=== PATIENT | female | born 1955 | race Caucasian/White ===

== ENCOUNTER → 2023-02-23 11:43 | Outpatient (CLI) | payer MEDICARE, SELFPAY ==
--- NOTE | ~2023-02-23 | XR_ITS ---
AP and lateral views of the bilateral hips Clinical history: Pain Findings: No acute fracture or dislocation is seen. There is severe left hip joint osteoarthritis, kaiden int space narrowing and prominent osteophyte formation. There is reactive sclerotic change. There is minimal degenerative change of the right hip joint.. Soft tissues are unremarkable. Impression: Severe left hip joint osteoarthritis. Minimal right hip joint osteoarthritis. Reviewed, dictated and finalized at location . Impression: Severe left hip joint osteoarthritis. Minimal right hip joint osteoarthritis.
== END ==
PROVIDERS: PCP Internal Medicine; Visit Provider Internal Medicine
DX: M16.0 Bilateral primary osteoarthritis of hip (principal)
CPT/HCPCS: 73521

== ENCOUNTER 2023-03-25 10:05 | Outpatient (CLI) | payer MEDICARE, SELFPAY ==
--- NOTE | 2023-03-25 10:35 | ECG_ITS ---
Measurements Intervals [place] Rate: 61 P: 2 [place]: 212 QRS: 7 QRSD: 74 T: 16 QT: 367 QTc: 371 Interpretive Statements SINUS RHYTHM WITH FIRST DEGREE AV BLOCK WITH OCCASIONAL VENTRICULAR PREMATURE COMPLEXES LOW QRS VOLTAGE IN PRECORDIAL LEADS [QRS DEFLECTION < 1.0 mV IN CHEST LEADS] ABNORMAL ECG NO PREVIOUS ECG AVAILABLE FOR COMPARISON Electronically Signed On 03-25-2023 15:40:38 CDT by Gagan Marquez M.D.
[2023-03-25 10:42] LABS: Hematocrit 42.5 % (37.0-47.0); Hemoglobin 14.4 g/dL (12.0-15.0)
[2023-03-25 10:54] LABS: Urine Cotinine NEGATIVE
[2023-03-25 12:25] LABS: Albumin Level 4.7 g/dL (3.5-5.1); Estimated Glomerular Filt Rate > 60
== END 2023-03-25 10:06 | disposition home or self-care (01) ==
PROVIDERS: PCP Internal Medicine; Visit Provider Orthopaedic Surgery
DX: Z01.810 Encounter for preprocedural cardiovascular examination (principal); Z01.812 Encounter for preprocedural laboratory examination; M16.12 Unilateral primary osteoarthritis, left hip; M54.16 Radiculopathy, lumbar region; E78.5 Hyperlipidemia, unspecified; I10 Essential (primary) hypertension; I44.0 Atrioventricular block, first degree
CPT/HCPCS: 80307; 82040; 82565; 85014; 85018; 93005

== ENCOUNTER 2023-05-27 11:34 | Outpatient (CLI) | payer MEDICARE, SELFPAY ==
[2023-05-27 13:09] LABS: Basophils Percent Auto 0.8 % (0.2-1.2); Eosinophils Absolute Auto 0.1 K/mm3 (0-0.3); Eosinophils Percent Auto 1.6 % (0-4.4); Hematocrit 43.2 % (37.0-47.0); Hemoglobin 14.4 g/dL (12.0-15.0); Immature Granulocyte Absolute 0.01 K/mm3 (0.00-0.031); Immature Granulocyte Percent A 0.2 % (0-0.5); Lymphocytes Absolute Auto 2.39 K/mm3 (0.9-3.2); Lymphocytes Percent Auto 47.4 % (18.3-44.2); Mean Corpuscular HGB Conc 33.3 g/dl (32-36); Mean Corpuscular Hemoglobin 34.4 pg (26-34); Mean Corpuscular Volume 103.3 fl (80-100); Mean Platelet Volume 9.9 fl (7.4-10.4); Monocytes Absolute Auto 0.5 K/mm3 (0.1-0.6); Monocytes Percent Auto 10.5 % (2.6-8.5); Neutrophils Percent Auto 39.5 % (45.5-73.1); Platelet Count Result 199 k/mm3 (150-375); Red Blood Count 4.18 M/mm3 (4.2-5.4); Red Cell Distribution Width 13.2 % (11.5-14.5)
[2023-05-27 13:19] LABS: Urine Cotinine NEGATIVE
[2023-05-27 13:21] LABS: Albumin Level 4.7 g/dL (3.5-5.1); Estimated Glomerular Filt Rate > 60; Glucose 92 mg/dL (65-110)
[2023-05-27 13:23] LABS: Hemoglobin A1C 5.6 % (<5.7)
== END 2023-05-27 11:35 | disposition home or self-care (01) ==
LOC: ANHSURGERY 11:36
PROVIDERS: PCP Internal Medicine; Visit Provider Orthopaedic Surgery
DX: Z01.818 Encounter for other preprocedural examination (principal); M16.12 Unilateral primary osteoarthritis, left hip
CPT/HCPCS: 80307; 82040; 82565; 82947; 83036; 85025; 87081

== ENCOUNTER 2023-06-23 00:07 | Day surgery (SDC) | payer MEDICARE, SELFPAY ==
[2023-05-27 11:45] VITALS: BMI 33.8
--- NOTE | 2023-05-27 12:20 | PC.NURSE ---
Report to the Outpatient Waiting Room, entrance under the green pavilion located off [facility], at time __0630 on date _06/23/23 . Planned Procedure Time: __30 . Time changes happen often and if your time is changed the preop area will call you the afternoon before. - You and your visitor will be asked to self-screen and do not enter if you have any COVID symptoms. - A mask is optional within the hospital at this time. Patients may have clear liquids (water, carbonated beverages, clear teas, apple juice) until 3 hours prior to surgery( 5:30 AM ) with a maximum of 20 ounces. - No food from midnight until time of surgery Take the following medications with a SIP of water the morning of surgery: GABAPENTIN .MORPHINE IF NEEDED FOR PAIN, TRAMADOL DO NOT STOP ANY OF YOUR OTHER PRESCRIPTION MEDICATIONS PRIOR TO SURGERY ?EXCEPT THE FOLLOWING Medications to discontinue per physician ____MAY CONTINUE CELECOXIB PER DR JACOB Please no make-up, nail [place] islander, hairspray, perfume, deodorant, or body powder the day of surgery. No jewelry (including any body piercings) or valuables the day of surgery, leave them at home. Please take a shower or bath the night before, or the morning of, surgery with an antibacterial soap. Wear comfortable, loose fitting clothing. Children are encouraged to wear pajamas. - Jewelry must be removed prior to entering the operating room. Rings and piercings that are not removed may be cut off. - The hospital will not accept responsibility for valuables. - Please leave all valuables, including medications, at home the day of surgery. If you are going home after surgery, a licensed rolloff driver must drive you home. - NO public transportation without another adult if you receive anesthesia. - We recommend that an adult stay with you for 24 hours following discharge. - We also recommend that you do not drive, make important decision, drink alcoholic beverages, or take any drugs that were not prescribed by your health care provider for at least 24 hours after your discharge time. Follow any additional instructions given to you from your surgeon. If you or anyone in your household have experienced Covid symptoms in the past week, please notify your surgeon or the nurse liaison at the phone number below for possible testing. VERBAL AND WRITTEN instructions given to __PATIENT AND SPOUSE MARCHARLENE and asked if any additional questions and then verbalized understanding. Patient advised to call surgeon office or pre surgery nurse liaison [phone] if any additional questions.
[2023-05-27 12:46] VITALS: BP 135/83; PULSE 80; RESP 18; TEMP 36.7; O2SAT 97
[2023-06-23] VITALS (16 sets, daily range): BP systolic 114–153; BP diastolic 63–88; PULSE 64–104; RESP 12–20; TEMP 35.7–37; O2SAT 92–100
--- NOTE | ~2023-06-23 | XR_ITS ---
XR hip LT min 2V DATE: 06/23/2023 11:01 INDICATION: Left total hip replacement, postoperative examination TECHNIQUE: Postoperative AP and crosstable lateral views COMPARISON: 02/23/2023 bilateral hips FINDINGS: There is surgical resection of left femoral head neck and placement of left total hip prost hesis. No fracture or dislocation is evident. There is expected subcutaneous emphysema shortly postop eratively. IMPRESSION: Status post left total hip arthroplasty Reviewed, dictated and finalized at location L. DETAILER
[2023-06-23] MEDS: ACETAMINOPHEN 500 MG TABLET 1000 MG PO (06:46)
[2023-06-23] MEDS: LACTATED RINGERS 1,000 ML 30 ML IV CONT ×3 (06:50→11:48)
--- NOTE | 2023-06-23 07:21 | WPDANESEPPF ---
Anes - Initial Pre Proc Eval Procedure: Operation Date: 06/23/23 08:30 Proposed Procedures p Left Total Hip Arthroplasty - Raul Young MD Date/Time: 06/23/23 07:21 Surgeon: Raul Young MD Pre Op Diagnosis: primary OA left hip Patient Data Age: 67 Gender: F Height: 1.61 m Weight: 86.5 kg Last Vital Signs Temp 37.0 C 06/23/23 06:18 Pulse 72 06/23/23 06:18 Resp 20 06/23/23 06:18 BP 153/82 H 06/23/23 06:18 Pulse Ox 99 06/23/23 06:18 O2 Del Method Room Air 06/23/23 06:18 Allergies Allergy/AdvReac Type Severity Reaction Status Date / Time codeine Allergy Severe hypotension Verified 06/23/23 06:22 /nausea hydrocodone Allergy Mild LOW BLOOD Verified 05/27/23 11:47 PRESSURE zinc Allergy Mild Rash Verified 05/27/23 11:47 amitriptyline Allergy Unknown mouth sores Verified 06/23/23 06:22 fluorescein Allergy Unknown unknown Verified 05/27/23 11:47 medroxyprogesterone Allergy Unknown Nausea Verified 06/23/23 06:22 Penicillins Allergy Unknown Nausea/mouth Verified 06/23/23 06:22 sores rosuvastatin Allergy Unknown Nausea Verified 05/27/23 11:47 Sulfa (Sulfonamide Allergy Unknown Hives Verified 05/27/23 11:47 Antibiotics) keftabs Allergy Intermediate Swelling Uncoded 05/27/23 11:47 FLU/PNEUMONIA VACINE Allergy Mild unknown Uncoded 06/23/23 06:22 TRICYCLICANTIDE Allergy Mild RASH Uncoded 05/27/23 11:47 paper tape Allergy Unknown blisters Uncoded 06/23/23 06:22 Home Medications Medication Instructions Recorded Confirmed Type celecoxib 200 mg capsule 200 mg PO BID 04/09/20 06/23/23 History gabapentin 600 mg tablet 600 mg PO TID 04/09/20 06/23/23 History metoprolol succinate 25 mg 50 mg PO HS 04/09/20 06/23/23 History tablet,extended release 24 hr omeprazole 40 mg capsule,delayed 40 mg PO DAILY 04/09/20 06/23/23 History release tramadol 50 mg tablet 50 mg PO TID PRN Pain 04/09/20 06/23/23 History acetaminophen 500 mg tablet 500 mg PO Q6H PRN Pain 05/27/23 06/23/23 History (Tylenol Extra Strength) azathioprine 50 mg tablet 50 mg PO DAILY 05/27/23 06/23/23 History carbidopa 25 mg-levodopa 100 mg 1 tablet PO HS LEG SPASMS 05/27/23 06/23/23 History tablet fluticasone propionate 50 1 spray intranasal DAILY 05/27/23 06/23/23 History mcg/actuation nasal spray,suspension (Flonase Allergy Relief) golimumab 50 mg/0.5 mL 50 mg subcut .Bi Monthly 05/27/23 06/23/23 History subcutaneous pen injector (Simponi) morphine 30 mg capsule,extended 15 mg PO DAILY PRN Pain 05/27/23 06/23/23 History release 24 hr multiphase ondansetron HCl 4 mg tablet 4 mg PO Q8H PRN NASEA 05/27/23 06/23/23 History prednisone 5 mg tablet 5 mg PO DIRECTED SWELLING 05/27/23 06/23/23 History Patient hx anesthesia problems: post op nausea/vomiting Family hx anesthesia problems: post op nausea/vomiting Results Review: All pre-operative results and documents have been reviewed as part of the pre-operative evaluation. FORMERLY [facility], [facility]–1983 Past Medical History Medical History Fibromyalgia Fibrositis GERD (gastroesophageal reflux disease) Hyperlipidemia Hypertension Insomnia Osteoporosis Reflex sympathetic dystrophy of left lower extremity Rheumatoid arthritis Social History Social History Smoking status: Never smoker Tobacco type: cigarettes Smoking end date: 07/23/69 Additional smoking assessment comments: DENIES ANY FORM OF TOBACCO USE Alcohol intake: former Substance use: never Lack of Transportation: No Lack of Food: Never True Current Housing: I Have Housing Concerned About Future Housing: No Difficulty Paying Gas/Electric Bills: No Difficulty Paying for Meds: No Currently Unemployed: No Education: High School Diploma/GED Difficulty w/ Childcare or Family Care: No Living arrangements: with family Spiritual care concerns: No
--- NOTE | 2023-06-23 07:23 | WPDHPUPDATE1 ---
History and Physical Update Update Date/Time: 06/23/23 07:23 History and Physical has been reviewed, including an updated exam of the patient. There are NO changes in the patient's condition. Risks, benefits, and alternatives have been discussed and questions answered. Patient agrees to proceed with procedure.
[2023-06-23] MEDS: SCOPOLAMINE 1 MG PATCH 1 PATCH TRANSDERM (07:39)
[2023-06-23] MEDS: TRANEXAMIC ACID 1,000MG/ISO100 1,000 MG/100 ML BAG 200 MG IVPB (08:15)
[2023-06-23] MEDS: ceFAZolin 2 GM/D5W 50 ML 2 GM/50 ML BAG IVPB (08:33)
--- NOTE | 2023-06-23 11:13 | W.PM.PROC2 ---
Procedure Note - Detailed Date of Procedure 06/23/23 Pre-op Diagnosis primary OA left hip Post-op Diagnosis Same Procedure Performed Left Total Hip Arthroplasty Surgeon Raul Young MD Anesthesia General Description of Procedure The patient was given preoperative antibiotics. A general anesthetic was administered. The patient was carefully placed in the lateral decubitus position on the PEG board. The shoulders and hips were carefully positioned for component and leg length positioning reference. The hip was prepped and draped in the usual sterile fashion. A longitudinal incision was created over the posterior aspect of the greater trochanter. Careful dissection was brought down through the deep fascia with electrocautery. A minimally invasive optimized posterior approach to the hip was performed. The short external rotators and capsule were taken down in an L-shaped capsulotomy. The tissue was tagged for later repair using number 2 high strength suture. The femoral neck was measured and taken in situ. The femoral head was removed. The acetabulum was carefully exposed. The inferior capsule was released. The labrum was resected. The acetabulum was sequentially reamed to the intended cup size. The cup was impacted into position with excellent press-fit. Typical anatomic landmarks, including the bony contact points as well as the inferior transverse acetabular ligament were used to confirm cup positioning with preoperative templating. Attention was turned to the femur, which was carefully exposed. The hip was reamed and then broached sequentially. Excellent press-fit was obtained with the broach. The hip was trialed. Measurements were utilized, including the lesser trochanter as well as the center of the femoral head and the tip of the trochanter, and excellent assessment of the offset and leg lengths were confirmed. The real component was impacted into position. Trialing confirmed appropriate leg length and offset with soft tissue balancing as well apparent feel of the leg, both at the knee and the heel. Soft tissues were assessed using the the iliotibial band. Reduction of the posterior capsule and external rotators were also used as a secondary assessment. The hip was copiously irrigated with pulsatile lavage antibiotic solution periodically throughout the procedure. The real components were then assembled and reduced. The hip was stable throughout typical maneuvers, including extension, external rotation to 70 degrees, the position of sleep as well as flexion to 90 degrees with internal rotation past 45 degrees. The shake test confirmed stability without impingement. Osteophytes were removed as necessary. The short external rotators and capsule were repaired back to the posterior trochanter through drill holes. The deep fascia was repaired with running number 2 Quill suture, followed by 0 Stratafix suture and 2-0 Stratafix suture in the dermis. Steri-Strips were placed on the skin, followed by a sterile silver occlusive dressing. There were no complications. Meticulous hemostasis was maintained with the AquaMantys device. The patient was brought to the recovery room in stable condition. There were no complications. Implants The Accolade II hip stem, 127 degree size 5 , was utilized with excellent press-fit. The 52 mm Trident II acetabular component was impacted with excellent press-fit stability. The +2.5, 36 mm Biolox ceramic femoral head was utilized. 10 degree elevated liner. Estimated Blood Loss 200 Drains No Packing No Pathology None sent Complications No immediate complications Condition Stable Disposition PACU [facility] Billing Surgery - Charge Forward: Surgery Billing
[2023-06-23] MEDS: fentaNYL CITRATE INJ (*CRX) 100 MCG/2 ML VIAL 25 MCG IV PUSH ×8 (11:15→11:57)
[2023-06-23 12:27] LABS: Hematocrit 37.5 % (37.0-47.0); Hemoglobin 12.4 g/dL (12.0-15.0)
--- NOTE | 2023-06-23 12:33 | ADMGEN ---
This patient, Lexi Mcneil, was admitted to 3 [facility] Surg Room 323-01. Patient/family oriented to hospital policies and general routines including ID bracelet, bed and alarms, visiting hours, pain management, procedures, bathroom and other care routines, personal items, smoking policy, room service/diet, and visiting hours. Information on how to activate the Rapid Response Team has been discussed. Patient/Family are encouraged to report perceived risks to care and to ask questions if they do not understand what they are told or what they should do.
[2023-06-23] MEDS: oxyCODONE HCL (*CRX) 5 MG TAB IR 10 MG (13:57)
[2023-06-23] MEDS: VANCOMYCIN 1,000 MG/NS 250 ML 1,000 MG/250 ML BAG 250 MG IVPB (18:04)
[2023-06-23] MEDS: CELECOXIB 200 MG CAPSULE PO (18:05)
[2023-06-23] MEDS: SENNA/DOCUSATE SODIUM TABLET 2 TAB PO (18:05)
[2023-06-23] MEDS: ASPIRIN 81 MG ENTERIC TABLET PO (18:05)
[2023-06-23] MEDS: oxyCODONE HCL (*CRX) 5 MG TAB IR PO (18:15)
--- NOTE | 2023-06-23 18:55 | PC.NURSE ---
This pt ok'ed by Hannah to take her home morphine medication. Pt did not bring medication with except for loose pills (not in pharmaceutical bottle). Pt stated she would just take some of her own medication. Informed pt she was not to take her own medications, that we would give those. Asked to take her home medications home with him as we would provide all of her meds. Pt and agreeable. Pharmacy requested clarification. Will treat with PRNs available at this time and seek clarification with Hannah 06/24/23 AM
[2023-06-23] MEDS: PANTOPRAZOLE 40 MG TABLET PO (21:02)
[2023-06-23] MEDS: CARBIDOPA/LEVODOPA 25/100 MG TABLET 1 TABLET PO (21:02)
[2023-06-23] MEDS: GABAPENTIN 300 MG CAPSULE 1200 MG PO (21:02)
[2023-06-23] MEDS: METOPROLOL SUCCINATE EXT REL 50 MG TABCR PO (21:02)
[2023-06-23] MEDS: oxyCODONE HCL (*CRX) 5 MG TAB IR 10 MG PO (22:25)
[2023-06-24 00:35] VITALS: BP 110/65; PULSE 88; RESP 16; TEMP 36.2; O2SAT 94
[2023-06-24] MEDS: VANCOMYCIN 1,000 MG/NS 250 ML 1,000 MG/250 ML BAG 250 MG IVPB (04:51)
[2023-06-24] MEDS: oxyCODONE HCL (*CRX) 5 MG TAB IR 10 MG PO ×2 (04:51→10:13)
[2023-06-24 05:10] VITALS: BP 116/71; PULSE 90; RESP 18; TEMP 36.1; O2SAT 98
[2023-06-24 06:50] LABS: Basophils Percent Auto 0.2 % (0.2-1.2); Hematocrit 37.4 % (37.0-47.0); Hemoglobin 11.3 g/dL (12.0-15.0); Immature Granulocyte Absolute 0.05 K/mm3 (0.00-0.031); Immature Granulocyte Percent A 0.4 % (0-0.5); Lymphocytes Absolute Auto 1.87 K/mm3 (0.9-3.2); Lymphocytes Percent Auto 15.4 % (18.3-44.2); Mean Corpuscular HGB Conc 30.2 g/dl (32-36); Mean Corpuscular Hemoglobin 34.2 pg (26-34); Mean Corpuscular Volume 113.3 fl (80-100); Mean Platelet Volume 10.4 fl (7.4-10.4); Monocytes Absolute Auto 1.1 K/mm3 (0.1-0.6); Neutrophils Absolute Auto 9.1 K/mm3 (1.3-6.7); Platelet Count Result 122 k/mm3 (150-375); Red Cell Distribution Width 13.1 % (11.5-14.5); White Blood Count 12.1 K/mm3 (4.5-10.0)
[2023-06-24 09:04] LABS: Platelet Estimate Decreased (Adequate)
[2023-06-24 09:05] LABS: Schistocytes None Seen (NORMAL)
[2023-06-24 09:19] LABS: Anion Gap 10 mmol/L (8-16); Blood Urea Nitrogen 20 mg/dL (7-17); Calcium 8.9 mg/dL (8.4-10.2); Carbon Dioxide 22 mmol/L (22-30); Chloride 105 mmol/L (98-107); Estimated CRCL calculation 72 ml/min; Estimated Glomerular Filt Rate > 60; Glucose 101 mg/dL (65-110); Potassium 4.3 mmol/L (3.4-5.0); Sodium 137 mmol/L (137-145)
[2023-06-24 09:51] VITALS: BP 126/55; PULSE 96; RESP 18; TEMP 36.1; O2SAT 98
[2023-06-24] MEDS: CELECOXIB 200 MG CAPSULE PO (10:11)
[2023-06-24] MEDS: PANTOPRAZOLE 40 MG TABLET PO (10:11)
[2023-06-24] MEDS: GABAPENTIN 300 MG CAPSULE 600 MG PO (10:11)
[2023-06-24] MEDS: azaTHIOprine 50 MG TABLET PO (10:12)
[2023-06-24] MEDS: ASPIRIN 81 MG ENTERIC TABLET PO (10:12)
[2023-06-24] MEDS: ACETAMINOPHEN 325 MG TABLET 650 MG PO (10:18)
--- NOTE | 2023-06-24 10:18 | WPDANESPN ---
Anes - Prog Note Post-Op Date/Time: 06/24/23 10:18 Cardiovascular status: normal Respiratory status: normal Airway patency: baseline Mental status: baseline Post-Op hydration status: normal Vital Signs: Last Vital Signs Temp 36.1 C L 06/24/23 05:10 Pulse 90 06/24/23 05:10 Resp 18 06/24/23 05:10 BP 116/71 06/24/23 05:10 Pulse Ox 98 06/24/23 05:10 O2 Del Method Room Air 06/23/23 22:03 O2 Flow Rate 3 06/23/23 12:30 Pain Score (VAS): 2 I/O: Intake & Output 06/23/23 06/24/23 06/24/23 23:59 07:59 15:59 Intake Total 490 1070 Balance 490 1070 Laboratory Tests 06/24/23 06:14 06/24/23 06:14 06/23/23 06/24/23 12:24 06:14 WBC 12.1 H RBC 3.30 L Hgb 12.4 11.3 L Hct 37.5 37.4 MCV 113.3 H MCH 34.2 H MCHC 30.2 L RDW 13.1 Plt Count 122 L MPV 10.4 Immature Gran % (Auto) 0.4 Neut % (Auto) 75.0 H Lymph % (Auto) 15.4 L [place] % (Auto) 9.0 H Eos % (Auto) 0.0 Baso % (Auto) 0.2 Lymph # (Auto) 1.87 [place] # (Auto) 1.1 H Eos # (Auto) 0.0 Baso # (Auto) 0.0 Abs Immat Gran (auto) 0.05 H Absolute Neuts (auto) 9.1 H Absolute Nucleated RBC 0.0 Nucleated RBC % 0.0 Platelet Estimate Decreased Schistocytes None seen Sodium 137 Potassium 4.3 Chloride 105 Carbon Dioxide 22 Anion Gap 10 BUN 20 H Creatinine 0.70 Estim Creat Clear Calc 72 Estimated GFR > 60 Glucose 101 Calcium 8.9 Post-procedural complaints: none Patient Feedback: Patient satisfied with anesthetic care.
== END 2023-06-24 14:05 | disposition home or self-care (01) ==
LOC: ANHSURGERY 07:33 → ANH3MEDSUR 12:09
PROVIDERS: PCP Internal Medicine; Visit Provider Orthopaedic Surgery
PROC: (CPT 27130; principal; 2023-06-23 08:30)
DX: M16.12 Unilateral primary osteoarthritis, left hip (principal); G90.522 Complex regional pain syndrome I of left lower limb; I10 Essential (primary) hypertension; E78.5 Hyperlipidemia, unspecified; K21.9 Gastro-esophageal reflux disease without esophagitis; M79.7 Fibromyalgia; M06.9 Rheumatoid arthritis, unspecified; M81.0 Age-related osteoporosis without current pathological fracture; Z87.891 Personal history of nicotine dependence; E66.9 Obesity, unspecified; Z68.34 Body mass index [BMI] 34.0-34.9, adult; Z79.620 Long term (current) use of immunosuppressive biologic
CPT/HCPCS: 27130; 36415; 73502; 80048; 85014; 85018; 85025; 86850; 86900; 86901; 97110; 97116; 97161; 97165; 97530; 97535; A9270; C1776; J0171; J0330; J0690; J1100; J1170; J1596; J1885; J2250; J2405; J2704; J2795; J3010; J3370; J7120

== ENCOUNTER 2023-10-05 13:13 | Outpatient (CLI) | payer MEDICARE, SELFPAY ==
--- NOTE | ~2023-10-05 | MR_ITS ---
EXAMINATION: MR lumbar spine wo con DATE: 10/05/2023 14:15 INDICATION: Radiculopathy, lumbar region. TECHNIQUE: Magnetic resonance imaging (MRI) of the lumbar spine was performed without intravenous con trast. Sequences included sagittal T2-weighted FSE, sagittal T2-weighted FS FSE, sagittal T1-weighted FSE, and axial T2-weighted FSE. COMPARISON: None FINDINGS: There is 20 degrees levoscoliosis of thoracolumbar spine. There is 3 mm retrolisthesis of L 2 on L3 and L3 on L4 and 3 mm anterolisthesis of L4 on L5. There is mildly decreased disc height at T 11-T12 and T12-L1, severely decreased disc height from L1-L2 through L3-L4, mildly decreased disc hei ght at L4-L5, and severely decreased disc height at L5-S1. The distal spinal cord signal intensity is normal. The conus medullaris is at T12-L1. The following disc levels are specifically discussed: L1-L2: The disc is bulging and has an annular fissure. There is severe bilateral facet joint osteoart hritis. There is moderate right and mild left neural foraminal stenosis. There is mild central canal stenosis. L2-L3: The disc is bulging. There is severe bilateral facet joint osteoarthritis. There is moderate b ilateral neural foraminal stenosis. There is mild central canal stenosis. L3-L4: The disc is bulging. There is severe bilateral facet joint osteoarthritis. There is mild right and moderate left neural foraminal stenosis. There is mild central canal stenosis. There is severe s tenosis of left lateral recess. L4-L5: The disc is bulging and has an annular fissure. There is severe bilateral facet joint osteoart hritis. There is mild bilateral neural foraminal stenosis. There is severe central canal stenosis. L5-S1: The disc is bulging and has an annular fissure. There is severe bilateral facet joint osteoart hritis. There is moderate bilateral neural foraminal stenosis. There is moderate central canal stenos is. IMPRESSION: 1. Severe lumbar spondylosis. 2. Thoracolumbar levoscoliosis. Reviewed, dictated and finalized at location E.
== END 2023-10-05 13:14 | disposition home or self-care (01) ==
LOC: ANHIMG 13:14
PROVIDERS: PCP Internal Medicine; Visit Provider Physician Assistant Surgical
DX: M43.06 Spondylolysis, lumbar region (principal); M41.85 Other forms of scoliosis, thoracolumbar region
CPT/HCPCS: 72148

== ENCOUNTER 2024-04-04 08:55 | Outpatient (CLI) | payer MEDICARE, SELFPAY ==
--- NOTE | ~2024-04-04 | XR_ITS ---
XR knee LT min 4V 04/04/2024 09:27 Indication: Left knee pain Procedure: 4 views left knee Comparison: 12/23/2021 Findings: There is a age-indeterminate lateral tibial plateau fracture, new since prior study. There is advanced osteoarthritis of the left knee. Small joint effusion. Impression: 1: Age-indeterminate lateral tibial plateau fracture, comminuted since 12/23/2021. 2: Severe tricompartment osteoarthritis. Reviewed, dictated and finalized at location B. Impression: 1: Age-indeterminate lateral tibial plateau fracture, comminuted since 2. 2: Severe tricompartment osteoarthritis.
--- NOTE | ~2024-04-04 | XR_ITS ---
XR hip LT 2V w AP pelvis Ordering provider: Raul Young MD History: . Z96.642 - Presence of left artificial hip joint . Comparison: October 19, 2023 FINDINGS: BONES: No acute fracture or dislocation. HIP JOINT SPACES: Left hip arthroplasty. Mild to moderate osteoarthritic changes of the right hip. SACROILIAC JOINT SPACES/LUMBAR SPINE: The sacroiliac joint spaces are normal. Mild degenerative tellez es of the visualized lower lumbar spine. PUBIC SYMPHYSIS: Normal. SOFT TISSUES: Soft tissue ossification or calcification lateral to the left hip. IMPRESSION: No acute osseous abnormality pelvis. Left hip arthroplasty unchanged Reviewed, dictated and finalized at location A.
== END 2024-04-04 08:56 | disposition home or self-care (01) ==
PROVIDERS: PCP Internal Medicine; Visit Provider Orthopaedic Surgery
DX: M25.562 Pain in left knee (principal); Z96.642 Presence of left artificial hip joint
CPT/HCPCS: 73502; 73564

== ENCOUNTER 2024-04-12 09:08 | Outpatient (CLI) | payer MEDICARE, SELFPAY ==
--- NOTE | ~2024-04-12 | CT_ITS ---
EXAMINATION: CT LE LT wo con DATE: 04/12/2024 09:42 INDICATION: Urinary primary osteoarthritis of left knee. TECHNIQUE: Computed tomography (CT) of the left lower limb was performed without intravenous contrast . Automated exposure control and iterative reconstruction technique were employed. The dose-length pr oduct was 1605.63 mGy-cm. COMPARISON: Left knee radiographs 04/04/2024, 12/23/2021 FINDINGS: There is a total left hip arthroplasty in near-anatomic alignment. No fracture. No peripros thetic lucency to suggest loosening or infection. There is a fracture deformity involving the medial and lateral tibial condyles with 11 mm depression of articular surface of lateral tibial condyle. The re is severe osteoarthritis of medial compartment and moderate osteoarthritis of lateral and patellof emoral compartments. There are loose bodies in the knee joint. There is a small knee joint effusion. IMPRESSION: 1. Fracture deformities of medial and lateral tibial condyles, likely subacute or chronic. 2. Severe left knee osteoarthritis. 3. Small left knee joint effusion with loose bodies. 4. Total left hip arthroplasty in near-anatomic alignment. Reviewed, dictated and finalized at location B.
== END 2024-04-12 09:09 | disposition home or self-care (01) ==
PROVIDERS: PCP Internal Medicine; Visit Provider Orthopaedic Surgery
DX: M17.12 Unilateral primary osteoarthritis, left knee (principal); M25.462 Effusion, left knee; M23.42 Loose body in knee, left knee; Z96.642 Presence of left artificial hip joint
CPT/HCPCS: 73700

== ENCOUNTER 2024-06-10 07:48 | Outpatient (CLI) | payer MEDICARE, SELFPAY ==
[2024-06-10 09:18] LABS: Urine Cotinine NEGATIVE
[2024-06-10 11:26] LABS: MRSA (PCR) NOT DETECTED (NOT DETECTE)
--- OUTSIDE RECORDS SUMMARY | 2024-06-17 14:43 | XMS_ITS | Encounter Summary ---
Author Organization [facility] Address [address] [place], [place] [address] [address] Care Team Providers Care Skein Mercerizing Machine Operator Name Role Phone Tim Altman MD Primary Care Provider [phone] Vani Waldrop MD Unavailable [phone] Casper Smith MD Unavailable Unavailable Reason for Visit * Reason Comments Rheumatoid Arthritis Fibromyalgia Encounter Details Date Type Department Care Team (Late st Contact Info) Description 10/19/2014 9:15 AM CDT Office Visit [facility] - Rheumatology [address] [place] [address] [phone] Casper Smith MD Rheumatoid arthritis(714.0) (HCC) (Primary Dx); Carpal tunnel syndrome, left; DJD (degenerative joint disease) of knee; Fibromyalgia; Insomnia; High risk medications (not anticoagulants) long-term use Social History Tobacco Use Types Packs/Day Years Used Date Smoking Tobacco: Never Smokeless Tobacco: Never Alcohol Use Standard Drinks/Week Comments No 0 (1 standard drink = 0.6 oz pur e alcohol) Sex and Gender Information Value Date Recorded Sex Assigned at Not on file Gender Identity Not on file Sexual Orientation Not on file documented as of this encounter Last Filed Vital Signs Vital Sign Reading Time Taken Comments Blood Pressure 122/76 10/19/2014 9:34 AM CDT Pulse 76 10/19/2014 9:34 AM CDT Temperature - - Respiratory Rate - - Oxygen Saturation - - Inhaled Oxygen Concentration - - Weight 100.5 kg (221 lb 9.6 oz) 10/19/2014 9:34 AM CDT Height 162.6 cm (5' 4 ) 10/19/2014 9:34 AM CDT Body Mass Index 38.04 10/19/2014 9:34 AM CDT documented in this encounter Progress Notes * Yeny Oro MA - 10/20/2014 9:55 AM CDTQuick Note: Labs are OK No change in plan needed Call us or send a Om[employer] Message with any problems * Yeny Oro MA - 10/19/2014 1:02 PM CDT Hum[facility] to [facility] * Casper Smith MD - 10/19/2014 9:58 AM CDT Subjective: Lexi Mcneil is a 59 y.o. female referred By Tim Altman for evaluation and treatment of chronic pain Who was seen today for Chief Complaint Patient presents with ??? Rheumatoid Arthritis ??? Fibromyalgia She still has some poorly controlled tenosynovitis in the wrists with nocturnal CTS symptoms on theleft. She had similar problems on the right and a difficult time with CTS surgery She will get a cock up wrist splint and report her response to this conservative approach. She also struggles with toe pain and it seems her RA is still active at times despite Humira and MTX. CBC CMP CRP today Health Assessment Questionnaire MHAQ: 3.3 Pain: 5.5 Global: 5.5 Rapid 3: 14.3 GI: 1.5 Fatigue: 2.5 Patient Active Problem List Diagnosis Date Noted ??? Rheumatoid arthritis 08/09/2013 Daily morning stiffness, polyarticular arthritis, inflammatory fluid from recent knee aspiration, history of elevation of CRP, so far seronegative and CCP negative, Originally had features of polymyalgia rheumatica had a good a temporary response to Remicade and methotrexate as attempts to wean prednisone were unsuccessful 08/09/2013 R3=20.7 on MTX and off Remicade Right knee >>Left knee flare Type 2 mildly inflammatory fluid given History of good but temporary response to steroid injection in past. 03/22/2014 Still very symptomatic despite MTX and Azathioprine with prednisone 5 mg daily Will evaluate for home injected Biologic agent soon TNF for now ??? Restless legs syndrome (RLS) 05/15/2011 05/15/2011 will start Simenet ??? DJD (degenerative joint disease) of knee 10/18/2010 occasional flare ??? Insomnia 10/18/2010 ??? Fibromyalgia 10/17/2010 10/17/2010 chart abstraction Outpatient Prescriptions Prior to Visit Medication Sig Dispense Refill ??? methotrexate 2.5 MG tablet TAKE 8 TABS BY MOUTH EVERY 7 DAYS 32 Tab 5 ??? adalimumab (HUMIRA) 40 MG/0.8ML injection Inject 40 mg subcutaneously every 14 days. Pen only ??? traMADol (ULTRAM) 50 MG tablet TAKE TWO TABLETS BY MOUTH THREE TIMES DAILY WITH TYLENOL 180 Tab5 ??? gabapentin (NEURONTIN) 600 MG tablet TAKE ONE TABLET BY MOUTH IN THE MORNING AND TWO IN THE EVENING 90 Tab 9 ??? carbidopa-levodopa CR (SINEMET CR) 50-200 MG tablet TAKE ONE TABLET BY MOUTH TWICE A DAY 60 Tab6 ??? predniSONE (DELTASONE) 20 MG tablet 40mg daily x 2 days, 30mg x 3 days, 20mg x 3 days, 10mg x 3days and then stop 20 Tab 0 ??? folic acid (FOLVITE) 1 MG tablet TAKE 2 TABLETS BY MOUTH ONCE A DAY 60 Tab 11 ??? sertraline (ZOLOFT) 100 MG tablet TAKE ONE TABLET BY MOUTH DAILY 30 Tab 11 ??? meloxicam (MOBIC) 7.5 MG tablet Take 1-2 Tabs by mouth once daily. for 7 days to treat flare ups of pain and inflammation Repeat as needed or call Dr Smith if not better 30 Tab 6 ??? acetaminophen (TYLENOL) 500 MG tablet Take 2 Tabs by mouth 3 times daily. Maximum allowable Acetaminophen amount = 4 Grams (4000 mg) / 24 hours. ??? ALPRAZolam (XANAX) 0.5 MG tablet Take 0.5 mg by mouth 2 times daily. ??? metoprolol tartrate IR (LOPRESSOR) 25 MG tablet Take 25 mg by mouth 2 times daily. ??? omeprazole (PRILOSEC) 40 MG capsule Take 40 mg by mouth 2 times daily. ??? Cyanocobalamin (B-12) 1000 MCG TBCR Take by mouth daily. ??? Calcium Carbonate-Vit D-Min (CALCIUM 1200 PO) Take by mouth daily. ??? ondansetron, disintegrating, (ZOFRAN ODT) 4 MG tablet Take 4 mg by mouth every 6 hours as needed. Allow tablet to dissolve on the tongue ??? azaTHIOprine (IMURAN) 50 MG tablet Take 2 Tabs by mouth once daily. 60 Tab 6 No facility-administered medications prior to visit. Past Medical History Diagnosis Date ??? PMR (polymyalgia rheumatica) ??? Fibromyalgia ??? RSD (reflex sympathetic dystrophy) Past Surgical History Procedure Laterality Date ??? Pr temporal artery ligatn or bx ??? Ankle fracture repair w levy, distal tibia History Social History ??? Marital Status: Spouse Name: Carlitos Number of Children: 2 ??? Years of Education: N/A Occupational History ??? Disability Ankle fracture Social History Main Topics ??? Smoking status: Never Smoker ??? Smokeless tobacco: Never Used ??? Alcohol Use: No ??? Drug Use: No Comment: no IVDA ??? Sexual Activity: Partners: Male Other Topics Concern ??? Not on file Social History Narrative Family History Problem Relation Age of Onset ??? Osteoarthritis Mother ??? Hypertension Mother ??? Coronary Artery Disease Mother Allergies as of 10/19/2014 - reviewed 03/22/2014 Allergen Reaction Noted ??? Amitriptyline 10/17/2010 ??? Codeine 10/18/2010 ??? Crestor [rosuvastatin] 10/17/2010 ??? Sulfa drugs 10/17/2010 ??? Vicodin [hydrocodone-acetaminophen] 10/17/2010 ??? Pcn [penicillins] Rash 10/17/2010 ??? Fluorescein Swelling 12/24/2010 ??? Other 10/18/2010 ??? Provera [medroxyprogesterone acetate] 10/17/2010 ??? Vytorin 10/17/2010 ??? Zinc 10/18/2010 (Note to reader: This HPI form is designed for simple input of positive results. If during the course of the interview and exam a positive finding is noted the associated text will be highlighted to indicate the presence of the abnormal finding. If there is no highlighting of the involved field it is intended to indicate that the finding is not present.) Review of Systems: (negative responses are normal text, positives are highlighted) GENERAL: fever, chills, sweats, weight loss, weight gain, EYES: Vision loss, glaucoma, cataract, Uveitis, dry eyes, nighttime diplopia EARS: wax, hearing loss, ear cartilage pain NOSE: runny nose, bleeding, sinus drainage, MOUTH: Decay, Tooth loss, thrush, dry mouth, ulcers, angular cheilosis. GI: nausea, vomiting, abdominal pain, constipation, GERD HEART: chest pain, palpitations, orthopnea, syncope, effusion, LUNGS: shortness of breath, cough, pleurisy, wheezing, TATIANA, CPAP, : nocturia, dysuria, frequency, urgency, kidney stones. SKIN: rash, itching, dry skin, acne, MS: muscle weakness , muscle tenderness , joint pain , cramps , NEURO: Headaches , seizures , dizziness , confusion , numbness , tingling, tremor, HEME: bruising bleeding, swollen glands EXTREMITIES: cyanosis, clubbing, edema, DVT , Circulatory problems , Raynaud, finger ulcers, ENDOCRINE: Amenorrhea, cold intol, elevated BS, Fatigue, PSYCH: depression, anxiety, spousal abuse, child abuse, addiction, suicide, insomnia, daytime sleepiness, Objective: BP 122/76 Pulse 76 Wt 100.517 kg (221 lb 9.6 oz) BMI 38.02 kg/m2 FiO2: Body mass index is 38.02 kg/(m^2). (negative exam findings are in normal text, positive findings are highlighted below) SJ=2 TJ=5 Nodules=0 GEN: anxious , confused , thin , obese, Cushingoid, ASSISTIVE DEVICE: bedside commode, cane, crutches, prosthesis, splint/brace, walker and wheelchair HEENT: [place] PASS , cerumen , anisocoria, retinal, hemorrhage, thrush, dry mouth, bad teeth, Limited oral aperture, apthous ulcers, salivary gland enlargement right facial tenderness and tinnels NECK: bruits, adenopathy, thyroid, reduced ROM, radicular pain radiation, LUNGS- diffuse crackles, rhonchi , wheezes , dullness in base , kyphosis, rib tenderness , HEART- irregular Murmur , S3 , S4 , abn PMI , ABDOMEN- tender , mass , hepatomegaly , splenomegaly , adenopathy , hernia , CIRCULATION: no swelling, intact pulses, venous stasis, homans , cords , ulcer, capillary refill delayed , cool fingers, Raynaud???s, SKIN- malar rash, rosacea, hair loss, jaundice, abn mole, discoid, scars, folliculitis, tight Digital skin, diffuse sclerodermatous change on trunk, NEURO: Confused, weak, tremulous Stocking distribution poor light touch/vib/, JOINTS: HANDS: Joints: tender swollen MCP PIP, Tender right distal course of the flexor carpi radialis tendon or the 1st compartment of the wrist see notes from ultrasound exam [place] Jina nodes, abn 1st CMC,Flexor tend, Finger Deformity: [place] neck/ [place]re/ [place] finger, Ulnar deviation, Dupuytren's, Nail abnormality: onycholysis, ingrown nail, Felon, Clubbing, Carpal / Ulnar tunnel: Tinnels / simin's, no Thenar atrophy, no Ulnar atrophy, LEft Elbow tender over left lateral epicondyle NECK: reduced neck ROM with pain, spurling positive, occipital pain numbness tinels, SHOULDER: Joint: swelling pain warmth, AC e/t, passive ROM limited, impingement sign THORACIC: kyphosis, scoliosis, spinous process tenderness, LUMBAR: Reduced ROM, Tender paraspinous muscles , SLR positive below knee Elliot's index HIPS: tender trochanter normal ROM, normal femoral pulsation, reduced ROM KNEES: Right warm, tender, left TKA, valgus, Varus, unstable, flexion <90, Ext limit to 5 FEET/ANKLE: Pes planus, medial ankle swelling/tenderness, onycholysis, Tinea Pedis, plantar fascia,post tibial tendonitis, MTP tend/deformity, Hammer toes, Hallux valgus, TRIGGER POINTS: Low Cervical Region, Second Rib, Occiput, Trapezius Muscle, Supraspinatus Muscle, Lateral Epicondyle, Gluteal, Greater Trochanter and Knee Diagnosis: Encounter Diagnoses Name Primary? Rheumatoid arthritis Yes ??? Carpal tunnel syndrome, left ??? DJD (degenerative joint disease) of knee ??? Fibromyalgia ??? Insomnia ??? High risk medications (not anticoagulants) long-term use Immunization History Administered Date(s) Administered ??? Hyaluronan/Deriv Euflexxa 11/30/2013, 12/07/2013, 12/14/2013 ??? Methylprednisolone 20mg 02/08/2014, 06/22/2014 ??? Methylprednisolone 40mg 01/23/2011 ??? Methylprednlsolone 80mg 12/09/2011, 11/15/2012, 02/28/2013, 07/04/2013, 08/09/2013, 12/07/2013,12/14/2013 ??? PPD 02/28/2013 ??? Synvisc Inj 12/02/2011, 12/02/2011, 12/09/2011, 12/09/2011, 12/16/2011, 12/16/2011 Plan: Orders Placed This Encounter ??? CBC W AUTO DIFFERENTIAL ??? COMPREHENSIVE METABOLIC PANEL ??? C-REACTIVE PROTEIN Plan Zoloft 50-100 mg daily Gabapentin 600-1200 mg nightly Tylenol 1 gm tid Tramadol 100 mg tid Humira every two weeks Methotrexate 20 mg weekly with Folic acid 1 mg daily Sinemet CR 50/250 bid Meloxicam 15 mg loading dose then 7.5 mg daily for 7 days for flares CBC CMP CRP today F/U: Return in about 6 months (around 04/21/2015). documented in this encounter Miscellaneous Notes * Addendum Note - Yeny Oro MA - 10/19/2014 10:34 AM CDTAddended by: YENY ORO on: 10/19/2014 10:34 AM Modules accepted: Orders documented in this encounter Plan of Treatment Not on file documented as of this encounter Procedures Procedure Name Priority Date/Time Associated Diagnosis Comments C-REACTIVE PROTEIN Routine 10/19/2014 10 :39 AM CDT Rheumatoid arthritis(714.0) (HCC) CBC W AUTO DIFFERENTIAL Routine 10/19/2014 10:39 AM CDT High risk medications (not anticoagulants) long-term use COMPREHENSIVE METABOLIC PANEL Routine 10/19/2014 10:39 AM CDT High risk medications (not anticoagulants) long-term use documented in this encounter Results * C-REACTIVE PROTEIN (10/19/2014 10:39 AM CDT) C-Reactive Protein 0.7 0.0 - 4.9 mg/L [facility] ACCOUNT BILL Blood specimen (specimen) BLOOD SPECIMEN / Unknown 10/19/2014 10:39 AM CDT 10/19/2014 12:45 PM CDT Narrative Resulting Agency Comment [facility] [address] ??[facility] [id number] Casper Smith MD LAB - CHEMISTRY CHELI SAAB [facility] ACCOUNT BILL * (ABNORMAL) COMPREHENSIVE METABOLIC PANEL (10/19/2014 10:39 AM CDT) Glucose 92 65 - 99 mg/dL [facility] ACCOUNT BILL BUN 14 8 - 27 mg/dL [facility] ACCOUNT BILL Creatinine 0.85 0.57 - 1.00 mg/dL [facility] ACCOUNT BILL eGFR by MDRD 75 >59 mL/min/1.7 3 [facility] ACCOUNT BILL eGFR by MDRD 86 >59 mL/min/1.7 3 [facility] ACCOUNT BILL BUN/Creatinine Ratio 16 11 - 26 [facility] ACCOUNT BILL Sodium 140 134 - 144 mmol/L [facility] ACCOUNT BILL Potassium 4.5 3.5 - 5.2 mmol/L [facility] ACCOUNT BILL Chloride 98 97 - 108 mmol/L [facility] ACCOUNT BILL CO2 24 18 - 29 mmol/L [facility] ACCOUNT BILL Calcium 10.2 8.7 - 10.3 mg/dL [facility] ACCOUNT BILL Protein Total 7.2 6.0 - 8.5 g/dL [facility] ACCOUNT BILL Albumin 4.6 3.6 - 4.8 g/dL [facility] ACCOUNT BILL Globulin Total 2.6 1.5 - 4.5 g/dL [facility] ACCOUNT BILL Albumin/Globulin Ratio 1.8 1.1 - 2.5 [facility] ACCOUNT BILL Bilirubin Total 0.4 0.0 - 1.2 mg/dL [facility] ACCOUNT BILL Alkaline Phosphatase 75 39 - 117 IU/L [facility] ACCOUNT BILL AST 59(H) 0 - 40 IU/L [facility] ACCOUNT BILL ALT 24 0 - 32 IU/L [facility] ACCOUNT BILL Blood specimen (specimen) BLOOD SPECIMEN / Unknown 10/19/2014 10:39 AM CDT 10/19/2014 12:45 PM CDT Narrative Resulting Agency Comment [facility] [address] ??[facility]ly [facility] [id number] Casper Smith MD LAB - CHEMISTRY CHELI SAAB [facility] ACCOUNT BILL * (ABNORMAL) CBC W AUTO DIFFERENTIAL (10/19/2014 10:39 AM CDT) WBC 4.8 3.4 - 10.8 x10E3/uL [facility] ACCOUNT BILL RBC 4.19 3.77 - 5.28 x10E6/uL [facility] ACCOUNT BILL Hemoglobin 13.6 11.1 - 15.9 g/dL [facility] ACCOUNT BILL Hematocrit 41.6 34.0 - 46.6 % [facility] ACCOUNT BILL MCV 99(H) 79 - 97 fL [facility] ACCOUNT BILL MCH 32.5 26.6 - 33.0 pg [facility] ACCOUNT BILL MCHC 32.7 31.5 - 35.7 g/dL [facility] ACCOUNT BILL RDW 15.2 12.3 - 15.4 % [facility] ACCOUNT BILL Platelet Count 201 150 - 379 x10E3/uL [facility] ACCOUNT BILL Granulocytes % 35 % [facility] ACCOUNT BILL Lymphocytes % 48 % [facility] ACCOUNT BILL Monocytes % 14 % [facility] ACCOUNT BILL Eosinophils % 2 % [facility] ACCOUNT BILL Basophils % 1 % [facility] ACCOUNT BILL Immature Cells NOT NEEDED [facility] ACCOUNT BILL Comment:Ancillary determined the test is not needed Granulocytes Absolute 1.7 1.4 - 7.0 x10E3/uL [facility] ACCOUNT BILL Lymphocytes Absolute 2.3 0.7 - 3.1 x10E3/uL [facility] ACCOUNT BILL Monocytes Absolute 0.7 0.1 - 0.9 x10E3/uL [facility] ACCOUNT BILL Eosinophils Absolute 0.1 0.0 - 0.4 x10E3/uL [facility] ACCOUNT BILL Basophils Absolute 0.0 0.0 - 0.2 x10E3/uL [facility] ACCOUNT BILL Immature Granulocytes 0 % [facility] ACCOUNT BILL Immature Granulocytes Absolute 0.0 0.0 - 0.1 x10E3/uL [facility] ACCOUNT BILL nRBC NOT NEEDED [facility] ACCOUNT BILL Comment:Ancillary determined the test is not needed Comment Hematology NOT NEEDED [facility] ACCOUNT BILL Comment:Ancillary determined the test is not needed Blood specimen (specimen) BLOOD SPECIMEN / Unknown 10/19/2014 10:39 AM CDT 10/19/2014 12:45 PM CDT Narrative Resulting Agency Comment [facility] [place] [address] [facility] ??[facility] [id number] Casper Smith MD LAB - HEMATOLOGY ORD ERABLES [facility] ACCOUNT BILL documented in this encounter Visit Diagnoses Diagnosis Rheumatoid arthritis(714.0) (HCC)- Primary Rheumatoid arthritis Carpal tunnel syndrome, left Carpal tunnel syndrome DJD (degenerative joint disease) of knee Osteoarthrosis, unspecified whether generalized or localized, lower leg Fibromyalgia Mylagia and myositis, unspecified Insomnia Insomnia, unspecified High risk medications (not anticoagulants) long-term use Encounter for long-term (current) use of other medications documented in this encounter Care Teams Skein Mercerizing Machine Operator Relationship Specialty Start Date End Date Tim Altman MD PCP - General 10/18/10 [place] [id number] [place] [phone] Orthopedic Surgery 05/02/11 [place] [address] [place] [address] Rheumatology 08/20/11 documented as of this encounter
--- OUTSIDE RECORDS SUMMARY | 2024-06-17 14:43 | XMS_ITS | Encounter Summary ---
Author Organization [facility] Address [address] [place] [address] [place] [address] Care Team Providers Care Machine Lead Burner Name Role Phone Tim Altman MD Primary Care Provider [phone] Vani Waldrop MD Unavailable [phone] Casper Smith MD Unavailable Unavailable Reason for Visit * Reason Comments Refill Request Encounter Details Date Type Department Care Team (Late st Contact Info) Description 12/20/2014 Refill [facility] - Rheumatology [address] [place] [id number] Casper Smith MD Refill Request Social History Tobacco Use Types Packs/Day Years Used Date Smoking Tobacco: Never Smokeless Tobacco: Never Alcohol Use Standard Drinks/Week Comments No 0 (1 standard drink = 0.6 oz pur e alcohol) Sex and Gender Information Value Date Recorded Sex Assigned at Not on file Gender Identity Not on file Sexual Orientation Not on file documented as of this encounter Plan of Treatment Not on file documented as of this encounter Visit Diagnoses Not on filedocumented in this encounter Care Teams Machine Lead Burner Relationship Specialty Start Date End Date Tim Altman MD PCP - General 10/18/10 [place] [id number] [place] [phone] Orthopedic Surgery 05/02/11 [place] [id number] [place] [address] Rheumatology 08/20/11 documented as of this encounter
--- OUTSIDE RECORDS SUMMARY | 2024-06-17 14:43 | XMS_ITS | Encounter Summary ---
Author Organization [facility] Address [address] [place] [address] [place] [address] Care Team Providers Care Supplier Development Manager Name Role Phone Tim Altman MD Primary Care Provider [phone] Vani Waldrop MD Unavailable [phone] Casper Smith MD Unavailable Unavailable Reason for Visit * Reason Comments Refill Request Encounter Details Date Type Department Care Team (Late st Contact Info) Description 02/26/2014 Refill [facility] - Rheumatology [address] [place] [id number] Casper Smith MD Refill Request Social History [...] on filedocumented in this encounter Care Teams Supplier Development Manager Relationship Specialty Start Date End Date Tim Altman MD PCP - General 10/18/10 [place] [address] [place] [phone] Orthopedic Surgery 05/02/11 [place] [address] [place] [address] Rheumatology 08/20/11 documented as of this encounter
--- OUTSIDE RECORDS SUMMARY | 2024-06-17 14:43 | XMS_ITS | Encounter Summary ---
Author Organization [facility] Address [address] [place] [address] [place] [address] Care Team Providers Care Bar Waiter/Waitress Name Role Phone Tim Altman MD Primary Care Provider [phone] Vani Waldrop MD Unavailable [phone] Casper Smith MD Unavailable Unavailable Reason for Visit * Reason Onset Date Comments Follow-up 04/06/2014 Encounter Details Date Type Department Care Team (Late st Contact Info) Description 04/06/2014 Telephone [facility] - Family Medicine [address] [place] [address] [phone] Casper Smith MD Follow-up Social History Tobacco Use Types Packs/Day Years Used Date Smoking Tobacco: Never Smokeless Tobacco: Never Alcohol Use Standard Drinks/Week Comments No 0 (1 standard drink = 0.6 oz pur e alcohol) Sex and Gender Information Value Date Recorded Sex Assigned at Not on file Gender Identity Not on file Sexual Orientation Not on file documented as of this encounter Miscellaneous Notes * Telephone Encounter - Hannah Edmondson - 04/06/2014 4:00 PM CDT Informed pt of ph # * Telephone Encounter - Yeny Oro MA - 04/06/2014 3:37 PM CDT * Telephone Encounter - Hannah Edmondson - 04/06/2014 2:11 PM CDT Pt is calling back for the ph# to [facility] , she said the ph cut off and she did not get it documented in this encounter Plan of Treatment Not on file documented as of this encounter Visit Diagnoses Not on filedocumented in this encounter Care Teams Bar Waiter/Waitress Relationship Specialty Start Date End Date Tim Altman MD PCP - General 10/18/10 [place] [id number] [place] [phone] Orthopedic Surgery 05/02/11 [place] [address] [place] [phone] Rheumatology 08/20/11 documented as of this encounter
--- OUTSIDE RECORDS SUMMARY | 2024-06-17 14:43 | XMS_ITS | Referral Summary ---
Author Organization [facility] Address [facility] [place] [place] [address] Care Team Providers Care Head Of Partner Development Name Role Phone Tim Altman MD Primary Care Provider Vani Waldrop MD Unavailable [phone] Casper Smith MD Unavailable Unavailable Source Comments [facility],non-owned Affiliates and Associated Physician Practices is amultiple site organization consisting of ambulatory clinics and hospital sitesin [place], [place], [place] and [place]. This disclosure is being madepursuant to the Care Everywhere program and may not contain all information available regarding this patient. Last updated 18.[facility] Allergies Active Allergy Reactions Criticality Noted Date Comments Amitriptyline 10/17/2010 Codeine 10/18/2010 Rosuvastatin 10/17/2010 Fluorescein Swelling 12/24/2010 Other 10/18/2010 Paper tape keftabs Penicillins Rash Low 10/17/2010 Medroxyprogesterone Acetate 10/18/19 11 Sulfa Drugs 10/17/2010 Hydrocodone-Acetaminophen 10/17/2010 Vytorin 10/17/2010 Zinc 10/18/2010 Medications * Be aware that medications may not be up to date on this document. Alwaysverify current medications with the patient. Medication Sig Dispensed Refills Start Date End Date Status ALPRAZolam (XANAX) 0.5 MG tablet Take 0.5 mg by mouth 2 times daily. Active metoprolol tartrate IR (LOPRESSOR) 25 MG tablet Take 25 mg by mouth 2 times daily. Active omeprazole (PRILOSEC) 40 MG capsule Take 40 mg by mouth 2 times daily. Active Cyanocobalamin (B-12) 1000 MCG TBCR Take by mouth daily. Active Calcium Carbonate-Vit D-Min (CALCIUM 1200 PO) Take by mouth daily. Active acetaminophen (TYLENOL) 500 MG tabletIndications:Fi bromyalgia Take 2 Tabs by mouth 3 times daily. Maximum allowable Acetaminophen amount = 4 Grams (4000 mg) / 24 hours. 11/15/2012 Active azaTHIOprine (IMURAN) 50 MG tabletIndications:Rh eumatoid arthritis(714.0) ([facility]) Take 2 Tabs by mouth once daily. 60 Tab 6 07/28/2013 Active meloxicam (MOBIC) 7.5 MG tabletIndications:DJ D (degenerative joint disease) of knee Take 1-2 Tabs by mouth once daily. for 7 days to treat flare ups of pain and inflammation Repeat as needed or call Dr Smith if not better 30 Tab 6 11/02/2013 Active predniSONE (DELTASONE) 20 MG tabletIndications:Rh eumatoid arthritis(714.0) ([facility]) 40mg daily x 2 days, 30mg x 3 days, 20mg x 3 days, 10mg x 3 days and then stop 20 Tab 0 02/08/2014 Active adalimumab (HUMIRA) 40 MG/0.8ML injection Inject 40 mg subcutaneously every 14 days. Pen only Active adalimumab (HUMIRA PEN) 40 MG/0.8ML injection Inject 0.8 mL subcutaneously every 14 days. 2 Pen 11 10/19/2014 Active carbidopa-levodopa CR (SINEMET CR) 50-200 MG tablet TAKE ONE TABLET BY MOUTH TWICE A DAY 60 Tab 5 11/20/2014 Active traMADol (ULTRAM) 50 MG tablet TAKE TWO TABLETS BY MOUTH THREE TIMES DAILY WITH TYLENOL 180 Tab 4 12/14/2014 Active sertraline (ZOLOFT) 100 MG tablet TAKE ONE TABLET BY MOUTH DAILY 30 Tab 10 12/20/2014 Active folic acid (FOLVITE) 1 MG tablet TAKE 2 TABLETS BY MOUTH ONCE A DAY 60 Tab 10 12/20/2014 Active methotrexate 2.5 MG tabletIndications:Rh eumatoid arthritis(714.0) ([facility]),Fibromyalgia,P rimary osteoarthritis of both knees,Insomnia,High risk medications (not anticoagulants) long-term use TAKE 8 TABS BY MOUTH EVERY 7 DAYS 40 Tab 4 02/15/2015 Active gabapentin (NEURONTIN) 600 MG tabletIndications:Rh eumatoid arthritis(714.0) ([facility]),Fibromyalgia,P rimary osteoarthritis of both knees,Insomnia,High risk medications (not anticoagulants) long-term use TAKE ONE TABLET BY MOUTH IN THE MORNING AND TWO IN THE EVENING 90 Tab 9 02/15/2015 Active Active Problems Problem Noted Date Diagnosed Date Rheumatoid arthritis 08/09/2013 Overview (04/22/2015): Daily morning stiffness, polyarticular arthritis, inflammatory fluid [...] injected Biologic agent soon TNF for now Restless legs syndrome (RLS) 05/15/2011 Overview (05/15/2011): 05/15/2011 will start Simenet DJD (degenerative joint disease) of knee 011 Overview (10/18/2010): occasional flare Insomnia 10/18/2010 Fibromyalgia 10/17/2010 Overview (10/17/2010): 10/17/2010 chart abstraction Resolved Problems Problem Noted Date Diagnosed Date Resolved Date PMR (polymyalgia rheumatica) 10/17/2010 09/05/2013 Overview (03/11/2013): Hx of TA biopsy showing mild inflammation on chronic steroids 05/15/2011 flared today incease prednisone Diagnostic ultrasound for causes of bilateral hand pain 03/11/2013 Negative CCP and no erosions on recent US of hands Social History Tobacco Use Types Packs/Day Years Used Date Smoking Tobacco: Never Smokeless Tobacco: Never Alcohol Use Standard Drinks/Week Comments No 0 (1 standard drink = 0.6 oz pur e alcohol) Sex and Gender Information Value Date Recorded Sex Assigned at Not on file Gender Identity Not on file Sexual Orientation Not on file Last Filed Vital Signs Vital Sign Reading Time Taken Comments Blood Pressure 124/80 02/15/2015 10:37 AM CDT Pulse 74 02/15/2015 10:37 AM CDT Temperature 36.6 ??C (97.8 ??F) 11/02/2013 10:13 AM C DT Respiratory Rate 16 11/02/2013 10:13 AM CDT Oxygen Saturation - - Inhaled Oxygen Concentration - - Weight 98.9 kg (218 lb) 02/15/2015 10:37 AM CDT Height 162.6 cm (5' 4 ) 10/19/2014 9:34 AM CDT Body Mass Index 37.42 10/19/2014 9:34 AM CDT Plan of Treatment Not on file Procedures Procedure Name Priority Date/Time Associated Diagnosis Comments DEXA BONE DENSITY 2 SITES Routine 11/23/2014 LIPID PROFILE W TCHOL/HDL Routine 09/30/2013 8:00 PM CDT Lipid screening HEPATITIS C ANTIBODY Routine 05/15/2011 3:16 PM PROTOTYPE MACHINE OPERATOR High risk medications (not anticoagulants) long-term use from Last 3 Months or Most Recently Relevant to Health Maintenance Results * DEXA BONE DENSITY 2 SITES (11/23/2014) Anatomical Region Laterality Modality Other Casper Smith MD DEXA ORDERABLES * (ABNORMAL) LIPID PROFILE W TCHOL/HDL (PO REF LAB) (09/30/2013 8:00 PM CDT) Cholesterol 230(H) 125 - 200 mg/dL [facility] Comment: [facility] Performed at: [facility] [address] [place], [place] ??[id number] MUKUND GILES DO,MPH HDL Cholesterol 84 > OR = 46 mg/dL [facility] Triglycerides 171(H) <150 mg/dL [facility] LDL Calculated 112 <130 mg/dL (calc) [facility] Comment: Desirable range <100 mg/dL for patients with CHD or diabetes and <70 mg/dL for diabetic patients with known heart disease. CHOL/HDLC RATIO 2.7 < OR = 5.0 (calc) [facility] Non HDL Cholesterol 146 mg/dL (calc) [facility] Comment: Target for non-HDL cholesterol is 30 mg/dL higher than LDL cholesterol target. BLOOD SPECIMEN / Unknown 09/30/2013 4:24 AM CDT Casper Smith MD LAB - CHEMISTRY CHELI SAAB [facility] [address] [place] [address] * HEPATITIS C ANTIBODY (05/15/2011 3:16 PM PROTOTYPE MACHINE OPERATOR) Hepatitis C Virus Antibody <0.1 0.0 - 0.9 s/co ratio [facility] INSURANCE BILL Comment: ? Negative: ? < 0.8 ? Indeterminate 0.8 - 0.9 ? Positive: ? > 0.9 ? . ? In order to reduce the incidence of a false positive ? result, the CDC recommends that all s/co ratios ? between 1.0 and 10.9 be confirmed with additional ? RIBA or PCR testing. Blood specimen (specimen) BLOOD SPECIMEN / Unknown 05/15/2011 3:16 PM PROTOTYPE MACHINE OPERATOR 05/15/2011 8:51 PM PROTOTYPE MACHINE OPERATOR Narrative [facility] INSURANCE BILL - 05/16/2011 7:24 AM PROTOTYPE MACHINE OPERATOR A courtesy copy of this report has been sent to [phone]. Resulting Agency Comment [facility] [address] ??[facility] [phone] Casper Smith MD LAB - CHEMISTRY CHELI SAAB [facility] INSURANCE BILL from Last 3 Months or Most Recently Relevant to Health Maintenance Administered Medications Care Teams Head Of Partner Development Relationship Specialty Start Date End Date Tim Altman MD PCP - General 10/18/10 [place] [address] [place] [id number] Orthopedic Surgery 05/02/11 [place] [address] [place] [phone] Rheumatology 08/20/11
--- OUTSIDE RECORDS SUMMARY | 2024-06-17 14:43 | XMS_ITS | Encounter Summary ---
Author Organization [facility] Address [address] [place] [address] [place] [address] Care Team Providers Care Waistband Setter Name Role Phone Tim Altman MD Primary Care Provider [phone] Vani Waldrop MD Unavailable [phone] Casper Smith MD Unavailable Unavailable Encounter Details Date Type Department Care Team (Latest Contact Info) Description 08/23/2020 11:37 AM FAVOR MAKER - 08/23/2020 11:59 PM [facility] Hospital Encounter [facility] Imaging Services - Radiology [address] [place] [id number] Casper Smith MD Discharge Disposition: Home or Self Care Social History Tobacco Use Types Packs/Day Years Used Date Smoking Tobacco: Never Smokeless Tobacco: Never Alcohol Use Standard Drinks/Week Comments No 0 (1 standard drink = 0.6 oz pur e alcohol) Sex and Gender Information Value Date Recorded Sex Assigned at Not on file Gender Identity Not on file Sexual Orientation Not on file documented as of this encounter Medications at Time of Discharge Medication Sig Dispensed Refills Start Date End Date acetaminophen (TYLENOL) 500 MG tabletIndications:Fibrom yalgia Take 2 Tabs by mouth 3 times daily. Maximum allowable Acetaminophen amount = 4 Grams (4000 mg) / 24 hours. 11/15/2012 adalimumab (HUMIRA PEN) 40 MG/0.8ML injection Inject 0.8 mL subcutaneously every 14 days. 2 Pen 11 10/19/2014 adalimumab (HUMIRA) 40 MG/0.8ML injection Inject 40 mg subcutaneously every 14 days. Pen only ALPRAZolam (XANAX) 0.5 MG tablet Take 0.5 mg by mouth 2 times daily. azaTHIOprine (IMURAN) 50 MG tabletIndications: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) ([facility]) Take 2 Tabs by mouth once daily. 60 Tab 6 07/28/2013 Calcium Carbonate-Vit D-Min (CALCIUM 1200 PO) Take by mouth daily. carbidopa-levodopa CR (SINEMET CR) 50-200 MG tablet TAKE ONE TABLET BY MOUTH TWICE A DAY 60 Tab 5 11/20/2014 Cyanocobalamin (B-12) 1000 MCG TBCR Take by mouth daily. folic acid (FOLVITE) 1 MG tablet TAKE 2 TABLETS BY MOUTH ONCE A DAY 60 Tab 10 12/20/2014 gabapentin (NEURONTIN) 600 MG tabletIndications: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) ([facility]),Fibromyalgia,Prima ry osteoarthritis of both knees,Insomnia,High risk medications (not anticoagulants) long-term use TAKE ONE TABLET BY MOUTH IN THE MORNING AND TWO IN THE EVENING 90 Tab 9 02/15/2015 meloxicam (MOBIC) 7.5 MG tabletIndications:DJD (degenerative joint disease) of knee Take 1-2 Tabs by mouth once daily. for 7 days to treat flare ups of pain and inflammation Repeat as needed or call Dr Smith if not better 30 Tab 6 11/02/2013 methotrexate 2.5 MG tabletIndications: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) ([facility]),Fibromyalgia,Prima ry osteoarthritis of both knees,Insomnia,High risk medications (not anticoagulants) long-term use TAKE 8 TABS BY MOUTH EVERY 7 DAYS 40 Tab 4 02/15/2015 metoprolol tartrate IR (LOPRESSOR) 25 MG tablet Take 25 mg by mouth 2 times daily. omeprazole (PRILOSEC) 40 MG capsule Take 40 mg by mouth 2 times daily. 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) ([facility]) 40mg daily x 2 days, 30mg x 3 days, 20mg x 3 days, 10mg x 3 days and then stop 20 Tab 0 02/08/2014 sertraline (ZOLOFT) 100 MG tablet TAKE ONE TABLET BY MOUTH DAILY 30 Tab 10 12/20/2014 traMADol (ULTRAM) 50 MG tablet TAKE TWO TABLETS BY MOUTH THREE TIMES DAILY WITH TYLENOL 180 Tab 4 12/14/2014 documented as of this encounter Plan of Treatment Not on file documented as of this encounter Procedures Procedure Name Priority Date/Time Associated Diagnosis Comments XR KNEE RIGHT 4VW OR MORE Routine 08/23/2020 11:57 AM FAVOR MAKER 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 *Reading Radiologist: Jonathon Abbott on 08/23/2020 at 2:29 PM Narrative 08/23/2020 2:29 PM FAVOR MAKER Right Knee 4 Views INDICATION: Rheumatoid arthritis, arthritis FINDINGS: ??February 06, 2020 comparison Slhi-qm-aovi configuration of the medial femoral tibial compartment with varus deformity of the knee. The medial femoral condyle is subluxed centrally relative to the tibial plateau. Joint fluid volume is minimal. Loose bodies in the popliteal recess. Advanced patellofemoral arthrosis. Procedure Note Jonathon Abbott MD - 08/23/2020 Right Knee 4 Views INDICATION: Rheumatoid arthritis, arthritis FINDINGS: February 06, 2020 comparison [id number] configuration of the medial femoral tibial compartment with varus deformity of the knee. The medial femoral condyle is subluxed centrally relative to the tibial plateau. Joint fluid volume is minimal. Loose bodies in the popliteal recess. Advanced patellofemoral arthrosis. IMPRESSION Grade 4 osteoarthrosis with popliteal recess loose bodies. 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
--- OUTSIDE RECORDS SUMMARY | 2024-06-17 14:43 | XMS_ITS | Clinical Summary ---
Author Organization [facility] Address [facility] [place] [address] Care Team Providers Care Lobby Porter Name Role Phone Tim Altman MD Primary Care Provider [phone] Vani Waldrop MD Unavailable [phone] Casper Smith MD Unavailable Unavailable Source Comments [facility],non-owned Affiliates and Associated Physician Practices is amultiple site organization consisting of ambulatory clinics and hospital sitesin [place], [place], [place] and [place]. This disclosure is being madepursuant to the Care Everywhere program and may not contain all information available regarding this patient. Last updated 18.[facility] Allergies Active Allergy Reactions Criticality Noted [...] azaTHIOprine (IMURAN) 50 MG tabletIndications:Rh eumatoid arthritis(714.0) ([facility]) Take 2 Tabs by mouth once daily. 60 Tab 6 07/28/2013 Active meloxicam (MOBIC) 7.5 MG tabletIndications:DJ D (degenerative joint disease) of knee Take 1-2 Tabs by mouth once daily. for 7 days to treat flare ups of pain and inflammation Repeat as needed or call Dr Smith if not better 30 Tab 6 11/02/2013 Active predniSONE (DELTASONE) 20 MG tabletIndications:Rh eumatoid arthritis(714.0) ([facility]) 40mg daily x 2 days, 30mg x [...] Active methotrexate 2.5 MG tabletIndications:Rh eumatoid arthritis(714.0) ([facility]),Fibromyalgia,P rimary osteoarthritis of both knees,Insomnia,High risk medications (not anticoagulants) long-term use TAKE 8 TABS BY MOUTH EVERY 7 DAYS 40 Tab 4 02/15/2015 Active gabapentin (NEURONTIN) 600 MG tabletIndications:Rh eumatoid arthritis(714.0) ([facility]),Fibromyalgia,P rimary osteoarthritis of both knees,Insomnia,High risk medications [...] no erosions on recent US of hands Family History Medical History Relation Name Comments Arthritis - Osteo Mother CAD (Coronary Artery Disease) Mother Hypertension Mother Relation Name Status Comments Mother Social History Tobacco Use Types Packs/Day Years [...] 10/19/2014 9:34 AM CDT Plan of Treatment Health Maintenance Due Date Last Done Comments COLOGUARD (AGES 45-75) - COLON CA SCREENING 1954 COLON MONITORING 1954 COLONOSCOPY - COLON CA SCREENING 1954 CT COLONOGRAPHY - COLON CA SCREENING 1954 Colorectal Cancer Screening 1954 FIT - COLON CA SCREENING 1954 FLEX SIG - COLON CA SCREENING 1954 MEDICARE AWV ? 12 MONTHS 1954 COVID-19 VACCINE (#1) 08/15/1959 PNEUMOCOCCAL VACCINE 65+ (1 of 2 - PCV) 1960 DTAP/TDAP/TD VACCINES (1 - Tdap) 1973 ZOSTER VACCINE (1 of 2) 1973 Respiratory Syncytial Virus (RSV) Vaccine Pt: or over 60 yrs (1 - Risk 60-74 years 1-dose series) 2014 LIPID TESTING 09/30/2018 09/30/2013 DEPRESSION SCREENING 06/15/2023 INFLUENZA VACCINE (#1) 2024 MAMMOGRAM 08/28/2024 08/28/2022, 12/13, 01/06/2018, Additional history exists HEPATITIS C SCREENING Completed 05/15/2011 BONE DENSITY TESTING Completed 12/18/2020, 01/06/2018, 01/06/2018, Additional history exists HEPATITIS B VACCINE Aged Out No longe r eligible based on patient's age to complete this topic HIB VACCINE Aged Out No longer eligi ble based on patient's age to complete this topic HPV VACCINE Aged Out No longer eligi ble based on patient's age to complete this topic MENINGOCOCCAL VACCINE Aged Out No dulce maria jaquelin eligible based on patient's age to complete this topic Procedures Procedure Name Priority Date/Time Associated Diagnosis Comments DEXA BONE DENSITY 2 SITES Routine 11/23/2014 LIPID PROFILE W TCHOL/HDL Routine 09/30/2013 8:00 PM CDT Lipid screening HEPATITIS C ANTIBODY Routine 05/15/2011 3:16 PM COAL OR ORE CONTROLLER High risk medications (not anticoagulants) long-term use from Last 3 Months or Most Recently Relevant to Health Maintenance Results * DEXA BONE DENSITY 2 SITES (11/23/2014) Anatomical Region Laterality Modality Other Casper Smith MD DEXA ORDERABLES * (ABNORMAL) LIPID PROFILE W TCHOL/HDL (PO REF LAB) (09/30/2013 8:00 PM CDT) Cholesterol 230(H) 125 - 200 mg/dL [facility] Comment: Test Performed at: [facility] [address] ??[phone] MUKUND GILES DO,MPH HDL Cholesterol 84 > [...] Smith MD LAB - CHEMISTRY CHELI [facility] Organization Address City/State/ZIP Co de Phone Number [facility] [address] [place] [address] * HEPATITIS C ANTIBODY (05/15/2011 3:16 PM COAL OR ORE CONTROLLER) Hepatitis C Virus Antibody <0.1 0.0 - [...] BLOOD SPECIMEN / Unknown 05/15/2011 3:16 PM COAL OR ORE CONTROLLER 05/15/2011 8:51 PM COAL OR ORE CONTROLLER Narrative [facility] INSURANCE BILL - 05/16/2011 7:24 AM COAL OR ORE CONTROLLER A courtesy copy of this report has been sent to [phone]. Resulting Agency Comment [facility] [place] [address] [facility] ??[place] [phone] Casper Smith MD LAB - CHEMISTRY ORDE RABLES [facility] INSURANCE BILL from Last 3 Months or Most Recently Relevant to Health Maintenance Care Teams Lobby Porter Relationship Specialty Start Date End Date Tim Altman MD PCP - General 10/18/10 [place] [address] [place] [address] Orthopedic Surgery 05/02/11 [place] [address] [place] [address] Rheumatology 08/20/11
--- OUTSIDE RECORDS SUMMARY | 2024-06-17 14:43 | XMS_ITS | Encounter Summary ---
Author Organization [facility] Address [address] [place] [address] [place] [address] Care Team Providers Care International Marketing Executive Name Role Phone Tim Altman MD Primary Care Provider [phone] Vani Waldrop MD Unavailable [phone] Casper Smith MD Unavailable Unavailable Reason for Visit * Reason Onset Date Comments Question 03/28/2014 Encounter Details Date Type Department Care Team (Late st Contact Info) Description 03/28/2014 Telephone [facility] - Family Medicine [address] [place] [phone] Casper Smith MD Question Social History Tobacco Use Types Packs/Day Years [...] * Telephone Encounter - Hannah Edmondson - 03/28/2014 3:37 PM CDT Informed pt of message * Telephone Encounter - Yeny Oro MA - 03/28/2014 3:25 PM CDT PA for New medication was just started on 03/22/14. These PAs can take several weeks to get approved. * Telephone Encounter - Natalio Roper - 03/28/2014 3:13 PM CDT Pt called back again to follow up on message as she hasn't heard anything. She needs to know beforemedication runs out. * Telephone Encounter - Hannah Edmondson - 03/28/2014 9:18 AM CDT Pt has a question about the new medication she is suppose to be starting and she is due to get her other meds filled and does not want to if she is starting on a new med documented in this encounter Plan of Treatment Not on file documented as of this encounter Visit Diagnoses Not on filedocumented in this encounter Care Teams International Marketing Executive Relationship Specialty Start Date End Date Tim Altman MD PCP - General 10/18/10 [place] [address] [place] [phone] Orthopedic Surgery 05/02/11 [place] [address] [place] [phone] Rheumatology 08/20/11 documented as of this encounter
--- OUTSIDE RECORDS SUMMARY | 2024-06-17 14:43 | XMS_ITS | Encounter Summary ---
Author Organization [facility] Address [facility] [address] Care Team Providers Care Cuff Folder Name Role Phone Tim Altman MD Primary Care Provider [phone] Vani Waldrop MD Unavailable [phone] Casper Smith MD Unavailable Unavailable Reason for Visit * Reason Comments Rheumatoid Arthritis Pain Knee Encounter Details Date Type Department Care Team (Late st Contact Info) Description 03/22/2014 12:30 PM CDT Office Visit [facility] - Rheumatology [address] [place] [address] [phone] Casper Smith MD Rheumatoid arthritis (HCC) (Primary Dx); DJD (degenerative joint disease) of knee; Restless legs syndrome (RLS); Insomnia; High risk medications (not anticoagulants) long-term [...] Sign Reading Time Taken Comments Blood Pressure 126/70 03/22/2014 12:45 PM CDT Pulse 72 03/22/2014 12:45 PM CDT Temperature - - Respiratory Rate - - Oxygen Saturation - - Inhaled Oxygen Concentration - - Weight 103 kg (227 lb) 03/22/2014 12:45 PM CDT Height 165.1 cm (5' 5 ) 03/22/2014 12:45 PM CDT Body Mass Index 37.77 03/22/2014 12:45 PM CDT documented in this encounter Progress Notes * Yeny Oro MA - 03/28/2014 12:58 PM CDTQuick Note: Labs ok no change in treatment plan required Remind patient to please alert me to any problems Inflammation appears to be well controlled * Casper Smith MD - 03/22/2014 1:14 PM CDT Subjective: Lexi Mcneil is a 58 y.o. female referred By Tim Altman for evaluation and treatment of chronic pain Who was seen today for Chief Complaint Patient presents with ??? Rheumatoid Arthritis ??? Pain Knee She was unable to stay on Remicade due to cost and tried Actemra and had a reaction. She will stay on MTX and Azathioprine. CBC CMP CRP Will start a TNF home injection soon. She will keep me updatedwith home she feels. She is having myoclonic jerking at HS and will try a higher dose of gabapentinat HS. So far she has not had a significant anemia. Health Assessment Questionnaire MHAQ: 4.7 Pain: 9.5 Global: 8.5 Rapid 3: 22.7 GI: 5.5 Fatigue: 9 Patient Active Problem List Diagnosis Date Noted [...] to Visit Medication Sig Dispense Refill ??? carbidopa-levodopa CR (SINEMET CR) 50-200 MG tablet TAKE ONE TABLET BY MOUTH TWICE A DAY 60 Tab 6 ??? predniSONE (DELTASONE) 20 MG tablet 40mg daily x 2 days, 30mg x 3 days, 20mg x 3 days, 10mg x 3days and then stop 20 Tab 0 ??? methotrexate 2.5 MG tablet TAKE 8 TABS BY MOUTH EVERY 7 DAYS. 32 Tab 6 ??? folic acid (FOLVITE) 1 MG tablet TAKE 2 TABLETS BY MOUTH ONCE A DAY 60 Tab 11 ??? sertraline (ZOLOFT) 100 MG tablet TAKE ONE TABLET BY MOUTH DAILY 30 Tab 11 ??? traMADol (ULTRAM) 50 MG tablet TAKE TWO TABLETS BY MOUTH THREE TIMES DAILY WITH TYLENOL 180 Tab5 ??? ondansetron, disintegrating, (ZOFRAN ODT) 4 MG tablet Take 4 mg by mouth every 6 hours as needed. Allow tablet to dissolve on the tongue ??? meloxicam (MOBIC) 7.5 MG tablet Take 1-2 Tabs by mouth once daily. for 7 days to treat flare ups of pain and inflammation Repeat as needed or call Dr Smith if not better 30 Tab 6 ??? azaTHIOprine (IMURAN) 50 MG tablet Take 2 Tabs by mouth once daily. 60 Tab 6 ??? gabapentin (NEURONTIN) 600 MG tablet TAKE ONE TABLET BY MOUTH IN THE MORNING TWO IN THE [id number] Tab 10 ??? acetaminophen (TYLENOL) 500 MG tablet Take [...] (CALCIUM 1200 PO) Take by mouth daily. No facility-administered medications prior to visit. Past [...] Coronary Artery Disease Mother Allergies as of 03/22/2014 - reviewed 03/22/2014 Allergen Reaction Noted ??? [...] abuse, addiction, suicide, insomnia, daytime sleepiness, Objective: BP: 126/70 Pulse: 72 Wt: 102.967 kg (227 lb) BMI: 37.77 kg/m2 FiO2: Body mass index is 37.77 kg/(m^2). (negative exam findings are in normal text, positive findings are highlighted below) SJ=2 TJ=5 Nodules=0 GEN: anxious , confused , thin , obese, Cushingoid, ASSISTIVE DEVICE: bedside commode, cane, crutches, prosthesis, splint/brace, walker and wheelchair HEENT: [place] , cerumen , anisocoria, retinal, hemorrhage, thrush, [...] nodes, abn 1st CMC,Flexor tend, Finger Deformity: [place] neck/ Boutonniere/ Mallet finger, Ulnar deviation, Dupuytren's, [...] Epicondyle, Gluteal, Greater Trochanter and Knee Diagnosis: No diagnosis found. Immunization History Administered Date(s) Administered ??? Hyaluronan/Deriv Euflexxa 11/30/2013, 12/07/2013, 12/14/2013 ??? Methylprednisolone 20mg 02/08/2014 ??? Methylprednisolone 40mg 01/23/2011 ??? Methylprednlsolone 80mg 12/09/2011, 11/15/2012, 02/28/2013, 07/04/2013, 08/09/2013, 12/07/2013,12/14/2013 ??? PPD 02/28/2013 ??? Synvisc Inj 12/02/2011, 12/02/2011, 12/09/2011, 12/09/2011, 12/16/2011, 12/16/2011 Plan: No orders of the defined types were placed in this encounter. Plan Zoloft 50-100 mg daily Gabapentin 600-1200 mg nightly Tylenol 1 gm tid Tramadol 100 mg tid Methotrexate 20 mg weekly Azathioprine 100 mg daily Folic acid 1 mg daily Sinemet CR 50/250 bid Meloxicam 15 mg loading dose then 7.5 mg daily for 7 days for flares CBC CMP CRP today Start anti TNF sq agent soon. F/U: Return in about 3 months (around 06/22/2014). Copy Dr Cathie Wilkerson NeuroOpth, Dr Reaves Neurology documented in this encounter Miscellaneous Notes * Addendum Note - Yeny Oro MA - 03/22/2014 1:28 PM CDTAddended by: YENY ORO on: 03/22/2014 01:28 PM Modules accepted: Orders documented in this encounter Plan of Treatment Not on file documented as of this encounter Procedures Procedure Name Priority Date/Time Associated Diagnosis Comments C-REACTIVE PROTEIN Routine 03/22/2014 Rheumatoid Arthritis (Hcc) CBC W AUTO DIFFERENTIAL Routine 03/22/2014 High risk medications (not anticoagulants) long-term use COMPREHENSIVE METABOLIC PANEL Routine 03/22/2014 High risk medications (not anticoagulants) long-term use documented in this encounter Results * C-REACTIVE PROTEIN (03/22/2014) C-Reactive Protein 0.24 <0.80 mg/dL [facility] Comment: Please be advised that patients taking Carboxypenicillins may exhibit falsely decreased C-Reactive Protein levels due to an analytical interference in this assay. Test Performed at: [facility] [id number] [place] [address] ??[phone] MUKUND GILES DO,MPH Blood specimen (specimen) BLOOD SPECIMEN / Unknown 03/22/2014 03/23/2014 6:13 AM CDT Casper Smith MD LAB - CHEMISTRY [facility] Organization Address City/State/ZIP Co de Phone Number [facility] [address] [place] [address] * (ABNORMAL) CBC W AUTO DIFFERENTIAL (03/22/2014) White Blood Cell Count 4.2 3.8 - 10.8 Thousand/u L [facility] RBC 4.07 3.80 - 5.10 Million/uL [facility] Hemoglobin 13.7 11.7 - 15.5 g/dL [facility] Hematocrit 40.4 35.0 - 45.0 % [facility] MCV 99.3 80.0 - 100.0 fL [facility] MCH 33.7(H) 27.0 - 33.0 pg [facility] MCHC 34.0 32.0 - 36.0 g/dL [facility] RDW 14.4 11.0 - 15.0 % [facility] Platelet Count 215 140 - 400 Thousand/u L [facility] Neutrophil Absolute 1550 1500 - 7800 cells/uL [facility] Lymphocytes Absolute 2033 850 - 3900 cells/uL [facility] Absolute Monocytes 538 200 - 950 cells/uL [facility] Eosinophils Absolute 63 15 - 500 cells/uL [facility] Basophils Absolute 17 0 - 200 cells/uL [facility] Granulocytes % 36.9 % [facility] Lymphocytes % 48.4 % [facility] Monocytes % 12.8 % [facility] Eosinophils % 1.5 % [facility] Basophils % 0.4 % [facility] Comment: Test Performed at: [facility] [address] [place] [address] ??[phone] MUKUND GILES DO,MPH Blood specimen (specimen) BLOOD SPECIMEN / Unknown 03/22/2014 03/23/2014 6:13 AM CDT Casper Smith MD LAB - HEMATOLOGY ORD ERABLES [facility] [address] [place] [address] * (ABNORMAL) COMPREHENSIVE METABOLIC PANEL (03/22/2014) Pathologist [facility] Glucose 94 65 - 99 mg/dL [facility] Comment: ? Fasting reference interval BUN 14 7 - 25 mg/dL [facility] Creatinine 0.81 0.50 - 1.05 mg/dL [facility] Comment: For patients >49 years of age, the reference limit for Creatinine is approximately 13% higher for people identified as -[place]. eGFR by MDRD 79 > OR = 60 mL/min/1 .73m2 [facility] eGFR by MDRD 92 > OR = 60 mL/min/1 .73m2 [facility] BUN/Creatinine Ratio NOT APPLICABLE 6 - 22 (calc) [facility] Sodium 139 135 - 146 mmol/L [facility] Potassium 4.4 3.5 - 5.3 mmol/L [facility] Chloride 102 98 - 110 mmol/L [facility] CO2 27 19 - 30 mmol/L [facility] Calcium 10.2 8.6 - 10.4 mg/dL [facility] Protein Total 7.4 6.1 - 8.1 g/dL [facility] Albumin 4.5 3.6 - 5.1 g/dL [facility] Globulin Total 2.9 1.9 - 3.7 g/dL (calc) [facility] Albumin/Globulin Ratio 1.6 1.0 - 2.5 (calc) [facility] Bilirubin Total 0.6 0.2 - 1.2 mg/dL [facility] Alkaline Phosphatase 61 33 - 130 U/L [facility] AST 57(H) 10 - 35 U/L [facility] ALT 21 6 - 29 U/L [facility] Comment: Test Performed at: [facility] [id number] [place] [address] ??[phone] MUKUND GILES DO,MPH Blood specimen (specimen) BLOOD SPECIMEN / Unknown 03/22/2014 03/23/2014 6:13 AM CDT Casper Smith MD LAB - CHEMISTRY CHELI [facility] Organization Address City/State/ZIP Co de Phone Number [facility] [address] [place] [address] documented in this encounter Visit Diagnoses Diagnosis Rheumatoid arthritis(714.0) (HCC)- Primary Rheumatoid arthritis DJD (degenerative joint disease) of knee Osteoarthrosis, unspecified whether generalized or localized, lower leg Restless legs syndrome (RLS) Insomnia Insomnia, unspecified High risk medications (not anticoagulants) long-term use Encounter for long-term (current) use of other medications documented in this encounter Care Teams Cuff Folder Relationship Specialty Start Date End Date Tim Altman MD PCP - General 10/18/10 [place] [address] [address] Orthopedic Surgery 05/02/11 [place] [address] [address] Rheumatology 08/20/11 documented as of this encounter
--- OUTSIDE RECORDS SUMMARY | 2024-06-17 14:43 | XMS_ITS | Encounter Summary ---
Author Organization [facility] Address [address] [place] [address] [place] [address] Care Team Providers Care Stiff Leg Derrick Operator Name Role Phone Tim Altman MD Primary Care Provider [phone] Vani Waldrop MD Unavailable [phone] Casper Smith MD Unavailable Unavailable Reason for Visit * Reason Onset Date Comments MEDICATION REFILL 05/31/2014 Encounter Details Date Type Department Care Team (Late st Contact Info) Description 05/31/2014 Refill [facility] - Rheumatology [address] [place] [id number] Casper Smith MD MEDICATION REFILL Social History Tobacco Use Types Packs/Day Years [...] on filedocumented in this encounter Care Teams Stiff Leg Derrick Operator Relationship Specialty Start Date End Date Tim Altman MD PCP - General 10/18/10 [place] [address] [place] [id number] Orthopedic Surgery 05/02/11 [place] [address] [address] Rheumatology 08/20/11 documented as of this encounter
--- OUTSIDE RECORDS SUMMARY | 2024-06-17 14:43 | XMS_ITS | Encounter Summary ---
Author Organization [facility] Address [address] [place] [address] [place] [address] Care Team Providers Care County Assessor Name Role Phone Tim Altman MD Primary Care Provider [phone] Vani Waldrop MD Unavailable [phone] Casper Smith MD Unavailable Unavailable Reason for Visit * Reason Comments Refill Request Encounter Details Date Type Department Care Team (Late st Contact Info) Description 10/22/2014 Refill [facility] - Rheumatology [address] [place] [phone] Casper Smith MD Refill Request Social History [...] on filedocumented in this encounter Care Teams County Assessor Relationship Specialty Start Date End Date Tim Altman MD PCP - General 10/18/10 [place] [address] [place] [id number] Orthopedic Surgery 05/02/11 [place] [address] [place] [address] Rheumatology 08/20/11 documented as of this encounter
--- OUTSIDE RECORDS SUMMARY | 2024-06-17 14:43 | XMS_ITS | Encounter Summary ---
Author Organization [facility] Address [address] [place] [address] [place] [address] Care Team Providers Care Registrar Assistant Name Role Phone Tim Altman MD Primary Care Provider [phone] Vani Waldrop MD Unavailable [phone] Casper Smith MD Unavailable Unavailable Reason for Visit * Reason Comments Refill Request Encounter Details Date Type Department Care Team (Late st Contact Info) Description 12/14/2014 Refill [facility] - Rheumatology [address] [place] [id number] Casper Smith MD Refill Request Social History [...] on filedocumented in this encounter Care Teams Registrar Assistant Relationship Specialty Start Date End Date Tim Altman MD PCP - General 10/18/10 [place] [address] [place] [phone] Orthopedic Surgery 05/02/11 [place] [address] [place] [address] Rheumatology 08/20/11 documented as of this encounter
--- OUTSIDE RECORDS SUMMARY | 2024-06-17 14:43 | XMS_ITS | Encounter Summary ---
Author Organization [facility] Address [address] [place] [address] [place] [address] Care Team Providers Care Photoengraving Etcher Name Role Phone Tim Altman MD Primary Care Provider Vani Waldrop MD Unavailable [phone] Casper Smith MD Unavailable Unavailable Encounter Details Date Type Department Care Team (Latest Contact Info) Description 12/31/2023 10:49 AM CDT - 12/31/2023 11:59 PM T Hospital Encounter [facility] Services - Radiology [address] [place], [place] [id number] Discharge Disposition: Home or Self Care Social [...] azaTHIOprine (IMURAN) 50 MG tabletIndications: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) ([facility]) Take 2 Tabs by mouth once daily. [...] gabapentin (NEURONTIN) 600 MG tabletIndications: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) ([facility]),Fibromyalgia,Prima ry osteoarthritis of both knees,Insomnia,High risk medications [...] 11/02/2013 methotrexate 2.5 MG tabletIndications: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) ([facility]),Fibromyalgia,Prima ry osteoarthritis of both knees,Insomnia,High risk medications (not anticoagulants) long-term use TAKE 8 TABS BY MOUTH EVERY 7 DAYS 40 Tab 4 02/15/2015 metoprolol tartrate IR (LOPRESSOR) 25 MG tablet Take 25 mg by mouth 2 times daily. omeprazole (PRILOSEC) 40 MG capsule Take 40 mg by mouth 2 times daily. 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) ([facility]) 40mg daily x 2 days, 30mg x [...] Priority Date/Time Associated Diagnosis Comments XR KNEE LEFT 2VW OR LESS STAT 12/31/2023 11:08 AM CDT Rheumatoid arthritis of multiple sites without organ or system involvement with positive rheumatoid factor (HCC) High risk medications (not anticoagulants) long-term use Sleep disorder due to a general medical condition, insomnia type documented in this encounter Results * XR KNEE 1 OR 2 VW LEFT (12/31/2023 11:08 AM CDT) Anatomical Region Laterality Modality Lower Extremity Radiographic Irma ging 12/31/2023 11:1 7 AM CDT Narrative 12/31/2023 11:19 AM CDT PROCEDURE(s): XR KNEE LEFT 2VW OR LESS DATE AND TIME OF EXAM(s): 12/31/2023 11:08 AM INDICATION(s): M05.79: Rheumatoid arthritis with rheumatoid factor of multiple sites without organ or systems involvement (HCC) Z79.899: Other longterm (current) drug therapy G47.01: Insomnia due to medical condition COMPARISON(s): Bilateral knee radiographs dated 02/06/2020. FINDINGS/IMPRESSION: There is an appearance of the lateral tibial plateau which is concerning for chronic fracture deformity, but the possibility of acute fracture deformity cannot be entirely excluded. Severe multi compartmental osteoarthritic degenerative changes of the left knee are seen. There is deformity of the left proximal fibula consistent with chronic fracture deformity. There is a small suprapatellar knee joint effusion. The soft tissues are grossly unremarkable. > Interpreting Provider: Jeromy Garay MD on 12/31/2023 11:19 AM Procedure Note Jeromy Garay MD - 12/31/2023 PROCEDURE(s): XR KNEE LEFT 2VW OR LESS DATE AND TIME OF EXAM(s): 12/31/2023 11:08 AM INDICATION(s): M05.79: Rheumatoid arthritis with rheumatoid factor of multiple sites without organ or systems involvement (HCC) Z79.899: Other termite exterminator (current) drug therapy G47.01: Insomnia due to medical condition COMPARISON(s): Bilateral knee radiographs dated 02/06/2020. FINDINGS/IMPRESSION: There is an appearance of the lateral tibial plateau which is concerning for chronic fracture deformity, but the possibility of acute fracture deformity cannot be entirely excluded. Severe multi compartmental osteoarthritic degenerative changes of the left knee are seen. There is deformity of the left proximal fibula consistent with chronic fracture deformity. There is a small suprapatellar knee joint effusion. The soft tissues are grossly unremarkable. > Interpreting Provider: Jeromy Garay MD on 12/31/2023 11:19 AM Casper Smith MD DIAGNOSTIC IMAGING O RDERABLES documented in this encounter Visit Diagnoses Diagnosis Rheumatoid arthritis of multiple sites without organ or system involvement with positive rheumatoid factor (HCC) High risk medications (not anticoagulants) long-term use Encounter for long-term (current) use of other medications Sleep disorder due to a general medical condition, insomnia type Insomnia due to medical condition classified elsewhere documented in this encounter Care Teams Photoengraving Etcher Relationship Specialty Start Date End Date Tim Altman MD PCP - General 10/18/10 [place] [address] [place] [phone] Orthopedic Surgery 05/02/11 [place] [address] [place] [phone] Rheumatology 08/20/11 documented as of this encounter
--- OUTSIDE RECORDS SUMMARY | 2024-06-17 14:43 | XMS_ITS | Encounter Summary ---
Author Organization [facility] Address [address] [place], [place] [address] [address] Care Team Providers Care Warp Dresser Name Role Phone Tim Altman MD Primary Care Provider [phone] Vani Waldrop MD Unavailable [phone] Casper Smith MD Unavailable Unavailable Reason for Visit * Reason Comments Fibromyalgia Encounter Details Date Type Department Care Team (Latest Contact Info) Description 02/15/2015 10:15 AM CDT Office Visit [facility] - Rheumatology [address] [place] [address] Casper Smith MD Rheumatoid arthritis (Primary Dx); Fibromyalgia; Primary osteoarthritis of both knees; Insomnia; High risk medications (not anticoagulants) long-term [...] Pulse 74 02/15/2015 10:37 AM CDT Temperature - - Respiratory Rate - - Oxygen Saturation - - Inhaled Oxygen Concentration - - Weight 98.9 kg (218 lb) 02/15/2015 10:37 AM CDT Height - - Body Mass Index 37.42 10/19/2014 9:34 AM CDT documented in this encounter Progress Notes * Sita Jj - 02/16/2015 8:35 AM CDTQuick Note: Informed Via [employer] * Casper Smith MD - 02/15/2015 10:56 AM CDT Subjective: Lexi Mcneil is a 59 y.o. female referred By Tim Altman (General) for evaluation and treatment of chronic pain Who was seen today for Chief Complaint Patient presents with ??? Fibromyalgia She has multifactorial pain related to RA and DJD knees She is on MTX azathioprine and Humira with good tolerance. She remains very debilitated and has persistent issues with knee and back pain that remain chronic She had a fal and fractured her elbow preventing a facial injury. CBC CMP CRP today Gabapentin at for sleep. Persistent left elbow pain after fall. Health Assessment Questionnaire MHAQ: 3.3 Pain: 7.5 Global: 7.5 Rapid 3: 18.3 GI: 3 Fatigue: 3.5 Tender Joints: 5 Patient Active Problem List Diagnosis Date Noted [...] to Visit Medication Sig Dispense Refill ??? sertraline (ZOLOFT) 100 MG tablet TAKE ONE TABLET BY MOUTH DAILY 30 Tab 10 ??? folic acid (FOLVITE) 1 MG tablet TAKE 2 TABLETS BY MOUTH ONCE A DAY 60 Tab 10 ??? traMADol (ULTRAM) 50 MG tablet TAKE TWO TABLETS BY MOUTH THREE TIMES DAILY WITH TYLENOL 180 Tab4 ??? carbidopa-levodopa CR (SINEMET CR) 50-200 MG tablet TAKE ONE TABLET BY MOUTH TWICE A DAY 60 Tab5 ??? adalimumab (HUMIRA PEN) 40 MG/0.8ML injection Inject 0.8 mL subcutaneously every 14 days. 2 Pen11 ??? adalimumab (HUMIRA) 40 MG/0.8ML injection Inject 40 mg subcutaneously every 14 days. Pen only ??? predniSONE (DELTASONE) 20 MG tablet 40mg daily x 2 days, 30mg x 3 days, 20mg x 3 days, 10mg x 3days and then stop 20 Tab 0 ??? meloxicam (MOBIC) 7.5 MG tablet Take 1-2 Tabs by mouth once daily. for 7 days to treat flare ups of pain and inflammation Repeat as needed or call Dr Smith if not better 30 Tab 6 ??? azaTHIOprine (IMURAN) 50 MG tablet Take 2 Tabs by mouth once daily. 60 Tab 6 ??? acetaminophen (TYLENOL) 500 MG [...] 1200 PO) Take by mouth daily. ??? methotrexate 2.5 MG tablet TAKE 8 TABS BY MOUTH EVERY 7 DAYS 32 Tab 4 ??? gabapentin (NEURONTIN) 600 MG tablet TAKE ONE TABLET BY MOUTH IN THE MORNING AND TWO IN THE EVENING 90 Tab 9 No facility-administered medications prior to visit. Past [...] Coronary Artery Disease Mother Allergies as of 02/15/2015 - reviewed 02/15/2015 Allergen Reaction Noted ??? Amitriptyline 10/17/2010 ??? [...] addiction, suicide, insomnia, daytime sleepiness, Objective: BP 124/80 mmHg Pulse 74 Wt 98.884 kg (218 lb) FiO2: Body mass index is 37.4 kg/(m^2). (negative exam findings are in normal text, positive findings are highlighted below) SJ=2 TJ=5 Nodules=0 GEN: anxious , confused , thin , obese, Cushingoid, ASSISTIVE DEVICE: bedside commode, cane, crutches, prosthesis, splint/brace, walker and wheelchair HEENT: [place] , cerumen , anisocoria, retinal, hemorrhage, thrush, [...] nodes, abn 1st CMC,Flexor tend, Finger Deformity: [place] neck/ Boutonniere/ Mallet finger, Ulnar deviation, Dupuytren's, Nail abnormality: onycholysis, ingrown nail, Felon, Clubbing, Carpal / Ulnar tunnel: Tinnels / simin's, no Thenar atrophy, no Ulnar atrophy, LEft Elbow tender over left lateral epicondyle NECK: reduced neck ROM with pain, spurling positive, occipital pain numbness tinels, SHOULDER: Joint: Left swelling pain warmth, AC e/t, passive ROM [...] Diagnoses Name Primary? Rheumatoid arthritis Yes ??? Fibromyalgia ??? Primary osteoarthritis of both knees ??? Insomnia ??? High risk medications (not [...] ??? COMPREHENSIVE METABOLIC PANEL ??? C-REACTIVE PROTEIN ??? methotrexate 2.5 MG tablet Sig: TAKE 8 TABS BY MOUTH EVERY 7 DAYS Dispense: 40 Tab Refill: 4 ??? gabapentin (NEURONTIN) 600 MG tablet Sig: TAKE ONE TABLET BY MOUTH IN THE MORNING AND TWO IN THE EVENING Dispense: 90 Tab Refill: 9 Plan Zoloft 50-100 mg daily Gabapentin 600-1200 mg nightly Tylenol 1 gm tid Tramadol 100 mg tid Humira every two weeks Methotrexate 20 mg weekly with Folic acid 1 mg daily Sinemet CR 50/250 bid Meloxicam 15 mg loading dose then 7.5 mg daily for 7 days for flares CBC CMP CRP today F/U: Return in about 3 months (around 05/17/2015). documented in this encounter Miscellaneous Notes * Addendum Note - Samantha Acevedo - 02/15/2015 11:43 AM CDTAddended by: SAMANTHA ACEVEDO on: 02/15/2015 11:43 AM Modules accepted: Orders documented in this encounter Plan of Treatment Not on file documented as of this encounter Procedures Procedure Name Priority Date/Time Associated Diagnosis Comments C-REACTIVE PROTEIN Routine 02/15/2015 11 :49 AM CDT Rheumatoid arthritis Fibromyalgia Primary osteoarthritis of both knees Insomnia High risk medications (not anticoagulants) long-term use CBC W AUTO DIFFERENTIAL Routine 02/15/2015 11:49 AM CDT Rheumatoid arthritis Fibromyalgia Primary osteoarthritis of both knees Insomnia High risk medications (not anticoagulants) long-term use COMPREHENSIVE METABOLIC PANEL Routine 02/15/2015 11:49 AM CDT Rheumatoid arthritis Fibromyalgia Primary osteoarthritis of both knees Insomnia High risk medications (not anticoagulants) long-term use documented in this encounter Results * C-REACTIVE PROTEIN (02/15/2015 11:49 AM CDT) C-Reactive Protein <0.29 <0.30 mg/dL [facility] INSURANCE BILL Blood specimen (specimen) BLOOD SPECIMEN / Unknown 02/15/2015 11:49 AM CDT 02/15/2015 1:42 PM CDT Narrative Resulting Agency Comment [facility] [address] ??[place] [phone] Casper Smith MD LAB - CHEMISTRY CHELI SAAB [facility] INSURANCE BILL * (ABNORMAL) COMPREHENSIVE METABOLIC PANEL (02/15/2015 11:49 AM CDT) Glucose 77 74 - 106 mg/dL [facility] INSURANCE BILL BUN 14 7 - 21 mg/dL [facility] INSURANCE BILL Creatinine 0.70 0.50 - 1.30 mg/dL [facility] INSURANCE BILL eGFR by MDRD >60 >60 mL/min/1.7 3m2 [facility] INSURANCE BILL eGFR by MDRD >60 >60 mL/min/1.7 3m2 [facility] INSURANCE BILL Sodium 140 136 - 145 mmol/L [facility] INSURANCE BILL Potassium 4.3 3.5 - 5.1 mmol/L [facility] INSURANCE BILL Chloride 103 98 - 107 mmol/L [facility] INSURANCE BILL CO2 30 22 - 31 mmol/L [facility] INSURANCE BILL Calcium 9.6 8.5 - 10.1 mg/dL [facility] INSURANCE BILL Protein Total 7.2 6.4 - 8.2 gm/dL [facility] INSURANCE BILL Albumin 4.0 3.4 - 5.0 gm/dL [facility] INSURANCE BILL Bilirubin Total 0.7 0.2 - 1.0 mg/dL [facility] INSURANCE BILL Alkaline Phosphatase 83 38 - 126 U/L [facility] INSURANCE BILL AST 65(H) 5 - 40 U/L [facility] INSURANCE BILL ALT 21 12 - 78 U/L [facility] INSURANCE BILL Blood specimen (specimen) BLOOD SPECIMEN / Unknown 02/15/2015 11:49 AM CDT 02/15/2015 1:42 PM CDT Narrative Resulting Agency Comment [facility] [address] ??[place] [phone] Casper Smith MD LAB - CHEMISTRY CHELI SAAB [facility] INSURANCE BILL * (ABNORMAL) CBC W AUTO DIFFERENTIAL (02/15/2015 11:49 AM CDT) WBC 5.4 4.4 - 10.7 x10E9/L [facility] INSURANCE BILL RBC 3.85 3.80 - 5.20 x10E12/L [facility] INSURANCE BILL Hemoglobin 12.9 12.0 - 15.6 gm/dL [facility] INSURANCE BILL Hematocrit 38.3 35.9 - 45.5 % [facility] INSURANCE BILL MCV 99.5(H) 80.7 - 98.3 fL [facility] INSURANCE BILL MCH 33.5 26.7 - 34.0 pg [facility] INSURANCE BILL MCHC 33.7 30.8 - 35.9 gm/dL [facility] INSURANCE BILL RDW 13.5 12.1 - 14.9 % [facility] INSURANCE BILL Platelet Count 195 153 - 416 x10E9/L [facility] INSURANCE BILL Comment:MPV FL BLOOD (SSM) 1 0.1 fl 9.4-12.9 Granulocytes % 30.6(L) 44.0 - 73.0 % [facility] INSURANCE BILL Lymphocytes % 58.6(H) 20.0 - 43.0 % [facility] INSURANCE BILL Monocytes % 9.5 5.0 - 13.0 % [facility] INSURANCE BILL Eosinophils % 0.9 0.0 - 6.0 % [facility] INSURANCE BILL Basophils % 0.2 0.0 - 2.0 % [facility] INSURANCE BILL Granulocytes Absolute 1.65(L) 2.01 - 7.14 x10E9/L [facility] INSURANCE BILL Lymphocytes Absolute 3.15 1.07 - 3.94 x10E9/L [facility] INSURANCE BILL Monocytes Absolute 0.51 0.26 - 1.07 x10E9/L [facility] INSURANCE BILL Eosinophils Absolute 0.05 0 - 0.47 x10E9/L [facility] INSURANCE BILL Basophils Absolute 0.01 0 - 0.08 x10E9/L [facility] INSURANCE BILL Immature Granulocytes 0.2 0 - 1 % [facility] INSURANCE BILL Immature Granulocytes Absolute 0.01 0.00 - 0.06 x10E9/L [facility] INSURANCE BILL nRBC 0 /100 WBC [facility] INSURANCE BILL Blood specimen (specimen) BLOOD SPECIMEN / Unknown 02/15/2015 11:49 AM CDT 02/15/2015 1:42 PM CDT Narrative Resulting Agency Comment [facility] [address] ??[place] [phone] Casper Smith MD LAB - HEMATOLOGY ORD ERABLES [facility] Organization Address City/State/ZIP Co de Phone Number [facility] INSURANCE BILL documented in this encounter Visit Diagnoses Diagnosis Rheumatoid arthritis- Primary Fibromyalgia Mylagia and myositis, unspecified Primary osteoarthritis of both knees Primary localized osteoarthrosis, lower leg Insomnia Insomnia, unspecified High risk medications (not anticoagulants) long-term use Encounter for long-term (current) use of other medications documented in this encounter Care Teams Warp Dresser Relationship Specialty Start Date End Date Tim Altman MD PCP - General 10/18/10 [place] [address] [place] [address] Orthopedic Surgery 05/02/11 [place] [address] [place] [address] Rheumatology 08/20/11 documented as of this encounter
--- OUTSIDE RECORDS SUMMARY | 2024-06-17 14:43 | XMS_ITS | Encounter Summary ---
Author Organization [facility] Address [address] [place] [address] [place] [address] Care Team Providers Care Deposit Clerk Name Role Phone Tim Altman MD Primary Care Provider Vani Waldrop MD Unavailable [phone] Casper Smith MD Unavailable Unavailable Encounter Details Date Type Department Care Team (Latest Contact Info) Description 03/01/2020 11:32 AM CDT - 03/01/2020 11:59 PM T Hospital Encounter [facility] Imaging Services - Radiology [address] [place] [address] Casper Smith MD Discharge Disposition: Home or [...] azaTHIOprine (IMURAN) 50 MG tabletIndications: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) ([facility]) Take 2 Tabs by mouth once daily. [...] gabapentin (NEURONTIN) 600 MG tabletIndications: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) ([facility]),Fibromyalgia,Prima ry osteoarthritis of both knees,Insomnia,High risk medications [...] 11/02/2013 methotrexate 2.5 MG tabletIndications: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) ([facility]),Fibromyalgia,Prima ry osteoarthritis of both knees,Insomnia,High risk medications (not anticoagulants) long-term use TAKE 8 TABS BY MOUTH EVERY 7 DAYS 40 Tab 4 02/15/2015 metoprolol tartrate IR (LOPRESSOR) 25 MG tablet Take 25 mg by mouth 2 times daily. omeprazole (PRILOSEC) 40 MG capsule Take 40 mg by mouth 2 times daily. 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 *Reading Radiologist: Vandana Lundy on 03/01/2020 at 2:11 PM Narrative 03/01/2020 2:11 PM CDT AP pelvis bilateral hips 2 views each INDICATION: Rheumatoid arthritis, hip pain AP view of the pelvis, 2 views each of the hips are provided. There is moderate bilateral degenerative change of the hip joints with joint space narrowing. No fracture nor destructive lesion nor focal erosion is noted. Procedure Note Vandana Lundy MD - 03/01/2020 AP pelvis bilateral hips 2 views each INDICATION: Rheumatoid arthritis, hip pain AP view of the pelvis, 2 views each of the hips are provided. There is moderate bilateral degenerative change of the hip joints with joint space narrowing. No fracture nor destructive lesion nor focal erosion is noted. IMPRESSION Degenerative change of the hips. 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
--- OUTSIDE RECORDS SUMMARY | 2024-06-17 14:43 | XMS_ITS | Encounter Summary ---
Author Organization [facility] Address [address] [place] [address] [place] [address] Care Team Providers Care Senior Java Architect Name Role Phone Tim Altman MD Primary Care Provider [phone] Vani Waldrop MD Unavailable [phone] Casper Smith MD Unavailable Unavailable Reason for Visit * Reason Comments Rheumatoid Arthritis follow up Upper Extremity Problem left finger pain Encounter Details Date Type Department Care Team (Latest Contact Info) Description 06/22/2014 10:15 AM NURSE LDR Office Visit [facility] - Rheumatology [address] [place], [place] [id number] Casper Smith MD Fibromyalgia (Primary Dx); Rheumatoid arthritis (HCC); DJD (degenerative joint disease) of knee; Trigger finger (acquired); High risk medications (not anticoagulants) long-term use [...] Sign Reading Time Taken Comments Blood Pressure 122/68 06/22/2014 10:47 AM NURSE LDR Pulse 80 06/22/2014 10:47 AM NURSE LDR Temperature - - Respiratory Rate - - Oxygen Saturation - - Inhaled Oxygen Concentration - - Weight 100.4 kg (221 lb 6.4 oz) 015 10:47 AM NURSE LDR Height 162.6 cm (5' 4 ) 06/22/2014 10:4 7 AM NURSE LDR Body Mass Index 38 06/22/2014 10:47 AM NURSE LDR documented in this encounter Progress Notes * Yeny Oro MA - 06/26/2014 4:27 PM CSTQuick Note: Labs are OK No change in plan needed Call us or send a [employer] Message with any problems E LDR * Casper Smith MD - 06/22/2014 11:00 AM CST Subjective: Lexi Mcneil is a 58 y.o. female referred By Tim Altman for evaluation and treatment of chronic pain Who was seen today for Chief Complaint Patient presents with ??? Rheumatoid Arthritis follow up ??? Upper Extremity Problem left finger pain Humira Azathioprine and MTX Non- opiate analgesics for daily pain, gabapentin for sleep and meloxicam for flare ups. DJD knee cortisone PRN I injected the left third flexor tendon Cbc cmp crp Referral to [place] for left arm nodule. She has been on Humira for 3 months and we will stick with it fornow but might consider a change in therapy to improve arthritis control. Daughter flexor tendon stretches and gave her cortisone injection left third flexor tendon sheath Health Assessment Questionnaire MHAQ: 5.3 Pain: 7.5 Global: 8 Rapid 3: 20.8 GI: 1 Fatigue: 9 Patient Active Problem List Diagnosis [...] to Visit Medication Sig Dispense Refill ??? traMADol (ULTRAM) 50 MG tablet TAKE [...] BY MOUTH DAILY 30 Tab 11 ??? ondansetron, disintegrating, (ZOFRAN ODT) 4 MG [...] Coronary Artery Disease Mother Allergies as of 06/22/2014 - reviewed 03/22/2014 Allergen Reaction Noted ??? [...] addiction, suicide, insomnia, daytime sleepiness, Objective: BP: 122/68 Pulse: 80 Wt: 100.426 kg (221 lb 6.4 oz) BMI: 37.98 kg/m2 FiO2: Body mass index is 37.98 kg/(m^2). (negative exam findings are in normal text, positive findings are highlighted below) SJ=2 TJ=5 Nodules=0 GEN: anxious , confused , thin , obese, Cushingoid, ASSISTIVE DEVICE: bedside commode, cane, crutches, prosthesis, splint/brace, walker and wheelchair HEENT: [place] , cerumen , anisocoria, retinal, hemorrhage, thrush, dry mouth, bad teeth, Limited oralaperture, apthous ulcers, salivary gland enlargement right facial [...] nodes, abn 1st CMC,Flexor tend, Finger Deformity: [place] neck/ Boutonniere/ Mallet finger, Ulnar deviation, Dupuytren's, [...] and Knee Diagnosis: Encounter Diagnoses Name Primary? Fibromyalgia Yes ??? Rheumatoid arthritis ??? DJD (degenerative joint disease) of knee ??? Trigger finger (acquired) Comment: left third flexor tendon ??? High risk medications (not anticoagulants) long-term use Immunization History Administered Date(s) Administered ??? Hyaluronan/Deriv Euflexxa 11/30/2013, 12/07/2013, 12/14/2013 ??? Methylprednisolone 20mg 02/08/2014 ??? Methylprednisolone 40mg 01/23/2011 ??? Methylprednlsolone 80mg 12/09/2011, 11/15/2012, 02/28/2013, 07/04/2013, 08/09/2013, 12/07/2013,12/14/2013 ??? PPD 02/28/2013 ??? Synvisc Inj 12/02/2011, 12/02/2011, 12/09/2011, 12/09/2011, 12/16/2011, 12/16/2011 Plan: Orders Placed This Encounter ??? METHYLPREDNISOLONE ACETATE 20 MG INJ ??? CBC W AUTO DIFFERENTIAL ??? COMPREHENSIVE METABOLIC PANEL ??? C-REACTIVE PROTEIN ??? MT INJECT TENDON SHEATH/LIGAMENT ??? methylPREDNISolone Acetate (DEPO-MEDROL) 20 MG/ML injection Si mL by Intra-articular route once for 1 dose. Dispense: 1 mL Refill: 0 Plan Zoloft 50-100 mg daily Gabapentin 600-1200 mg nightly Tylenol 1 gm tid Tramadol 100 mg tid Methotrexate 20 mg weekly Azathioprine 100 mg daily Folic acid 1 mg daily Sinemet CR 50/250 bid Meloxicam 15 mg loading dose then 7.5 mg daily for 7 days for flares CBC CMP CRP today Humira every two weeks Depo 20 left third flexor tendon F/U: Return in about 4 months (around 10/20/2014). Copy Dr Cathie Wilkerson NeuroOpth, Dr Reaves Neurology E LDR documented in this encounter Plan of Treatment Not on file documented as of this encounter Procedures Procedure Name Priority Date/Time Associated Diagnosis Comments C-REACTIVE PROTEIN Routine 06/22/2014 Rheumatoid Arthritis (Hcc) CBC W AUTO DIFFERENTIAL Routine 06/22/2014 High risk medications (not anticoagulants) long-term use COMPREHENSIVE METABOLIC PANEL Routine 06/22/2014 High risk medications (not anticoagulants) long-term use documented in this encounter Results * C-REACTIVE PROTEIN (06/22/2014) Pathologist [facility] C-Reactive Protein <0.10 <0.80 mg/dL [facility] Comment: Please be advised that patients taking Carboxypenicillins may exhibit falsely decreased C-Reactive Protein levels due to an analytical interference in this assay. Test Performed at: [facility] [address] [place], [place] ??[phone] MUKUND GILES DO,MPH Blood specimen (specimen) BLOOD SPECIMEN / Unknown 06/22/2014 06/23/2014 5:05 AM NURSE LDR Casper Smith MD LAB - CHEMISTRY CHELI SAAB Performing Organization Address City/State/ZIP Co in Phone Number [facility] [address] [place] [address] * (ABNORMAL) COMPREHENSIVE METABOLIC PANEL (06/22/2014) Glucose 64(L) 65 - 99 mg/dL [facility] Comment: ? Fasting reference interval BUN 14 7 - 25 mg/dL [facility] Creatinine 0.76 0.50 - 1.05 mg/dL [facility] Comment: For patients >49 years of age, the reference limit for Creatinine is approximately 13% higher for people identified as -[place]. eGFR by MDRD 86 > OR = 60 mL/min/1 .73m2 [facility] eGFR by MDRD 100 > OR = 60 mL/min/1 .73m2 [facility] BUN/Creatinine Ratio NOT APPLICABLE 6 - 22 (calc) [facility] Sodium 140 135 - 146 mmol/L [facility] Potassium 4.3 3.5 - 5.3 mmol/L [facility] Chloride 101 98 - 110 mmol/L [facility] CO2 31(H) 19 - 30 mmol/L [facility] Calcium 10.0 8.6 - 10.4 mg/dL [facility] Protein Total 7.2 6.1 - 8.1 g/dL [facility] Albumin 4.4 3.6 - 5.1 g/dL [facility] Globulin Total 2.8 1.9 - 3.7 g/dL (calc) [facility] Albumin/Globulin Ratio 1.6 1.0 - 2.5 (calc) [facility] Bilirubin Total 0.6 0.2 - 1.2 mg/dL [facility] Alkaline Phosphatase 70 33 - 130 U/L [facility] AST 49(H) 10 - 35 U/L [facility] ALT 15 6 - 29 U/L [facility] Comment: Test Performed at: [facility] [address] [place] [address] ??[phone] MUKUND GILES DO,MPH Blood specimen (specimen) BLOOD SPECIMEN / Unknown 06/22/2014 06/23/2014 5:05 AM NURSE LDR Casper Smith MD LAB - CHEMISTRY ORDE RABLES [facility] [address] [place] [address] * (ABNORMAL) CBC W AUTO DIFFERENTIAL (06/22/2014) White Blood Cell Count 7.0 3.8 - 10.8 Thousand/u L [facility] RBC 4.13 3.80 - 5.10 Million/uL [facility] Hemoglobin 13.6 11.7 - 15.5 g/dL [facility] Hematocrit 41.1 35.0 - 45.0 % [facility] MCV 99.5 80.0 - 100.0 fL [facility] MCH 33.0 27.0 - 33.0 pg [facility] MCHC 33.1 32.0 - 36.0 g/dL [facility] RDW 14.5 11.0 - 15.0 % [facility] Platelet Count 232 140 - 400 Thousand/u L [facility] Neutrophil Absolute 1785 1500 - 7800 cells/uL [facility] Lymphocytes Absolute 4319(H) 850 - 3900 cells/uL [facility] Absolute Monocytes 784 200 - 950 cells/uL [facility] Eosinophils Absolute 77 15 - 500 cells/uL [facility] Basophils Absolute 35 0 - 200 cells/uL [facility] Granulocytes % 25.5 % [facility] Lymphocytes % 61.7 % [facility] Monocytes % 11.2 % [facility] Eosinophils % 1.1 % [facility] Basophils % 0.5 % [facility] Comment: Test Performed at: [facility] ??[phone] MUKUND GILES DO,MPH Blood specimen (specimen) BLOOD SPECIMEN / Unknown 06/22/2014 06/23/2014 5:05 AM NURSE LDR Casper Smith MD LAB - HEMATOLOGY ORD ERABLES Performing Organization Address [facility] [place] Co de Phone Number [facility] [address] [place] [address] documented in this encounter Visit Diagnoses Diagnosis Fibromyalgia- Primary Mylagia and myositis, unspecified Rheumatoid arthritis(714.0) (HCC) Rheumatoid arthritis DJD (degenerative joint disease) of knee Osteoarthrosis, unspecified whether generalized or localized, lower leg Trigger finger (acquired) High risk medications (not anticoagulants) long-term use Encounter for long-term (current) use of other medications documented in this encounter Administered Medications Administered Medications Medication Order MAR Action Action Date Dose Rate Site Methylprednisolone 20mg Intraarticular Given 06/22/2014 20 mg See comments documented in this encounter Care Teams Senior Java Architect Relationship Specialty Start Date End Date Tim Altman MD PCP - General 10/18/10 [place] [address] [place] [address] Orthopedic Surgery 05/02/11 [place] [address] [place] [address] Rheumatology 08/20/11 documented as of this encounter
--- OUTSIDE RECORDS SUMMARY | 2024-06-17 14:43 | XMS_ITS | Encounter Summary ---
Author Organization [facility] Address [address] [place] [address] [place] [address] Care Team Providers Care Chemical Instrumentation Officer Name Role Phone Tim Altman MD Primary Care Provider Vani Waldrop MD Unavailable [phone] Casper Smith MD Unavailable Unavailable Encounter Details Date Type Department Care Team (Latest Contact Info) Description 02/06/2020 11:02 AM CDT - 02/06/2020 11:59 PM T Hospital Encounter [facility] Imaging Services - Radiology [address] [place] [phone] Casper Smith MD Discharge Disposition: Home or [...] azaTHIOprine (IMURAN) 50 MG tabletIndications: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 omeprazole (PRILOSEC) 40 MG capsule Take 40 mg by mouth 2 times daily. 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) ([facility]) 40mg daily x 2 days, 30mg x [...] Name Priority Date/Time Associated Diagnosis Comments XR LUMBAR SPINE 2 OR 3VW Routine 02/06/2020 11:51 AM CDT Low back pain, unspecified back pain laterality, unspecified chronicity, unspecified whether sciatica present documented in this encounter Results * XR LUMBAR SPINE 2 OR 3 VW (02/06/2020 11:51 AM CDT) Anatomical Region Laterality Modality Spine Radiographic Irma ging 02/06/2020 11:5 7 AM CDT Narrative 02/06/2020 11:59 AM CDT 3 VIEWS LUMBAR SPINE Indication: Back pain Findings: There is no acute compression fracture or subluxation. There is no osseous destruction. There is S-shaped thoracolumbar scoliosis with leftward convexity at the thoracolumbar junction and mild rightward convexity in the lower lumbar region. There is diffuse osseous demineralization present throughout the visualized thoracolumbar spine. There is degenerative endplate change, hypertrophic spurring and facet arthropathy throughout the lumbar spine. There is subtle grade 1 anterolisthesis of L4 regards to L5. *Reading Radiologist: Pj Sanchez on 02/06/2020 at 11:59 AM Procedure Note Pj Sanchez MD - 02/06/2020 3 VIEWS LUMBAR SPINE Indication: Back pain Findings: There is no acute compression fracture or subluxation. There is no osseous destruction. There is S-shaped thoracolumbar scoliosis with leftward convexity at the thoracolumbar junction and mild rightward convexity in the lower lumbar region. There is diffuse osseous demineralization present throughout the visualized thoracolumbar spine. There is degenerative endplate change, hypertrophic spurring and facet arthropathy throughout the lumbar spine. There is subtle grade 1 anterolisthesis of L4 regards to L5. *Reading Radiologist: Pj Sanchez on 02/06/2020 at 11:59 AM Casper Smith MD DIAGNOSTIC IMAGING O RDERABLES documented in this encounter Visit Diagnoses Diagnosis Low back pain, unspecified back pain laterality, unspecified chronicity, unspecified whether sciatica present documented in this encounter Care Teams Chemical Instrumentation Officer Relationship Specialty Start Date End Date Tim Altman MD PCP - General 10/18/10 [place] [address] [place] [address] Orthopedic Surgery 05/02/11 [place] [address] [place] [address] Rheumatology 08/20/11 documented as of this encounter
--- OUTSIDE RECORDS SUMMARY | 2024-06-17 14:43 | XMS_ITS | Encounter Summary ---
Author Organization [facility] Address [address] [place] [address] [place] [address] Care Team Providers Care Keycase Assembler Name Role Phone Tim Altman MD Primary Care Provider [phone] Vani Waldrop MD Unavailable [phone] Casper Smith MD Unavailable Unavailable Reason for Visit * Reason Onset Date Comments Medication Issue 04/05/2014 Encounter Details Date Type Department Care Team (Late st Contact Info) Description 04/05/2014 Telephone [facility] - Rheumatology [address] [place] [address] Casper Smith MD Medication Issue Social History Tobacco Use Types Packs/Day Years [...] encounter Miscellaneous Notes * Telephone Encounter - Yeny Oro MA - 04/06/2014 1:13 PM CDT LM for patient regarding approval of Humira & gave her the # to [facility] so shecan set up her home delivery * Telephone Encounter - Natalio Roper - 04/05/2014 1:10 PM CDT Pt notes she received a letter from her insurance co telling her that her Humira was approved for 03/30/14 - 03/30/15. She wants to know what to do next? Please call. documented in this encounter Plan of Treatment Not on file documented as of this encounter Visit Diagnoses Not on filedocumented in this encounter Care Teams Keycase Assembler Relationship Specialty Start Date End Date Tim Altman MD PCP - General 10/18/10 [place] [address] [place] [phone] Orthopedic Surgery 05/02/11 [place] [address] [place] [address] Rheumatology 08/20/11 documented as of this encounter
--- OUTSIDE RECORDS SUMMARY | 2024-06-17 14:43 | XMS_ITS | Encounter Summary ---
Author Organization [facility] Address [address] [place] [address] [place] [address] Care Team Providers Care Virginia Line Attendant Name Role Phone Tim Altman MD Primary Care Provider [phone] Vani Waldrop MD Unavailable [phone] Casper Smith MD Unavailable Unavailable Reason for Visit * Reason Onset Date Comments Medication Request 09/04/2014 Encounter Details Date Type Department Care Team (Late st Contact Info) Description 09/04/2014 Telephone [facility] - Rheumatology [address] [place] [address] Casper Smith MD Medication Request Social History Tobacco Use Types Packs/Day [...] Telephone Encounter - Yeny Oro MA - 09/04/2014 3:01 PM CDT Will be looking for fax * Telephone Encounter - Natalio Roper - 09/04/2014 2:25 PM CDT Tomasa with [facility] is calling to get a script for 1 Humira pen that they will be sendingto pt at no cost for a malfunction error. They will be faxing the request as well. documented in this encounter Plan of Treatment Not on file documented as of this encounter Visit Diagnoses Not on filedocumented in this encounter Care Teams Virginia Line Attendant Relationship Specialty Start Date End Date Tim Altman MD PCP - General 10/18/10 [place] [address] [facility] [address] [place] [address] Orthopedic Surgery 05/02/11 [place] [address] [facility] [address] [place] [address] Rheumatology 08/20/11 documented as of this encounter
--- OUTSIDE RECORDS SUMMARY | 2024-06-17 14:43 | XMS_ITS | Encounter Summary ---
Author Organization [facility] Address [address] [place] [address] [place] [address] Care Team Providers Care Punch Press Operator Name Role Phone Tim Altman MD Primary Care Provider [phone] Vani Waldrop MD Unavailable [phone] Casper Smith MD Unavailable Unavailable Reason for Visit * Reason Comments Refill Request Encounter Details Date Type Department Care Team (Late st Contact Info) Description 01/19/2015 Refill [facility] - Rheumatology [address] [place] [address] Casper Smith MD Refill Request Social History [...] on filedocumented in this encounter Care Teams Punch Press Operator Relationship Specialty Start Date End Date Tim Altman MD PCP - General 10/18/10 [place] [address] [place] [address] Orthopedic Surgery 05/02/11 [place] [address] [place] [address] Rheumatology 08/20/11 documented as of this encounter
--- OUTSIDE RECORDS SUMMARY | 2024-06-17 14:43 | XMS_ITS | Encounter Summary ---
Author Organization [facility] Address [address] [place] [address] [place] [address] Care Team Providers Care Drywall Finisher Foreman Name Role Phone Tim Altman MD Primary Care Provider [phone] Vani Waldrop MD Unavailable [phone] Casper Smith MD Unavailable Unavailable Reason for Visit * Reason Onset Date Comments MEDICATION REFILL 01/19/2015 Encounter Details Date Type Department Care Team (Late st Contact Info) Description 01/19/2015 Refill [facility] - Rheumatology [address] [place] [address] Casper Smith MD MEDICATION REFILL Social History [...] on filedocumented in this encounter Care Teams Drywall Finisher Foreman Relationship Specialty Start Date End Date Tim Altman MD PCP - General 10/18/10 [place] [address] [place] [phone] Orthopedic Surgery 05/02/11 [place] [address] [address] Rheumatology 08/20/11 documented as of this encounter
--- OUTSIDE RECORDS SUMMARY | 2024-06-17 14:43 | XMS_ITS | Encounter Summary ---
Author Organization [facility] Address [address] [place] [address] [place] [address] Care Team Providers Care Sustain Engineer Name Role Phone Tim Altman MD Primary Care Provider [phone] Vani Waldrop MD Unavailable [phone] Casper Smith MD Unavailable Unavailable Encounter Details Date Type Department Care Team (Late st Contact Info) Description 03/22/2014 [facility] Casper Smith MD Social History Tobacco Use Types Packs/Day Years [...] on filedocumented in this encounter Care Teams Sustain Engineer Relationship Specialty Start Date End Date Tim Altman MD PCP - General 10/18/10 [place] [address] [place] [address] Orthopedic Surgery 05/02/11 [place] [address] [place] [address] Rheumatology 08/20/11 documented as of this encounter
--- OUTSIDE RECORDS SUMMARY | 2024-06-17 14:43 | XMS_ITS | Encounter Summary ---
Author Organization [facility] Address [address] [place] [address] [place] [address] Care Team Providers Care Rigging Man Name Role Phone Tim Altman MD Primary Care Provider [phone] Vani Waldrop MD Unavailable [phone] Casper Smith MD Unavailable Unavailable Reason for Visit * Reason Onset Date Comments MEDICATION REFILL 04/26/2014 Encounter Details Date Type Department Care Team (Late st Contact Info) Description 04/26/2014 Telephone [facility] - Family Medicine [address] [place] [phone] Casper Smith MD MEDICATION REFILL Social History [...] encounter Miscellaneous Notes * Telephone Encounter - Virginia Geller - 04/26/2014 2:44 PM CST Informed pt to get medicine from spec pharmacy [facility] * Telephone Encounter - Hannah Edmondson - 04/26/2014 12:55 PM CST lmor to call [facility] * Telephone Encounter - Yeny Oro MA - 04/26/2014 12:32 PM CST Not authorized to get from local pharmacy. Pts Specialty pharmacy is [facility]. That's where her co-pay assistance card is set up. She needs to call them at to set up home delivery. [facility] * Telephone Encounter - Hannah Edmondson - 04/26/2014 9:45 AM CST Pt needs rx for humira 40 mg q 2 wks sent to [facility] , not on med sheet [facility] documented in this encounter Plan of Treatment Not on file documented as of this encounter Visit Diagnoses Not on filedocumented in this encounter Care Teams Rigging Man Relationship Specialty Start Date End Date Tim Altman MD PCP - General 10/18/10 [place] [address] [place] [address] Orthopedic Surgery 05/02/11 [place] [address] [address] [place] [address] Rheumatology 08/20/11 documented as of this encounter
--- OUTSIDE RECORDS SUMMARY | 2024-06-17 14:43 | XMS_ITS | Encounter Summary ---
Author Organization [facility] Address [address] [place] [address] [place] [address] Care Team Providers Care Transplant Rn Name Role Phone Tim Altman MD Primary Care Provider [phone] Vani Waldrop MD Unavailable [phone] Casper Smith MD Unavailable Unavailable Reason for Visit * Reason Comments Refill Request Encounter Details Date Type Department Care Team (Late st Contact Info) Description 08/01/2014 Refill [facility] - Rheumatology [address] [place] [phone] aCsper Smith MD Refill Request Social History Tobacco [...] on filedocumented in this encounter Care Teams Transplant Rn Relationship Specialty Start Date End Date Tim Altman MD PCP - General 10/18/10 [place] [address] [place] [phone] Orthopedic Surgery 05/02/11 [place] [address] [place] [address] Rheumatology 08/20/11 documented as of this encounter
--- OUTSIDE RECORDS SUMMARY | 2024-06-17 14:43 | XMS_ITS | Encounter Summary ---
Author Organization [facility] Address [address] [place] [address] [place] [address] Care Team Providers Care Housekeeping Cleaner Name Role Phone Tim Altman MD Primary Care Provider [phone] Vani Waldrop MD Unavailable [phone] Casper Smith MD Unavailable Unavailable Encounter Details Date Type Department Care Team (Latest Contact Info) Description 02/06/2020 11:00 AM CDT Hospital Encounter [facility] Imaging Services - Radiology [address] [place] [address] Casper Smith MD Discharge Disposition: Home or [...] azaTHIOprine (IMURAN) 50 MG tabletIndications: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) ([facility]) Take 2 Tabs by mouth once [...] gabapentin (NEURONTIN) 600 MG tabletIndications: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 omeprazole (PRILOSEC) 40 MG capsule Take 40 mg by mouth 2 times daily. 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) ([facility]) 40mg daily x 2 days, 30mg [...] Priority Date/Time Associated Diagnosis Comments XR KNEE BILAT 2VW OR LESS Routine 02/06/2020 11:51 AM CDT Left knee pain, unspecified chronicity documented in this encounter Results * XR KNEE BILAT ONE OR TWO VIEWS (02/06/2020 11:51 AM CDT) Anatomical Region Laterality Modality Lower Extremity Radiographic Irma ging 02/06/2020 1:54 PM CDT Narrative 02/06/2020 1:56 PM CDT EXAM: XR KNEE BILAT 2VW OR LESS*[id number] INDICATION: Pain in left knee, pain in right knee COMPARISON: none available FINDINGS: There is relatively severe tricompartmental degenerative change in bilateral knees with joint space narrowing, subchondral sclerosis and hypertrophic spurring. There is no fracture or dislocation. There is no osseous destruction. *Reading Radiologist: Pj Sanchez on 02/06/2020 at 1:56 PM Procedure Note Pj Sanchez MD - 02/06/2020 EXAM: XR KNEE BILAT 2VW OR LESS*[id number] INDICATION: Pain in left knee, pain in right knee COMPARISON: none available FINDINGS: There is relatively severe tricompartmental degenerative change in bilateral knees with joint space narrowing, subchondral sclerosis and hypertrophic spurring. There is no fracture or dislocation. There is no osseous destruction. *Reading Radiologist: Pj Sanchez on 02/06/2020 at 1:56 PM Casper Smith MD DIAGNOSTIC IMAGING O RDERABLES documented in this encounter Visit Diagnoses Diagnosis Left knee pain, unspecified chronicity documented in this encounter Care Teams Housekeeping Cleaner Relationship Specialty Start Date End Date Tim Altman MD PCP - General 10/18/10 [place] [address] [address] Orthopedic Surgery 05/02/11 [place] [address] [place] [address] Rheumatology 08/20/11 documented as of this encounter
--- OUTSIDE RECORDS SUMMARY | 2024-06-17 14:43 | XMS_ITS | Encounter Summary ---
Author Organization [facility] Address [facility] [place] [place] [address] Care Team Providers Care Animal Groomer Name Role Phone Tim Altman MD Primary Care Provider [phone] Vani Waldrop MD Unavailable [phone] Casper Smith MD Unavailable Unavailable Reason for Visit * Reason Comments Refill Request Encounter Details Date Type Department Care Team (Late st Contact Info) Description 04/26/2014 Refill [facility] Medical [facility] - Family Medicine [address] [place] [address] Casper Smith MD Refill Request Social History [...] on filedocumented in this encounter Care Teams Animal Groomer Relationship Specialty Start Date End Date Tim Altman MD PCP - General 10/18/10 [place] [address] [place] [address] Orthopedic Surgery 05/02/11 [place] [address] [place] [address] Rheumatology 08/20/11 documented as of this encounter
--- OUTSIDE RECORDS SUMMARY | 2024-06-17 14:43 | XMS_ITS | Encounter Summary ---
Author Organization [facility] Address [address] [place] [address] [place] [address] Care Team Providers Care Lottery Clerk Name Role Phone Tim Altman MD Primary Care Provider [phone] Vani Waldrop MD Unavailable [phone] Casper Smith MD Unavailable Unavailable Reason for Visit * Reason Onset Date Comments MEDICATION REFILL 10/19/2014 Encounter Details Date Type Department Care Team (Late st Contact Info) Description 10/19/2014 Refill [facility] - Rheumatology [address] [place] [phone] Casper Smith MD MEDICATION REFILL Social History [...] on filedocumented in this encounter Care Teams Lottery Clerk Relationship Specialty Start Date End Date Tim Altman MD PCP - General 10/18/10 [place] [address] [place] [address] Orthopedic Surgery 05/02/11 [place] [address] [address] Rheumatology 08/20/11 documented as of this encounter
--- OUTSIDE RECORDS SUMMARY | 2024-06-17 14:43 | XMS_ITS | Encounter Summary ---
Author Organization [facility] Address [address] [place] [address] [place] [address] Care Team Providers Care Material Man Name Role Phone Tim Altman MD Primary Care Provider Vani Waldrop MD Unavailable [phone] Casper Smith MD Unavailable Unavailable Encounter Details Date Type Department Care Team (Latest Contact Info) Description 02/06/2020 11:01 AM CDT Hospital Encounter [facility] Imaging Services - Radiology [address] [place] [address] Casper Smith MD Discharge Disposition: Home or [...] azaTHIOprine (IMURAN) 50 MG tabletIndications: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),Fibromyalgia,Prima ry osteoarthritis of both knees,Insomnia,High risk medications (not anticoagulants) long-term use TAKE 8 TABS BY MOUTH EVERY 7 DAYS 40 Tab 4 02/15/2015 metoprolol tartrate IR (LOPRESSOR) 25 MG tablet Take 25 mg by mouth 2 times daily. omeprazole (PRILOSEC) 40 MG capsule Take 40 mg by mouth 2 times daily. 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) 40mg daily x 2 days, [...] Name Priority Date/Time Associated Diagnosis Comments XR RIBS LEFT 2VW Routine 02/06/2020 11:5 2 AM CDT Rib pain on left side documented in this encounter Results * XR RIBS UNILATERAL 2 VW LEFT (02/06/2020 11:52 AM CDT) Anatomical Region Laterality Modality Chest Radiographic Irma ging 02/06/2020 12:5 3 PM CDT Impressions 02/06/2020 12:59 PM CDT No fracture. *Reading Radiologist: Vandana Lundy on 02/06/2020 at 12:59 PM Narrative 02/06/2020 12:59 PM CDT Left RIBS 2 views unilateral INDICATION: Chest pain rib pain 2 views of the left ribs are provided. There is no fracture. There is no destructive lesion. No pneumothorax or hemothorax is noted. Procedure Note Vandana Lundy MD - 02/06/2020 Left RIBS 2 views unilateral INDICATION: Chest pain rib pain 2 views of the left ribs are provided. There is no fracture. There is no destructive lesion. No pneumothorax or hemothorax is noted. IMPRESSION No fracture. *Reading Radiologist: Vandana Lundy on 02/06/2020 at 12:59 PM Casper Smith MD DIAGNOSTIC IMAGING O RDERABLES documented in this encounter Visit Diagnoses Diagnosis Rib pain on left side Chest pain, unspecified documented in this encounter Care Teams Material Man Relationship Specialty Start Date End Date Tim Altman MD PCP - General 10/18/10 [place] [address] [place] [address] Orthopedic Surgery 05/02/11 [place] [address] [place] [address] Rheumatology 08/20/11 documented as of this encounter
--- OUTSIDE RECORDS SUMMARY | 2024-06-17 14:43 | XMS_ITS | Encounter Summary ---
Author Organization [facility] Address [address] [place] [address] [place] [address] Care Team Providers Care First Front Ventilator Name Role Phone Tim Altman MD Primary Care Provider [phone] Vani Waldrop MD Unavailable [phone] Casper Smith MD Unavailable Unavailable Reason for Visit * Reason Comments Refill Request Encounter Details Date Type Department Care Team (Late st Contact Info) Description 11/19/2014 Refill [facility] - Rheumatology [address] [place] [address] Casper Smith MD Refill Request Social History [...] on filedocumented in this encounter Care Teams First Front Ventilator Relationship Specialty Start Date End Date Tim Altman MD PCP - General 10/18/10 [place] [address] [place] [phone] Orthopedic Surgery 05/02/11 [place] [address] [place] [address] Rheumatology 08/20/11 documented as of this encounter
--- OUTSIDE RECORDS SUMMARY | 2024-06-17 14:43 | XMS_ITS | Encounter Summary ---
Author Organization [facility] Address [address] [place], [place] [address] [address] Care Team Providers Care Trimming Cutter Name Role Phone Tim Altman MD Primary Care Provider Vani Waldrop MD Unavailable [phone] Casper Smith MD Unavailable Unavailable Encounter Details Date Type Department Care Team (Latest Contact Info) Description 02/25/2018 12:40 PM CDT - 02/25/2018 11:59 PM CDT Hospital Encounter [facility] Imaging Services - Radiology [address] [place] [id number] Giovani Garg MD [address] [place] [address] Discharge Disposition: Home or Self Care Social [...] azaTHIOprine (IMURAN) 50 MG tabletIndications: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) ([facility]) Take 2 Tabs by mouth once daily. [...] gabapentin (NEURONTIN) 600 MG tabletIndications: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) ([facility]),Fibromyalgia,Prima ry osteoarthritis of both knees,Insomnia,High risk medications [...] 11/02/2013 methotrexate 2.5 MG tabletIndications: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) ([facility]),Fibromyalgia,Prima ry osteoarthritis of both knees,Insomnia,High risk medications (not anticoagulants) long-term use TAKE 8 TABS BY MOUTH EVERY 7 DAYS 40 Tab 4 02/15/2015 metoprolol tartrate IR (LOPRESSOR) 25 MG tablet Take 25 mg by mouth 2 times daily. omeprazole (PRILOSEC) 40 MG capsule Take 40 mg by mouth 2 times daily. 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) ([facility]) 40mg daily x 2 days, 30mg x [...] XR PELVIS W BILAT HIP 2VW Routine 02/25/2018 12:52 PM CDT Rheumatoid arthritis with rheumatoid factor of multiple sites without organ or systems involvement (HCC) Sacroiliac inflammation (HCC) documented in this encounter Results * XR HIPS BILATERAL 2 VW W AP PELVIS (02/25/2018 12:52 PM CDT) Anatomical Region Laterality Modality Pelvis, Lower Extremity Radiogra phic Imaging 02/25/2018 2:34 PM CDT Narrative 02/25/2018 2:36 PM CDT EXAM: XR PELVIS W BILAT HIP 2VW*[id number] INDICATION: Rheumatoid arthritis with rheumatoid factor of multiple sites without organ or systems involvement, pelvic pain, bilateral hip pain COMPARISON: none available FINDINGS: AP pelvis shows no fracture, dislocation or osseous destruction. Sacroiliac joints are intact. 2 views right hip shows joint space narrowing and acetabular subchondral sclerosis with hypertrophic spurring. There is no fracture, dislocation or osseous destruction. 2 views left hip shows joint space narrowing and acetabular subchondral sclerosis with hypertrophic spurring. There is no fracture, dislocation or osseous destruction. Reading Radiologist: Pj Sanchez MD on 02/25/2018 at 2:36 PM Procedure Note Pj Sanchez MD - 02/25/2018 EXAM: XR PELVIS W BILAT HIP 2VW*[id number] INDICATION: Rheumatoid arthritis with rheumatoid factor of multiple sites without organ or systems involvement, pelvic pain, bilateral hip pain COMPARISON: none available FINDINGS: AP pelvis shows no fracture, dislocation or osseous destruction. Sacroiliac joints are intact. 2 views right hip shows joint space narrowing and acetabular subchondral sclerosis with hypertrophic spurring. There is no fracture, dislocation or osseous destruction. 2 views left hip shows joint space narrowing and acetabular subchondral sclerosis with hypertrophic spurring. There is no fracture, dislocation or osseous destruction. Reading Radiologist: Pj Sanchez MD on 02/25/2018 at 2:36 PM Casper Smith MD DIAGNOSTIC IMAGING O RDERABLES documented in this encounter Visit Diagnoses Diagnosis Rheumatoid arthritis with rheumatoid factor of multiple sites without organ or systems involvement (HCC) Sacroiliac inflammation (HCC) Sacroiliitis, not elsewhere classified documented in this encounter Care Teams Trimming Cutter Relationship Specialty Start Date End Date Tim Altman MD PCP - General 10/18/10 [place] [id number] [place] [id number] Orthopedic Surgery 05/02/11 [place] [id number] [place] [phone] Rheumatology 08/20/11 documented as of this encounter
--- OUTSIDE RECORDS SUMMARY | 2024-06-17 14:43 | XMS_ITS | Patient Health Summary ---
Author Organization [facility] Address [address] [place] [address] Care Team Providers Care It Software Engineer Name Role Phone Tim Altman MD Primary Care Provider Vani Waldrop MD Unavailable [phone] Casper Smith MD Unavailable Unavailable Note from [facility],non-owned Affiliates and Associated Physician Practices is amultiple site organization consisting of ambulatory clinics and hospital sitesin [place], [place], [place] and [place]. This disclosure is being madepursuant to the Care Everywhere program and may not contain all information available regarding this patient. Last updated 18.[facility] Allergies * Amitriptyline * Codeine * Rosuvastatin * Fluorescein(Swelling) * Other(Paper tape, keftabs) * Penicillins(Rash) -Low Criticality * Medroxyprogesterone Acetate * Sulfa Drugs * Hydrocodone-Acetaminophen * Vytorin * Zinc Medications * Be aware that medications may not be up to date on this document. Alwaysverify current medications with the patient. * ALPRAZolam (XANAX) 0.5 MG tablet Take 0.5 mg by mouth 2 times daily. * metoprolol tartrate IR (LOPRESSOR) 25 MG tablet Take 25 mg by mouth 2 times daily. * omeprazole (PRILOSEC) 40 MG capsule Take 40 mg by mouth 2 times daily. * Cyanocobalamin (B-12) 1000 MCG TBCR Take by mouth daily. * Calcium Carbonate-Vit D-Min (CALCIUM 1200 PO) Take by mouth daily. * acetaminophen (TYLENOL) 500 MG tablet(Started 11/15/2012) Take 2 Tabs by mouth 3 times daily. Maximum allowable Acetaminophen amount = 4 Grams (4000 mg) / 24hours. * azaTHIOprine (IMURAN) 50 MG tablet(Started 07/28/2013) Take 2 Tabs by mouth once daily. 6 refills left * meloxicam (MOBIC) 7.5 MG tablet(Started 11/02/2013) Take 1-2 Tabs by mouth once daily. for 7 days to treat flare ups of pain and inflammation Repeat asneeded or call Dr Smith if not better 6 refills left * predniSONE (DELTASONE) 20 MG tablet(Started 02/08/2014) 40mg daily x 2 days, 30mg x 3 days, 20mg x 3 days, 10mg x 3 days and then stop * adalimumab (HUMIRA) 40 MG/0.8ML injection Inject 40 mg subcutaneously every 14 days. Pen only * adalimumab (HUMIRA PEN) 40 MG/0.8ML injection(Started 10/19/2014) Inject 0.8 mL subcutaneously every 14 days. 11 refills left * carbidopa-levodopa CR (SINEMET CR) 50-200 MG tablet(Started 11/20/2014) TAKE ONE TABLET BY MOUTH TWICE A DAY 5 refills left * traMADol (ULTRAM) 50 MG tablet(Started 12/14/2014) TAKE TWO TABLETS BY MOUTH THREE TIMES DAILY WITH TYLENOL 4 refills left * sertraline (ZOLOFT) 100 MG tablet(Started 12/20/2014) TAKE ONE TABLET BY MOUTH DAILY 10 refills left * folic acid (FOLVITE) 1 MG tablet(Started 12/20/2014) TAKE 2 TABLETS BY MOUTH ONCE A DAY 10 refills left * methotrexate 2.5 MG tablet(Started 02/15/2015) TAKE 8 TABS BY MOUTH EVERY 7 DAYS 4 refills left * gabapentin (NEURONTIN) 600 MG tablet(Started 02/15/2015) TAKE ONE TABLET BY MOUTH IN THE MORNING AND TWO IN THE EVENING 9 refills left Active Problems Problem Noted Date Diagnosed Date Rheumatoid arthritis 08/09/2013 Restless legs syndrome (RLS) 05/15/2011 DJD (degenerative joint disease) of knee 011 Insomnia 10/18/2010 Fibromyalgia 10/17/2010 Resolved Problems Problem Noted Date Diagnosed Date Resolved Date PMR (polymyalgia rheumatica) 10/17/2010 09/05/2013 Social History Tobacco Use Types Packs/Day Years [...] Mass Index 37.42 10/19/2014 9:34 AM CDT Procedures * XR KNEE LEFT 2VW OR LESS(Performed 12/31/2023) Performed for Rheumatoid arthritis of multiple sites without organ or system involvement with positive rheumatoid factor (HCC), High risk medications (not anticoagulants) long-term use, Sleep disorder due to a general medical condition, insomnia type * XR KNEE RIGHT 4VW OR MORE(Performed 08/23/2020) Performed for Rheu arthritis w rheu factor mult site w/o org/sys involv (HCC), Arthritis of both knees, Insomnia due to medical condition, Acute back pain with sciatica, left * XR PELVIS W BILAT HIP 2VW(Performed 03/01/2020) Performed for Rheu arthritis w rheu factor mult site w/o org/sys involv (HCC) * XR RIBS LEFT 2VW(Performed 02/06/2020) Performed for Rib pain on left side * XR LUMBAR SPINE 2 OR 3VW(Performed 02/06/2020) Performed for Low back pain, unspecified back pain laterality, unspecified chronicity, unspecified whether sciatica present * XR KNEE BILAT 2VW OR LESS(Performed 02/06/2020) Performed for Left knee pain, unspecified chronicity * XR PELVIS W BILAT HIP 2VW(Performed 02/25/2018) Performed for Rheumatoid arthritis with rheumatoid factor of multiple sites without organ or systems involvement (HCC), Sacroiliac inflammation (HCC) * C-REACTIVE PROTEIN(Performed 02/15/2015) Performed for Rheumatoid arthritis, Fibromyalgia, Primary osteoarthritis of both knees, Insomnia, High risk medications (not anticoagulants) long-term use * COMPREHENSIVE METABOLIC PANEL(Performed 02/15/2015) Performed for Rheumatoid arthritis, Fibromyalgia, Primary osteoarthritis of both knees, Insomnia, High risk medications (not anticoagulants) long-term use * CBC W AUTO DIFFERENTIAL(Performed 02/15/2015) Performed for Rheumatoid arthritis, Fibromyalgia, Primary osteoarthritis of both knees, Insomnia, High risk medications (not anticoagulants) long-term use * DEXA BONE DENSITY 2 SITES(Performed 11/23/2014) * C-REACTIVE PROTEIN(Performed 10/19/2014) Performed for Rheumatoid arthritis(714.0) ([facility]) * COMPREHENSIVE METABOLIC PANEL(Performed 10/19/2014) Performed for High risk medications (not anticoagulants) long-term use * CBC W AUTO DIFFERENTIAL(Performed 10/19/2014) Performed for High risk medications (not anticoagulants) long-term use * C-REACTIVE PROTEIN(Performed 06/22/2014) Performed for Rheumatoid Arthritis (Hcc) * COMPREHENSIVE METABOLIC PANEL(Performed 06/22/2014) Performed for High risk medications (not anticoagulants) long-term use * CBC W AUTO DIFFERENTIAL(Performed 06/22/2014) Performed for High risk medications (not anticoagulants) long-term use * C-REACTIVE PROTEIN(Performed 03/22/2014) Performed for Rheumatoid Arthritis (Hcc) * CBC W AUTO DIFFERENTIAL(Performed 03/22/2014) Performed for High risk medications (not anticoagulants) long-term use * COMPREHENSIVE METABOLIC PANEL(Performed 03/22/2014) Performed for High risk medications (not anticoagulants) long-term use * US EXTREMITY NON VASCULAR RIGHT(Performed 02/09/2014) Performed for Hand pain, right * REF LAB-REFLEX TEST IN [facility](Performed 09/30/2013) * LIPID PROFILE W TCHOL/HDL(Performed 09/30/2013) Performed for Lipid screening * COMPREHENSIVE METABOLIC PANEL(Performed 09/30/2013) Performed for Encounter for long-term (current) use of other medications * CBC W AUTO DIFFERENTIAL(Performed 09/30/2013) Performed for Encounter for long-term (current) use of other medications * CYCLIC CITRULLINATED PEPTIDE(CCP) AB IGG(Performed 07/05/2013) * C-REACTIVE PROTEIN(Performed 07/05/2013) Performed for PMR (polymyalgia rheumatica) ([facility]) * RHEUMATOID FACTOR BLOOD QUANTITATIVE(Performed 07/05/2013) Performed for Hand pain * COMPREHENSIVE METABOLIC PANEL(Performed 07/05/2013) Performed for High risk medications (not anticoagulants) long-term use * CBC W AUTO DIFFERENTIAL(Performed 07/05/2013) Performed for High risk medications (not anticoagulants) long-term use * XR KNEE RIGHT 2VW OR LESS(Performed 07/04/2013) Performed for DJD (degenerative joint disease) of knee * COMPREHENSIVE METABOLIC PANEL(Performed 03/28/2013) Performed for Fibromyalgia, PMR (polymyalgia rheumatica) ([facility]) * CBC W AUTO DIFFERENTIAL(Performed 03/28/2013) Performed for Fibromyalgia, PMR (polymyalgia rheumatica) ([facility]) * LAB RESULTS ORDER(Performed 03/02/2013) * COMPREHENSIVE METABOLIC PANEL(Performed 02/28/2013) Performed for High risk medications (not anticoagulants) long-term use * CBC W AUTO DIFFERENTIAL(Performed 02/28/2013) Performed for High risk medications (not anticoagulants) long-term use * C-REACTIVE PROTEIN(Performed 02/28/2013) Performed for PMR (polymyalgia rheumatica) ([facility]) * US EXTREMITY NON VASCULAR RIGHT(Performed 11/16/2012) Performed for Polyarthritis * US EXTREMITY LEFT COMP JOINT(Performed 11/16/2012) Performed for Polyarthritis * ACETYLCHOLINE RECEPTOR ANTIBODY PANEL(Performed 11/15/2012) Performed for Diplopia * CYCLIC CITRUL PEPTIDE ANTIBODY IGG/IGA (CCP)(Performed 11/15/2012) Performed for Polyarthritis * C-REACTIVE PROTEIN(Performed 11/15/2012) Performed for Polyarthritis * COMPREHENSIVE METABOLIC PANEL(Performed 11/15/2012) Performed for Polyarthritis * CBC W AUTO DIFFERENTIAL(Performed 11/15/2012) Performed for Polyarthritis * CBC W AUTO DIFFERENTIAL(Performed 06/16/2012) Performed for High risk medications (not anticoagulants) long-term use * COMPREHENSIVE METABOLIC PANEL(Performed 06/16/2012) Performed for High risk medications (not anticoagulants) long-term use * C-REACTIVE PROTEIN(Performed 06/16/2012) Performed for PMR (polymyalgia rheumatica) ([facility]) * C-REACTIVE PROTEIN(Performed 12/16/2011) Performed for PMR (polymyalgia rheumatica) ([facility]) * HEPATIC FUNCTION PANEL(Performed 12/16/2011) Performed for PMR (polymyalgia rheumatica) (HCC) * CBC W AUTO DIFFERENTIAL(Performed 12/16/2011) Performed for PMR (polymyalgia rheumatica) (HCC) * C-REACTIVE PROTEIN(Performed 08/21/2011) Performed for PMR (polymyalgia rheumatica) (HCC) * COMPREHENSIVE METABOLIC PANEL(Performed 08/21/2011) Performed for High risk medications (not anticoagulants) long-term use * CBC W AUTO DIFFERENTIAL(Performed 08/21/2011) Performed for High risk medications (not anticoagulants) long-term use * US EXTREMITY LEFT COMP JOINT(Performed 05/19/2011) Performed for Hand pain * US EXTREMITY NON VASCULAR RIGHT(Performed 05/19/2011) Performed for Hand pain * HEPATITIS C ANTIBODY(Performed 05/15/2011) Performed for High risk medications (not anticoagulants) long-term use * HEPATITIS B SURFACE ANTIGEN W RFLX CONFIRMATION(Performed 05/15/2011) Performed for High risk medications (not anticoagulants) long-term use * C-REACTIVE PROTEIN(Performed 05/15/2011) Performed for PMR (polymyalgia rheumatica) (HCC) * COMPREHENSIVE METABOLIC PANEL(Performed 05/15/2011) Performed for High risk medications (not anticoagulants) long-term use * CBC W AUTO DIFFERENTIAL(Performed 05/15/2011) Performed for High risk medications (not anticoagulants) long-term use * ERYTHROCYTE SEDIMENTATION RATE(Performed 05/15/2011) Performed for PMR (polymyalgia rheumatica) (HCC) * XR CERVICAL SPINE 2 OR 3VW(Performed 01/23/2011) Performed for Numbness and tingling * XR KNEE LEFT 2VW OR LESS(Performed 01/23/2011) Performed for Knee pain * C-REACTIVE PROTEIN(Performed 01/23/2011) Performed for Numbness and tingling, Knee pain, Toe pain, DJD (degenerative joint disease) of knee,Fibromyalgia * ERYTHROCYTE SEDIMENTATION RATE(Performed 01/23/2011) Performed for Numbness and tingling, Knee pain, Toe pain, DJD (degenerative joint disease) of knee,Fibromyalgia * CANDIDA STAINING PATTERNS REFLEXED(Performed 10/18/2010) Performed for PMR (polymyalgia rheumatica) (HCC) * ESTHELA BLOOD SCREEN W/REFLEX TITER(Performed 10/18/2010) Performed for PMR (polymyalgia rheumatica) (HCC) * TSH(Performed 10/18/2010) Performed for PMR (polymyalgia rheumatica) ([facility]) * RHEUMATOID FACTOR BLOOD QUANTITATIVE(Performed 10/18/2010) Performed for PMR (polymyalgia rheumatica) (HCC) * C-REACTIVE PROTEIN(Performed 10/18/2010) Performed for PMR (polymyalgia rheumatica) (HCC) * COMPREHENSIVE METABOLIC PANEL(Performed 10/18/2010) Performed for PMR (polymyalgia rheumatica) (HCC) * CBC W AUTO DIFFERENTIAL(Performed 10/18/2010) Performed for PMR (polymyalgia rheumatica) ([facility]) Results * XR KNEE 1 OR 2 VW LEFT (12/31/2023 11:08 AM CDT) Only the most recent of2 resultswithin the time period is included. Anatomical Region Laterality Modality Lower Extremity Radiographic Irma ging 12/31/2023 11:1 7 AM CDT Narrative 12/31/2023 11:19 AM CDT PROCEDURE(s): XR KNEE LEFT 2VW OR LESS DATE AND TIME OF EXAM(s): 12/31/2023 11:08 AM INDICATION(s): M05.79: Rheumatoid arthritis with rheumatoid factor of multiple sites without organ or systems involvement ([facility]) Z79.899: Other longterm (current) drug therapy G47.01: [...] multiple sites without organ or systems involvement ([facility]) Z79.899: Other longterm (current) drug therapy G47.01: [...] Casper Smith MD DIAGNOSTIC IMAGING O RDERABLES * XR KNEE RIGHT 4VW OR MORE (08/23/2020 11:57 AM ATHLETIC DIRECTOR) Anatomical Region Laterality Modality Lower Extremity Radiographic Irma ging 08/23/2020 2:28 PM ATHLETIC DIRECTOR Impressions 08/23/2020 2:29 PM ATHLETIC DIRECTOR Grade 4 osteoarthrosis with popliteal recess loose bodies. *Reading Radiologist: Jonathon Abbott on 08/23/2020 at 2:29 PM Narrative 08/23/2020 2:29 PM ATHLETIC DIRECTOR Right Knee 4 Views INDICATION: Rheumatoid arthritis, arthritis FINDINGS: ??February 06, 2020 comparison [id number]-[id number] configuration of the medial femoral tibial compartment with varus deformity of the knee. The medial femoral condyle is subluxed centrally relative to the tibial plateau. Joint fluid volume is minimal. Loose bodies in the popliteal recess. Advanced patellofemoral arthrosis. Procedure Note Jonathon Abbott MD - 08/23/2020 Right Knee 4 Views INDICATION: Rheumatoid arthritis, arthritis FINDINGS: February 06, 2020 comparison Uyev-wb-[id number] configuration of the medial femoral tibial compartment [...] Casper Smith MD DIAGNOSTIC IMAGING O RDERABLES * XR HIPS BILATERAL 2 VW W AP PELVIS (03/01/2020 12:00 PM CDT) Only the most recent of2 resultswithin the time period is included. Anatomical Region Laterality Modality Pelvis, Lower Extremity Radiogra phic Imaging 03/01/2020 2:10 PM CDT Impressions 03/01/2020 [...] Casper Smith MD DIAGNOSTIC IMAGING O RDERABLES * XR RIBS UNILATERAL 2 VW LEFT [...] Casper Smith MD DIAGNOSTIC IMAGING O RDERABLES * XR LUMBAR SPINE 2 OR 3 [...] 02/06/2020 at 11:59 AM Procedure Note Pj Sancehz MD - 02/06/2020 3 VIEWS LUMBAR SPINE [...] Casper Smith MD DIAGNOSTIC IMAGING O RDERABLES * XR KNEE BILAT ONE OR TWO VIEWS (02/06/2020 11:51 AM CDT) Anatomical Region Laterality Modality Lower Extremity Radiographic Irma ging 02/06/2020 1:54 PM CDT Narrative 02/06/2020 1:56 PM CDT EXAM: XR KNEE BILAT 2VW OR LESS*[id number] INDICATION: Pain in left knee, pain in [...] 02/06/2020 EXAM: XR KNEE BILAT 2VW OR LESS*[id number] INDICATION: Pain in left knee, pain in right knee COMPARISON: none available FINDINGS: There is relatively severe tricompartmental degenerative change in bilateral knees with joint space narrowing, subchondral sclerosis and hypertrophic spurring. There is no fracture or dislocation. There is no osseous destruction. *Reading Radiologist: Pj Sanchez on 02/06/2020 at 1:56 PM Casper Smith MD DIAGNOSTIC IMAGING O RDERABLES * C-REACTIVE PROTEIN (02/15/2015 11:49 AM CDT) Only the most recent of13 resultswithin the time period is included. C-Reactive Protein <0.29 <0.30 mg/dL [facility] INSURANCE BILL Blood specimen (specimen) BLOOD SPECIMEN / Unknown 02/15/2015 11:49 AM CDT 02/15/2015 1:42 PM CDT Narrative Resulting Agency Comment [facility] [address] [facility] ??[facility] [phone] Casper Smith [facility] Organization Address City/State/ZIP Co de Phone Number [facility] INSURANCE BILL * (ABNORMAL) CBC W AUTO DIFFERENTIAL (02/15/2015 11:49 AM CDT) Only the most recent of14 resultswithin the time period is included. WBC 5.4 4.4 - 10.7 x10E9/L [facility] [...] 1:42 PM CDT Narrative Resulting Agency Comment [facility] [address] ??Jeaneth HOLMAN [phone] Casper Smith MD LAB - HEMATOLOGY ORD SARITHA [facility] INSURANCE BILL * (ABNORMAL) COMPREHENSIVE METABOLIC PANEL (02/15/2015 11:49 AM CDT) Only the most recent of13 resultswithin the time period is included. Glucose 77 74 - 106 mg/dL [facility] [...] 1:42 PM CDT Narrative Resulting Agency Comment [facility] [address] ??Jeaneth HOLMAN [phone] Casper Smith MD LAB - CHEMISTRY CHELI SAAB [facility] INSURANCE BILL * DEXA BONE DENSITY 2 SITES (11/23/2014) Anatomical Region Laterality Modality Other Casper Smith MD DEXA ORDERABLES * US EXTREMITY NON VASCULAR RIGHT (02/09/2014 2:24 PM CDT) Only the most recent of3 resultswithin the time period is included. Anatomical Region Laterality Modality Lower Extremity, Upper Extremity Other Narrative 02/09/2014 2:24 PM CDT Casper Smith MD ? 02/09/2014 ??2:24 PM Bilateral Hand Ultrasound Protocol: Complete Bilateral Hand Study for RA Activity and Median nerve dimensions using MyLab5 with a 438 probe at 18mHz or KuponGidray M7 with a L14-6s probe at 14 mHz . ??This standardized study consists of dorsal and volar views of the MCP (2,3,5) and PIP (2,3) joints, with medial and lateral views as clinically indicated to show erosive change. ??The wrists are evaluated with medial dorsal views (combined as PW ) and a transverse volar view (AW). ??The median nerve is identified using a sweep technique starting in the mid forearm and measured at the proximal margin of the Quadratus and at the entrance to the carpal tunnel wrist crease immediately proximal to the carpal tunnel. ??An increase in median nerve cross section area of over 4 mm2 immediately proximal the flexor retinaculum or an overall median nerve cross section >10 mm2 suggests significant Median nerve compression. ??Synovitis, erosions and power doppler signal are recorded as 0-3. ?? Tenosynovitis is noted when present. ??Incidental findings of tophi, crystal deposition, that might effect the diagnostic impression are recorded by the commercial artist under the direction of the attending physician and interpreted by Dr Smith. she continues to exhibit features degenerative arthritis the CMC joint and mild synovitis inflammation of the wrists and MCP joints with early ??erosive change the 1st compartment of the wrist showed mild irregularity of the paired ??Adductor pollicis longus and extensor pollicis brevis tendons without tendon sheath effusion or tenderness over the area the flexor carpi prior radialis tendon sheath was distended and tender with PDUS compatible with acute inflammation Findings : Joint damage is ?? Mild erosions. ??Synovitis is compatible with ??Active inflammatory tendinitis of the flexor carpi radialis. ??Median nerve changes are ??normal. ?? IMP: flexor carpi radialis tendinitis with acute inflammation ??See injection note diffuse changes of inflammatory arthritis with erosions moderate degenerative arthritis of PIP and CMC joints Contact Casper Smith MD directly to discuss this case at [phone] or via [employer] at: [employer]. Casper Smith MD US ORDERABLES * PO REF LAB-REFLEX TEST IN [facility] (09/30/2013 8:00 PM CDT) Reflex [facility] Comment: OUR RECORDS INDICATE THAT YOU HAVE ORDERED LIPID PANEL (REFL) ORDER CODE 86517. ??THIS IS A REFLEX-SPECIFIC ORDER CODE. HOWEVER, ONLY THE INITIAL TEST WAS PERFORMED, BECAUSE WE DO NOT HAVE A REFLEX TESTING AUTHORIZATION FORM ON FILE FOR YOU. ??TO PERFORM A REFLEX TEST WE NEED YOU TO SIGN AN AUTHORIZATION FORM SPECIFYING (A) THE REFLEXIVE TEST AND (B) THE RESULTS THAT WILL TRIGGER THE PERFORMANCE OF THE REFLEX TEST. ??PLEASE CONTACT THE PROJ ENGINEER AT [facility] IF YOU WOULD LIKE ADDITIONAL TESTING DONE OR CONTACT YOUR MANAGER CHEMICAL TO OBTAIN A COPY OF THE REFLEXIVE TESTING AUTHORIZATION FORM. ? IF YOU WOULD PREFER A NON-REFLEXIVE VERSION OF LIPID PANEL (REFL), PLEASE ORDER THE NON REFLEX LIPID PANEL, ORDER CODE 7600. NO COLLECTION DATE RECEIVED. WE HAVE USED THE DATE THE SPECIMEN WAS RECEIVED BY THIS LABORATORY THE COLLECTION DATE. IF THIS IS INCORRECT, PLEASE CONTACT CLIENT SERVICES. PHONE NUMBER: [phone] Test Performed at: [facility] [address] ??[id number] MUKUND GILES DO,MPH 09/30/2013 4:2 4 AM CDT Casper Smith MD LAB - CHEMISTRY CHELI SAAB [place] Organization Address City/State/ZIP Co de Phone Number [facility] [address] [place] [address] * (ABNORMAL) LIPID PROFILE W TCHOL/HDL (PO REF LAB) (09/30/2013 8:00 PM CDT) Cholesterol 230(H) 125 - 200 mg/dL [facility] Comment: Test Performed at: [facility] [address] ??[phone] MUKUND GILES DO,MPH HDL Cholesterol 84 > [...] - CHEMISTRY CHELI SAAB Performing Organization Address [facility] de Phone Number [facility] [phone] [place] [address] * RHEUMATOID FACTOR BLOOD QUANTITATIVE (07/05/2013 3:00 PM ATHLETIC DIRECTOR) Only the most recent of2 resultswithin the time period is included. [facility] Rheumatoid Factor 12 <14 IU/mL [facility] Comment: Test Performed at: [facility] [address] ??[phone] MUKUND GILES DO,MPH Blood specimen (specimen) BLOOD SPECIMEN / Unknown 07/05/2013 4:29 AM ATHLETIC DIRECTOR Casper Smith MD LAB - CHEMISTRY CHELI SAAB Performing Organization Address [facility] Co de Phone Number [facility] [phone] [place] [address] * CYCLIC CITRUL PEPTIDE AB IGG (CCP) (07/05/2013 3:00 PM ATHLETIC DIRECTOR) [facility] Cyclic Citrullinated Peptide Antibody IgG <16 UNITS [facility] Comment: Reference Range Negative: ?<20 Weak Positive: ? 20-39 Moderate Positive: ?? 40-59 Strong Positive: ? >59 Test Performed at: [facility] [place] [address] [place], [place] ??[phone] MUKUND GILES DO,MPH 07/05/2013 4:2 9 AM ATHLETIC DIRECTOR Casper Smith MD LAB - CHEMISTRY CHELI SAAB [place] Organization Address City/State/ZIP Co de Phone Number [facility] [phone] [place] [address] * XR KNEE 1 OR 2 VW RIGHT (07/04/2013 4:02 PM ATHLETIC DIRECTOR) Anatomical Region Laterality Modality Lower Extremity Other Narrative 07/04/2013 4:02 PM ATHLETIC DIRECTOR Casper Smith MD ? 07/04/2013 ??4:02 PM Mild medial joint space narrowing Procedure Note Casper Smith MD - 07/04/2013 4:02 PM CST Mild medial joint space narrowing Casper Smith MD DIAGNOSTIC IMAGING O RDERABLES * LAB RESULTS ORDER (03/02/2013) Casper Smith MD LAB - THERAPEUTIC DR MANUEL MONITORING ORDERABLES * US EXTREMITY LEFT COMPLT NONVASC (11/16/2012 4:34 PM CDT) Only the most recent of2 resultswithin the time period is included. Anatomical Region Laterality Modality Lower Extremity, Upper Extremity Other Narrative 11/16/2012 4:34 PM CDT Casper Smith MD ? 11/16/2012 ??4:34 PM Bilateral Hand Ultrasound Protocol: Complete Bilateral Hand Study for RA Activity and Median nerve dimensions using MyLab5 with a 438 probe at 18mHz or Mindray M7 with a L14-6s probe at 14 mHz . ??This standardized study consists of dorsal and volar views of the MCP (2,3,5) and PIP (2,3) joints, with medial and lateral views as clinically indicated to show erosive change. ??The wrists are evaluated with medial dorsal views (combined as PW ) and a transverse volar view (AW). ??The median nerve is identified using a sweep technique starting in the mid forearm and measured at the proximal margin of the Quadratus and at the entrance to the carpal tunnel wrist crease immediately proximal to the carpal tunnel. ??An increase in median nerve cross section area of over 4 mm2 immediately proximal the flexor retinaculum or an overall median nerve cross section >10 mm2 suggests significant Median nerve compression. ??Synovitis, erosions and power doppler signal are recorded as 0-3. ?? Tenosynovitis is noted when present. ??Incidental findings of tophi, crystal deposition, that might effect the diagnostic impression are recorded by the commercial artist under the direction of the attending physician and interpreted by Dr Smith. Right ??Synovitis Erosion Doppler Left Synovitis Erosion Doppler C1 0 0 0 C1 2 0 0 2M 2 0 0 2M 0 0 0 2P 1 0 0 2P 2 1 0 3M 2 0 0 3M 0 0 0 3P 0 0 0 3P 0 0 0 5M 2 0 0 5M 2 1 0 PW 2 0 1 PW 2 0 0 RMN 4-11 mm2 ?? LMN 7-15mm2 ?? Findings : Joint damage is none. ??Synovitis is compatible with mild without PDUS. ??Median nerve changes are enlarged bilaterally. ?? IMP: Mild synovitis of inflammatory arthritis without activity Bilateral carpal tunnel syndrome by ultrasound criteria consider further testing Contact Casper Smith MD directly to discuss this case at [phone] or via [employer] messaging at: [employer]. Procedure Note Casper Smith MD - 11/16/2012 4:32 PM CDT Bilateral Hand Ultrasound Protocol: Complete Bilateral Hand Study for RA Activity and Median nerve dimensionsusing MyLab5 with a 438 probe at 18mHz or [facility] M7 with a L14-6s probeat 14 mHz . This standardized study consists of dorsal and volar views ofthe MCP (2,3,5) and PIP (2,3) joints, with medial and lateral views asclinically indicated to show erosive change. The wrists are evaluatedwith medial dorsal views (combined as PW ) and a transverse volar view(AW). The median nerve is identified using a sweep technique starting inthe mid forearm and measured at the proximal margin of the Quadratus andat the entrance to the carpal tunnel wrist crease immediately proximal tothe carpal tunnel. An increase in median nerve cross section area of over4 mm2 immediately proximal the flexor retinaculum or an overall mediannerve cross section >10 mm2 suggests significant Median nerve compression.Synovitis, erosions and power doppler signal are recorded as 0-3.Tenosynovitis is noted when present. Incidental findings of tophi,crystal deposition, that might effect the diagnostic impression arerecorded by the commercial artist under the direction of the attendingphysician and interpreted by Dr Smith. Right Synovitis Erosion Doppler Left Synovitis Erosion Doppler C1 0 0 0 C1 2 0 0 2M 2 0 0 2M 0 0 0 2P 1 0 0 2P 2 1 0 3M 2 0 0 3M 0 0 0 3P 0 0 0 3P 0 0 0 5M 2 0 0 5M 2 1 0 PW 2 0 1 PW 2 0 0 RMN 4-11 mm2 LMN 7-15mm2 Findings : Joint damage is none. Synovitis is compatible with mildwithout PDUS. Median nerve changes are enlarged bilaterally. 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 Casper Smith MD ORDERABLES * ACETYLCHOLINE RECEPTOR ANTIBODY PANEL (11/15/2012 1:02 PM CDT) Acetylcholine Binding Antibody 0.06 0.00 - 0.24 nmol/L [facility] INSURANCE BILL Comment: ?Negative: ?? 0.00 - 0.24 ?Borderline: 0.25 - 0.40 ?Positive: ?> 0.40 Acetylcholine Blocking Antibody 18 0 - 25 % [facility] INSURANCE BILL Comment: ?Negative: ?0 - 25 ?Borderline: ?? 26 - 30 ?Positive: ? >30 ? . ? Results for this test are for research purposes ? only by the assay's save all operator. ??The performance ? characteristics of this product have not been ? established. ??Results should not be used as a ? diagnostic procedure without confirmation of the ? diagnosis by another medically established ? diagnostic product or procedure. Acetylcholine Modulating Antibody <12 0 - 20 % [facility] INSURANCE BILL Comment: ? Negative: ?<21 ? Equivocal: ? 21 - 25 ? Positive: ?>25 ?The assay is linear between values of 12 and 64. ?Those <12 and >64 are reported as such. ??No single ?value for ACR-modulating antibody should be used as ?a sole basis for diagnosis or response to therapy. Blood specimen (specimen) BLOOD SPECIMEN / Unknown 11/15/2012 1:02 PM CDT 11/15/2012 7:37 PM CDT Narrative Resulting Agency Comment [facility] [address] ??[facility] [phone] Casper Smith MD LAB - SEROLOGY ORDER KAMILA [facility] INSURANCE BILL * CYCLIC CITRUL PEPTIDE ANTIBODY IGG/IGA (CCP) (11/15/2012 12:59 PM CDT) CCP Antibodies IgG/IgA 7 0 - 19 units [facility] ACCOUNT BILL Comment: ? Negative ? <20 ? Weak positive ?20 - 39 ? Moderate positive ??40 - 59 ? Strong positive ?>59 BLOOD SPECIMEN / Unknown 11/15/2012 12:59 PM CDT 11/15/2012 7:37 PM CDT Narrative Resulting Agency Comment [facility] [address] ??[facility] [phone] Casper Smith MD LAB - SEROLOGY ORDER KAMILA [facility] ACCOUNT BILL * (ABNORMAL) HEPATIC FUNCTION PANEL (12/16/2011) Protein Total 7.1 6.2 - 8.3 g/dL [facility] Albumin 4.5 3.6 - 5.1 g/dL [facility] Globulin Total 2.6 2.2 - 3.9 g/dL (calc) [facility] Albumin/Globulin Ratio 1.7 1.0 - 2.1 (calc) [facility] Bilirubin Total 0.5 0.2 - 1.2 mg/dL [facility] Bilirubin Direct 0.1 < OR = 0.2 mg/dL [facility] Bilirubin Indirect 0.4 0.2 - 1.2 mg/dL (calc) [facility] Alkaline Phosphatase 56 33 - 130 U/L [facility] AST 50(H) 10 - 35 U/L [facility] ALT 23 6 - 40 U/L [facility] Comment: Test Performed at: [facility] [address] ??[id number] MUKUND GILES DO,MPH Blood specimen (specimen) BLOOD SPECIMEN / Unknown 12/16/2011 12/17/2011 4:19 AM CDT Casper Smith MD LAB - CHEMISTRY ORDE [facility] Performing Organization Address City/[facility]/ZIP Co de Phone Number [facility] [address] [place] [address] * SED RATE WESTERGREN AUTO (05/15/2011 3:16 PM ATHLETIC DIRECTOR) Only the most recent of2 resultswithin the time period is included. Erythrocyte Sedimentation Rate Westergren 4 0 - 56 mm/hr [facility] INSURANCE BILL Blood specimen (specimen) BLOOD SPECIMEN / Unknown 05/15/2011 3:16 PM ATHLETIC DIRECTOR 05/15/2011 8:51 PM ATHLETIC DIRECTOR Narrative [facility] INSURANCE BILL - 05/16/2011 7:24 AM ATHLETIC DIRECTOR A courtesy copy of this report has been sent to [phone]. Resulting Agency Comment [facility] [address] ??[facility] [phone] Casper Smith MD LAB - HEMATOLOGY INDIGO MELARA Performing Organization Address [facility] de Phone Number [facility] INSURANCE BILL * HEPATITIS B SURFACE ANTIGEN (05/15/2011 3:16 PM ATHLETIC DIRECTOR) Hepatitis B Virus Surface Antigen Negative Negative [facility] INSURANCE BILL Blood specimen (specimen) BLOOD SPECIMEN / Unknown 05/15/2011 3:16 PM ATHLETIC DIRECTOR 05/15/2011 8:51 PM ATHLETIC DIRECTOR Narrative [facility] INSURANCE BILL - 05/16/2011 7:24 AM ATHLETIC DIRECTOR A courtesy copy of this report has been sent to [phone]. Resulting Agency Comment [facility] [address] ??[facility] [phone] Casper Smith MD LAB - CHEMISTRY CHELI SAAB Performing Organization Address [facility] de Phone Number [facility] INSURANCE BILL * HEPATITIS C ANTIBODY (05/15/2011 3:16 PM ATHLETIC DIRECTOR) Hepatitis C Virus Antibody <0.1 0.0 - [...] BLOOD SPECIMEN / Unknown 05/15/2011 3:16 PM ATHLETIC DIRECTOR 05/15/2011 8:51 PM ATHLETIC DIRECTOR Narrative [facility] INSURANCE BILL - 05/16/2011 7:24 AM ATHLETIC DIRECTOR A courtesy copy of this report has been sent to [phone]. Resulting Agency Comment [facility] [address] ??[facility] [phone] Casper Smith MD LAB - CHEMISTRY CHELI SAAB [facility] INSURANCE BILL * XR CERVICAL SPINE 2 OR 3 VW (01/23/2011 12:31 PM CDT) Anatomical Region Laterality Modality Spine Other Narrative 01/23/2011 12:31 PM CDT JOSÉ LUIS Foy ? 01/23/2011 12:31 PM Mild DJD in C3-C4 and C4-C5 Procedure Note Karly Snyder ANP - 01/23/2011 12:30 PM CDT Mild DJD in C3-C4 and C4-C5 Karly Snyder VISUAL DESIGNER-MANAGER PERFORMANCE IMPROVEMENT DIAGNOSTIC IMAGIN G ORDERABLES * (ABNORMAL) CANDIDA STAINING PATTERNS (PO REF LAB) (10/18/2010 1:56 PM CDT) Homogeneous Pattern NOT NEEDED [facility] ACCOUNT [facility] Comment:Ancillary determined the test is not needed Nucleolar Pattern NOT NEEDED [facility] ACCOUNT [facility] Comment:Ancillary determined the test is not needed Speckled Pattern 1:160(H) LAB [facility] ACCOUNT BILL Centromere Pattern NOT NEEDED [facility] ACCOUNT [facility] Comment:Ancillary determined the test is not needed Note [facility] ACC[facility] Comment: A positive ESTHELA result may occur in healthy individuals or be associated with a variety of diseases. ??See interpre- tation below: ? . Pattern ?Antigen Detected ??Suggested Disease Association ? Homogeneous ??DNA(ds,ss,), ?High titers - SLE (Smooth) ? Histone ? Speckled ? Sm, FISH HATCHERY SUPERINTENDENT, SCL-70, ??SLE,MCTD,Scleroderma,Sjogrens ? SS-A/SS-B ? Nucleolar ?SCL-70, PM-1/SCL ??High titers Scleroderma Poly- ? myositis/Scleroderma Overlap ? Centromere ?? Centromere ?PSS w/Crest syndrome variable ?? 10/18/2010 1:56 PM CDT 10/18/2010 9:12 PM CDT Narrative Resulting Agency Comment [facility] [address] [facility] ??[facility] [phone] Casper Smith MD LAB - PATHOLOGY/CYTO LOGY ORDERABLES Performing Organization Address City/State/[facility] Co de Phone Number [facility] ACCOUNT BILL * ESTHELA BLOOD SCREEN W/REFLEX TITER (10/18/2010 1:56 PM CDT) ESTHELA See patterns [facility] ACCOUNT BILL Comment: ?Negative ?? <1:80 ?Borderline ??1:80 ?Positive ?? >1:80 BLOOD SPECIMEN / Unknown 10/18/2010 1:56 PM CDT 10/18/2010 9:12 PM CDT Narrative Resulting Agency Comment [facility] [address] ??[facility] [phone] Casper Smith MD LAB - CHEMISTRY CHELI SAAB [facility] ACCOUNT BILL * TSH (10/18/2010 1:56 PM CDT) TSH 1.160 0.450 - 4.500 uIU/mL [facility] ACCOUNT BILL BLOOD SPECIMEN / Unknown 10/18/2010 1:56 PM CDT 10/18/2010 9:12 PM CDT Narrative Resulting Agency Comment [facility] [place] [address] ??[facility] [phone] Casper Smith MD LAB - CHEMISTRY CHELI SAAB [facility] ACCOUNT BILL Care Teams It Software Engineer Relationship Specialty Start Date End Date Tim Altman MD PCP - General 10/18/10 [place] [address] [place] [address] Orthopedic Surgery 05/02/11 [place] [address] [place] [address] Rheumatology 08/20/11
--- OUTSIDE RECORDS SUMMARY | 2024-06-17 14:44 | XMS_ITS | Encounter Summary ---
Author Organization [facility] Address [facility] [facility] [place] [address] Care Team Providers Care Public Works Inspector Name Role Phone Tim Altman MD Primary Care Provider [phone] Vani Waldrop MD Unavailable [phone] Casper Smith MD Unavailable Unavailable Reason for Visit * Reason Comments Pain Knee Encounter Details Date Type Department Care Team (Latest Contact Info) Description 07/04/2013 9:00 AM FIRST ASSISTANT MANAGER Procedure visit [facility] - Family Medicine [address] [place] [id number] DJD (degenerative joint disease) of knee Social History Tobacco Use Types Packs/Day Years Used Date Smoking Tobacco: Never Smokeless Tobacco: Never Alcohol Use Standard Drinks/Week Comments No 0 (1 standard drink = 0.6 oz pur e alcohol) Sex and Gender Information Value Date Recorded Sex Assigned at Not on file Gender Identity Not on file Sexual Orientation Not on file documented as of this encounter Procedure Notes * Casper Smith MD - 07/04/2013 4:02 PM CSTAssociated Order(s): XR KNEE 1 OR 2 VW RIGHT Mild medial joint space narrowing T ASSISTANT MANAGER documented in this encounter Plan of Treatment Not on file documented as of this encounter Procedures Procedure Name Priority Date/Time Associated Diagnosis Comments XR KNEE RIGHT 2VW OR LESS Routine 07/04/2013 4:02 PM FIRST ASSISTANT MANAGER DJD (degenerative joint disease) of knee documented in this encounter Results * XR KNEE 1 OR 2 VW RIGHT (07/04/2013 4:02 PM FIRST ASSISTANT MANAGER) Anatomical Region Laterality Modality Lower Extremity Other Narrative 07/04/2013 4:02 PM FIRST ASSISTANT MANAGER Casper Smith MD ? 07/04/2013 ??4:02 PM Mild medial joint space narrowing Procedure Note Casper Smith MD - 07/04/2013 4:02 PM CST Mild medial joint space narrowing Casper Smith MD DIAGNOSTIC IMAGING O RDERABLES documented in this encounter Visit Diagnoses Diagnosis DJD (degenerative joint disease) of knee Osteoarthrosis, unspecified whether generalized or localized, lower leg documented in this encounter Care Teams Public Works Inspector Relationship Specialty Start Date End Date Tim Altman MD PCP - General 10/18/10 [place] [address] [place] [address] Orthopedic Surgery 05/02/11 [place] [address] [place] [address] Rheumatology 08/20/11 documented as of this encounter
--- OUTSIDE RECORDS SUMMARY | 2024-06-17 14:44 | XMS_ITS | Encounter Summary ---
Author Organization [facility] Address [facility] [place] [address] Care Team Providers Care Program Coordinator Name Role Phone Tim Altman MD Primary Care Provider [phone] Vani Waldrop MD Unavailable [phone] Casper Smith MD Unavailable Unavailable Reason for Visit * Reason Comments Upper Extremity Problem Encounter Details Date Type Department Care Team (Late st Contact Info) Description 02/09/2014 Procedure visit [facility] - Rheumatology [address] [place] [address] Casper Smith MD Hand pain, right Social History Tobacco Use Types Packs/Day Years [...] Procedure Notes * Casper Smith MD - 02/09/2014 2:20 PM CDTAssociated Order(s): US EXTREMITY NON VASCULAR RIGHT Bilateral Hand Ultrasound Protocol: Complete Bilateral Hand Study for RA Activity and Median nerve dimensions using MyLab5 with a 438 probe at 18mHz or [employer] M7 with a L14-6s probe at 14 mHz . This standardized study consists of dorsal and volar views of the MCP (2,3,5) and PIP (2,3) joints, with medial and lateral views as clinically indicated to show erosive change. The wrists are evaluated with medial dorsal views (combined as PW ) and a transverse volar view (AW). The median nerve is identified using a sweep technique starting in the mid forearm and measured at the proximal margin of the Quadratus and at the entrance to the carpal tunnel wrist crease immediately proximal to the carpal tunnel. An increase in median nerve cross section area of over 4 mm2 immediately proximal the flexor retinaculum or an overall median nerve cross section >10 mm2 suggests significant Median nerve compression. Synovitis, erosions and power doppler signal are recorded as 0-3. Tenosynovitis is noted when present. Incidental findingsof tophi, crystal deposition, that might effect the diagnostic impression are recorded by the shoe shanker under the direction of the attending physician and interpreted by Dr Smith. she continues to exhibit features degenerative arthritis the CMC joint and mild synovitis inflammation of the wrists and MCP joints with early erosive change the 1st compartment of the wrist showed mild irregularity of the paired Adductor pollicis longus and extensor pollicis brevis tendons without tendon sheath effusion or tenderness over the area the flexor carpi prior radialis tendon sheath was distended and tender with PDUS compatible with acute inflammation Findings : Joint damage is Mild erosions. Synovitis is compatible with Active inflammatory tendinitis of the flexor carpi radialis. Median nerve changes are normal. IMP: flexor carpi radialis tendinitis with acute inflammation See injection note diffuse changes of inflammatory arthritis with erosions moderate degenerative arthritis of PIP and CMC joints Contact Casper Smith MD directly to discuss this case at [phone] or via [employer] messaging at: [employer]. documented in this encounter Plan of Treatment Not on file documented as of this encounter Procedures Procedure Name Priority Date/Time Associated Diagnosis Comments US EXTREMITY NON VASCULAR RIGHT Routine 02/09/2014 2:24 PM CDT Hand pain, right documented in this encounter Results * US EXTREMITY NON VASCULAR RIGHT (02/09/2014 2:24 PM CDT) Anatomical Region Laterality Modality Lower Extremity, Upper Extremity Other Narrative 02/09/2014 2:24 PM CDT Casper Smith MD ? 02/09/2014 ??2:24 PM Bilateral Hand Ultrasound Protocol: Complete Bilateral Hand Study for RA Activity and Median nerve dimensions using MyLab5 with a 438 probe at 18mHz or [employer] M7 with a L14-6s probe at 14 [...] the diagnostic impression are recorded by the shoe shanker under the direction of the attending physician [...] MD directly to discuss this case at [phone] or via [employer] messaging at: [employer] Casper Smith MD US ORDERABLES documented in this encounter Visit Diagnoses Diagnosis Hand pain, right- Primary Pain in limb documented in this encounter Care Teams Program Coordinator Relationship Specialty Start Date End Date Tim Altman MD PCP - General 10/18/10 [place] [address] [place] [address] Orthopedic Surgery 05/02/11 [place] [address] [place] [address] Rheumatology 08/20/11 documented as of this encounter
--- OUTSIDE RECORDS SUMMARY | 2024-06-17 14:44 | XMS_ITS | Encounter Summary ---
Author Organization [facility] Address [address] [place] [address] [place] [address] Care Team Providers Care Injection Machine Operator Name Role Phone Tim Altman MD Primary Care Provider [phone] Vani Waldrop MD Unavailable [phone] Casper Smith MD Unavailable Unavailable Reason for Visit * Reason Comments Refill Request Encounter Details Date Type Department Care Team (Late st Contact Info) Description 11/24/[address] [facility] - Rheumatology [address] [place] [address] Casper Smith MD Refill Request Social History [...] on filedocumented in this encounter Care Teams Injection Machine Operator Relationship Specialty Start Date End Date Tim Altman MD PCP - General 10/18/10 [place] [address] [place] [address] Orthopedic Surgery 05/02/11 [place] [address] [place] [address] Rheumatology 08/20/11 documented as of this encounter
--- OUTSIDE RECORDS SUMMARY | 2024-06-17 14:44 | XMS_ITS | Encounter Summary ---
Author Organization [facility] Address [address] [place] [address] [place] [address] Care Team Providers Care Lamination Operator Name Role Phone Tim Altman MD Primary Care Provider [phone] Vani Wladrop MD Unavailable [phone] Casper Smith MD Unavailable Unavailable Reason for Visit * Reason Comments Refill Request Encounter Details Date Type Department Care Team (Late st Contact Info) Description 12/19/2013 Refill [facility] - Rheumatology [address] [place] [address] Casper Smith MD Refill Request Social History [...] on filedocumented in this encounter Care Teams Lamination Operator Relationship Specialty Start Date End Date Tim Altman MD PCP - General 10/18/10 [place] [address] [place] [address] Orthopedic Surgery 05/02/11 [place] [address] [place] [address] Rheumatology 08/20/11 documented as of this encounter
--- OUTSIDE RECORDS SUMMARY | 2024-06-17 14:44 | XMS_ITS | Encounter Summary ---
Author Organization [facility] Address [address] [place] [address] [place] [address] Care Team Providers Care Network Contractor Name Role Phone Tim Altman MD Primary Care Provider [phone] Vani Waldrop MD Unavailable [phone] Casper Smith MD Unavailable Unavailable Reason for Visit * Treatment (Routine) - Closed Specialty Diagnoses / Procedures Referred By Dariela nettles Referred To Contact Infusion Therapy Nurse Diagnoses Rheumatoid arthritis(714.0) ([facility]) Procedures [facility] INJECTION TOCILIZUMAB 1 MG Casper Smith MD Referral ID Status Reason Start Date Expiration Date Visits Re quested Visits Authorized [id number] Closed 09/07/2013 03/06/2014 1 6 Encounter Details Date Type Department Care Team (Latest Contact Info) Description 11/02/2013 9:51 AM CDT - 11/02/2013 11:59 PM CDT Hospital Encounter [facility] - Rheumatology [address] [place] [id number] Casper Smith MD Discharge Disposition: Home or [...] Sign Reading Time Taken Comments Blood Pressure 143/81 11/02/2013 10:13 AM CDT Pulse 80 11/02/2013 10:13 AM CDT Temperature 36.6 ??C (97.8 ??F) 11/02/2013 10:13 AM C DT Respiratory Rate 16 11/02/2013 10:13 AM CDT Oxygen Saturation - - Inhaled Oxygen Concentration - - Weight 106.6 kg (235 lb) 11/02/2013 10:13 AM CDT Height 162.6 cm (5' 4 ) 11/02/2013 10:13 AM CDT Body Mass Index 40.34 11/02/2013 10:13 AM CDT documented in this encounter Discharge Instructions * Discharge Instructions* Claudia Cox RN - 11/02/2013 10:17 AM CDT [place] [facility] Post Infusion instructions You have received your infusion treatment today. You can remove your bandage when you get home. If you get a rash from your bandage, tell the infusion nurse at your next visit so they will use a different type of dressing in the future. Our infusion staff is very experienced and can be a good resource for questions. If you have any problems such as fever, rash or breathing problems please call your [facility] Rheumatology physician for further instructions. While most problems that occur around the time of an infusion are very mild and not dangerous, they should not be ignored. Thursday through Thursday 9-5 call the office at [phone] After hours or on the weekend call the exchange at [phone] If you have had lab work done today the staff will contact you via mail or by telephone with the results. Remember to bring a copy of your labs to your visits with your primary care doctor; it may save you an unnecessary blood draw. For the patients that have internet access, we now have ???My Chart?? available for your use. ???My Chart?? gives you private access to your medical chart including test and lab results. You may also contact your physician via email through ???My Chart?? . The physician will reply to your questions at their soonest opportunity. Be sure to use the telephone to communicate any emergencies to ensure a quick response. If you are interested in starting your free ???My Chart?? account please contact our staff for instructions at your next visit. We appreciate the opportunity to serve you and are glad you have chosen [facility] as your provider. Claudia Cox RN * Discharge Instructions* Document, Scanned - 11/09/2013 11:31 PM CDT documented in this encounter Medications at Time of Discharge Medication Sig Dispensed Refills Start Date End Date acetaminophen (TYLENOL) 500 MG tabletIndications:Fib romyalgia Take 2 Tabs by mouth 3 times daily. Maximum allowable Acetaminophen amount = 4 Grams (4000 mg) / 24 hours. 11/15/2012 ALPRAZolam (XANAX) 0.5 MG tablet Take 0.5 mg by mouth 2 times daily. azaTHIOprine (IMURAN) 50 MG tabletIndications:Rhe umatoid arthritis(714.0) ([facility]) Take 2 Tabs by mouth once daily. 60 Tab 6 07/28/2013 Calcium Carbonate-Vit D-Min (CALCIUM 1200 PO) Take by mouth daily. Cyanocobalamin (B-12) 1000 MCG TBCR Take by mouth daily. meloxicam (MOBIC) 7.5 MG tabletIndications:DJD (degenerative joint disease) of knee Take 1-2 Tabs by mouth once daily. for 7 days to treat flare ups of pain and inflammation Repeat as needed or call Dr Smith if not better 30 Tab 6 11/02/2013 metoprolol tartrate IR (LOPRESSOR) 25 MG tablet Take 25 mg by mouth 2 times daily. omeprazole (PRILOSEC) 40 MG capsule Take 40 mg by mouth 2 times daily. carbidopa-levodopa CR (SINEMET CR) 50-200 MG tablet TAKE ONE TABLET BY MOUTH TWICE A DAY 60 Tab 2 09/03/2013 12/12/2013 folic acid (FOLVITE) 1 MG tabletIndications:PMR (polymyalgia rheumatica) ([facility]) Take 2 Tabs by mouth once daily. 60 Tab 12 11/15/2012 12/19/2013 gabapentin (NEURONTIN) 600 MG tablet TAKE ONE TABLET BY MOUTH IN THE MORNING TWO IN THE EVENING 90 Tab 10 05/30/2013 04/26/2014 gabapentin (NEURONTIN) 600 MG tabletIndications:Fib romyalgia Take 1-2 Tabs by mouth 3 times daily. 90 Tab 11 11/15/2012 11/21/2013 meloxicam (MOBIC) 7.5 MG tabletIndications:DJD (degenerative joint disease) of knee Take 1-2 Tabs by mouth once daily. for 7 days to treat flare ups of pain and inflammation Repeat as needed or call Dr Smith if not better 30 Tab 6 11/02/2013 11/21/2013 methotrexate 2.5 MG tablet TAKE 8 TABS BY MOUTH EVERY 7 DAYS. 32 Tab 3 09/22/2013 01/16/2014 ondansetron, disintegrating, (ZOFRAN ODT) 4 MG tablet Take 4 mg by mouth every 6 hours as needed. Allow tablet to dissolve on the tongue 10/19/2014 sertraline (ZOLOFT) 100 MG tabletIndications:Fib romyalgia Take 1 Tab by mouth once daily. 30 Tab 12 11/15/2012 12/12/2013 tocilizumab 20 MG/ML in NaCl 0.9 % 100 mL Pt to receive IV infusion 440 mg Actemra/250cc 0.9%normal saline per Actemra practice. Patient will revieve IV every 4 weeks for 12 months unless further orders received from Dr. Smith. Order will in 1 year. 09/28/2013 4 traMADol (ULTRAM) 50 MG tablet TAKE TWO TABLETS BY MOUTH THREE TIMES DAILY WITH TYLENOL 180 Tab 4 10/24/2013 11/24/2013 documented as of this encounter Progress Notes * Claudia Cox RN - 11/02/2013 10:58 AM CDT AMOS Lexi Ewa [id number] 11/02/2013 Diagnosis: Rheumatoid arthritis [714.0]. Patient questionnaire results Health Assessment Questionnaire MHAQ: Pain: Global: Rapid 3: Sleep: GI: Fatigue: BP 143/81 Pulse 80 Temp 97.8 ??F Resp 16 Wt 106.595 kg (235 lb) BMI 40.32 kg/m2 @ MEDICATIONS FOR CURRENT ENCOUNTER: ?? SCHEDULED MEDICATIONS: ?? Tocilizumab 440 mg in 0.9% NaCl 0.9 % IVPB, Intravenous, Once ?? CONTINUOUS MEDICATIONS: PRN MEDICATIONS: ?? Number of 24 gauge 3/4 inch placed in Right hand ?? 1 attempt(s). ?? Pt returned to infusion room with a mild rash and complaints of itching. Dr Smith saw pt at chairside. Pt was given 10 mg Lortadine and 1000 mg tylenol. Pt states rash and itching is improving Patient monitored throughout procedure. Tolerated well? Yes Next treatment? 4 weeks Claudia Cox, RN documented in this encounter Miscellaneous Notes * Miscellaneous Scans - Document, Scanned - 11/09/2013 11:31 PM CDT documented in this encounter Plan of Treatment Not on file documented as of this encounter Visit Diagnoses Diagnosis Rheumatoid arthritis(714.0) ([facility])- Primary Rheumatoid arthritis documented in this encounter Administered Medications Inactive Administered Medications - up to 3 most recent administrations Medication Order MAR Action Action Date Dose Rate Site Tocilizumab 440 mg in 0.9% NaCl 0.9 % IVPB 440 mg, at 100 mL/hr, Intravenous, ONCE, 1 dose, On Thu11/02/13 at 1015 $ Given 11/02/2013 10:19 AM CDT 440 mg 100 mL/ hr documented in this encounter Care Teams Network Contractor Relationship Specialty Start Date End Date Tim Altman MD PCP - General 10/18/10 [place] [address] [place] [address] Orthopedic Surgery 05/02/11 [place] [address] [place] [address] Rheumatology 08/20/11 documented as of this encounter
--- OUTSIDE RECORDS SUMMARY | 2024-06-17 14:44 | XMS_ITS | Encounter Summary ---
Author Organization [facility] Address [address] [place], [place] [address] [address] Care Team Providers Care Stencil Cutter Name Role Phone Tim Altman MD Primary Care Provider [phone] Vani Waldrop MD Unavailable [phone] Casper Smith MD Unavailable Unavailable Encounter Details Date Type Department Care Team (Late st Contact Info) Description 07/05/2013 Orders Only [facility] Medical [facility] - Rheumatology [address] [place] [id number] Casper Smith MD Social History Tobacco Use [...] Procedure Name Priority Date/Time Associated Diagnosis Comments CYCLIC CITRULLINATED PEPTIDE(CCP) AB IGG 07/05/2013 3:00 PM POURED WALL FOREMAN documented in this encounter Results * CYCLIC CITRUL PEPTIDE AB IGG (CCP) (07/05/2013 3:00 PM POURED WALL FOREMAN) Pathologist [facility] Cyclic Citrullinated Peptide Antibody IgG <16 [facility] Comment: Reference Range Negative: ?<20 Weak Positive: ? 20-39 Moderate Positive: ?? 40-59 Strong Positive: ? >59 Test Performed at: [facility] [address] [place], [place] ??[address] MUKUND GILES DO,MPH 07/05/2013 4:2 9 AM POURED WALL FOREMAN Casper Smith MD LAB - CHEMISTRY [facility] [address] [place] [address] documented in this encounter Visit Diagnoses Not on filedocumented in this encounter Care Teams Stencil Cutter Relationship Specialty Start Date End Date Tim Altman MD PCP - General 10/18/10 [place] [address] [place] [phone] Orthopedic Surgery 05/02/11 [place] [address] [place] [address] Rheumatology 08/20/11 documented as of this encounter
--- OUTSIDE RECORDS SUMMARY | 2024-06-17 14:44 | XMS_ITS | Encounter Summary ---
Author Organization [facility] Address [address] [place] [address] [place] [address] Care Team Providers Care Chief Jailer Name Role Phone Tim Altman MD Primary Care Provider [phone] Vani Walrdop MD Unavailable [phone] Casper Smith MD Unavailable Unavailable Reason for Visit * Reason Comments Refill Request Encounter Details Date Type Department Care Team (Late st Contact Info) Description 10/24/2013 Refill [facility] - Rheumatology [address] [place] [address] Casper Smith MD Refill Request Social History [...] on filedocumented in this encounter Care Teams Chief Jailer Relationship Specialty Start Date End Date Tim Altman MD PCP - General 10/18/10 [place] [address] [place] [phone] Orthopedic Surgery 05/02/11 [place] [address] [place] [address] Rheumatology 08/20/11 documented as of this encounter
--- OUTSIDE RECORDS SUMMARY | 2024-06-17 14:44 | XMS_ITS | Encounter Summary ---
Author Organization [facility] Address [address] [place] [address] [place] [address] Care Team Providers Care Foundry Superintendant Name Role Phone Tim Altman MD Primary Care Provider [phone] Vani Waldrop MD Unavailable [phone] Casper Smith MD Unavailable Unavailable Reason for Visit * Reason Onset Date Comments Erroneous encounter-disregard 09/02/2013 Encounter Details Date Type Department Care Team (Late st Contact Info) Description 09/02/2013 Telephone [facility] - Rheumatology [address] [place] [address] Casper Smith MD Erroneous encounter-disregard Social History Tobacco Use Types Packs/Day Years [...] on filedocumented in this encounter Care Teams Foundry Superintendant Relationship Specialty Start Date End Date Tim Altman MD PCP - General 10/18/10 [place] [address] [place] [phone] Orthopedic Surgery 05/02/11 [place] [address] [place] [phone] Rheumatology 08/20/11 documented as of this encounter
--- OUTSIDE RECORDS SUMMARY | 2024-06-17 14:44 | XMS_ITS | Encounter Summary ---
Author Organization [facility] Address [facility] [place] [address] Care Team Providers Care Cosmetic Counselor Name Role Phone Tim Altman MD Primary Care Provider [phone] Vani Waldrop MD Unavailable [phone] Casper Smith MD Unavailable Unavailable Reason for Visit * Reason Comments Pain Knee right knee pain & sw elling. Burning in back of knee Encounter Details Date Type Department Care Team (Late st Contact Info) Description 08/09/2013 11:45 AM FORMING MACHINE ADJUSTER Office Visit [facility] - Rheumatology [address] [place], [place] [id number] Casper Smith MD Rheumatoid arthritis (HCC) (Primary Dx); Right knee pain Social History Tobacco Use Types Packs/Day Years [...] Sign Reading Time Taken Comments Blood Pressure 128/78 08/09/2013 11:59 AM FORMING MACHINE ADJUSTER Pulse 108 08/09/2013 11:59 AM FORMING MACHINE ADJUSTER Temperature - - Respiratory Rate - - Oxygen Saturation - - Inhaled Oxygen Concentration - - Weight 107 kg (236 lb) 08/09/2013 11:59 AM FORMING MACHINE ADJUSTER Height 163.8 cm (5' 4.5 ) 08/09/2013 11:59 AM CS T Body Mass Index 39.88 08/09/2013 11:59 AM FORMING MACHINE ADJUSTER documented in this encounter Progress Notes * Casper Smith MD - 08/09/2013 2:03 PM CST Subjective: Lexi Mcneil is a 57 y.o. female referred By Tim Altman for evaluation and treatment of chronic pain Who was seen today for Chief Complaint Patient presents with ??? Pain Knee right knee pain & swelling. Burning in back of knee Daily morning stiffness, polyarticular arthritis, inflammatory fluid [...] mildly inflammatory fluid given History of good bu temporary response to steroid injection in past. she will continue low-dose prednisone and methotrexate she is due to start Actemra soon. Her right knee is swollen today the fluid his minimally inflammatory worse on the right than the left. Thus weonly drained her right knee. I gave her meloxicam for flare-ups of arthritis like this. I hope thatshcuong will do better with Actemra. We continue to monitor for methotrexate toxicity Health Assessment Questionnaire MHAQ: 3.7 Pain: 8.5 Global: 8.5 Rapid 3: 20.7 GI: 5.5 Fatigue: 8 Patient Active Problem List Diagnosis Date Noted ??? Restless legs syndrome (RLS) 05/15/2011 05/15/2011 will start Simenet ??? DJD (degenerative joint disease) of knee 10/18/2010 occasional flare ??? Insomnia 10/18/2010 ??? Fibromyalgia 10/17/2010 10/17/2010 chart abstraction ??? PMR (polymyalgia rheumatica) 10/17/2010 Hx of TA biopsy showing mild inflammation on chronic steroids 05/15/2011 flared today incease prednisone Diagnostic ultrasound for causes of bilateral hand pain 03/11/2013 Negative CCP and no erosions on recent US of hands Outpatient Prescriptions Prior to Visit Medication Status Sig Dispense Refill ??? azaTHIOprine (IMURAN) 50 MG tablet Active Take 2 Tabs by mouth once daily. 60 Tab 6 ??? predniSONE (DELTASONE) 5 MG tablet Active Take 1-2 Tabs by mouth once daily. Pt takes 1/2 tab once daily 60 Tab 6 ??? gabapentin (NEURONTIN) 600 MG tablet Active TAKE ONE TABLET BY MOUTH IN THE MORNING TWO IN THE EVENING 90 Tab 10 ??? carbidopa-levodopa CR (SINEMET CR) 50-200 MG tablet Active TAKE ONE TABLET BY MOUTH TWICE A DAY60 Tab 3 ??? traMADol (ULTRAM) 50 MG tablet Active TAKE TWO TABLETS BY MOUTH THREE TIMES DAILY WITH TYLENOL 180 Tab 3 ??? methotrexate 2.5 MG tablet Active TAKE 8 TABS BY MOUTH EVERY 7 DAYS. 32 Tab 4 ??? gabapentin (NEURONTIN) 600 MG tablet Active Take 1-2 Tabs by mouth 3 times daily. 90 Tab 11 ??? folic acid (FOLVITE) 1 MG tablet Active Take 2 Tabs by mouth once daily. 60 Tab 12 ??? sertraline (ZOLOFT) 100 MG tablet Active Take 1 Tab by mouth once daily. 30 Tab 12 ??? acetaminophen (TYLENOL) 500 MG tablet Active Take 2 Tabs by mouth 3 times daily. Maximum allowable Acetaminophen amount = 4 Grams (4000 mg) / 24 hours. ??? ALPRAZolam (XANAX) 0.5 MG tablet Active Take 0.5 mg by mouth 2 times daily. ??? metoprolol tartrate IR (LOPRESSOR) 25 MG tablet Active Take 25 mg by mouth 2 times daily. ??? omeprazole (PRILOSEC) 40 MG capsule Active Take 40 mg by mouth 2 times daily. ??? Cyanocobalamin (B-12) 1000 MCG TBCR Active Take by mouth daily. ??? Calcium Carbonate-Vit D-Min (CALCIUM 1200 PO) Active Take by mouth daily. ??? methylPREDNISolone (MEDROL DOSEPAK) 4 MG tablet Discontinued 1 Packet 0 Past Medical History Diagnosis Date ??? PMR (polymyalgia rheumatica) ??? Fibromyalgia ??? RSD (reflex sympathetic dystrophy) Past Surgical History Procedure Date ??? Pr temporal artery ligatn or bx ??? Ankle fracture repair w levy, distal tibia History Social History ??? Marital Status: Spouse Name: Carlitos Number of Children: 2 ??? Years of Education: N/A Occupational History ??? Disability Ankle fracture Social History Main Topics ??? Smoking status: Never Smoker ??? Smokeless tobacco: Never Used ??? Alcohol Use: No ??? Drug Use: No no IVDA ??? Sexually Active: Not Currently -- Male partner(s) Other Topics Concern ??? Not on file Social History Narrative ??? No narrative on file Family History Problem Relation Age of Onset ??? Osteoarthritis Mother ??? Hypertension Mother ??? Coronary Artery Disease Mother Allergies as of 08/09/2013 - reviewed 08/09/2013 Allergen Reaction Noted ??? Amitriptyline 10/17/2010 ??? Codeine 10/18/2010 ??? Crestor (rosuvastatin) 10/17/2010 ??? Sulfa drugs 10/17/2010 ??? Vicodin (hydrocodone-acetaminophen) 10/17/2010 ??? Pcn (penicillins) Rash 10/17/2010 ??? Fluorescein Swelling 12/24/2010 ??? Other 10/18/2010 ??? Provera (medroxyprogesterone acetate) 10/17/2010 ??? Vytorin 10/17/2010 ??? Zinc 10/18/2010 [...] addiction, suicide, insomnia, daytime sleepiness, Objective: BP: 128/78 Pulse: 108 Wt: 107.049 kg (236 lb) BMI: 39.88 kg/m2 FiO2: Body mass index is 39.88 kg/(m^2). (negative exam findings are in normal text, positive findings are highlighted below) SJ=8 TJ=5 Nodules=0 GEN: anxious , confused , thin , obese, Cushingoid, ASSISTIVE DEVICE: bedside commode, cane, crutches, prosthesis, splint/brace, walker and wheelchair HEENT: [place] , cerumen , anisocoria, retinal, hemorrhage, thrush, [...] JOINTS: HANDS: Joints: tender swollen MCP PIP, [place] Jina nodes, abn 1st CMC, Flexor tend, Finger Deformity: [place] neck/ [place]niere/ [place] finger, Ulnar deviation, Dupuytren's, [...] and Knee Diagnosis: Encounter Diagnoses Name Primary? DJD (degenerative joint disease) of knee Yes ??? Right knee pain Immunization History Administered Date(s) Administered ??? Methylprednisolone 40mg 01/23/2011 ??? Methylprednlsolone 80mg 12/09/2011, 11/15/2012, 02/28/2013, 07/04/2013 ??? PPD 02/28/2013 ??? Synvisc Inj 12/02/2011, 12/02/2011, 12/09/2011, 12/09/2011, 12/16/2011, 12/16/2011 Plan: Orders Placed This Encounter ??? METHYLPREDNISOLONE ACETATE 80 MG INJ ??? LA DRAIN/INJECT LARGE JOINT/BURSA ??? meloxicam (MOBIC) 7.5 MG tablet Sig: Take 1 Tab by mouth once daily. for 7 days to treat flare ups of pain and inflammation Repeat as needed or call Dr Smith if not better Dispense: 30 Tab Refill: 6 ??? methylPREDNISolone acetate (DEPO-MEDROL) 80 MG/ML injection Si mL by Intra-articular route once for 1 dose. Dispense: 1 mL Refill: 0 Plan Depo 80 right knee Zoloft 50-100 mg daily Gabapentin 600-1200 mg nightly Tylenol 1 gm tid Tramadol 100 mg tid Prednisone to 5-10 mg daily avoid as able Methotrexate 20 mg weekly Folic acid 1 mg daily Sinemet CR 50/250 bid F/U: Return in about 8 weeks (around 10/03/2013). Copy Dr Cathie Wilkerson NeuroOpth, Dr Reaves Neurology [facility] Rheumatology Ultrasound Clinic [facility] [address] [place] [address] Ultrasound apparatus: MeterHero MyLab5 with a LA435 or LA523 probe set at 10-18 mHz as clinically indicated based on site for visualization of the needle and patient anatomy Procedure: right knee injection mild effusion Mod DJD change PF noted Depo 80 mg given right knee Findings: After ultrasound evaluation of the patient anatomy a 21 gauge needle was introduced through a sterile field using no touch technique under direct ultrasound visualization to the site appropriate for injection and or aspiration as indicated in the notes and on saved Ultrasound images. The procedure was tolerated well without any significant complications. Images from the procedure are stored on site and available for reproduction. Call us directly with any questions Casper Smith MD Office [phone] Back line [phone] ING MACHINE ADJUSTER documented in this encounter Plan of Treatment Not on file documented as of this encounter Visit Diagnoses Diagnosis Rheumatoid arthritis(714.0) ([facility])- Primary Rheumatoid arthritis Right knee pain Pain in joint, lower leg documented in this encounter Care Teams Cosmetic Counselor Relationship Specialty Start Date End Date Tim Altman MD PCP - General 10/18/10 [place] [address] [place] [phone] Orthopedic Surgery 05/02/11 [place] [address] [place] [address] Rheumatology 08/20/11 documented as of this encounter
--- OUTSIDE RECORDS SUMMARY | 2024-06-17 14:44 | XMS_ITS | Encounter Summary ---
Author Organization [facility] Address [address] [place], [place] [address] [address] Care Team Providers Care Firmware Software Verification Engineer Name Role Phone Tim Altman MD Primary Care Provider [phone] Vani Waldrop MD Unavailable [phone] Casper Smith MD Unavailable Unavailable Encounter Details Date Type Department Care Team (Late st Contact Info) Description 09/28/2013 Orders Only [facility] - Rheumatology [address] [place] [address] [phone] Claudia Cox, LAWYER PROBATE-DIRECTOR OF GRADUATE MEDICAL EDUCATION [address] [id number] Rheumatoid arthritis (HCC) Social History Tobacco Use Types Packs/Day Years [...] Diagnosis Rheumatoid arthritis(714.0) (HCC)- Primary Rheumatoid arthritis documented in this encounter Care Teams Firmware Software Verification Engineer Relationship Specialty Start Date End Date Tim Altman MD PCP - General 10/18/10 [place] [address] [phone] Orthopedic Surgery 05/02/11 [place] [address] [place] [address] [facility] 08/20/11 documented as of this encounter
--- OUTSIDE RECORDS SUMMARY | 2024-06-17 14:44 | XMS_ITS | Encounter Summary ---
Author Organization [facility] Address [address] [place] [address] [place] [address] Care Team Providers Care Sales And Marketing Executive Name Role Phone Tim Altman MD Primary Care Provider [phone] Vani Waldrop MD Unavailable [phone] Casper Smith MD Unavailable Unavailable Reason for Visit * Reason Onset Date Comments Billing Question 10/17/2013 Encounter Details Date Type Department Care Team (Late st Contact Info) Description 10/17/2013 Telephone [facility] - Family Medicine [address] [place] [phone] Casper Smith MD Billing Question Social History Tobacco Use Types Packs/Day [...] * Telephone Encounter - Virginia Geller - 10/25/2013 4:28 PM CDT Tried to call patient no answer * Telephone Encounter - Hannah Edmondson - 10/17/2013 9:27 AM CDT Pt received a bill for 2,ooo for her infusion , wants to talk to virginia documented in this encounter Plan of Treatment Not on file documented as of this encounter Visit Diagnoses Not on filedocumented in this encounter Care Teams Sales And Marketing Executive Relationship Specialty Start Date End Date Tim Altman MD PCP - General 10/18/10 [place] [address] [place] [address] Orthopedic Surgery 05/02/11 [place] [address] [place] [phone] Rheumatology 08/20/11 documented as of this encounter
--- OUTSIDE RECORDS SUMMARY | 2024-06-17 14:44 | XMS_ITS | Encounter Summary ---
Author Organization [facility] Address [address] [place], [place] [address] [address] Care Team Providers Care Door Furring Installer Name Role Phone Tim Altman MD Primary Care Provider [phone]- [phone] Vani Waldrop MD Unavailable [phone] Casper Smith MD Unavailable Unavailable Encounter Details Date Type Department Care Team (Late st Contact Info) Description 09/29/2013 Orders Only [facility] - Rheumatology [address] [place] [address] Casper Smith MD Encounter for long-term (current) use of other medications ; Lipid screening Social History Tobacco Use Types Packs/Day Years [...] Procedure Name Priority Date/Time Associated Diagnosis Comments LIPID PROFILE W TCHOL/HDL Routine 09/30/2013 8:00 PM CDT Lipid screening CBC W AUTO DIFFERENTIAL Routine 09/30/2013 8:00 PM CDT Encounter for long-term (current) use of other medications COMPREHENSIVE METABOLIC PANEL Routine 09/30/2013 8:00 PM CDT Encounter for long-term (current) use of other medications documented in this encounter Results * (ABNORMAL) LIPID PROFILE W TCHOL/HDL (PO REF LAB) (09/30/2013 8:00 PM CDT) Cholesterol 230(H) 125 - 200 mg/dL [facility] Comment: Test Performed at: [facility] [address] [place], [place] ??[phone] MUKUND GILES DO,MPH HDL Cholesterol 84 > [...] Casper Smith MD [facility] Organization Address City/State/ZIP Co de Phone Number [facility] [address] [place] [address] * (ABNORMAL) COMPREHENSIVE METABOLIC PANEL (09/30/2013 8:00 PM CDT) Glucose 103(H) 65 - 99 mg/dL [facility] Comment: ? Fasting reference interval BUN 18 7 - 25 mg/dL [facility] Creatinine 0.92 0.50 - 1.05 mg/dL [facility] Comment: For patients >49 years of age, the reference limit for Creatinine is approximately 13% higher for people identified as -Barb[place]. eGFR by MDRD 68 > OR = 60 mL/min/1 .73m2 [facility] eGFR by MDRD 79 > OR = 60 mL/min/1 .73m2 [facility] BUN/Creatinine Ratio NOT APPLICABLE 6 - 22 (calc) [facility] Sodium 141 135 - 146 mmol/L [facility] Potassium 4.1 3.5 - 5.3 mmol/L [facility] Chloride 103 98 - 110 mmol/L [facility] CO2 27 19 - 30 mmol/L [facility] Calcium 9.6 8.6 - 10.4 mg/dL [facility] Protein Total 6.7 6.1 - 8.1 g/dL [facility] Albumin 4.1 3.6 - 5.1 g/dL [facility] Globulin Total 2.6 1.9 - 3.7 g/dL (calc) [facility] Albumin/Globulin Ratio 1.6 1.0 - 2.5 (calc) [facility] Bilirubin Total 0.6 0.2 - 1.2 mg/dL [facility] Alkaline Phosphatase 61 33 - 130 U/L [facility] AST 50(H) 10 - 35 U/L [facility] ALT 11 6 - 29 U/L [facility] Comment: Test Performed at: [facility] [place], [place] ??[phone] MUKUND GILES DO,MPH Blood specimen (specimen) BLOOD SPECIMEN / Unknown 09/30/2013 4:24 AM CDT Casper Smith MD LAB - CHEMISTRY [facility] Performing Organization Address City/State/[facility] Co de Phone Number [facility] [address] [place] [address] * (ABNORMAL) CBC W AUTO DIFFERENTIAL (09/30/2013 8:00 PM CDT) White Blood Cell Count 6.4 3.8 - 10.8 Thousand/u L [facility] RBC 3.90 3.80 - 5.10 Million/uL [facility] Hemoglobin 13.0 11.7 - 15.5 g/dL [facility] Hematocrit 39.0 35.0 - 45.0 % [facility] MCV 100.0 80.0 - 100.0 fL [facility] MCH 33.4(H) 27.0 - 33.0 pg [facility] MCHC 33.4 32.0 - 36.0 g/dL [facility] RDW 15.0 11.0 - 15.0 % [facility] Platelet Count 213 140 - 400 Thousand/u L [facility] Neutrophil Absolute 3034 1500 - 7800 cells/uL [facility] Lymphocytes Absolute 2701 850 - 3900 cells/uL [facility] Absolute Monocytes 582 200 - 950 cells/uL [facility] Eosinophils Absolute 70 15 - 500 cells/uL [facility] Basophils Absolute 13 0 - 200 cells/uL [facility] Granulocytes % 47.4 % [facility] Lymphocytes % 42.2 % [facility] Monocytes % 9.1 % [facility] Eosinophils % 1.1 % [facility] Basophils % 0.2 % [facility] Comment: Test Performed at: [facility] [place], [place] ??[phone] MUKUND GILES DO,MPH Blood specimen (specimen) BLOOD SPECIMEN / Unknown 09/30/2013 4:24 AM CDT Casper Smith MD LAB - HEMATOLOGY ORD ERABLES [facility] [address] [place] [address] documented in this encounter Visit Diagnoses Diagnosis Encounter for long-term (current) use of other medications- Primary Lipid screening Screening for lipoid disorders documented in this encounter Care Teams Door Furring Installer Relationship Specialty Start Date End Date Tim Altman MD PCP - General 10/18/10 [place] [address] [place] [address] Orthopedic Surgery 05/02/11 [place] [address] [place] [address] Rheumatology 08/20/11 documented as of this encounter
--- OUTSIDE RECORDS SUMMARY | 2024-06-17 14:44 | XMS_ITS | Encounter Summary ---
Author Organization [facility] Address [address] [place], [place] [address] [address] Care Team Providers Care Clean Up Helper Banquet Name Role Phone Tim Altman MD Primary Care Provider [phone] Vani Waldrop MD Unavailable [phone] Casper Smith MD Unavailable Unavailable Encounter Details Date Type Department Care Team (Late st Contact Info) Description 09/30/2013 Orders Only [facility] - Rheumatology [address] [place] [id number] Casper Smith MD Social History Tobacco Use [...] Procedure Name Priority Date/Time Associated Diagnosis Comments REF LAB-REFLEX TEST IN [facility] 09/30/2013 8:00 PM CDT documented in this encounter Results * PO REF LAB-REFLEX TEST IN [facility] (09/30/2013 8:00 PM CDT) Reflex [facility]Q [facility] Comment: OUR RECORDS INDICATE THAT YOU HAVE ORDERED LIPID PANEL (REFL) ORDER CODE 54918. ??THIS IS A REFLEX-SPECIFIC ORDER CODE. HOWEVER, ONLY THE INITIAL TEST WAS PERFORMED, BECAUSE WE DO NOT HAVE A REFLEX TESTING AUTHORIZATION FORM ON FILE FOR YOU. ??TO PERFORM A REFLEX TEST WE NEED YOU TO SIGN AN AUTHORIZATION FORM SPECIFYING (A) THE REFLEXIVE TEST AND (B) THE RESULTS THAT WILL TRIGGER THE PERFORMANCE OF THE REFLEX TEST. ??PLEASE CONTACT THE TESTING DIRECTOR AT [facility] IF YOU WOULD LIKE ADDITIONAL TESTING DONE OR CONTACT YOUR MASSAGE COORDINATOR TO OBTAIN A COPY OF THE REFLEXIVE TESTING AUTHORIZATION FORM. ? IF YOU WOULD PREFER A NON-REFLEXIVE VERSION OF LIPID PANEL (REFL), PLEASE ORDER THE NON REFLEX LIPID PANEL, ORDER CODE 7600. NO COLLECTION DATE RECEIVED. WE HAVE USED THE DATE THE SPECIMEN WAS RECEIVED BY THIS LABORATORY THE COLLECTION DATE. IF THIS IS INCORRECT, PLEASE CONTACT CLIENT SERVICES. PHONE NUMBER: [phone] Test Performed at: [facility] [address] ??[phone] MUKUND GILES DO,MPH 09/30/2013 4:2 4 AM CDT Casper Smith MD LAB - CHEMISTRY CHELI [facility] Organization Address City/State/ZIP Co de Phone Number [facility] [phone] [place] [address] documented in this encounter Visit Diagnoses Not on filedocumented in this encounter Care Teams Clean Up Helper Banquet Relationship Specialty Start Date End Date Tim Altman MD PCP - General 10/18/10 [place] [address] [place] [address] Orthopedic Surgery 05/02/11 [place] [address] [place] [address] Rheumatology 08/20/11 documented as of this encounter
--- OUTSIDE RECORDS SUMMARY | 2024-06-17 14:44 | XMS_ITS | Encounter Summary ---
Author Organization [facility] Address [facility] [place] [address] Care Team Providers Care Hand Laminator Name Role Phone Tim Altman MD Primary Care Provider [phone] Vani Waldrop MD Unavailable [phone] Casper Smith MD Unavailable Unavailable Reason for Visit * Reason Comments Imm Inj bilateral euflexxa Encounter Details Date Type Department Care Team (Late st Contact Info) Description 11/30/2013 12:15 PM CDT Office Visit [facility] - Rheumatology [address] [place] [address] Casper Smith MD DJD (degenerative joint disease) of knee (Primary Dx) Social History Tobacco Use Types Packs/Day Years Used Date Smoking Tobacco: Never Smokeless Tobacco: Never Alcohol Use Standard Drinks/Week Comments No 0 (1 standard drink = 0.6 oz pur e alcohol) Sex and Gender Information Value Date Recorded Sex Assigned at Not on file Gender Identity Not on file Sexual Orientation Not on file documented as of this encounter Progress Notes * Casper Smith MD - 11/30/2013 4:16 PM CDT [address] [address] Ultrasound guided viscosupplement injection in knee(s) to minimize pain and to optimize treatment effect by ensuring intraarticular injection and minimizing trauma to adjacent structures. Chief Complaint Patient presents with ??? Imm Inj bilateral euflexxa IMP: DJD knees with persistent pain despite medical therapy as outlined in previous notes Estimated Body mass index is 40.47 kg/(m^2) as calculated from the following: Height as of 11/21/13: 5' 4.5 (1.638 m). Weight as of 11/21/13: 239 lb 6.4 oz(108.591 kg). Ultrasound apparatus//Settings: US probe set at 7.5-18 mg Hz as clinically indicated for optimal needle visualization and patient anatomy Computational Scientist views of the knee were reviewed prior to injection to plan the injection site and route. Findings: Moderate effusion and DJD of the patellofemoral joint Procedure: Bilateral knee injection with Euflexxa. Local anesthesia of the skin and or subcutaneoustissues was administered under US visualization then the needle was introduced through anesthetizedand sterilized skin into the knee using no touch technique with direct in line ultrasound visualization. Injection and or aspiration was performed as indicated in the notes and on saved Ultrasound images. Archived images of the needle in situ are saved and are available on request. The procedure was well tolerated without problems. Patient instructed to rest knee today and return to normal activities tomorrow. Further weekly injections are planned as clinically indicated. Repeat cycles of treatment every six months are anticipated if the response to this therapy is good. Casper Smith MD \ documented in this encounter Plan of Treatment Not on file documented as of this encounter Visit Diagnoses Diagnosis DJD (degenerative joint disease) of knee- Primary Osteoarthrosis, unspecified whether generalized or localized, lower leg documented in this encounter Care Teams Hand Laminator Relationship Specialty Start Date End Date Tim Altman MD PCP - General 10/18/10 [place] [address] [place] [address] Orthopedic Surgery 05/02/11 [place] [address] [place] [address] Rheumatology 08/20/11 documented as of this encounter
--- OUTSIDE RECORDS SUMMARY | 2024-06-17 14:44 | XMS_ITS | Encounter Summary ---
Author Organization [facility] Address [address] [place], [place] [address] [address] Care Team Providers Care Manager Commodities Name Role Phone Tim Altman MD Primary Care Provider [phone] Vani Waldrop MD Unavailable [phone] Casper Smith MD Unavailable Unavailable Reason for Visit * Reason Onset Date Comments Question 06/21/2013 General Encounter Details Date Type Department Care Team (Late st Contact Info) Description 06/21/2013 Telephone [facility] - Rheumatology [address] [place] [address] [id number] Casper Smith MD Question; Social History Tobacco Use Types Packs/Day Years [...] encounter Miscellaneous Notes * Telephone Encounter - Daiana Nation MA - 06/21/2013 9:57 AM CST Please call patient to let her know what you have found out about her ins co and when she can get in to have infusion done. NEYMAN LEVEL ACOUSTIC ANALYST documented in this encounter Plan of Treatment Not on file documented as of this encounter Visit Diagnoses Not on filedocumented in this encounter Care Teams Manager Commodities Relationship Specialty Start Date End Date Tim Altman MD PCP - General 10/18/10 [place] [address] [place] [address] Orthopedic Surgery 05/02/11 [place] [address] [place] [address] [facility] 08/20/11 documented as of this encounter
--- OUTSIDE RECORDS SUMMARY | 2024-06-17 14:44 | XMS_ITS | Encounter Summary ---
Author Organization [facility] Address [address] [place] [address] [place] [address] Care Team Providers Care Braided Band Assembler Name Role Phone Tim Altman MD Primary Care Provider [phone] Vani Waldrop MD Unavailable [phone] Casper Smith MD Unavailable Unavailable Reason for Visit * Treatment (Routine) - Closed Specialty Diagnoses / Procedures Referred By Dariela nettles Referred To Contact Infusion Therapy Nurse Diagnoses Rheumatoid arthritis(714.0) ([facility]) Procedures NC INJECTION TOCILIZUMAB 1 MG Casper Smith MD Referral ID Status Reason Start Date Expiration Date Visits Re quested Visits Authorized [id number] Closed 09/07/2013 03/06/2014 1 6 Encounter Details Date Type Department Care Team (Latest Contact Info) Description 09/29/2013 1:14 PM CDT - 09/29/2013 11:59 PM CDT Hospital Encounter [facility] - Rheumatology [address] [place] [address] Casper Smith MD Discharge Disposition: Home or [...] Sign Reading Time Taken Comments Blood Pressure 134/75 09/29/2013 1:55 PM CDT Pulse 84 09/29/2013 1:55 PM CDT Temperature 36.8 ??C (98.2 ??F) 09/29/2013 1:55 PM CD T Respiratory Rate 16 09/29/2013 1:55 PM CDT Oxygen Saturation - - Inhaled Oxygen Concentration - - Weight 106.6 kg (235 lb) 09/29/2013 1:55 PM CDT Height 162.6 cm (5' 4 ) 09/29/2013 1:55 PM CDT Body Mass Index 40.34 09/29/2013 1:55 PM CDT documented in this encounter Discharge Instructions * Discharge Instructions* Antoine Mae RN - 09/29/2013 1:50 PM CDT [facility] Post Infusion instructions You have received [...] rash or breathing problems please call your [facility] Rheumatology physician for further instructions. While most problems that occur around the time of an infusion are very mild and not dangerous, they should not be ignored. Thursday through Thursday 9-5 call the office at [phone] After hours or on the weekend call the exchange at [phone] If you have had lab work done [...] chosen [facility] as your provider. Antoine Mae RN * Discharge Instructions* Document, Scanned - 10/11/2013 9:35 PM CDT documented in this encounter Medications [...] azaTHIOprine (IMURAN) 50 MG tabletIndications:Rhe umatoid arthritis(714.0) (HCC) Take 2 Tabs by mouth once daily. 60 Tab 6 07/28/2013 Calcium Carbonate-Vit D-Min (CALCIUM 1200 PO) Take by mouth daily. Cyanocobalamin (B-12) 1000 MCG TBCR Take by mouth daily. metoprolol tartrate IR (LOPRESSOR) 25 MG tablet Take 25 mg by mouth 2 times daily. omeprazole (PRILOSEC) 40 MG capsule Take 40 mg by mouth 2 times daily. carbidopa-levodopa CR (SINEMET CR) 50-200 MG tablet TAKE ONE TABLET BY MOUTH TWICE A DAY 60 Tab 2 09/03/2013 12/12/2013 folic acid (FOLVITE) 1 MG tabletIndications:PMR (polymyalgia rheumatica) (HCC) Take 2 Tabs by mouth once daily. 60 Tab 12 11/15/2012 12/19/2013 gabapentin (NEURONTIN) 600 MG tablet TAKE ONE TABLET BY MOUTH IN THE MORNING TWO IN THE EVENING 90 Tab 10 05/30/2013 04/26/2014 gabapentin (NEURONTIN) 600 MG tabletIndications:Fib romyalgia Take 1-2 Tabs by mouth 3 times daily. 90 Tab 11 11/15/2012 11/21/2013 methotrexate 2.5 MG tablet TAKE 8 TABS BY MOUTH EVERY 7 DAYS. 32 Tab 3 09/22/2013 01/16/2014 predniSONE (DELTASONE) 5 MG tabletIndications:PMR (polymyalgia rheumatica) (HCC) Take 1-2 Tabs by mouth once daily. Pt takes 1/2 tab once daily 60 Tab 6 07/04/2013 11/02/2013 sertraline (ZOLOFT) 100 MG tabletIndications:Fib romyalgia Take [...] TIMES DAILY WITH TYLENOL 180 Tab 3 04/29/2013 10/24/2013 documented as of this encounter Progress Notes * Antoine Mae RN - 09/29/2013 2:21 PM CDT AM[facility] Mcneil [id number] 09/29/2013 Diagnosis: Rheumatoid arthritis [714.0]. Patient questionnaire results Health Assessment Questionnaire MHAQ: 3.7 Pain: 9 Global: 8.3 Rapid 3: 21 Sleep: GI: 3 Fatigue:9.5 BP 134/75 Pulse 84 Temp 98.2 ??F Resp 16 Wt 106.595 kg (235 lb) BMI 40.32 kg/m2 @ MEDICATIONS FOR CURRENT ENCOUNTER: 1x 200mg ?? SCHEDULED MEDICATIONS: ?? Tocilizumab 440 mg in 0.9% NaCl 0.9 % IVPB, Intravenous, Once ?? CONTINUOUS MEDICATIONS: PRN MEDICATIONS: ?? Number of 24 gauge .75 inch placed in Right hand ?? 1 attempt(s). Patient monitored throughout procedure. Tolerated well? Yes Next treatment? 4wk Antoine Mae RN documented in this encounter Miscellaneous Notes * Miscellaneous Scans - Document, Scanned - 10/05/2013 11:03 PM CDT documented in this encounter Plan of Treatment Not on file documented as of this encounter Visit Diagnoses Diagnosis Rheumatoid arthritis(714.0) ([facility])- Primary Rheumatoid arthritis documented in this encounter Administered Medications Inactive Administered Medications - up to 3 most recent administrations Medication Order MAR Action Action Date Dose Rate Site Tocilizumab 440 mg in 0.9% NaCl 0.9 % IVPB 440 mg, at 100 mL/hr, Intravenous, ONCE, 1 dose, On Tram 09/29/13 at 1345 $ Given 09/29/2013 1:50 PM CDT 440 mg 100 mL/hr documented in this encounter Care Teams Braided Band Assembler Relationship Specialty Start Date End Date Tim Altman MD PCP - General 10/18/10 [place] [address] [place] [address] Orthopedic Surgery 05/02/11 [place] [address] [place] [address] Rheumatology 08/20/11 documented as of this encounter
--- OUTSIDE RECORDS SUMMARY | 2024-06-17 14:44 | XMS_ITS | Encounter Summary ---
Author Organization [facility] Address [facility] [place] [address] Care Team Providers Care Analytical Data Scientist Name Role Phone Tim Altman MD Primary Care Provider Vani Waldorp MD Unavailable [phone] Casper Smith MD Unavailable Unavailable Reason for Visit * Reason Comments Edema both legs swollen, p ainful & red following infusion & worsening, x 3 weeks Swelling Hand both hands also swol sai Encounter Details Date Type Department Care Team (Late st Contact Info) Description 11/21/2013 9:20 AM CDT Office Visit [facility] - Family Medicine [address] [place] [address] Karly Snyder, ENGLISH TUTOR-HEADER MACHINE OPERATOR [address] [address] Rheumatoid arthritis (HCC) (Primary Dx) Social History Tobacco Use Types [...] Sign Reading Time Taken Comments Blood Pressure 118/76 11/21/2013 9:33 AM CDT Pulse 86 11/21/2013 9:33 AM CDT Temperature - - Respiratory Rate - - Oxygen Saturation - - Inhaled Oxygen Concentration - - Weight 108.6 kg (239 lb 6.4 oz) 11/21/2013 9:33 AM CDT Height 163.8 cm (5' 4.5 ) 11/21/2013 9:33 AM CDT Body Mass Index 40.46 11/21/2013 9:33 AM CDT documented in this encounter Patient Instructions * Patient Instructions* Karly Snyder APRN-CNP - 11/21/2013 10:10 AM CDT -Continue Prednisone 40mg daily x 2 days, 30mg x 3 days, 20mg x 3 days, 10mg x 3 days and then stop documented in this encounter Progress Notes * Karly Snyder APRN-CNP - 11/21/2013 9:49 AM CDT SUBJECTIVE: Lexi Mcneil is a 58 y.o. female with Chief Complaint Patient presents with ??? Edema both legs swollen, painful & red following infusion & worsening, x 3 weeks ??? Swelling Hand both hands also swollen HPI: pt presents today with bilateral leg and knee edema. Pt spoke with Dr Smith last night and she was prescribed prednisone 40 mg po. Pt reports it has been present since her infusion of Actemra. Ptalso reports when checking out after her infusion she broke out in hives and felt hot. Pt said she was given an antihistamine before leaving. Pt reports she has not felt well since the infusion. Pt said she was in the grocery store yesterday and felt hot, dizzy, and nauseous. Pt reports she has some tingling to left arm and went to chiropractor on Thursday and reports that it helped. Pt rates herpain in her knees a 9.5/10, described as constant ache, pt reports when her pain is severe it givesher a headache. Pt denies CP, SOB, dizziness, n/v/d at this time. Patient Active Problem List Diagnosis Date Noted [...] temporary response to steroid injection in past. ??? Restless legs syndrome (RLS) 05/15/2011 05/15/2011 will start Simenet ??? DJD (degenerative joint disease) of knee 10/18/2010 occasional flare ??? Insomnia 10/18/2010 ??? 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 Marital Status: Spouse [...] Hypertension Mother ??? Coronary Artery Disease Mother Health Maintenance Topic Date Due ??? Td/ Tdap Vaccine/ Adult 1973 ??? Pap Smear Q3 Yr 08/15/1975 ??? Mammogram Q2 Yr 1994 ??? Colon Cancer Screening Q10 Yr 2004 ??? Dyslipidemia Screening Q5 Yr 09/30/2018 ??? Hepatitis C Screening Once Completed Immunization History Administered Date(s) Administered ??? Methylprednisolone 40mg 01/23/2011 ??? Methylprednlsolone 80mg 12/09/2011, 11/15/2012, 02/28/2013, 07/04/2013, 08/09/2013 ??? PPD 02/28/2013 ??? Synvisc Inj 12/02/2011, 12/02/2011, 12/09/2011, 12/09/2011, 12/16/2011, 12/16/2011 Review of Systems: (negative responses are normal text, positives are highlighted) GENERAL: fever, chills, sweats, weight loss >10, weight gain >10, fatigue EENT Blurred vision, hearing changes, ringing, sinus drainage,congestion GI: nausea, vomiting, abdominal pain, constipation, GERD, rectal bleed, diarrhea HEART: chest pain, palpitations LUNGS: shortness of breath, cough, wheezing : nocturia, dysuria, frequency, urgency, hematuria SKIN: rash, itching, dry skin MS: muscle weakness, muscle tenderness, joint pain, edema 1+ to BLE NEURO: Headaches, dizziness, confusion, numbness, tingling PSYCH: Insomnia, anxiety, depression OBJECTIVE: BP 118/76 Pulse 86 Wt 108.591 kg (239 lb 6.4 oz) BMI 40.47 kg/m2 Wt Readings from Last 3 Encounters: 11/21/13 108.591 kg (239 lb 6.4 oz) 11/02/13 106.595 kg (235 lb) 09/29/13 106.595 kg (235 lb) General: alert, cooperative, no distress Head: NCAT w/o lesions or tenderness Eyes: Not examined Ears: bilateral TM's and external ear canals normal Heart: regular rate and rhythm, S1, S2 normal, no murmur, click, rub or gallop Lungs: clear to auscultation bilaterally Abdomen: soft without mass, non-tender, with normal bowel sounds Musculoskeletal 1+ pitting edema to bilateral lower legs, non pitting to bilateral knees Skin: Skin color, texture, turgor normal. Redness noted to right upper extremity and to chest. Component Name 09/30/131999 WBC 6.4 RBC 3.90 HGB 13.0 HCT 39.0 MCV 100.0 MCH 33.4* MCHC 33.4 RDW 15.0 Component Name 09/30/131999 SODIUM 141 POTASSIUM 4.1 CHLORIDE 103 CO2 27 BUN 18 CREATININE 0.92 GLUCOSE 103* CALCIUM 9.6 ALBUMIN 4.1 ALKPHOS 61 ALT 11 AST 50* TBIL 0.6 TPROT 6.7 EGFR 68 Component Name 09/30/131999 CHOL 230* TRIG 171* HDL 84 LDLCALC 112 Component Name 09/30/13199907/05/13 1500 03/28/13 1100 EGFR 68 77 79 No results found for this basename: HGBA1C:3 in the last 52316 hours No results found for this basename: MICROALBCREA:3 in the last 43930 hours ASSESSMENT/PLAN: 1. Rheumatoid arthritis predniSONE (DELTASONE) 20 MG tablet, discussed with Dr. Smith. To continue prednisone taper and will see Dr. Smith in one month. Hold Actemra. Orders Placed This Encounter ??? predniSONE (DELTASONE) 20 MG tablet Medications Discontinued During This Encounter Medication Reason ??? meloxicam (MOBIC) 7.5 MG tablet Discontinued previously ??? gabapentin (NEURONTIN) 600 MG tablet Discontinued previously Current Outpatient Prescriptions Medication Sig Dispense Refill ??? predniSONE (DELTASONE) 20 MG tablet 40mg daily x 2 days, 30mg x 3 days, 20mg x 3 days, 10mg x 3days and then stop 20 Tab 0 ??? ondansetron, disintegrating, (ZOFRAN ODT) 4 MG tablet Take 4 mg by mouth every 6 hours as needed. Allow tablet to dissolve on the tongue ??? meloxicam (MOBIC) 7.5 MG tablet Take 1-2 Tabs by mouth once daily. for 7 days to treat flare ups of pain and inflammation Repeat as needed or call Dr Smith if not better 30 Tab 6 ??? traMADol (ULTRAM) 50 MG tablet TAKE TWO TABLETS BY MOUTH THREE TIMES DAILY WITH TYLENOL 180 Tab4 ??? tocilizumab 20 MG/ML in NaCl 0.9 % 100 mL Pt to receive IV infusion 440 mg Actemra/250cc 0.9%normal saline per Actemra practice. Patient will revieve IV every 4 weeks for 12 months unless furtherorders received from Dr. Smith. Order will in 1 year. ??? methotrexate 2.5 MG tablet TAKE 8 TABS BY MOUTH EVERY 7 DAYS. 32 Tab 3 ??? carbidopa-levodopa CR (SINEMET CR) 50-200 MG tablet TAKE ONE TABLET BY MOUTH TWICE A DAY 60 Tab2 ??? azaTHIOprine (IMURAN) 50 MG tablet Take 2 Tabs by mouth once daily. 60 Tab 6 ??? gabapentin (NEURONTIN) 600 MG tablet TAKE ONE TABLET BY MOUTH IN THE MORNING TWO IN THE [id number] Tab 10 ??? folic acid (FOLVITE) 1 MG tablet Take 2 Tabs by mouth once daily. 60 Tab 12 ??? sertraline (ZOLOFT) 100 MG tablet Take 1 Tab by mouth once daily. 30 Tab 12 ??? acetaminophen (TYLENOL) 500 MG tablet Take [...] (CALCIUM 1200 PO) Take by mouth daily. PT INSTRUCTIONS: Patient Instructions -Continue Prednisone 40mg daily x 2 days, 30mg x 3 days, 20mg x 3 days, 10mg x 3 days and then stop documented in this encounter Plan of Treatment Not on file documented as of this encounter Visit Diagnoses Diagnosis Rheumatoid arthritis(714.0) ([facility])- Primary Rheumatoid arthritis documented in this encounter Care Teams Analytical Data Scientist Relationship Specialty Start Date End Date Tim Altman MD PCP - General 10/18/10 [place] [id number] [place] [phone] Orthopedic Surgery 05/02/11 [place] [id number] [place] [phone] Rheumatology 08/20/11 documented as of this encounter
--- OUTSIDE RECORDS SUMMARY | 2024-06-17 14:44 | XMS_ITS | Encounter Summary ---
Author Organization [facility] Address [facility]3 [facility] [place] [address] Care Team Providers Care Soubrette Name Role Phone Tim Altman MD Primary Care Provider [phone] Vani Waldrop MD Unavailable [phone] Casper Smith MD Unavailable Unavailable Reason for Referral * Radiology Services - Closed Specialty Diagnoses / Procedures Referred By Dariela nettles Referred To Contact Diagnoses Hand pain, right Procedures US EXTREMITY NON VASCULAR RIGHT Casper Smith MD Referral ID Status Reason Start Date Expiration Date Visits Re quested Visits Authorized [id number] Closed 02/08/2014 08/07/2014 1 1 Reason for Visit * Reason Comments Swelling Hand Pain Knee left knee/thigh Encounter Details Date Type Department Care Team (Late st Contact Info) Description 02/08/2014 2:30 PM CDT Office Visit [facility] - Rheumatology [address] [place] [id number] Casper Smith MD Rheumatoid arthritis (HCC) (Primary Dx); DJD (degenerative joint disease) of knee; Fibromyalgia; Insomnia; Restless legs syndrome (RLS); High risk medications (not anticoagulants) long-term use; Hand pain, right Social History Tobacco Use [...] Sign Reading Time Taken Comments Blood Pressure 124/70 02/08/2014 2:38 PM CDT Pulse 80 02/08/2014 2:38 PM CDT Temperature - - Respiratory Rate - - Oxygen Saturation - - Inhaled Oxygen Concentration - - Weight 105.1 kg (231 lb 12.8 oz) 02/08/2014 2:38 PM CDT Height 165.1 cm (5' 5 ) 02/08/2014 2:38 PM CDT Body Mass Index 38.57 02/08/2014 2:38 PM CDT documented in this encounter Progress Notes * Casper Smith MD - 02/09/2014 2:12 PM CDT Subjective: Lexi Mcneil is a 58 y.o. female referred By Tim Altman for evaluation and treatment of chronic pain Who was seen today for Chief Complaint Patient presents with ??? Swelling Hand ??? Pain Knee left knee/thigh she remains on methotrexate and Actemra she had a good response to a course of Euflexxa in both knees. Today she has tender swelling at the base of the right thumb is not over the 1st compartment clinically despite the common diagnosis of acquired veins with wrist pain at the site it appears to be in a typical case and diagnostic ultrasound was performed. The right wrist showed minimal changes ofthe 1st compartment without associated tenderness it was the flexor carpi radialis tendon that was sore with signs of tendon enlargement and hyporeflectivity as well as a tendon sheath effusion the cortisone shot was given and there was good immediate relief of pain despite considerable tenderness of the wrist after palpation of the FCR tendon during the diagnostic phase of the plan. She remains on DMARD therapy for RA and has persistent symptoms we may consider a different DMARD along with herActemra soon if she does not improve. CBC and CMP are routinely normal on this treatment Health Assessment Questionnaire MHAQ: 5 Pain: 8 Global: 8 Rapid 3: 21 GI: 4 Fatigue: 9 Patient Active Problem List Diagnosis [...] BY MOUTH DAILY 30 Tab 11 ??? carbidopa-levodopa CR (SINEMET CR) 50-200 MG tablet TAKE ONE TABLET BY MOUTH TWICE A DAY 60 Tab1 ??? traMADol (ULTRAM) 50 MG tablet TAKE TWO TABLETS BY MOUTH THREE TIMES DAILY WITH TYLENOL 180 Tab5 ??? predniSONE (DELTASONE) 20 MG tablet 40mg [...] MOUTH IN THE MORNING TWO IN THE [id number] Tab 10 ??? acetaminophen (TYLENOL) 500 MG [...] 1200 PO) Take by mouth daily. ??? tocilizumab 20 MG/ML in NaCl 0.9 % 100 mL Pt to receive IV infusion 440 mg Actemra/250cc 0.9%normal saline per Actemra practice. Patient will revieve IV every 4 weeks for 12 months unless furtherorders received from Dr. Smith. Order will in 1 year. No facility-administered medications prior to visit. Past [...] Coronary Artery Disease Mother Allergies as of 02/08/2014 - reviewed 11/21/2013 Allergen Reaction Noted ??? Amitriptyline 10/17/2010 ??? [...] addiction, suicide, insomnia, daytime sleepiness, Objective: BP: 124/70 Pulse: 80 Wt: 105.144 kg (231 lb 12.8 oz) BMI: 38.57 kg/m2 FiO2: Body mass index is 38.57 kg/(m^2). (negative exam findings are in normal text, positive findings are highlighted below) SJ=2 TJ=5 Nodules=0 GEN: anxious , confused , thin , obese, Cushingoid, ASSISTIVE DEVICE: bedside commode, cane, crutches, prosthesis, splint/brace, walker and wheelchair HEENT: [place] , cerumen , anisocoria, retinal, hemorrhage, thrush, [...] nodes, abn 1st CMC,Flexor tend, Finger Deformity: [place] neck/ Boutonniere/ Mallet finger, Ulnar deviation, Dupuytren's, [...] Diagnoses Name Primary? Rheumatoid arthritis Yes ??? DJD (degenerative joint disease) of knee ??? Fibromyalgia ??? Insomnia ??? Restless legs syndrome (RLS) ??? High risk medications (not anticoagulants) long-term use ??? Hand pain, right Immunization History Administered Date(s) Administered ??? Hyaluronan/Deriv Euflexxa 11/30/2013, 12/07/2013, 12/14/2013 ??? Methylprednisolone 20mg 02/08/2014 ??? Methylprednisolone 40mg 01/23/2011 ??? Methylprednlsolone 80mg 12/09/2011, 11/15/2012, 02/28/2013, 07/04/2013, 08/09/2013, 12/07/2013,12/14/2013 ??? PPD 02/28/2013 ??? Synvisc Inj 12/02/2011, 12/02/2011, 12/09/2011, 12/09/2011, 12/16/2011, 12/16/2011 Plan: Orders Placed This Encounter ??? US EXTREMITY NON VASCULAR RIGHT Standing Status: Future Number of Occurrences: 1 Standing Expiration Date: 02/08/2015 Order Specific Question: Exam to be performed? Answer: Per Radiologist protocol ??? METHYLPREDNISOLONE ACETATE 20 MG INJ ??? MD INJECT TENDON SHEATH/LIGAMENT ??? methylPREDNISolone Acetate (DEPO-MEDROL) 20 MG/ML injection Si mL by Intra-articular route once for 1 dose. Dispense: 1 mL Refill: 0 Plan Zoloft 50-100 mg daily Gabapentin 600-1200 mg nightly Tylenol 1 gm tid Tramadol 100 mg tid Methotrexate 20 mg weekly Actemra Folic acid 1 mg daily Sinemet CR 50/250 bid Meloxicam 15 mg loading dose then 7.5 mg daily for 7 days for flares Idalmis for any itching at infusion visits. diagnostic ultrasound right hand Depo-Medrol 20 mg right flexor carpi radialis tendon F/U: No Follow-up on file. Copy Dr Cathie Wilkerson NeuroOpth, Dr Reaves Neurology [facility] Rheumatology Ultrasound Clinic [facility] [address] Ultrasound apparatus: [employer] MyLab5 with a [id number] or [id number] probe set at 10-18 mHz as clinically indicated based on site for visualization of the needle and patient anatomy Procedure: Based on ultrasound examination and focal tenderness over the flexor carpi radialis tendon the distended tendon sheath was entered with a 27 gauge needle Depo-Medrol 20 mg was introduced along with 0.5 cc lidocaine see examination of hand and wrist Findings: After ultrasound evaluation of the patient [...] with any questions Casper Smith MD Office [phone] Back line [phone] documented in this encounter Miscellaneous Notes * Addendum Note - Casper Smith MD - 02/10/2014 4:26 PM CDTAddended by: CASPER SMITH on: 02/10/2014 04:26 PM Modules accepted: Orders documented in this encounter Plan of Treatment Not on file documented as of this encounter Results * US EXTREMITY NON [...] the diagnostic impression are recorded by the cuprous chloride helper under the direction of the attending physician [...] MD directly to discuss this case at [phone] or via [email or web address] at: [place]. Casper Smith MD ORDERABLES documented in this encounter Visit Diagnoses Diagnosis Rheumatoid arthritis(714.0) (HCC)- Primary Rheumatoid arthritis DJD (degenerative joint disease) of knee Osteoarthrosis, unspecified whether generalized or localized, lower leg Fibromyalgia Mylagia and myositis, unspecified Insomnia Insomnia, unspecified Restless legs syndrome (RLS) High risk medications (not anticoagulants) long-term use Encounter for long-term (current) use of other medications Hand pain, right Pain in limb Hand pain, right- Primary Pain in limb documented in this encounter Administered Medications Administered Medications Medication Order MAR Action Action Date Dose Rate Site Methylprednisolone 20mg Intraarticular Given 02/08/2014 20 mg Right Wrist documented in this encounter Care Teams Soubrette Relationship Specialty Start Date End Date Tim Altman MD PCP - General 10/18/10 [place] [id number] [place] [phone] Orthopedic Surgery 05/02/11 [place] [id number] [address] [place] [phone] Rheumatology 08/20/11 documented as of this encounter
--- OUTSIDE RECORDS SUMMARY | 2024-06-17 14:44 | XMS_ITS | Encounter Summary ---
Author Organization [facility] Address [facility] [place] [address] Care Team Providers Care Ground Defence Officer Name Role Phone Tim Altman MD Primary Care Provider [phone] Vani Waldrop MD Unavailable [phone] Casper Smith MD Unavailable Unavailable Reason for Visit * Reason Comments Rheumatoid Arthritis follow up. Had reac tion to Actemra today. Encounter Details Date Type Department Care Team (Late st Contact Info) Description 11/02/2013 12:30 PM CDT Office Visit [facility] - Rheumatology [address] [place] [id number] Casper Smith MD Rheumatoid arthritis (HCC) (Primary Dx); DJD (degenerative joint disease) of knee; Insomnia; High risk medications (not anticoagulants) long-term [...] Time Taken Comments Blood Pressure 143/81 11/02/2013 12:32 PM CDT Pulse 80 11/02/2013 12:32 PM CDT Temperature - - Respiratory Rate - - Oxygen Saturation - - Inhaled Oxygen Concentration - - Weight - - Height 163.8 cm (5' 4.5 ) 11/02/2013 12:32 PM CD T Body Mass Index - - documented in this encounter Progress Notes * Casper Smith MD - 11/02/2013 12:47 PM CDT Subjective: Lexi Mcneil is a 58 y.o. female referred By Tim Altman for evaluation and treatment of chronic pain Who was seen today for Chief Complaint Patient presents with ??? Rheumatoid Arthritis follow up. Had reaction to Actemra today. She seems to have improved with reduced small joint inflammation on MTX and Actemra She has persistent knee inflammation on right >left She had limited response to Synvisc in the past and will tryMeloxicam with a 15 mg loading dose then 7.5 daily She has had some issues with dizziness with NSAIds so we are hedging our bets with Viscosupplements HER knee xrays show mild DJD changes Her knees are consistently swollen and stiff so we are pushing all angles of treatment Health Assessment Questionnaire MHAQ: 4.3 Pain: 9.5 Global: 9.5 Rapid 3: 23.3 GI: 2.5 Fatigue: 9.5 Patient Active Problem List Diagnosis Date Noted [...] MOUTH IN THE MORNING TWO IN THE [id number] Tab 10 ??? gabapentin (NEURONTIN) 600 MG tablet Take 1-2 Tabs by mouth 3 times [...] 1200 PO) Take by mouth daily. ??? predniSONE (DELTASONE) 5 MG tablet Take 1-2 Tabs by mouth once daily. Pt takes 1/2 tab once daily 60 Tab 6 No facility-administered medications prior [...] Coronary Artery Disease Mother Allergies as of 11/02/2013 - reviewed 11/02/2013 Allergen Reaction Noted ??? Amitriptyline 10/17/2010 ??? [...] addiction, suicide, insomnia, daytime sleepiness, Objective: BP: 143/81 Pulse: 80 FiO2: There is no weight on file to calculate BMI. (negative exam findings are in normal text, positive findings are highlighted below) SJ=2 TJ=5 Nodules=0 GEN: anxious , confused , thin , obese, Cushingoid, ASSISTIVE DEVICE: bedside commode, cane, crutches, prosthesis, splint/brace, walker and wheelchair HEENT: [place] , cerumen , anisocoria, retinal, hemorrhage, thrush, [...] abn 1st CMC, Flexor tend, Finger Deformity: [place] neck/ Boutonniere/ Mallet finger, Ulnar deviation, Dupuytren's, [...] DJD (degenerative joint disease) of knee ??? Insomnia ??? High risk medications (not anticoagulants) long-term use Immunization History Administered Date(s) Administered ??? Methylprednisolone 40mg 01/23/2011 ??? Methylprednlsolone 80mg 12/09/2011, 11/15/2012, 02/28/2013, 07/04/2013, 08/09/2013 ??? PPD 02/28/2013 ??? Synvisc Inj 12/02/2011, 12/02/2011, 12/09/2011, 12/09/2011, 12/16/2011, 12/16/2011 Plan: Orders Placed This Encounter ??? meloxicam (MOBIC) 7.5 MG tablet Sig: Take 1-2 Tabs by mouth once daily. for 7 days to treat flare ups of pain and inflammation Repeat as needed or call Dr Smith if not better Dispense: 30 Tab Refill: 6 ??? meloxicam (MOBIC) 7.5 MG tablet Sig: Take 1-2 Tabs by mouth once daily. for 7 days to treat flare ups of pain and inflammation Repeat as needed or call Dr Smith if not better Dispense: 30 Tab Refill: 6 Plan Zoloft 50-100 mg daily Gabapentin 600-1200 mg nightly Tylenol 1 gm tid Tramadol 100 mg tid Methotrexate 20 mg weekly Actemra Folic acid 1 mg daily Sinemet CR 50/250 bid Meloxicam 15 mg loading dose then 7.5 mg daily for 7 days for flares Idalmis for any itching at infusion visits. Euflexxa sapna knees soon F/U: Return in about 4 months (around 03/05/2014). Copy Dr Cathie Wilkerson NeuroOpth, Dr Reaves Neurology documented in this encounter Plan of Treatment Not on file documented as of this encounter Visit Diagnoses Diagnosis Rheumatoid arthritis(714.0) (HCC)- Primary Rheumatoid arthritis DJD (degenerative joint disease) of knee Osteoarthrosis, unspecified whether generalized or localized, lower leg Insomnia Insomnia, unspecified High risk medications (not anticoagulants) long-term use Encounter for long-term (current) use of other medications documented in this encounter Care Teams Ground Defence Officer Relationship Specialty Start Date End Date Tim Altman MD PCP - General 10/18/10 [place] [id number] [place] [phone] Orthopedic Surgery 05/02/11 [place] [id number] [place] [phone] Rheumatology 08/20/11 documented as of this encounter
--- OUTSIDE RECORDS SUMMARY | 2024-06-17 14:44 | XMS_ITS | Encounter Summary ---
Author Organization [facility] Address [facility] [place] [address] Care Team Providers Care Box Lidder Name Role Phone Tim Altman MD Primary Care Provider [phone] Vani Waldrop MD Unavailable [phone] Casper Smith MD Unavailable Unavailable Reason for Visit * Reason Comments Pain Knee right is worse & swo llen. Pain goes down leg into foot Encounter Details Date Type Department Care Team (Late st Contact Info) Description 09/05/2013 11:00 AM CDT Office Visit [facility] - Rheumatology [address] [place] [address] [phone] Casper Smith MD Rheumatoid arthritis (HCC) (Primary [...] Sign Reading Time Taken Comments Blood Pressure 126/84 09/05/2013 11:19 AM CDT Pulse 80 09/05/2013 11:19 AM CDT Temperature - - Respiratory Rate - - Oxygen Saturation - - Inhaled Oxygen Concentration - - Weight 108.5 kg (239 lb 3.2 oz) 014 11:19 AM CDT Height 165.1 cm (5' 5 ) 09/05/2013 11:1 9 AM CDT Body Mass Index 39.8 09/05/2013 11:19 AM CDT documented in this encounter Progress Notes * Casper Smith MD - 09/05/2013 11:29 AM CDT Subjective: Lexi Mcneil is a 58 y.o. female referred By Tim Altman for evaluation and treatment of chronic pain Who was seen today for Chief Complaint Patient presents with ??? Pain Knee right is worse & swollen. Pain goes down leg into foot she is on methotrexate Azathioprine and is starting Actemra There was quite a To get consent for biologic therapy. For rheumatoid arthritis is quite active despite methotrexate and azathioprine so a trial of a biologic agwent now seems reasonable to the insurance company and to the patient CBC CMP routinely normal. Pain symptoms are terrible recently injected her right knee reviewed complicated pain medication regimen and she will try to get by with prednisone while we hope for Actemra response. Health Assessment Questionnaire MHAQ: 4 Pain: 9 Global: 9 Rapid 3: 22 GI: 2.5 Fatigue: 8.5 Patient Active Problem List Diagnosis Date Noted [...] 6 ??? predniSONE (DELTASONE) 5 MG tablet Take 1-2 Tabs by mouth once daily. Pt takes 1/2 tab once daily 60 Tab 6 ??? gabapentin (NEURONTIN) 600 MG tablet TAKE ONE TABLET BY MOUTH IN THE MORNING TWO IN THE HIGONLO05 Tab 10 ??? traMADol (ULTRAM) 50 MG tablet TAKE TWO TABLETS BY MOUTH THREE TIMES DAILY WITH TYLENOL 180 Tab3 ??? methotrexate 2.5 MG tablet TAKE 8 TABS BY MOUTH EVERY 7 DAYS. 32 Tab 4 ??? gabapentin (NEURONTIN) 600 MG tablet Take [...] 1200 PO) Take by mouth daily. ??? meloxicam (MOBIC) 7.5 MG tablet Take 1 Tab by mouth once daily. for 7 days to treat flare ups of pain and inflammation Repeat as needed or call Dr Smith if not better 30 Tab 6 Past Medical History Diagnosis Date ??? PMR [...] Coronary Artery Disease Mother Allergies as of 09/05/2013 - reviewed 09/05/2013 Allergen Reaction Noted ??? Amitriptyline 10/17/2010 ??? [...] addiction, suicide, insomnia, daytime sleepiness, Objective: BP: 126/84 Pulse: 80 Wt: 108.5 kg (239 lb 3.2 oz) BMI: 39.80 kg/m2 FiO2: Body mass index is 39.80 kg/(m^2). (negative exam findings are in normal text, positive findings are highlighted below) SJ=2 TJ=5 Nodules=0 GEN: anxious , confused , thin , obese, Cushingoid, ASSISTIVE DEVICE: bedside commode, cane, crutches, prosthesis, splint/brace, walker and wheelchair HEENT: CIRCLE , cerumen , anisocoria, retinal, hemorrhage, thrush, [...] abn 1st [facility], Flexor tend, Finger Deformity: [place] neck/ Boutonniere/ Mallet finger, Ulnar deviation, Dupuytren's, [...] DJD (degenerative joint disease) of knee ??? Restless legs syndrome (RLS) ??? Insomnia ??? High risk medications (not [...] avoid as able Methotrexate 20 mg weekly Actemra to start soon Prior authori=zation finally established after peer to peer Folic acid 1 mg daily Sinemet CR 50/250 bid F/U: Return in about 3 months (around 12/06/2013). Copy Dr Cathie Wilkerson NeuroOpth, Dr Reaves Neurology documented in this encounter Plan of Treatment Not on file documented as of this encounter Visit Diagnoses Diagnosis Rheumatoid arthritis(714.0) ([facility])- Primary Rheumatoid arthritis DJD (degenerative joint disease) of knee Osteoarthrosis, unspecified whether generalized or localized, lower leg Restless legs syndrome (RLS) Insomnia Insomnia, unspecified High risk medications (not anticoagulants) long-term use Encounter for long-term (current) use of other medications documented in this encounter Care Teams Box Lidder Relationship Specialty Start Date End Date Tim Altman MD PCP - General 10/18/10 [place] [address] [place] [phone] Orthopedic Surgery 05/02/11 [place] [address] [place] [phone] Rheumatology 08/20/11 documented as of this encounter
--- OUTSIDE RECORDS SUMMARY | 2024-06-17 14:44 | XMS_ITS | Encounter Summary ---
Author Organization [facility] Address [address] [place] [address] [place] [address] Care Team Providers Care Shredding Floor Equipment Operator Name Role Phone Tim Altman MD Primary Care Provider [phone] Vani Waldrop MD Unavailable [phone] Casepr Smith MD Unavailable Unavailable Reason for Visit * Reason Comments Refill Request Encounter Details Date Type Department Care Team (Late st Contact Info) Description 09/22/2013 Refill [facility] - Rheumatology [address] [place] [id number] Casper Smith MD Refill Request Social History [...] on filedocumented in this encounter Care Teams Shredding Floor Equipment Operator Relationship Specialty Start Date End Date Tim Altman MD PCP - General 10/18/10 [place] [address] [place] [phone] Orthopedic Surgery 05/02/11 [place] [address] [place] [address] Rheumatology 08/20/11 documented as of this encounter
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
--- OUTSIDE RECORDS SUMMARY | 2024-06-17 14:44 | XMS_ITS | Encounter Summary ---
Author Organization [facility] Address [address] [place] [address] [place] [address] Care Team Providers Care Senior Technical Manager Name Role Phone Tim Altman MD Primary Care Provider [phone] Vani Waldrop MD Unavailable [phone] Casper Smith MD Unavailable Unavailable Reason for Visit * Reason Onset Date Comments MEDICATION REFILL 02/08/2014 Encounter Details Date Type Department Care Team (Late st Contact Info) Description 02/08/2014 Refill [facility] - Rheumatology [address] [place] [address] [phone] Casper Smith MD MEDICATION REFILL Social History [...] * Telephone Encounter - Virginia Geller - 02/08/2014 4:09 PM CDT Patient caught me in the reyes and wants to know if you can send a refill for her prednisone to [place] [facility] [place] [facility] documented in this encounter Plan of Treatment Not on file documented as of this encounter Visit Diagnoses Diagnosis Rheumatoid arthritis(714.0) (HCC) Rheumatoid arthritis documented in this encounter Care Teams Senior Technical Manager Relationship Specialty Start Date End Date Tim Altman MD PCP - General 10/18/10 [place] [address] [place] [phone] Orthopedic Surgery 05/02/11 [place] [address] [place] [phone] Rheumatology 08/20/11 documented as of this encounter
--- OUTSIDE RECORDS SUMMARY | 2024-06-17 14:44 | XMS_ITS | Encounter Summary ---
Author Organization [facility] Address [address] [place] [address] [place] [address] Care Team Providers Care Obiee Lead Developer Name Role Phone Tim Altman MD Primary Care Provider [phone] Vani Waldrop MD Unavailable [phone] Casper Smith MD Unavailable Unavailable Reason for Visit * Reason Onset Date Comments Follow-up 07/28/2013 Encounter Details Date Type Department Care Team (Late st Contact Info) Description 07/28/2013 Telephone [facility] - Rheumatology [address] [place] [address] [phone] Casper Smith MD Follow-up Social History Tobacco [...] encounter Miscellaneous Notes * Telephone Encounter - Manasa Cabrera - 07/28/2013 11:39 AM CST Leave message for patient to call back CARE PHYSICAL THERAPIST * Telephone Encounter - Yeny Oro MA - 07/28/2013 11:17 AM CST Pt can start Azathioprine at pharmacy but needs an appt CARE PHYSICAL THERAPIST * Telephone Encounter - Yeny Oro MA - 07/28/2013 9:07 AM CST Patient called in. Both knees are still hurting. She was supposed to let doctor know. She is wanting to know what doctor would recommend to help. She cant get the remicade anymore since her insurancewont pay for it. She has tried heat and ice. It only works just for a little bit. She was over hereto seen doctor recently to have fluid taken off and cortisone shot. CARE PHYSICAL THERAPIST * Telephone Encounter - CabreraManasa - 07/28/2013 9:02 AM CST Patient called in. Both knees are still hurting. She was supposed to let doctor know. She is wanting to know what doctor would recommend to help. She cant get the remicade anymore since her insurancewont pay for it. She has tried heat and ice. It only works just for a little bit. She was over hereto seen doctor recently to have fluid taken off and cortisone shot. CARE PHYSICAL THERAPIST documented in this encounter Plan of Treatment Not on file documented as of this encounter Visit Diagnoses Diagnosis Rheumatoid arthritis(714.0) ([facility])- Primary Rheumatoid arthritis documented in this encounter Care Teams Obiee Lead Developer Relationship Specialty Start Date End Date Tim Altman MD PCP - General 10/18/10 [place] [address] [place] [address] Orthopedic Surgery 05/02/11 [place] [address] [place] [address] Rheumatology 08/20/11 documented as of this encounter
--- OUTSIDE RECORDS SUMMARY | 2024-06-17 14:44 | XMS_ITS | Encounter Summary ---
Author Organization [facility] Address [facility] [place] [address] Care Team Providers Care Computer Applications Developer Name Role Phone Tim Altman MD Primary Care Provider [phone] Vani Waldrop MD Unavailable [phone] Casper Smith MD Unavailable Unavailable Reason for Visit * Reason Comments Imm Inj bilateral euflexxa Pain Knee flared bilaterally w ith large swelling Encounter Details Date Type Department Care Team (Late st Contact Info) Description 12/14/2013 12:15 PM CDT Office Visit [facility] - Rheumatology [address] [place] [id number] Casper Smith MD DJD (degenerative joint [...] Progress Notes * Casper Smith MD - 12/14/2013 5:56 PM CDT [address] [address] Ultrasound guided viscosupplement injection in knee(s) to minimize pain and to optimize treatment effect by ensuring intraarticular injection and minimizing trauma to adjacent structures. Chief Complaint Patient presents with ??? Imm Inj bilateral euflexxa ??? Pain Knee flared bilaterally with large swelling IMP: DJD knees with persistent pain despite [...] for optimal needle visualization and patient anatomy Plodder Operator views of the knee were reviewed prior to injection to plan the injection site and route. Findings: Moderate joint effusions in both knees aspirated type 1-2 fluid from both sides Procedure: Bilateral knee injection with Euflexxa with Depo-Medrol 80 mg bilaterally after joint aspiration. Local anesthesia of the [...] localized, lower leg documented in this encounter Administered Medications Administered Medications Medication Order MAR Action Action Date Dose Rate Site Hyaluronan/Deriv Euflexxa Intraarticular Given 12/14/2013 2 mL See comments Methylprednlsolone 80mg Intraarticular Given 12/14/2013 80 mg See comments documented in this encounter Care Teams Computer Applications Developer Relationship Specialty Start Date End Date Tim Altman MD PCP - General 10/18/10 [place] [address] [place] [address] Orthopedic Surgery 05/02/11 [place] [address] [place] [phone] Rheumatology 08/20/11 documented as of this encounter
--- OUTSIDE RECORDS SUMMARY | 2024-06-17 14:44 | XMS_ITS | Encounter Summary ---
Author Organization [facility] Address [address] [place] [address] [place] [address] Care Team Providers Care Senior Industrial Engineer Name Role Phone Tim Altman MD Primary Care Provider [phone] Vani Waldrop MD Unavailable [phone] Casper Smith MD Unavailable Unavailable Reason for Visit * Reason Comments Refill Request Encounter Details Date Type Department Care Team (Late st Contact Info) Description 12/12/2013 Refill [facility] - Rheumatology [address] [place] [id number] Casper Smith MD Refill Request Social History [...] on filedocumented in this encounter Care Teams Senior Industrial Engineer Relationship Specialty Start Date End Date Tim Altman MD PCP - General 10/18/10 [place] [address] [place] [phone] Orthopedic Surgery 05/02/11 [place] [address] [place] [address] Rheumatology 08/20/11 documented as of this encounter
--- OUTSIDE RECORDS SUMMARY | 2024-06-17 14:44 | XMS_ITS | Encounter Summary ---
Author Organization [facility] Address [address] [place] [address] [place] [address] Care Team Providers Care Entry Level Name Role Phone Tim Altman MD Primary Care Provider [phone] Vani Waldrop MD Unavailable [phone] Casper Smith MD Unavailable Unavailable Reason for Visit * Reason Comments Refill Request Encounter Details Date Type Department Care Team (Late st Contact Info) Description 01/16/2014 Refill [facility] - Rheumatology [address] [place] [phone] Casper Smith MD Refill Request Social History [...] on filedocumented in this encounter Care Teams Entry Level Relationship Specialty Start Date End Date Tim Altman MD PCP - General 10/18/10 [place] [address] [place] [phone] Orthopedic Surgery 05/02/11 [place] [address] [place] [address] Rheumatology 08/20/11 documented as of this encounter
--- OUTSIDE RECORDS SUMMARY | 2024-06-17 14:44 | XMS_ITS | Encounter Summary ---
Author Organization [facility] Address [facility] [place] [address] Care Team Providers Care Director Of Event Marketing Name Role Phone Tim Altman MD Primary Care Provider [phone] Vani Waldrop MD Unavailable [phone] Casper Smith MD Unavailable Unavailable Reason for Visit * Reason Comments Refill Request Encounter Details Date Type Department Care Team (Late st Contact Info) Description 05/30/2013 Refill [facility] - Family Medicine [address] [place] [phone] Casper Smith MD Refill Request Social History [...] on filedocumented in this encounter Care Teams Director Of Event Marketing Relationship Specialty Start Date End Date Tim Altman MD PCP - General 10/18/10 [place] [address] [place] [phone] Orthopedic Surgery 05/02/11 [place] [address] [place] [address] Rheumatology 08/20/11 documented as of this encounter
--- OUTSIDE RECORDS SUMMARY | 2024-06-17 14:44 | XMS_ITS | Encounter Summary ---
Author Organization [facility] Address [address] [place] [address] [place] [address] Care Team Providers Care Heel Stainer Name Role Phone Tim Altman MD Primary Care Provider [phone] Vani Waldrop MD Unavailable [phone] Casper Smith MD Unavailable Unavailable Reason for Visit * Reason Onset Date Comments MEDICATION REFILL 11/30/2013 Encounter Details Date Type Department Care Team (Late st Contact Info) Description 11/30/2013 Refill [facility] - Rheumatology [address] [place] [phone] Casper Smith MD MEDICATION REFILL Social History [...] on filedocumented in this encounter Care Teams Heel Stainer Relationship Specialty Start Date End Date Tim Altman MD PCP - General 10/18/10 [place] [address] [place] [phone] Orthopedic Surgery 05/02/11 [place] [address] [address] Rheumatology 08/20/11 documented as of this encounter
--- OUTSIDE RECORDS SUMMARY | 2024-06-17 14:44 | XMS_ITS | Encounter Summary ---
Author Organization [facility] Address [facility] [place] [address] Care Team Providers Care Card Reader Name Role Phone Tim Altman MD Primary Care Provider [phone] Vani Waldrop MD Unavailable [phone] Casper Smith MD Unavailable Unavailable Reason for Visit * Reason Comments Polymyalgia Rheumatica Fibromyalgia Medication Issue New Insurance wont p ay for Remicade. Pt hasnt had infusion since April & is in pain. Encounter Details Date Type Department Care Team (Late st Contact Info) Description 07/04/2013 9:00 AM FOOD DEHYDRATOR OPERATOR Office Visit [facility] Medical [facility] - Rheumatology [address] [place] [id number] Casper Smith MD PMR (polymyalgia rheumatica) (HCC) (Primary Dx); Fibromyalgia; DJD (degenerative joint disease) of knee; Hand pain; High risk medications (not anticoagulants) long-term use; Right knee pain Social History Tobacco Use [...] Sign Reading Time Taken Comments Blood Pressure 116/78 07/04/2013 9:21 AM FOOD DEHYDRATOR OPERATOR Pulse 88 07/04/2013 9:21 AM FOOD DEHYDRATOR OPERATOR Temperature - - Respiratory Rate - - Oxygen Saturation - - Inhaled Oxygen Concentration - - Weight 107 kg (235 lb 12.8 oz) 07/04/2013 9:21 A M FOOD DEHYDRATOR OPERATOR Height 165.1 cm (5' 5 ) 07/04/2013 9:21 AM FOOD DEHYDRATOR OPERATOR Body Mass Index 39.24 07/04/2013 9:21 AM FOOD DEHYDRATOR OPERATOR documented in this encounter Progress Notes * Casper Smith MD - 07/04/2013 9:32 AM CST Subjective: Lexi Mcneil is a 57 y.o. female referred By Tim Altman for evaluation and treatment of chronic pain Who was seen today for Chief Complaint Patient presents with ??? Polymyalgia Rheumatica ??? Fibromyalgia ??? Medication Issue New Insurance wont pay for Remicade. Pt kalyan had infusion since April & is in pain. She is flaring off Remicade. She remains on low dose prednisone. Frustrated over the knee pain and recently her hands are stiff and sore in AMs HAd been very pleased with improvement in long standingsymptoms of polyarthritis with antiTNF therapy She may qualify with Rheumatoid arthritis but TA PMRhas not been designated as an indication for TNF thus it is not available to her despite clinical response in the past. Recent preliminary data supports use of Actemra in TA/PMR but FDA only indicates these for limited diagnostic categories. Her right knee was swollen and I gave her a cortisone injections today She will increase her dose of prednisone for flares of polyarthritis and continue to take MTX CBC CMP every three months so far ok.. Health Assessment Questionnaire MHAQ: 5 Pain: 9 Global: 8.5 Rapid 3: 22.5 GI: 4 Fatigue: 8.5 Patient Active Problem List Diagnosis [...] Visit Medication Status Sig Dispense Refill ??? gabapentin (NEURONTIN) 600 MG tablet Active [...] EVERY 7 DAYS. 32 Tab 4 ??? predniSONE (DELTASONE) 10 MG tablet Active Take 10 mg by mouth once daily. Pt takes 1/2 tab once daily ??? gabapentin (NEURONTIN) 600 MG tablet Active [...] Grams (4000 mg) / 24 hours. ??? methylPREDNISolone (MEDROL DOSEPAK) 4 MG tablet Active 1 Packet 0 ??? ALPRAZolam (XANAX) 0.5 MG tablet Active [...] PO) Active Take by mouth daily. ??? inFLIXimab (REMICADE) injection Active Pt to receive IV infusion Remicade 400mg/250cc 0.9%normal saline per Remicade protocol unless further orders received from Dr. Smith. Order will in 1 year. 03/14/2014 Past Medical History Diagnosis Date ??? PMR [...] Coronary Artery Disease Mother Allergies as of 07/04/2013 - reviewed 07/04/2013 Allergen Reaction Noted ??? Amitriptyline 10/17/2010 ??? [...] addiction, suicide, insomnia, daytime sleepiness, Objective: BP: 116/78 Pulse: 88 Wt: 106.958 kg (235 lb 12.8 oz) BMI: 39.24 kg/m2 FiO2: Body mass index is 39.24 kg/(m^2). (negative exam findings are in normal text, positive findings are highlighted below) SJ=8 TJ=5 Nodules=0 GEN: anxious , confused , thin , obese, Cushingoid, ASSISTIVE DEVICE: bedside commode, cane, crutches, prosthesis, splint/brace, walker and wheelchair HEENT: CANTWELL , cerumen , anisocoria, retinal, hemorrhage, thrush, [...] abn 1st [facility], Flexor tend, Finger Deformity: [place] neck/ Boutonniere/ Mallet finger, Ulnar deviation, Dupuytren's, [...] and Knee Diagnosis: Encounter Diagnoses Name Primary? PMR (polymyalgia rheumatica) Yes Comment: had a good result from TNF blocking drug now lost effect now developing small joint pain in hands will check CCP and RF Along with US hands may need Dx reval ??? Fibromyalgia ??? DJD (degenerative joint disease) of knee ??? Hand pain ??? High risk medications (not anticoagulants) long-term use Immunization History Administered Date(s) Administered ??? Methylprednisolone 40mg 01/23/2011 ??? Methylprednlsolone 80mg 12/09/2011, 11/15/2012, 02/28/2013 ??? PPD 02/28/2013 ??? Synvisc Inj 12/02/2011, 12/02/2011, 12/09/2011, 12/09/2011, 12/16/2011, 12/16/2011 Plan: Orders Placed This Encounter ??? US EXTREMITY LEFT COMPLT NONVASC Standing Status: Future Number of Occurrences: Standing Expiration Date: 07/04/2014 Order Specific Question: Exam to be performed? Answer: Per Radiologist protocol ??? US EXTREMITY NON VASCULAR RIGHT Standing Status: Future Number of Occurrences: Standing Expiration Date: 07/04/2014 Order Specific Question: Exam to be performed? Answer: Per Radiologist protocol ??? CBC W AUTO DIFFERENTIAL ??? COMPREHENSIVE METABOLIC PANEL ??? RHEUMATOID FACTOR BLOOD QUANTITATIVE ??? CYCLIC CITRUL PEPTIDE AB IGG (CCP) ??? C-REACTIVE PROTEIN Plan Depo 80 right knee Zoloft 50-100 mg daily Gabapentin 600-1200 mg nightly Tylenol 1 gm tid Tramadol 100 mg tid Prednisone to 5-10 mg daily avoid as able Methotrexate 20 mg weekly Folic acid 1 mg daily Sinemet CR 50/250 bid Discussion or Rheumatoid arthritis diagnosis today F/U: No Follow-up on file. Copy Dr Cathie Wilkerson NeuroOpth, Dr Reaves Neurology [facility] Rheumatology [place] [address] Ultrasound apparatus: [employer] MyLab5 with a [id number] or [id number] probe [...] with any questions Casper Smith MD Office [phone] Back line [phone] DEHYDRATOR OPERATOR documented in this encounter Plan of Treatment Not on file documented as of this encounter Procedures Procedure Name Priority Date/Time Associated Diagnosis Comments RHEUMATOID FACTOR BLOOD QUANTITATIVE Routine 07/05/2013 3:00 PM FOOD DEHYDRATOR OPERATOR Hand pain C-REACTIVE PROTEIN Routine 07/05/2013 3: 00 PM FOOD DEHYDRATOR OPERATOR PMR (polymyalgia rheumatica) (HCC) CBC W AUTO DIFFERENTIAL Routine 07/05/2013 3:00 PM FOOD DEHYDRATOR OPERATOR High risk medications (not anticoagulants) long-term use COMPREHENSIVE METABOLIC PANEL Routine 07/05/2013 3:00 PM FOOD DEHYDRATOR OPERATOR High risk medications (not anticoagulants) long-term use documented in this encounter Results * C-REACTIVE PROTEIN (07/05/2013 3:00 PM FOOD DEHYDRATOR OPERATOR) Pathologist [facility] C-Reactive Protein 0.18 <0.80 mg/dL [facility] Comment: Please be advised that patients taking Carboxypenicillins may exhibit falsely decreased C-Reactive Protein levels due to an analytical interference in this assay. Test Performed at: [employer] [place], [place] ??[address] MUKUND GILES DO,MPH Blood specimen (specimen) BLOOD SPECIMEN / Unknown 07/05/2013 4:29 AM FOOD DEHYDRATOR OPERATOR Casper Smith MD LAB - CHEMISTRY CHELI SAAB Performing Organization Address [facility] de Phone Number [facility] [id number] [place] [phone] * RHEUMATOID FACTOR BLOOD QUANTITATIVE (07/05/2013 3:00 PM FOOD DEHYDRATOR OPERATOR) [facility] Rheumatoid Factor 12 <14 IU/mL [facility] Comment: Test Performed at: [facility] [address] [place], [place] ??[address] MUKNUD GILES DO,MPH Blood specimen (specimen) BLOOD SPECIMEN / Unknown 07/05/2013 4:29 AM FOOD DEHYDRATOR OPERATOR Casper Smith MD LAB - CHEMISTRY CHELI SAAB Performing Organization Address [facility] Co de Phone Number [facility] [id number] [place] [phone] * (ABNORMAL) COMPREHENSIVE METABOLIC PANEL (07/05/2013 3:00 PM FOOD DEHYDRATOR OPERATOR) Pathologist [facility] Glucose 89 65 - 99 mg/dL [facility] Comment: ? Fasting reference interval BUN 19 7 - 25 mg/dL [facility] Creatinine 0.84 0.50 - 1.05 mg/dL [facility] Comment: For patients >49 years of age, the reference limit for Creatinine is approximately 13% higher for people identified as -South African. eGFR by MDRD 77 > OR = 60 mL/min/1 .73m2 [facility] eGFR by MDRD 89 > OR = 60 mL/min/1 .73m2 [facility] BUN/Creatinine Ratio NOT APPLICABLE 6 - 22 (calc) [facility] Sodium 140 135 - 146 mmol/L [facility] Potassium 4.4 3.5 - 5.3 mmol/L [facility] Chloride 102 98 - 110 mmol/L [facility] CO2 30 19 - 30 mmol/L [facility] Calcium 10.0 8.6 - 10.4 mg/dL [facility] Protein Total 7.2 6.1 - 8.1 g/dL [facility] Albumin 4.5 3.6 - 5.1 g/dL [facility] Globulin Total 2.7 1.9 - 3.7 g/dL (calc) [facility] Albumin/Globulin Ratio 1.7 1.0 - 2.5 (calc) [facility] Bilirubin Total 0.6 0.2 - 1.2 mg/dL [facility] Alkaline Phosphatase 58 33 - 130 U/L [facility] AST 53(H) 10 - 35 U/L [facility] ALT 13 6 - 29 U/L [facility] Comment: Test Performed at: [facility] ??[phone] MUKUND GILES DO,MPH Blood specimen (specimen) BLOOD SPECIMEN / Unknown 07/05/2013 4:29 AM FOOD DEHYDRATOR OPERATOR Casper Smith MD LAB - CHEMISTRY CHELI [facility] Organization Address City/State/ZIP Co de Phone Number [facility] [phone] [place] [address] * (ABNORMAL) CBC W AUTO DIFFERENTIAL (07/05/2013 3:00 PM FOOD DEHYDRATOR OPERATOR) White Blood Cell Count 5.1 3.8 - 10.8 Thousand/ uL [facility] RBC 4.10 3.80 - 5.10 Million/u L [facility] Hemoglobin 13.6 11.7 - 15.5 g/dL [facility] Hematocrit 41.1 35.0 - 45.0 % [facility] MCV 100.3(H) 80.0 - 100.0 fL [facility] MCH 33.1(H) 27.0 - 33.0 pg [facility] MCHC 33.0 32.0 - 36.0 g/dL [facility] RDW 14.8 11.0 - 15.0 % [facility] Platelet Count 214 140 - 400 Thousand/ uL [facility] Neutrophil Absolute 2280 1500 - 7800 cells/uL [facility] Lymphocytes Absolute 2091 850 - 3900 cells/uL [facility] Absolute Monocytes 648 200 - 950 cells/uL [facility] Eosinophils Absolute 56 15 - 500 cells/uL [facility] Basophils Absolute 26 0 - 200 cells/uL [facility] Granulocytes % 44.7 % [facility] Lymphocytes % 41.0 % [facility] Monocytes % 12.7 % [facility] Eosinophils % 1.1 % [facility] Basophils % 0.5 % [facility] Comment: Test Performed at: [facility] [address] [place], [place] ??[address] MUKUND GILES DO,MPH Blood specimen (specimen) BLOOD SPECIMEN / Unknown 07/05/2013 4:29 AM FOOD DEHYDRATOR OPERATOR Casper Smith MD LAB - HEMATOLOGY ORD ERABLES [employer] [address] [place] [address] * XR KNEE 1 OR 2 VW RIGHT (07/04/2013 4:02 PM FOOD DEHYDRATOR OPERATOR) Anatomical Region Laterality Modality Lower Extremity Other Narrative 07/04/2013 4:02 PM FOOD DEHYDRATOR OPERATOR Casper Smith MD ? 07/04/2013 ??4:02 PM Mild medial joint space narrowing Procedure Note Casper Smith MD - 07/04/2013 4:02 PM CST Mild medial joint space narrowing Casper Smith MD DIAGNOSTIC IMAGING O RDERABLES documented in this encounter Visit Diagnoses Diagnosis PMR (polymyalgia rheumatica) (HCC)- Primary Polymyalgia rheumatica Fibromyalgia Mylagia and myositis, unspecified DJD (degenerative joint disease) of knee Osteoarthrosis, unspecified whether generalized or localized, lower leg Hand pain Pain in limb High risk medications (not anticoagulants) long-term use Encounter for long-term (current) use of other medications Right knee pain Pain in joint, lower leg DJD (degenerative joint disease) of knee Osteoarthrosis, unspecified whether generalized or localized, lower leg documented in this encounter Care Teams Card Reader Relationship Specialty Start Date End Date Tim Altman MD PCP - General 10/18/10 [place] [address] [place] [id number] Orthopedic Surgery 05/02/11 [place] [address] [address] [place] [address] Rheumatology 08/20/11 documented as of this encounter
--- OUTSIDE RECORDS SUMMARY | 2024-06-17 14:44 | XMS_ITS | Encounter Summary ---
Author Organization [facility] Address [address] [place] [address] [place] [address] Care Team Providers Care Senior Statistical Programmer Name Role Phone Tim Altman MD Primary Care Provider [phone] Vani Waldrop MD Unavailable [phone] Casper Smith MD Unavailable Unavailable Reason for Visit * Reason Comments Refill Request Encounter Details Date Type Department Care Team (Late st Contact Info) Description 09/03/2013 Refill [facility] - Rheumatology [address] [place] [id number] Casper Smith MD Refill Request Social History [...] filedocumented in this encounter Care Teams Senior Statistical Programmer Relationship Specialty Start Date End Date Tim Altman MD PCP - General 10/18/10 [place] [address] [place] [phone] Orthopedic Surgery 05/02/11 [place] [address] [place] [address] Rheumatology 08/20/11 documented as of this encounter
--- OUTSIDE RECORDS SUMMARY | 2024-06-17 14:45 | XMS_ITS | Encounter Summary ---
Author Organization [facility] Address [address] [place] [address] [place] [address] Care Team Providers Care Rehabilitation Counsellor Name Role Phone Tim Altman MD Primary Care Provider [phone] Vani Waldrop MD Unavailable [phone] Casper Smith MD Unavailable Unavailable Reason for Visit * Treatment (Routine) - Closed Specialty Diagnoses / Procedures Referred By Dariela nettles Referred To Contact Infusion Therapy Nurse Diagnoses Polymyalgia rheumatica (HCC) Procedures LA INFLIXIMAB INJECTION Casper Smith MD Referral ID Status Reason Start Date Expiration Date Visits Re quested Visits Authorized [id number] Closed 03/10/2013 06/14/2013 1 4 Encounter Details Date Type Department Care Team (Latest Contact Info) Description 03/14/2013 12:56 PM CDT - 03/14/2013 11:59 PM CDT Hospital Encounter [facility] - Rheumatology [address] [place] [id number] Casper Smith MD Discharge Disposition: Home or [...] Sign Reading Time Taken Comments Blood Pressure 142/74 03/14/2013 1:26 PM CDT Pulse 84 03/14/2013 1:26 PM CDT Temperature 36.8 ??C (98.2 ??F) 03/14/2013 1:26 PM CD T Respiratory Rate 16 03/14/2013 1:26 PM CDT Oxygen Saturation - - Inhaled Oxygen Concentration - - Weight 106.6 kg (235 lb) 03/14/2013 1:26 PM CDT Height 162.6 cm (5' 4 ) 03/14/2013 1:26 PM CDT Body Mass Index 40.34 03/14/2013 1:26 PM CDT documented in this encounter Discharge Instructions * Discharge Instructions* Haylee Plummer RN - 03/14/2013 1:31 PM CDT [facility] Post Infusion instructions You have received [...] rash or breathing problems please call your [facility] Rheumatology physician for further instructions. While most problems that occur around the time of an infusion are very mild and not dangerous, they should not be ignored. Thursday through Thursday 9-5 call the office at [phone] After hours or on the weekend call the exchange at [phone] If you have had lab work done [...] you and are glad you have chosen [facility] as your provider. Haylee Plummer RN * Discharge Instructions* Document, Scanned - 03/31/2013 8:17 PM CDT documented in this encounter Medications at Time of Discharge Medication Sig Dispensed Refills Start Date End Date acetaminophen (TYLENOL) 500 MG tabletIndications:Fib romyalgia Take 2 Tabs by mouth 3 times daily. Maximum allowable Acetaminophen amount = 4 Grams (4000 mg) / 24 hours. 11/15/2012 ALPRAZolam (XANAX) 0.5 MG tablet Take 0.5 mg by mouth 2 times daily. Calcium Carbonate-Vit D-Min (CALCIUM 1200 PO) Take [...] BY MOUTH TWICE A DAY 60 Tab 4 12/15/2012 05/10/2013 folic acid (FOLVITE) 1 MG tabletIndications:PMR (polymyalgia rheumatica) (HCC) Take 2 Tabs by mouth once daily. 60 Tab 12 11/15/2012 12/19/2013 gabapentin (NEURONTIN) 600 MG tabletIndications:Fib romyalgia Take 1-2 Tabs by mouth 3 times daily. 90 Tab 11 11/15/2012 11/21/2013 inFLIXimab (REMICADE) injection Pt to receive IV infusion Remicade 400mg/250cc 0.9%normal saline per Remicade protocol unless further orders received from Dr. Smith. Order will in 1 year. 03/14/2014 03/14/2013 07/04/2013 methotrexate 2.5 MG tabletIndications:Bubba yarthritis Take 8 Tabs by mouth every 7 days. 32 Tab 5 11/15/2012 04/28/2013 methylPREDNISolone (MEDROL DOSEPAK) 4 MG tablet 1 Packet 0 05/25/2012 08/09/2013 nystatin (MYCOSTATIN) [id number] UNIT/ML suspensionIndications :Thrush Take 5 mL by mouth 4 times daily. For thrush 280 mL 6 11/15/2012 03/28/2013 predniSONE (DELTASONE) 10 MG tablet Take 10 mg by mouth once daily. Pt takes 1/2 tab once daily 07/04/2013 sertraline (ZOLOFT) 100 MG tabletIndications:Fib romyalgia Take 1 Tab by mouth once daily. 30 Tab 12 11/15/2012 12/12/2013 traMADol (ULTRAM) 50 MG tabletIndications:Fib romyalgia Take 2 Tabs by mouth 3 times daily. 180 Tab 6 11/15/2012 04/29/2013 vitamin D, cholecalciferol, 1000 UNIT tabletIndications:Bubba yarthritis Take 1 Tab by mouth once daily. 11/15/2012 04/25/2013 documented as of this encounter Progress Notes * Courtney Cho RN - 03/14/2013 1:51 PM CDT INFUSIONS Lexi Mcneil [id number] 03/14/2013 Patient questionnaire results Health Assessment Questionnaire MHAQ: 4.7 Pain: 9.5 Global: 7.5 Rapid 3: 21.7 Sleep: 0 GI: 3 Fatigue:8.5 BP 142/74 Pulse 84 Temp 98.2 ??F Resp 16 Wt 106.595 kg (235 lb) BMI 40.34 kg/m2 Patient received: ?? 400 mgIV of Remicade and 250 cc normal saline given over 120 minutes. ?? Number of 24 gauge 3/4 inch placed in Right hand ?? 2 attempt(s). Pt's first infusion today. Patient monitored throughout procedure. Tolerated well? Yes Next treatment? 2weeks Courtney Cho RN documented in this encounter Miscellaneous Notes * Miscellaneous Scans - Document, Scanned - 03/23/2013 11:46 PM CDT documented in this encounter Plan of Treatment Not on file documented as of this encounter Visit Diagnoses Not on filedocumented in this encounter Administered Medications Inactive Administered Medications - up to 3 most recent administrations Medication Order MAR Action Action Date Dose Rate Site inFLIXimab (REMICADE) 400 mg in NaCl 0.9 % infusion 400 mg, at 10-250 mL/hr, Intravenous, CONTINUOUS, Starting on Thu03/14/13 at 1345, Until Thu03/14/13 at 1514, Refrigerate. Infuse and titrate per protocol. Use with in-line filter. $ New Bag/Syringe 03/14/2013 1:42 PM CDT 400 mg 130 mL/hr documented in this encounter Care Teams Rehabilitation Counsellor Relationship Specialty Start Date End Date Tim Altman MD PCP - General 10/18/10 [place] [address] [place] [phone] Orthopedic Surgery 05/02/11 [place] [address] [place] [phone] Rheumatology 08/20/11 documented as of this encounter
--- OUTSIDE RECORDS SUMMARY | 2024-06-17 14:45 | XMS_ITS | Encounter Summary ---
Author Organization [facility] Address [address] [place] [address] [place] [address] Care Team Providers Care Certified Pediatric Nurse Practitioner Name Role Phone Tim Altman MD Primary Care Provider [phone] Vani Waldrop MD Unavailable [phone] Casper Smith MD Unavailable Unavailable Reason for Visit * Reason Onset Date Comments Medication Problem 01/16/2012 Encounter Details Date Type Department Care Team (Late st Contact Info) Description 01/16/2012 Telephone [facility] - Rheumatology [address] [place] [address] [id number] Casper Smith MD Medication Problem Social History Tobacco Use Types Packs/Day Years Used Date Smoking Tobacco: Never Alcohol Use Standard Drinks/Week Comments No 0 (1 standard drink = 0.6 oz pur e alcohol) Sex and Gender Information Value Date Recorded Sex Assigned at Not on file Gender Identity Not on file Sexual Orientation Not on file documented as of this encounter Miscellaneous Notes * Telephone Encounter - Hannah Edmondson - 01/19/2012 8:57 AM CDT Pt called back and will call the pharmacy and check on the rx mtx * Telephone Encounter - Hannah Edmondson - 01/16/2012 2:12 PM CDT lmor to call on Thursday after 8a * Telephone Encounter - Hannah Edmondson - 01/16/2012 11:02 AM CDT lmor to call * Telephone Encounter - Lisa Reece MA - 01/16/2012 10:07 AM CDT Patient should be getting 32 tabs which is 8 tabs every week for 4 weeks. She needs to talk with the pharmacy and see what they are giving her. * Telephone Encounter - Manasa Cabrera - 01/16/2012 10:03 AM CDT Patient called in. She is having trouble getting enough MTX to lasted her. She is not sure if the pharmacy did not give her enough. Or if it just the date that she is gettting them filled. documented in this encounter Plan of Treatment Not on file documented as of this encounter Visit Diagnoses Not on filedocumented in this encounter Care Teams Certified Pediatric Nurse Practitioner Relationship Specialty Start Date End Date Tim Altman MD PCP - General 10/18/10 [place] [address] [place] [phone] Orthopedic Surgery 05/02/11 [place] [address] [place] [phone] Rheumatology 08/20/11 documented as of this encounter
--- OUTSIDE RECORDS SUMMARY | 2024-06-17 14:45 | XMS_ITS | Encounter Summary ---
Author Organization [facility] Address [address] [place] [address] [place] [address] Care Team Providers Care Leather Tanner Name Role Phone Tim Altman MD Primary Care Provider [phone] Vani Waldrop MD Unavailable [phone] Casper Smith MD Unavailable Unavailable Reason for Visit * Reason Onset Date Comments Follow-up 11/20/2011 Encounter Details Date Type Department Care Team (Late st Contact Info) Description 11/20/2011 Telephone [facility] - Rheumatology [address] [place] [address] [phone] Casper Smith MD Follow-up Social History Tobacco [...] * Telephone Encounter - Hannah Edmondson - 11/20/2011 10:48 AM CDT Pt states she received a letter that her synvisc was approved documented in this encounter Plan of Treatment Not on file documented as of this encounter Visit Diagnoses Not on filedocumented in this encounter Care Teams Leather Tanner Relationship Specialty Start Date End Date Tim Altman MD PCP - General 10/18/10 [place] [address] [place] [address] Orthopedic Surgery 05/02/11 [place] [address] [address] [place] [address] Rheumatology 08/20/11 documented as of this encounter
--- OUTSIDE RECORDS SUMMARY | 2024-06-17 14:45 | XMS_ITS | Encounter Summary ---
Author Organization [facility] Address [facility]3 [facility] [place] [address] Care Team Providers Care Equipment Operator/Laborer/Supervisor Name Role Phone Tim Altman MD Primary Care Provider [phone] Vani Waldrop MD Unavailable [phone] Casper Smith MD Unavailable Unavailable Reason for Visit * Reason Comments Imm Inj synvisc sapna knee Encounter Details Date Type Department Care Team (Late st Contact Info) Description 12/02/2011 10:30 AM CDT Office Visit [facility] - Rheumatology [address] [place] [id number] Casper Smith MD DJD (degenerative joint [...] Progress Notes * Casper Smith MD - 12/02/2011 4:59 PM CDT [facility] Rheumatology Ultrasound Clinic [address] [address] Ultrasound guided viscosupplement injection in knees to minimize pain and to optimize treatment effect by ensuring intraarticular injection and minimizing trauma to adjacent structures. IMP: DJD knees poorly responsive to NSAID, cortisone injections, analgesics, PT and Bracing/assistive devices. Ultrasound apparatus//Settings: US probe set at 10-18 mg Hz as clinically indicated based on site for visualization of the needle and patient anatomy Findings: Small bilateral effusions Estimated Body mass index is 42.25 kg/(m^2) as calculated from the following: Height as of 08/21/11: 5' 4.5 (1.638 m). Weight as of 08/21/11: 250 lb(113.399 kg). Procedure: Bilateral knee injection with Synvisc. The procedure was well tolerated without problems. Patient instructed to rest knees today and return to normal activities tomorrow The patient was instructed to return weekly until three injections are completed. Repeat cycles of treatment are planned every six months as clinically indicated. After ultrasound evaluation of the superior patellar bursa and local anesthesia of the skin and deeper structures with 1-2 cc of 1% Lidocaine, the injection needle was introduced through a sterile field of anesthetized tissues using no touch technique under direct in line ultrasound visualization to the supra- patellar bursa for injection and or aspiration as indicated in the notes and on saved Ultrasound images. Archived images of the needle in situ are saved and are available on request. Casper Smith MD [phone] Office documented in this encounter Plan of Treatment Not on file documented as of this encounter Visit Diagnoses Diagnosis DJD (degenerative joint disease) of knee- Primary Osteoarthrosis, unspecified whether generalized or localized, lower leg documented in this encounter Care Teams Equipment Operator/Laborer/Supervisor Relationship Specialty Start Date End Date Tim Altman MD PCP - General 10/18/10 [place] [address] [place] [address] Orthopedic Surgery 05/02/11 [place] [address] [place] [address] Rheumatology 08/20/11 documented as of this encounter
--- OUTSIDE RECORDS SUMMARY | 2024-06-17 14:45 | XMS_ITS | Encounter Summary ---
Author Organization [facility] Address [address] [place] [address] [place] [address] Care Team Providers Care Dry Mop Maker Name Role Phone Tim Altman MD Primary Care Provider [phone] Vani Waldrop MD Unavailable [phone] Casper Smith MD Unavailable Unavailable Reason for Visit * Treatment (Routine) - Closed Specialty Diagnoses / Procedures Referred By Dariela nettles Referred To Contact Infusion Therapy Nurse Diagnoses Polymyalgia rheumatica (HCC) Procedures MD INFLIXIMAB INJECTION Casper Smith MD Referral ID Status Reason Start Date Expiration Date Visits Re quested Visits Authorized [id number] Closed 03/10/2013 06/14/2013 1 4 Encounter Details Date Type Department Care Team (Latest Contact Info) Description 03/28/2013 10:57 AM CDT - 03/28/2013 11:59 PM CDT Hospital Encounter [facility] - Rheumatology [address] [place] [id number] Casper Smith MD Discharge Disposition: Home or [...] Sign Reading Time Taken Comments Blood Pressure 150/73 03/28/2013 11:08 AM CDT Pulse 76 03/28/2013 11:08 AM CDT Temperature 36.7 ??C (98.1 ??F) 03/28/2013 11:08 AM C DT Respiratory Rate 16 03/28/2013 11:08 AM CDT Oxygen Saturation - - Inhaled Oxygen Concentration - - Weight 106.6 kg (235 lb) 03/28/2013 11:08 AM CDT Height 162.6 cm (5' 4 ) 03/28/2013 11:08 AM CDT Body Mass Index 40.34 03/28/2013 11:08 AM CDT documented in this encounter Discharge Instructions * Discharge Instructions* Antoine Mae RN - 03/28/2013 11:17 AM CDT [place] [facility] Post Infusion instructions You have received [...] rash or breathing problems please call your [facility] Rheumatology physician for further instructions. While most problems that occur around the time of an infusion are very mild and not dangerous, they should not be ignored. Thursday through Thursday 9-5 call the office at [phone] After hours or on the weekend call the exchange at [phone] If you have had lab work done [...] you and are glad you have chosen [facility] as your provider. Antoien Mae RN * Discharge Instructions* Document, Scanned - 04/05/2013 10:33 PM CDT documented in this encounter Medications [...] MG tablet 1 Packet 0 05/25/2012 08/09/2013 predniSONE (DELTASONE) 10 MG tablet Take 10 [...] Progress Notes * Antoine Mae RN - 03/28/2013 12:32 PM CDT [facility] Lexi Mcneil [id number] 03/28/2013 Diagnosis: Polymyalgia rheumatica [725] Myalgia and myositis, unspecified [729.1]. Patient questionnaire results Health Assessment Questionnaire MHAQ: Pain: Global: Rapid 3: Sleep: GI: Fatigue: BP 150/73 Pulse 76 Temp 98.1 ??F Resp 16 Wt 106.595 kg (235 lb) BMI 40.34 kg/m2 Patient received: ?? 400 mgIV of Remicade and 250 cc normal saline given over 120 minutes. ?? Number of 22 gauge 1 inch placed in Right hand ?? 1 attempt(s). Patient monitored throughout procedure. Tolerated well? Yes Next treatment? 4wk Antoine Mae RN documented in this encounter Miscellaneous Notes * Miscellaneous Scans - Document, Scanned - 04/01/2013 7:00 PM CDT documented in this encounter Plan [...] at 10-250 mL/hr, Intravenous, CONTINUOUS, Starting on Thu03/28/13 at 1115, Until Thu03/28/13 at 1314, Refrigerate. Infuse and titrate per protocol. Use with in-line filter. $ New Bag/Syringe 03/28/2013 11:15 AM CDT 400 mg 125 mL/hr documented in this encounter Care Teams Dry Mop Maker Relationship Specialty Start Date End Date Tim Altman MD PCP - General 10/18/10 [place] [address] [place] [address] Orthopedic Surgery 05/02/11 [place] [address] [place] [address] Rheumatology 08/20/11 documented as of this encounter
--- OUTSIDE RECORDS SUMMARY | 2024-06-17 14:45 | XMS_ITS | Encounter Summary ---
Author Organization [facility] Address [facility]3 [facility] [place] [address] Care Team Providers Care Fumigator And Sterilizer Name Role Phone Tim Altman MD Primary Care Provider [phone] Vani Waldrop MD Unavailable [phone] Casper Smith MD Unavailable Unavailable Reason for Visit * Reason Onset Date Comments Follow-up 03/02/2013 Encounter Details Date Type Department Care Team (Late st Contact Info) Description 03/02/2013 Telephone [facility] Medical [facility] - Rheumatology [address] [place] [address] [phone] Casper Smith MD Follow-up Social History Tobacco [...] Telephone Encounter - Yeny Oro MA - 03/07/2013 12:54 PM CDT Still waiting on PPD results * Telephone Encounter - Manasa Cabrera - 03/02/2013 10:47 AM CDT Patient called in. She is checking back to see if was found out anything on the new medicine doctorwants to try her on. I don't see anything noted and patient was not sure what it was. Also she had her TB test done today at PCP office and they will be sending it over to us. documented in this encounter Plan of Treatment Not on file documented as of this encounter Visit Diagnoses Not on filedocumented in this encounter Care Teams Fumigator And Sterilizer Relationship Specialty Start Date End Date Tim Altman MD PCP - General 10/18/10 [place] [address] [place] [address] Orthopedic Surgery 05/02/11 [place] [address] [place] [address] Rheumatology 08/20/11 documented as of this encounter
--- OUTSIDE RECORDS SUMMARY | 2024-06-17 14:45 | XMS_ITS | Encounter Summary ---
Author Organization [facility] Address [address] [place] [address] [place] [address] Care Team Providers Care Planer Stone Name Role Phone Tim Altman MD Primary Care Provider [phone] Vani Waldrop MD Unavailable [phone] Casper Smith MD Unavailable Unavailable Reason for Visit * Reason Comments Refill Request Encounter Details Date Type Department Care Team (Late st Contact Info) Description 05/10/2013 Refill [facility] - Rheumatology [address] [place] [phone] Casper Smith MD Refill Request Social History [...] on filedocumented in this encounter Care Teams Planer Stone Relationship Specialty Start Date End Date Tim Altman MD PCP - General 10/18/10 [place] [address] [place] [address] Orthopedic Surgery 05/02/11 [place] [address] [place] [address] Rheumatology 08/20/11 documented as of this encounter
--- OUTSIDE RECORDS SUMMARY | 2024-06-17 14:45 | XMS_ITS | Encounter Summary ---
Author Organization [facility] Address [address] [place] [address] [place] [address] Care Team Providers Care Business Resiliency Manager Name Role Phone Tim Altman MD Primary Care Provider [phone] Vani Waldrop MD Unavailable [phone] Casper Smith MD Unavailable Unavailable Reason for Visit * Reason Onset Date Comments MEDICATION REFILL 04/29/2013 Encounter Details Date Type Department Care Team (Late st Contact Info) Description 04/29/2013 Refill [facility] - Rheumatology [address] [place] [id number] Casper Smith MD MEDICATION REFILL Social History [...] as of this encounter Visit Diagnoses Diagnosis Fibromyalgia- Primary Mylagia and myositis, unspecified documented in this encounter Care Teams Business Resiliency Manager Relationship Specialty Start Date End Date Tim Altman MD PCP - General 10/18/10 [place] [address] [address] Orthopedic Surgery 05/02/11 [place] [address] [address] Rheumatology 08/20/11 documented as of this encounter
--- OUTSIDE RECORDS SUMMARY | 2024-06-17 14:45 | XMS_ITS | Encounter Summary ---
Author Organization [facility] Address [address] [place], [place] [address] [address] Care Team Providers Care Tunnel Elastic Operator Zigzag Name Role Phone Tim Altman MD Primary Care Provider [phone] Vani Waldrop MD Unavailable [phone] Casper Smith MD Unavailable Unavailable Encounter Details Date Type Department Care Team (Late st Contact Info) Description 03/14/2013 Orders Only [facility] Medical [facility] - Rheumatology [address] [place] [phone] Haylee Plummer RN Polymyalgia rheumatica (HCC) Social History Tobacco Use Types Packs/Day [...] as of this encounter Visit Diagnoses Diagnosis Polymyalgia rheumatica (HCC)- Primary Polymyalgia rheumatica documented in this encounter Care Teams Tunnel Elastic Operator Zigzag Relationship Specialty Start Date End Date Tim Altman MD PCP - General 10/18/10 [place] [address] [phone] Orthopedic Surgery 05/02/11 [place] [address] [place] [address] Rheumatology 08/20/11 documented as of this encounter
--- OUTSIDE RECORDS SUMMARY | 2024-06-17 14:45 | XMS_ITS | Encounter Summary ---
Author Organization [facility] Address [facility]3 [place] [address] Care Team Providers Care Featheredger And Reducer Machine Name Role Phone Tim Altman MD Primary Care Provider [phone] Vani Waldrop MD Unavailable [phone] Casper Smith MD Unavailable Unavailable Reason for Visit * Reason Comments Imm Inj Synvisc; bilateral k nees Encounter Details Date Type Department Care Team (Late st Contact Info) Description 12/09/2011 10:30 AM CDT Office Visit [facility] - Rheumatology [address] [place] [address] Casper Smith MD DJD (degenerative joint disease) of knee (Primary Dx); Fibromyalgia Social History Tobacco Use Types Packs/Day Years Used Date Smoking Tobacco: Never Alcohol Use Standard Drinks/Week Comments No 0 (1 standard drink = 0.6 oz pur e alcohol) Sex and Gender Information Value Date Recorded Sex Assigned at Not on file Gender Identity Not on file Sexual Orientation Not on file documented as of this encounter Progress Notes * Lisa Lynch MA - 12/10/2011 3:19 PM CDTAddended by: LISA LYNCH on: 12/10/2011 03:19 PM Modules accepted: Orders * Casper Smith MD - 12/10/2011 1:43 PM CDT [facility] Rheumatology Ultrasound Clinic [address] [place] [address] Ultrasound guided viscosupplement injection in knees to [...] kg). Procedure: Bilateral knee injection with Synvisc. 80 mg depo-medrol injected into left knee. The procedure was well tolerated without problems. [...] are available on request. Casper Smith MD [phone] Office documented in this encounter Plan of Treatment Not on file documented as of this encounter Visit Diagnoses Diagnosis DJD (degenerative joint disease) of knee- Primary Osteoarthrosis, unspecified whether generalized or localized, lower leg Fibromyalgia Mylagia and myositis, unspecified documented in this encounter Care Teams Featheredger And Reducer Machine Relationship Specialty Start Date End Date Tim Altman MD PCP - General 10/18/10 [place] [address] [place] [address] Orthopedic Surgery 05/02/11 [place] [address] [place] [phone] Rheumatology 08/20/11 documented as of this encounter
--- OUTSIDE RECORDS SUMMARY | 2024-06-17 14:45 | XMS_ITS | Encounter Summary ---
Author Organization [facility] Address [facility] [place] [address] Care Team Providers Care Area Development Manager Name Role Phone Tim Altman MD Primary Care Provider [phone] Vani Waldrop MD Unavailable [phone] Casper Smith MD Unavailable Unavailable Reason for Visit * Reason Comments Follow-up DJD knees. Pt says S yjocelinevisc wasnt helpful. Pain Elbow left Encounter Details Date Type Department Care Team (Late st Contact Info) Description 06/16/2012 11:45 AM BATHHOUSE KEEPER Office Visit [facility] - Rheumatology [address] [place] [id number] Casper Smith MD High risk medications (not anticoagulants) long-term use (Primary Dx); Fibromyalgia; PMR (polymyalgia rheumatica) (HCC); Elbow pain; RLS (restless legs syndrome) Social History Tobacco Use Types Packs/Day Years [...] Sign Reading Time Taken Comments Blood Pressure 128/72 06/16/2012 12:51 PM BATHHOUSE KEEPER Pulse 96 06/16/2012 12:51 PM BATHHOUSE KEEPER Temperature - - Respiratory Rate - - Oxygen Saturation - - Inhaled Oxygen Concentration - - Weight 105 kg (231 lb 6.4 oz) 06/16/2012 12:51 P M BATHHOUSE KEEPER Height 162.6 cm (5' 4 ) 06/16/2012 12:51 PM BATHHOUSE KEEPER Body Mass Index 39.72 06/16/2012 12:51 PM BATHHOUSE KEEPER documented in this encounter Progress Notes * Yeny Oro MA - 06/17/2012 3:23 PM CSTQuick Note: Results sent via [employer] HOUSE KEEPER * Casper Smith MD - 06/16/2012 1:02 PM CST Subjective: Lexi Mcneil is a 56 y.o. female referred By Tim Altman for evaluation and treatment of chronic pain Who was seen today for Chief Complaint Patient presents with ??? Follow-up DJD knees. Pt says Synvisc wasnt helpful. ??? Pain Elbow left She is having left elbow pain and recently still notes left knee medial tenderness She has done well with Sinemet at HS but needs to increase dose due to daytime leg symptoms She will increase prednisone dose and Sinemet and keep me updated with her response. She remains on MTX as a steroid sparingeffect CBC CMP checked look at medication tolerability Health Assessment Questionnaire MHAQ: 5.7 Pain: 8.5 Global: 8.5 Rapid 3: 22.7 GI: 7 Fatigue: 9 Patient Active Problem List Diagnoses Date Noted ??? Restless legs syndrome (RLS) 05/15/2011 05/15/2011 will start Simenet ??? DJD (degenerative joint disease) of knee 10/18/2010 occasional flare ??? Insomnia 10/18/2010 ??? Fibromyalgia 10/17/2010 10/17/2010 chart abstraction ??? PMR (polymyalgia rheumatica) 10/17/2010 Hx of TA biopsy showing mild inflammation on chronic steroids 05/15/2011 flared today incease prednisone Diagnostic ultrasound for causes of bilateral hand pain Outpatient Prescriptions Prior to Visit Medication Sig Dispense Refill ??? gabapentin (NEURONTIN) 600 MG tablet TAKE ONE TABLET BY MOUTH IN THE MORNING TWO IN THE [id number] Tab 11 ??? folic acid (FOLVITE) 1 MG tablet Take 2 Tabs by mouth once daily. 60 Tab 12 ??? traMADol (ULTRAM) 50 MG tablet Take 2 Tabs by mouth 3 times daily. 180 Tab 6 ??? predniSONE (DELTASONE) 10 MG tablet Take 1 Tab by mouth 2 times daily. BID for 5 days then return to once daily 30 Tab 4 ??? methotrexate 2.5 MG tablet Take 8 Tabs by mouth every 7 days before meal. 32 Tab 6 ??? sertraline (ZOLOFT) 100 MG tablet Take 1 Tab by mouth once daily. 30 Tab 12 ??? ALPRAZolam (XANAX) 0.5 MG tablet Take [...] 1200 PO) Take by mouth daily. ??? vitamin D, cholecalciferol, 1000 UNIT tablet Take by mouth daily. ??? acetaminophen (TYLENOL) 500 MG tablet Take 2 Tabs by mouth 3 times daily. Maximum allowable Acetaminophen amount = 4 Grams (4000 mg) / 24 hours. ??? methylPREDNISolone (MEDROL DOSEPAK) 4 MG tablet 1 Packet 0 ??? Hylan (SYNVISC) 8 MG/ML INJ 2 mL by Intra-articular route every 7 days. 5.88 mL ??? Hylan (SYNVISC) 8 MG/ML INJ 2 mL by Intra-articular route every 7 days. 5.88 mL ??? carbidopa-levodopa CR (SINEMET CR) 50-200 MG tablet Take 1 Tab by mouth at bedtime. 30 Tab 6 ??? predniSONE (DELTASONE) 1 MG tablet Take 1 Tab by mouth once daily. 30 Tab 6 ??? nystatin (MYCOSTATIN) 235872 UNIT/ML suspension Take 5 mL by mouth 4 times daily. For thrush 280 mL 6 Past Medical History Diagnosis Date ??? [...] Coronary Artery Disease Mother Allergies as of 06/16/2012 - reviewed 06/16/2012 Allergen Reaction Noted ??? Amitriptyline 10/17/2010 ??? Codeine 10/18/2010 ??? Crestor (rosuvastatin) 10/17/2010 ??? Fluorescein Swelling 12/24/2010 ??? Other 10/18/2010 ??? Provera (medroxyprogesterone acetate) 10/17/2010 ??? Sulfa drugs 10/17/2010 ??? Vicodin (hydrocodone-acetaminophen) 10/17/2010 ??? Vytorin 10/17/2010 ??? Zinc 10/18/2010 ??? Pcn (penicillins) Rash 10/17/2010 (Note to reader: This HPI form is [...] Vision loss, glaucoma, cataract, Uveitis, dry eyes, EARS: wax, hearing loss, ear cartilage pain [...] addiction, suicide, insomnia, daytime sleepiness, Objective: BP: 128/72 Pulse: 96 Wt: 104.962 kg (231 lb 6.4 oz) BMI: 39.72 kg/m2 FiO2: Body mass index is 39.72 kg/(m^2). (negative exam findings are in normal text, positive findings are highlighted below) SJ=0 TJ=0 Nodules=0 GEN: anxious , confused , thin , obese, Cushingoid, ASSISTIVE DEVICE: bedside commode, cane, crutches, prosthesis, splint/brace, walker and wheelchair HEENT: [place] , cerumen , anisocoria, retinal, hemorrhage, thrush, [...] abn 1st [facility], Flexor tend, Finger Deformity: [place] neck/ [place]/ [place] finger, Ulnar deviation, Dupuytren's, [...] paraspinous muscles , SLR positive below knee Ellito's index HIPS: tender trochanter normal ROM, normal femoral pulsation, reduced ROM KNEES: warm, tender, left swollen, crepitation, valgus, Varus, unstable, flexion <90, Ext limit to 5 FEET/ANKLE: Pes planus, medial ankle swelling/tenderness, onycholysis, Tinea Pedis, plantar fascia,post tibial tendonitis, MTP tend/deformity, Hammer toes, Hallux valgus, TRIGGER POINTS: Low Cervical Region, Second Rib, Occiput, Trapezius Muscle, Supraspinatus Muscle, Lateral Epicondyle, Gluteal, Greater Trochanter and Knee Diagnosis: Encounter Diagnoses Name Primary? Fibromyalgia Yes ??? PMR (polymyalgia rheumatica) ??? Elbow pain ??? RLS (restless legs syndrome) Immunization History Administered Date(s) Administered ??? Methylprednisolone 40mg 01/23/2011 ??? Methylprednlsolone 80mg 12/09/2011 ??? Synvisc Inj 12/02/2011, 12/02/2011, 12/09/2011, 12/09/2011, 12/16/2011, 12/16/2011 Plan: Orders Placed This Encounter ??? carbidopa-levodopa CR (SINEMET CR) 50-200 MG tablet Sig: Take 1 Tab by mouth 2 times daily. Dispense: 60 Tab Refill: 5 Plan Zoloft 50-100 mg daily Gabapentin 600-1200 mg nightly Tylenol 1 gm tid Tramadol 100 mg tid increase Prednisone 10-20 mg daily Methotrexate 20 mg weekly Folic acid 1 mg daily CBC CMP CRP Increase Sinemet CR 50/250 from qHS to bid F/U: Return in about 6 months (around 12/14/2012). Copy Dr Cathie Wilkerson NeuroOpth, Dr Reaves Neurology HOUSE KEEPER documented in this encounter Miscellaneous Notes * Addendum Note - Casper Smith MD - 06/16/2012 1:16 PM CSTAddended by: CASPER SMITH on: 06/16/2012 01:16 PM Modules accepted: Orders, Level of Service HOUSE KEEPER documented in this encounter Plan of Treatment Not on file documented as of this encounter Procedures Procedure Name Priority Date/Time Associated Diagnosis Comments CBC W AUTO DIFFERENTIAL Routine 06/16/2012 1:25 PM BATHHOUSE KEEPER High risk medications (not anticoagulants) long-term use C-REACTIVE PROTEIN Routine 06/16/2012 1: 22 PM BATHHOUSE KEEPER PMR (polymyalgia rheumatica) (HCC) COMPREHENSIVE METABOLIC PANEL Routine 06/16/2012 1:22 PM BATHHOUSE KEEPER High risk medications (not anticoagulants) long-term use documented in this encounter Results * (ABNORMAL) CBC W AUTO DIFFERENTIAL (06/16/2012 1:25 PM BATHHOUSE KEEPER) WBC 6.5 4.0 - 10.5 x10E3/uL [facility] ACCOUNT BILL RBC 4.05 3.77 - 5.28 x10E6/uL [facility] ACCOUNT BILL Hemoglobin 13.6 11.1 - 15.9 g/dL [facility] ACCOUNT BILL Hematocrit 40.1 34.0 - 46.6 % [facility] ACCOUNT BILL MCV 99(H) 79 - 97 fL [facility] ACCOUNT BILL MCH 33.6(H) 26.6 - 33.0 pg [facility] ACCOUNT BILL MCHC 33.9 31.5 - 35.7 g/dL [facility] ACCOUNT BILL RDW 15.3 12.3 - 15.4 % [facility] ACCOUNT BILL Platelet Count 221 140 - 415 x10E3/uL [facility] ACCOUNT BILL Granulocytes % 51 40 - 74 % [facility] ACCOUNT BILL Lymphocytes % 38 14 - 46 % [facility] ACCOUNT BILL Monocytes % 10 4 - 13 % [facility] ACCOUNT BILL Eosinophils % 1 0 - 7 % [facility] ACCOUNT BILL Basophils % 0 0 - 3 % [facility] ACCOUNT BILL Immature Cells NOT NEEDED [facility] ACCOUNT BILL Comment:Ancillary determined the test is not needed Granulocytes Absolute 3.3 1.8 - 7.8 x10E3/uL [facility] ACCOUNT BILL Lymphocytes Absolute 2.5 0.7 - 4.5 x10E3/uL [facility] ACCOUNT BILL Monocytes Absolute 0.6 0.1 - 1.0 x10E3/uL [facility] ACCOUNT BILL Eosinophils Absolute 0.1 0.0 - 0.4 x10E3/uL [facility] ACCOUNT BILL Basophils Absolute 0.0 0.0 - 0.2 x10E3/uL [facility] ACCOUNT BILL Immature Granulocytes 0 0 - 2 % [facility] ACCOUNT BILL Immature Granulocytes Absolute 0.0 0.0 - 0.1 x10E3/uL [facility] ACCOUNT BILL nRBC NOT NEEDED [facility] ACCOUNT BILL Comment:Ancillary determined the test is not needed Comment Hematology NOT NEEDED [facility] ACCOUNT BILL Comment:Ancillary determined the test is not needed Blood specimen (specimen) BLOOD SPECIMEN / Unknown 06/16/2012 1:25 PM BATHHOUSE KEEPER 06/16/2012 6:26 PM BATHHOUSE KEEPER Narrative Resulting Agency Comment [facility] [address] ??[facility] [id number] Casper Smith MD LAB - HEMATOLOGY ORD ERABLES [facility] ACCOUNT BILL * (ABNORMAL) COMPREHENSIVE METABOLIC PANEL (06/16/2012 1:22 PM BATHHOUSE KEEPER) Glucose 87 65 - 99 mg/dL [facility] ACCOUNT BILL BUN 12 6 - 24 mg/dL [facility] ACCOUNT BILL Creatinine 0.92 0.57 - 1.00 mg/dL [facility] ACCOUNT BILL eGFR by MDRD 69 >59 mL/min/1.7 3 [facility] ACCOUNT BILL eGFR by MDRD 80 >59 mL/min/1.7 3 [facility] ACCOUNT BILL BUN/Creatinine Ratio 13 9 - 23 [facility] ACCOUNT BILL Sodium 142 134 - 144 mmol/L [facility] ACCOUNT BILL Potassium 4.3 3.5 - 5.2 mmol/L [facility] ACCOUNT BILL Chloride 102 97 - 108 mmol/L [facility] ACCOUNT BILL CO2 27 20 - 32 mmol/L [facility] ACCOUNT BILL Calcium 9.7 8.7 - 10.2 mg/dL [facility] ACCOUNT BILL Protein Total 7.1 6.0 - 8.5 g/dL [facility] ACCOUNT BILL Albumin 4.7 3.5 - 5.5 g/dL [facility] ACCOUNT BILL Globulin Total 2.4 1.5 - 4.5 g/dL [facility] ACCOUNT BILL Albumin/Globulin Ratio 2.0 1.1 - 2.5 [facility] ACCOUNT BILL Bilirubin Total 0.5 0.0 - 1.2 mg/dL [facility] ACCOUNT BILL Alkaline Phosphatase 59 25 - 150 IU/L [facility] ACCOUNT BILL AST 57(H) 0 - 40 IU/L [facility] ACCOUNT BILL ALT 27 0 - 32 IU/L [facility] ACCOUNT BILL Blood specimen (specimen) BLOOD SPECIMEN / Unknown 06/16/2012 1:22 PM BATHHOUSE KEEPER 06/16/2012 6:26 PM BATHHOUSE KEEPER Narrative Resulting Agency Comment [facility] [address] ??[facility] [id number] Casper Smith MD LAB - CHEMISTRY CHELI SAAB Performing Organization Address [facility] de Phone Number [facility] ACCOUNT BILL * C-REACTIVE PROTEIN (06/16/2012 1:22 PM BATHHOUSE KEEPER) C-Reactive Protein 3.0 0.0 - 4.9 mg/L [facility] ACCOUNT BILL Blood specimen (specimen) BLOOD SPECIMEN / Unknown 06/16/2012 1:22 PM BATHHOUSE KEEPER 06/16/2012 6:26 PM BATHHOUSE KEEPER Narrative Resulting Agency Comment [facility] [place] [id number] [facility] ??[facility] [id number] Casper Smith MD LAB - CHEMISTRY CHELI SAAB Performing Organization Address City/[facility]/ZIP Co de Phone Number [facility] ACCOUNT BILL documented in this encounter Visit Diagnoses Diagnosis High risk medications (not anticoagulants) long-term use- Primary Encounter for long-term (current) use of other medications Fibromyalgia Mylagia and myositis, unspecified PMR (polymyalgia rheumatica) (HCC) Polymyalgia rheumatica Elbow pain Pain in joint, upper arm RLS (restless legs syndrome) Restless legs syndrome (RLS) documented in this encounter Care Teams Area Development Manager Relationship Specialty Start Date End Date Tim Altman MD PCP - General 10/18/10 [place] [id number] [address] [place] [phone] Orthopedic Surgery 05/02/11 [place] [id number] [place] [phone] Rheumatology 08/20/11 documented as of this encounter
--- OUTSIDE RECORDS SUMMARY | 2024-06-17 14:45 | XMS_ITS | Encounter Summary ---
Author Organization [facility] Address [address] [place] [address] [place] [address] Care Team Providers Care Funeral Home Director Name Role Phone Tim Altman MD Primary Care Provider [phone] Vani Waldrop MD Unavailable [phone] Casper Smith MD Unavailable Unavailable Reason for Visit * Reason Onset Date Comments MEDICATION REFILL 01/16/2012 Encounter Details Date Type Department Care Team (Late st Contact Info) Description 01/16/2012 Refill [facility] - Rheumatology [address] [place] [phone] Casper Smith MD MEDICATION REFILL Social History [...] as of this encounter Visit Diagnoses Diagnosis PMR (polymyalgia rheumatica) ([facility])- Primary Polymyalgia rheumatica documented in this encounter Care Teams Funeral Home Director Relationship Specialty Start Date End Date Tim Altman MD PCP - General 10/18/10 [place] [address] [address] Orthopedic Surgery 05/02/11 [place] [address] [address] Rheumatology 08/20/11 documented as of this encounter
--- OUTSIDE RECORDS SUMMARY | 2024-06-17 14:45 | XMS_ITS | Encounter Summary ---
Author Organization [facility] Address [facility] [place] [address] Care Team Providers Care Lace And Textiles Restorer Name Role Phone Tim Altman MD Primary Care Provider [phone] Vani Waldrop MD Unavailable [phone] Casper Smith MD Unavailable Unavailable Reason for Visit * Reason Comments Upper Extremity Problem Encounter Details Date Type Department Care Team (Latest Contact Info) Description 11/15/2012 11:00 AM CDT Procedure visit [facility] - Family Medicine [address] [place], [place] [id number] Polyarthritis ; Unspecified polyarthropathy or polyarthritis, site unspecified Social History Tobacco Use Types Packs/Day Years [...] Procedure Notes * Casper Smith MD - 11/16/2012 4:32 PM CDTAssociated Order(s): US EXTREMITY LEFT COMPLT NONVASC; US EXTREMITY NON VASCULAR RIGHT Bilateral Hand [...] the diagnostic impression are recorded by the viscose cellar worker under the direction of the attending physician and interpreted by Dr Smith. Right Synovitis [...] damage is none. Synovitis is compatible with mild without PDUS. Median nerve changes are enlarged bilaterally. 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 documented in this encounter Plan of Treatment Not on file documented as of this encounter Procedures Procedure Name Priority Date/Time Associated Diagnosis Comments US EXTREMITY NON VASCULAR RIGHT Routine 11/16/2012 4:34 PM CDT Polyarthritis US EXTREMITY LEFT COMP JOINT Routine 11/16/2012 4:34 PM CDT Polyarthritis documented in this encounter Results * US EXTREMITY NON VASCULAR RIGHT (11/16/2012 4:34 PM CDT) Anatomical Region Laterality Modality Lower Extremity, Upper Extremity Other Narrative 11/16/2012 4:34 PM CDT Casper Smith MD ? 11/16/2012 ??4:34 PM Bilateral Hand Ultrasound Protocol: Complete Bilateral Hand Study for RA Activity and Median nerve dimensions using MyLab5 with a 438 probe at 18mHz or RiboxxraImagiin. M7 with a L14-6s probe at 14 [...] the diagnostic impression are recorded by the viscose cellar worker under the direction of the attending physician [...] MD directly to discuss this case at [phone] or via [employer] messaging at: [employer]. Procedure Note Casper Smith MD - 11/16/2012 4:32 PM CDT Bilateral Hand Ultrasound Protocol: Complete Bilateral Hand Study for RA Activity and Median nerve dimensionsusing MyLab5 with a 438 probe at 18mHz or Mindray M7 with a L14-6s probeat 14 mHz [...] effect the diagnostic impression arerecorded by the viscose cellar worker under the direction of the attendingphysician and [...] MD directly to discuss this case at [phone] [employer] messaging at: [employer]. Casper Smith MD US ORDERABLES * US EXTREMITY LEFT COMPLT NONVASC (11/16/2012 4:34 PM CDT) Anatomical Region Laterality Modality Lower [...] the diagnostic impression are recorded by the viscose cellar worker under the direction of the attending physician [...] MD directly to discuss this case at [phone] or via [employer] messaging at: [employer]. Procedure Note Casper Smith MD - 11/16/2012 4:32 PM CDT Bilateral Hand Ultrasound Protocol: Complete Bilateral Hand Study for RA Activity and Median nerve dimensionsusing MyLab5 with a 438 probe at 18mHz or Mindray M7 with a L14-6s probeat 14 mHz [...] effect the diagnostic impression arerecorded by the viscose cellar worker under the direction of the attendingphysician and [...] MD directly to discuss this case at [phone] [employer] messaging at: [email or web address]. Casper Smith MD US ORDERABLES documented in this encounter Visit Diagnoses Diagnosis Polyarthritis- Primary Unspecified polyarthropathy or polyarthritis, site unspecified Unspecified polyarthropathy or polyarthritis, site unspecified documented in this encounter Care Teams Lace And Textiles Restorer Relationship Specialty Start Date End Date Tim Altman MD PCP - General 10/18/10 [place] [address] [address] [place] [phone] Orthopedic Surgery 05/02/11 [place] [address] [address] [place] [address] Rheumatology 08/20/11 documented as of this encounter
--- OUTSIDE RECORDS SUMMARY | 2024-06-17 14:45 | XMS_ITS | Encounter Summary ---
Author Organization [facility] Address [facility] [place] [address] Care Team Providers Care Sports Writer Name Role Phone Tim Altman MD Primary Care Provider [phone] Vani Waldrop MD Unavailable Casper Smith MD Unavailable Unavailable Reason for Visit * Reason Onset Date Comments Swelling Knee 12/18/2011 Encounter Details Date Type Department Care Team (Late st Contact Info) Description 12/18/2011 Telephone [facility] - Rheumatology [address] [place] [phone] Casper Smith MD Swelling Knee Social History Tobacco Use Types Packs/Day Years [...] * Telephone Encounter - Hannah Edmondson - 12/18/2011 2:21 PM CDT Informed pt of note * Telephone Encounter - Lisa Reece MA - 12/18/2011 12:37 PM CDT Please inform patient that says to continue icing it and try to keep it elevated the best she can. * Telephone Encounter - Hannah Edmondson - 12/18/2011 10:25 AM CDT Pt had synvisc inj and was told to call if her knees swelled and the lt knee is and a big knot where the needle went in , does dr want her to keep ice on it or what documented in this encounter Plan of Treatment Not on file documented as of this encounter Visit Diagnoses Not on filedocumented in this encounter Care Teams Sports Writer Relationship Specialty Start Date End Date Tim Altman MD PCP - General 10/18/10 [place] [address] [place] [address] Orthopedic Surgery 05/02/11 [place] [address] [place] [address] Rheumatology 08/20/11 documented as of this encounter
--- OUTSIDE RECORDS SUMMARY | 2024-06-17 14:45 | XMS_ITS | Encounter Summary ---
Author Organization [facility] Address [address] [place] [address] [place] [address] Care Team Providers Care Broadcaster Name Role Phone Tim Altman MD Primary Care Provider [phone] Vani Waldrop MD Unavailable [phone] Casper Smith MD Unavailable Unavailable Reason for Visit * Reason Comments Refill Request Encounter Details Date Type Department Care Team (Late st Contact Info) Description 04/28/2013 Refill [facility] - Rheumatology [address] [place] [id number] Casper Smith MD Refill Request Social History [...] on filedocumented in this encounter Care Teams Broadcaster Relationship Specialty Start Date End Date Tim Altman MD PCP - General 10/18/10 [place] [id number] [place] [phone] Orthopedic Surgery 05/02/11 [place] [address] [place] [address] Rheumatology 08/20/11 documented as of this encounter
--- OUTSIDE RECORDS SUMMARY | 2024-06-17 14:45 | XMS_ITS | Encounter Summary ---
Author Organization [facility] Address [address] [place] [address] [place] [address] Care Team Providers Care Consulting Sme Name Role Phone Tim Altman MD Primary Care Provider [phone] Vani Waldrop MD Unavailable [phone] Casper Smith MD Unavailable Unavailable Reason for Visit * Reason Onset Date Comments MEDICATION REFILL 11/24/2011 Encounter Details Date Type Department Care Team (Late st Contact Info) Description 11/24/2011 Refill [facility] - Rheumatology [address] [place] [id number] Casper Smith MD MEDICATION REFILL Social History [...] Diagnosis Fibromyalgia- Primary Mylagia and myositis, unspecified PMR (polymyalgia rheumatica) (HCC) Polymyalgia rheumatica documented in this encounter Care Teams Consulting Sme Relationship Specialty Start Date End Date Tim Altman MD PCP - General 10/18/10 [place] [address] [address] Orthopedic Surgery 05/02/11 [place] [address] [phone] Rheumatology 08/20/11 documented as of this encounter
--- OUTSIDE RECORDS SUMMARY | 2024-06-17 14:45 | XMS_ITS | Encounter Summary ---
Author Organization [facility] Address [address] [place], [place] [address] [address] Care Team Providers Care Business Management Intern Name Role Phone Tim Altman MD Primary Care Provider [phone] Vani Waldrop MD Unavailable [phone] Casper Smith MD Unavailable Unavailable Reason for Visit * Reason Comments Polymyalgia Rheumatica Pain Knee bilateral Encounter Details Date Type Department Care Team (Late st Contact Info) Description 02/28/2013 10:00 AM CDT Office Visit [facility] - Rheumatology [address] [place] [address] Casper Smith MD PMR (polymyalgia rheumatica) (HCC) (Primary Dx); Fibromyalgia; DJD (degenerative joint disease) of knee; Knee pain, left; High risk medications (not anticoagulants) long-term use; PPD negative Social History Tobacco Use Types Packs/Day Years [...] Sign Reading Time Taken Comments Blood Pressure 124/78 02/28/2013 10:07 AM CDT Pulse 64 02/28/2013 10:07 AM CDT Temperature - - Respiratory Rate - - Oxygen Saturation - - Inhaled Oxygen Concentration - - Weight 105.4 kg (232 lb 6.4 oz) 013 10:07 AM CDT Height 162.6 cm (5' 4 ) 02/28/2013 10:0 7 AM CDT Body Mass Index 39.89 02/28/2013 10:07 AM CDT documented in this encounter Progress Notes * Casper Smith MD - 02/28/2013 5:26 PM CDT Subjective: Lexi Mcneil is a 57 y.o. female referred By Tim Altman for evaluation and treatment of chronic pain Who was seen today for Chief Complaint Patient presents with ??? Polymyalgia Rheumatica ??? Pain Knee bilateral she had left knee pain and swelling today in there was a moderate diffusion and joint line tenderness on ultrasound examination I injected Depo-Medrol into the left knee and spoke with her about right knee injection for future date. She remains on methotrexate which she seems to tolerate it does not seem to have the ideal effect. She remains on 10 mg daily prednisone at this time. CBC CMP testingevery 2-6 months is normal so far Health Assessment Questionnaire MHAQ: 4.3 Pain: 9 Global: 8 Rapid 3: 21.3 GI: 4.5 Fatigue: 9 Patient Active Problem List Diagnosis [...] pain Outpatient Prescriptions Prior to Visit Medication Status Sig Dispense Refill ??? carbidopa-levodopa CR (SINEMET CR) 50-200 MG tablet Active TAKE ONE TABLET BY MOUTH TWICE A DAY60 Tab 4 ??? methotrexate 2.5 MG tablet Active Take 8 Tabs by mouth every 7 days. 32 Tab 5 ??? gabapentin (NEURONTIN) 600 MG tablet Active Take 1-2 Tabs by mouth 3 times daily. 90 Tab 11 ??? folic acid (FOLVITE) 1 MG tablet Active Take 2 Tabs by mouth once daily. 60 Tab 12 ??? traMADol (ULTRAM) 50 MG tablet Active Take 2 Tabs by mouth 3 times daily. 180 Tab 6 ??? sertraline (ZOLOFT) 100 MG tablet Active Take 1 Tab by mouth once daily. 30 Tab 12 ??? nystatin (MYCOSTATIN) 421621 UNIT/ML suspension Active Take 5 mL by mouth 4 times daily. For thrush 280 mL 6 ??? vitamin D, cholecalciferol, 1000 UNIT tablet Active Take 1 Tab by mouth once daily. ??? acetaminophen (TYLENOL) 500 MG tablet Active [...] PO) Active Take by mouth daily. ??? predniSONE (DELTASONE) 10 MG tablet Discontinued TAKE 1 TABLET BY MOUTH TWICE DAILY FOR 5 DAYS THEN RETURN TO ONCEDAILY THEREAFTER. 30 Tab 3 Past Medical History Diagnosis Date ??? PMR [...] Coronary Artery Disease Mother Allergies as of 02/28/2013 - reviewed 02/28/2013 Allergen Reaction Noted ??? Amitriptyline 10/17/2010 ??? [...] addiction, suicide, insomnia, daytime sleepiness, Objective: BP: 124/78 Pulse: 64 Wt: 105.416 kg (232 lb 6.4 oz) BMI: 39.89 kg/m2 FiO2: Body mass index is 39.89 kg/(m^2). (negative exam findings are in normal text, positive findings are highlighted below) SJ=0 TJ=0 Nodules=0 GEN: anxious , confused , thin , obese, Cushingoid, ASSISTIVE DEVICE: bedside commode, cane, crutches, prosthesis, splint/brace, walker and wheelchair HEENT: INAJA , cerumen , anisocoria, retinal, hemorrhage, thrush, [...] abn 1st [facility], Flexor tend, Finger Deformity: [place] neck/ [place]outonniere/ Mallet finger, Ulnar deviation, Dupuytren's, [...] Diagnoses Name Primary? PMR (polymyalgia rheumatica) Yes ??? Fibromyalgia ??? DJD (degenerative joint disease) of knee ??? Knee pain, left ??? High risk medications (not anticoagulants) long-term use ??? PPD negative Immunization History Administered Date(s) Administered ??? Methylprednisolone 40mg 01/23/2011 ??? Methylprednlsolone 80mg 12/09/2011, 11/15/2012 ??? PPD 02/28/2013 ??? Synvisc Inj 12/02/2011, 12/02/2011, 12/09/2011, 12/09/2011, 12/16/2011, 12/16/2011 Plan: Orders Placed This Encounter ??? METHYLPREDNISOLONE ACETATE 80 MG INJ ??? TUBERCULOSIS (PPD) INTRADERMAL Read PPD in 72-96 ??? C-REACTIVE PROTEIN ??? CBC W AUTO DIFFERENTIAL ??? COMPREHENSIVE METABOLIC PANEL ??? SKIN TEST PPD - POINT OF CARE ??? AK DRAIN/INJECT LARGE JOINT/BURSA ??? predniSONE (DELTASONE) 10 MG tablet Si Tab once for 1 dose. TAKE 1 TABLET BY MOUTH TWICE DAILY FOR 5 DAYS THEN RETURN TO ONCEDAILY THEREAFTER. Dispense: 30 Tab Refill: 3 ??? methylPREDNISolone acetate (DEPO-MEDROL) 80 MG/ML injection Si mL by Intra-articular route once for 1 dose. Dispense: 1 mL Refill: 0 Plan Depo 80 left knee Zoloft 50-100 mg daily Gabapentin 600-1200 mg nightly Tylenol 1 gm tid Tramadol 100 mg tid Prednisone to 5-10 mg daily avoid as able Methotrexate 20 mg weekly Folic acid 1 mg daily Increase Sinemet CR 50/250 from qHS to bid F/U: Return in about 3 months (around 05/30/2013). Copy Dr Cathie Wilkerson NeuroOpth, Dr Reaves Neurology [facility] Rheumatology Ultrasound [facility] [address] [place] [address] Ultrasound apparatus: ENT Surgical MyLab5 with a [id number] or [id number] probe set at 10-18 mHz as clinically indicated based on site for visualization of the needle and patient anatomy Procedure: left knee injection mild effusion Mod DJD change PF noted Depo 80 mg given left knee Findings: After ultrasound evaluation of the [...] with any questions Casper Smith MD Office [phone] Back line [phone] * Yeny Oro MA - 02/28/2013 11:53 AM CDT Pt received PPD 0.1 ML ID in left forearm documented in this encounter Plan of Treatment Scheduled Orders Name Type Priority Associated Diagnoses Orde r Schedule SKIN TEST PPD - POINT OF CARE Point of Care Testing Routine PPD negative Ordered: 02/28/2013 documented as of this encounter Procedures Procedure Name Priority Date/Time Associated Diagnosis Comments C-REACTIVE PROTEIN Routine 02/28/2013 10 :30 AM CDT PMR (polymyalgia rheumatica) (HCC) CBC W AUTO DIFFERENTIAL Routine 02/28/2013 10:30 AM CDT High risk medications (not anticoagulants) long-term use COMPREHENSIVE METABOLIC PANEL Routine 02/28/2013 10:30 AM CDT High risk medications (not anticoagulants) long-term use documented in this encounter Results * (ABNORMAL) COMPREHENSIVE METABOLIC PANEL (02/28/2013 10:30 AM CDT) [facility] Glucose 86 65 - 99 mg/dL [facility] ACCOUNT BILL BUN 15 6 - 24 mg/dL [facility] ACCOUNT BILL Creatinine 0.82 0.57 - 1.00 mg/dL [facility] ACCOUNT BILL eGFR by MDRD 79 >59 mL/min/1.7 3 [facility] ACCOUNT BILL eGFR by MDRD 91 >59 mL/min/1.7 3 [facility] ACCOUNT BILL BUN/Creatinine Ratio 18 9 - 23 [facility] ACCOUNT BILL Sodium 139 134 - 144 mmol/L [facility] ACCOUNT BILL Potassium 4.5 3.5 - 5.2 mmol/L [facility] ACCOUNT BILL Chloride 100 97 - 108 mmol/L [facility] ACCOUNT BILL CO2 25 19 - 28 mmol/L [facility] ACCOUNT BILL Calcium 10.3(H) 8.7 - 10.2 mg/dL [facility] ACCOUNT BILL Protein Total 7.4 6.0 - 8.5 g/dL [facility] ACCOUNT BILL Albumin 4.7 3.5 - 5.5 g/dL [facility] ACCOUNT BILL Globulin Total 2.7 1.5 - 4.5 g/dL [facility] ACCOUNT BILL Albumin/Globulin Ratio 1.7 1.1 - 2.5 [facility] ACCOUNT BILL Bilirubin Total 0.5 0.0 - 1.2 mg/dL [facility] ACCOUNT BILL Alkaline Phosphatase 59 42 - 107 IU/L [facility] ACCOUNT BILL AST 57(H) 0 - 40 IU/L [facility] ACCOUNT BILL ALT 20 0 - 32 IU/L [facility] ACCOUNT BILL Blood specimen (specimen) BLOOD SPECIMEN / Unknown 02/28/2013 10:30 AM CDT 02/28/2013 1:00 PM CDT Narrative Resulting Agency Comment [facility] [address] ??[facility]ly [facility] [phone] Casper Smith MD LAB - CHEMISTRY CHELI SAAB [facility] ACCOUNT BILL * (ABNORMAL) CBC W AUTO DIFFERENTIAL (02/28/2013 10:30 AM CDT) WBC 7.7 3.4 - 10.8 x10E3/uL [facility] ACCOUNT BILL RBC 4.15 3.77 - 5.28 x10E6/uL [facility] ACCOUNT BILL Hemoglobin 13.8 11.1 - 15.9 g/dL [facility] ACCOUNT BILL Hematocrit 41.5 34.0 - 46.6 % [facility] ACCOUNT BILL MCV 100(H) 79 - 97 fL [facility] ACCOUNT BILL MCH 33.3(H) 26.6 - 33.0 pg [facility] ACCOUNT BILL MCHC 33.3 31.5 - 35.7 g/dL [facility] ACCOUNT BILL RDW 14.8 12.3 - 15.4 % [facility] ACCOUNT BILL Platelet Count 257 155 - 379 x10E3/uL [facility] ACCOUNT BILL Granulocytes % 56 40 - 74 % [facility] ACCOUNT BILL Lymphocytes % 32 14 - 46 % [facility] ACCOUNT BILL Monocytes % 11 4 - 12 % [facility] ACCOUNT BILL Eosinophils % 1 0 - 5 % [facility] ACCOUNT BILL Basophils % 0 0 - 3 % [facility] ACCOUNT BILL Immature Cells NOT NEEDED [facility] ACCOUNT BILL Comment:Ancillary determined the test is not needed Granulocytes Absolute 4.3 1.4 - 7.0 x10E3/uL [facility] ACCOUNT BILL Lymphocytes Absolute 2.4 0.7 - 3.1 x10E3/uL [facility] ACCOUNT BILL Monocytes Absolute 0.9 0.1 - 0.9 x10E3/uL [facility] ACCOUNT BILL [...] Blood specimen (specimen) BLOOD SPECIMEN / Unknown 02/28/2013 10:30 AM CDT 02/28/2013 1:00 PM CDT Narrative Resulting Agency Comment [facility] [place] [id number] [facility] ??[facility]ly [facility] [phone] Casper Smith MD LAB - HEMATOLOGY ORD ERABLES [facility] ACCOUNT BILL * (ABNORMAL) C-REACTIVE PROTEIN (02/28/2013 10:30 AM CDT) C-Reactive Protein 5.1(H) 0.0 - 4.9 mg/L [facility] ACCOUNT BILL Blood specimen (specimen) BLOOD SPECIMEN / Unknown 02/28/2013 10:30 AM CDT 02/28/2013 1:00 PM CDT Narrative Resulting Agency Comment [facility] [place] [address] [facility] ??[facility]ly [facility] [phone] Casper Smith MD LAB - CHEMISTRY CHELI SAAB [facility] ACCOUNT BILL documented in this encounter Visit Diagnoses Diagnosis PMR (polymyalgia rheumatica) (HCC)- Primary Polymyalgia rheumatica Fibromyalgia Mylagia and myositis, unspecified DJD (degenerative joint disease) of knee Osteoarthrosis, unspecified whether generalized or localized, lower leg Knee pain, left Pain in joint, lower leg High risk medications (not anticoagulants) long-term use Encounter for long-term (current) use of other medications PPD negative Screening examination for pulmonary tuberculosis documented in this encounter Care Teams Business Management Intern Relationship Specialty Start Date End Date Tim Altman MD PCP - General 10/18/10 [place] [address] [place] [address] Orthopedic Surgery 05/02/11 [place] [address] [place] [address] Rheumatology 08/20/11 documented as of this encounter
--- OUTSIDE RECORDS SUMMARY | 2024-06-17 14:45 | XMS_ITS | Encounter Summary ---
Author Organization [facility] Address [address] [place], [place] [address] [address] Care Team Providers Care Modeling Analyst Name Role Phone Tim Altman MD Primary Care Provider [phone] Vani Waldrop MD Unavailable [phone] Casper Smith MD Unavailable Unavailable Encounter Details Date Type Department Care Team (Late st Contact Info) Description 03/14/2013 Orders Only [facility] Medical [facility] - Rheumatology [address] [place] [id number] Haylee Plummer RN Polymyalgia rheumatica (HCC) Social [...] rheumatica documented in this encounter Care Teams Modeling Analyst Relationship Specialty Start Date End Date Tim Altman MD PCP - General 10/18/10 [place] [address] [phone] Orthopedic Surgery 05/02/11 [place] [address] [place] [phone] Rheumatology 08/20/11 documented as of this encounter
--- OUTSIDE RECORDS SUMMARY | 2024-06-17 14:45 | XMS_ITS | Encounter Summary ---
Author Organization [facility] Address [facility] [facility] [place] [address] Care Team Providers Care Plastic Fabricator Name Role Phone Tim Altman MD Primary Care Provider [phone] Vani Waldrop MD Unavailable [phone] Casper Smith MD Unavailable Unavailable Reason for Visit * Reason Onset Date Comments Lower Extremity Problem 01/09/2012 above th e knee where injection given, has a severe burning sensation Encounter Details Date Type Department Care Team (Late st Contact Info) Description 01/09/2012 Telephone [facility] Medical [facility] - Family Medicine [address] [place] [address] Casper Smith MD Lower Extremity Problem (above the knee where injection given, has a severe burning sensation) Social History Tobacco Use Types Packs/Day Years Used Date Smoking Tobacco: Never Alcohol Use Standard Drinks/Week Comments No 0 (1 standard drink = 0.6 oz pur e alcohol) Sex and Gender Information Value Date Recorded Sex Assigned at Not on file Gender Identity Not on file Sexual Orientation Not on file documented as of this encounter Miscellaneous Notes * Telephone Encounter - Eneida Nixon MA - 01/09/2012 1:09 PM CDT Informed patient of the message below. * Telephone Encounter - Lisa Reece MA - 01/09/2012 1:01 PM CDT Please inform patient that yes this should fade over the next day Try using ice on the sore area if needed * Telephone Encounter - Eneida Nixon MA - 01/09/2012 11:45 AM CDT Patient is calling in and stating above the knees, where she received the injections is just a burning sensation. Asking if this is Normal. documented in this encounter Plan of Treatment Not on file documented as of this encounter Visit Diagnoses Not on filedocumented in this encounter Care Teams Plastic Fabricator Relationship Specialty Start Date End Date Tim Altman MD PCP - General 10/18/10 [place] [address] [place] [phone] Orthopedic Surgery 05/02/11 [place] [address] [place] [phone] Rheumatology 08/20/11 documented as of this encounter
--- OUTSIDE RECORDS SUMMARY | 2024-06-17 14:45 | XMS_ITS | Encounter Summary ---
Author Organization [facility] Address [address] [place] [address] [place] [address] Care Team Providers Care Online Services Manager Name Role Phone Tim Altman MD Primary Care Provider [phone] Vani Waldrop MD Unavailable [phone] Casper Smith MD Unavailable Unavailable Reason for Visit * Reason Onset Date Comments MEDICATION REFILL 05/25/2012 Encounter Details Date Type Department Care Team (Late st Contact Info) Description 05/25/2012 Refill [facility] - Rheumatology [address] [place] [address] Casper Smith MD MEDICATION REFILL Social History [...] on filedocumented in this encounter Care Teams Online Services Manager Relationship Specialty Start Date End Date Tim Altman MD PCP - General 10/18/10 [place] [address] [place] [phone] Orthopedic Surgery 05/02/11 [place] [address] [place] [address] Rheumatology 08/20/11 documented as of this encounter
--- OUTSIDE RECORDS SUMMARY | 2024-06-17 14:45 | XMS_ITS | Encounter Summary ---
Author Organization [facility] Address [address] [place] [address] [place] [address] Care Team Providers Care Fire Chief Name Role Phone Tim Altman MD Primary Care Provider [phone] Vani Waldrop MD Unavailable [phone] Casper Smith MD Unavailable Unavailable Reason for Visit * Reason Comments Refill Request Encounter Details Date Type Department Care Team (Late st Contact Info) Description 04/29/2013 Refill [facility] - Rheumatology [address] [place] [address] Casper Smith MD Refill Request Social History [...] on filedocumented in this encounter Care Teams Fire Chief Relationship Specialty Start Date End Date Tim Altman MD PCP - General 10/18/10 [place] [address] [place] [phone] Orthopedic Surgery 05/02/11 [place] [address] [place] [address] Rheumatology 08/20/11 documented as of this encounter
--- OUTSIDE RECORDS SUMMARY | 2024-06-17 14:45 | XMS_ITS | Encounter Summary ---
Author Organization [facility] Address [address] [place] [address] [place] [address] Care Team Providers Care Records Supervisor Name Role Phone Tim Altman MD Primary Care Provider [phone] Vani Waldrop MD Unavailable [phone] Casper Smith MD Unavailable Unavailable Reason for Visit * Reason Comments Refill Request Encounter Details Date Type Department Care Team (Late st Contact Info) Description 12/15/2012 Refill [facility] - Rheumatology [address] [place] [id number] Casper Smith MD Refill Request Social History [...] on filedocumented in this encounter Care Teams Records Supervisor Relationship Specialty Start Date End Date Tim Altman MD PCP - General 10/18/10 [place] [address] [place] [phone] Orthopedic Surgery 05/02/11 [place] [address] [place] [address] Rheumatology 08/20/11 documented as of this encounter
--- OUTSIDE RECORDS SUMMARY | 2024-06-17 14:45 | XMS_ITS | Encounter Summary ---
Author Organization [facility] Address [address] [place] [address] [place] [address] Care Team Providers Care Aeronautics Teacher Name Role Phone Tim Altman MD Primary Care Provider [phone] Vani Waldrop MD Unavailable [phone] Casper Smith MD Unavailable Unavailable Reason for Visit * Treatment (Routine) - Closed Specialty Diagnoses / Procedures Referred By Dariela nettles Referred To Contact Infusion Therapy Nurse Diagnoses Polymyalgia rheumatica (HCC) Procedures [place] INFLIXIMAB INJECTION Casper Smith MD Referral ID Status Reason Start Date Expiration Date Visits Re quested Visits Authorized [id number] Closed 03/10/2013 06/14/2013 1 4 Encounter Details Date Type Department Care Team (Latest Contact Info) Description 04/25/2013 10:00 AM JOINT CREASER - 04/25/2013 11:59 PM JOINT CREASER Hospital Encounter [facility] - Rheumatology [address] [place] [id number] Casper Smith MD Discharge Disposition: Home or [...] Sign Reading Time Taken Comments Blood Pressure 142/90 04/25/2013 10:23 AM JOINT CREASER Pulse 90 04/25/2013 10:23 AM JOINT CREASER Temperature 36.6 ??C (97.8 ??F) 04/25/2013 10:[address] Respiratory Rate 16 04/25/2013 10:23 AM JOINT CREASER Oxygen Saturation - - Inhaled Oxygen Concentration - - Weight 106.6 kg (235 lb) 04/25/2013 10:23 AM JOINT CREASER Height 162.6 cm (5' 4 ) 04/25/2013 10:23 AM JOINT CREASER Body Mass Index 40.34 04/25/2013 10:23 AM JOINT CREASER documented in this encounter Discharge Instructions * Discharge Instructions* Document, Scanned - 05/10/2013 9:42 PM JOINT CREASER T CREASER documented in this encounter Medications at Time [...] times daily. 180 Tab 6 11/15/2012 04/29/2013 documented as of this encounter Progress Notes * Haylee Plummer RN - 04/25/2013 11:15 AM CST INFUSIONS Lexi Mcneil [id number] 04/25/2013 Patient questionnaire results Health Assessment Questionnaire MHAQ: 5.0 Pain: 8.5 Global: 8.5 Rapid 21.0 Sleep: 0 GI: 5.5 Fatigue:8.5 BP 142/90 Pulse 90 Temp 97.8 ??F Resp 16 Wt 106.595 kg (235 lb) BMI 40.34 kg/m2 Patient received: ?? 400 mgIV of Remicade and 250 cc normal saline given over 120 minutes. ?? Number of 24 gauge 3/4 inch placed in Right hand ?? 3 attempt(s). Patient monitored throughout procedure. Tolerated well? Yes Next treatment? 8 weeks Haylee Plummer RN T CREASER documented in this encounter Miscellaneous Notes * Miscellaneous Scans - Document, Scanned - 04/27/2013 5:17 AM CST T CREASER documented in this encounter Plan of Treatment Not on file documented as of this encounter Visit Diagnoses Not on filedocumented in this encounter Administered Medications Inactive Administered Medications - up to 3 most recent administrations Medication Order MAR Action Action Date Dose Rate Site inFLIXimab (REMICADE) 400 mg in NaCl 0.9 % infusion 400 mg, at 10-250 mL/hr, Intravenous, CONTINUOUS, Starting on Thu04/25/13 at 1015, Until Thu04/25/13 at 1214, Refrigerate. Infuse and titrate per protocol. Use with in-line filter. $ New Bag/Syringe 04/25/2013 10:50 AM JOINT CREASER 400 mg 130 mL/hr documented in this encounter Care Teams Aeronautics Teacher Relationship Specialty Start Date End Date Tim Altman MD PCP - General 10/18/10 [place] [address] [place] [phone] Orthopedic Surgery 05/02/11 [place] [address] [place] [address] Rheumatology 08/20/11 documented as of this encounter
--- OUTSIDE RECORDS SUMMARY | 2024-06-17 14:45 | XMS_ITS | Encounter Summary ---
Author Organization [facility] Address [address] [place] [address] [place] [address] Care Team Providers Care Talent Coordinator Name Role Phone Tim Altman MD Primary Care Provider [phone] Vani Waldrop MD Unavailable [phone] Casper Smith MD Unavailable Unavailable Reason for Visit * Reason Onset Date Comments Medication Problem 03/11/2013 Encounter Details Date Type Department Care Team (Late st Contact Info) Description 03/11/2013 Telephone [facility] - Rheumatology [address] [place] [address] Casper Smith MD Medication Problem Social History [...] encounter Miscellaneous Notes * Telephone Encounter - Casper Smith MD - 03/13/2013 8:47 AM CDT Suggesting hold off on Remicade * Telephone Encounter - Casper Smith MD - 03/11/2013 3:06 PM CDT She remains on MTX and prednisone She is CCP negative and documented in this encounter Plan of Treatment Not on file documented as of this encounter Visit Diagnoses Not on filedocumented in this encounter Care Teams Talent Coordinator Relationship Specialty Start Date End Date Tim Altman MD PCP - General 10/18/10 [place] [address] [place] [phone] Orthopedic Surgery 05/02/11 [place] [address] [address] [place] [phone] Rheumatology 08/20/11 documented as of this encounter
--- OUTSIDE RECORDS SUMMARY | 2024-06-17 14:45 | XMS_ITS | Encounter Summary ---
Author Organization [facility] Address [address] [place], [place] [address] [address] Care Team Providers Care Fnps Name Role Phone Tim Altman MD Primary Care Provider [phone]- [phone] Vani Waldrop MD Unavailable [phone] Casper Smith MD Unavailable Unavailable Encounter Details Date Type Department Care Team (Late st Contact Info) Description 03/28/2013 Orders Only [facility] Medical [facility] - Rheumatology [address] [place] [phone] Casper Smith MD Fibromyalgia ; PMR (polymyalgia rheumatica) (HCC) Social History Tobacco Use Types Packs/Day [...] Diagnosis Comments CBC W AUTO DIFFERENTIAL Routine 03/28/2013 11:00 AM CDT Fibromyalgia PMR (polymyalgia rheumatica) (HCC) COMPREHENSIVE METABOLIC PANEL Routine 03/28/2013 11:00 AM CDT Fibromyalgia PMR (polymyalgia rheumatica) (HCC) documented in this encounter Results * (ABNORMAL) COMPREHENSIVE METABOLIC PANEL (03/28/2013 11:00 AM CDT) Glucose 68 65 - 99 mg/dL [facility] ACCOUNT BILL BUN 18 6 - 24 mg/dL [facility] ACCOUNT BILL Creatinine 0.82 0.57 - 1.00 mg/dL [facility] ACCOUNT BILL eGFR by MDRD 79 >59 mL/min/1.7 3 [facility] ACCOUNT BILL eGFR by MDRD 91 >59 mL/min/1.7 3 [facility] ACCOUNT BILL BUN/Creatinine Ratio 22 9 - 23 [facility] ACCOUNT BILL Sodium 140 134 - 144 mmol/L [facility] ACCOUNT BILL Potassium 4.4 3.5 - 5.2 mmol/L [facility] ACCOUNT BILL Chloride 104 97 - 108 mmol/L [facility] ACCOUNT BILL CO2 18(L) 19 - 28 mmol/L [facility] ACCOUNT BILL Calcium 9.9 8.7 - 10.2 mg/dL [facility] ACCOUNT BILL Protein Total 7.1 6.0 - 8.5 g/dL [facility] ACCOUNT BILL Albumin 4.5 3.5 - 5.5 g/dL [facility] ACCOUNT BILL Globulin Total 2.6 1.5 - 4.5 g/dL [facility] ACCOUNT BILL Albumin/Globulin Ratio 1.7 1.1 - 2.5 [facility] ACCOUNT BILL Bilirubin Total 0.4 0.0 - 1.2 mg/dL [facility] ACCOUNT BILL Alkaline Phosphatase 56 42 - 107 IU/L [facility] ACCOUNT BILL AST 54(H) 0 - 40 IU/L [facility] ACCOUNT BILL ALT 22 0 - 32 IU/L [facility] ACCOUNT BILL Blood specimen (specimen) BLOOD SPECIMEN / Unknown 03/28/2013 11:00 AM CDT 03/28/2013 1:16 PM CDT Narrative Resulting Agency Comment [facility] [address] ??[facility] [id number] Casper Smith MD LAB - CHEMISTRY CHELI SAAB [facility] ACCOUNT BILL * (ABNORMAL) CBC W AUTO DIFFERENTIAL (03/28/2013 11:00 AM CDT) WBC 7.1 3.4 - 10.8 x10E3/uL [facility] ACCOUNT BILL RBC 4.08 3.77 - 5.28 x10E6/uL [facility] ACCOUNT BILL Hemoglobin 13.4 11.1 - 15.9 g/dL [facility] ACCOUNT BILL Hematocrit 40.0 34.0 - 46.6 % [facility] ACCOUNT BILL MCV 98(H) 79 - 97 fL [facility] ACCOUNT BILL MCH 32.8 26.6 - 33.0 pg [facility] ACCOUNT BILL MCHC 33.5 31.5 - 35.7 g/dL [facility] ACCOUNT BILL RDW 14.6 12.3 - 15.4 % [facility] ACCOUNT BILL Platelet Count 231 155 - 379 x10E3/uL [facility] ACCOUNT BILL Granulocytes % 38(L) 40 - 74 % [facility] ACCOUNT BILL Lymphocytes % 50(H) 14 - 46 % [facility] Monocytes % 11 4 - 12 % [facility] ACCOUNT BILL Eosinophils % 1 0 - 5 % [facility] ACCOUNT BILL Basophils % 0 0 - 3 % [facility] ACCOUNT BILL Immature Cells NOT NEEDED [facility] ACCOUNT BILL Comment:Ancillary determined the test is not needed Granulocytes Absolute 2.7 1.4 - 7.0 x10E3/uL [facility] ACCOUNT BILL Lymphocytes Absolute 3.5(H) 0.7 - 3.1 x10E3/uL [facility] ACCOUNT BILL Monocytes Absolute 0.8 0.1 - 0.9 x10E3/uL [facility] ACCOUNT BILL [...] Blood specimen (specimen) BLOOD SPECIMEN / Unknown 03/28/2013 11:00 AM CDT 03/28/2013 1:16 PM CDT Narrative Resulting Agency Comment [facility] [place] [id number] [facility] ??[facility] [id number] Casper Smith MD LAB - HEMATOLOGY ORD ERABLES [facility] ACCOUNT BILL documented in this encounter Visit Diagnoses Diagnosis Fibromyalgia- Primary Mylagia and myositis, unspecified PMR (polymyalgia rheumatica) (HCC) Polymyalgia rheumatica documented in this encounter Care Teams Fnps Relationship Specialty Start Date End Date Tim Altman MD PCP - General 10/18/10 [place] [address] [place] [phone] Orthopedic Surgery 05/02/11 [place] [address] [place] [phone] Rheumatology 08/20/11 documented as of this encounter
--- OUTSIDE RECORDS SUMMARY | 2024-06-17 14:45 | XMS_ITS | Encounter Summary ---
Author Organization [facility] Address [address] [place] [address] [place] [address] Care Team Providers Care Dean For Student Affairs Name Role Phone Tim Altman MD Primary Care Provider [phone] Vani Waldrop MD Unavailable [phone] Casper Garrido MD Unavailable Unavailable Reason for Visit * Reason Onset Date Comments Medication Check 12/29/2011 Encounter Details Date Type Department Care Team (Late st Contact Info) Description 12/29/2011 Telephone [facility] Medical [facility] - Family Medicine [address] [place] [address] [phone] Casper Garrido MD Medication Check Social History Tobacco Use Types Packs/Day Years [...] * Telephone Encounter - Hannah Edmondson - 12/29/2011 4:59 PM CDT Informed pt of note and she will call before the rx runs out for another refill * Telephone Encounter - Karly Snyder ANP - 12/29/2011 4:19 PM CDT This is fine. * Telephone Encounter - Hannah Edmondson - 12/29/2011 2:37 PM CDT She went her pcp today and he suggested dr garrido increase the folic acid to 2 mg daily documented in this encounter Plan of Treatment Not on file documented as of this encounter Visit Diagnoses Not on filedocumented in this encounter Care Teams Dean For Student Affairs Relationship Specialty Start Date End Date Tim Altman MD PCP - General 10/18/10 [place] [address] [place] [phone] Orthopedic Surgery 05/02/11 [place] [address] [place] [phone] Rheumatology 08/20/11 documented as of this encounter
--- OUTSIDE RECORDS SUMMARY | 2024-06-17 14:45 | XMS_ITS | Encounter Summary ---
Author Organization [facility] Address [address] [place] [address] [place] [address] Care Team Providers Care Junior Electrical Engineer Name Role Phone Tim Altman MD Primary Care Provider [phone] Vani Waldrop MD Unavailable [phone] Casper Smith MD Unavailable Unavailable Reason for Visit * Reason Onset Date Comments MEDICATION REFILL 02/02/2012 Encounter Details Date Type Department Care Team (Late st Contact Info) Description 02/02/2012 Refill [facility] - Rheumatology [address] [place] [phone] Casper Smith MD MEDICATION REFILL Social History [...] encounter Visit Diagnoses Diagnosis PMR (polymyalgia rheumatica) ([facility])- Primary Polymyalgia rheumatica documented in this encounter Care Teams Junior Electrical Engineer Relationship Specialty Start Date End Date Tim Altman MD PCP - General 10/18/10 [place] [address] [address] Orthopedic Surgery 05/02/11 [place] [address] [address] Rheumatology 08/20/11 documented as of this encounter
--- OUTSIDE RECORDS SUMMARY | 2024-06-17 14:45 | XMS_ITS | Encounter Summary ---
Author Organization [facility] Address [address] [place] [address] [place] [address] Care Team Providers Care Supervisor Packing Name Role Phone Tim Altman MD Primary Care Provider [phone] Vani Waldrop MD Unavailable [phone] Casper Smith MD Unavailable Unavailable Reason for Visit * Reason Onset Date Comments MEDICATION REFILL 11/28/2011 Encounter Details Date Type Department Care Team (Late st Contact Info) Description 11/28/2011 Refill [facility] - Rheumatology [address] [place] [phone] Casper Smith MD MEDICATION REFILL Social History [...] as of this encounter Visit Diagnoses Diagnosis Restless legs syndrome (RLS)- Primary documented in this encounter Care Teams Supervisor Packing Relationship Specialty Start Date End Date Tim Altman MD PCP - General 10/18/10 [place] [address] [place] [phone] Orthopedic Surgery 05/02/11 [place] [address] [address] Rheumatology 08/20/11 documented as of this encounter
--- OUTSIDE RECORDS SUMMARY | 2024-06-17 14:45 | XMS_ITS | Encounter Summary ---
Author Organization [facility] Address [address] [place] [address] [place] [address] Care Team Providers Care Supervisor Vegetable Farming Name Role Phone Tim Altman MD Primary Care Provider [phone] Vani Waldrop MD Unavailable [phone] Casper Smith MD Unavailable Unavailable Reason for Visit * Reason Comments Refill Request Encounter Details Date Type Department Care Team (Late st Contact Info) Description 05/30/2012 Refill [facility] Medical [facility] - Family Medicine [address] [place] [phone] Casper Smith MD Refill Request Social History [...] on filedocumented in this encounter Care Teams Supervisor Vegetable Farming Relationship Specialty Start Date End Date Tim Altman MD PCP - General 10/18/10 [place] [address] [place] [phone] Orthopedic Surgery 05/02/11 [place] [address] [place] [address] Rheumatology 08/20/11 documented as of this encounter
--- OUTSIDE RECORDS SUMMARY | 2024-06-17 14:45 | XMS_ITS | Encounter Summary ---
Author Organization [facility] Address [facility] [place] [address] Care Team Providers Care Upper And Bottom Lacer Hand Name Role Phone Tim Altman MD Primary Care Provider [phone] Vani Waldrop MD Unavailable [phone] Casper Smith MD Unavailable Unavailable Reason for Visit * Reason Comments Imm Inj Synvisc; bilateral k nees Encounter Details Date Type Department Care Team (Late st Contact Info) Description 12/16/2011 10:45 AM CDT Office Visit [facility] - Rheumatology [address] [place] [address] Casper Smith MD DJD (degenerative joint disease) of knee (Primary Dx); PMR (polymyalgia rheumatica) (FORM[facility]LY [facility]) Social History Tobacco Use Types Packs/Day Years Used Date Smoking Tobacco: Never Alcohol Use Standard Drinks/Week Comments No 0 (1 standard drink = 0.6 oz pur e alcohol) Sex and Gender Information Value Date Recorded Sex Assigned at Not on file Gender Identity Not on file Sexual Orientation Not on file documented as of this encounter Progress Notes * Casper Smith MD - 12/16/2011 11:33 AM CDT [facility] Rhe[facility] [address] [address] Ultrasound guided viscosupplement injection in knees to minimize pain and to optimize treatment effect by ensuring intraarticular injection and minimizing trauma to adjacent structures. IMP: 1. DJD (degenerative joint disease) of knee LA SONO GUIDE NEEDLE BIOPSY, Hylan (SYNVISC) 8 MG/ML INJ, HYALURONAN DERIV SYNVISC 1 MG INJ, HYALURONAN DERIV SYNVISC 1 MG INJ, LA DRAIN/INJECT LARGE JOINT/BURSA, Hylan (SYNVISC) 8 MG/ML INJ sapna 2. PMR (polymyalgia rheumatica) CBC W AUTO DIFFERENTIAL, HEPATIC FUNCTION PANEL, C-REACTIVE PROTEIN Ultrasound apparatus//Settings: US probe set at 10-18 [...] are available on request. Casper Smith MD [phone] Office documented in this encounter Plan of Treatment Not on file documented as of this encounter Procedures Procedure Name Priority Date/Time Associated Diagnosis Comments C-REACTIVE PROTEIN Routine 12/16/2011 PMR (polymyalgia rheumatica) (HCC) CBC W AUTO DIFFERENTIAL Routine 12/16/2011 PMR (polymyalgia rheumatica) (HCC) HEPATIC FUNCTION PANEL Routine 12/16/2011 PMR (polymyalgia rheumatica) (HCC) documented in this encounter Results * C-REACTIVE PROTEIN (12/16/2011) C-Reactive Protein 0.22 <0.80 mg/dL [facility] Comment: Please be advised that patients taking Carboxypenicillins may exhibit falsely decreased C-Reactive Protein levels due to an analytical interference in this assay. Test Performed at: [email or web address] [address] [place], [place] ??[phone] MUKUND GILES DO,MPH Blood specimen (specimen) BLOOD SPECIMEN / Unknown 12/16/2011 12/17/2011 4:19 AM CDT Casper Smith MD LAB - CHEMISTRY CHELI SAAB Performing Organization Address [facility] Co de Phone Number [facility] [address] [place] [address] * (ABNORMAL) HEPATIC FUNCTION PANEL (12/16/2011) [facility] [place] [facility] Protein Total 7.1 6.2 - 8.3 g/dL [...] 40 U/L [facility] Comment: Test Performed at: [email or web address] [address] [place], [place] ??[phone] MUKUND GILES DO,MPH Blood specimen (specimen) BLOOD SPECIMEN / Unknown 12/16/2011 12/17/2011 4:19 AM CDT Casper Smith MD LAB - CHEMISTRY CHELI SAAB Performing Organization Address City/[facility]/ZIP Co de Phone Number [facility] [address] [place] [address] * (ABNORMAL) CBC W AUTO DIFFERENTIAL (12/16/2011) [facility] [place] [facility] White Blood Cell Count 7.5 3.8 - 10.8 Thousand/ uL [facility] RBC 3.95 3.80 - 5.10 Million/u L [facility] Hemoglobin 13.5 11.7 - 15.5 g/dL [facility] Hematocrit 41.5 35.0 - 45.0 % [facility] MCV 105.0(H) 80.0 - 100.0 fL [facility] MCH 34.1(H) 27.0 - 33.0 pg [facility] MCHC 32.5 32.0 - 36.0 g/dL [facility] RDW 16.2(H) 11.0 - 15.0 % [facility] Platelet Count 193 140 - 400 Thousand/ uL [facility] Neutrophil Absolute 4035 1500 - 7800 cells/uL [facility] Lymphocytes Absolute 2655 850 - 3900 cells/uL [facility] Absolute Monocytes 758 200 - 950 cells/uL [facility] Eosinophils Absolute 30 15 - 500 cells/uL [facility] Basophils Absolute 23 0 - 200 cells/uL [facility] Granulocytes % 53.8 % [facility] Lymphocytes % 35.4 % [facility] Monocytes % 10.1 % [facility] Eosinophils % 0.4 % [facility] Basophils % 0.3 % [facility] Comment: Test Performed at: [email or web address] [id number] [place] [address] ??[phone] MUKUND GILES DO,MPH Blood specimen (specimen) BLOOD SPECIMEN / Unknown 12/16/2011 12/17/2011 4:19 AM CDT Casper Smith MD LAB - HEMATOLOGY ORD ERABLES Performing Organization Address City/State/[facility] Co de Phone Number [facility] [address] [place] [address] documented in this encounter Visit Diagnoses Diagnosis DJD (degenerative joint disease) of knee- Primary Osteoarthrosis, unspecified whether generalized or localized, lower leg PMR (polymyalgia rheumatica) (HCC) Polymyalgia rheumatica documented in this encounter Care Teams Upper And Bottom Lacer Hand Relationship Specialty Start Date End Date Tim Altman MD PCP - General 10/18/10 [place] [address] [phone] Orthopedic Surgery 05/02/11 [place] [address] [address] Rheumatology 08/20/11 documented as of this encounter
--- OUTSIDE RECORDS SUMMARY | 2024-06-17 14:45 | XMS_ITS | Encounter Summary ---
Author Organization [facility] Address [address] [place] [address] [place] [address] Care Team Providers Care Smoke Chaser Name Role Phone Tim Altman MD Primary Care Provider [phone] Vani Waldrop MD Unavailable [phone] Casper Smith MD Unavailable Unavailable Reason for Visit * Reason Comments Refill Request Encounter Details Date Type Department Care Team (Late st Contact Info) Description 07/04/2012 Refill [facility] - Rheumatology [address] [place] [address] Casper Smith MD Refill Request Social History [...] on filedocumented in this encounter Care Teams Smoke Chaser Relationship Specialty Start Date End Date Tim Altman MD PCP - General 10/18/10 [place] [address] [place] [phone] Orthopedic Surgery 05/02/11 [place] [address] [place] [address] Rheumatology 08/20/11 documented as of this encounter
--- OUTSIDE RECORDS SUMMARY | 2024-06-17 14:45 | XMS_ITS | Encounter Summary ---
Author Organization [facility] Address [facility] [place] [address] Care Team Providers Care Gas Engineer Name Role Phone Tim Altman MD Primary Care Provider [phone] Vani Waldrop MD Unavailable [phone] Casper Garrido MD Unavailable Unavailable Reason for Visit * Reason Onset Date Comments Pain Knee 05/25/2012 Encounter Details Date Type Department Care Team (Late st Contact Info) Description 05/25/2012 Telephone [facility] Medical [facility] - Rheumatology [address] [place] [address] Casper Garrido MD Pain Knee Social History Tobacco Use Types Packs/Day [...] Telephone Encounter - Yeny Oro MA - 05/25/2012 2:04 PM CST Spoke with pt regarding RX at pharmacy. Pt will try Medrol dosepak & call to schedule an appt if no better. PUMPER * Telephone Encounter - Yeny Oro MA - 05/25/2012 8:56 AM CST Having knee pain in left knee and a knot on the left side , the chiropractor told her to call dr garrido , she wants to know if she can increase one of the pain pills before she comes in ,her cell ph [phone] PUMPER * Telephone Encounter - Hannah Edmondson - 05/25/2012 8:43 AM CST Having knee pain in left knee and a knot on the left side , the chiropractor told her to call dr garrido , she wants to know if she can increase one of the pain pills before she comes in ,her cell ph [phone] PUMPER documented in this encounter Plan of Treatment Not on file documented as of this encounter Visit Diagnoses Not on filedocumented in this encounter Care Teams Gas Engineer Relationship Specialty Start Date End Date Tim Altman MD PCP - General 10/18/10 [place] [address] [place] [phone] Orthopedic Surgery 05/02/11 [place] [address] [place] [phone] Rheumatology 08/20/11 documented as of this encounter
--- OUTSIDE RECORDS SUMMARY | 2024-06-17 14:45 | XMS_ITS | Encounter Summary ---
Author Organization [facility] Address [facility] [place] [address] Care Team Providers Care Map Editor Name Role Phone Tim Altman MD Primary Care Provider [phone] Vani Waldrop MD Unavailable [phone] Casper Smith MD Unavailable Unavailable Reason for Referral * - Closed Specialty Diagnoses / Procedures Referred By Dariela nettles Referred To Contact Diagnoses Polyarthritis Procedures US EXTREMITY LEFT COMPLT NONVASC Casper Smith MD Referral ID Status Reason Start Date Expiration Date Visits Re quested Visits Authorized [id number] Closed 11/15/2012 05/14/2013 1 1 * - Closed Specialty Diagnoses / Procedures Referred By Dariela nettles Referred To Contact Diagnoses Polyarthritis Procedures US EXTREMITY NON VASCULAR RIGHT Casper Smith MD Referral ID Status Reason Start Date Expiration Date Visits Re quested Visits Authorized [id number] Closed 11/15/2012 05/14/2013 1 1 Reason for Visit * Reason Comments Lower Extremity Problem nodules on knees , ankle, & foot & pain Upper Extremity Problem nodules on elbow s & pain Encounter Details Date Type Department Care Team (Latest Contact Info) Description 11/15/2012 11:30 AM CDT Office Visit [facility] - Rheumatology [address] [place] [id number] Casper Smith MD Polyarthritis (Primary Dx); Right knee pain; Diplopia; PMR (polymyalgia rheumatica) (HCC); Fibromyalgia; Thrush; Fibromyalgia Social History Tobacco Use Types Packs/Day [...] Sign Reading Time Taken Comments Blood Pressure 130/78 11/15/2012 11:39 AM CDT Pulse 80 11/15/2012 11:39 AM CDT Temperature - - Respiratory Rate - - Oxygen Saturation - - Inhaled Oxygen Concentration - - Weight 104.2 kg (229 lb 12.8 oz) 2012 11:39 AM CDT Height 163.8 cm (5' 4.5 ) 11/15/2012 11 :39 AM CDT Body Mass Index 38.84 11/15/2012 11:39 AM CDT documented in this encounter Progress Notes * Casper Smith MD - 11/16/2012 6:15 PM CDT Subjective: Lexi Mcneil is a 57 y.o. female referred By Tim Altman for evaluation and treatment of chronic pain Who was seen today for Chief Complaint Patient presents with ??? Lower Extremity Problem nodules on knees, ankle, & foot & pain ??? Upper Extremity Problem nodules on elbows & pain Still frustrated by poor symptom control and recent development of right eye diplopia that flares at the end of long days. . She remains on MTX as a steroid sparing effect CBC CMP checked look at medication tolerability and antiacetylcholine receptor antibodies were ordered HER diagnostic US does not suggest there is ongoing joint damage and only suggests carpal tunnel This is not consistent withher complaints so I will write off CTS as erroneous unless we are compelled to get further testing due to hand pain and nighttime numbness in the future. I injected her painful knee today Health Assessment Questionnaire MHAQ: 4 Pain: 8 Global: 8 Rapid 3: 20 GI: 1 Fatigue: 6 Patient Active Problem List Diagnosis Date Noted [...] to Visit Medication Sig Dispense Refill ??? predniSONE (DELTASONE) 10 MG tablet TAKE 1 TABLET BY MOUTH TWICE DAILY FOR 5 DAYS THEN RETURN TO ONCEDAILY THEREAFTER. 30 Tab 3 ??? carbidopa-levodopa CR (SINEMET CR) 50-200 MG tablet Take 1 Tab by mouth 2 times daily. 60 Tab 5 ??? ALPRAZolam (XANAX) 0.5 MG tablet Take [...] ??? methotrexate 2.5 MG tablet TAKE 8 TABLETS BY MOUTH EVERY 7 DAYS BEFORE A MEAL. 32 Tab 5 ??? gabapentin (NEURONTIN) 600 MG tablet TAKE ONE TABLET BY MOUTH IN THE MORNING TWO IN THE DJOUGJO81 Tab 11 ??? methylPREDNISolone (MEDROL DOSEPAK) 4 MG tablet 1 Packet 0 ??? folic acid (FOLVITE) 1 MG tablet Take 2 Tabs by mouth once daily. 60 Tab 12 ??? traMADol (ULTRAM) 50 MG tablet Take 2 Tabs by mouth 3 times daily. 180 Tab 6 ??? sertraline (ZOLOFT) 100 MG tablet Take 1 Tab by mouth once daily. 30 Tab 12 ??? nystatin (MYCOSTATIN) 934402 UNIT/ML suspension Take 5 mL by mouth 4 times daily. For thrush 280 mL 6 ??? vitamin D, cholecalciferol, 1000 UNIT tablet Take by mouth daily. ??? acetaminophen (TYLENOL) 500 MG tablet Take 2 Tabs by mouth 3 times daily. Maximum allowable Acetaminophen amount = 4 Grams (4000 mg) / 24 hours. Past Medical History Diagnosis Date ??? PMR [...] Coronary Artery Disease Mother Allergies as of 11/15/2012 - reviewed 11/15/2012 Allergen Reaction Noted ??? Amitriptyline 10/17/2010 ??? [...] addiction, suicide, insomnia, daytime sleepiness, Objective: BP: 130/78 Pulse: 80 Wt: 104.237 kg (229 lb 12.8 oz) BMI: 38.84 kg/m2 FiO2: Body mass index is 38.84 kg/(m^2). (negative exam findings are in normal text, positive findings are highlighted below) SJ=0 TJ=0 Nodules=0 GEN: anxious , confused , thin , obese, Cushingoid, ASSISTIVE DEVICE: bedside commode, cane, crutches, prosthesis, splint/brace, walker and wheelchair HEENT: TAKOTNA , cerumen , anisocoria, retinal, hemorrhage, thrush, [...] abn 1st [facility], Flexor tend, Finger Deformity: [place] neck/ Boutonniere/ Mallet finger, Ulnar deviation, Dupuytren's, [...] and Knee Diagnosis: Encounter Diagnoses Name Primary? Polyarthritis Yes ??? Right knee pain ??? Diplopia ??? PMR (polymyalgia rheumatica) ??? Fibromyalgia ??? Thrush ??? Fibromyalgia Comment: long history Immunization History Administered Date(s) Administered ??? Methylprednisolone 40mg 01/23/2011 ??? Methylprednlsolone 80mg 12/09/2011 ??? Synvisc Inj 12/02/2011, 12/02/2011, 12/09/2011, 12/09/2011, 12/16/2011, 12/16/2011 Plan: Orders Placed This Encounter ??? US EXTREMITY NON VASCULAR RIGHT Standing Status: Future Number of Occurrences: 1 Standing Expiration Date: 11/15/2013 Order Specific Question: Exam to be performed? Answer: Per Radiologist protocol ??? US EXTREMITY LEFT COMPLT NONVASC Standing Status: Future Number of Occurrences: 1 Standing Expiration Date: 11/15/2013 Order Specific Question: Exam to be performed? Answer: Per Radiologist protocol ??? METHYLPREDNISOLONE ACETATE 80 MG INJ ??? CBC W AUTO DIFFERENTIAL ??? COMPREHENSIVE METABOLIC PANEL ??? C-REACTIVE PROTEIN ??? CYCLIC CITRUL PEPTIDE ANTIBODY IGG/IGA (CCP) ??? ACETYLCHOLINE RECEPTOR ANTIBODY PANEL ??? AR DRAIN/INJECT LARGE JOINT/BURSA ??? methylPREDNISolone acetate (DEPO-MEDROL) 80 MG/ML injection Si mL by Intra-articular route once for 1 dose. Dispense: 1 mL Refill: 0 ??? methotrexate 2.5 MG tablet Sig: Take 8 Tabs by mouth every 7 days. Dispense: 32 Tab Refill: 5 ??? gabapentin (NEURONTIN) 600 MG tablet Sig: Take 1-2 Tabs by mouth 3 times daily. Dispense: 90 Tab Refill: 11 ??? folic acid (FOLVITE) 1 MG tablet Sig: Take 2 Tabs by mouth once daily. Dispense: 60 Tab Refill: 12 ??? traMADol (ULTRAM) 50 MG tablet Sig: Take 2 Tabs by mouth 3 times daily. Dispense: 180 Tab Refill: 6 ??? sertraline (ZOLOFT) 100 MG tablet Sig: Take 1 Tab by mouth once daily. Dispense: 30 Tab Refill: 12 ??? nystatin (MYCOSTATIN) 617474 UNIT/ML suspension Sig: Take 5 mL by mouth 4 times daily. For thrush Dispense: 280 mL Refill: 6 ??? vitamin D, cholecalciferol, 1000 UNIT tablet Sig: Take 1 Tab by mouth once daily. ??? acetaminophen (TYLENOL) 500 MG tablet Sig: Take 2 Tabs by mouth 3 times daily. Maximum allowable Acetaminophen amount = 4 Grams (4000 mg)/ 24 hours. Plan Zoloft 50-100 mg daily Gabapentin 600-1200 mg nightly Tylenol 1 gm tid Tramadol 100 mg tid Prednisone to 5-10 mg daily Methotrexate 20 mg weekly as steroid sparing drug for RA Folic acid 1 mg daily Increase Sinemet CR 50/250 from qHS to bid Diagnostic ultrasound for causes of bilateral hand pain RO RA F/U: Return in about 3 months (around 02/15/2013). Copy Dr Cathie Wilkerson NeuroOpt, Dr Reaves Neurology [facility] [address] [place] [address] Ultrasound apparatus: Biosound MyLab5 with a [id number] or [id number] probe set at 10-18 mHz as clinically indicated based on site for visualization of the needle and patient anatomy Procedure: depo 80 right knee after bun panner views confirmed presence of effusion and mild DJD PF Findings: After ultrasound evaluation of the patient [...] with any questions Casper Smith MD Office [phone] Back line [phone] documented in this encounter Plan of Treatment Not on file documented as of this encounter Procedures Procedure Name Priority Date/Time Associated Diagnosis Comments ACETYLCHOLINE RECEPTOR ANTIBODY PANEL Routine 11/15/2012 1:02 PM CDT Diplopia CYCLIC CITRUL PEPTIDE ANTIBODY IGG/IGA (CCP) Routine 11/15/2012 12:59 PM CDT Polyarthritis C-REACTIVE PROTEIN Routine 11/15/2012 12 :59 PM CDT Polyarthritis CBC W AUTO DIFFERENTIAL Routine 11/15/2012 12:59 PM CDT Polyarthritis COMPREHENSIVE METABOLIC PANEL Routine 11/15/2012 12:59 PM CDT Polyarthritis documented in this encounter [...] the diagnostic impression are recorded by the epitaxial reactor technician under the direction of the attending physician [...] MD directly to discuss this case at [phone] or via TiVo messaging at: [facility]. Procedure Note Casper Smith MD - 11/16/2012 [...] effect the diagnostic impression arerecorded by the epitaxial reactor technician under the direction of the attendingphysician and [...] MD directly to discuss this case at [phone] [employer] messaging at: [facility]. Casper Smith MD US ORDERABLES * US EXTREMITY LEFT COMPLT NONVASC (11/16/2012 4:34 PM CDT) Anatomical Region Laterality Modality Lower Extremity, Upper Extremity Other Narrative 11/16/2012 4:34 PM CDT Casper Smith MD ? 11/16/2012 ??4:34 PM Bilateral Hand Ultrasound Protocol: Complete Bilateral Hand Study for RA Activity and Median nerve dimensions using MyLab5 with a 438 probe at 18mHz or [employer] M7 with a [id number] probe at 14 [...] the diagnostic impression are recorded by the epitaxial reactor technician under the direction of the attending physician [...] MD directly to discuss this case at [phone] or via TiVo messaging at: [facility]. Procedure Note Casper Smith MD - 11/16/2012 4:32 PM CDT Bilateral Hand Ultrasound Protocol: Complete Bilateral Hand Study for RA Activity and Median nerve dimensionsusing MyLab5 with a 438 probe at 18mHz or [facility] M7 with a L14-6s probeat 14 [...] effect the diagnostic impression arerecorded by the epitaxial reactor technician under the direction of the attendingphysician and [...] MD directly to discuss this case at [phone] [employer] messaging at: [facility]. Casper Smith MD ORDERABLES * ACETYLCHOLINE RECEPTOR [...] research purposes ? only by the assay's vp of global marketing. ??The performance ? characteristics of this product [...] PM CDT Narrative Resulting Agency Comment [facility] [address] ??[facility] [id number] Casper Smith MD LAB - SEROLOGY ORDER [...] PM CDT Narrative Resulting Agency Comment [facility] [address] ??[facility] [id number] Casper Smith MD LAB - SEROLOGY ORDER KAMILA Performing Organization Address City/[facility] Co de Phone Number [facility] ACCOUNT BILL * C-REACTIVE PROTEIN (11/15/2012 12:59 PM CDT) C-Reactive Protein 2.6 0.0 - 4.9 mg/L [facility] ACCOUNT BILL Blood specimen (specimen) BLOOD SPECIMEN / Unknown 11/15/2012 12:59 PM CDT 11/15/2012 7:37 PM CDT Narrative Resulting Agency Comment [facility] [address] ??[facility] [id number] Casper Smith MD LAB - CHEMISTRY CHELI SAAB Performing Organization Address City/[facility]/ZIP Co de Phone Number [facility] ACCOUNT BILL * (ABNORMAL) COMPREHENSIVE METABOLIC PANEL (11/15/2012 12:59 PM CDT) Glucose 80 65 - 99 mg/dL [facility] ACCOUNT BILL BUN 17 6 - 24 mg/dL [facility] ACCOUNT BILL Creatinine 0.81 0.57 - 1.00 mg/dL [facility] ACCOUNT BILL eGFR by MDRD 80 >59 mL/min/1.7 3 [facility] ACCOUNT BILL eGFR by MDRD 93 >59 mL/min/1.7 3 [facility] ACCOUNT BILL BUN/Creatinine Ratio 21 9 - 23 [facility] ACCOUNT BILL Sodium 140 134 - 144 mmol/L [facility] ACCOUNT BILL Potassium 4.0 3.5 - 5.2 mmol/L [facility] ACCOUNT BILL Chloride 100 97 - 108 mmol/L [facility] ACCOUNT BILL CO2 25 20 - 32 mmol/L [facility] ACCOUNT BILL Comment: ? Effective November 29, 2012, the reference interval for ? Carbon Dioxide, Total will be changing to: ? 0 - ??7 days ?18 - 28 ? 8 - 30 days ?17 - 27 ?31 d - 5 months ? 15 - 26 ? 6 m - up to 1 year ?? 15 - 25 ? 1 - 12 years ? 17 - 26 ? > 12 years ? 19 - 28 Calcium 9.5 8.7 - 10.2 mg/dL [facility] ACCOUNT BILL Protein Total 7.1 6.0 - 8.5 g/dL [facility] ACCOUNT BILL Albumin 4.5 3.5 - 5.5 g/dL [facility] ACCOUNT BILL Globulin Total 2.6 1.5 - 4.5 g/dL [facility] ACCOUNT BILL Albumin/Globulin Ratio 1.7 1.1 - 2.5 [facility] ACCOUNT BILL Bilirubin Total 0.4 0.0 - 1.2 mg/dL [facility] ACCOUNT BILL Alkaline Phosphatase 61 25 - 150 IU/L [facility] ACCOUNT BILL AST 50(H) 0 - 40 IU/L [facility] ACCOUNT BILL ALT 17 0 - 32 IU/L [facility] ACCOUNT BILL Blood specimen (specimen) BLOOD SPECIMEN / Unknown 11/15/2012 12:59 PM CDT 11/15/2012 7:37 PM CDT Narrative Resulting Agency Comment [facility] [address] ??[facility] [id number] Casper Smith MD LAB - CHEMISTRY CHELI SAAB [facility] ACCOUNT BILL * (ABNORMAL) CBC W AUTO DIFFERENTIAL (11/15/2012 12:59 PM CDT) WBC 6.5 4.0 - 10.5 x10E3/uL [facility] ACCOUNT BILL RBC 4.15 3.77 - 5.28 x10E6/uL [facility] ACCOUNT BILL Hemoglobin 13.5 11.1 - 15.9 g/dL [facility] ACCOUNT BILL Hematocrit 40.7 34.0 - 46.6 % [facility] ACCOUNT BILL MCV 98(H) 79 - 97 fL [facility] ACCOUNT BILL MCH 32.5 26.6 - 33.0 pg [facility] ACCOUNT BILL MCHC 33.2 31.5 - 35.7 g/dL [facility] ACCOUNT BILL RDW 15.7(H) 12.3 - 15.4 % [facility] ACCOUNT BILL Platelet Count 225 140 - 415 x10E3/uL [facility] ACCOUNT BILL Granulocytes % 50 40 - 74 % [facility] ACCOUNT BILL Lymphocytes % 41 14 - 46 % [facility] Monocytes % 8 4 - 13 % [facility] ACCOUNT BILL Eosinophils % 1 0 - 7 % [facility] ACCOUNT BILL Basophils % 0 0 - 3 % [facility] ACCOUNT BILL Immature Cells NOT NEEDED [facility] ACCOUNT BILL Comment:Ancillary determined the test is not needed Granulocytes Absolute 3.3 1.8 - 7.8 x10E3/uL [facility] ACCOUNT BILL Lymphocytes Absolute 2.7 0.7 - 4.5 x10E3/uL [facility] ACCOUNT BILL Monocytes Absolute 0.5 0.1 - 1.0 x10E3/uL [facility] ACCOUNT BILL [...] specimen (specimen) BLOOD SPECIMEN / Unknown 11/15/2012 12:59 PM CDT 11/15/2012 7:37 PM CDT Narrative Resulting Agency Comment [facility] [address] ??[facility] [id number] Casper Smith MD LAB - HEMATOLOGY ORD ERABLES [facility] ACCOUNT BILL documented in this encounter Visit Diagnoses Diagnosis Polyarthritis- Primary Unspecified polyarthropathy or polyarthritis, site unspecified Right knee pain Pain in joint, lower leg Diplopia PMR (polymyalgia rheumatica) ([facility]) Polymyalgia rheumatica Fibromyalgia Mylagia and myositis, unspecified Thrush Candidiasis of mouth Polyarthritis- Primary Unspecified polyarthropathy or polyarthritis, site unspecified Unspecified polyarthropathy or polyarthritis, site unspecified documented in this encounter Care Teams Map Editor Relationship Specialty Start Date End Date Tim Altman MD PCP - General 10/18/10 [place] [id number] [place] [id number] Orthopedic Surgery 05/02/11 [place] [id number] [address] [place] [address] Rheumatology 08/20/11 documented as of this encounter
--- OUTSIDE RECORDS SUMMARY | 2024-06-17 14:45 | XMS_ITS | Encounter Summary ---
Author Organization [facility] Address [address] [place] [address] [place] [address] Care Team Providers Care Flue Tile Press Operator Name Role Phone Tim Altman MD Primary Care Provider [phone] Vani Waldrop MD Unavailable [phone] Casper Smith MD Unavailable Unavailable Reason for Visit * Reason Comments Refill Request Encounter Details Date Type Department Care Team (Late st Contact Info) Description 08/03/2012 Refill [facility] - Rheumatology [address] [place] [id number] Casper Smith MD Refill Request Social History [...] on filedocumented in this encounter Care Teams Flue Tile Press Operator Relationship Specialty Start Date End Date Tim Altman MD PCP - General 10/18/10 [place] [id number] [place] [phone] Orthopedic Surgery 05/02/11 [place] [address] [place] [address] Rheumatology 08/20/11 documented as of this encounter
--- OUTSIDE RECORDS SUMMARY | 2024-06-17 14:46 | XMS_ITS | Encounter Summary ---
Author Organization [facility] Address [address] [place], [place] [address] [address] Care Team Providers Care Trumpet Teacher Name Role Phone Tim Altman MD Primary Care Provider [phone] Reason for Visit * Reason Onset Date Comments Pain 01/29/2011 Encounter Details Date Type Department Care Team (Late st Contact Info) Description 01/29/[address] [facility] Medical [facility] - Family Medicine [address] [place] [address] Casper Smith MD Pain Social History Tobacco Use Types Packs/Day Years Used Date Smoking Tobacco: Never Alcohol Use Standard Drinks/Week Comments No 0 (1 standard drink = 0.6 oz pur e alcohol) Sex and Gender Information Value Date Recorded Sex Assigned at Not on file Gender Identity Not on file Sexual Orientation Not on file documented as of this encounter Miscellaneous Notes * Telephone Encounter - Dimas Lundberg - 01/29/2011 1:13 PM CDT You are very welcome! * Telephone Encounter - Dimas Lundberg - 01/29/2011 11:42 AM CDT Pt can not make it in today, but made and appt for tomorrow morning * Telephone Encounter - Lisa Reece MA - 01/29/2011 11:36 AM CDT Can you please schedule patient with Karly today per Karly. * Telephone Encounter - Karly Snyder ANP - 01/29/2011 11:36 AM CDT Yes, schedule her with me this afternoon. * Telephone Encounter - Dimas Lundberg - 01/29/2011 9:06 AM CDT Pt called in stating that she was last week and saw Karly for an coritsone inj in her left knee. She stated that her knee is still swollen and she is having pain up her leg. Please call pt documented in this encounter Plan of Treatment Not on file documented as of this encounter Visit Diagnoses Not on filedocumented in this encounter Care Teams Trumpet Teacher Relationship Specialty Start Date End Date Tim Altman MD PCP - General 10/18/10 documented as of this encounter
--- OUTSIDE RECORDS SUMMARY | 2024-06-17 14:46 | XMS_ITS | Encounter Summary ---
Author Organization [facility] Address [address] [place], [place] [address] [address] Care Team Providers Care Vehicle Detailer Name Role Phone Tim Altman MD Primary Care Provider [phone] Vani Waldrop MD Unavailable [phone] Reason for Visit * Reason Onset Date Comments Medication Issue 05/16/2011 Encounter Details Date Type Department Care Team (Late st Contact Info) Description 05/16/2011 Telephone [facility] Medical [facility] - Rheumatology [address] [place] [address] Casper Smith MD Medication Issue Social History [...] * Telephone Encounter - Hannah Edmondson - 05/16/2011 3:45 PM CST Informed pt of note R/RELAY TECHNICIAN documented in this encounter Plan of Treatment Not on file documented as of this encounter Visit Diagnoses Not on filedocumented in this encounter Care Teams Vehicle Detailer Relationship Specialty Start Date End Date Tim Altman MD PCP - General 10/18/10 [place] [address] [place] [phone] Orthopedic Surgery 05/02/11 documented as of this encounter
--- OUTSIDE RECORDS SUMMARY | 2024-06-17 14:46 | XMS_ITS | Encounter Summary ---
Author Organization [facility] Address [address] [place], [place] [address] [address] Care Team Providers Care Continuous Improvement Facilitator Name Role Phone Tim Altman MD Primary Care Provider [phone] Reason for Visit * Reason Onset Date Comments MEDICATION REFILL 03/17/2011 Encounter Details Date Type Department Care Team (Late st Contact Info) Description 03/17/2011 Refill [facility] Medical [facility] - Rheumatology [address] [place] [address] Casper Smith MD MEDICATION REFILL Social History [...] * Telephone Encounter - Virginia Geller - 03/17/2011 9:15 AM CDT Pt called would like a refill on her flexerall 5 Mg called into her pharmacy. Pharmacy [phone]. Would like more than 14. documented in this encounter Plan of Treatment Not on file documented as of this encounter Visit Diagnoses Not on filedocumented in this encounter Care Teams Continuous Improvement Facilitator Relationship Specialty Start Date End Date Tim Altman MD PCP - General 10/18/10 documented as of this encounter
--- OUTSIDE RECORDS SUMMARY | 2024-06-17 14:46 | XMS_ITS | Encounter Summary ---
Author Organization [facility] Address [address] [place] [address] [place] [address] Care Team Providers Care Facility Engineer Name Role Phone Tim Altman MD Primary Care Provider [phone] Vani Waldrop MD Unavailable [phone] Casper Garrido MD Unavailable Unavailable Reason for Visit * Reason Onset Date Comments MEDICATION REFILL 10/20/2011 Prednisone Encounter Details Date Type Department Care Team (Late st Contact Info) Description 10/20/2011 Refill [facility] - Rheumatology [address] [place] [phone] Casper Garrido MD MEDICATION REFILL (Prednisone) Social History Tobacco Use Types Packs/Day Years [...] * Telephone Encounter - Manasa Cabrera - 10/20/2011 10:55 AM CDT Informed patient of message. She said doctor told her he rather do them. So she would have less pain with them. Send form to patient to fill out and mail back. * Telephone Encounter - Lisa Reece MA - 10/20/2011 10:34 AM CDT Inform patient her prescription has been sent to the pharmacy. As for the injections, she can get them from either doctor, but it would probably be best from Dr Lewis if she is the one who did them last.She will need to sign a form for that. Her next appt with dr garrido is 12/23/11 at 9 30 am. * Telephone Encounter - Eneida Nixon MA - 10/20/2011 9:34 AM CDT Patient calling in: Needing a refill on her Prednisone. She takes 7.5 mg. And is almost out of her 1 mg of Prednisone. Has enough 10 mg, that she cuts in half. Asking who is to give her, her next Synvisc injection. or Dr Waldrop. When is she due to come in again. Please call patient. documented in this encounter Plan of Treatment Not on file documented as of this encounter Visit Diagnoses Not on filedocumented in this encounter Care Teams Facility Engineer Relationship Specialty Start Date End Date Tim Altman MD PCP - General 10/18/10 [place] [address] [place] [phone] Orthopedic Surgery 05/02/11 [place] [address] [address] [place] [address] Rheumatology 08/20/11 documented as of this encounter
--- OUTSIDE RECORDS SUMMARY | 2024-06-17 14:46 | XMS_ITS | Encounter Summary ---
Author Organization [facility] Address [facility] [facility] [place] [address] Care Team Providers Care Event Decorator Name Role Phone Tim Altman MD Primary Care Provider [phone] Vani Waldrop MD Unavailable [phone] Reason for Visit * Reason Comments Upper Extremity Problem Encounter Details Date Type Department Care Team (Late st Contact Info) Description 05/15/2011 11:45 AM DISTILLING DEPARTMENT SUPERVISOR Procedure visit [facility] - Family Medicine [address] [place], [place] [id number] Pain in limb Social History Tobacco Use Types Packs/Day Years Used Date Smoking Tobacco: Never Alcohol Use Standard Drinks/Week Comments No 0 (1 standard drink = 0.6 oz pur e alcohol) Sex and Gender Information Value Date Recorded Sex Assigned at Not on file Gender Identity Not on file Sexual Orientation Not on file documented as of this encounter Procedure Notes * Casper Smith MD - 05/19/2011 2:46 PM CSTAssociated Order(s): US EXTREMITY NON VASCULAR RIGHT; US EXTREMITY LEFT COMPLT NONVASC Bilateral Hand Ultrasound Protocol: Complete Bilateral Hand Study for RA Activity and Median nerve dimensions using [employer] Ultrasound Apparatus with a 438 probe at 18mHz. This standardized study consists of dorsal and [...] carpal tunnel. An increase in median nerve diameter of over 4 mm immediately proximal the flexor retinaculum suggests significant Median nerve compression. Synovitis, erosions and power doppler signal are recorded as 0-3. Tenosynovitis is noted when present. Incidental findings of tophi, crystal deposition, that might effect the diagnostic impression are recordedby the senior linux systems engineer under the direction of the attending physician and interpreted by Dr Smith. Right Synovitis Erosion Doppler Left Synovitis Erosion Doppler 2M 2 2 0 2M 0 0 0 2P 0 1 0 2P 0 0 0 3M 2 0 0 3M 2 2 0 3P 0 0 0 3P 0 0 0 5M 0 2 0 5M 2 1 0 PW 2 0 0 PW 2 0 0 RMN 17-32 mm2 Bifid LMN 11-16mm2 Findings : Joint damage is mild erosions. Synovitis is compatible with moderate inflammation without PDUS. Median nerve changes are bilateral enlargement markedly worse on the right. . IMP: Inflammatory erosive arthritis R>>L carpal tunnel syndrome by US criteria Contact Casper Smith MD directly to discuss this case at [phone]. ILLING DEPARTMENT SUPERVISOR documented in this encounter Plan of Treatment Not on file documented as of this encounter Procedures Procedure Name Priority Date/Time Associated Diagnosis Comments US EXTREMITY NON VASCULAR RIGHT Routine 05/19/2011 2:50 PM DISTILLING DEPARTMENT SUPERVISOR Hand pain documented in this encounter Visit Diagnoses Diagnosis Pain in limb documented in this encounter Care Teams Event Decorator Relationship Specialty Start Date End Date Tim Altman MD PCP - General 10/18/10 [place] [id number] [id number] Orthopedic Surgery 05/02/11 documented as of this encounter
--- OUTSIDE RECORDS SUMMARY | 2024-06-17 14:46 | XMS_ITS | Encounter Summary ---
Author Organization [facility] Address [facility] [place] [address] Care Team Providers Care Ground Support Equipment Mechanic Name Role Phone Tim Altman MD Primary Care Provider [phone] Reason for Visit * Reason Onset Date Comments Results 04/30/2011 Encounter Details Date Type Department Care Team (Late st Contact Info) Description 04/30/2011 Telephone [facility] Orthopedics [address] [place] [id number] Vani Waldrop MD [address] [place] [address] Results Social History Tobacco Use Types Packs/Day Years Used Date Smoking Tobacco: Never Alcohol Use Standard Drinks/Week Comments No 0 (1 standard drink = 0.6 oz pur e alcohol) Sex and Gender Information Value Date Recorded Sex Assigned at Not on file Gender Identity Not on file Sexual Orientation Not on file documented as of this encounter Miscellaneous Notes * Telephone Encounter - Marilin Schulte - 04/30/2011 4:32 PM CST No answer at home ed delgadillo left message that [employer] insurance verification had been done, andpatient can call to schedule appointment at any time. [employer] connection was unable to ck the amount of deductible that has been met, patient can call to ck that, if she desires. If you have trouble making appt, ck with ed. ING SUPERVISOR * Telephone Encounter - Thi Barron - 04/30/2011 12:46 PM CST PATIENT CALLED TODAY BECAUSE YOU WERE CHECKING WITH HER INSURANCE, [employer], TO SEE IF THEY WOULD COVER [employer] ONE INJECTION. PLEASE CALL AT [phone]. ING SUPERVISOR documented in this encounter Plan of Treatment Not on file documented as of this encounter Visit Diagnoses Not on filedocumented in this encounter Care Teams Ground Support Equipment Mechanic Relationship Specialty Start Date End Date Tim Altman MD PCP - General 10/18/10 documented as of this encounter
--- OUTSIDE RECORDS SUMMARY | 2024-06-17 14:46 | XMS_ITS | Encounter Summary ---
Author Organization [facility] Address [facility] [facility] [place] [address] Care Team Providers Care Dye Weigher Name Role Phone Tim Altman MD Primary Care Provider [phone] Vani Waldrop MD Unavailable [phone] Reason for Visit * Reason Comments Fibromyalgia follow up Pain Knee bilateral; left wors e Headache Pain Extremity bilateral legs burn and jump at night Encounter Details Date Type Department Care Team (Late st Contact Info) Description 05/15/2011 2:00 PM REED PRESS FEEDER Office Visit [facility] - Rheumatology [address] [place] [address] Casper Smith MD PMR (polymyalgia rheumatica) (HCC) (Primary Dx); Fibromyalgia; DJD (degenerative joint disease) of knee; Restless legs syndrome (RLS); Hand pain; High risk medications (not anticoagulants) long-term use [...] Sign Reading Time Taken Comments Blood Pressure 128/86 05/15/2011 3:11 PM REED PRESS FEEDER Pulse 76 05/15/2011 3:11 PM REED PRESS FEEDER Temperature - - Respiratory Rate - - Oxygen Saturation - - Inhaled Oxygen Concentration - - Weight 115.1 kg (253 lb 12.8 oz) 05/15/2011 3:11 PM REED PRESS FEEDER Height 165.1 cm (5' 5 ) 05/15/2011 3:11 PM REED PRESS FEEDER Body Mass Index 42.23 05/15/2011 3:11 PM REED PRESS FEEDER documented in this encounter Progress Notes * Lisa Reece MA - 06/06/2011 1:15 PM CSTQuick Note: Pt aware of results. PRESS FEEDER * Lisa Reece MA - 05/16/2011 10:04 AM CSTQuick Note: Letter mailed to patient regarding lab results. PRESS FEEDER * Lisa Reece MA - 05/16/2011 10:04 AM CSTQuick Note: Letter mailed to patient regarding lab results. PRESS FEEDER * Casper Smith MD - 05/15/2011 3:34 PM CST Subjective: Lexi Mcneil is a 55 y.o. female referred By Tim Altman for evaluation and treatment of chronic pain Who was seen today for Chief Complaint Patient presents with ??? Fibromyalgia follow up ??? Pain Knee bilateral; left worse ??? Headache ??? Pain Extremity bilateral legs burn and jump at night She is having jaw pain that is better with persistent use of prednisone and flares when the prednisone is weaned She has a bad left knee and recently has been having generalized pain compatible with inflammatory disease like PMR but compounded by insomnia and RLS. She will start MTX and increase prednisone today I pj labs for any indication that MTX will not be ok for her. She will try Sinemet for her RLS Patient Active Problem List Diagnoses Date Noted [...] Refill ??? gabapentin (NEURONTIN) 600 MG tablet Take 1-2 Tabs by mouth at bedtime. 60 Tab 12 ??? predniSONE (DELTASONE) 10 MG tablet Take 1 Tab by mouth 2 times daily. BID for 5 days then return to once daily 30 Tab 4 ??? traMADol (ULTRAM) 50 MG tablet Take 2 Tabs by mouth 3 times daily. 180 Tab 6 ??? nystatin (MYCOSTATIN) 296347 UNIT/ML suspension Take 5 mL by mouth 4 times daily. For thrush 280 mL 6 ??? cyclobenzaprine (FLEXERIL) 5 MG TABS tablet Take 1 Tab by mouth nightly as needed. 20 Tab 0 ??? sertraline (ZOLOFT) 100 MG tablet Take 1 Tab by mouth once daily. Start with 1/2 pill daily then take one pill daily for maintenance 30 Tab 12 ??? ALPRAZolam (XANAX) 0.5 [...] Smoking status: Never Smoker ??? Smokeless tobacco: Not on file ??? Alcohol Use: No ??? Drug Use: No no IVDA ??? Sexually Active: Not Currently -- Male partner(s) Other Topics Concern ??? Not on file Social History Narrative ??? No narrative on file Family History Problem Relation Age of Onset ??? Osteoarthritis Mother ??? Hypertension Mother ??? Coronary Artery Disease Mother Allergies as of 05/15/2011 - reviewed 05/15/2011 Allergen Reaction Noted ??? Amitriptyline 10/17/2010 ??? [...] addiction, suicide, insomnia, daytime sleepiness, Objective: BP: 128/86 Pulse: 76 Wt: 253 lb 12.8 oz (115.123 kg) BMI: 42.23 kg/m2 FiO2: Body mass index is 42.23 kg/(m^2). (negative exam findings are in normal text, positive findings are highlighted below) SJ=0 TJ=0 Nodules=0 GEN: anxious , confused , thin , obese, Cushingoid, ASSISTIVE DEVICE: bedside commode, cane, crutches, prosthesis, splint/brace, walker and wheelchair HEENT: SAUK-SUIATTLE , cerumen , anisocoria, retinal, hemorrhage, thrush, [...] abn 1st [facility], Flexor tend, Finger Deformity: Elbert neck/ Boutonniere/ Mallet finger, Ulnar deviation, Dupuytren's, Nail abnormality: onycholysis, ingrown nail, Felon, Clubbing, Carpal / Ulnar tunnel: Tinnels / simin's, no Thenar atrophy, no Ulnar atrophy, NECK: reduced neck ROM with pain, spurling positive, occipital pain numbness tinels, SHOULDER: Joint: swelling pain warmth, AC e/t, passive ROM limited, impingement sign THORACIC: kyphosis, scoliosis, spinous process tenderness, LUMBAR: Reduced ROM, Tender paraspinous muscles , SLR positive below knee Elliot's index HIPS: tender trochanter normal ROM, normal femoral pulsation, reduced ROM KNEES: warm, tender, swollen, crepitation, valgus, Varus, unstable, flexion <90, Ext limit to 5 FEET/ANKLE: Pes planus, medial ankle swelling/tenderness, onycholysis, Tinea Pedis, plantar fascia,post tibial tendonitis, MTP tend/deformity, Hammer toes, Hallux valgus, TRIGGER POINTS: Low Cervical Region, Second Rib, Occiput, Trapezius Muscle, Supraspinatus Muscle, Lateral Epicondyle, Gluteal, Greater Trochanter and Knee Diagnosis: Encounter Diagnoses Name Primary? Fibromyalgia ??? PMR (polymyalgia rheumatica) ??? DJD (degenerative joint disease) of knee ??? Restless legs syndrome (RLS) ??? Hand pain ??? High risk medications (not anticoagulants) long-term use Immunization History Administered Date(s) Administered ??? Methylprednisolone 40mg 01/23/2011 Plan: Orders Placed This Encounter ??? US EXTREMITY NON VASCULAR RIGHT Order Specific Question: Exam to be performed? Answer: Per Radiologist protocol ??? US EXTREMITY LEFT COMPLT NONVASC Order Specific Question: Exam to be performed? Answer: Per Radiologist protocol ??? SED RATE WESTERGREN AUTO ??? CBC W AUTO DIFFERENTIAL ??? COMPREHENSIVE METABOLIC PANEL ??? C-REACTIVE PROTEIN ??? HEPATITIS B SURFACE ANTIGEN ??? HEPATITIS C ANTIBODY ??? carbidopa-levodopa CR (SINEMET CR) 50-200 MG tablet Sig: Take 1 Tab by mouth at bedtime. Dispense: 30 Tab Refill: 6 ??? methotrexate (RHEUMATREX) 2.5 MG tablet Sig: Take 8 Tabs by mouth every 7 days before meal. Dispense: 32 Tab Refill: 6 ??? folic acid (FOLVITE) 1 MG tablet Sig: Take 1 Tab by mouth once daily. Dispense: 30 Tab Refill: 12 Plan Zoloft 50-100 mg daily Gabapentin 600-1200 mg nightly Tylenol 1 gm tid Tramadol 100 mg tid Prednisone 10-20 mg daily Methotrexate 20 mg weekly Folic acid 1 mg daily CBC CMP CRP Hep B and C Trial sinemet CR qHS F/U: Return in about 2 months (around 07/16/2011). Copy Dr Cathie Wilkerson NeuroOpth, Dr Reaves Neurology PRESS FEEDER documented in this encounter Plan of Treatment Not on file documented as of this encounter Procedures Procedure Name Priority Date/Time Associated Diagnosis Comments C-REACTIVE PROTEIN Routine 05/15/2011 3: 16 PM REED PRESS FEEDER PMR (polymyalgia rheumatica) (HCC) ERYTHROCYTE SEDIMENTATION RATE Routine 05/15/2011 3:16 PM REED PRESS FEEDER PMR (polymyalgia rheumatica) (HCC) CBC W AUTO DIFFERENTIAL Routine 05/15/2011 3:16 PM REED PRESS FEEDER High risk medications (not anticoagulants) long-term use COMPREHENSIVE METABOLIC PANEL Routine 05/15/2011 3:16 PM REED PRESS FEEDER High risk medications (not anticoagulants) long-term use HEPATITIS B SURFACE ANTIGEN W RFLX CONFIRMATION Routine 05/15/2011 3:16 PM REED PRESS FEEDER High risk medications (not anticoagulants) long-term use HEPATITIS C ANTIBODY Routine 05/15/2011 3:16 PM REED PRESS FEEDER High risk medications (not anticoagulants) long-term use documented in this encounter Results * US EXTREMITY LEFT COMPLT NONVASC (05/19/2011 2:50 PM REED PRESS FEEDER) Anatomical Region Laterality Modality Lower Extremity, Upper Extremity Other Narrative 05/19/2011 2:50 PM REED PRESS FEEDER Casper Smith MD ? 05/19/2011 ??2:50 PM Bilateral Hand Ultrasound Protocol: Complete Bilateral Hand Study for RA Activity and Median nerve dimensions using MyLab5 Ultrasound Apparatus with a 438 probe at 18mHz. ??This standardized study consists of dorsal and volar views of the MCP (2,3,5) and PIP (2,3) joints, with medial and lateral views as clinically indicated to show erosive change. ?? The wrists are evaluated with medial dorsal views (combined as PW ) and a transverse volar view (AW). ??The median nerve is identified using a sweep technique starting in the mid forearm and measured at the proximal margin of the Quadratus and at the entrance to the carpal tunnel wrist crease immediately proximal to the carpal tunnel. ??An increase in median nerve diameter of over 4 mm immediately proximal the flexor retinaculum suggests significant Median nerve compression. ??Synovitis, erosions and power doppler signal are recorded as 0-3. ?? Tenosynovitis is noted when present. ??Incidental findings of tophi, crystal deposition, that might effect the diagnostic impression are recorded by the honing machine try out setter under the direction of the attending physician and interpreted by Dr Smith. Right ??Synovitis Erosion Doppler Left Synovitis Erosion Doppler 2M 2 2 0 2M 0 0 0 2P 0 1 0 2P 0 0 0 3M 2 0 0 3M 2 2 0 3P 0 0 0 3P 0 0 0 5M 0 2 0 5M 2 1 0 PW 2 0 0 PW 2 0 0 RMN 17-32 mm2 Bifid ?? LMN 11-16mm2 ?? Findings : Joint damage is mild erosions. ??Synovitis is compatible with moderate inflammation without PDUS. ??Median nerve changes are bilateral enlargement markedly worse on the right. . ?? IMP: Inflammatory erosive arthritis R>>L carpal tunnel syndrome by US criteria Contact Casper Smith MD directly to discuss this case at [phone]. Procedure Note Casper Smith MD - 05/19/2011 2:46 PM CST Bilateral Hand Ultrasound Protocol: Complete Bilateral Hand Study for RA Activity and Median nerve dimensionsusing MyLab5 Ultrasound Apparatus with a 438 probe at 18mHz. Thisstandardized study consists of dorsal and volar views of the MCP (2,3,5)and PIP (2,3) joints, with medial and lateral views as clinicallyindicated to show erosive change. The wrists are evaluated with medialdorsal views (combined as PW ) and a transverse volar view (AW). Themedian nerve is identified using a sweep technique starting in the midforearm and measured at the proximal margin of the Quadratus and at theentrance to the carpal tunnel wrist crease immediately proximal to thecarpal tunnel. An increase in median nerve diameter of over 4 mmimmediately proximal the flexor retinaculum suggests significant Mediannerve compression. Synovitis, erosions and power doppler signal arerecorded as 0-3. Tenosynovitis is noted when present. Incidentalfindings of tophi, crystal deposition, that might effect the diagnosticimpression are recorded by the honing machine try out setter under the direction of theattending physician and interpreted by Dr Smith. Right [...] damage is mild erosions. Synovitis is compatible withmoderate inflammation without PDUS. Median nerve changes are bilateralenlargement markedly worse on the right. . IMP: Inflammatory erosive arthritis R>>L carpal tunnel syndrome by US criteria Contact Casper Smith MD directly to discuss this case at [phone]. Casper Smith MD US ORDERABLES * US EXTREMITY NON VASCULAR RIGHT (05/19/2011 2:50 PM REED PRESS FEEDER) Anatomical Region Laterality Modality Lower Extremity, Upper Extremity Other Narrative 05/19/2011 2:50 PM REED PRESS FEEDER Casper Smith MD ? 05/19/2011 ??2:50 PM Bilateral Hand Ultrasound Protocol: Complete Bilateral Hand Study for RA Activity and Median nerve dimensions using MyLab5 Ultrasound Apparatus with a 438 probe at 18mHz. ??This standardized study consists of dorsal and volar views of the MCP (2,3,5) and PIP (2,3) joints, with medial and lateral views as clinically indicated to show erosive change. ?? The wrists are evaluated with medial dorsal views (combined as PW ) and a transverse volar view (AW). ??The median nerve is identified using a sweep technique starting in the mid forearm and measured at the proximal margin of the Quadratus and at the entrance to the carpal tunnel wrist crease immediately proximal to the carpal tunnel. ??An increase in median nerve diameter of over 4 mm immediately proximal the flexor retinaculum suggests significant Median nerve compression. ??Synovitis, erosions and power doppler signal are recorded as 0-3. ?? Tenosynovitis is noted when present. ??Incidental findings of tophi, crystal deposition, that might effect the diagnostic impression are recorded by the honing machine try out setter under the direction of the attending physician and interpreted by Dr Smith. Right ??Synovitis Erosion Doppler Left Synovitis Erosion Doppler 2M 2 2 0 2M 0 0 0 2P 0 1 0 2P 0 0 0 3M 2 0 0 3M 2 2 0 3P 0 0 0 3P 0 0 0 5M 0 2 0 5M 2 1 0 PW 2 0 0 PW 2 0 0 RMN 17-32 mm2 Bifid ?? LMN 11-16mm2 ?? Findings : Joint damage is mild erosions. ??Synovitis is compatible with moderate inflammation without PDUS. ??Median nerve changes are bilateral enlargement markedly worse on the right. . ?? IMP: Inflammatory erosive arthritis R>>L carpal tunnel syndrome by US criteria Contact Casper Smith MD directly to discuss this case at [phone]. Procedure Note Casper Smith MD - 05/19/2011 2:46 PM CST Bilateral Hand Ultrasound Protocol: Complete Bilateral Hand Study for RA Activity and Median nerve dimensionsusing MyLab5 Ultrasound Apparatus with a 438 probe at 18mHz. Thisstandardized study consists of dorsal and volar views of the MCP (2,3,5)and PIP (2,3) joints, with medial and lateral views as clinicallyindicated to show erosive change. The wrists are evaluated with medialdorsal views (combined as PW ) and a transverse volar view (AW). Themedian nerve is identified using a sweep technique starting in the midforearm and measured at the proximal margin of the Quadratus and at theentrance to the carpal tunnel wrist crease immediately proximal to thecarpal tunnel. An increase in median nerve diameter of over 4 mmimmediately proximal the flexor retinaculum suggests significant Mediannerve compression. Synovitis, erosions and power doppler signal arerecorded as 0-3. Tenosynovitis is noted when present. Incidentalfindings of tophi, crystal deposition, that might effect the diagnosticimpression are recorded by the honing machine try out setter under the direction of theattending physician and interpreted by Dr Smith. Right [...] damage is mild erosions. Synovitis is compatible withmoderate inflammation without PDUS. Median nerve changes are bilateralenlargement markedly worse on the right. . IMP: Inflammatory erosive arthritis R>>L carpal tunnel syndrome by US criteria Contact Casper Smith MD directly to discuss this case at [phone]. Casper Smith MD US ORDERABLES * HEPATITIS C ANTIBODY (05/15/2011 3:16 PM REED PRESS FEEDER) Hepatitis C Virus Antibody <0.1 0.0 - [...] BLOOD SPECIMEN / Unknown 05/15/2011 3:16 PM REED PRESS FEEDER 05/15/2011 8:51 PM REED PRESS FEEDER Narrative [facility] INSURANCE BILL - 05/16/2011 7:24 AM REED PRESS FEEDER A courtesy copy of this report has been sent to [phone]. Resulting Agency Comment [facility] [address] ??[facility] [phone] Casper Smith MD LAB - CHEMISTRY CHELI SAAB Performing Organization Address City/[facility]/ZIP Co de Phone Number [facility] INSURANCE BILL * HEPATITIS B SURFACE ANTIGEN (05/15/2011 3:16 PM REED PRESS FEEDER) Hepatitis B Virus Surface Antigen Negative Negative [facility] INSURANCE BILL Blood specimen (specimen) BLOOD SPECIMEN / Unknown 05/15/2011 3:16 PM REED PRESS FEEDER 05/15/2011 8:51 PM REED PRESS FEEDER Narrative [facility] INSURANCE BILL - 05/16/2011 7:24 AM REED PRESS FEEDER A courtesy copy of this report has been sent to [phone]. Resulting Agency Comment [facility] [address] [facility] ??[facility] [phone] Casper Smith MD LAB - CHEMISTRY CHELI SAAB Performing Organization Address City/[facility] Co de Phone Number [facility] INSURANCE BILL * C-REACTIVE PROTEIN (05/15/2011 3:16 PM REED PRESS FEEDER) C-Reactive Protein 1.0 0.0 - 4.9 mg/L [facility] INSURANCE BILL Blood specimen (specimen) BLOOD SPECIMEN / Unknown 05/15/2011 3:16 PM REED PRESS FEEDER 05/15/2011 8:51 PM REED PRESS FEEDER Narrative [facility] INSURANCE BILL - 05/16/2011 7:24 AM REED PRESS FEEDER A courtesy copy of this report has been sent to [phone]. Resulting Agency Comment [facility] [address] [facility] ??[facility] [phone] Casper Smith MD LAB - CHEMISTRY CHELI SAAB [facility] Organization Address City/State/ZIP Co de Phone Number [facility] INSURANCE BILL * (ABNORMAL) COMPREHENSIVE METABOLIC PANEL (05/15/2011 3:16 PM REED PRESS FEEDER) Glucose 76 65 - 99 mg/dL [facility] INSURANCE BILL BUN 18 6 - 24 mg/dL [facility] INSURANCE BILL Creatinine 0.85 0.57 - 1.00 mg/dL [facility] INSURANCE BILL eGFR by MDRD 77 >59 mL/min/1.7 3 [facility] INSURANCE BILL eGFR by MDRD 89 >59 mL/min/1.7 3 [facility] INSURANCE BILL Comment: Note: A persistent eGFR <60 mL/min/1.73 m2 (3 months or more) may indicate chronic kidney disease. An eGFR >59 mL/min/1.73 m2 with an elevated urine protein also may indicate chronic kidney disease. Calculated using CKD-EPI formula. BUN/Creatinine Ratio 21 9 - 23 [facility] INSURANCE BILL Sodium 139 135 - 145 mmol/L [facility] INSURANCE BILL Potassium 4.3 3.5 - 5.2 mmol/L [facility] INSURANCE BILL Chloride 101 97 - 108 mmol/L [facility] INSURANCE BILL CO2 23 20 - 32 mmol/L [facility] INSURANCE BILL Calcium 9.9 8.7 - 10.2 mg/dL [facility] INSURANCE BILL Protein Total 7.1 6.0 - 8.5 g/dL [facility] INSURANCE BILL Albumin 4.5 3.5 - 5.5 g/dL [facility] INSURANCE BILL Globulin Total 2.6 1.5 - 4.5 g/dL [facility] INSURANCE BILL Albumin/Globulin Ratio 1.7 1.1 - 2.5 [facility] INSURANCE BILL Bilirubin Total 0.3 0.0 - 1.2 mg/dL [facility] INSURANCE BILL Alkaline Phosphatase 47 25 - 150 IU/L [facility] INSURANCE BILL AST 58(H) 0 - 40 IU/L [facility] INSURANCE BILL ALT 29 0 - 40 IU/L [facility] INSURANCE BILL Blood specimen (specimen) BLOOD SPECIMEN / Unknown 05/15/2011 3:16 PM REED PRESS FEEDER 05/15/2011 8:51 PM REED PRESS FEEDER Narrative [facility] INSURANCE BILL - 05/16/2011 7:24 AM REED PRESS FEEDER A courtesy copy of this report has been sent to [phone]. Resulting Agency Comment [facility] [address] ??[facility] [phone] Casper Smith MD LAB - CHEMISTRY CHELI SAAB [facility] INSURANCE BILL * CBC W AUTO DIFFERENTIAL (05/15/2011 3:16 PM REED PRESS FEEDER) WBC 8.3 4.0 - 10.5 x10E3/uL [facility] INSURANCE BILL RBC 4.33 3.80 - 5.10 x10E6/uL [facility] INSURANCE BILL Hemoglobin 13.7 11.5 - 15.0 g/dL [facility] INSURANCE BILL Hematocrit 41.8 34.0 - 44.0 % [facility] INSURANCE BILL MCV 97 80 - 98 fL [facility] INSURANCE BILL MCH 31.6 27.0 - 34.0 pg [facility] INSURANCE BILL MCHC 32.8 32.0 - 36.0 g/dL [facility] INSURANCE BILL RDW 14.2 11.7 - 15.0 % [facility] INSURANCE BILL Platelet Count 215 140 - 415 x10E3/uL [facility] INSURANCE BILL Granulocytes % 56 40 - 74 % [facility] INSURANCE BILL Lymphocytes % 34 14 - 46 % [facility] INSURANCE BILL Monocytes % 9 4 - 13 % [facility] INSURANCE BILL Eosinophils % 1 0 - 7 % [facility] INSURANCE BILL Basophils % 0 0 - 3 % [facility] INSURANCE BILL Immature Cells NOT NEEDED [facility] INSURANCE BILL Comment:Ancillary determined the test is not needed Granulocytes Absolute 4.6 1.8 - 7.8 x10E3/uL [facility] INSURANCE BILL Lymphocytes Absolute 2.8 0.7 - 4.5 x10E3/uL [facility] INSURANCE BILL Monocytes Absolute 0.8 0.1 - 1.0 x10E3/uL [facility] INSURANCE BILL Eosinophils Absolute 0.1 0.0 - 0.4 x10E3/uL [facility] INSURANCE BILL Basophils Absolute 0.0 0.0 - 0.2 x10E3/uL [facility] INSURANCE BILL Immature Granulocytes 0 0 - 2 % [facility] INSURANCE BILL Immature Granulocytes Absolute 0.0 0.0 - 0.1 x10E3/uL [facility] INSURANCE BILL nRBC NOT NEEDED [facility] INSURANCE BILL Comment:Ancillary determined the test is not needed Comment Hematology NOT NEEDED [facility] INSURANCE BILL Comment:Ancillary determined the test is not needed Blood specimen (specimen) BLOOD SPECIMEN / Unknown 05/15/2011 3:16 PM REED PRESS FEEDER 05/15/2011 8:51 PM REED PRESS FEEDER Narrative [facility] INSURANCE BILL - 05/16/2011 7:24 AM REED PRESS FEEDER A courtesy copy of this report has been sent to [phone]. Resulting Agency Comment [facility] [place] [id number] [facility] ??[facility] [phone] Casper Smith MD LAB - HEMATOLOGY ORD Pledge51BLES [facility] INSURANCE BILL * SED RATE WESTERGREN AUTO (05/15/2011 3:16 PM REED PRESS FEEDER) Erythrocyte Sedimentation Rate Westergren 4 0 - 56 mm/hr [facility] INSURANCE BILL Blood specimen (specimen) BLOOD SPECIMEN / Unknown 05/15/2011 3:16 PM REED PRESS FEEDER 05/15/2011 8:51 PM REED PRESS FEEDER Narrative [facility] INSURANCE BILL - 05/16/2011 7:24 AM REED PRESS FEEDER A courtesy copy of this report has been sent to [phone]. Resulting Agency Comment [facility] [place] [id number] [facility] ??[facility] [phone] Casper Smith MD LAB - HEMATOLOGY ORD ERABLES [facility] INSURANCE BILL documented in this encounter Visit Diagnoses Diagnosis PMR (polymyalgia rheumatica) (HCC)- Primary Polymyalgia rheumatica Fibromyalgia Mylagia and myositis, unspecified DJD (degenerative joint disease) of knee Osteoarthrosis, unspecified whether generalized or localized, lower leg Restless legs syndrome (RLS) Hand pain Pain in limb High risk medications (not anticoagulants) long-term use Encounter for long-term (current) use of other medications Pain in limb documented in this encounter Care Teams Dye Weigher Relationship Specialty Start Date End Date Tim Altman MD PCP - General 10/18/10 [place] [id number] [address] [address] Orthopedic Surgery 05/02/11 documented as of this encounter
--- OUTSIDE RECORDS SUMMARY | 2024-06-17 14:46 | XMS_ITS | Encounter Summary ---
Author Organization [facility] Address [address] [place] [address] [place] [address] Care Team Providers Care Conference Planning Manager Name Role Phone Tim Altman MD Primary Care Provider [phone] Vani Waldrop MD Unavailable [phone] Reason for Visit * Reason Onset Date Comments Medication Issue 05/16/2011 GABAPENTIN Encounter Details Date Type Department Care Team (Late st Contact Info) Description 05/16/2011 Telephone [facility] Medical [facility] - Family Medicine [address] [place] [address] Casper Smith MD Medication Issue (GABAPENTIN) Social History Tobacco Use Types Packs/Day Years Used Date Smoking Tobacco: Never Alcohol Use Standard Drinks/Week Comments No 0 (1 standard drink = 0.6 oz pur e alcohol) Sex and Gender Information Value Date Recorded Sex Assigned at Not on file Gender Identity Not on file Sexual Orientation Not on file documented as of this encounter Miscellaneous Notes * Telephone Encounter - Lisa Reece MA - 05/16/2011 3:38 PM PAST DUE ACCOUNTS CLERK Order for gabapentin sent to pharmacy. Ok to take 1 tab am and 2 tabs pm. DUE ACCOUNTS CLERK * Telephone Encounter - Eneida Nixon MA - 05/16/2011 1:35 PM CST Patient states: called in this morning. RE: Gabapentin. States: Needs to take 1 in the a.m. , and 2at HS. States can't function, if she doesn't take 1 in the morning. Call patient. DUE ACCOUNTS CLERK documented in this encounter Plan of Treatment Not on file documented as of this encounter Visit Diagnoses Diagnosis Insomnia- Primary Insomnia, unspecified documented in this encounter Care Teams Conference Planning Manager Relationship Specialty Start Date End Date Tim Altman MD PCP - General 10/18/10 [place] [id number] [place] [id number] Orthopedic Surgery 05/02/11 documented as of this encounter
--- OUTSIDE RECORDS SUMMARY | 2024-06-17 14:46 | XMS_ITS | Encounter Summary ---
Author Organization [facility] Address [address] [place], [place] [address] [address] Care Team Providers Care Redeye Gunner Name Role Phone Tim Altman MD Primary Care Provider [phone] Reason for Visit * Reason Onset Date Comments Follow-up 10/28/2010 Encounter Details Date Type Department Care Team (Late st Contact Info) Description 10/28/[address] [facility] - Rheumatology [address] [place] [id number] Casper Smith MD Follow-up Social History Tobacco [...] Telephone Encounter - Lisa Reece MA - 10/29/2010 11:20 AM CDT Informed patient her paperwork has been sent for scanning. Pt states it is okay she will call if she needs anything further. * Telephone Encounter - Daiana Nation MA - 10/28/2010 4:44 PM CDT Left message letting patient know I will have to check with doctor regarding the paperwork when he is back in the office tomorrow * Telephone Encounter - Manasa Cabrera - 10/28/2010 10:01 AM CDT Patient called in. She is needing a copy of the paperwork she brought into us from [facility]CP[facility]. documented in this encounter Plan of Treatment Not on file documented as of this encounter Visit Diagnoses Not on filedocumented in this encounter Care Teams Redeye Gunner Relationship Specialty Start Date End Date Tim Altman MD PCP - General 10/18/10 documented as of this encounter
--- OUTSIDE RECORDS SUMMARY | 2024-06-17 14:46 | XMS_ITS | Encounter Summary ---
Author Organization [facility] Address [address] [place] [address] [place] [address] Care Team Providers Care Manager Sports Name Role Phone Tim Altman MD Primary Care Provider [phone] Reason for Visit * Reason Onset Date Comments Erroneous encounter-disregard 02/12/2011 Encounter Details Date Type Department Care Team (Late st Contact Info) Description 02/12/2011 Refill [facility] Medical [facility] - Family Medicine [address] [place] [id number] Sebas Forrester MD [address] [place] [id number] Erroneous encounter-disregard Social History Tobacco Use Types [...] filedocumented in this encounter Care Teams Manager Sports Relationship Specialty Start Date End Date Tim Altman MD PCP - General 10/18/10 documented as of this encounter
--- OUTSIDE RECORDS SUMMARY | 2024-06-17 14:46 | XMS_ITS | Encounter Summary ---
Author Organization [facility] Address [address] [place] [address] [place] [address] Care Team Providers Care Waiter/Waitress Dining Car Name Role Phone Tim Altman MD Primary Care Provider [phone]- [phone] Reason for Visit * Reason Comments Pain Arm Pain Hand both SHAKING Rash arms and inside of m outh Swelling Facial right side Headache Encounter Details Date Type Department Care Team (Latest Contact Info) Description 12/24/2010 2:00 PM CDT Office Visit [facility] - Rheumatology [address] [place] [address] Casper Smith MD Fibromyalgia (Primary Dx); DJD (degenerative joint disease) of knee; Insomnia Social History Tobacco Use Types Packs/Day Years Used Date Smoking Tobacco: Never Alcohol Use Standard Drinks/Week Comments No 0 (1 standard drink = 0.6 oz pur e alcohol) Sex and Gender Information Value Date Recorded Sex Assigned at Not on file Gender Identity Not on file Sexual Orientation Not on file documented as of this encounter Progress Notes * Casper Smith MD - 12/24/2010 2:11 PM CDT Subjective: Lexi Mcneil is a 55 y.o. female referred By Tim Altman for evaluation and treatment of chronic pain Who was seen today for Chief Complaint Patient presents with ??? Pain Arm ??? Pain Hand both ??? SHAKING ??? Rash arms and inside of mouth ??? Swelling Facial right side ??? Headache She should remain on meds for Fibromyalgia and anxiety depression. I will switch her to Zoloft and continue tramadol and Tylenol for pain. She will use gabapentin at bed time to improve sleep She didnot benefit from steroids and had normal CRP I will have her wean off it Health Assessment Questionnaire MHAQ: 3.7 Pain: 8.5 Global: 8 Rapid 3: 20.2 GI: 8 Fatigue: 8 Patient Active Problem List Diagnoses Date Noted ??? DJD (degenerative joint disease) of knee 10/18/2010 occasional flare ??? Insomnia 10/18/2010 ??? Fibromyalgia 10/17/2010 10/17/2010 chart abstraction ??? PMR (polymyalgia rheumatica) 10/17/2010 Hx of TA biopsy showing mild inflammation on chronic steroids Outpatient Prescriptions Prior to Visit Medication Sig Dispense Refill ??? metoprolol tartrate IR (LOPRESSOR) 25 MG tablet Take 25 mg by mouth 2 times daily. ??? predniSONE (DELTASONE) 10 MG tablet Take by mouth 2 times daily. ??? omeprazole (PRILOSEC) 40 MG capsule Take 40 mg by mouth 2 times daily. ??? Cyanocobalamin (B-12) 1000 MCG TBCR Take by mouth daily. ??? Calcium Carbonate-Vit D-Min (CALCIUM 1200 PO) Take by mouth daily. ??? vitamin D, cholecalciferol, 1000 UNIT tablet Take by mouth daily. ??? traMADol (ULTRAM) 50 MG tablet Take 2 Tabs by mouth 3 times daily. 180 Tab 6 ??? acetaminophen (TYLENOL) 500 MG tablet Take 2 Tabs by mouth 3 times daily. Maximum allowable Acetaminophen amount = 4 Grams (4000 mg) / 24 hours. ??? gabapentin (NEURONTIN) 600 MG tablet Take 1 Tab by mouth 3 times daily. 90 Tab 12 ??? ALPRAZolam (XANAX) 0.5 MG tablet Take 0.5 mg by mouth 2 times daily. Past Medical History Diagnosis Date ??? PMR (polymyalgia rheumatica) ??? Fibromyalgia ??? RSD (reflex sympathetic dystrophy) Past Surgical History Procedure Date ??? Pchg temporal artery ligatn or bx ??? Ankle [...] Coronary Artery Disease Mother Allergies as of 12/24/2010 - reviewed 12/24/2010 Allergen Reaction Noted ??? Amitriptyline 10/17/2010 ??? [...] abuse, addiction, suicide, insomnia, daytime sleepiness, Objective: FiO2: There is no height or weight on file to calculate BMI. (negative exam findings are in normal text, positive findings are highlighted below) SJ=0 TJ=0 Nodules=0 GEN: anxious , confused , thin , obese, Cushingoid, ASSISTIVE DEVICE: bedside commode, cane, crutches, prosthesis, splint/brace, walker and wheelchair HEENT: QAGAN TAY[place]UNGIN , cerumen , anisocoria, retinal, hemorrhage, thrush, [...] abn 1st CMC, Flexor tend, Finger Deformity: [place] neck/ Boutonniere/ Mallet finger, Ulnar deviation, Dupuytren's, [...] Encounter Diagnoses Name Primary? Fibromyalgia Yes ??? DJD (degenerative joint disease) of knee ??? Insomnia There is no immunization history on file for this patient. Plan: Orders Placed This Encounter ??? gabapentin (NEURONTIN) 600 MG tablet Sig: Take 1-2 Tabs by mouth at bedtime. Dispense: 60 Tab Refill: 12 ??? sertraline (ZOLOFT) 100 MG tablet Sig: Take 1 Tab by mouth once daily. Start with 1/2 pill daily then take one pill daily for maintenance Dispense: 30 Tab Refill: 12 Plan Start zoloft 50-100 mg daily Try gabapentin 600-1200 mg nightly Tylenol 1 gm tid Tramadol 100 mg tid Wean prednisone 10-5 mg daily F/U: Return in about 2 months (around 02/24/2011). Copy Dr Cathie Wilkerson NeuroOpth, Dr Reaves Neurology documented in this encounter Plan of Treatment Not on file documented as of this encounter Visit Diagnoses Diagnosis Fibromyalgia- Primary Mylagia and myositis, unspecified DJD (degenerative joint disease) of knee Osteoarthrosis, unspecified whether generalized or localized, lower leg Insomnia Insomnia, unspecified documented in this encounter Care Teams Waiter/Waitress Dining Car Relationship Specialty Start Date End Date Tim Altman MD PCP - General 10/18/10 documented as of this encounter
--- OUTSIDE RECORDS SUMMARY | 2024-06-17 14:46 | XMS_ITS | Encounter Summary ---
Author Organization [facility] Address [facility] [place] [address] Care Team Providers Care Level Designer Name Role Phone Tim Altman MD Primary Care Provider [phone] Reason for Visit * Reason Onset Date Comments MEDICATION REFILL 03/03/2011 Encounter Details Date Type Department Care Team (Late st Contact Info) Description 03/03/2011 Refill [facility] - Family Medicine [address] [place] [id number] Casper Smith MD MEDICATION REFILL Social History [...] on filedocumented in this encounter Care Teams Level Designer Relationship Specialty Start Date End Date Tim Altman MD PCP - General 10/18/10 documented as of this encounter
--- OUTSIDE RECORDS SUMMARY | 2024-06-17 14:46 | XMS_ITS | Encounter Summary ---
Author Organization [facility] Address [address] [place], [place] [address] [address] Care Team Providers Care Household Appliance Mechanic Name Role Phone Tim Altman MD Primary Care Provider [phone] Reason for Visit * Reason Comments Fibromyalgia Polymyalgia Rheumatica Headache Nausea Pain Joint Pain Neck rt Numbness rt arm Pain Facial rt Encounter Details Date Type Department Care Team (Latest Contact Info) Description 10/18/2010 1:15 PM CDT Office Visit [facility] - Rheumatology [address] [place] [address] Casper Smith MD Fibromyalgia (Primary Dx); PMR (polymyalgia rheumatica) (HCC); DJD (degenerative joint disease) of knee; Insomnia [...] Sign Reading Time Taken Comments Blood Pressure 126/88 10/18/2010 1:23 PM CDT Pulse 76 10/18/2010 1:23 PM CDT Temperature - - Respiratory Rate - - Oxygen Saturation - - Inhaled Oxygen Concentration - - Weight 108 kg (238 lb) 10/18/2010 1:23 PM CDT Height 165.1 cm (5' 5 ) 10/18/2010 1:23 PM CDT Body Mass Index 39.61 10/18/2010 1:23 PM CDT documented in this encounter Progress Notes * Daiana Nation MA - 10/28/2010 11:04 AM CDTQuick Note: Letter mailed to patient regarding lab results. * Casper Smith MD - 10/22/2010 8:58 AM CDTQuick Note: Labs are mostly normal We will talk about the results after you see Dr Brand. * Casper Smith MD - 10/18/2010 2:08 PM CDT Subjective: Lexi Mcneil is a 55 y.o. female referred By Tim Altman for evaluation and treatment of chronic pain Who was seen today for Chief Complaint Patient presents with ??? Fibromyalgia ??? Polymyalgia Rheumatica ??? Headache ??? Nausea ??? Pain Joint ??? Pain Neck rt ??? Numbness rt arm ??? Pain Facial rt She was being treated for Fibromyalgia for several years and had issues related to failed surgery for a ankle trauma the occured on hte job several years ago and resulted in her being stuck in a prolonged disability argument with her prior employers. HEr disability claim remains unsettled today. She has recently developed severe pain in her right face that pulse and has resulted in multiple dental evaluations and a visit to [facility] who triggered a Rheum consult and temporal artery biopsy tow years ago. Since then she has stayed o a low dose of prednisone for PMR since a negative Temporal artery biopsy showed Minimal inflammation and high dose steroids were stopped. She gets good benefit from neurontin and higher dose of tramadol She claims stopping steroids causes increased pain symptoms.She Dr Jean Paul who increased prednisone and documented normal ESR and CRP. She feels better on the higher dose steroids yet complains of poorly controlled pain so it is not clear to me what good the steroids have done Health Assessment Questionnaire MHAQ: 3.3 Pain: 9 Global: 8 Rapid 3: 20.3 GI: 3 Fatigue: 4 Patient Active Problem List Diagnoses Date Noted ??? Fibromyalgia [729.1AV] 10/17/2010 10/17/2010 chart abstraction ??? PMR (polymyalgia rheumatica) [725Q] 10/17/2010 Hx of TA biopsy showing mild inflammation on chronic steroids No outpatient prescriptions prior to encounter Past Medical History Diagnosis Date ??? PMR [...] Coronary Artery Disease Mother Allergies as of 10/18/2010 - reviewed 10/18/2010 Allergen Reaction Noted ??? Vicodin (hydrocodone-acetaminophen) 10/17/2010 ??? Sulfa drugs 10/17/2010 ??? Amitriptyline 10/17/2010 ??? Provera (medroxyprogesterone acetate) 10/17/2010 ??? Crestor (rosuvastatin) 10/17/2010 ??? Vytorin 10/17/2010 ??? Codeine 10/18/2010 ??? Zinc 10/18/2010 ??? Other 10/18/2010 ??? Pcn (penicillins) Rash 10/17/2010 (Note [...] addiction, suicide, insomnia, daytime sleepiness, Objective: BP: 126/88 Pulse: 76 Wt: 238 lb (107.956 kg) BMI: 39.61 kg/m2 FiO2: Body mass index is 39.61 kg/(m^2). (negative exam findings are in normal text, positive findings are highlighted below) SJ=0 TJ=0 Nodules=0 GEN: anxious , confused , thin , obese, Cushingoid, ASSISTIVE DEVICE: bedside commode, cane, crutches, prosthesis, splint/brace, walker and wheelchair HEENT: ALGAACIQ , cerumen , anisocoria, retinal, hemorrhage, thrush, [...] abn 1st [facility]MC, Flexor tend, Finger Deformity: [place] neck/ Boutonniere/ Mallet finger, Ulnar deviation, Dupuytren's, [...] Greater Trochanter and Knee Diagnosis: Encounter Diagnoses Code Name Primary? 729.1AV Fibromyalgia Yes ??? 725Q PMR (polymyalgia rheumatica) ??? 715.96L DJD (degenerative joint disease) of knee ??? 780.52A Insomnia There is no immunization history on file for this patient. Plan: Orders Placed This Encounter ??? CBC W AUTO DIFFERENTIAL ??? COMPREHENSIVE METABOLIC PANEL ??? C-REACTIVE PROTEIN ??? RHEUMATOID FACTOR BLOOD QUANTITATIVE ??? TSH ??? ESTHELA BLOOD SCREEN W/REFLEX TITER ??? traMADol (ULTRAM) 50 MG tablet Sig: Take 2 Tabs by mouth 3 times daily. Dispense: 180 Tab Refill: 6 ??? acetaminophen (TYLENOL) 500 MG tablet Sig: Take 2 Tabs by mouth 3 times daily. Maximum allowable Acetaminophen amount = 4 Grams (4000 mg)/ 24 hours. ??? gabapentin (NEURONTIN) 600 MG tablet Sig: Take 1 Tab by mouth 3 times daily. Dispense: 90 Tab Refill: 12 Plan Start Nortriptyline 50-100 mg daily Increase Gabapentin 600 mg tid Increase Tramadol 50-100 mg tid Tylenol 1 gm tid Continue Prednisone 10 mg bid Until you see Dr Brand but I would be inclined to stop it if we agreed on alternative reasons for her flare of acute headache / face pain in the setting of chronic Fibromyalgia syndrome. CBC CMP CRP TSH Will share consult letter with with Dr Brand and Jean Paul I think TMJ and Trigeminal neuralgia are alternative explanations for her facial pain that could fall in the Fibromyalgia world and enable stoppage of prednisone F/U: Data Unavailable Copy Dr Cathie Wilkerson Neuroopth, Dr Reaves Neurology documented in this encounter Plan of Treatment Not on file documented as of this encounter Procedures Procedure Name Priority Date/Time Associated Diagnosis Comments CANDIDA STAINING PATTERNS REFLEXED Routine 10/18/2010 1:56 PM CDT PMR (polymyalgia rheumatica) (HCC) RHEUMATOID FACTOR BLOOD QUANTITATIVE Routine 10/18/2010 1:56 PM CDT PMR (polymyalgia rheumatica) (HCC) C-REACTIVE PROTEIN Routine 10/18/2010 1: 56 PM CDT PMR (polymyalgia rheumatica) (HCC) ESTHELA BLOOD SCREEN W/REFLEX TITER Routine 10/18/2010 1:56 PM CDT PMR (polymyalgia rheumatica) (HCC) CBC W AUTO DIFFERENTIAL Routine 10/18/2010 1:56 PM CDT PMR (polymyalgia rheumatica) (HCC) COMPREHENSIVE METABOLIC PANEL Routine 10/18/2010 1:56 PM CDT PMR (polymyalgia rheumatica) (HCC) TSH Routine 10/18/2010 1:56 PM CDT PMR (polymyalgia rheumatica) (HCC) documented in this encounter Results * (ABNORMAL) CANDIDA STAINING PATTERNS (PO REF [...] (Smooth) ? Histone ? Speckled ? Sm, SCRAP CRANE OPERATOR, SCL-70, ??SLE,MCTD,Scleroderma,Sjogrens ? SS-A/SS-B ? Nucleolar ?SCL-70, PM-1/SCL ??High titers Scleroderma Poly- ? myositis/Scleroderma Overlap ? Centromere ?? Centromere ?PSS w/Crest syndrome variable ?? 10/18/2010 1:56 PM CDT 10/18/2010 9:12 PM CDT Narrative Resulting Agency Comment [facility] [place] [address] [place] [address] ??[facility] [id number] Casper Smith MD LAB - PATHOLOGY/CYTO LOGY ORDERABLES [facility] ACCOUNT BILL * ESTHELA BLOOD SCREEN W/REFLEX TITER (10/18/2010 1:56 PM CDT) ESTHELA See patterns [facility] ACCOUNT BILL Comment: ?Negative ?? <1:80 ?Borderline ??1:80 ?Positive ?? >1:80 BLOOD SPECIMEN / Unknown 10/18/2010 1:56 PM CDT 10/18/2010 9:12 PM CDT Narrative Resulting Agency Comment [facility] [place] [address] ??[place] [phone] Casper Smith MD LAB - CHEMISTRY CHELI SAAB [facility] ACCOUNT BILL * TSH (10/18/2010 1:56 PM CDT) TSH 1.160 0.450 - 4.500 uIU/mL [facility] ACCOUNT BILL BLOOD SPECIMEN / Unknown 10/18/2010 1:56 PM CDT 10/18/2010 9:12 PM CDT Narrative Resulting Agency Comment [facility] [place] [address] ??[place] [phone] Casper Smith MD LAB - CHEMISTRY CHELI SAAB [facility] ACCOUNT BILL * RHEUMATOID FACTOR BLOOD QUANTITATIVE (10/18/2010 1:56 PM CDT) Rheumatoid Factor 9.4 0.0 - 13.9 IU/mL [facility] ACCOUNT BILL BLOOD SPECIMEN / Unknown 10/18/2010 1:56 PM CDT 10/18/2010 9:12 PM CDT Narrative Resulting Agency Comment [facility] [place] [address] ??[place] [phone] Casper Smith MD LAB - CHEMISTRY CHELI SAAB [facility] ACCOUNT BILL * C-REACTIVE PROTEIN (10/18/2010 1:56 PM CDT) C-Reactive Protein <0.3 0.0 - 4.9 mg/L [facility] ACCOUNT BILL BLOOD SPECIMEN / Unknown 10/18/2010 1:56 PM CDT 10/18/2010 9:12 PM CDT Narrative Resulting Agency Comment [facility] [place] [address] ??[place] [phone] Casper Smith MD LAB - CHEMISTRY CHELI SAAB [facility] Organization Address City/State/ZIP Co de Phone Number [facility] ACCOUNT BILL * (ABNORMAL) COMPREHENSIVE METABOLIC PANEL (10/18/2010 1:56 PM CDT) Glucose 117(H) 65 - 99 mg/dL [facility] ACCOUNT BILL BUN 23 6 - 24 mg/dL [facility] ACCOUNT BILL Creatinine 0.99 0.57 - 1.00 mg/dL [facility] ACCOUNT BILL eGFR by MDRD 64 >59 mL/min/1.7 3 [facility] ACCOUNT BILL eGFR by MDRD 74 >59 mL/min/1.7 3 [facility] ACCOUNT BILL Comment: Note: A persistent eGFR <60 mL/min/1.73 m2 (3 months or more) may indicate chronic kidney disease. An eGFR >59 mL/min/1.73 m2 with an elevated urine protein also may indicate chronic kidney disease. Calculated using CKD-EPI formula. BUN/Creatinine Ratio 23 9 - 23 [facility] ACCOUNT BILL Sodium 141 135 - 145 mmol/L [facility] ACCOUNT BILL Potassium 4.3 3.5 - 5.2 mmol/L [facility] ACCOUNT BILL Chloride 100 97 - 108 mmol/L [facility] ACCOUNT BILL CO2 25 20 - 32 mmol/L [facility] ACCOUNT BILL Calcium 9.8 8.7 - 10.2 mg/dL [facility] ACCOUNT BILL Protein Total 7.2 6.0 - 8.5 g/dL [facility] ACCOUNT BILL Albumin 4.4 3.5 - 5.5 g/dL [facility] ACCOUNT BILL Globulin Total 2.8 1.5 - 4.5 g/dL [facility] ACCOUNT BILL Albumin/Globulin Ratio 1.6 1.1 - 2.5 [facility] ACCOUNT BILL Bilirubin Total 0.5 0.0 - 1.2 mg/dL [facility] ACCOUNT BILL Alkaline Phosphatase 56 25 - 150 IU/L [facility] ACCOUNT BILL AST 48(H) 0 - 40 IU/L [facility] ACCOUNT BILL ALT 28 0 - 40 IU/L [facility] ACCOUNT BILL BLOOD SPECIMEN / Unknown 10/18/2010 1:56 PM CDT 10/18/2010 9:12 PM CDT Narrative Resulting Agency Comment [facility] [address] ??[facility] [id number] Casper Smith MD LAB - CHEMISTRY CHELI SAAB [facility] Organization Address City/State/ZIP Co de Phone Number [facility] ACCOUNT BILL * (ABNORMAL) CBC W AUTO DIFFERENTIAL (10/18/2010 1:56 PM CDT) WBC 9.4 4.0 - 10.5 x10E3/uL [facility] ACCOUNT BILL RBC 4.55 3.80 - 5.10 x10E6/uL [facility] ACCOUNT BILL Hemoglobin 14.5 11.5 - 15.0 g/dL [facility] ACCOUNT BILL Hematocrit 43.7 34.0 - 44.0 % [facility] ACCOUNT BILL MCV 96 80 - 98 fL [facility] ACCOUNT BILL MCH 31.9 27.0 - 34.0 pg [facility] ACCOUNT BILL MCHC 33.2 32.0 - 36.0 g/dL [facility] ACCOUNT BILL RDW 15.2(H) 11.7 - 15.0 % [facility] ACCOUNT BILL Platelet Count 208 140 - 415 x10E3/uL [facility] ACCOUNT BILL Granulocytes % 59 40 - 74 % [facility] ACCOUNT BILL Lymphocytes % 31 14 - 46 % [facility] ACCOUNT BILL Monocytes % 10 4 - 13 % [facility] ACCOUNT BILL Eosinophils % 0 0 - 7 % [facility] ACCOUNT BILL Basophils % 0 0 - 3 % [facility] ACCOUNT BILL Immature Cells NOT NEEDED [facility] ACCOUNT BILL Comment:Ancillary determined the test is not needed Granulocytes Absolute 5.5 1.8 - 7.8 x10E3/uL [facility] ACCOUNT BILL Lymphocytes Absolute 3.0 0.7 - 4.5 x10E3/uL [facility] ACCOUNT BILL Monocytes Absolute 0.9 0.1 - 1.0 x10E3/uL [facility] ACCOUNT BILL Eosinophils Absolute 0.0 0.0 - 0.4 x10E3/uL [facility] ACCOUNT BILL Basophils Absolute 0.0 0.0 - 0.2 x10E3/uL [facility] ACCOUNT BILL Immature Granulocytes 0 0 - 1 % [facility] ACCOUNT BILL Immature Granulocytes Absolute 0.0 0.0 - 0.1 x10E3/uL [facility] ACCOUNT BILL nRBC NOT NEEDED [facility] ACCOUNT BILL Comment:Ancillary determined the test is not needed Comment Hematology NOT NEEDED [facility] ACCOUNT BILL Comment:Ancillary determined the test is not needed BLOOD SPECIMEN / Unknown 10/18/2010 1:56 PM CDT 10/18/2010 9:12 PM CDT Narrative Resulting Agency Comment [facility] [address] ??[facility] [id number] Casper Smith MD LAB - HEMATOLOGY ORD ERABLES [facility] ACCOUNT BILL documented in this encounter Visit Diagnoses Diagnosis Fibromyalgia- Primary Mylagia and myositis, unspecified PMR (polymyalgia rheumatica) (HCC) Polymyalgia rheumatica DJD (degenerative joint disease) of knee Osteoarthrosis, unspecified whether generalized or localized, lower leg Insomnia Insomnia, unspecified documented in this encounter Care Teams Household Appliance Mechanic Relationship Specialty Start Date End Date Tim Altman MD PCP - General 10/18/10 documented as of this encounter
--- OUTSIDE RECORDS SUMMARY | 2024-06-17 14:46 | XMS_ITS | Encounter Summary ---
Author Organization [facility] Address [address] [place] [address] [place] [address] Care Team Providers Care Engineering Technology Instructor Name Role Phone Tim Altman MD Primary Care Provider [phone] Vani Waldrop MD Unavailable [phone] Reason for Visit * Reason Onset Date Comments MEDICATION REFILL 07/11/2011 Encounter Details Date Type Department Care Team (Late st Contact Info) Description 07/11/2011 Refill [facility] - Rheumatology [address] [place] [id number] Casper Smith MD MEDICATION REFILL Social History [...] unspecified documented in this encounter Care Teams Engineering Technology Instructor Relationship Specialty Start Date End Date Tim Altman MD PCP - General 10/18/10 [place] [id number] [address] [place] [id number] Orthopedic Surgery 05/02/11 documented as of this encounter
--- OUTSIDE RECORDS SUMMARY | 2024-06-17 14:46 | XMS_ITS | Encounter Summary ---
Author Organization [facility] Address [address] [place], [place] [address] [address] Care Team Providers Care Computer Programmer Analyst Name Role Phone Tim Altman MD Primary Care Provider [phone] Reason for Visit * Reason Onset Date Comments MEDICATION REFILL 02/12/2011 Encounter Details Date Type Department Care Team (Late st Contact Info) Description 02/12/2011 Refill [facility] - Family Medicine [address] [place] [address] Casper Smith MD MEDICATION REFILL Social History [...] * Telephone Encounter - Dimas Lundberg - 02/12/2011 10:33 AM CDT LR 01/23/11 REESE 01/30/11 documented in this encounter Plan of Treatment Not on file documented as of this encounter Visit Diagnoses Not on filedocumented in this encounter Care Teams Computer Programmer Analyst Relationship Specialty Start Date End Date Tim Altman MD PCP - General 10/18/10 documented as of this encounter
--- OUTSIDE RECORDS SUMMARY | 2024-06-17 14:46 | XMS_ITS | Encounter Summary ---
Author Organization [facility] Address [address] [place], [place] [address] [address] Care Team Providers Care Pole Peeling Machine Operator Name Role Phone Tim Altman MD Primary Care Provider [phone] Reason for Visit * Reason Onset Date Comments Medication Issue 01/07/2011 Encounter Details Date Type Department Care Team (Late st Contact Info) Description 01/07/2011 Telephone [facility] - Rheumatology [address] [place] [address] Casper Smith MD Medication Issue Social History [...] Telephone Encounter - Lisa Reece MA - 01/07/2011 3:11 PM CDT Informed pt to take 10 mg prednisone daily until she sees doctor again. * Telephone Encounter - Manasa Cabrera - 01/07/2011 10:42 AM CDT Patient called in. She is wanting to let doctor know on the Prednisone 5 mg from 20 mg. She is in alot of pain and can hardly walk and hurting all over. documented in this encounter Plan of Treatment Not on file documented as of this encounter Visit Diagnoses Not on filedocumented in this encounter Care Teams Pole Peeling Machine Operator Relationship Specialty Start Date End Date Tim Altman MD PCP - General 10/18/10 documented as of this encounter
--- OUTSIDE RECORDS SUMMARY | 2024-06-17 14:46 | XMS_ITS | Encounter Summary ---
Author Organization [facility] Address [address] [place] [address] [place] [address] Care Team Providers Care Inside Sales Name Role Phone Tim Altman MD Primary Care Provider [phone] Vani Waldrop MD Unavailable [phone] Casper Smith MD Unavailable Unavailable Reason for Visit * Reason Onset Date Comments Medication Problem 08/27/2011 Encounter Details Date Type Department Care Team (Late st Contact Info) Description 08/27/2011 Telephone [facility] - Rheumatology [address] [place] [id number] [phone] Casper Smith MD Medication Problem Social History [...] Telephone Encounter - Lisa Reece MA - 08/27/2011 1:55 PM CDT Rx sent to pharmacy. * Telephone Encounter - Eneida Nixon MA - 08/27/2011 1:27 PM CDT Patient informed of the message below. She is need Prednisone 1 mg called into the pharmacy. * Telephone Encounter - Eneida Nixon MA - 08/27/2011 1:24 PM CDT Called and informed patient of the message below. She is needing Prednisone 1 mg called into the pharmacy. [facility] * Telephone Encounter - Lisa Reece MA - 08/27/2011 12:52 PM CDT Inform patient she can take 7.5 mg of prednisone. Let us know how that works. * Telephone Encounter - Hannah Edmondson - 08/27/2011 10:[address] cut her prednisone from 10 mg to 5 mg last wk and she is having joint pain and feels like pins sticking her what should she do documented in this encounter Plan of Treatment Not on file documented as of this encounter Visit Diagnoses Not on filedocumented in this encounter Care Teams Inside Sales Relationship Specialty Start Date End Date Tim Altman MD PCP - General 10/18/10 [place] [id number] [place] [id number] Orthopedic Surgery 05/02/11 [place] [id number] [place] [phone] Rheumatology 08/20/11 documented as of this encounter
--- OUTSIDE RECORDS SUMMARY | 2024-06-17 14:46 | XMS_ITS | Encounter Summary ---
Author Organization [facility] Address [address] [place], [place] [address] [address] Care Team Providers Care Parachute Supervisor Name Role Phone Tim Altman MD Primary Care Provider [phone] Reason for Visit * Reason Comments Lower Extremity Problem Encounter Details Date Type Department Care Team (Latest Contact Info) Description 01/23/2011 10:40 AM CDT Procedure visit [facility] - Family Medicine [address] [place] [id number] DJD (degenerative joint disease) of knee Social [...] as of this encounter Procedure Notes * Karly Snyder ANP - 01/23/2011 12:30 PM CDTAssociated Order(s): XR CERVICAL SPINE 2 OR 3 VW Mild DJD in C3-C4 and C4-C5 * Karly Snyder ANP - 01/23/2011 12:26 PM CDTAssociated Order(s): XR KNEE 1 OR 2 VW LEFT She has degenerative changes to the left medial knee. No fracture or dislocation. documented in this encounter Plan of Treatment Not on file documented as of this encounter Procedures Procedure Name Priority Date/Time Associated Diagnosis Comments XR CERVICAL SPINE 2 OR 3VW Routine 01/23/2011 12:31 PM CDT Numbness and tingling XR KNEE LEFT 2VW OR LESS Routine 01/23/2011 12:27 PM CDT Knee pain documented in this encounter Visit Diagnoses Diagnosis DJD (degenerative joint disease) of knee- Primary Osteoarthrosis, unspecified whether generalized or localized, lower leg documented in this encounter Care Teams Parachute Supervisor Relationship Specialty Start Date End Date Tim Altman MD PCP - General 10/18/10 documented as of this encounter
--- OUTSIDE RECORDS SUMMARY | 2024-06-17 14:46 | XMS_ITS | Clinical Summary ---
Author Organization [facility] Address [address] [place] [address] Phone Care Team Providers Care Tower Erector Name Role Phone Tim Altman MD Primary Care Provider Allergies Active Allergy Reactions Criticality Noted Date Comments Amitriptyline Rash Medium 10/17/2010 Cephalexin Unknown 12/30/2018 Codeine Other (see Comments) Medium 10/18/2010 Ezetimibe-Simvastatin Unknown 10/17/2010 Fluorescein-Proparacaine Unknown Low 12/30/2018 Hydrocodone-Acetaminophen Unknown 10/17/2010 Surgical Lubricant Rash Medium 01/10/2019 Patient call in after exam and states this made her vagina irritated Medroxyprogesterone Other (see Comments),Unknown 10/17/2010 Penicillins Rash Medium 10/17/2010 Rosuvastatin Other (see Comments) Medium 10/17/2010 Sulfa Antibiotics Rash 05/22/2020 Wound Dressing Adhesive Rash Medium 12/18/2020 Zinc Citrate-Phytase Unknown 12/30/2018 Medications celecoxib (CeleBREX) 200 MG Capsule 0 Active gabapentin (NEURONTIN) 600 MG Tablet 0 Active traMADol (ULTRAM) 50 MG Tablet 0 Active acyclovir (ZOVIRAX) 400 MG Tablet Take 1 Tab by mouth 3 times daily. 21 Tab 0 Active azaTHIOprine (IMURAN) 50 MG Tablet 2 Active ondansetron (ZOFRAN) 4 MG Tablet Take 4 mg by mouth. Active albuterol 108 (90 Base) MCG/ACT Aerosol Solution take 1-2 Puffs by inhalation every 4 hours as needed for Cough. 18 g 2 Active olopatadine (PATANOL) 0.1 % Solution Place 1 Drop in affected eye(s) 2 times daily as needed for Allergies. 5 mL 3 3 Active azelastine (OPTIVAR) 0.05 % Solution Place 1 Drop in both eyes 2 times daily. Use in affected eye(s) 6 mL 2 3 Active carbidopa-levod opa (SINEMET) 25-100 MG Tablet 3 Active predniSONE (DELTASONE) 5 MG Tablet Take 5 mg by mouth daily. 4 Active aspirin EC 81 MG Tablet Delayed Response Take 81 mg by mouth daily. Active omeprazole (PriLOSEC) 20 MG CAPSULE DELAYED RELEASE TAKE 1 CAPSULE BY MOUTH DAILY. 90 Capsule 1 4 Active metoprolol tartrate (LOPRESSOR) 25 MG Tablet TAKE 1 TABLET BY MOUTH TWO (2) TIMES DAILY. 180 Tablet 4 Active Active Problems Problem Noted Date Diagnosed Date Allergic conjunctivitis of both eyes 01/07/2023 Allergic rhinitis 12/30/2021 Essential hypertension, benign 06/18/2020 GERD without esophagitis 06/18/2020 Other specified rheumatoid arthritis, multiple s ites 06/18/2020 Reflex sympathetic dystrophy of left lower extre mity 06/18/2020 Other hyperlipidemia 06/18/2020 Restless leg syndrome 06/18/2020 Encounters Date Type Department Care Team Description 06/14/2024 Transcribe Orders [facility] [address] [place] [address] Raul Young MD Aftercare following joint replacement surgery, unspecified joint (Primary Dx); Presence of left artificial knee joint 06/06/2024 Results [facility] [address] [place] [address] Tim Altman MD 06/02/2024 9:30 AM SATIN FINISHER [facility] [address] [place] [phone] Tim Altman MD Pre-op evaluation (Primary Dx); Primary osteoarthritis of left knee; Essential hypertension, benign; Other specified rheumatoid arthritis, multiple sites (HCC) Discharge Disposition: Discharged to home or Selfcare 06/02/2024 Documentation Only [facility] [address] [place] [phone] Tim Altman MD 06/02/2024 Travel 05/10/2024 8:10 AM SATIN FINISHER Lab [facility] [address] [place] [address] [facility] Pre-op evaluation; Hyperglycemia; Arthralgia, unspecified joint Discharge Disposition: Discharged to home or Selfcare 05/10/2024 Travel 04/21/2024 Telephone [facility] [address] [place] [phone] Tim Altman MD 04/21/2024 Telephone [facility] [address] [place] [address] Tim Altman MD 04/07/2024 Telephone [facility] [address] [place] [address] Sangita Best, PAC Results 04/01/2024 Refill [facility] [address] [place] [address] Sangita Bets, PAC Medication Refill from Last 3 Months Immunizations Immunization Administration Dates Next Due Pneumococcal conjugate PCV20 , polysaccharide MPY304 conjugate, adjuvant, PF 01/07/2023 Family History Medical History Relation Name Comments Breast Cancer Maternal Aunt 1 Breast Cancer Maternal Aunt 2 Relation Name Status Comments Father Maternal Aunt 1 Maternal Aunt 2 Mother Social History Tobacco Use Types Packs/Day Years Used Date Smoking Tobacco: Former Cigarettes Q uit: 07/23/1969 Passive Smoke Exposure: Past Smokeless Tobacco: Never Tobacco Cessation:Counseling Given: No Alcohol Use Standard Drinks/Week Comments Not Currently 0 (1 standard drink = 0.6 oz pur e alcohol) [facility] Utilities Answer Date Recorded In the past 12 months has th e electric, gas, oil, or water company threatened to shut off services in your home? No 09/03/2023 Social Connection and Isolat ion Panel [NHANES] Answer Date Recorded In a typical week, how many times do you talk on the phone with family, friends, or neighbors? More than three times a week 09/03/2023 How often do you get togethe r with friends or relatives? More than three times a week 09/03/2023 How often do you attend chur ch or adventism services? Never 09/03/2023 Do you belong to any clubs o r organizations such as advent groups, unions, fraternal or athletic groups, or school groups? No 09/03/2023 How often do you attend meet ings of the clubs or organizations you belong to? Never 09/03/2023 Marital Status Not on file 09/03/2023 AUDIT-C Answer Date Recorded Q1: How often do you have a drink containing alcohol? Never 09/03/2023 Q2: How many drinks containi ng alcohol do you have on a typical day when you are drinking? Patient does not drink Q3: How often do you have si x or more drinks on one occasion? Never 09/03/2023 Overall Financial Resource Strain (CARDIA) Answe r Date Recorded How hard is it for you to pa y for the very basics like food, housing, medical care, and heating? Not hard at all 09/03/2023 PHQ-2 Answer Date Recorded Total Score - Questions 1-9 0 08/14 [facility] of Occupat ional Health - Occupational Stress Questionnaire Answer Date Recorded Do you feel stress - tense, restless, nervous, or anxious, or unable to sleep at night because your mind is troubled all the time - these days? Not at all 09/03/2023 Exercise Vital Sign Answer Date Recorde d On average, how many days pe r week do you engage in moderate to strenuous exercise (like a brisk walk)? 0 days 09/03/2023 On average, how many minutes do you engage in exercise at this level? 0 min 09/03/2023 Hunger Vital Sign Answer Date Recorded Within the past 12 months, y ou worried that your food would run out before you got the money to buy more. Never true 09/03/19 24 Within the past 12 months, t he food you bought just didn't last and you didn't have money to get more. Never true 09/03/2023 PRAPARE - Transportation Answer Date Re corded In the past 12 months, has l ack of transportation kept you from medical appointments or from getting medications? No 08/14 In the past 12 months, has l ack of transportation kept you from meetings, work, or from getting things needed for daily living? No 09/03/2023 Housing Stability Vital Sign Answer Jan e Recorded In the last 12 months, was t here a time when you were not able to pay the mortgage or rent on time? No 09/03/2023 In the last 12 months, how many places have you lived? 2 09/03/2023 In the last 12 months, was t here a time when you did not have a steady place to sleep or slept in a residential (including now)? No 09/03/2023 Sexually Active Control Partners Comments Not Currently Comments No Sex and Gender Information Value Date Recorded Sex Assigned at Not on file Legal Sex Female 7:42 PM CDT Gender Identity Not on file Sexual Orientation Not on file Last Filed Vital Signs Vital Sign Reading Time Taken Comments Blood Pressure 118/76 06/02/2024 9:20 AM SATIN FINISHER Pulse 86 06/02/2024 9:20 AM SATIN FINISHER Temperature 36.3 ??C (97.3 ??F) 06/02/2024 9:20 AM CS T Respiratory Rate 12 03/09/2024 9:32 AM CDT Oxygen Saturation 99% 06/02/2024 9:20 AM SATIN FINISHER Inhaled Oxygen Concentration - - Weight 88 kg (194 lb) 06/02/2024 9:20 AM SATIN FINISHER Height 162.6 cm (5' 4 ) 06/02/2024 9:20 AM SATIN FINISHER Body Mass Index 33.3 06/02/2024 9:20 AM SATIN FINISHER Plan of Treatment Upcoming Encounters Date Type Department Care Team (Late st Contact Info) Description 06/30/2024 10:00 AM SATIN FINISHER Physical Therapy [facility] [address] [place] [phone] Raul Young MD [address] [place] [address] Brandi Coffey, [place] Discharge Disposition: Discharged to home or Selfcare 08/31/2024 9:30 AM CDT Office [facility] [address] [place] [address] Tim Altman MD [address] [facility] [place] [address] Health Maintenance Due Date Last Done Comments TdaP Immunization 1955 SARS-COV-2 Immunization (#1) 08/15/1959 Colonoscopy 08/15/1999 Respiratory Syncytial Virus (RSV) Immunization (Adult) (1 - Risk 60-74 years 1-dose series) 2014 Immunochemical Fecal Occult Blood 04/15/2022 04/15/2021, 12/30/2018, 12/17/2017 DEXA Bone Density 12/18/2022 12/18/2020, , 01/06/2018, Additional history exists Cologuard 05/20/2024 Colorectal Cancer Screening 05/20/2024 Mammogram 08/28/2024 08/28/2022, 0 10/2020, 12/30/2018, Additional history exists Hepatitis C Virus (HCV) Screening Completed 05/15/2011 Pneumococcal Immunization (50+ years) Completed 01/07/2023 Pneumococcal Immunization Combined Discontinued 01/07/2023 Hepatitis B Immunization Aged Out No longer eligible based on patient's age to complete this topic Influenza Immunization Discontinued Meningococcal Immunization (ACWY) Aged Out No longer eligible based on patient's age to complete this topic Rotavirus Immunization Aged Out No lo nger eligible based on patient's age to complete this topic Zoster Immunization Discontinued Procedures Procedure Name Priority Date/Time Associated Diagnosis Comments OUTPATIENT ABO & RH W/ ANTIBODY SCREEN 06/10/2024 12:00 AM SATIN FINISHER LAB - MISCELLANEOUS 06/10/2024 1 2:00 AM SATIN FINISHER LAB - MISCELLANEOUS 06/10/2024 1 2:00 AM SATIN FINISHER EKG SCAN 06/02/2024 12:00 AM SATIN FINISHER CBC WITH AUTO DIFFERENTIAL Routine 05/10/2024 8:19 AM SATIN FINISHER Pre-op evaluation HEMOGLOBIN A1C W/ ESTIMATED GLUCOSE Routine 05/10/2024 8:19 AM SATIN FINISHER Hyperglycemia CMP (COMPREHENSIVE METABOLIC PANEL) Routine 05/10/2024 8:19 AM SATIN FINISHER Pre-op evaluation COMPLETE BLOOD COUNT (CBC) WITH DIFF Routine 05/10/2024 8:19 AM SATIN FINISHER Pre-op evaluation HEMOGLOBIN, A1C 05/10/2024 12:00 AM SATIN FINISHER COMPLETE BLOOD COUNT (CBC) WITH DIFF 05/10/2024 12:00 AM SATIN FINISHER CMP (COMPREHENSIVE METABOLIC PANEL) 05/10/2024 12:00 AM SATIN FINISHER RHEUMATOLOGY CONSULT 04/19/2024 12:[address] - LOWER EXTREMITY 04/12/2024 12:00 AM CDT XR - ABDOMEN/PELVIS 04/04/2024 1 2:00 AM CDT XR - LOWER EXTREMITY 04/04/2024 12:00 AM CDT YULIET SCREENING BILATERAL DIGITAL W CAD W RAFAEL Routine 08/28/2022 8:59 AM CDT Breast cancer screening by mammogram YULIET BONE DENSITOMETRY AXIAL SKELETON Routine 12/18/2020 10:10 AM CDT Screening for osteoporosis Menopause from Last 3 Months or Most Recently Relevant to Health Maintenance Results * LAB - MISCELLANEOUS (06/10/2024 12:00 AM SATIN FINISHER) Only the most recent of2 resultswithin the time period is included. 06/10/2024 us Provider Scan CHEMISTRY ORDERABLES Final Resul t SCAN * OUTPATIENT ABO & RH W/ ANTIBODY SCREEN (06/10/2024 12:00 AM SATIN FINISHER) 06/10/2024 us Provider Scan BLOOD BANK ORDERABLES Final Resu lt Performing Organization Address City/[facility] Co de Phone Number SCAN * EKG SCAN (06/02/2024 12:00 AM SATIN FINISHER) 06/02/2024 us Provider Scan IMG ECG ORDERABLES Final Result Performing Organization Address [facility] Co de Phone Number RESULTING AGENCY * HEMOGLOBIN A1C W/ ESTIMATED GLUCOSE (05/10/2024 8:19 AM SATIN FINISHER) HGB-A1C 5.6 4.0 - 6.0 % 05/10/2024 3:37 PM SATIN FINISHER [facility] Est Average Glucose 114.0 mg/dL 05/10/2024 3:37 PM SATIN FINISHER [facility] Blood Venipuncture / Unknown 05/10/2024 8:19 AM SATIN FINISHER 05/10/2024 8:19 AM SATIN FINISHER N[facility]ative [facility] - 05/10/2024 3:37 PM SATIN FINISHER HEMOGLOBIN A1C: DIABETIC PATIENTS: WELL-CONTROLLED: ?? 6.2 - 7.0 INTERMEDIATE WELL-CONTROLLED: ??7.0 - 9.0 POORLY-CONTROLLED: ??>9.0 us Tim Altman MD CHEMISTRY ORDERABLES Final Result Performing Organization Address [facility] Co de Phone Number [facility] [address] [place] [address] * (ABNORMAL) CBC WITH AUTO DIFFERENTIAL (05/10/2024 8:19 AM SATIN FINISHER) Pathologist [facility] WBC 4.61 4.00 - 12.00 10(3)/mcL 05/10/2024 5:53 PM SATIN FINISHER [facility] RBC 4.16 3.80 - 5.30 10(6)/mcL 05/10/2024 5:53 PM [facility] HEMOGLOBIN (HGB) 14.1 12.0 - 15.8 g/dL 05/10/2024 5:53 PM [facility] HEMATOCRIT (HCT) 42.1 36.0 - 47.0 % 05/10/2024 5:53 PM [facility] MCV 101.2(H) 82.0 - 96.0 fL 05/10/2024 5:53 PM [facility] MCH 33.9 26.0 - 34.0 pg 05/10/2024 5:53 PM [facility] MCHC 33.5 31.0 - 36.0 g/dL 05/10/2024 5:53 PM [facility] PLATELET COUNT 175 140 - 440 10(3)/mcL 05/10/2024 5:53 PM [facility] RDW 14.2 11.8 - 15.5 % 05/10/2024 5:53 PM [facility] MPV 10.9 9.7 - 12.4 fL 05/10/2024 5:53 PM [facility] NEUTROPHILS 49.6 47.0 - 73.0 % 05/10/2024 5:53 PM [facility] LYMPHOCYTES 42.7(H) 18.0 - 42.0 % 05/10/2024 5:53 PM [facility] MONOCYTES 6.3 4.0 - 12.0 % 05/10/2024 5:53 PM [facility] EOSINOPHILS 0.7 0.0 - 5.0 % 05/10/2024 5:53 PM [facility] BASOPHILS 0.7 0.0 - 1.0 % 05/10/2024 5:53 PM [facility] ABSOLUTE NEUTROPHILS 2.29 1.60 - 7.70 10(3)/mcL 05/10/2024 5:53 PM SATIN FINISHER [facility] ABSOLUTE LYMPHOCYTES 1.97 1.30 - 3.20 10(3)/Health system 05/10/2024 5:53 PM SATIN FINISHER [facility] ABSOLUTE MONOCYTES 0.29 0.20 - 1.00 10(3)/Health system 05/10/2024 5:53 PM SATIN FINISHER [facility] ABSOLUTE EOSINOPHIL 0.03 0.00 - 0.40 10(3)/Health system 05/10/2024 5:53 PM SATIN FINISHER [facility] ABSOLUTE BASOPHILS 0.03 0.00 - 0.10 10(3)/Health system 05/10/2024 5:53 PM SATIN FINISHER [facility] NRBC PER 100 WBC 0 05/10/20 5:53 PM SATIN FINISHER [facility] Blood Venipuncture / Unknown 05/10/2024 8:19 AM SATIN FINISHER 05/10/2024 8:19 AM SATIN FINISHER us Tim Altman MD HEMATOLOGY ORDERABLES Final Result [facility] [address] [place] [address] * (ABNORMAL) CMP (COMPREHENSIVE METABOLIC PANEL) (05/10/2024 8:19 AM SATIN FINISHER) Only the most recent of2 resultswithin the time period is included. SODIUM 139 136 - 145 mmol/L 05/10/2024 3:44 PM SATIN FINISHER [facility] POTASSIUM 4.5 3.5 - 5.1 mmol/L 05/10/2024 3:44 PM SATIN FINISHER [facility] CHLORIDE 104 98 - 107 mmol/L 05/10/2024 3:44 PM SATIN FINISHER [facility] CO2, VENOUS 22 22 - 30 mmol/L 05/10/2024 3:44 PM SATIN FINISHER [facility] ANION GAP 17.5 <18.0 mmol/L 05/10/2024 3:44 PM [facility] GLUCOSE 95 70 - 99 mg/dL 05/10/2024 3:44 PM [facility] BUN 17 10 - 20 mg/dL 05/10/2024 3:44 PM [facility] CREATININE, BLOOD 0.83 0.60 - 1.00 mg/dL 05/10/2024 3:44 PM [facility] BUN/CREATININE RATIO 20 12 - 20 ratio 05/10/2024 3:44 PM [facility] TOTAL PROTEIN 7.4 6.3 - 8.2 g/dL 05/10/2024 3:44 PM [facility] ALBUMIN 4.3 3.5 - 5.0 g/dL 05/10/2024 3:44 PM [facility] A/G RATIO 1.4 1.0 - 2.2 05/10/2024 3:44 PM [facility] CALCIUM 10.0 8.7 - 10.5 mg/dL 05/10/2024 3:44 PM [facility] T BILI 0.6 0.2 - 1.2 mg/dL 05/10/2024 3:44 PM [facility] SGOT (AST) 35(H) 5 - 34 U/L 05/10/2024 3:44 PM [facility] SGPT (ALT) 6 0 - 55 U/L 05/10/2024 3:44 PM [facility] ALKALINE PHOSPHATASE 53 40 - 150 U/L 05/10/2024 3:44 PM [facility] IS THE PATIENT REQUIRED TO BE FASTING? No 05/10/2024 3:44 PM [facility] HAS THE PATIENT BEEN FASTING? Yes 05/10/2024 3:44 PM [facility] GFR, ESTIMATED >60 >=60 05/10/2024 3:44 PM [facility] Comment: Creatinine Clearance is the preferred criteria for selecting drug dose adjustments in renally impaired patients. ??The GFR is provided as additional pertinent clinical information. GFR is reported in mL/min/1.73 sq m. Calculation based on the Chronic Kidney Disease Epidemiology Collaboration (CKD- EPI) equation refit without adjustment for race. GFR, EST. >60 >=60 024 3:44 PM SATIN FINISHER [facility] GFR, EST. NONAFRICAN >60 >=60 05/10/2024 3:44 PM SATIN FINISHER [facility] Blood Venipuncture / Unknown 05/10/2024 8:19 AM SATIN FINISHER 05/10/2024 8:19 AM SATIN FINISHER Tim Altman MD CHEMISTRY ORDERABLES Final Result Performing Organization Address City/[facility] Co de Phone Number [facility] [address] [place] [address] * HEMOGLOBIN, A1C (05/10/2024 12:00 AM SATIN FINISHER) HGB-A1C 5.6 SCAN 05/10/2024 Tim Altman MD CHEMISTRY ORDERABLES Final Result Performing Organization Address [facility] Co de Phone Number SCAN * COMPLETE BLOOD COUNT (CBC) WITH DIFF (05/10/2024 12:00 AM SATIN FINISHER) 05/10/2024 Tim Altman MD HEMATOLOGY ORDERABLES Final Result Performing Organization Address City/[facility]/ZIP Co de Phone Number SCAN * RHEUMATOLOGY CONSULT (04/19/2024 12:00 AM SATIN FINISHER) 04/19/2024 us Provider Scan GENERIC SCAN ORDERS CONSULT Bety l Result Performing Organization Address City/[facility] Co de Phone Number SCAN * CT - LOWER EXTREMITY (04/12/2024 12:00 AM CDT) 04/12/2024 us Provider Scan IMG CT ORDERABLES Final Result Performing Organization Address City/[facility] de Phone Number SCAN * XR - LOWER EXTREMITY (04/04/2024 12:00 AM CDT) 04/04/2024 us Provider Scan IMG DIAGNOSTIC ORDERABLES Final Result Performing Organization Address [facility] de Phone Number SCAN * XR - ABDOMEN/PELVIS (04/04/2024 12:00 AM CDT) 04/04/2024 us Provider Scan IMG DIAGNOSTIC ORDERABLES Final Result Performing Organization Address [facility] de Phone Number SCAN * YULIET SCREENING BILATERAL DIGITAL W CAD W RAFAEL (08/28/2022 8:59 AM CDT) Anatomical Region Laterality Modality breast Bilateral Mammography 08/28/2022 8:27 AM CDT Narrative 08/29/2022 8:41 AM CDT - YULIET SCREENING BILATERAL DIGITAL W CAD W RAFAEL BILATERAL DIGITAL SCREENING MAMMOGRAM 3D/2D WITH CAD WITH MEDIOLATERAL OBLIQUE CRANIOCAUDAL: 08/28/2022 The study was acquired using digital technology and interpreted from soft copy. Current study was also evaluated with ICAD version 7.2. 2D digital mammographic views, as well as 3D digital tomosynthesis were performed in the CC and MLO projections. ?? CLINICAL: Routine screening. Patient has no complaints. She reports a weight loss of 25 pounds. No personal history of cancer. Two maternal aunts had breast cancer. ?? COMPARISONS: Comparison is made to exams dated: ??12/30/2018, 01/06/2018, 12/17/2017, and 12/11/2016 [facility]. ?? BREAST TISSUE:There are scattered fibroglandular densities in both breasts. ?? FINDINGS: No significant masses, calcifications, or other findings are seen in either breast. ?? There has been no significant interval change. IMPRESSION: BI-RAD 1 NEGATIVE There is no mammographic evidence of malignancy. A 1 year screening mammogram is recommended. ?? A letter will be sent to the patient with these results. The patient will be entered into a reminder system with a target due date of 1 year for her next screening exam. Electronically signed by: Meme Espitia M.D. ? ab/penrad:08/28/2022 16:50:56 ?? Canal Boat Captain(s): Cristina ??RT Manuela(R)(M), [facility] letter sent: Normal Exam ?? Reading location: [facility] BI-RADS: 1 Negative Procedure Note Meme Espitia MD - 08/29/2022 - YULIET SCREENING BILATERAL DIGITAL W CAD W RAFAEL BILATERAL DIGITAL SCREENING MAMMOGRAM 3D/2D WITH CAD WITH MEDIOLATERAL OBLIQUE CRANIOCAUDAL: 08/28/2022 The study was acquired using digital technology and interpreted from soft copy. Current study was also evaluated with ICAD version 7.2. 2D digital mammographic views, as well as 3D digital tomosynthesis were performed in the CC and MLO projections. CLINICAL: Routine screening. Patient has no complaints. She reports a weight loss of 25 pounds. No personal history of cancer. Two maternal aunts had breast cancer. COMPARISONS: Comparison is made to exams dated: 12/30/2018, 01/06/2018, 12/17/2017, and 12/11/2016 [facility]. BREAST TISSUE:There are scattered fibroglandular densities in both breasts. FINDINGS: No significant masses, calcifications, or other findings are seen in either breast. There has been no significant interval change. IMPRESSION: BI-RAD 1 NEGATIVE There is no mammographic evidence of malignancy. A 1 year screening mammogram is recommended. A letter will be sent to the patient with these results. The patient will be entered into a reminder system with a target due date of 1 year for her next screening exam. Electronically signed by: Meme Espitia M.D. ab/penrad:08/28/2022 16:50:56 Canal Boat Captain(s): RT Sasha(R)(M), [facility] letter sent: Normal Exam Reading location: [facility] BI-RADS: 1 Negative us Tim Altman MD IMG MAMMO ORDERABLES Final Result * [facility] BONE DENSITOMETRY AXIAL SKELETON (12/18/2020 10:10 AM CDT) Anatomical Region Laterality Modality BODY N/A Other 12/18/2020 12:1 5 PM CDT Impressions 12/18/2020 12:18 PM CDT IMPRESSION: ?? Low bone mass. Fracture risk assessment (FRAX): ? 10 year risk for a major osteoporotic fracture is 35.3 % ? 10 year risk for a hip fracture is 4.5 % The FRAX tool has not been validated in patients currently or previously treated with pharmacotherapy for osteoporosis. ??In such patients, clinical judgement must be exercised in interpreting FRAX scores as the fracture risk may be overestimated. ?? REFERENCE: ??Bone mineral density: ? Normal (T-score above or = -1.0) ? Low bone mass ??(T-score between -1.0 and -2.5) replaces the previously used term osteopenia ? Osteoporosis (T-score = or below -2.5) Medical evaluation for secondary causes of low bone mineral density may be appropriate. FRAX is a World Health Organization validated fracture risk assessment tool that calculates a person's 10 year probability of a major osteoporosis related fracture and hip fracture. ??According to the National Osteoporosis Foundation guidelines, postmenopausal women and men age 50 or older with low bone mass and a 10 year probability of a major osteoporosis related fracture = or greater than 20% or a 10 year probability of a hip fracture = or greater than 3% should be considered for treatment. For further information, including treatment recommendations, please refer to the 2013 ISCD Official Positions (http://www.iscd.org) and the NOF's Clinician's Guide to Prevention and Treatment of Osteoporosis (http://www.nof.org/professionals/clinical-guidelines) Narrative 12/18/2020 12:18 PM CDT EXAM DESCRIPTION: ?? YULIET BONE DENSITOMETRY AXIAL SKELETON REASON FOR STUDY: ?? 65 y/o ??year old ??F with given history of screening. Business Programmer/Model: ?? [employer] (S/N [id number]) CLINICAL INFORMATION: ??Current height: ??65 inches ? Maximum height: 65.5 inches ? Weight: 196 pounds Risk factors: Adult fracture, parent adult fracture, rheumatoid arthritis. COMPARISON: ?? 01/06/2018, 11/23/2014 FINDINGS: ??AP LUMBAR SPINE L1-L4: Total BMD is ??1.442 g/cm2 T-score is 2.0 Most recent prior BMD was 1.396 g/cm2 There has been a 3.3% change in BMD which is statistically significant. LEFT HIP: Current Total BMD is 0.753 g/cm2 T-score is -2.0 Most recent prior Total BMD was 0.804 g/cm2 There has been a -6.3% change in BMD which is statistically significant. Current femoral neck BMD is 0.756 g/cm2 T-score is -2.0 THIS IS AN ELECTRONICALLY VERIFIED FINAL REPORT 12/18/2020 12:15 PM - Electronically signed by Reinaldo Silvestre M.D. AG: AG D: ??12/18/2020 12:15 PM T: ??12/18/2020 12:15 PM Report ID: [id number] Reading Location: ??[id number] Procedure Note Reinaldo Silvestre MD - 12/18/2020 EXAM DESCRIPTION: [facility] BONE DENSITOMETRY AXIAL SKELETON REASON FOR STUDY: 65 y/o year old F with given history of screening. Business Programmer/Model: [employer] (S/N [id number]) CLINICAL INFORMATION: Current height: 65 inches Maximum height: 65.5 inches Weight: 196 pounds Risk factors: Adult fracture, parent adult fracture, rheumatoid arthritis. COMPARISON: 01/06/2018, 11/23/2014 FINDINGS: AP LUMBAR SPINE L1-L4: Total BMD is 1.442 g/cm2 T-score is 2.0 Most recent prior BMD was 1.396 g/cm2 There has been a 3.3% change in BMD which is statistically significant. LEFT HIP: Current Total BMD is 0.753 g/cm2 T-score is -2.0 Most recent prior Total BMD was 0.804 g/cm2 There has been a -6.3% change in BMD which is statistically significant. Current femoral neck BMD is 0.756 g/cm2 T-score is -2.0 THIS IS AN ELECTRONICALLY VERIFIED FINAL REPORT 12/18/2020 12:15 PM - Electronically signed by Reinaldo Silvestre M.D. AG: [email or web address] Report ID: [id number] Reading Location: [place] [address] IMPRESSION: Low bone mass. Fracture risk assessment (FRAX): 10 year risk for a major osteoporotic fracture is 35.3 % 10 year risk for a hip fracture is 4.5 % The FRAX tool has not been validated in patients currently or previously treated with pharmacotherapy for osteoporosis. In such patients, clinical judgement must be exercised in interpreting FRAX scores as the fracture risk may be overestimated. REFERENCE: Bone mineral density: Normal (T-score above or = -1.0) Low bone mass (T-score between -1.0 and -2.5) replaces the previously used term osteopenia Osteoporosis (T-score = or below -2.5) Medical evaluation for secondary causes of low bone mineral density may be appropriate. FRAX is a World Health Organization validated fracture risk assessment tool that calculates a person's 10 year probability of a major osteoporosis related fracture and hip fracture. According to the National Osteoporosis Foundation guidelines, postmenopausal women and men age 50 or older with low bone mass and a 10 year probability of a major osteoporosis related fracture = or greater than 20% or a 10 year probability of a hip fracture = or greater than 3% should be considered for treatment. For further information, including treatment recommendations, please refer to the 2013 ISCD Official Positions (http://www.iscd.org) and the NOF's Clinician's Guide to Prevention and Treatment of Osteoporosis (http://www.nof.org/professionals/clinical-guidelines) Marilyn Campos VP OF DIGITAL MARKETING, CLOTH SPREADER SCREEN PRINTING IMG DEXA ORDERABLES Final Result from Last 3 Months or Most Recently Relevant to Health Maintenance Insurance MEDICARE [facility] Care Teams Tower Erector Relationship Specialty Start Date End Date Tim Altman MD [address] [place] [address] PCP - General Internal Medicine 12/03/15
--- OUTSIDE RECORDS SUMMARY | 2024-06-17 14:46 | XMS_ITS | Encounter Summary ---
Author Organization [facility] Address [address] [place] [address] [place] [address] Care Team Providers Care Relations Specialist Name Role Phone Tim Altman MD Primary Care Provider [phone] Vani Waldrop MD Unavailable [phone] Casper Smith MD Unavailable Unavailable Reason for Visit * Reason Onset Date Comments MEDICATION REFILL 10/06/2011 Encounter Details Date Type Department Care Team (Late st Contact Info) Description 10/06/2011 Refill [facility] - Family Medicine [address] [place] [address] Casper Smith MD MEDICATION REFILL Social History [...] on filedocumented in this encounter Care Teams Relations Specialist Relationship Specialty Start Date End Date Tim Altman MD PCP - General 10/18/10 [place] [address] [place] [phone] Orthopedic Surgery 05/02/11 [place] [address] [place] [address] Rheumatology 08/20/11 documented as of this encounter
--- OUTSIDE RECORDS SUMMARY | 2024-06-17 14:46 | XMS_ITS | Encounter Summary ---
Author Organization [facility] Address [facility] [place] [address] Care Team Providers Care Spray Dry Operator Name Role Phone Tim Altman MD Primary Care Provider Reason for Visit * Reason Onset Date Comments Question 05/01/2011 Encounter Details Date Type Department Care Team (Late st Contact Info) Description 05/01/2011 Telephone [facility] Orthopedics [address] [place] [id number] Vani Waldrop MD [address] [place] [address] Question Social History Tobacco Use Types Packs/Day [...] * Telephone Encounter - Marilin Schulte - 05/01/2011 12:23 PM CST Spoke with patient. She will make appointment to have her synvisc one injection lft knee. Approved by [employer], via synvisc connection. ITY REVIEW TRAINER * Telephone Encounter - Charis Justice - 05/01/2011 11:14 AM CST Pt called back with another phone number to call her at later today [phone] cell ITY REVIEW TRAINER * Telephone Encounter - Charis Justice - 05/01/2011 9:15 AM CST Pt called today to see if you have gotten approval from insurance company for her injection Please call pt ITY REVIEW TRAINER documented in this encounter Plan of Treatment Not on file documented as of this encounter Visit Diagnoses Not on filedocumented in this encounter Care Teams Spray Dry Operator Relationship Specialty Start Date End Date Tim Altman MD PCP - General 10/18/10 documented as of this encounter
--- OUTSIDE RECORDS SUMMARY | 2024-06-17 14:46 | XMS_ITS | Encounter Summary ---
Author Organization [facility] Address [address] [place] [address] Care Team Providers Care Senior Technologist Name Role Phone Tim Altman MD Primary Care Provider [phone] Vani Waldrop MD Unavailable [phone] Reason for Visit * Reason Comments Pain Knee knee pain Encounter Details Date Type Department Care Team (Late st Contact Info) Description 05/05/2011 10:00 AM SYSTEM OPERATOR Office Visit [facility] Orthopedics [address] [place] [phone] Vani Waldrop MD [address] [place] [phone] Primary localized osteoarthrosis, lower leg (Primary Dx) Social History Tobacco Use Types Packs/Day Years Used Date Smoking Tobacco: Never Alcohol Use Standard Drinks/Week Comments No 0 (1 standard drink = 0.6 oz pur e alcohol) Sex and Gender Information Value Date Recorded Sex Assigned at Not on file Gender Identity Not on file Sexual Orientation Not on file documented as of this encounter Progress Notes * Nuha Ahn - 05/13/2011 8:40 AM CSTAddended by: NUHA AHN on: 05/13/2011 08:40 AM Modules accepted: Level of Service EM OPERATOR * [place] Thomas RN - 05/05/2011 9:45 AM CST synvisc injection EM OPERATOR documented in this encounter H&P Notes * Vani Waldrop MD - 05/05/2011 7:18 PM CST HISTORY: Here for followup of her left knee. I saw her a couple weeks ago. We tried a cortisone shot. It helped for about 3 days and symptoms came back. She feels pain on the medial side. It did help with the swelling, but swelling came back again. EXAMINATION: On exam, she has effusion to her knee, tenderness, mostly on the medial side. Her range of motion is okay. She has no gross instability. She is neurologically intact, whatever is normal for her. IMPRESSION: Left knee DJD. PLAN: We have gotten authorization to try the Synvisc and she is agreeable to that. Under sterile conditions, 6 cc of Synvisc One are injected into the lateral tibiofemoral junction. She has got a lot of pressure from that, so is uncomfortable. If she is still not getting any response in a couple weeks, she will let me know, and then of course we will have to decide where to go from there. Umm Waldrop M.D. Electronically Signed 05/06/2011 09:51:23 SYSTEM OPERATOR CK/MedQ #: [id number] documented in this encounter Plan of Treatment Not on file documented as of this encounter Visit Diagnoses Diagnosis Primary localized osteoarthrosis, lower leg- Primary documented in this encounter Care Teams Senior Technologist Relationship Specialty Start Date End Date Tim Altman MD PCP - General 10/18/10 [place] [address] [place] [phone] Orthopedic Surgery 05/02/11 documented as of this encounter
--- OUTSIDE RECORDS SUMMARY | 2024-06-17 14:46 | XMS_ITS | Encounter Summary ---
Author Organization [facility] Address [address] [place] [address] [place] [address] Care Team Providers Care Firestop/Containment Worker Name Role Phone Tim Altman MD Primary Care Provider [phone] Reason for Visit * Reason Onset Date Comments Fibromyalgia 04/24/2011 Encounter Details Date Type Department Care Team (Late st Contact Info) Description 04/24/2011 Telephone [facility] Medical [facility] - Rheumatology [address] [place] [id number] Casper Smith MD Fibromyalgia Social History Tobacco Use Types Packs/Day [...] Diagnosis Fibromyalgia- Primary Mylagia and myositis, unspecified Thrush Candidiasis of mouth Insomnia Insomnia, unspecified documented in this encounter Care Teams Firestop/Containment Worker Relationship Specialty Start Date End Date Tim Altman MD PCP - General 10/18/10 documented as of this encounter
--- OUTSIDE RECORDS SUMMARY | 2024-06-17 14:46 | XMS_ITS | Encounter Summary ---
Author Organization [facility] Address [address] [place], [place] [address] [address] Care Team Providers Care Tip Stretcher Name Role Phone Tim Altman MD Primary Care Provider [phone] Vani Waldrop MD Unavailable [phone] Casper Smith MD Unavailable Unavailable Reason for Visit * Reason Comments Polymyalgia Rheumatica follow up Encounter Details Date Type Department Care Team (Latest Contact Info) Description 08/21/2011 9:30 AM CHANGE MANAGEMENT FACILITATOR Office Visit [facility] - Rheumatology [address] [place] [phone] Casper Smith MD Fibromyalgia (Primary Dx); PMR (polymyalgia rheumatica) (HCC); DJD (degenerative joint disease) of knee; Restless [...] Reading Time Taken Comments Blood Pressure 122/76 08/21/2011 9:23 AM CHANGE MANAGEMENT FACILITATOR Pulse 86 08/21/2011 9:23 AM CHANGE MANAGEMENT FACILITATOR Temperature - - Respiratory Rate - - Oxygen Saturation - - Inhaled Oxygen Concentration - - Weight 113.4 kg (250 lb) 08/21/2011 9:23 AM CHANGE MANAGEMENT FACILITATOR Height 163.8 cm (5' 4.5 ) 08/21/2011 9:23 AM CHANGE MANAGEMENT FACILITATOR Body Mass Index 42.25 08/21/2011 9:23 AM CHANGE MANAGEMENT FACILITATOR documented in this encounter Patient Instructions * Patient Instructions* Casper Smith MD - 08/21/2011 9:41 AM CHANGE MANAGEMENT FACILITATOR Prednisone 5mg daily for 14 days then stop GE MANAGEMENT FACILITATOR documented in this encounter Progress Notes * Lisa Reece MA - 08/26/2011 10:13 AM CDTQuick Note: Letter mailed to patient regarding lab results. * Casper Smith MD - 08/21/2011 9:30 AM CST Subjective: Lexi Mcneil is a 56 y.o. female referred By Tim Altman for evaluation and treatment of chronic pain Who was seen today for Chief Complaint Patient presents with ??? Polymyalgia Rheumatica follow up She has wide spread pain complaints She massages her sore muscles with some good effect She has been having issues with folliculitis and has taken antibiotics on occasion She has a positive ESTHELA with a speckled pattern Hepatitis testing negative ESR and CRP routinely normal since starting prednisoneand not changed with MTX weekly She had a diagnostic US of the hand and it showed persistent enlargement of the right median nerve She had a disappointing response to CTS and Ulnar translocation. Shehas some knee DJD and will use intermittent injections. She is in the middle of disability negotiation. She is disappointed with the payment amount. Will try to wean off prednisone. Patient Active Problem List Diagnoses Date Noted [...] mouth at bedtime. 30 Tab 6 ??? methotrexate (RHEUMATREX) 2.5 MG tablet Take 8 Tabs by mouth every 7 days before meal. 32 Tab 6 ??? folic acid (FOLVITE) 1 MG tablet Take 1 Tab by mouth once daily. 30 Tab 12 ??? traMADol (ULTRAM) 50 MG tablet Take 2 Tabs by mouth 3 times daily. 180 Tab 6 ??? gabapentin (NEURONTIN) 600 MG tablet Take 1 Tab by mouth 3 times daily. 1 tab am and 2 tabs pm 90 Tab 12 ??? predniSONE (DELTASONE) 10 MG tablet Take 1 Tab by mouth 2 times daily. BID for 5 days then return to once daily 30 Tab 4 ??? nystatin (MYCOSTATIN) 761140 UNIT/ML suspension Take 5 mL by mouth 4 times daily. For thrush 280 mL 6 ??? sertraline (ZOLOFT) 100 MG tablet [...] Coronary Artery Disease Mother Allergies as of 08/21/2011 - reviewed 08/21/2011 Allergen Reaction Noted ??? Amitriptyline 10/17/2010 ??? [...] addiction, suicide, insomnia, daytime sleepiness, Objective: BP: 122/76 Pulse: 86 Wt: 250 lb (113.399 kg) BMI: 42.25 kg/m2 FiO2: Body mass index is 42.25 kg/(m^2). (negative exam findings are in normal text, positive findings are highlighted below) SJ=0 TJ=0 Nodules=0 GEN: anxious , confused , thin , obese, Cushingoid, ASSISTIVE DEVICE: bedside commode, cane, crutches, prosthesis, splint/brace, walker and wheelchair HEENT: COCOPAH , cerumen , anisocoria, retinal, hemorrhage, thrush, [...] abn 1st [facility], Flexor tend, Finger Deformity: Mutual neck/ Boutonniere/ Mallet finger, Ulnar deviation, Dupuytren's, [...] Fibromyalgia Yes ??? PMR (polymyalgia rheumatica) ??? DJD (degenerative joint disease) of knee ??? Restless legs syndrome (RLS) ??? Insomnia ??? High risk medications (not anticoagulants) long-term use Immunization History Administered Date(s) Administered ??? Methylprednisolone 40mg 01/23/2011 Plan: Orders Placed This Encounter ??? CBC W AUTO DIFFERENTIAL ??? COMPREHENSIVE METABOLIC PANEL ??? C-REACTIVE PROTEIN ??? sertraline (ZOLOFT) 100 MG tablet Sig: Take 1 Tab by mouth once daily. Dispense: 30 Tab Refill: 12 Plan Zoloft 100 mg daily Tylenol 1 gm tid Tramadol 100 mg tid Prednisone 10-5 stop Methotrexate 20 mg weekly Folic acid 1 mg daily CBC CMP CRP Sinemet CR qHS Gabapentin 600 AM 1200 mg PM F/U: Return in about 4 months (around 12/21/2011). Copy Dr Cathie Wilkerson NeuroOpth, Dr Reaves Neurology GE MANAGEMENT FACILITATOR documented in this encounter Plan of Treatment Not on file documented as of this encounter Procedures Procedure Name Priority Date/Time Associated Diagnosis Comments C-REACTIVE PROTEIN Routine 08/21/2011 PMR (polymyalgia rheumatica) (HCC) CBC W AUTO DIFFERENTIAL Routine 08/21/2011 High risk medications (not anticoagulants) long-term use COMPREHENSIVE METABOLIC PANEL Routine 08/21/2011 High risk medications (not anticoagulants) long-term use documented in this encounter Results * C-REACTIVE PROTEIN (08/21/2011) C-Reactive Protein 0.23 <0.80 mg/dL [facility] Comment: Please be advised that patients taking Carboxypenicillins may exhibit falsely decreased C-Reactive Protein levels due to an analytical interference in this assay. Test Performed at: [facility] [id number] [place], [place] ??[phone] MUKUND GILES DO,MPH Blood specimen (specimen) BLOOD SPECIMEN / Unknown 08/21/2011 08/22/2011 2:04 AM CHANGE MANAGEMENT FACILITATOR Casper Smith MD LAB - CHEMISTRY CHELI SAAB [facility] Organization Address City/State/ZIP Co de Phone Number [facility] [phone] [place] [address] * (ABNORMAL) COMPREHENSIVE METABOLIC PANEL (08/21/2011) Pathologist [facility] Glucose 90 65 - 99 mg/dL [facility] Comment: ? Fasting reference interval BUN 17 7 - 25 mg/dL [facility] Creatinine 0.72 0.50 - 1.05 mg/dL [facility] Comment: For patients >49 years of age, the reference limit for Creatinine is approximately 13% higher for people identified as -[place]. eGFR by MDRD 93 > OR = 60 mL/min/1 .73m2 [facility] eGFR by MDRD 108 > OR = 60 mL/min/1 .73m2 [facility] BUN/Creatinine Ratio NOT APPLICABLE 6 - 22 (calc) [facility] Sodium 140 135 - 146 mmol/L [facility] Potassium 4.4 3.5 - 5.3 mmol/L [facility] Chloride 103 98 - 110 mmol/L [facility] CO2 25 21 - 33 mmol/L [facility] Calcium 9.6 8.6 - 10.4 mg/dL [facility] Protein Total 6.9 6.2 - 8.3 g/dL [facility] Albumin 4.4 3.6 - 5.1 g/dL [facility] Globulin Total 2.5 2.2 - 3.9 g/dL (calc) [facility] Albumin/Globulin Ratio 1.8 1.0 - 2.1 (calc) [facility] Bilirubin Total 0.6 0.2 - 1.2 mg/dL [facility] Alkaline Phosphatase 49 33 - 130 U/L [facility] AST 54(H) 10 - 35 U/L [facility] ALT 21 6 - 40 U/L [facility] Comment: Test Performed at: [facility] [id number] [place], [place] ??[phone] MUKUND GILES DO,MPH Blood specimen (specimen) BLOOD SPECIMEN / Unknown 08/21/2011 08/22/2011 2:04 AM CHANGE MANAGEMENT FACILITATOR Casper Smith MD LAB - CHEMISTRY CHELI [facility] Performing Organization Address City/State/[facility] Co de Phone Number [facility] [address] [place] [address] * (ABNORMAL) CBC W AUTO DIFFERENTIAL (08/21/2011) White Blood Cell Count 6.4 3.8 - 10.8 Thousand/u L [facility] RBC 3.87 3.80 - 5.10 Million/uL [facility] Hemoglobin 13.1 11.7 - 15.5 g/dL [facility] Hematocrit 38.4 35.0 - 45.0 % [facility] MCV 99.3 80.0 - 100.0 fL [facility] MCH 33.9(H) 27.0 - 33.0 pg [facility] MCHC 34.2 32.0 - 36.0 g/dL [facility] RDW 15.8(H) 11.0 - 15.0 % [facility] Platelet Count 231 140 - 400 Thousand/u L [facility] Neutrophil Absolute 4250 1500 - 7800 cells/uL [facility] Lymphocytes Absolute 1536 850 - 3900 cells/uL [facility] Absolute Monocytes 512 200 - 950 cells/uL [facility] Eosinophils Absolute 19 15 - 500 cells/uL [facility] Basophils Absolute 83 0 - 200 cells/uL [facility] Granulocytes % 66.4 % [facility] Lymphocytes % 24.0 % [facility] Monocytes % 8.0 % [facility] Eosinophils % 0.3 % [facility] Basophils % 1.3 % [facility] Comment: Test Performed at: [facility] [address] [place], [place] ??[phone] MUKUND J GILES,DO,MPH Blood specimen (specimen) BLOOD SPECIMEN / Unknown 08/21/2011 08/22/2011 2:04 AM CHANGE MANAGEMENT FACILITATOR Casper Smith MD LAB - HEMATOLOGY ORD ERABLES [facility] Organization Address City/State/ZIP Co de Phone Number [facility] [address] [place] [address] documented in this encounter Visit Diagnoses Diagnosis Fibromyalgia- Primary Mylagia and myositis, unspecified PMR (polymyalgia rheumatica) (HCC) Polymyalgia rheumatica DJD (degenerative joint disease) of knee Osteoarthrosis, unspecified whether generalized or localized, lower leg Restless legs syndrome (RLS) Insomnia Insomnia, unspecified High risk medications (not anticoagulants) long-term use Encounter for long-term (current) use of other medications documented in this encounter Care Teams Tip Stretcher Relationship Specialty Start Date End Date Tim Altman MD PCP - General 10/18/10 [place] [address] [place] [address] Orthopedic Surgery 05/02/11 [place] [address] [place] [address] Rheumatology 08/20/11 documented as of this encounter
--- OUTSIDE RECORDS SUMMARY | 2024-06-17 14:46 | XMS_ITS | Encounter Summary ---
Author Organization [facility] Address [facility] [place] [address] Care Team Providers Care Extension Supervisor Name Role Phone Tim Altman MD Primary Care Provider [phone] Reason for Referral * Specialty Diagnoses / Procedures Referred By Dariela t Referred To Contact Karly Snyder APRN-R[place] APPRENTICE [address] [address] aVni Waldrop MD [address] [place] [phone] Referral ID Status Reason Start Date Expiration Date Visits Re quested Visits Authorized Reason for Visit * Reason Comments Follow-up left knee injection. hematoma on the left side of knee very hard. Swelling Knee left Pain from left knee shoot s up to groin area Encounter Details Date Type Department Care Team (Late st Contact Info) Description 01/30/2011 11:20 AM CDT Office Visit [facility] - Family Medicine [address] [place] [id number] Karly Snyder APRN-ROCK [employer]ON APPRENTICE [address] [address] Knee pain (Primary Dx) Social History Tobacco Use Types [...] Sign Reading Time Taken Comments Blood Pressure 140/80 01/30/2011 11:30 AM CDT Pulse 72 01/30/2011 11:30 AM CDT Temperature - - Respiratory Rate - - Oxygen Saturation - - Inhaled Oxygen Concentration - - Weight 113.9 kg (251 lb) 01/30/2011 11:30 AM CDT Height - - Body Mass Index 41.77 10/18/2010 1:23 PM CDT documented in this encounter Progress Notes * Karly Snyder, ANP - 01/30/2011 11:48 AM CDT SUBJECTIVE: Lexi Mcneil is a 55 y.o. female with Chief Complaint Patient presents with ??? Follow-up left knee injection. hematoma on the left side of knee very hard. ??? Swelling Knee left ??? Pain from left knee shoots up to groin area HPI: Pt presents for continued left knee pain. I have Cortisone injection one week ago. She had some relief for one day and then her pain returned. She describes the pain as 8-9/10. The pain is constant. Straightening all the way or bending makes the pain worse. Propping a pillow underneath it makes the pain slightly better. The pain radiates up the left medial thigh and into the groin. She has muscle spasm into the left groin area. The pain in the joint is burning and aching. She describes themuscle spasm as like someone is pulling it. Patient Active Problem List Diagnoses ??? DJD (degenerative joint disease) of knee occasional flare ??? Insomnia ??? Fibromyalgia 10/17/2010 chart abstraction ??? PMR (polymyalgia rheumatica) Hx of TA biopsy showing mild inflammation on chronic steroids History Social History ??? Marital Status: Spouse [...] Hypertension Mother ??? Coronary Artery Disease Mother Review of Systems: (negative responses are normal [...] skin MS: muscle weakness, muscle tenderness, joint pain NEURO: Headaches, dizziness, confusion, numbness, tingling PSYCH: Insomnia, anxiety, depression OBJECTIVE: BP 140/80 Pulse 72 Wt 251 lb (113.853 kg) General: alert, cooperative, no distress Head: NCAT w/o lesions or tenderness Eyes: Not examined Ears: bilateral TM's and external ear canals normal Heart: regular rate and rhythm, S1, S2 normal, no murmur, click, rub or gallop Lungs: clear to auscultation bilaterally Abdomen: soft without mass, non-tender, with normal bowel sounds Musculoskeletal no clubbing, cyanosis. She has some pain with palpation of the patella. Her pain isworse with straightening and banding. Some crepitus present. Negative Susan, drawer, and Diandra. Neuro: Cranial Nerves II-XII: intact Skin: Skin color, texture, turgor normal. No rashes or lesions of concern ASSESSMENT/PLAN: 1. Knee pain AMB REFERRAL TO ORTHOPEDIC SURGERY Orders Placed This Encounter ??? AMB REFERRAL TO ORTHOPEDIC SURGERY There are no discontinued medications. Current Outpatient Prescriptions Medication Sig Dispense Refill ??? predniSONE (DELTASONE) 10 MG tablet Take 1 Tab by mouth 2 times daily. BID for 5 days then return to once daily 30 Tab 4 ??? cyclobenzaprine (FLEXERIL) 5 MG TABS tablet Take 1 Tab by mouth nightly as needed. 14 Tab 0 ??? gabapentin (NEURONTIN) 600 MG tablet Take 1-2 Tabs by mouth at bedtime. 60 Tab 12 ??? sertraline (ZOLOFT) 100 [...] 4 Grams (4000 mg) / 24 hours. PT INSTRUCTIONS: There are no Patient Instructions on file for this visit. documented in this encounter Plan of Treatment Scheduled Referrals Name Type Priority Associated Diagnoses Order Schedule AMB REFERRAL TO ORTHOPEDIC SURGERY Outpatient Referral Routine Knee pain Ordered: 01/30/2011 documented as of this encounter Visit Diagnoses Diagnosis Knee pain- Primary Pain in joint, lower leg documented in this encounter Care Teams Extension Supervisor Relationship Specialty Start Date End Date Tim Altman MD PCP - General 10/18/10 documented as of this encounter
--- OUTSIDE RECORDS SUMMARY | 2024-06-17 14:46 | XMS_ITS | Encounter Summary ---
Author Organization [facility] Address [address] [place] [address] [place] [address] Care Team Providers Care Gas And Oil Checker Name Role Phone Tim Altman MD Primary Care Provider [phone] Vani Waldrop MD Unavailable [phone] Casper Smith MD Unavailable Unavailable Reason for Visit * Reason Onset Date Comments MEDICATION REFILL 09/08/2011 Encounter Details Date Type Department Care Team (Late st Contact Info) Description 09/08/2011 Refill [facility] - Rheumatology [address] [place] [phone] Casper Smith MD MEDICATION REFILL Social History [...] filedocumented in this encounter Care Teams Gas And Oil Checker Relationship Specialty Start Date End Date Tim Altman MD PCP - General 10/18/10 [place] [id number] [place] [phone] Orthopedic Surgery 05/02/11 [place] [address] [place] [address] Rheumatology 08/20/11 documented as of this encounter
--- OUTSIDE RECORDS SUMMARY | 2024-06-17 14:46 | XMS_ITS | Encounter Summary ---
Author Organization [facility] Address [address] [place] [address] [place] [address] Care Team Providers Care Professor Of Engineering Name Role Phone Tim Altman MD Primary Care Provider [phone] Reason for Visit * Reason Onset Date Comments Forms 01/23/2011 Encounter Details Date Type Department Care Team (Late st Contact Info) Description 01/23/2011 Telephone [facility] Medical [facility] - Rheumatology [address] [place] [address] Casper Smith MD Forms Social History Tobacco Use Types Packs/Day Years [...] * Telephone Encounter - Hannah Edmondson - 01/27/2011 4:13 PM CDT Pt needs vlad to send the lawer what she is being treated for and she is having a release form from the lawer mailed to vlad cause told her she can not stand on her feet and work if you need something else let her know * Telephone Encounter - Vlad Snyder ANP - 01/27/2011 3:35 PM CDT Please call the patient and find out if I needed to do something with this info. * Telephone Encounter - Hannah Edmondson - 01/27/2011 3:01 PM CDT This is all the pt told me i assumed that you knew what she was talking about * Telephone Encounter - Vlad Snyder ANP - 01/23/2011 2:13 PM CDT Was I supposed to do something with this info? * Telephone Encounter - Hannah Edmondson - 01/23/2011 11:48 AM CDT Pt forgot to ask vlad to give her the name of the lawer for her disability -- [employer] [address] [phone] ph # is [phone] or toll free is [phone] documented in this encounter Plan of Treatment Not on file documented as of this encounter Visit Diagnoses Not on filedocumented in this encounter Care Teams Professor Of Engineering Relationship Specialty Start Date End Date Tim Altman MD PCP - General 10/18/10 documented as of this encounter
--- OUTSIDE RECORDS SUMMARY | 2024-06-17 14:46 | XMS_ITS | Encounter Summary ---
Author Organization [facility] Address [address] [place], [place] [address] [address] Care Team Providers Care Operations Technician Name Role Phone Tim Altman MD Primary Care Provider [phone] Reason for Visit * Reason Onset Date Comments Follow-up 11/13/2010 Encounter Details Date Type Department Care Team (Late st Contact Info) Description 11/13/2010 Telephone [facility] Medical [facility] - Rheumatology [address] [place] [phone] Caspre Smith MD Follow-up Social History Tobacco Use [...] Telephone Encounter - Casper Smith MD - 11/13/2010 5:35 PM CDT Left message no nerve conduction study is suggested * Telephone Encounter - Manasa Cabrera - 11/13/2010 10:47 AM CDT Patient called in. She is wanting to know about getting a nerve test done. She is still having painand her right side bothering her. She is still having headaches, jaw and the side of her head is still bothering her as well. documented in this encounter Plan of Treatment Not on file documented as of this encounter Visit Diagnoses Diagnosis Fibromyalgia- Primary Mylagia and myositis, unspecified documented in this encounter Care Teams Operations Technician Relationship Specialty Start Date End Date Tim Altman MD PCP - General 10/18/10 documented as of this encounter
--- OUTSIDE RECORDS SUMMARY | 2024-06-17 14:46 | XMS_ITS | Encounter Summary ---
Author Organization [facility] Address [address] [place], [place] [address] [address] Care Team Providers Care Ruffler Name Role Phone Tim Altman MD Primary Care Provider [phone] Reason for Visit * Reason Comments Lower Extremity Problem l knee swollen , painful,r big toe swollen Encounter Details Date Type Department Care Team (Late st Contact Info) Description 01/23/2011 10:20 AM CDT Office Visit [facility] - Family Medicine [address] [place] [id number] Karly Snyder, WHIPPER-ASSOCIATE PROFESSOR OF HISTORY [address] [address] Numbness and tingling (Primary Dx); Knee pain; Toe pain; DJD (degenerative joint disease) of knee; Fibromyalgia Social History Tobacco Use Types Packs/Day [...] Sign Reading Time Taken Comments Blood Pressure 140/84 01/23/2011 10:13 AM CDT Pulse 84 01/23/2011 10:13 AM CDT Temperature - - Respiratory Rate - - Oxygen Saturation - - Inhaled Oxygen Concentration - - Weight 113.9 kg (251 lb) 01/23/2011 10:13 AM CDT Height - - Body Mass Index 41.77 10/18/2010 1:23 PM CDT documented in this encounter Patient Instructions * Patient Instructions* Karly Snyder ANP - 01/23/2011 10:54 AM CDT Let's go up on the Prednisone to twice daily for 5 days and then return to once daily. A medication like Amitriptiline or Nortriptiline may be beneficial to the pain you continue to haveand should be considered after you taper back off the Prednisone. You received a Cortisone injection today. Continue to rest the joint for a few more days before resuming regular activities. It may be more painful for the first 1-2 days. Apply ice to the area for 5-10 minutes three times a day for 3 days. Watch for fever, or increased swelling or persistent pain in the joint. Call or return to clinic prn if such symptoms occur or there is failure to improve as anticipated. documented in this encounter Progress Notes * Karly Snyder ANP - 01/23/2011 10:21 AM CDT SUBJECTIVE: Lexi Mcneil is a 55 y.o. female with Chief Complaint Patient presents with ??? Lower Extremity Problem l knee swollen ,painful,r big toe swollen HPI: Pt was taken off Prednisone for a short period and developed left knee swelling, right great toe swelling, and both painful. She was placed back on Prednisone 10mg daily. The knee pain is worse with straightening the knee or bending. It is described as burning and is constant. The toe pain is also burning and constant. She was previously taking 40mg of Prednisone daily. She was having side effects from the Prednisone. She is also having right arm numbness that is chronic. She wants to have a nerve conduction test tosee if it is nerve related. Patient Active Problem List Diagnoses ??? DJD [...] tingling PSYCH: Insomnia, anxiety, depression OBJECTIVE: BP 140/84 Pulse 84 Wt 251 lb (113.853 kg) General: alert, cooperative, no distress, overweight Head: NCAT w/o lesions or tenderness Eyes: Not examined Ears: bilateral TM's and external ear canals normal Heart: regular rate and rhythm, S1, S2 normal, no murmur, click, rub or gallop Lungs: clear to auscultation bilaterally Abdomen: soft without mass, non-tender, with normal bowel sounds Musculoskeletal no clubbing, cyanosis. Moderate swelling to the left knee. She has pain with ROM ofthe joint. Unable to tolerate Susan or drawer test due to pain. Right lateral great toe is painful to touch. No redness, warmth, or pain with ROM of the toe. Neuro: Cranial Nerves II-XII: intact Skin: Skin color, texture, turgor normal. No rashes or lesions of concern After discussion regarding the goals of the procedure and the minimal risk of SE, using sterile technique the left knee was prepped and after application of freezing spray when clinically indicated, the joint injected with Depomedrol 40 mg and 1 cc Lidocaine. The procedure was well tolerated. The patient is asked to continue to rest the joint for a few more days before resuming regular activities. It may be more painful for the first 1-2 days. Apply ice to the area for 5-10 minutes three times a day for 3 days. Watch for fever, or increased swelling or persistent pain in the joint. Call or return to clinic prn if such symptoms occur or there is failure to improve as anticipated. ASSESSMENT/PLAN: 1. Numbness and tingling XR CERVICAL SPINE 2 OR 3 VW, SED RATE AUTO (ESR), C- REACTIVE PROTEIN (CRP) 2. Knee pain XR KNEE 1 OR 2 VW LEFT, SED RATE AUTO (ESR), C-REACTIVE PROTEIN (CRP), NM DRAIN/INJECTLARGE JOINT/BURSA, METHYLPREDNISOLONE ACETATE 40 MG INJ 3. Toe pain SED RATE AUTO (ESR), C-REACTIVE PROTEIN (CRP) 4. DJD (degenerative joint disease) of knee SED RATE AUTO (ESR), C-REACTIVE PROTEIN (CRP) 5. Fibromyalgia SED RATE AUTO (ESR), C-REACTIVE PROTEIN (CRP) Orders Placed This Encounter ??? XR CERVICAL SPINE 2 OR 3 VW ??? XR KNEE 1 OR 2 VW LEFT ??? METHYLPREDNISOLONE ACETATE 40 MG INJ ??? SED RATE AUTO (ESR) ??? C-REACTIVE PROTEIN (CRP) ??? NM DRAIN/INJECT LARGE JOINT/BURSA ??? predniSONE (DELTASONE) 10 MG tablet Medications Discontinued During This Encounter Medication Reason ??? gabapentin (NEURONTIN) 600 MG tablet ??? predniSONE (DELTASONE) 10 MG tablet ??? predniSONE (DELTASONE) 10 MG tablet Reorder Current Outpatient Prescriptions Medication Sig Dispense Refill ??? predniSONE (DELTASONE) 10 MG tablet Take 1 Tab by mouth 2 times daily. BID for 5 days then return to once daily 30 Tab 4 ??? gabapentin (NEURONTIN) 600 MG [...] (4000 mg) / 24 hours. PT INSTRUCTIONS: Patient Instructions Let's go up on the Prednisone to twice daily for 5 days and then return to once daily. A medication like Amitriptiline or Nortriptiline may be beneficial to the pain you continue to haveand should be considered after you taper back off the Prednisone. You received a Cortisone injection today. Continue to rest the joint for a few more days before resuming regular activities. It may be more painful for the first 1-2 days. Apply ice to the area for 5-10 minutes three times a day for 3 days. Watch for fever, or increased swelling or persistent pain in the joint. Call or return to clinic prn if such symptoms occur or there is failure to improve as anticipated. documented in this encounter Plan of Treatment Not on file documented as of this encounter Procedures Procedure Name Priority Date/Time Associated Diagnosis Comments C-REACTIVE PROTEIN Routine 01/23/2011 10 :17 AM CDT Numbness and tingling Knee pain Toe pain DJD (degenerative joint disease) of knee Fibromyalgia ERYTHROCYTE SEDIMENTATION RATE Routine 01/23/2011 10:17 AM CDT Numbness and tingling Knee pain Toe pain DJD (degenerative joint disease) of knee Fibromyalgia documented in this encounter Results * XR CERVICAL SPINE 2 OR 3 VW (01/23/2011 12:31 PM CDT) Anatomical Region Laterality Modality Spine Other Narrative 01/23/2011 12:31 PM CDT JOSÉ LUIS Foy ? 01/23/2011 12:31 PM Mild DJD in C3-C4 and C4-C5 Procedure Note Karly Snyder ANP - 01/23/2011 12:30 PM CDT Mild DJD in C3-C4 and C4-C5 Karly Snyder LISA-JIN DIAGNOSTIC IMAGIN G ORDERABLES * XR KNEE 1 OR 2 VW LEFT (01/23/2011 12:27 PM CDT) Anatomical Region Laterality Modality Lower Extremity Other Narrative 01/23/2011 12:27 PM CDT Karly SnyderJOSÉ LUIS ? 01/23/2011 12:27 PM She has degenerative changes to the left medial knee. ??No fracture or dislocation. Procedure Note Karly SnyderJOSÉ LUIS - 01/23/2011 12:26 PM CDT She has degenerative changes to the left medial knee. No fracture ordislocation. Karly Snyder LISA-ASSOCIATE PROFESSOR OF HISTORY DIAGNOSTIC IMAGIN G ORDERABLES * C-REACTIVE PROTEIN (CRP) (01/23/2011 10:17 AM CDT) C-Reactive Protein 0.8 0.0 - 4.9 mg/L [facility] ACCOUNT BILL BLOOD SPECIMEN / Unknown 01/23/2011 10:17 AM CDT 01/23/2011 5:02 PM CDT Narrative Resulting Agency Comment [facility] ??[facility] [phone] Karly Snyder WHIPPER-ASSOCIATE PROFESSOR OF HISTORY LAB - CHEMISTRY O RDERABLES Performing Organization Address City/[facility]/ZIP Co de Phone Number [facility] ACCOUNT BILL * SED RATE AUTO (ESR) (01/23/2011 10:17 AM CDT) Erythrocyte Sedimentation Rate Westergren 4 0 - 56 mm/hr [facility] ACCOUNT BILL BLOOD SPECIMEN / Unknown 01/23/2011 10:17 AM CDT 01/23/2011 5:02 PM CDT Narrative Resulting Agency Comment [facility] [address] ??[facility] [phone] Karly Snyder WHIPPER-ASSOCIATE PROFESSOR OF HISTORY LAB - HEMATOLOGY ORDERABLES Performing Organization Address City/[facility]/ZIP Co de Phone Number [facility] ACCOUNT BILL documented in this encounter Visit Diagnoses Diagnosis Numbness and tingling- Primary Disturbance of skin sensation Knee pain Pain in joint, lower leg Toe pain Pain in limb DJD (degenerative joint disease) of knee Osteoarthrosis, unspecified whether generalized or localized, lower leg Fibromyalgia Mylagia and myositis, unspecified DJD (degenerative joint disease) of knee- Primary Osteoarthrosis, unspecified whether generalized or localized, lower leg documented in this encounter Care Teams Ruffler Relationship Specialty Start Date End Date Tim Altman MD PCP - General 10/18/10 documented as of this encounter
--- OUTSIDE RECORDS SUMMARY | 2024-06-17 14:47 | XMS_ITS | Encounter Summary ---
Author Organization [employer] Care Team Providers Care Compensation Director Name Role Phone Tim Altman MD Primary Care Provider [phone] Encounter Details Date Type Department Care Team (Latest Contact Info) Description 05/10/2024 Travel Social History Tobacco Use Types Packs/Day Years Used Date Smoking Tobacco: Former Cigarettes Q uit: 07/23/1969 Passive Smoke Exposure: Past Smokeless Tobacco: Never Alcohol Use Standard Drinks/Week Comments Not Currently 0 (1 standard drink = 0.6 oz pur e alcohol) [facility] Utilities Answer Date Recorded In the past 12 months has [employer] electric, gas, oil, or water company threatened [...] often do you attend chur ch or mandaeism services? Never 09/03/2023 Do you belong to any clubs o r organizations such as jewish groups, unions, fraternal or athletic groups, or [...] Total Score - Questions 1-9 0 08/14 [facility] - Occupational Stress Questionnaire Answer Date Recorded [...] place to sleep or slept in a long-term (including now)? No 09/03/2023 Sexually Active Control Partners Comments Not Currently Comments No Sex and Gender Information Value Date Recorded Sex Assigned at Not on file Legal Sex Female 7:42 PM CDT Gender Identity Not on file Sexual Orientation Not on file documented as of this encounter Plan of Treatment Upcoming Encounters Date Type Department Care Team (Late st Contact Info) Description 06/30/2024 10:00 AM LOW PRESSURE KETTLE OPERATOR Physical Therapy [facility] [address], [address] [place] [address] Raul Young MD [address] [place] [address] Brandi Coffey, PT [place] Discharge Disposition: Discharged to home or Selfcare 08/31/2024 9:30 AM CDT Office Visit [facility] - Internal Medicine [place] [address] [place] [address] Tim Altman MD [address] [place] [address] documented as of this encounter Visit Diagnoses Not on filedocumented in this encounter Additional Health Concerns Assessment Noted Time PHQ-9 Depression Total Score: 0 09/03/19 24 9:32 AM CDT documented as of this encounter Care Teams Compensation Director Relationship Specialty Start Date End Date Tim Altman MD [address] [place] [address] PCP - General Internal Medicine 12/03/15 documented as of this encounter
--- OUTSIDE RECORDS SUMMARY | 2024-06-17 14:47 | XMS_ITS | Encounter Summary ---
Author Organization [facility] Address [address] [place] [address] Phone Care Team Providers Care Self Pay Specialist Name Role Phone Tim Altman MD Primary Care Provider [phone] Sanaz Mendoza RN Unavailable Unavailable Reason for Visit * Reason Comments Medication Refill Encounter Details Date Type Department Care Team (Late st Contact Info) Description 03/09/2024 Refill [facility] - [place] [address] [place] [address] Tim Altman MD [address] [facility] [place] [address] Medication Refill Social History Tobacco Use Types Packs/Day Years Used Date Smoking Tobacco: Former Cigarettes Q uit: 07/23/1969 Passive Smoke Exposure: Past Smokeless Tobacco: Never Alcohol Use Standard Drinks/Week Comments Not Currently 0 (1 standard drink = 0.6 oz pur e alcohol) [facility] Utilities Answer Date Recorded In the past 12 months has [employer], gas, oil, or water company threatened to [...] often do you attend chur ch or jehovah's witness services? Never 09/03/2023 Do you belong to any clubs o r organizations such as yazdanism groups, unions, fraternal or athletic groups, or [...] Total Score - Questions 1-9 [address] 08/14 [facility] - Occupational Stress [...] place to sleep or slept in a retirement (including now)? No 09/03/2023 Sexually Active Control Partners Comments Not Currently Comments No Sex and Gender Information Value Date Recorded Sex Assigned at Not on file Legal Sex Female 7:42 PM CDT Gender Identity Not on file Sexual Orientation Not on file documented as of this encounter Miscellaneous Notes * Telephone Encounter - Courtney Guzman RN - 03/09/2024 10:15 AM CDT Medication(s) [facility] Medication Refill Standing Order for Pediatricand Adult Patients. Requested Prescriptions Pending Prescriptions Disp Refills omeprazole (PriLOSEC) 20 MG CAPSULE DELAYED RELEASE [Pharmacy Med Name: OMEPRAZOLE 20MG CAPSULE DR]90 Capsule 1 Sig: Take 1 Capsule by mouth daily. Proton Pump Inhibitors Protocol Passed - 03/09/2024 10:14 AM Passed - Visit with relevant provider in past 12 months or upcoming 90 days Recent Visits Date Type Provider Dept 09/03/23 Office Visit Tim Altman MD [facility] [place] Showing recent visits within past 365 days and meeting all other requirements Today's Visits Date Type Provider Dept 03/09/24 Office Visit Tim Altman MD [facility] [place] Showing today's visits and meeting all other requirements Future Appointments No visits were found meeting these conditions. Showing future appointments within next 90 days and meeting all other requirements documented in this encounter Plan of Treatment Upcoming Encounters Date Type Department Care Team (Late st Contact Info) Description 06/30/2024 10:00 AM RN ANESTHESIOLOGY Physical Therapy [facility] Rehab at [place] [address] [place] [address] Raul Young MD [address] [place] [address] Brandi Coffey, PT [place] Discharge Disposition: Discharged to home or Selfcare 08/31/2024 9:30 AM CDT [facility] [place] [address] [place] [phone] Tim Altman MD [address] [place] [address] documented as of this encounter Visit Diagnoses Not on filedocumented in this encounter Additional Health Concerns Assessment Noted Time PHQ-9 Depression Total Score: 0 09/03/19 24 9:32 AM CDT documented as of this encounter Care Teams Self Pay Specialist Relationship Specialty Start Date End Date Tim Altman MD [address] [place] [address] PCP - General Internal Medicine 12/03/15 Sanaz Mendoza, RN [place] Nurse Devops Solutions Architect 03/09/24 03/09/24 documented as of this encounter
--- OUTSIDE RECORDS SUMMARY | 2024-06-17 14:47 | XMS_ITS | Encounter Summary ---
Author Organization [facility] Address [address] [place] [address] Phone Care Team Providers Care Groundwater Programs Director Name Role Phone Tim Altman MD Primary Care Provider [phone] Reason for Visit * Reason Onset Date Comments Results 04/07/2024 Encounter Details Date Type Department Care Team (Late st Contact Info) Description 04/07/2024 Telephone [facility] - [place] [address] [facility] [place] [address] Sangita Best, [facility] [address] [place] [address] Results Social History Tobacco Use Types Packs/Day Years Used Date Smoking Tobacco: Former Cigarettes Q uit: 07/23/1969 Passive Smoke Exposure: Past Smokeless Tobacco: Never Alcohol Use Standard Drinks/Week Comments Not Currently 0 (1 standard drink = 0.6 oz pur e alcohol) [facility] Utilities Answer Date Recorded In the past 12 months has [employer], gas, oil, or water company threatened to [...] often do you attend chur ch or baptist services? Never 09/03/2023 Do you belong to any clubs o r organizations such as restorationist groups, unions, fraternal or athletic groups, or [...] Total Score - Questions 1-9 0 08/14 [facility] - Occupational [...] place to sleep or slept in a jail (including now)? No 09/03/2023 Sexually Active Control Partners Comments Not Currently Comments No Sex and Gender Information Value Date Recorded Sex Assigned at Not on file Legal Sex Female 7:42 PM CDT Gender Identity Not on file Sexual Orientation Not on file documented as of this encounter Miscellaneous Notes * Telephone Encounter - Mckenna Bauman RN - 04/08/2024 3:02 PM CDT Spoke to patient and gave her provider's note. She states she was aware and continues to follow up with Dr. Young in [place]. States she was originally told there was no fx by radiologist and has since found out about the fx. States surgery is scheduled for after the of the year, while Dr. Young figures out how he's going to fix missing bone pieces (per pt). Patient is not interested in another ortho referral, as she only wants to see Dr. Young. Patient denies further needsat this time. * Telephone Encounter - Sangita Best PAC - 04/07/2024 1:16 PM CDT Xray from [facility] Tibial plateau fracture; age undetermined Assure she is seeing ortho If not, refer documented in this encounter Plan of Treatment Upcoming Encounters Date Type Department Care Team (Late st Contact Info) Description 06/30/2024 10:00 AM DIRECTOR OF CASINO Physical Therapy [facility] Rehab at [facility] [address] [place] [address] Raul Young MD [address] [place] [address] Brandi Coffey, PT [place] Discharge Disposition: Discharged to home or Selfcare 08/31/2024 9:30 AM CDT [facility] Visit [facility] Internal Medicine [facility] [address] [place] [address] Tim Altman MD [address] [place] [address] documented as of this encounter Visit Diagnoses Not on filedocumented in this encounter Additional Health Concerns Assessment Noted Time PHQ-9 Depression Total Score: 0 09/03/19 24 9:32 AM CDT documented as of this encounter Care Teams Groundwater Programs Director Relationship Specialty Start Date End Date Tim Altman MD [address] [place] [address] PCP - General Internal Medicine 12/03/15 documented as of this encounter
--- OUTSIDE RECORDS SUMMARY | 2024-06-17 14:47 | XMS_ITS | Encounter Summary ---
Author Organization [employer] Care Team Providers Care Fiber Optic Splicer Name Role Phone Tim Altman MD Primary Care Provider [phone] Encounter Details Date Type Department Care Team (Latest Contact Info) Description 06/02/2024 Travel Social History Tobacco Use Types Packs/Day Years Used Date Smoking Tobacco: Former Cigarettes Q uit: 07/23/1969 Passive Smoke Exposure: Past Smokeless Tobacco: Never Alcohol Use Standard Drinks/Week Comments Not Currently 0 (1 standard drink = 0.6 oz pur e alcohol) [facility] Utilities Answer Date Recorded In the past 12 months has [employer], gas, oil, or water company threatened [...] often do you attend chur ch or restorationism services? Never 09/03/2023 Do you belong to any clubs o r organizations such as yazidi groups, unions, fraternal or athletic groups, or [...] Total Score - Questions 1-9 0 08/14 [facility] - Occupational Stress Questionnaire Answer Date Recorded [...] place to sleep or slept in a custodial (including now)? No 09/03/2023 Sexually Active Control [...] st Contact Info) Description 06/30/2024 10:00 AM AUTOMATIC SHIRRING MACHINE OPERATOR Physical Therapy [facility] at [facility] [address] [place] [address] Raul Young MD [address] [place] [address] Brandi Coffey, PT [place] Discharge Disposition: Discharged to home or Selfcare 08/31/2024 9:30 AM CDT [facility] Visit [facility] [place] [address] [place] [address] Tim Altman MD [address] [place] [address] documented as of this encounter Visit Diagnoses Not on filedocumented in this encounter Additional Health Concerns Assessment Noted Time PHQ-9 Depression Total Score: 0 09/03/19 24 9:32 AM CDT documented as of this encounter Care Teams Fiber Optic Splicer Relationship Specialty Start Date End Date Tim Altman MD [address] [place] [address] PCP - General Internal Medicine 12/03/15 documented as of this encounter
--- OUTSIDE RECORDS SUMMARY | 2024-06-17 14:47 | XMS_ITS | Encounter Summary ---
Author Organization [facility] Address [address] [place] [address] Phone Care Team Providers Care Manager Commercial Real Estate Name Role Phone Tim Altman MD Primary Care Provider Encounter Details Date Type Department Care Team (Late st Contact Info) Description 01/08/2023 Refill [facility] - [place] [address] [place] [address] Tim Altman MD [address] [facility] [place] [address] Social History Tobacco Use Types Packs/Day Years Used Date Smoking Tobacco: Former Cigarettes Q uit: 07/23/1969 Passive Smoke Exposure: Past Smokeless Tobacco: Never Alcohol Use Standard Drinks/Week Comments Not Currently 0 (1 standard drink = 0.6 oz pur e alcohol) PHQ-2 Answer Date Recorded Total Score - Questions 1-9 0 11/2021 Sexually Active Control Partners Comments Not Currently Comments No Sex and Gender Information Value Date Recorded Sex Assigned at Not on file Legal Sex Female 7:42 PM CDT Gender Identity Not on file Sexual Orientation Not on file COVID-19 Exposure Response Date Recorded In the last 10 days, have yo u been in contact with someone who was confirmed or suspected to have Coronavirus/COVID-19? No / Unsure 01/07/2023 8:24 AM CDT documented as of this encounter Miscellaneous Notes * Telephone Encounter - Tim Altman MD - 01/08/2023 5:12 PM CDT Patanol chg to Azelastine eye drops due to ins documented in this encounter Plan of Treatment Upcoming Encounters Date Type Department Care Team (Late st Contact Info) Description 06/30/2024 10:00 AM EXPLOSIVES MIXER OPERATOR [facility] [address] [place] [phone] Raul Young MD [address] [place] [address] Brandi Coffey, PT [place] Discharge Disposition: Discharged to home or Selfcare 08/31/2024 9:30 AM CDT Office Visit [facility] - [place] [address] [place] [address] Tim Altman MD [address] [place] [address] documented as of this encounter Visit Diagnoses Not on filedocumented in this encounter Additional Health Concerns Assessment Noted Time PHQ-9 Depression Total Score: 0 06/18/19 21 3:00 PM EXPLOSIVES MIXER OPERATOR documented as of this encounter Care Teams Manager Commercial Real Estate Relationship Specialty Start Date End Date Tim Altman MD [address] [place] [address] PCP - General Internal Medicine 12/03/15 documented as of this encounter
--- OUTSIDE RECORDS SUMMARY | 2024-06-17 14:47 | XMS_ITS | Encounter Summary ---
Author Organization [facility] Address [address] [place] [address] Phone Care Team Providers Care Rolling Down Machine Operator Name Role Phone Tim Altman MD Primary Care Provider Reason for Visit * Reason Comments Medication Refill Encounter Details Date Type Department Care Team (Late st Contact Info) Description 03/28/2023 Refill [facility] - [place] [address] [place] [address] Sangita Best, [facility] [address] [place] [address] Medication Refill Social History Tobacco [...] Telephone Encounter - Courtney Guzman RN - 03/30/2023 8:55 AM CDT Medication(s) [facility] Med[facility] Refill Standing Order for Pediatricand Adult Patients. Requested Prescriptions Pending Prescriptions Disp Refills ??? metoprolol tartrate (LOPRESSOR) 25 MG Tablet [Pharmacy Med Name: METOPROLOL TARTRATE 25MG TABLET] 180 Tablet 0 Sig: TAKE 1 TABLET BY MOUTH TWO (2) TIMES DAILY. Beta-Blockers Protocol Passed - 03/28/2023 3:08 PM Passed - BP on record in the past year Clinician-entered: BP Readings from Last 3 Encounters: 01/07/23 112/70 07/09/22 136/68 01/14/22 (!) 178/102 Patient-entered: No data recorded Passed - Visit with relevant provider in past 12 months or upcoming 90 days Recent Visits Date Type Provider Dept 01/07/23 Office Visit Tim Altman MD [facility] [place] 07/09/22 Office Visit Tim Altman MD [facility] [place] Showing recent visits within past 365 days and meeting all other requirements Future Appointments No visits were found meeting these conditions. Showing future appointments within next 90 days and meeting all other requirements documented in this encounter Plan of Treatment Upcoming Encounters Date Type Department Care Team (Late st Contact Info) Description 06/30/2024 10:00 AM IRONER MACHINE Physical Therapy [facility] Rehab at [facility] [address] [facility], [address] [place] [address] Raul Young MD [address] [place] [address] Brandi Coffey, PT [place] Discharge Disposition: Discharged to home or Selfcare 08/31/2024 9:30 AM CDT Office [facility] - Internal [facility] - [place] [address] [place] [phone] Tim Altman MD [address] [place] [address] documented as of this encounter Visit Diagnoses Not on filedocumented in this encounter Additional Health Concerns Assessment Noted Time PHQ-9 Depression Total Score: 0 06/18/19 21 3:00 PM IRONER MACHINE documented as of this encounter Care Teams Rolling Down Machine Operator Relationship Specialty Start Date End Date Tim Altman MD [address] [place] [address] PCP - General Internal Medicine 12/03/15 documented as of this encounter
--- OUTSIDE RECORDS SUMMARY | 2024-06-17 14:47 | XMS_ITS | Encounter Summary ---
Author Organization [facility] Address [address] [place] [address] Phone Care Team Providers Care Retail Consultant Name Role Phone Tim Altman MD Primary Care Provider [phone] Reason for Visit * Reason Comments Medication Refill Encounter Details Date Type Department Care Team (Late st Contact Info) Description 05/29/2023 Refill [facility] - Internal Medicine - [place] [address] [place] [address] Tim Altman MD [address] [place] [address] Medication Refill Social History Tobacco [...] Telephone Encounter - Courtney Guzman RN - 05/29/2023 9:48 AM CST Medication(s) refilled and signed [facility] Chronic Medication Refill Standing Order for Pediatricand Adult Patients. Requested Prescriptions Pending Prescriptions Disp Refills ??? omeprazole (PriLOSEC) 40 MG CAPSULE DELAYED RELEASE [Pharmacy Med Name: OMEPRAZOLE 40MG CAPSULEDR] 90 Capsule 1 Sig: TAKE ONE CAPSULE BY MOUTH DAILY Proton Pump Inhibitors Protocol Passed - 05/29/2023 9:44 AM Passed - Visit with relevant provider in past 12 months or upcoming 90 days Recent Visits Date Type Provider Dept 01/07/23 Office Visit Tim Altman MD [facility] [place] 07/09/22 Office Visit Tim Altman MD [facility] [place] Showing recent visits within past 365 days and meeting all other requirements Future Appointments Date Type Provider Dept 07/15/23 Appointment Tim Altman MD [facility] Showing future appointments within next 90 days and meeting all other requirements OM STUDIO COORDINATOR documented in this encounter Plan of Treatment Upcoming Encounters Date Type Department Care Team (Late st Contact Info) Description 06/30/2024 10:00 AM CUSTOM STUDIO COORDINATOR Physical Therapy [facility] Rehab at [facility] [address] [facility], [address] [place] [address] Raul Young MD [address] [facility] [address] [place] [address] Brandi Coffey, PT [place] Discharge Disposition: Discharged to home or Selfcare 08/31/2024 9:30 AM CDT Office Visit [facility] Group - Internal Medicine - [place] [address] [place] [address] Tim Altman MD [address] [place] [place] [address] documented as of this encounter Visit Diagnoses Not on filedocumented in this encounter Additional Health Concerns Assessment Noted Time PHQ-9 Depression Total Score: 0 06/18/19 21 3:00 PM CUSTOM STUDIO COORDINATOR documented as of this encounter Care Teams Retail Consultant Relationship Specialty Start Date End Date Tim Altman MD [address] [place] [address] PCP - General Internal Medicine 12/03/15 documented as of this encounter
--- OUTSIDE RECORDS SUMMARY | 2024-06-17 14:47 | XMS_ITS | Encounter Summary ---
Author Organization [facility] Address [address] [place] [address] Phone Care Team Providers Care Shoder Filler Name Role Phone Tim Altman MD Primary Care Provider [phone] Reason for Visit * Reason Comments Medication Refill Encounter Details Date Type Department Care Team (Late st Contact Info) Description 04/01/2024 Refill [facility] Medical Group - Internal Medicine - [place] [address] [place] [address] Sangita Best, [facility] [address] [address] Medication Refill Social History Tobacco Use Types Packs/Day Years Used Date Smoking Tobacco: Former Cigarettes Q uit: 07/23/1969 Passive Smoke Exposure: Past Smokeless Tobacco: Never Alcohol Use Standard Drinks/Week Comments Not Currently 0 (1 standard drink = 0.6 oz pur e alcohol) [facility] Utilities Answer Date Recorded In the past 12 months has [employer], gas, oil, or water company threatened to [...] often do you attend chur ch or gnosticism services? Never 09/03/2023 Do you belong to any clubs o r organizations such as buddhism groups, unions, fraternal or athletic groups, or [...] Total Score - Questions 1-9 0 08/14 [facility] - Occupational Stress Questionnaire Answer Date Recorded [...] place to sleep or slept in a half-way (including now)? No 09/03/2023 Sexually Active Control Partners Comments Not Currently Comments No Sex and Gender Information Value Date Recorded Sex Assigned at Not on file Legal Sex Female 7:42 PM CDT Gender Identity Not on file Sexual Orientation Not on file documented as of this encounter Miscellaneous Notes * Telephone Encounter - Courtney Guzman RN - 04/04/2024 9:25 AM CDT Medication(s) [facility] Medication Refill Standing Order for Pediatricand Adult Patients. Requested Prescriptions Pending Prescriptions Disp Refills metoprolol tartrate (LOPRESSOR) 25 MG Tablet [Pharmacy Med Name: METOPROLOL TARTRATE 25MG TABLET] 180 Tablet 0 Sig: TAKE 1 TABLET BY MOUTH TWO (2) TIMES DAILY. Beta-Blockers Protocol Passed - 04/01/2024 3:52 PM Passed - BP on record in the past year Clinician-entered: BP Readings from Last 3 Encounters: 03/09/24 118/74 09/03/23 124/80 01/07/23 112/70 Patient-entered: No data recorded Passed - Visit with relevant provider in past 12 months or upcoming 90 days Recent Visits Date Type Provider Dept 03/09/24 Office Visit Tim Altman MD [facility] 09/03/23 Office Visit Tim Altman MD [facility] [place] Showing recent visits within past 365 days and meeting all other requirements Future Appointments No visits were found meeting these conditions. Showing future appointments within next 90 days and meeting all other requirements documented in this encounter Plan of Treatment Upcoming Encounters Date Type Department Care Team (Late st Contact Info) Description 06/30/2024 10:00 AM ARCHITECTURAL DESIGNER [facility] [address] [place] [address] Raul Young MD [address] [place] [address] Brandi Coffey, PT [place] Discharge Disposition: Discharged to home or Selfcare 08/31/2024 9:30 AM CDT Office Visit [facility] Medical Group - Internal Medicine - [place] [address] [place] [phone] Tim Altman MD [address] [place] [address] documented as of this encounter Visit Diagnoses Not on filedocumented in this encounter Additional Health Concerns Assessment Noted Time PHQ-9 Depression Total Score: 0 09/03/19 24 9:32 AM CDT documented as of this encounter Care Teams Shoder Filler Relationship Specialty Start Date End Date Tim Altman MD [address] [place] [address] PCP - General Internal Medicine 12/03/15 documented as of this encounter
--- OUTSIDE RECORDS SUMMARY | 2024-06-17 14:47 | XMS_ITS | Encounter Summary ---
Author Organization [employer] Care Team Providers Care New Accounts Banking Representative Name Role Phone Tim Altman MD Primary Care Provider [phone] Encounter Details Date Type Department Care Team (Latest Contact Info) Description 09/03/2023 Travel Social History Tobacco Use Types Packs/Day Years Used Date Smoking Tobacco: Former Cigarettes Q uit: 07/23/1969 Passive Smoke Exposure: Past Smokeless Tobacco: Never Alcohol Use Standard Drinks/Week Comments Not Currently 0 (1 standard drink = 0.6 oz pur e alcohol) [facility] Utilities Answer Date Recorded In the past 12 months has [employer] electric, gas, oil, or water company threatened [...] often do you attend chur ch or muslim services? Never 09/03/2023 Do you belong to any clubs o r organizations such as sikh groups, unions, fraternal or athletic groups, or [...] Total Score - Questions 1-9 0 08/14 [facility] - Occupational Stress Questionnaire Answer [...] place to sleep or slept in a fci (including now)? No 09/03/2023 Sexually Active Control Partners Comments Not Currently Comments No Sex and Gender Information Value Date Recorded Sex Assigned at Not on file Legal Sex Female 7:42 PM CDT Gender Identity Not on file Sexual Orientation Not on file documented as of this encounter Functional Status * Audit-C Score Answer Date of Assessment Author 0 09/03/2023 9:33 AM Doris Chandler CMA * Within the last year, have you been humiliated or emotionally abused in other ways by your partner or ex-partner? Answer Date of Assessment Author No 09/03/2023 9:33 AM Doris Chandler CMA * Within the last year, have you been afraid of your partner or ex-partner? Answer Date of Assessment Author No 09/03/2023 9:33 AM Doris Chadnler CMA * Within the last year, have you been raped or forced to have any kind of sexual activity by your partner or ex-partner? Answer Date of Assessment Author No 09/03/2023 9:33 AM Doris Chandler CMA * Within the last year, have you been kicked, hit, slapped, or otherwise physically hurt by your partner or ex-partner? Answer Date of Assessment Author No 09/03/2023 9:33 AM Doris Chandler CMA * Question Answer Date of Assessment Author Q1: How often do you have a drink containing alcohol? Never 09/03/2023 9:33 AM Doris Chandler CMA Q2: How many drinks containing alcohol do you have on a typical day when you are drinking? Patient does not drink 09/03/2023 9:33 AM Doris Chandler CMA Q3: How often do you have six or more drinks on one occasion? Never 09/03/2023 9:33 AM Doris Chandler CMA * Question Answer Date of Assessment Author Little interest or pleasure in doing things Not at all 09/03/2023 9:32 AM Doris Chandler CMA Feeling down, depressed, or hopeless Not at all 09/03/2023 9:32 AM Doris Chandler CMA * Over the past 2 weeks, how often have you been bothered by any of the following problems? Question Answer Date of Assessment Author Patient Health Questionnaire -2 Score 0 09/03/2023 9:32 AM CDT Doris Babb CMA documented as of this encounter Plan of Treatment Upcoming Encounters Date Type Department Care Team (Late st Contact Info) Description 06/30/2024 10:00 AM CHOKE REAMER [facility] [address] [place] [address] Raul Young MD [address] [place] [address] Brandi Coffey, PT [place] Discharge Disposition: Discharged to home or Selfcare 08/31/2024 9:30 AM CDT Office Visit [facility] - Internal Medicine [facility] [address] [place] [phone] Tim Altman MD [address] [place] [address] documented as of this encounter Visit Diagnoses Not on filedocumented in this encounter Additional Health Concerns Assessment Noted Time PHQ-9 Depression Total Score: 0 09/03/19 24 9:32 AM CDT documented as of this encounter Care Teams New Accounts Banking Representative Relationship Specialty Start Date End Date Tim Altman MD [address] [place] [address] PCP - General Internal Medicine 12/03/15 documented as of this encounter
--- OUTSIDE RECORDS SUMMARY | 2024-06-17 14:47 | XMS_ITS | Encounter Summary ---
Author Organization [facility] Address [address] [place] [address] Phone Care Team Providers Care Contract Mail Carrier Name Role Phone Tim Altman MD Primary Care Provider [phone] Sanaz Mendoza RN Unavailable Unavailable Reason for Visit * Reason Comments Medication Refill Encounter Details Date Type Department Care Team (Late st Contact Info) Description 09/25/2023 Refill [facility] - [place] [address] [facility] [place] [address] Sangita Best, [facility] [address] [place] [address] Medication Refill Social History Tobacco Use Types Packs/Day Years Used Date Smoking Tobacco: Former Cigarettes Q uit: 07/23/1969 Passive Smoke Exposure: Past Smokeless Tobacco: Never Alcohol Use Standard Drinks/Week Comments Not Currently 0 (1 standard drink = 0.6 oz pur e alcohol) [facility] Utilities Answer Date Recorded In the past 12 months has [employer], gas, oil, or water company threatened to [...] often do you attend chur ch or baptism services? Never 09/03/2023 Do you belong to any clubs o r organizations such as adventism groups, unions, fraternal or athletic groups, or [...] Total Score - Questions 1-9 0 08/14 [facility] - Occupational [...] place to sleep or slept in a nursing home (including now)? No 09/03/2023 Sexually Active Control Partners Comments Not Currently Comments No Sex and Gender Information Value Date Recorded Sex Assigned at Not on file Legal Sex Female 7:42 PM CDT Gender Identity Not on file Sexual Orientation Not on file documented as of this encounter Miscellaneous Notes * Telephone Encounter - Mckenna Bauman RN - 09/26/2023 2:02 PM CDT Medication(s) [facility] and [facility] Medication Refill Standing Order for Pediatricand Adult Patients. Requested Prescriptions Pending Prescriptions Disp Refills metoprolol tartrate (LOPRESSOR) 25 MG Tablet [Pharmacy Med Name: METOPROLOL TARTRATE 25MG TABLET] 180 Tablet 0 Sig: TAKE 1 TABLET BY MOUTH TWO (2) TIMES DAILY. Beta-Blockers Protocol Passed - 09/25/2023 5:48 PM Passed - BP on record in the past year Clinician-entered: BP Readings from Last 3 Encounters: 09/03/23 124/80 01/07/23 112/70 07/09/22 136/68 Patient-entered: No data recorded Passed - Visit with relevant provider in past 12 months or upcoming 90 days Recent Visits Date Type Provider Dept 09/03/23 Office Visit Tim Altman MD [facility] 01/07/23 [facility] [place] Showing recent visits within past 365 days and meeting all other requirements Future Appointments No visits were found meeting these conditions. Showing future appointments within next 90 days and meeting all other requirements documented in this encounter Plan of Treatment Upcoming Encounters Date Type Department Care Team (Late st Contact Info) Description 06/30/2024 10:00 AM CAR WORKER [facility] [address] [place] [address] Raul Young MD [address] [place] [address] Brandi Coffey, PT [place] Discharge Disposition: Discharged to home or Selfcare 08/31/2024 9:30 AM CDT Office [facility] Medical [facility] - Internal Medicine - [place] [address] [place] [phone] Tim Altman MD [address] [place] [address] documented as of this encounter Visit Diagnoses Not on filedocumented in this encounter Additional Health Concerns Assessment Noted Time PHQ-9 Depression Total Score: 0 09/03/19 24 9:32 AM CDT documented as of this encounter Care Teams Contract Mail Carrier Relationship Specialty Start Date End Date Tim Altman MD [address] [place] [address] PCP - General Internal Medicine 12/03/15 Sanaz Mendoza, RN [place] Nurse Aoc Airspace Control Officer 03/09/24 03/09/24 documented as of this encounter
--- OUTSIDE RECORDS SUMMARY | 2024-06-17 14:47 | XMS_ITS | Encounter Summary ---
Author Organization [facility] Address [address] [place] [address] Phone Care Team Providers Care Application Security Specialist Name Role Phone Tim Altman MD Primary Care Provider [phone] Encounter Details Date Type Department Care Team (Late st Contact Info) Description 06/06/2024 Results Follow-Up [facility] - Internal Medicine - [place] [address] [place] [phone] Tim Altman MD [address] [facility] [facility] [place] [address] Social History Tobacco Use Types Packs/Day Years Used Date Smoking Tobacco: Former Cigarettes Q uit: 07/23/1969 Passive Smoke Exposure: Past Smokeless Tobacco: Never Alcohol Use Standard Drinks/Week Comments Not Currently 0 (1 standard drink = 0.6 oz pur e alcohol) [facility] Utilities Answer Date Recorded In the past 12 months has [employer] electric, gas, oil, or water company threatened [...] week 09/03/2023 How often do you attend [facility] or yazdanism services? Never 09/03/2023 Do you belong to any clubs o r organizations such as lutheran groups, unions, fraternal or athletic groups, or [...] Total Score - Questions 1-9 0 08/14 [facility] Occupat ional Health - Occupational [...] place to sleep or slept in a chcf (including now)? No 09/03/2023 Sexually Active Control [...] st Contact Info) Description 06/30/2024 10:00 AM TRANSPORT CONDUCTOR [facility] [address] [facility], [address] [place] [address] Raul Young MD [address] [place] [address] Brandi Coffey, PT [place] Discharge Disposition: Discharged to home or Selfcare 08/31/2024 9:30 AM CDT [facility] Visit [facility] [place] [address] [place] [address] Tim Altman MD [address] [place] [address] documented as of this encounter Visit Diagnoses Not on filedocumented in this encounter Additional Health Concerns Assessment Noted Time PHQ-9 Depression Total Score: 0 09/03/19 24 9:32 AM CDT documented as of this encounter Care Teams Application Security Specialist Relationship Specialty Start Date End Date Tim Altman MD [address] [place] [address] PCP - General Internal Medicine 12/03/15 documented as of this encounter
--- OUTSIDE RECORDS SUMMARY | 2024-06-17 14:47 | XMS_ITS | Encounter Summary ---
Author Organization [facility] Address [address] [place] [address] Phone Care Team Providers Care Ledger Clerk Name Role Phone Tim Altman MD Primary Care Provider Reason for Visit * Reason Comments Medication Refill Encounter Details Date Type Department Care Team (Late st Contact Info) Description 12/29/2023 Refill [facility] - [place] [address] [place] [phone] Sangita Best, [facility] [address] [place] [address] Medication Refill Social History Tobacco Use Types Packs/Day Years Used Date Smoking Tobacco: Former Cigarettes Q uit: 07/23/1969 Passive Smoke Exposure: Past Smokeless Tobacco: Never Alcohol Use Standard Drinks/Week Comments Not Currently 0 (1 standard drink = 0.6 oz pur e alcohol) [facility] Utilities Answer Date Recorded In the past 12 months has [employer], gas, oil, or water company threatened to [...] often do you attend chur ch or buddhist services? Never 09/03/2023 Do you belong to any clubs o r organizations such as episcopalian groups, unions, fraternal or athletic groups, or [...] Total Score - Questions 1-9 0 08/14 [facility] - Occupational Stress Questionnaire Answer Date Recorded [...] place to sleep or slept in a mcfp (including now)? No 09/03/2023 Sexually Active Control Partners Comments Not Currently Comments No Sex and Gender Information Value Date Recorded Sex Assigned at Not on file Legal Sex Female 7:42 PM CDT Gender Identity Not on file Sexual Orientation Not on file documented as of this encounter Miscellaneous Notes * Telephone Encounter - Courtney Guzman RN - 12/29/2023 11:06 AM CDT Medication[facility]) [facility] Medication Refill Standing Order for Pediatricand Adult Patients. Requested Prescriptions Pending Prescriptions Disp Refills metoprolol tartrate (LOPRESSOR) 25 MG Tablet [Pharmacy Med Name: METOPROLOL TARTRATE 25MG TABLET] 180 Tablet 0 Sig: TAKE 1 TABLET BY MOUTH TWO (2) TIMES DAILY. Beta-Blockers Protocol Passed - 12/29/2023 9:40 AM Passed - BP on record in the past year Clinician-entered: BP Readings from Last 3 Encounters: 09/03/23 124/80 01/07/23 112/70 07/09/22 136/68 Patient-entered: No data recorded Passed - Visit with relevant provider in past 12 months or upcoming 90 days Recent Visits Date Type Provider Dept 09/03/23 Office Visit Tim Altman MD [facility] [place] 01/07/23 Office Visit Tim Altman MD [facility] [place] Showing recent visits within past 365 days and meeting all other requirements Future Appointments Date Type Provider Dept 03/09/24 Appointment Tim Altman MD [facility] [place] Showing future appointments within next 90 days and meeting all other requirements documented in this encounter Plan of Treatment Upcoming Encounters Date Type Department Care Team (Late st Contact Info) Description 06/30/2024 10:00 AM TECHNICIAN PLANT AND MAINTENANCE [facility] [address] [place] [address] Raul Young MD [address] [place] [address] Brandi Coffey, PT [place] Discharge Disposition: Discharged to home or Selfcare 08/31/2024 9:30 AM CDT [facility] - [place] [address] [place] [phone] Tim Altman MD [address] [place] [address] documented as of this encounter Visit Diagnoses Not on filedocumented in this encounter Additional Health Concerns Assessment Noted Time PHQ-9 Depression Total Score: 0 09/03/19 24 9:32 AM CDT documented as of this encounter Care Teams Ledger Clerk Relationship Specialty Start Date End Date Tim Altman MD [address] [place] [address] PCP - General Internal Medicine 12/03/15 documented as of this encounter
--- OUTSIDE RECORDS SUMMARY | 2024-06-17 14:47 | XMS_ITS | Encounter Summary ---
Author Organization [facility] Address [address] [place] [address] Phone Care Team Providers Care Synthetic Plasterer Name Role Phone Tim Altman MD Primary Care Provider [phone] Reason for Visit * Reason Comments Patient Outreach Encounter Details Date Type Department Care Team ([facility] st Contact Info) Description 05/18/2023 Care Management [facility] Fpga Design Engineer Management [address] [place] [address] Sanaz Mendoza, RN [place] Patient Outreach Social History Tobacco Use Types Packs/Day Years [...] as of this encounter Progress Notes * Sanaz Mendoza RN - 05/18/2023 3:58 PM CST Lexi Jose Ramon Ewa was identified as high risk MSSP on 05/18/23 . CM outreach placed offer RN Care Management assistance. Per provider patient has no care management needs at this time. Engagement status updated: No-per provider RAM DIRECTOR CABLE TELEVISION documented in this encounter Plan of Treatment Upcoming Encounters Date Type Department Care Team (Late st Contact Info) Description 06/30/2024 10:00 AM PROGRAM DIRECTOR CABLE TELEVISION [facility] [address] [place] [address] Raul Young MD [address] [place] [address] Brandi Coffey, PT [place] Discharge Disposition: Discharged to home or Selfcare 08/31/2024 9:30 AM CDT Office Visit [facility] - Internal Medicine [place] [address] [place] [phone] Tim Altman MD [address] [place] [address] documented as of this encounter Visit Diagnoses Not on filedocumented in this encounter Additional Health Concerns Assessment Noted Time PHQ-9 Depression Total Score: 0 06/18/19 21 3:00 PM PROGRAM DIRECTOR CABLE TELEVISION documented as of this encounter Care Teams Synthetic Plasterer Relationship Specialty Start Date End Date Tim Altman MD [address] [place] [address] PCP - General Internal Medicine 12/03/15 documented as of this encounter
--- OUTSIDE RECORDS SUMMARY | 2024-06-17 14:47 | XMS_ITS | Encounter Summary ---
Author Organization [facility] Care Team Providers Care Infection Control Nurse Name Role Phone Tim Altman MD Primary Care Provider Encounter Details Date Type Department Care Team (Latest Contact Info) Description 01/07/2023 Travel Social History Tobacco Use Types Packs/Day [...] AM CDT documented as of this encounter Plan of Treatment Upcoming Encounters Date Type Department Care Team (Late st Contact Info) Description 06/30/2024 10:00 AM HEARING AID DISPENSER Physical Therapy [facility] Rehab at [facility] [address] [place] [address] Raul Young MD [address] [place] [address] Brandi Coffey, PT [place] Discharge Disposition: Discharged to home or Selfcare 08/31/2024 9:30 AM CDT [facility] [address] [place] [phone] Tim Altman MD [address] [place] [address] documented as of this encounter Visit Diagnoses Not on filedocumented in this encounter Additional Health Concerns Assessment Noted Time PHQ-9 Depression Total Score: 0 06/18/19 21 3:00 PM HEARING AID DISPENSER documented as of this encounter Care Teams Infection Control Nurse Relationship Specialty Start Date End Date Tim Altman MD [address] [place] [address] PCP - General Internal Medicine 12/03/15 documented as of this encounter
--- OUTSIDE RECORDS SUMMARY | 2024-06-17 14:47 | XMS_ITS | Encounter Summary ---
Author Organization [facility] Address [address] [place] [address] Phone Care Team Providers Care Glue Drier Operator Name Role Phone Tim Altman MD Primary Care Provider [phone] Sanaz Mendoza RN Unavailable Unavailable Reason for Visit * Reason Onset Date Comments Patient Outreach 03/09/2024 High Risk MSSP Encounter Details Date Type Department Care Team (Late st Contact Info) Description 03/09/2024 Patient Outreach [facility] Decoration Checker Management [address] [place] [address] Sanaz Mendoza, RN MD Patient Outreach (High Risk MSSP ) Social History Tobacco Use Types Packs/Day Years Used Date Smoking Tobacco: Former Cigarettes Q uit: 07/23/1969 Passive Smoke Exposure: Past Smokeless Tobacco: Never Alcohol Use Standard Drinks/Week Comments Not Currently 0 (1 standard drink = 0.6 oz pur e alcohol) [facility] Utilities Answer Date Recorded In the past 12 months has [employer], gas, oil, or water [employer] threatened to shut off services in your [...] week 09/03/2023 How often do you attend [facility] or pentecostalism services? Never 09/03/2023 Do you belong to any clubs o r organizations such as zoroastrianism groups, unions, fraternal or athletic groups, or [...] Total Score - Questions 1-9 0 08/14 [facility] Occupat ional Health - Occupational Stress [...] Progress Notes * Sanaz Mendoza RN - 03/09/2024 1:19 PM CDT Lexi Mcneil was identified as high risk MSSP on 03/09/24 . Patient was seen by in office today. Per provider, patient has no Care Management needs at present. documented in this encounter Plan of Treatment Upcoming Encounters Date Type Department Care Team (Late st Contact Info) Description 06/30/2024 10:00 AM DIRECTOR DIVERSITY Physical Therapy [facility] Rehab at [facility] [address] [place] [address] Raul Young MD [address] [place] [address] Brandi Coffey, PT [place] Discharge Disposition: Discharged to home or Selfcare 08/31/2024 9:30 AM CDT Office Visit [facility] Group - Internal Medicine - [place] [address] [place] [phone] Tim Altman MD [address] [place] [address] documented as of this encounter Visit Diagnoses Not on filedocumented in this encounter Additional Health Concerns Assessment Noted Time PHQ-9 Depression Total Score: 0 09/03/19 24 9:32 AM CDT documented as of this encounter Care Teams Glue Drier Operator Relationship Specialty Start Date End Date Tim Altman MD [address] [place] [address] PCP - General Internal Medicine 12/03/15 Sanaz Mendoza RN MD Nurse Frame Stripper And Crusher 03/09/24 03/09/24 documented as of this encounter
--- OUTSIDE RECORDS SUMMARY | 2024-06-17 14:47 | XMS_ITS | Encounter Summary ---
Author Organization [facility] Address [address] [place] [address] Phone Care Team Providers Care Vehicle Assembly Inspector Name Role Phone Tim Altman MD Primary Care Provider Encounter Details Date Type Department Care Team (Late st Contact Info) Description 04/21/2024 Telephone [facility] - [place] [address] [place] [address] Tim Altman MD [address] [place] [place] [address] Social History Tobacco Use Types Packs/Day Years Used Date Smoking Tobacco: Former Cigarettes Q uit: 07/23/1969 Passive Smoke Exposure: Past Smokeless Tobacco: Never Alcohol Use Standard Drinks/Week Comments Not Currently 0 (1 standard drink = 0.6 oz pur e alcohol) [facility] Utilities Answer Date Recorded In the past 12 months has [employer], gas, oil, or water [employer] threatened to shut off services in your [...] often do you attend chur ch or yazidism services? Never 09/03/2023 Do you belong to any clubs o r organizations such as nondenominational groups, unions, fraternal or athletic groups, or [...] Total Score - Questions 1-9 0 08/14 [facility] of Occupat ional [facility] - Occupational Stress Questionnaire Answer Date [...] place to sleep or slept in a care home (including now)? No 09/03/2023 Sexually Active Control Partners Comments Not Currently Comments No Sex and Gender Information Value Date Recorded Sex Assigned at Not on file Legal Sex Female 7:42 PM CDT Gender Identity Not on file Sexual Orientation Not on file documented as of this encounter Miscellaneous Notes * Telephone Encounter - Doris Babb CMA - 04/21/2024 2:09 PM RISK LEAD Sunita @ [facility] faxed a medical clearance form over to ananda Altman order labs that needs to be done on 05/10/24. \was given to Dr. Altman. LEAD LEAD documented in this encounter Plan of Treatment Upcoming Encounters Date Type Department Care Team (Late st Contact Info) Description 06/30/2024 10:00 AM RISK LEAD [facility] [address] [place] [address] Raul Young MD [address] [place] [address] Brandi Coffey, PT [place] Discharge Disposition: Discharged to home or Selfcare 08/31/2024 9:30 AM CDT Office Visit [facility] Medical Group - Internal Medicine [place] [address] [place] [place] [address] Tim Altman MD [address] [place] [address] documented as of this encounter Visit Diagnoses Not on filedocumented in this encounter Additional Health Concerns Assessment Noted Time PHQ-9 Depression Total Score: 0 09/03/19 24 9:32 AM CDT documented as of this encounter Care Teams Vehicle Assembly Inspector Relationship Specialty Start Date End Date Tim Altman MD [address] [place] [address] PCP - General Internal Medicine 12/03/15 documented as of this encounter
--- OUTSIDE RECORDS SUMMARY | 2024-06-17 14:47 | XMS_ITS | Encounter Summary ---
Author Organization [facility] Address [address] [place] [address] Phone Care Team Providers Care Elevator Mechanic Name Role Phone Tim Altman MD Primary Care Provider Encounter Details Date Type Department Care Team (Late st Contact Info) Description 01/07/2023 Telephone [facility] - [place] [address] [place] [address] Tim Altman MD [address] [facility] [place] [address] Social History Tobacco Use Types Packs/Day Years Used Date Smoking Tobacco: Former Cigarettes Q uit: 07/23/1969 Passive Smoke Exposure: Past Smokeless Tobacco: Never Alcohol Use Standard Drinks/Week Comments Not Currently 0 (1 standard drink = 0.6 oz pur e alcohol) PHQ-2 Answer Date Recorded Total Score - Questions 1-9 0 /0 11/2021 Sexually Active Control Partners Comments Not [...] encounter Miscellaneous Notes * Telephone Encounter - September - 01/07/2023 8:30 AM CDT Patient declined SDOH documented in this encounter Plan of Treatment Upcoming Encounters Date Type Department Care Team (Late st Contact Info) Description 06/30/2024 10:00 AM COMMONWEALTH ATTORNEY Physical Therapy [facility] Re[facility] at [facility] [address] [place] [address] Raul Young MD [address] [place] [address] Brandi Coffey, [place] Discharge Disposition: Discharged to home or Selfcare 08/31/2024 9:30 AM CDT Office Visit [facility] [address] [place] [phone] Tim Altman MD [address] [place] [address] documented as of this encounter Visit Diagnoses Not on filedocumented in this encounter Additional Health Concerns Assessment Noted Time PHQ-9 Depression Total Score: 0 06/18/19 21 3:00 PM COMMONWEALTH ATTORNEY documented as of this encounter Care Teams Elevator Mechanic Relationship Specialty Start Date End Date Tim Altman MD [address] [place] [address] PCP - General Internal Medicine 12/03/15 documented as of this encounter
--- OUTSIDE RECORDS SUMMARY | 2024-06-17 14:47 | XMS_ITS | Encounter Summary ---
Author Organization [facility] Address [address] [place] [address] Phone Care Team Providers Care Air Duct Mechanic Name Role Phone Tim Altman MD Primary Care Provider Encounter Details Date Type Department Care Team (Late st Contact Info) Description 01/07/2023 Telephone [facility] - [place] [address] [place] [address] Tim Altman MD [address] [facility] [place] [address] Social History Tobacco Use Types [...] Telephone Encounter - Doris Babb CMA - 01/13/2023 7:58 AM CDT Sent documented in this encounter Plan of Treatment Upcoming Encounters Date Type Department Care Team (Late st Contact Info) Description 06/30/2024 10:00 AM ANTIQUE REFINISHER [facility] [address] [place] [address] Raul Young MD [address] [place] [address] Brandi Coffey, PT [place] Discharge Disposition: Discharged to home or Selfcare 08/31/2024 9:30 AM CDT Office Visit [facility] - Internal Medicine - [place] [address] [place] [address] Tim Altman MD [address] [place] [address] documented as of this encounter Visit Diagnoses Not on filedocumented in this encounter Additional Health Concerns Assessment Noted Time PHQ-9 Depression Total Score: 0 06/18/19 21 3:00 PM ANTIQUE REFINISHER documented as of this encounter Care Teams Air Duct Mechanic Relationship Specialty Start Date End Date Tim Altman MD [address] [place] [address] PCP - General Internal Medicine 12/03/15 documented as of this encounter
--- OUTSIDE RECORDS SUMMARY | 2024-06-17 14:47 | XMS_ITS | Encounter Summary ---
Author Organization [facility] Address [address] [place] [address] Phone Care Team Providers Care Health And Fitness Professor Name Role Phone Tim Altman MD Primary Care Provider Reason for Visit * Reason Comments Esophageal Reflux 6 mo f/u Dizziness Little blood in ears Encounter Details Date Type Department Care Team (Late st Contact Info) Description 09/03/2023 9:30 AM CDT [facility] Visit [facility] - [place] [address] [place] [address] Tim Altman MD [address] [place] [address] Essential hypertension, benign (Primary Dx); Other hyperlipidemia; GERD without esophagitis; Restless leg syndrome; Reflex sympathetic dystrophy of left lower extremity Discharge Disposition: Discharged to home or Selfcare Social History Tobacco Use Types Packs/Day Years Used Date Smoking Tobacco: Former Cigarettes Q uit: 07/23/1969 Passive Smoke Exposure: Past Smokeless Tobacco: Never Tobacco Cessation:Counseling Given: No Alcohol Use Standard Drinks/Week Comments Not Currently 0 (1 standard drink = 0.6 oz pur e alcohol) [facility] Utilities Answer Date Recorded In the past 12 months has e electric, gas, oil, or water company [...] often do you attend chur ch or advent services? Never 09/03/2023 Do you belong to any clubs o r organizations such as christianity groups, unions, fraternal or athletic groups, or [...] Total Score - Questions 1-9 0 08/14 [facility] - Occupational [...] place to sleep or slept in a fdc (including now)? No 09/03/2023 Sexually Active Control Partners Comments Not Currently Comments No Sex and Gender Information Value Date Recorded Sex Assigned at Not on file Legal Sex Female 7:42 PM CDT Gender Identity Not on file Sexual Orientation Not on file documented as of this encounter Last Filed Vital Signs Vital Sign Reading Time Taken Comments Blood Pressure 124/80 09/03/2023 9:28 AM CDT Pulse 82 09/03/2023 9:28 AM CDT Temperature 36.2 ??C (97.2 ??F) 09/03/2023 9:28 AM CD T Respiratory Rate - - Oxygen Saturation 96% 09/03/2023 9:28 AM CDT Inhaled Oxygen Concentration - - Weight 88.5 kg (195 lb) 09/03/2023 9:28 AM CDT Height 157.5 cm (5' 2 ) 09/03/2023 9:28 AM CDT Body Mass Index 35.67 09/03/2023 9:28 AM CDT documented in this encounter Functional Status * Audit-C Score Answer Date of Assessment Author 0 09/03/2023 9:33 AM CDT Doris Babb CMA * Within the last year, have you been humiliated or emotionally abused in other ways by your partner or ex-partner? Answer Date of Assessment Author No 09/03/2023 9:33 AM CDT Doris Babb CMA * Within the last year, have [...] Questionnaire -2 Score 0 09/03/2023 9:32 AM Doris Chandler CMA documented as of this encounter Progress Notes * Doris Babb CMA - 09/03/2023 9:30 AM CDT Lexi Mcneil is a 68 y.o. female with current BMI: Body mass index is 35.67 kg/m??. Interventions discussed including: encourage daily physical activity and well- balanced diet. * Doris Babb CMA - 09/03/2023 9:30 AM CDT Lexi screened for Social Determinants of Health and no needs identified. * Doris Babb CMA - 09/03/2023 9:30 AM CDT Lexi Mcneil, 68 y.o., female is here for Esophageal Reflux (6 mo f/u) and Dizziness (Little blood in ears) Medication Refills: Patient reports/denies need for medication refills. Orders Pended: no Requested Prescriptions No prescriptions requested or ordered in this encounter Home Medications Medication Sig Start Date End Date Taking? Authorizing Provider acyclovir (ZOVIRAX) 400 MG Tablet Take 1 Tab by mouth 3 times daily. 05/22/20 Yes Tim Altman MD albuterol 108 (90 Base) MCG/ACT Aerosol Solution take 1-2 Puffs by inhalation every 4 hours as needed for Cough. 01/14/22 Yes Tim Altman MD aspirin EC 81 MG Tablet Delayed Response Take 81 mg by mouth daily. Yes Provider, HistoricalMD azaTHIOprine (IMURAN) 50 MG Tablet 01/01/22 Yes Provider, MD Steffen azelastine (OPTIVAR) 0.05 % Solution Place 1 Drop in both eyes 2 times daily. Use in affected eye(s) 01/08/23 Yes Tim Altman MD carbidopa-levodopa (SINEMET) 25-100 MG Tablet 05/29/23 Yes Provider, MD Steffen carbidopa-levodopa CR (SINEMET CR) 50-200 MG Tablet Controlled Release 05/14/20 Provider, MD Steffen celecoxib (CeleBREX) 200 MG Capsule 04/06/20 Yes Provider, MD Steffen gabapentin (NEURONTIN) 600 MG Tablet 04/06/20 Yes Provider, MD Steffen metoprolol tartrate (LOPRESSOR) 25 MG Tablet TAKE 1 TABLET BY MOUTH TWO (2) TIMES DAILY. 07/13/23 Yes Sangita Best PAC olopatadine (PATANOL) 0.1 % Solution Place 1 Drop in affected eye(s) 2 times daily as needed for Allergies. 01/07/23 Yes Tim Altman MD omeprazole (PriLOSEC) 40 MG CAPSULE DELAYED RELEASE TAKE ONE CAPSULE BY MOUTH DAILY 05/29/23 Yes Tim Altman MD ondansetron (ZOFRAN) 4 MG Tablet Take 4 mg by mouth. Yes Provider, MD Steffen predniSONE (DELTASONE) 5 MG Tablet Take 5 mg by mouth daily. 07/16/23 Yes ProviderSteffen MD traMADol (ULTRAM) 50 MG Tablet 04/16/20 Yes Provider, MD Steffen There are no discontinued medications. I have reviewed the home medication list with the patient and have reconciled discrepancies. The list is accurate to the best of my knowledge. Smoking Status: Social History Tobacco Use Smoking status: Former Types: Cigarettes Quit date: 07/23/1969 Years since quittin.1 Passive exposure: Past Smokeless tobacco: Never Vaping Use Vaping Use: Never used Substance Use Topics Alcohol use: Not Currently Drug use: Never Smoking Cessation Counseling Given: no Health Care Maintenance: Health Maintenance Due Topic Date Due Hepatitis C Virus (HCV) Screening Never done SARS-COV-2 Immunization (1) Never done DTaP/Tdap/Td Immunization (1 - Tdap) Never done Respiratory Syncytial Virus (RSV) Immunization (Adult - or age 60+ years) (1 - 1-dose 60+ series) Never done DEXA Bone Density 12/18/2022 Orders Pended: no The following BPA's have been addressed with the patient today: BMI, Smoking, Depression, and Fall Risk * Tim Altman MD - 09/03/2023 9:30 AM CDT PROGRESS NOTE [facility] - [place] [address] PHONE: [phone] FAX: [phone] 09/03/2023 NAME: Lexi Mcneil, : 1955, Assessment ASSESSMENT & PLAN: Return in about 6 months (around 03/05/2024) for htn. Diagnoses and all orders for this visit: Essential hypertension, benign Comments: Controlled. Continue current medication. Other hyperlipidemia Comments: Continue low-cholesterol diet. GERD without esophagitis Comments: Decrease omeprazole to 20 mg daily. Restless leg syndrome Comments: Stable. Continue current medication. Reflex sympathetic dystrophy of left lower extremity Comments: Stable. Continue current medication. Other orders - carbidopa-levodopa (SINEMET) 25-100 MG Tablet - predniSONE (DELTASONE) 5 MG Tablet; Take 5 mg by mouth daily. - aspirin EC 81 MG Tablet Delayed Response; Take 81 mg by mouth daily. - omeprazole (PriLOSEC) 20 MG CAPSULE DELAYED RELEASE; Take 1 Capsule by mouth daily. - xfbhfdiy-pifywxiif-efyueovwbbktfh (CORTISPORIN) 3.5-13527-8 Solution; Place 3 Drops in left ear in the morning and at bedtime for 7 days. Patient is advised not to use cotton tips in the ear. Does have small laceration. And mild inflammation of ear canal. Will treat with Cortisporin ear drops. Follow-up in 6 months, sooner if needed. Chief Complaint Patient presents with Esophageal Reflux 6 mo f/u Dizziness Little blood in ears Esophageal Reflux Dizziness Patient is here for follow-up for hypertension other medical problems. 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 Recovering well. Had itchy left ear. Use cotton tip. Noticed blood. Toleratingcurrent medications well. ROS Review of systems was negative, except as documented in HPI PHYSICAL EXAM VITALS: Wt Readings from Last 3 Encounters: 09/03/23 195 lb (88.5 kg) 01/07/23 192 lb (87.1 kg) 07/09/22 194 lb (88 kg) Temp Readings from Last 3 Encounters: 09/03/23 97.2 ??F (36.2 ??C) (Temporal) 01/07/23 97.3 ??F (36.3 ??C) (Temporal) 07/09/22 97.4 ??F (36.3 ??C) (Temporal) BP Readings from Last 3 Encounters: 09/03/23 124/80 01/07/23 112/70 07/09/22 136/68 Pulse Readings from Last 3 Encounters: 09/03/23 82 01/07/23 76 07/09/22 90 Physical Exam Vitals and nursing note reviewed. Constitutional: Appearance: Normal appearance. HENT: Head: Normocephalic. Right Ear: Tympanic membrane, ear canal and external ear normal. Left Ear: Tympanic membrane and external ear normal. Ears: Comments: Small scratch in the left ear canal present. Left ear canal is mildly inflamed. Eyes: Extraocular Movements: Extraocular movements intact. Conjunctiva/sclera: Conjunctivae normal. Pupils: Pupils are equal, round, and reactive to light. Cardiovascular: Rate and Rhythm: Normal rate and regular rhythm. Pulses: Normal pulses. Heart sounds: Normal heart sounds. Pulmonary: Effort: Pulmonary effort is normal. Breath sounds: Normal breath sounds. Musculoskeletal: General: Normal range of motion. Cervical back: Normal range of motion and neck supple. Skin: General: Skin is warm and dry. Neurological: General: No focal deficit present. Mental Status: She is alert and oriented to person, place, and time. Psychiatric: Mood and Affect: Mood normal. Behavior: Behavior normal. Past medical, surgical, social and family history has been reviewed and updated as necessary. Medications and allergies has been reviewed and updated. Allergies Allergen Reactions Amitriptyline Rash Codeine Other (see Comments) K-Y Jelly [Surgical Lubricant] Rash Patient call in after exam and states this made her vagina irritated Penicillins Rash Rosuvastatin Other (see Comments) Wound Dressing Adhesive Rash Cephalexin Unknown Ezetimibe-Simvastatin Unknown Hydrocodone-Acetaminophen Unknown Medroxyprogesterone Other (see Comments) and Unknown Sulfa Antibiotics Rash Zinc Citrate-Phytase Unknown Fluorescein-Proparacaine Unknown Current Outpatient Medications: acyclovir (ZOVIRAX) 400 MG Tablet albuterol 108 (90 Base) MCG/ACT Aerosol Solution aspirin EC 81 MG Tablet Delayed Response azaTHIOprine (IMURAN) 50 MG Tablet azelastine (OPTIVAR) 0.05 % Solution carbidopa-levodopa (SINEMET) 25-100 MG Tablet celecoxib (CeleBREX) 200 MG Capsule gabapentin (NEURONTIN) 600 MG Tablet metoprolol tartrate (LOPRESSOR) 25 MG Tablet bmccptyv-vcslfrhyp-swdxhdcgtkrqzi (CORTISPORIN) 3.5-53901-6 Solution olopatadine (PATANOL) 0.1 % Solution omeprazole (PriLOSEC) 20 MG CAPSULE DELAYED RELEASE ondansetron (ZOFRAN) 4 MG Tablet predniSONE (DELTASONE) 5 MG Tablet traMADol (ULTRAM) 50 MG Tablet I educated Lexi regarding diagnoses and plan of care. She verbalizes understanding and will call the office if situation changes. Voice recognition software was utilized in this dictation. Despite proof reading, typographical errors and/or content errors may have occurred. By: Tim Altman MD 09/03/2023 10:19 AM CDT documented in this encounter Plan of Treatment Upcoming Encounters Date Type Department Care Team (Late st Contact Info) Description 06/30/2024 10:00 AM PIZZA MAKER [facility] [address] [place] [address] Raul Young MD [address] [place] [address] Brandi Coffey, PT [place] Discharge Disposition: Discharged to home or Selfcare 08/31/2024 9:30 AM CDT Office Visit [facility] - Internal Medicine - [place] [address] [place] [address] Tim Altman MD [address] [place] [address] documented as of this encounter Visit Diagnoses Diagnosis Essential hypertension, benign- Primary Other hyperlipidemia GERD without esophagitis Esophageal reflux Restless leg syndrome Restless legs syndrome (RLS) Reflex sympathetic dystrophy of left lower extremity Reflex sympathetic dystrophy of the lower limb documented in this encounter Additional Health Concerns Assessment Noted Time PHQ-9 Depression Total Score: 0 09/03/19 24 9:32 AM CDT documented as of this encounter Care Teams Health And Fitness Professor Relationship Specialty Start Date End Date Tim Altman MD [address] [place] [address] PCP - General Internal Medicine 12/03/15 documented as of this encounter
--- OUTSIDE RECORDS SUMMARY | 2024-06-17 14:47 | XMS_ITS | Encounter Summary ---
Author Organization [facility] Address [address] [place] [address] Phone Care Team Providers Care Supervisor Travel Trailer Name Role Phone Tim Altman MD Primary Care Provider Encounter Details Date Type Department Care Team (Late st Contact Info) Description 06/02/2024 Documentation Only [facility] - Internal Medicine - [place] [address] [place] [address] Tim Altman MD [address] [place] [address] Social History Tobacco Use Types Packs/Day Years Used Date Smoking Tobacco: Former Cigarettes Q uit: 07/23/1969 Passive Smoke Exposure: Past Smokeless Tobacco: Never Alcohol Use Standard Drinks/Week Comments Not Currently 0 (1 standard drink = 0.6 oz pur e alcohol) [facility] Utilities Answer Date Recorded In the past 12 months has [employer], gas, oil, or water company threatened to [...] often do you attend chur ch or rastafari services? Never 09/03/2023 Do you belong to any clubs o r organizations such as confucianism groups, unions, fraternal or athletic groups, or [...] Total Score - Questions 1-9 0 08/14 [facility] - [...] place to sleep or slept in a senior living (including now)? No 09/03/2023 Sexually Active Control Partners Comments Not Currently Comments No Sex and Gender Information Value Date Recorded Sex Assigned at Not on file Legal Sex Female 7:42 PM CDT Gender Identity Not on file Sexual Orientation Not on file documented as of this encounter Progress Notes * Rosemary Mahajan - 06/02/2024 10:51 AM CST Received completed medical clearance form from provider, faxed to [phone] with a successful confirmation at 10:01:09. Scanned to [facility] for input to chart. NT SERVICE EXECUTIVE documented in this encounter Plan of Treatment Upcoming Encounters Date Type Department Care Team (Late st Contact Info) Description 06/30/2024 10:00 AM CLIENT SERVICE EXECUTIVE Physical Therapy [facility] Rehab at [facility] [address] [place] [address] Raul Young MD [address] [place] [address] Brandi Coffey, PT [place] Discharge Disposition: Discharged to home or Selfcare 08/31/2024 9:30 AM CDT Office Visit [facility] - Internal Medicine - [place] [address] [place] [address] Tim Altman MD [address] [place] [address] documented as of this encounter Visit Diagnoses Not on filedocumented in this encounter Additional Health Concerns Assessment Noted Time PHQ-9 Depression Total Score: 0 09/03/19 24 9:32 AM CDT documented as of this encounter Care Teams Supervisor Travel Trailer Relationship Specialty Start Date End Date Tim Altman MD [address] [place] [address] PCP - General Internal Medicine 12/03/15 documented as of this encounter
--- OUTSIDE RECORDS SUMMARY | 2024-06-17 14:47 | XMS_ITS | Encounter Summary ---
Author Organization [facility] Address [address] [place] [address] Phone Care Team Providers Care Med Surg Nurse Name Role Phone Tim Altman MD Primary Care Provider [phone] Reason for Visit * Reason Onset Date Comments Medication Management 04/07/2023 Encounter Details Date Type Department Care Team (Late st Contact Info) Description 04/07/2023 Telephone [facility] - Internal Medicine - [place] [address] [place] [address] Tim Altman MD [address] [address] Medication Management Social History Tobacco Use Types Packs/Day Years [...] Telephone Encounter - Courtney Guzman RN - 04/21/2023 10:40 AM CST Pt aware 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 documented in this encounter Plan of Treatment Upcoming Encounters Date Type Department Care Team (Late st Contact Info) Description 06/30/2024 10:00 AM MOTOR COACH DRIVER [facility] [address] [place] [address] Raul Young MD [address] [place] [address] Brandi Coffey, PT [place] Discharge Disposition: Discharged to home or Selfcare 08/31/2024 9:30 AM CDT Office Visit [facility] - Internal Medicine - [place] [address] [place] [id number] Tim Altman MD [address] [place] [address] documented as of this encounter Visit Diagnoses Not on filedocumented in this encounter Additional Health Concerns Assessment Noted Time PHQ-9 Depression Total Score: 0 06/18/19 21 3:00 PM MOTOR COACH DRIVER documented as of this encounter Care Teams Med Surg Nurse Relationship Specialty Start Date End Date Tim Altman MD [address] [place] [address] PCP - General Internal Medicine 12/03/15 documented as of this encounter
--- OUTSIDE RECORDS SUMMARY | 2024-06-17 14:47 | XMS_ITS | Encounter Summary ---
Author Organization [facility] Address [address] [place] [address] Phone Care Team Providers Care Evaporator Helper Name Role Phone Tim Altman MD Primary Care Provider Sanaz Mendoza RN Unavailable Unavailable Reason for Visit * Reason Comments Hypertension Fell in December no brok en bones compound sprain in ankle and was bruised all ove Encounter Details Date Type Department Care Team (Late st Contact Info) Description 03/09/2024 9:30 AM CDT [facility] Visit [facility] - Internal Medicine - Sunday [address] [place] [address] Tim Altman MD [address] [place] [address] Essential hypertension, benign (Primary Dx); Other hyperlipidemia; GERD without esophagitis; Restless leg syndrome; Reflex sympathetic dystrophy of left lower extremity; Other specified rheumatoid arthritis, multiple sites (HCC) Discharge Disposition: Discharged to home or Selfcare Social History Tobacco Use Types Packs/Day Years Used Date Smoking Tobacco: Former Cigarettes Q uit: 07/23/1969 Passive Smoke Exposure: Past Smokeless Tobacco: Never Tobacco Cessation:Counseling Given: Not Answered Alcohol Use Standard Drinks/Week Comments Not Currently 0 (1 standard drink = 0.6 oz pur e alcohol) [facility] Utilities Answer Date Recorded In the past 12 months has [employer], [employer], or [employer] threatened to shut off services in your [...] often do you attend chur ch or yarsani services? Never 09/03/2023 Do you belong to any clubs o r organizations such as zoroastrian groups, unions, fraternal or athletic groups, or [...] 0 08/14 [facility] Answer Date [...] Sign Reading Time Taken Comments Blood Pressure 118/74 03/09/2024 9:32 AM CDT Pulse 84 03/09/2024 9:32 AM CDT Temperature 36.3 ??C (97.3 ??F) 03/09/2024 9:32 AM CD T Respiratory Rate 12 03/09/2024 9:32 AM CDT Oxygen Saturation 98% 03/09/2024 9:32 AM CDT Inhaled Oxygen Concentration - - Weight 88.2 kg (194 lb 8 oz) 03/09/2024 9:32 AM CDT Height 162.6 cm (5' 4 ) 03/09/2024 9:32 AM CDT Body Mass Index 33.39 03/09/2024 9:32 AM CDT documented in this encounter Progress Notes * Ronal, September - 03/09/2024 9:30 AM CDT Lexi Jose Ramon Mcneil, 68 y.o., female is here for Hypertension (Fell in December no broken bones compound sprain in ankle and was bruised all ove) Medication Refills: Patient reports/denies need for medication [...] Take 81 mg by mouth daily. Yes Steffen Ballesteros MD azaTHIOprine (IMURAN) 50 MG Tablet 01/01/22 Yes ProviderSteffen MD azelastine (OPTIVAR) 0.05 % Solution Place 1 Drop in both eyes 2 times daily. Use in affected eye(s) 01/08/23 Yes Tim Altman MD carbidopa-levodopa (SINEMET) 25-100 MG Tablet 05/29/23 Yes ProviderSteffen MD celecoxib (CeleBREX) 200 MG Capsule 04/06/20 Yes ProviderSteffen MD gabapentin (NEURONTIN) 600 MG Tablet 04/06/20 Yes ProviderSteffen MD metoprolol tartrate (LOPRESSOR) 25 MG Tablet TAKE 1 TABLET BY MOUTH TWO (2) TIMES DAILY. 12/29/23 Yes Sangita Best PAC olopatadine (PATANOL) 0.1 % Solution Place 1 Drop in affected eye(s) 2 times daily as needed for Allergies. 01/07/23 Yes Tim Altman MD omeprazole (PriLOSEC) 20 MG CAPSULE DELAYED RELEASE Take 1 Capsule by mouth daily. 09/03/23 Yes Tim Altman MD ondansetron (ZOFRAN) 4 MG Tablet Take 4 mg by mouth. Yes Steffen Ballesteros MD predniSONE (DELTASONE) 5 MG Tablet Take 5 mg by mouth daily. 07/16/23 Yes Steffen Ballesteros MD traMADol (ULTRAM) 50 MG Tablet 04/16/20 Yes Steffen Ballesteros MD There are no discontinued medications. I have reviewed the home medication list with the patient and spouse and have reconciled discrepancies. The list is accurate to the best of my knowledge. Smoking Status: Social History Tobacco Use Smoking status: Former Current packs/day: 0.00 Types: Cigarettes Quit date: 07/23/1969 Years since quittin.6 Passive exposure: Past Smokeless tobacco: Never Vaping Use Vaping status: Never Used Substance Use Topics Alcohol use: Not Currently Drug use: Never Smoking Cessation Counseling Given: no Health Care Maintenance: Health Maintenance Due Topic Date Due Hepatitis C Virus (HCV) Screening Never done TdaP Immunization Never done SARS-COV-2 Immunization (1) Never done Respiratory Syncytial Virus (RSV) Immunization (Adult) (1 - Risk 60-74 years 1- dose series) Never done DEXA Bone Density 12/18/2022 Colorectal Cancer Screening 05/20/2024 Orders Pended: no The following BPA's have been addressed with the patient today: BMI and Advanced Care Planning * Ronal September - 03/09/2024 9:30 AM CDT Lexi screened for Social Determinants of Health and screened positive for Physical Activity and Tobacco Use. Patient declined resources. * Tim Altman MD - 03/09/2024 9:30 AM CDT PROGRESS NOTE [facility] - INTERNAL MEDICINE [address] [place] [address] PHONE: [phone] FAX: [phone] 03/09/2024 NAME: Lexi Mcneil, : 1955, Assessment ASSESSMENT & PLAN: Return in about 6 months (around 09/06/2024) for htn. Diagnoses and all orders for this visit: Essential hypertension, benign Comments: Controlled. Continue current medication. Other hyperlipidemia Comments: Continue low-cholesterol diet. GERD without esophagitis Comments: Symptoms controlled. Continue current medication. Restless leg syndrome Comments: Stable. Continue current medications. Reflex sympathetic dystrophy of left lower extremity Comments: Stable. Continue current medications. Other specified rheumatoid arthritis, multiple sites (HCC) Comments: Continue follow-up with stock lifter. Lab results from 12/31/2023 reviewed and discussed with patient. Follow-up in 3 months, sooner if needed. Chief Complaint Patient presents with Hypertension Fell in December no broken bones compound sprain in ankle and was bruised all ove Hypertension Patient is here for follow-up for hypertension other medical problems. Overall feeling well. Recently had a fall and sustained left ankle sprain. Being followed by artificial plastic eye maker. Tolerating medications well. ROS Review of systems was negative, except as documented in HPI PHYSICAL EXAM VITALS: Wt Readings from Last 3 Encounters: 03/09/24 194 lb 8 oz (88.2 kg) 09/03/23 195 lb (88.5 kg) 01/07/23 192 lb (87.1 kg) Temp Readings from Last 3 Encounters: 03/09/24 97.3 ??F (36.3 ??C) (Temporal) 09/03/23 97.2 ??F (36.2 ??C) (Temporal) 01/07/23 97.3 ??F (36.3 ??C) (Temporal) BP Readings from Last 3 Encounters: 03/09/24 118/74 09/03/23 124/80 01/07/23 112/70 Pulse Readings from Last 3 Encounters: 03/09/24 84 09/03/23 82 01/07/23 76 Physical Exam Vitals and nursing note reviewed. Constitutional: Appearance: Normal appearance. HENT: Head: Normocephalic. Eyes: Extraocular Movements: Extraocular movements intact. Conjunctiva/sclera: Conjunctivae normal. Pupils: Pupils are equal, round, and reactive to light. Cardiovascular: Rate and Rhythm: Normal rate and regular rhythm. Pulses: Normal pulses. Heart sounds: Normal heart sounds. Pulmonary: Effort: Pulmonary effort is normal. Breath sounds: Normal breath sounds. Abdominal: General: Abdomen is flat. Bowel sounds are normal. Palpations: Abdomen is soft. Musculoskeletal: Cervical back: Normal range of motion and neck supple. Comments: Left foot AFO in place. Skin: General: Skin is warm and dry. Neurological: Mental Status: She is alert and oriented to person, place, and time. Psychiatric: Mood and Affect: Mood normal. Behavior: Behavior normal. Past medical, surgical, social and family history has been reviewed and updated as necessary. Medications and allergies has been reviewed and updated. Allergies Allergen Reactions Amitriptyline Rash Codeine Other (see Comments) Chikis Valles [Surgical Lubricant] Rash Patient call in after [...] Tablet metoprolol tartrate (LOPRESSOR) 25 MG Tablet olopatadine (PATANOL) 0.1 % Solution omeprazole (PriLOSEC) [...] may have occurred. By: Tim Altman MD 03/09/2024 10:13 AM CDT documented in this encounter Plan of Treatment Upcoming Encounters Date Type Department Care Team (Late st Contact Info) Description 06/30/2024 10:00 AM BACK SEAM STITCHER [facility] [address] [place] [id number] Raul Young MD [address] [place] [address] Brandi Coffey, PT [place] Discharge Disposition: Discharged to home or Selfcare 08/31/2024 9:30 AM CDT Office Visit [facility] - Internal Medicine - [place] [address] Tim Altman MD [address] [place] [address] documented as of this encounter Visit Diagnoses Diagnosis Essential hypertension, benign- Primary Other hyperlipidemia GERD without esophagitis Esophageal reflux Restless leg syndrome Restless legs syndrome (RLS) Reflex sympathetic dystrophy of left lower extremity Reflex sympathetic dystrophy of the lower limb Other specified rheumatoid arthritis, multiple sites (HCC) documented in this encounter Additional Health Concerns Assessment Noted Time PHQ-9 Depression Total Score: 0 09/03/19 24 9:32 AM CDT documented as of this encounter Care Teams Evaporator Helper Relationship Specialty Start Date End Date Tim Altman MD [address] [place] [address] PCP - General Internal Medicine 12/03/15 Sanaz Mendoza RN [place] Nurse Licensed Occupational Therapist 03/09/24 03/09/24 documented as of this encounter
--- OUTSIDE RECORDS SUMMARY | 2024-06-17 14:47 | XMS_ITS | Encounter Summary ---
Author Organization [facility] Address [address] [place] [address] Phone Care Team Providers Care Works Manager Name Role Phone Tim Altman MD Primary Care Provider [phone] Encounter Details Date Type Department Care Team (Late st Contact Info) Description 05/10/2024 8:10 AM CHUCKER Lab [facility] - Internal Medicine - [place] [address] [place] [address] [facility] Pre-op evaluation; Hyperglycemia; Arthralgia, unspecified joint Discharge Disposition: Discharged to home or Selfcare Social History Tobacco Use Types Packs/Day Years Used Date Smoking Tobacco: Former Cigarettes Q uit: 07/23/1969 Passive Smoke Exposure: Past Smokeless Tobacco: Never Alcohol Use Standard Drinks/Week Comments Not Currently 0 (1 standard drink = 0.6 oz pur e alcohol) [facility] Utilities Answer Date Recorded In the past 12 months has [employer], gas, oil, or water [employer] threatened to shut off services in your [...] week 09/03/2023 How often do you attend [facility] or rastafarian services? Never 09/03/2023 Do you belong to any clubs o r organizations such as judaism groups, unions, fraternal or athletic groups, or [...] Total Score - Questions 1-9 0 08/14 [facility] - Occupational Stress Questionnaire Answer Date [...] place to sleep or slept in a alf (including now)? No 09/03/2023 Sexually Active Control Partners Comments Not Currently Comments No Sex and Gender Information Value Date Recorded Sex Assigned at Not on file Legal Sex Female 7:42 PM CDT Gender Identity Not on file Sexual Orientation Not on file documented as of this encounter Progress Notes * Courtney Guzman RN - 05/10/2024 8:10 AM CST Lexi is here for labs per order of . Verbal consent was obtained. Lexi tolerated the labswell without incident. Drawn from left wrist KER documented in this encounter Plan of Treatment Upcoming Encounters Date Type Department Care Team (Late st Contact Info) Description 06/30/2024 10:00 AM CHUCKER Physical [facility] [address] [place] [address] Raul Young MD [address] [facility] [address] [place] [address] Brandi Coffey, PT [place] Discharge Disposition: Discharged to home or Selfcare 08/31/2024 9:30 AM CDT Office Visit [facility] - Internal Medicine - Sunday [address] [place] [id number] Tim Altman MD [address] [place] [address] documented as of this encounter Procedures Procedure Name Priority Date/Time Associated Diagnosis Comments HEMOGLOBIN A1C W/ ESTIMATED GLUCOSE Routine 05/10/2024 8:19 AM CHUCKER Hyperglycemia CBC WITH AUTO DIFFERENTIAL Routine 05/10/2024 8:19 AM CHUCKER Pre-op evaluation CMP (COMPREHENSIVE METABOLIC PANEL) Routine 05/10/2024 8:19 AM CHUCKER Pre-op evaluation COMPLETE BLOOD COUNT (CBC) WITH DIFF Routine 05/10/2024 8:19 AM CHUCKER Pre-op evaluation documented in this encounter Results * (ABNORMAL) CBC WITH AUTO DIFFERENTIAL (05/10/2024 8:19 AM CHUCKER) Pathologist [facility] WBC 4.61 4.00 - 12.00 10(3)/mcL 05/10/2024 5:53 PM CHUCKER [facility] RBC 4.16 3.80 - 5.30 10(6)/mcL 05/10/2024 5:53 PM CHUCKER [facility] HEMOGLOBIN (HGB) 14.1 12.0 - 15.8 g/dL 05/10/2024 5:53 PM CHUCKER [facility] HEMATOCRIT (HCT) 42.1 36.0 - 47.0 % 05/10/2024 5:53 PM CHUCKER [facility] MCV 101.2(H) 82.0 - 96.0 fL 05/10/2024 5:53 PM CHUCKER [facility] MCH 33.9 26.0 - 34.0 pg 05/10/2024 5:53 PM CHUCKER [facility] MCHC 33.5 31.0 - 36.0 g/dL 05/10/2024 5:53 PM CHUCKER [facility] PLATELET COUNT 175 140 - 440 10(3)/mcL 05/10/2024 5:53 PM CHUCKER [facility] RDW 14.2 11.8 - 15.5 % 05/10/2024 5:53 PM [facility] MPV 10.9 9.7 - 12.4 fL 05/10/2024 5:53 PM [facility] NEUTROPHILS 49.6 47.0 - 73.0 % 05/10/2024 5:53 PM CHUCKER [facility] LYMPHOCYTES 42.7(H) 18.0 - 42.0 % 05/10/2024 5:53 PM CHUCKER [facility] MONOCYTES 6.3 4.0 - 12.0 % 05/10/2024 5:53 PM CHUCKER [facility] EOSINOPHILS 0.7 0.0 - 5.0 % 05/10/2024 5:53 PM CHUCKER [facility] BASOPHILS 0.7 0.0 - 1.0 % 05/10/2024 5:53 PM CHUCKER [facility] ABSOLUTE NEUTROPHILS 2.29 1.60 - 7.70 10(3)/[facility] 05/10/2024 5:53 PM [facility] ABSOLUTE LYMPHOCYTES 1.97 1.30 - 3.20 10(3)/[facility] 05/10/2024 5:53 PM [facility] ABSOLUTE MONOCYTES 0.29 0.20 - 1.00 10(3)/[facility] 05/10/2024 5:53 PM CHUCKER [facility] ABSOLUTE EOSINOPHIL 0.03 0.00 - 0.40 10(3)/[facility] 05/10/2024 5:53 PM CHUCKER [facility] ABSOLUTE BASOPHILS 0.03 0.00 - 0.10 10(3)/[facility] 05/10/2024 5:53 PM [facility] NRBC PER 100 WBC 0 05/10/20 5:53 PM [facility] Blood Venipuncture / Unknown 05/10/2024 8:19 AM CHUCKER 05/10/2024 8:19 AM CHUCKER us Tim Altman MD HEMATOLOGY ORDERABLES Final Result [facility] [address] [place] [address] * HEMOGLOBIN A1C W/ ESTIMATED GLUCOSE (05/10/2024 8:19 AM CHUCKER) Pathologist [facility] HGB-A1C 5.6 4.0 - 6.0 % 05/10/2024 3:37 PM CHUCKER [facility] Est Average Glucose 114.0 mg/dL 05/10/2024 3:37 PM [facility] Blood Venipuncture / Unknown 05/10/2024 8:19 AM CHUCKER 05/10/2024 8:19 AM CHUCKER Narrative [facility] - 05/10/2024 3:37 PM CHUCKER HEMOGLOBIN A1C: DIABETIC PATIENTS: WELL-CONTROLLED: ?? 6.2 - 7.0 INTERMEDIATE WELL-CONTROLLED: ??7.0 - 9.0 POORLY-CONTROLLED: ??>9.0 us Tim Altman MD CHEMISTRY ORDERABLES Final Result [facility] [address] [place] [address] * (ABNORMAL) CMP (COMPREHENSIVE METABOLIC PANEL) (05/10/2024 8:19 AM CHUCKER) Pathologist [facility] SODIUM 139 136 - 145 mmol/L 05/10/2024 3:44 PM [facility] POTASSIUM 4.5 3.5 - 5.1 mmol/L 05/10/2024 3:44 PM [facility] CHLORIDE 104 98 - 107 mmol/L 05/10/2024 3:44 PM [facility] CO2, VENOUS 22 22 - 30 mmol/L 05/10/2024 3:44 PM [facility] ANION GAP 17.5 <18.0 mmol/L 05/10/2024 3:44 PM [facility] GLUCOSE 95 70 - 99 mg/dL 05/10/2024 3:44 PM [facility] BUN 17 10 - 20 mg/dL 05/10/2024 3:44 PM [facility] CREATININE, BLOOD 0.83 0.60 - 1.00 mg/dL 05/10/2024 3:44 PM [facility] BUN/CREATININE RATIO 20 12 - 20 ratio 05/10/2024 3:44 PM [facility] TOTAL PROTEIN 7.4 6.3 - 8.2 g/dL 05/10/2024 3:44 PM [facility] ALBUMIN 4.3 3.5 - 5.0 g/dL 05/10/2024 3:44 PM [facility] A/G RATIO 1.4 1.0 - 2.2 05/10/2024 3:44 PM [facility] CALCIUM 10.0 8.7 - 10.5 mg/dL 05/10/2024 3:44 PM [facility] T BILI 0.6 0.2 - 1.2 mg/dL 05/10/2024 3:44 PM [facility] SGOT (AST) 35(H) 5 - 34 U/L 05/10/2024 3:44 PM [facility] SGPT (ALT) 6 0 - 55 U/L 05/10/2024 3:44 PM [facility] ALKALINE PHOSPHATASE 53 40 - 150 U/L 05/10/2024 3:44 PM [facility] IS THE PATIENT REQUIRED TO BE FASTING? No 05/10/2024 3:44 PM [facility] HAS THE PATIENT BEEN FASTING? Yes 05/10/2024 3:44 PM [facility] GFR, ESTIMATED >60 >=60 05/10/2024 3:44 PM [facility] Comment: Creatinine Clearance is the preferred criteria for selecting drug dose adjustments in renally impaired patients. ??The GFR is provided as additional pertinent clinical information. GFR is reported in mL/min/1.73 sq m. Calculation based on the Chronic Kidney Disease Epidemiology Collaboration (CKD- EPI) equation refit without adjustment for race. GFR, EST. >60 >=60 024 3:44 PM [facility] GFR, EST. NONAFRICAN >60 >=60 05/10/2024 3:44 PM [facility] Blood Venipuncture / Unknown 05/10/2024 8:19 AM CHUCKER 05/10/2024 8:19 AM CHUCKER us Tim Altman MD CHEMISTRY ORDERABLES Final Result [facility] [address] [place] [address] documented in this encounter Visit Diagnoses Diagnosis Pre-op evaluation Preoperative examination, unspecified Hyperglycemia Other abnormal glucose Arthralgia, unspecified joint documented in this encounter Additional Health Concerns Assessment Noted Time PHQ-9 Depression Total Score: 0 09/03/19 24 9:32 AM CDT documented as of this encounter Care Teams Works Manager Relationship Specialty Start Date End Date Tim Altman MD [address] [place] [address] PCP - General Internal Medicine 12/03/15 documented as of this encounter
--- OUTSIDE RECORDS SUMMARY | 2024-06-17 14:47 | XMS_ITS | Encounter Summary ---
Author Organization [facility] Address [address] [place] [address] Phone Care Team Providers Care Polisher Hand Name Role Phone Tim Altman MD Primary Care Provider Reason for Visit * Reason Comments Surgery Medical clearance Encounter Details Date Type Department Care Team (Late st Contact Info) Description 06/02/2024 9:30 AM VAULT KEEPER Office Visit [facility] - Internal Medicine - [place] [address] [place] [address] Tim Altman MD [address] [facility] [place] [address] Pre-op evaluation (Primary Dx); Primary osteoarthritis of [...] 0.6 oz pur e alcohol) [facility] Utilities Answer Date Recorded In the past 12 months has [employer], gas, oil, or water company threatened [...] often do you attend chur ch or zoroastrian services? Never 09/03/2023 Do you belong to [...] Total Score - Questions 1-9 0 08/14 [facility] of Occupat ional Health - Occupational Stress [...] Comments Blood Pressure 118/76 06/02/2024 9:20 AM VAULT KEEPER Pulse 86 06/02/2024 9:20 AM VAULT KEEPER Temperature 36.3 ??C (97.3 ??F) 06/02/2024 9:20 AM CS T Respiratory Rate - - Oxygen Saturation 99% 06/02/2024 9:20 AM VAULT KEEPER Inhaled Oxygen Concentration - - Weight 88 kg (194 lb) 06/02/2024 9:20 AM VAULT KEEPER Height 162.6 cm (5' 4 ) 06/02/2024 9:20 AM VAULT KEEPER Body Mass Index 33.3 06/02/2024 9:20 AM VAULT KEEPER documented in this encounter Progress Notes * Doris Babb, TRISTEN - 06/02/2024 9:30 AM CST Lexi Mcneil, 68 y.o., female is here for Surgery (Medical clearance) Medication Refills: Patient reports/denies need for medication [...] azaTHIOprine (IMURAN) 50 MG Tablet 01/01/22 Yes Steffen Ballesteros MD azelastine (OPTIVAR) 0.05 % Solution Place 1 Drop in both eyes 2 times daily. Use in affected eye(s) 01/08/23 Yes Tim Altman MD carbidopa-levodopa (SINEMET) 25-100 MG Tablet 05/29/23 Yes Steffen Ballesteros MD celecoxib (CeleBREX) 200 MG Capsule 04/06/20 Yes Steffen Ballesteros MD gabapentin (NEURONTIN) 600 MG Tablet 04/06/20 Yes Steffen Ballesteros MD metoprolol tartrate (LOPRESSOR) 25 MG Tablet TAKE 1 TABLET BY MOUTH TWO (2) TIMES DAILY. 04/04/24 Yes Sangita Best PAC olopatadine (PATANOL) 0.1 % Solution Place 1 Drop in affected eye(s) 2 times daily as needed for Allergies. 01/07/23 Yes Tim Altman MD omeprazole (PriLOSEC) 20 MG CAPSULE DELAYED RELEASE TAKE 1 CAPSULE BY MOUTH DAILY. 03/09/24 Yes Tim Altman MD ondansetron (ZOFRAN) 4 MG Tablet Take 4 mg by mouth. Yes ProviderSteffen MD predniSONE (DELTASONE) 5 MG Tablet Take [...] Types: Cigarettes Quit date: 07/23/1969 Years since quittin.8 Passive exposure: Past Smokeless tobacco: Never Vaping Use Vaping status: Never Used Substance Use Topics Alcohol use: Not Currently Drug use: Never Smoking Cessation Counseling Given: no Health Care Maintenance: Health Maintenance Due Topic Date Due TdaP Immunization Never done SARS-COV-2 Immunization (1) Never done Respiratory Syncytial Virus (RSV) Immunization (Adult) (1 - Risk 60-74 years 1- dose series) Never done DEXA Bone Density 12/18/2022 Colorectal Cancer Screening 05/20/2024 Mammogram 08/28/2024 Orders Pended: no The following BPA's have been addressed with the patient today: BMI and Smoking T KEEPER * Tim Altman MD - 06/02/2024 9:30 AM CST PROGRESS NOTE [facility] - INTERNAL MEDICINE [address] [place] [address] PHONE: [phone] FAX: [phone] 06/02/2024 NAME: Lexi Mcneil, : 1955, Assessment ASSESSMENT & PLAN: Return for august appt. Diagnoses and all orders for this visit: Pre-op evaluation Comments: Patient is medically optimized for left knee arthroplasty. Primary osteoarthritis of left knee Essential hypertension, benign Comments: Controlled. Continue current medications. Other specified rheumatoid arthritis, multiple sites (HCC) Comments: Continue follow-up with wax pot tender. Preop lab results from 05/10/2024 reviewed. EKG-normal sinus rhythm. No acute change. Patient is medically optimized for left knee total knee arthroplasty. Form completed. Chief Complaint Patient presents with Surgery Medical clearance Surgery Patient is here for preop evaluation for left total knee arthroplasty. Patient is feeling well except generalized arthralgia and left knee pain. No chest pain or palpitation. No shortness a breath. Tolerating medications well. ROS Review of systems was negative, except as documented in HPI PHYSICAL EXAM VITALS: Wt Readings from Last 3 Encounters: 06/02/24 194 lb (88 kg) 03/09/24 194 lb 8 oz (88.2 kg) 09/03/23 195 lb (88.5 kg) Temp Readings from Last 3 Encounters: 06/02/24 97.3 ??F (36.3 ??C) (Temporal) 03/09/24 97.3 ??F (36.3 ??C) (Temporal) 09/03/23 97.2 ??F (36.2 ??C) (Temporal) BP Readings from Last 3 Encounters: 06/02/24 118/76 03/09/24 118/74 09/03/23 124/80 Pulse Readings from Last 3 Encounters: 06/02/24 86 03/09/24 84 09/03/23 82 Physical Exam Vitals and nursing note reviewed. [...] of motion and neck supple. Comments: Left ankle brace in place. Lymphadenopathy: Cervical: No cervical adenopathy. Skin: General: Skin is warm and dry. [...] may have occurred. By: Tim Altman MD 06/02/2024 10:05 AM VAULT KEEPER T KEEPER documented in this encounter Plan of Treatment Upcoming Encounters Date Type Department Care Team (Late st Contact Info) Description 06/30/2024 10:00 AM VAULT KEEPER [facility] [address] [place] [phone] Raul Young MD [address] [place] [address] Brandi Coffey, PT [place] Discharge Disposition: Discharged to home or Selfcare 08/31/2024 9:30 AM CDT Office Visit [facility] - Internal Medicine - [place] [address] [place] [address] Tim Altman MD [address] [place] [address] Scheduled Orders Name Type Priority Associated Diagnoses Orde r Schedule ELECTROCARDIOGRAM, COMPLETE ECG Today Pre-op evaluation Essential hypertension, benign Ordered: 06/02/2024 documented as of this encounter Visit Diagnoses Diagnosis Pre-op evaluation- Primary Preoperative examination, unspecified Primary osteoarthritis of left knee Primary localized osteoarthrosis, lower leg Essential hypertension, benign Other specified rheumatoid arthritis, multiple sites (HCC) documented in this encounter Additional Health Concerns Assessment Noted Time PHQ-9 Depression Total Score: 0 09/03/19 24 9:32 AM CDT documented as of this encounter Care Teams Polisher Hand Relationship Specialty Start Date End Date Tim Altman MD [address] [place] [address] PCP - General Internal Medicine 12/03/15 documented as of this encounter
--- OUTSIDE RECORDS SUMMARY | 2024-06-17 14:47 | XMS_ITS | Encounter Summary ---
Author Organization [facility] Address [address] [place] [address] Phone Care Team Providers Care Training Analyst Name Role Phone Tim Altman MD Primary Care Provider Reason for Visit * Reason Comments Medication Refill Encounter Details Date Type Department Care Team (Late st Contact Info) Description 07/10/2023 Refill [facility] - [place] [address] [place] [id number] Sangita Best, [facility] [address] [place] [address] Medication Refill Social History Tobacco [...] Telephone Encounter - Courtney Guzman RN - 07/13/2023 8:26 AM CST Medication(s) refilled and signed per [facility] Chronic Medication Refill Standing Order for Pediatricand Adult Patients. Requested Prescriptions Pending Prescriptions Disp Refills ??? metoprolol tartrate (LOPRESSOR) 25 MG Tablet [Pharmacy Med Name: METOPROLOL TARTRATE 25MG TABLET] 180 Tablet 0 Sig: TAKE 1 TABLET BY MOUTH TWO (2) TIMES DAILY. Beta-Blockers Protocol Passed - 07/10/2023 5:29 PM Passed - BP on record in the past year Clinician-entered: BP Readings from Last 3 Encounters: 01/07/23 112/70 07/09/22 136/68 01/14/22 (!) 178/102 Patient-entered: No data recorded Passed - Visit with relevant provider in past 12 months or upcoming 90 days Recent Visits Date Type Provider Dept 01/07/23 Office Visit Tim Altman MD [facility] [place] Showing recent visits within past 365 days and meeting all other requirements Future Appointments No visits were found meeting these conditions. Showing future appointments within next 90 days and meeting all other requirements S INSPECTOR documented in this encounter Plan of Treatment Upcoming Encounters Date Type Department Care Team (Late st Contact Info) Description 06/30/2024 10:00 AM MINES INSPECTOR Physical Therapy [facility] Rehab at [facility] [address] [place] [phone] Raul Young MD [address] [place] [address] Brandi Coffey, PT [place] Discharge Disposition: Discharged to home or Selfcare 08/31/2024 9:30 AM CDT Office Visit [facility] Group - Internal Medicine - [place] [address] [place] [address] Tim Altman MD [address] [place] [address] documented as of this encounter Visit Diagnoses Not on filedocumented in this encounter Additional Health Concerns Assessment Noted Time PHQ-9 Depression Total Score: 0 06/18/19 21 3:00 PM MINES INSPECTOR documented as of this encounter Care Teams Training Analyst Relationship Specialty Start Date End Date Tim Altman MD [address] [place] [address] PCP - General Internal Medicine 12/03/15 documented as of this encounter
--- OUTSIDE RECORDS SUMMARY | 2024-06-17 14:47 | XMS_ITS | Encounter Summary ---
Author Organization [employer] Care Team Providers Care Log Turner Name Role Phone Tim Altman MD Primary Care Provider [phone] Sanaz Mendoza RN Unavailable Unavailable Encounter Details Date Type Department Care Team (Latest Contact Info) Description 03/09/2024 Travel Social History Tobacco Use Types Packs/Day Years Used Date Smoking Tobacco: Former Cigarettes Q uit: 07/23/1969 Passive Smoke Exposure: Past Smokeless Tobacco: Never Alcohol Use Standard Drinks/Week Comments Not Currently 0 (1 standard drink = 0.6 oz pur e alcohol) [facility] Utilities Answer Date Recorded In the past 12 months has [employer], gas, oil, or water [employer] threatened to shut off services in your [...] often do you attend chur ch or mu-ism services? Never 09/03/2023 Do you belong to any clubs o r organizations such as alevism groups, unions, fraternal or athletic groups, or [...] Total Score - Questions 1-9 0 08/14 [facility] of Occupat ional Health - Occupational Stress [...] st Contact Info) Description 06/30/2024 10:00 AM OFFICE ANALYST Physical Therapy [facility] Rehab at [facility] [address] [place] [address] Raul Young MD [address] [place] [address] Brandi Coffey, PT [place] Discharge Disposition: Discharged to home or Selfcare 08/31/2024 9:30 AM CDT Office Visit [facility] [address] [place] [phone] Tim Altman MD [address] [place] [address] documented as of this encounter Visit Diagnoses Not on filedocumented in this encounter Additional Health Concerns Assessment Noted Time PHQ-9 Depression Total Score: 0 09/03/19 24 9:32 AM CDT documented as of this encounter Care Teams Log Turner Relationship Specialty Start Date End Date Tim Altman MD [address] [place] [address] PCP - General Internal Medicine 12/03/15 Sanaz Mendoza, RN [place] Nurse Senior Boiler Operator 03/09/24 03/09/24 documented as of this encounter
--- OUTSIDE RECORDS SUMMARY | 2024-06-17 14:47 | XMS_ITS | Encounter Summary ---
Author Organization [facility] Address [address] [place] [address] Phone Care Team Providers Care Publication Director Name Role Phone Tim Altman MD Primary Care Provider Encounter Details Date Type Department Care Team (Late st Contact Info) Description 04/21/2024 Telephone [facility] - [facility] - [place] [address] [place] [address] Tim Altman MD [address] [place] [address] Social History Tobacco Use Types Packs/Day Years Used Date Smoking Tobacco: Former Cigarettes Q uit: 07/23/1969 Passive Smoke Exposure: Past Smokeless Tobacco: Never Alcohol Use Standard Drinks/Week Comments Not Currently 0 (1 standard drink = 0.6 oz pur e alcohol) [facility] Utilities Answer Date Recorded In the past 12 months has [employer], gas, oil, or water [employer] threatened to shut off services in your [...] often do you attend chur ch or quaker services? Never 09/03/2023 Do you belong to any clubs o r organizations such as presybeterian groups, unions, fraternal or athletic groups, or [...] Score - Questions 1-9 0 08/14 [facility] of Occupat ional [facility] - Occupational Stress Questionnaire Answer Date [...] Telephone Encounter - Tim Altman MD - 04/21/2024 4:07 PM DIRECTOR OF MARKET RESEARCH Pre-op labs ordered per ortho surgeon req CTOR OF MARKET RESEARCH documented in this encounter Plan of Treatment Upcoming Encounters Date Type Department Care Team (Late st Contact Info) Description 06/30/2024 10:00 AM DIRECTOR OF MARKET RESEARCH Physical Therapy [facility] Rehab at [facility] [address] [place] [phone] Raul Young MD [address] [facility] [address] [place] [address] Brandi Coffey, PT [place] Discharge Disposition: Discharged to home or Selfcare 08/31/2024 9:30 AM CDT Office Visit [facility] - [facility] - [place] [address] [place] [place] [address] Tim Altman MD [address] [place] [address] documented as of this encounter Results * HEMOGLOBIN A1C W/ ESTIMATED GLUCOSE (05/10/2024 8:19 AM DIRECTOR OF MARKET RESEARCH) HGB-A1C 5.6 4.0 - 6.0 % 05/10/2024 3:37 PM DIRECTOR OF MARKET RESEARCH [facility] Est Average Glucose 114.0 mg/dL 05/10/2024 3:37 PM [facility] Blood Venipuncture / Unknown 05/10/2024 8:19 AM DIRECTOR OF MARKET RESEARCH 05/10/2024 8:19 AM DIRECTOR OF MARKET RESEARCH Narrative [facility] - 05/10/2024 3:37 PM DIRECTOR OF MARKET RESEARCH HEMOGLOBIN A1C: DIABETIC PATIENTS: WELL-CONTROLLED: ?? 6.2 - 7.0 INTERMEDIATE WELL-CONTROLLED: ??7.0 - 9.0 POORLY-CONTROLLED: ??>9.0 us Tim Altman MD CHEMISTRY ORDERABLES Final Result [facility] [place] [address] * (ABNORMAL) CMP (COMPREHENSIVE METABOLIC PANEL) (05/10/2024 8:19 AM DIRECTOR OF MARKET RESEARCH) [facility] SODIUM 139 136 - 145 mmol/L 05/10/2024 3:44 PM [facility] POTASSIUM 4.5 3.5 - 5.1 mmol/L 05/10/2024 3:44 PM [facility] CHLORIDE 104 98 - 107 mmol/L 05/10/2024 3:44 PM [facility] CO2, VENOUS 22 22 - 30 mmol/L 05/10/2024 3:44 PM [facility] ANION GAP 17.5 <18.0 mmol/L 05/10/2024 3:44 PM [facility] GLUCOSE 95 70 - 99 mg/dL 05/10/2024 3:44 PM [facility] BUN 17 10 - 20 mg/dL 05/10/2024 3:44 PM [facility] CREATININE, BLOOD 0.83 0.60 - 1.00 mg/dL 05/10/2024 3:44 PM [facility] BUN/CREATININE RATIO 20 12 - 20 ratio 05/10/2024 3:44 PM [facility] TOTAL PROTEIN 7.4 6.3 - 8.2 g/dL 05/10/2024 3:44 PM [facility] ALBUMIN 4.3 3.5 - 5.0 g/dL 05/10/2024 3:44 PM [facility] A/G RATIO 1.4 1.0 - 2.2 05/10/2024 3:44 PM [facility] CALCIUM 10.0 8.7 - 10.5 mg/dL 05/10/2024 3:44 PM [facility] T BILI 0.6 0.2 - 1.2 mg/dL 05/10/2024 3:44 PM [facility] SGOT (AST) 35(H) 5 - 34 U/L 05/10/2024 3:44 PM [facility] SGPT (ALT) 6 0 - 55 U/L 05/10/2024 3:44 PM [facility] ALKALINE PHOSPHATASE 53 40 - 150 U/L 05/10/2024 3:44 PM [facility] IS THE PATIENT REQUIRED TO BE FASTING? No 05/10/2024 3:44 PM [facility] HAS THE PATIENT BEEN FASTING? Yes 05/10/2024 3:44 PM [facility] GFR, ESTIMATED >60 >=60 05/10/2024 3:44 PM [facility] Comment: Creatinine Clearance is the preferred criteria for selecting drug dose adjustments in renally impaired patients. ??The GFR is provided as additional pertinent clinical information. GFR is reported in mL/min/1.73 sq m. Calculation based on the Chronic Kidney Disease Epidemiology Collaboration (CKD- EPI) equation refit without adjustment for race. GFR, EST. >60 >=60 024 3:44 PM [facility] GFR, EST. NONAFRICAN >60 >=60 05/10/2024 3:44 PM [facility] Blood Venipuncture / Unknown 05/10/2024 8:19 AM DIRECTOR OF MARKET RESEARCH 05/10/2024 8:19 AM DIRECTOR OF MARKET RESEARCH us Tim Altman MD CHEMISTRY ORDERABLES Final Result [facility] [place] [address] documented in this encounter Visit Diagnoses Diagnosis Pre-op evaluation- Primary Preoperative examination, unspecified Hyperglycemia Other abnormal glucose Arthralgia, unspecified joint documented in this encounter Additional Health Concerns Assessment Noted Time PHQ-9 Depression Total Score: 0 09/03/19 24 9:32 AM CDT documented as of this encounter Care Teams Publication Director Relationship Specialty Start Date End Date Tim Altman MD [address] [place] [address] PCP - General Internal Medicine 12/03/15 documented as of this encounter
--- OUTSIDE RECORDS SUMMARY | 2024-06-17 14:48 | XMS_ITS | Encounter Summary ---
Author Organization [facility] Address [address] [place] [address] Phone Care Team Providers Care Hydro Excavation Operator Name Role Phone Tim Altman MD Primary Care Provider Reason for Visit * Reason Comments Medication Refill Encounter Details Date Type Department Care Team (Late st Contact Info) Description 10/18/2021 Refill [facility] - [place] [address] [place] [address] Tim Altman MD [address] [place] [address] Medication Refill Social History Tobacco Use Types Packs/Day Years Used Date Smoking Tobacco: Former Cigarettes Q uit: 07/23/1969 Smokeless Tobacco: Never Alcohol Use Standard Drinks/Week [...] encounter Miscellaneous Notes * Telephone Encounter - Berenice Davis RN - 10/21/2021 6:42 AM CDT Medication(s) refilled and signed per [facility] Chronic Medication Refill Standing Order for Pediatricand Adult Patients. Requested Prescriptions Pending Prescriptions Disp Refills ??? metoprolol tartrate (LOPRESSOR) 25 MG Tablet [Pharmacy Med Name: METOPROLOL TARTRATE 25MG TABLET] 180 Tablet 0 Sig: TAKE ONE (1) TABLET BY MOUTH TWICE a DAY Beta-Blockers Protocol Passed - 10/18/2021 4:47 PM Passed - BP on record in the past year Clinician-entered: BP Readings from Last 3 Encounters: 09/09/21 (!) 150/129 06/20/21 112/66 03/12/21 134/72 Patient-entered: No data recorded Passed - Visit with relevant provider in past 12 months or upcoming 90 days Recent Visits Date Type Provider Dept 06/20/21 Office Visit [facility] [place] 03/12/21 Office Visit Tim Altman MD [facility] [place] 12/18/20 Office Visit Tim Altman MD [facility] [place] Showing recent visits within past 365 days and meeting all other requirements Future Appointments Date Type Provider Dept 12/20/21 Appointment [facility] [place] Showing future appointments within next 90 days and meeting all other requirements documented in this encounter Plan of Treatment Upcoming Encounters Date Type Department Care Team (Late st Contact Info) Description 06/30/2024 10:00 AM FARM OPERATIONS MANAGER Physical Therapy [facility] Rehab at [facility] [address] [place] [phone] Raul Young MD [address] [place] [address] Brandi Coffey, PT [place] Discharge Disposition: Discharged to home or Selfcare 08/31/2024 9:30 AM CDT Office Visit [facility] - Internal Medicine - [place] [address] [place] [address] Tim Altman MD [address] [place] [address] documented as of this encounter Visit Diagnoses Not on filedocumented in this encounter Additional Health Concerns Assessment Noted Time PHQ-9 Depression Total Score: 0 06/18/19 21 3:00 PM FARM OPERATIONS MANAGER documented as of this encounter Care Teams Hydro Excavation Operator Relationship Specialty Start Date End Date Tim Altman MD [address] [place] [address] PCP - General Internal Medicine 12/03/15 documented as of this encounter
--- OUTSIDE RECORDS SUMMARY | 2024-06-17 14:48 | XMS_ITS | Encounter Summary ---
Author Organization [facility] Address [address] [place] [address] Phone Care Team Providers Care Senior Applications Engineer Name Role Phone Tim Altman MD Primary Care Provider Reason for Visit * Reason Comments Esophageal Reflux 6 mo f/u Encounter Details Date Type Department Care Team (Late st Contact Info) Description 01/07/2023 8:45 AM CDT Office Visit [facility] - Internal Medicine - [place] [address] [place] [address] Tim Altman MD [address] [place] [address] Allergic rhinitis due to other allergic trigger, unspecified seasonality (Primary Dx); Allergic conjunctivitis of both eyes; GERD without esophagitis; Other hyperlipidemia; Restless leg syndrome; Reflex sympathetic dystrophy of [...] AM CDT documented as of this encounter Last Filed Vital Signs Vital Sign Reading Time Taken Comments Blood Pressure 112/70 01/07/2023 8:33 AM CDT Pulse 76 01/07/2023 8:33 AM CDT Temperature 36.3 ??C (97.3 ??F) 01/07/2023 8:33 AM CD T Respiratory Rate - - Oxygen Saturation 98% 01/07/2023 8:33 AM CDT Inhaled Oxygen Concentration - - Weight 87.1 kg (192 lb) 01/07/2023 8:33 AM CDT Height 157.5 cm (5' 2 ) 01/07/2023 8:33 AM CDT Body Mass Index 35.12 01/07/2023 8:33 AM CDT documented in this encounter Progress Notes * Doris Babb CMA - 01/07/2023 8:45 AM CDT Lexi screened for Social Determinants of Health and patient declined to answer the questions. * Doris Babb CMA - 01/07/2023 8:45 AM CDT Lexi Mcneil, 67 y.o., female is here for Esophageal Reflux (6 mo f/u) Medication Refills: Patient reports/denies need for medication refills. Orders Pended: no Requested Prescriptions No prescriptions requested or ordered in this encounter Home Medications Medication Sig Start Date End Date Taking? Authorizing Provider acyclovir (ZOVIRAX) 400 MG Tablet Take 1 Tab by mouth 3 times daily. 05/22/20 Tim Altman MD albuterol 108 (90 Base) MCG/ACT Aerosol Solution take 1-2 Puffs by inhalation every 4 hours as needed for Cough. 01/14/22 Yes Tim Altman MD azaTHIOprine (IMURAN) 50 MG Tablet 01/01/22 Yes ProviderSteffen MD carbidopa-levodopa CR (SINEMET CR) 50-200 MG Tablet Controlled Release 05/14/20 Yes ProviderSteffen MD celecoxib (CeleBREX) 200 MG Capsule 04/06/20 Yes ProviderSteffen MD gabapentin (NEURONTIN) 600 MG Tablet 04/06/20 Yes Provider, MD Steffen metoprolol tartrate (LOPRESSOR) 25 MG Tablet TAKE 1 TABLET BY MOUTH TWO (2) TIMES DAILY. 11/14/22 YesSangita Best PAC omeprazole (PriLOSEC) 40 MG CAPSULE DELAYED RELEASE TAKE ONE CAPSULE BY MOUTH DAILY 05/29/22 Yes Tim Altman MD ondansetron (ZOFRAN) 4 MG Tablet Take 4 mg by mouth. Yes Provider, MD Steffen traMADol (ULTRAM) 50 MG Tablet 04/16/20 Yes Provider, MD Steffen There are no discontinued medications. I have reviewed the home medication list with the patient and have reconciled discrepancies. The list is accurate to the best of my knowledge. Smoking Status: Social History Tobacco Use ??? Smoking status: Former Types: Cigarettes Quit date: 07/23/1969 Years since quittin.4 Passive exposure: Past ??? Smokeless tobacco: Never Vaping Use ??? Vaping Use: Never used Substance Use Topics ??? Alcohol use: Not Currently ??? Drug use: Never Smoking Cessation Counseling Given: no Health Care Maintenance: Health Maintenance Due Topic Date Due ??? Hepatitis C Virus (HCV) Screening Never done ??? SARS-COV-2 Immunization (1) Never done ??? DTaP/Tdap/Td Immunization (1 - Tdap) Never done ??? Pneumococcal Immunization (65+ years) (1 - PCV) Never done ??? DEXA Bone Density 12/18/2022 Orders Pended: no The following BPA's have been addressed with the patient today: Smoking * Doris Babb CMA - 01/07/2023 8:45 AM CDT Lexi presents today for immunization/injection of Prevnar 20, ordered by Dr. Tim Altman on 01/07/2023 was administered without incident. Patient tolerated it well. See immunizations/injections activity. * Tim Altman MD - 01/07/2023 8:45 AM CDT PROGRESS NOTE [facility] [address] [address] PHONE: [phone] FAX: [phone] 01/07/2023 NAME: Lexi Mcneil, : 1955, Assessment ASSESSMENT & PLAN: Return in about 6 months (around 07/10/2023) for gerd. Diagnoses and all orders for this visit: Allergic rhinitis due to other allergic trigger, unspecified seasonality Comments: Advised to try OTC fexofenadine or Zyrtec. Allergic conjunctivitis of both eyes Comments: Will try Patanol eyedrops. GERD without esophagitis Comments: Stable. Continue current medication Other hyperlipidemia Comments: Continue low-cholesterol diet. Patient is intolerant to statins and Zetia Restless leg syndrome Comments: Stable. Continue current medication Reflex sympathetic dystrophy of left lower extremity Comments: Stable. Continue current medication Other orders - olopatadine (PATANOL) 0.1 % Solution; Place 1 Drop in affected eye(s) 2 times daily as needed forAllergies. - PNEUMOCOCCAL CONJUGATE VACCINE (PCV20) IM - PCV-20 IMMUNIZATION QUESTIONS Prevnar 20 vaccine given Follow-up in 6 months, sooner if needed Chief Complaint Patient presents with ??? Esophageal Reflux 6 mo f/u HPI Patient is here for follow-up for GERD and other medical problems. Lately having itchy eyes. No relief in spite of using lubricant eyedrops. Also complains of postnasal drainage. Taking OTC loratadine without much help. No cough or shortness of breath. Leg pain remained stable. Also being followed by ortho assistant for rheumatoid arthritis. ROS Review of systems was negative, except as documented in HPI PHYSICAL EXAM VITALS: Wt Readings from Last 3 Encounters: 01/07/23 192 lb (87.1 kg) 07/09/22 194 lb (88 kg) 01/14/22 193 lb 8 oz (87.8 kg) Temp Readings from Last 3 Encounters: 01/07/23 97.3 ??F (36.3 ??C) (Temporal) 07/09/22 97.4 ??F (36.3 ??C) (Temporal) 01/14/22 98.6 ??F (37 ??C) (Temporal) BP Readings from Last 3 Encounters: 01/07/23 112/70 07/09/22 136/68 01/14/22 (!) 178/102 Pulse Readings from Last 3 Encounters: 01/07/23 76 07/09/22 90 01/14/22 90 Physical Exam Vitals and nursing note reviewed. Constitutional: Appearance: Normal appearance. HENT: Head: Normocephalic. Right Ear: Tympanic membrane and ear canal normal. Left Ear: Tympanic membrane and ear canal normal. Mouth/Throat: Mouth: Mucous membranes are moist. Pharynx: Oropharynx is clear. Eyes: Extraocular Movements: Extraocular movements intact. Conjunctiva/sclera: [...] been reviewed and updated. Allergies Allergen Reactions ??? Amitriptyline Rash ??? Codeine Other (see Comments) ??? K-Y Jelly [Surgical Lubricant] Rash Patient call in after exam and states this made her vagina irritated ??? Penicillins Rash ??? Rosuvastatin Other (see Comments) ??? Wound Dressing Adhesive Rash ??? Cephalexin Unknown ??? Ezetimibe-Simvastatin Unknown ??? Hydrocodone-Acetaminophen Unknown ??? Medroxyprogesterone Other (see Comments) and Unknown ??? Sulfa Antibiotics Rash ??? Zinc Citrate-Phytase Unknown ??? Fluorescein-Proparacaine Unknown Current Outpatient Medications: ??? acyclovir (ZOVIRAX) 400 MG Tablet ??? albuterol 108 (90 Base) MCG/ACT Aerosol Solution ??? azaTHIOprine (IMURAN) 50 MG Tablet ??? carbidopa-levodopa CR (SINEMET CR) 50-200 MG Tablet Controlled Release ??? celecoxib (CeleBREX) 200 MG Capsule ??? gabapentin (NEURONTIN) 600 MG Tablet ??? metoprolol tartrate (LOPRESSOR) 25 MG Tablet ??? olopatadine (PATANOL) 0.1 % Solution ??? omeprazole (PriLOSEC) 40 MG CAPSULE DELAYED RELEASE ??? ondansetron (ZOFRAN) 4 MG Tablet ??? traMADol (ULTRAM) 50 MG Tablet I educated Lexi regarding diagnoses and plan of care. She verbalizes understanding and will call the office if situation changes. Voice recognition software was utilized in this dictation. Despite proof reading, typographical errors and/or content errors may have occurred. By: Tim Altman MD 01/07/2023 9:13 AM CDT documented in this encounter Plan of Treatment Upcoming Encounters Date Type Department Care Team (Late st Contact Info) Description 06/30/2024 10:00 AM THERAPY TECHNICIAN Physical Therapy [facility] [address] [facility] [place] [phone] Raul Young MD [address] [place] [address] Brandi Coffey, PT [place] Discharge Disposition: Discharged to home or Selfcare 08/31/2024 9:30 AM CDT Office Visit [facility] - Internal Medicine - [place] [address] [place] [phone] Tim Altman MD [address] [place] [address] documented as of this encounter Visit Diagnoses Diagnosis Allergic rhinitis due to other allergic trigger, unspecified seasonality- Primary Allergic conjunctivitis of both eyes Other chronic allergic conjunctivitis GERD without esophagitis Esophageal reflux Other hyperlipidemia Restless leg syndrome Restless legs syndrome (RLS) Reflex sympathetic dystrophy of left lower extremity Reflex sympathetic dystrophy of the lower limb documented in this encounter Additional Health Concerns Assessment Noted Time PHQ-9 Depression Total Score: 0 06/18/19 21 3:00 PM THERAPY TECHNICIAN documented as of this encounter Care Teams Senior Applications Engineer Relationship Specialty Start Date End Date Tim Altman MD [address] [place] [address] PCP - General Internal Medicine 12/03/15 documented as of this encounter
--- OUTSIDE RECORDS SUMMARY | 2024-06-17 14:48 | XMS_ITS | Encounter Summary ---
Author Organization [facility] Address [address] [place] [address] Phone Care Team Providers Care Insurance Consultant Name Role Phone Tim Altman MD Primary Care Provider [phone] Reason for Visit * Reason Comments Medication Refill Encounter Details Date Type Department Care Team (Late st Contact Info) Description 06/16/2022 Refill [facility] - [facility] - [place] [address] [place] [address] Tim Altman MD [address] [place] [address] Medication Refill Social History Tobacco [...] Telephone Encounter - Courtney Guzman RN - 06/17/2022 8:35 AM CST Medication(s) refilled and signed per [facility] Medication Refill Standing Order for Pediatricand Adult Patients. Requested Prescriptions Pending Prescriptions Disp Refills ??? metoprolol tartrate (LOPRESSOR) 25 MG Tablet [Pharmacy Med Name: METOPROLOL TARTRATE 25MG TABLET] 180 Tablet 0 Sig: TAKE ONE (1) TABLET BY MOUTH TWICE a DAY Beta-Blockers Protocol Passed - 06/16/2022 12:08 PM Passed - BP on record in the past year Clinician-entered: BP Readings from Last 3 Encounters: 01/14/22 (!) 178/102 09/09/21 (!) 150/129 06/20/21 112/66 Patient-entered: No data recorded Passed - Visit with relevant provider in past 12 months or upcoming 90 days Recent Visits Date Type Provider Dept 01/14/22 Office Visit [facility] 12/30/21 Telemedicine Tim Altman MD [facility] 06/20/21 Office Visit Tim Altman MD [facility] Showing recent visits within past 365 days and meeting all other requirements Future Appointments Date Type Provider Dept 07/09/22 Appointment Tim Altman MD [facility] Showing future appointments within next 90 days and meeting all other requirements OLOGY AIDE documented in this encounter Plan of Treatment Upcoming Encounters Date Type Department Care Team (Late st Contact Info) Description 06/30/2024 10:00 AM HISTOLOGY AIDE Physical Therapy [facility] [address] [place] [phone] Raul Young MD [address] [place], [place] [id number] Brandi Coffey, PT [place] Discharge Disposition: Discharged to home or Selfcare 08/31/2024 9:30 AM CDT Office Visit [facility] - [facility] - [place] [address] [place] [address] Tim Altman MD [address] [place] [address] documented as of this encounter Visit Diagnoses Not on filedocumented in this encounter Additional Health Concerns Assessment Noted Time PHQ-9 Depression Total Score: 0 06/18/19 21 3:00 PM HISTOLOGY AIDE documented as of this encounter Care Teams Insurance Consultant Relationship Specialty Start Date End Date Tim Altman MD [address] [place] [address] PCP - General Internal Medicine 12/03/15 documented as of this encounter
--- OUTSIDE RECORDS SUMMARY | 2024-06-17 14:48 | XMS_ITS | Encounter Summary ---
Author Organization [facility] Address [address] [place] [address] Phone Care Team Providers Care Cdl Bulk Driver Name Role Phone Tim Altman MD Primary Care Provider Reason for Visit * Reason Comments Knee Injury Encounter Details Date Type Department Care Team (Late st Contact Info) Description 09/09/2021 9:54 AM CDT - 09/09/2021 11:52 AM CDT Emergency [facility] Emergency [address] [place] [id number] Magalys Landry, MULTIFOCAL LENS ASSEMBLER, PERSONNEL SUPERVISOR [address] [place] [address] Patellar fracture Discharge Disposition: Discharged to home or Selfcare [...] suspected to have Coronavirus/COVID-19? No / Unsure 09/09/2021 9:49 AM CDT documented as of this encounter Last Filed Vital Signs Vital Sign Reading Time Taken Comments Blood Pressure 150/129 09/09/2021 9:50 AM CDT Pulse 97 09/09/2021 9:50 AM CDT Temperature 36.3 ??C (97.3 ??F) 09/09/2021 9:50 AM CD T Respiratory Rate 20 09/09/2021 9:50 AM CDT Oxygen Saturation 98% 09/09/2021 9:50 AM CDT Inhaled Oxygen Concentration - - Weight 86.2 kg (190 lb) 09/09/2021 9:50 AM CDT Height 162.6 cm (5' 4 ) 09/09/2021 9:50 AM CDT Body Mass Index 32.61 09/09/2021 9:50 AM CDT documented in this encounter Discharge Instructions * Discharge Instructions* Magalys Landry APRN, CNP - 09/09/2021 11:36 AM CDT Please follow-up with Dr. Young on Thursday, September 11 at 0900. Appointment has already beenmade. Bear weight as tolerated. Keep knee immobilizer in place until follow-up with orthopedist. * Attachments The following attachments cannot be sent through Care Everywhere. * Patellar Fracture Adult (Italian) documented in this encounter Medications at Time of Discharge acyclovir (ZOVIRAX) 400 MG Tablet Take 1 Tab by mouth 3 times daily. 21 Tab 05/22/2020 celecoxib (CeleBREX) 200 MG Capsule 04/06/2020 gabapentin (NEURONTIN) 600 MG Tablet 04/06/2020 traMADol (ULTRAM) 50 MG Tablet 04/16/2020 carbidopa-levodo pa CR (SINEMET CR) 50-200 MG Tablet Controlled Release 05/14/2020 4 fluticasone (FLONASE) 50 MCG/ACT Suspension USE 1 SPRAY(S) EACH NOSTRIL TWO TIMES A DAY DIRECTED BY PHYSICIAN 16 g 05/06/2021 2 folic acid (FOLVITE) 1 MG Tablet 04/14/2020 2 metoprolol tartrate (LOPRESSOR) 25 MG Tablet TAKE 1 TABLET BY MOUTH TWICE A DAY 180 Tablet 07/15/2021 2 omeprazole (PriLOSEC) 40 MG CAPSULE DELAYED RELEASE TAKE ONE CAPSULE BY MOUTH DAILY 90 Capsule 1 08/05/2021 2 documented as of this encounter ED Notes * Shyla Szymanski RN - 09/09/2021 11:50 AM CDT Pt declined discharged VS as she was standing at the door ready to go. Patient discharged. Discharge instructions and patient educational material reviewed with patient; questions and concerns addressed; patient verbalizes understanding, using teach back. Patient was given 0 prescriptions. Patient d ischarged per ambulatory mode with walker to the exit. Respirations even and non-labored. No signs of distress noted. Disc with imaging provided to pt. * Urmila Sim RN - 09/09/2021 10:24 AM CDT [place] and ice pack given. at bedside. Awaiting radiology * Magalys Landry APRN, PERSONNEL SUPERVISOR - 09/09/2021 10:14 AM CDT Chief Complaint Patient presents with ??? Knee Injury Lexi Mcneil is a 66 y.o. female who presents to the ED c/o left knee and ankle pain after a fall she experienced yesterday. Patient states that she was exiting a van when she stepped on a rock, causing her to fall forward. Her spouse was able to grab her arm to break the fall, but patient reports landing on her left knee. She denies hitting head or loss of consciousness with the fall. She reports a constant aching to her left knee that is moderately severe. States that it is also throbbing.The pain worsens with movement and ambulation. States the pain radiates down into her left ankle. States she currently wears a brace on her left foot for drop foot. She states that she is unable to bear weight on the left foot. She denies numbness. Past Medical History Positives No date: Hypertension No current facility-administered medications for this encounter. Current Outpatient Medications Medication Sig Dispense Refill ??? acyclovir (ZOVIRAX) 400 MG Tablet Take 1 Tab by mouth 3 times daily. 21 Tab 0 ??? carbidopa-levodopa CR (SINEMET CR) 50-200 MG Tablet Controlled Release ??? celecoxib (CeleBREX) 200 MG Capsule ??? fluticasone (FLONASE) 50 MCG/ACT Suspension USE 1 SPRAY(S) EACH NOSTRIL TWO TIMES A DAY DIRECTED BY PHYSICIAN 16 g 0 ??? folic acid (FOLVITE) 1 MG Tablet ??? gabapentin (NEURONTIN) 600 MG Tablet ??? metoprolol tartrate (LOPRESSOR) 25 MG Tablet TAKE 1 TABLET BY MOUTH TWICE A DAY 180 Tablet 0 ??? omeprazole (PriLOSEC) 40 MG CAPSULE DELAYED RELEASE TAKE ONE CAPSULE BY MOUTH DAILY 90 Capsule 1 ??? traMADol (ULTRAM) 50 MG Tablet Allergies Allergen Reactions ??? Amitriptyline Rash ??? [...] ??? Zinc Citrate-Phytase Unknown ??? Fluorescein-Proparacaine Unknown Past Medical History Positives Diagnosis Date ??? Hypertension No past surgical history on file. Social History Socioeconomic History ??? Marital status: Spouse name: Not on file ??? Number of children: Not on file ??? Years of education: Not on file ??? Highest education level: Not on file Occupational History ??? Not on file Tobacco Use ??? Smoking status: Former Smoker Types: Cigarettes Quit date: 07/23/1969 Years since quittin.1 ??? Smokeless tobacco: Never Used Vaping Use ??? Vaping Use: Never used Substance and Sexual Activity ??? Alcohol use: Not Currently ??? Drug use: Never ??? Sexual activity: Not Currently Other Topics Concern ??? Not on file Social History Narrative ??? Not on file BP (!) 150/129 Pulse 97 Temp 97.3 ??F (36.3 ??C) (Tympanic) Resp 20 Ht 5' 4 (1.626 m) Wt190 lb (86.2 kg) SpO2 98% BMI 32.61 kg/m?? Review of Systems Constitutional: Negative for chills and fever. HENT: Negative for congestion, ear pain, rhinorrhea and sore throat. Eyes: Negative for discharge. Respiratory: Negative for cough, chest tightness, shortness of breath and wheezing. Cardiovascular: Negative for chest pain and palpitations. Gastrointestinal: Negative for abdominal pain, diarrhea, nausea and vomiting. Genitourinary: Negative for difficulty urinating and menstrual problem. Musculoskeletal: Positive for arthralgias (left knee and ankle) and joint swelling (left knee). Negative for myalgias. Skin: Negative for rash and wound. Neurological: Negative for dizziness, syncope, weakness, light-headedness, numbness and headaches. All other systems reviewed and are negative. Physical Exam Vitals and nursing note reviewed. Constitutional: General: She is not in acute distress. Appearance: She is well-developed. She is not diaphoretic. HENT: Head: Normocephalic and atraumatic. Right Ear: External ear normal. Left Ear: External ear normal. Eyes: Conjunctiva/sclera: Conjunctivae normal. Pupils: Pupils are equal, round, and reactive to light. Neck: Trachea: No tracheal deviation. Cardiovascular: Rate and Rhythm: Normal rate and regular rhythm. Heart sounds: Normal heart sounds. No murmur heard. Pulmonary: Effort: Pulmonary effort is normal. No respiratory distress. Breath sounds: Normal breath sounds. No wheezing or rales. Abdominal: General: Bowel sounds are normal. There is no distension. Palpations: Abdomen is soft. Tenderness: There is no abdominal tenderness. There is no guarding or rebound. Musculoskeletal: Cervical back: Normal range of motion. Left knee: Swelling and ecchymosis present. No erythema. Decreased range of motion. Tenderness present. Normal pulse. Comments: Sensation intact. Pulse + Skin: General: Skin is warm and dry. Neurological: Mental Status: She is alert and oriented to person, place, and time. Cranial Nerves: No cranial nerve deficit. Procedures Imaging Results XR KNEE 3 VIEWS LEFT (Final result) Result time 09/09/21 11:16:39 Final result by Yuri Colon MD (09/09/21 11:16:39) Impression: IMPRESSION: 1. Acute, nondisplaced, comminuted, intra-articular patellar fracture with transverse and longitudinal/sagittal components. Associated large knee joint effusion, suspected to be, at least in part, hemarthrosis. 2. Moderate to marked underlying tricompartmental osteoarthritis. Narrative: EXAM DESCRIPTION: XR KNEE 3 VIEWS LEFT REASON FOR STUDY: knee and ankle pain after a fall she experienced yesterday. Patient states that she was exiting a van when she stepped on a rock, causing her to fall forward TECHNIQUE: 3 radiographic views acquired of the left knee. COMPARISON: None available FINDINGS: BONES/JOINTS: There is an acute, comminuted fracture of the patella. A transverse intra-articular component is seen on the lateral view, through the midportion of the patella. No displacement or distraction is seen at this time. There is also a sagittal plane fracture component best seen on the sunrise view. No additional fractures are identified. Marked tricompartmental osteoarthritis with severe narrowing, spurring, and remodeling of the medial compartment and large patellofemoral compartment spurs. SOFT TISSUES: Large knee joint effusion. Several calcified/ossified loose bodies are noted, probably within the knee joint space. OTHER: No other significant finding. THIS IS AN ELECTRONICALLY VERIFIED FINAL REPORT 09/09/2021 11:13 AM - Electronically signed by Yuri Colon M.D. BC: CELINA Report ID: [id number] Reading Location: [id number] XR ANKLE 3 OR MORE VIEWS LEFT (Final result) Result time 09/09/21 11:18:38 Final result by Yuri Colon MD (09/09/21 11:18:38) Impression: IMPRESSION: No acute osseous abnormality. [id number] degenerative changes as above. Narrative: EXAM DESCRIPTION: XR ANKLE 3 OR MORE VIEWS LEFT REASON FOR STUDY: knee and ankle pain after a fall she experienced yesterday. Patient states that she was exiting a van when she stepped on a rock, causing her to fall forward TECHNIQUE: AP, lateral, and oblique radiographic views acquired of the left ankle. COMPARISON: None available FINDINGS: BONES/JOINTS: No acute fracture or dislocation. Ankle mortise alignment is preserved. There is jntp-vg-nwizunni degenerative change. Midfoot degeneration is also seen, more pronounced distally. There is a small plantar calcaneal spur. SOFT TISSUES: There is no significant ankle effusion. OTHER: No other significant finding. THIS IS AN ELECTRONICALLY VERIFIED FINAL REPORT 09/09/2021 11:15 AM - Electronically signed by Yuri Colon M.D. BC: CELINA Report ID: [id number] Reading Location: [place] [id number] Labs Reviewed - No data to display Labs Reviewed - No data to display XR KNEE 3 VIEWS LEFT Final Result IMPRESSION: 1. Acute, nondisplaced, comminuted, intra-articular patellar fracture with transverse and longitudinal/sagittal components. Associated large knee joint effusion, suspected to be, at least in part, hemarthrosis. 2. Moderate to marked underlying tricompartmental osteoarthritis. XR ANKLE 3 OR MORE VIEWS LEFT Final Result IMPRESSION: No acute osseous abnormality. Zfld-la-lrtbewcx degenerative changes as above. MDM Number of Diagnoses or Management Options Amount and/or Complexity of Data Reviewed Tests in the radiology section of CPT??: ordered and reviewed Review and summarize past medical records: yes Reviewed: previous chart, nursing note and vitals Interpretation: x-ray Clinical Impression 1. Patellar fracture X-ray indicates acute, nondisplaced, comminuted, intra-articular patellar fracture with transverse and sagittal components. Discussed with Dr. Young's office (patient's current orthopedist) the patient's case, history,lab results, physical exam findings, and current evaluations. They are aware of the patient's condition, diagnostic findings, and agree with the proposed management. Patient placed in knee immobilizer, provided walker, and instructed to follow-up with Dr. Young as soon as possible. Advised weight bearing is as tolerated on the left. Appointment made with 's office for at 0900. The patient remained stable throughout their ED stay. My clinical impression was discussed with thepatient/family. Labs and radiology results were reviewed with them. I gave them the opportunity to ask questions, and addressed them as completely as possible given the information available at present. The therapeutic plan was discussed, advised to take medications as instructed, instructions weregiven and the importance of primary care follow up was stressed and encouraged. The patient/family voiced understanding of the plan, indications to return, and the need for follow up. Cosigned by Tien Aviles MD at 09/12/2021 1:12 PM CDT * Urmila Cantrell RN - 09/09/2021 9:48 AM CDT Patient to triage with c/o left knee pain following a fall. States she was exiting a van when she stepped on a rock and fell forward. States she has left ankle tenderness as well from a brace she wears for foot drop. States she is unable to bear weight. documented in this encounter Plan of Treatment Upcoming Encounters Date Type Department Care Team (Late st Contact Info) Description 06/30/2024 10:00 AM NATIONAL SALES DIRECTOR Physical Therapy [facility] at [facility] [address] [place] [address] Raul Young MD [address] [place] [address] Brandi Coffey, PT [place] Discharge Disposition: Discharged to home or Selfcare 08/31/2024 9:30 AM CDT Office Visit [facility] - Internal Medicine - [place] [address] [place] [address] Tim Altman MD [address] [place] [address] documented as of this encounter Procedures Procedure Name Priority Date/Time Associated Diagnosis Comments XR KNEE 3 VIEWS LEFT STAT 09/09/2021 10:48 AM CDT XR ANKLE 3 OR MORE VIEWS LEFT STAT 09/09/2021 10:47 AM CDT documented in this encounter Results * XR KNEE 3 VIEWS LEFT (09/09/2021 10:48 AM CDT) Anatomical Region Laterality Modality LOWER EXTREMITY, knee Left Digital Ra diography 09/09/2021 11:1 3 AM CDT Impressions 09/09/2021 11:16 AM CDT IMPRESSION: ?? 1. ?? Acute, nondisplaced, comminuted, intra-articular patellar fracture with transverse and longitudinal/sagittal components. ?? Associated large knee joint effusion, suspected to be, at least in part, hemarthrosis. 2. ?? Moderate to marked underlying tricompartmental osteoarthritis. Narrative 09/09/2021 11:16 AM CDT EXAM DESCRIPTION: ? XR KNEE 3 VIEWS LEFT REASON FOR STUDY: ?knee and ankle pain after a fall she experienced yesterday. Patient states that she was exiting a van when she stepped on a rock, causing her to fall forward TECHNIQUE: ?? 3 ??radiographic views acquired of the left knee. COMPARISON: ?? None available FINDINGS: BONES/JOINTS: ?? There is an acute, comminuted fracture of the patella. ??A transverse intra-articular component is seen on the lateral view, through the midportion of the patella. ??No displacement or distraction is seen at this time. ??There is also a sagittal plane fracture component best seen on the sunrise view. ??No additional fractures are identified. ?Marked tricompartmental osteoarthritis with severe narrowing, spurring, and remodeling of the medial compartment and large patellofemoral compartment spurs. SOFT TISSUES: ?? Large knee joint effusion. ??Several calcified/ossified loose bodies are noted, probably within the knee joint space. OTHER: ?? No other significant finding. THIS IS AN ELECTRONICALLY VERIFIED FINAL REPORT 09/09/2021 11:13 AM - Electronically signed by ??Yuri Colon M.D. BC: CELINA D: ??09/09/2021 11:13 AM T: ??09/09/2021 11:13 AM Report ID: [id number] Reading Location: ??[id number] Procedure Note Yuri Colon MD - 09/09/2021 EXAM DESCRIPTION: XR KNEE 3 VIEWS LEFT REASON FOR STUDY: knee and ankle pain after a fall she experienced yesterday. Patient states that she was exiting a van when she stepped on a rock, causing her to fall forward TECHNIQUE: 3 radiographic views acquired of the left knee. COMPARISON: None available FINDINGS: BONES/JOINTS: There is an acute, comminuted fracture of the patella. A transverse intra-articular component is seen on the lateral view, through the midportion of the patella. No displacement or distraction is seen at this time. There is also a sagittal plane fracture component best seen on the sunrise view. No additional fractures are identified. Marked tricompartmental osteoarthritis with severe narrowing, spurring, and remodeling of the medial compartment and large patellofemoral compartment spurs. SOFT TISSUES: Large knee joint effusion. Several calcified/ossified loose bodies are noted, probably within the knee joint space. OTHER: No other significant finding. THIS IS AN ELECTRONICALLY VERIFIED FINAL REPORT 09/09/2021 11:13 AM - Electronically signed by Yuri PATRICK: CELINA Report ID: [id number] Reading Location: [id number] IMPRESSION: 1. Acute, nondisplaced, comminuted, intra-articular patellar fracture with transverse and longitudinal/sagittal components. Associated large knee joint effusion, suspected to be, at least in part, hemarthrosis. 2. Moderate to marked underlying tricompartmental osteoarthritis. us Magalys Buckner Frantz MULTIFOCAL LENS ASSEMBLER, PERSONNEL SUPERVISOR IMG DIAGNOSTIC ORDERA BLES Final Result * XR ANKLE 3 OR MORE VIEWS LEFT (09/09/2021 10:47 AM CDT) Anatomical Region Laterality Modality LOWER EXTREMITY, ankle Left Digital R adiography 09/09/2021 11:1 5 AM CDT Impressions 09/09/2021 11:18 AM CDT IMPRESSION: ?? No acute osseous abnormality. ?? Fylm-jg-nwnyvwtp degenerative changes as above. Narrative 09/09/2021 11:18 AM CDT EXAM DESCRIPTION: ?XR ANKLE 3 OR MORE VIEWS LEFT REASON FOR STUDY: ?knee and ankle pain after a fall she experienced yesterday. Patient states that she was exiting a van when she stepped on a rock, causing her to fall forward TECHNIQUE: ?? AP, lateral, and oblique ??radiographic views acquired of the left ankle. COMPARISON: ?? None available FINDINGS: BONES/JOINTS: ?? No acute fracture or dislocation. ?Ankle mortise alignment is preserved. ??There is qpej-ve-hkvsjopp degenerative change. ??Midfoot degeneration is also seen, more pronounced distally. ??There is a small plantar calcaneal spur. SOFT TISSUES: ?? There is no significant ankle effusion. OTHER: ?? No other significant finding. THIS IS AN ELECTRONICALLY VERIFIED FINAL REPORT 09/09/2021 11:15 AM - Electronically signed by ??Yuri oClon M.D. BC: CELINA D: ??09/09/2021 11:15 AM T: ??09/09/2021 11:15 AM Report ID: [id number] Reading Location: ??[id number] Procedure Note Yuri Colon MD - 09/09/2021 EXAM DESCRIPTION: XR ANKLE 3 OR MORE VIEWS LEFT REASON FOR STUDY: knee and ankle pain after a fall she experienced yesterday. Patient states that she was exiting a van when she stepped on a rock, causing her to fall forward TECHNIQUE: AP, lateral, and oblique radiographic views acquired of the left ankle. COMPARISON: None available FINDINGS: BONES/JOINTS: No acute fracture or dislocation. Ankle mortise alignment is preserved. There is gpvm-yi-vfgvusgl degenerative change. Midfoot degeneration is also seen, more pronounced distally. There is a small plantar calcaneal spur. SOFT TISSUES: There is no significant ankle effusion. OTHER: No other significant finding. THIS IS AN ELECTRONICALLY VERIFIED FINAL REPORT 09/09/2021 11:15 AM - Electronically signed by Yuri Colon M.D. BC: CELINA Report ID: [id number] Reading Location: [id number] IMPRESSION: No acute osseous abnormality. Fcsr-sk-ixznwkmq degenerative changes as above. Magalys Landry APRN, PERSONNEL SUPERVISOR IMG DIAGNOSTIC ORDERA BLES Final Result documented in this encounter Visit Diagnoses Diagnosis Patellar fracture- Primary Closed fracture of patella documented in this encounter Additional Health Concerns Assessment Noted Time PHQ-9 Depression Total Score: 0 06/18/19 21 3:00 PM NATIONAL SALES DIRECTOR documented as of this encounter Care Teams Cdl Bulk Driver Relationship Specialty Start Date End Date Tim Altman MD [address] [place] [address] PCP - General Internal Medicine 12/03/15 documented as of this encounter
--- OUTSIDE RECORDS SUMMARY | 2024-06-17 14:48 | XMS_ITS | Encounter Summary ---
Author Organization [facility] Care Team Providers Care Knitting Inspector Name Role Phone Tim Altman MD Primary Care Provider [phone] Encounter Details Date Type Department Care Team (Latest Contact Info) Description 07/09/2022 Travel Social History Tobacco Use Types Packs/Day [...] suspected to have Coronavirus/COVID-19? No / Unsure 07/09/2022 7:50 AM FOOD SERVICE ATTENDANT documented as of this encounter Functional Status * Question Answer Date of Assessment Author Little interest or pleasure in doing things Not at all 07/09/2022 8:00 AM Doris Lucas CMA Feeling down, depressed, or hopeless Not at all 07/09/2022 8:00 AM Doris Lucas CMA * Over the past 2 weeks, how often have you been bothered by any of the following problems? Question Answer Date of Assessment Author Patient Health Questionnaire -2 Score 0 07/09/2022 8:00 AM FOOD SERVICE ATTENDANT Doris Babb CMA documented as of this encounter Plan of Treatment Upcoming Encounters Date Type Department Care Team (Late st Contact Info) Description 06/30/2024 10:00 AM FOOD SERVICE ATTENDANT Physical Therapy [facility] at [facility] [address] [place] [address] Raul Young MD [address] [place] [address] Brandi Coffey, PT [place] Discharge Disposition: Discharged to home or Selfcare 08/31/2024 9:30 AM CDT Office Visit [facility] Medical Group - Internal Medicine - [place] [address] [place] [id number] Tim Altman MD [address] [place] [address] documented as of this encounter Visit Diagnoses Not on filedocumented in this encounter Additional Health Concerns Assessment Noted Time PHQ-9 Depression Total Score: 0 06/18/19 21 3:00 PM FOOD SERVICE ATTENDANT documented as of this encounter Care Teams Knitting Inspector Relationship Specialty Start Date End Date Tim Altman MD [address] [place] [address] PCP - General Internal Medicine 12/03/15 documented as of this encounter
--- OUTSIDE RECORDS SUMMARY | 2024-06-17 14:48 | XMS_ITS | Encounter Summary ---
Author Organization [facility] Address [address] [place] [address] Phone Care Team Providers Care Clinical Nursing Manager Name Role Phone Tim Altman MD Primary Care Provider Sanaz Mendoza RN Unavailable Unavailable Reason for Visit * Reason Comments Medication Refill Encounter Details Date Type Department Care Team (Late st Contact Info) Description 08/19/2022 Refill [facility] - [place] [address] [place] [address] Tim Altman MD [address] [facility] [place] [address] Medication Refill Social History Tobacco [...] st Contact Info) Description 06/30/2024 10:00 AM AIR SUPPORT CONTROL OFFICER Physical [facility] [address] [place] [address] Raul Young MD [address] [place] [address] Brandi Coffey, PT [place] Discharge Disposition: Discharged to home or Selfcare 08/31/2024 9:30 AM CDT Office Visit [facility] - Internal Medicine - [place] [address] [place] [phone] Tim Altman MD [address] [facility] [place] [address] documented as of this encounter Visit Diagnoses Not on filedocumented in this encounter Additional Health Concerns Assessment Noted Time PHQ-9 Depression Total Score: 0 06/18/19 21 3:00 PM AIR SUPPORT CONTROL OFFICER documented as of this encounter Care Teams Clinical Nursing Manager Relationship Specialty Start Date End Date Tim Altman MD [address] [place] [address] PCP - General Internal Medicine 12/03/15 Sanaz Mendoza, RN [place] Nurse Auditing Control Clerk 03/09/24 03/09/24 documented as of this encounter
--- OUTSIDE RECORDS SUMMARY | 2024-06-17 14:48 | XMS_ITS | Encounter Summary ---
Author Organization [facility] Address [address] [place] [address] Phone Care Team Providers Care Volunteer Fire Fighter Name Role Phone Tim Altman MD Primary Care Provider Reason for Referral * Radiology Services (Routine) - Closed Specialty Diagnoses / Procedures Referred By Contac t Referred To Contact Radiology Diagnoses Breast cancer screening by mammogram Procedures YULIET SCREENING BILATERAL DIGITAL W CAD W RAFAEL Tim Altman MD [address] [place] [address] Phone: tel: fax: Referral ID Status Reason Start Date Expiration Date Visits Re quested Visits Authorized [id number] Closed 07/09/2022 1 1 ERTING TECHNICIAN Reason for Visit * Reason Comments Hypertension 3 mo f/u Encounter Details Date Type Department Care Team (Late st Contact Info) Description 07/09/2022 8:45 AM CONVERTING TECHNICIAN Office Visit [facility] - Internal Medicine - Sunday [address] [place] [address] Tim Altman MD [address] [place] [address] Reflex sympathetic dystrophy of left lower extremity (Primary Dx); Breast cancer screening by mammogram; Other specified rheumatoid arthritis, multiple sites (HCC); GERD without esophagitis; Restless leg syndrome Discharge Disposition: Discharged to home or Selfcare Social History Tobacco Use Types Packs/Day Years Used Date Smoking Tobacco: Former Cigarettes Q uit: 07/23/1969 Smokeless Tobacco: Never Tobacco Cessation:Counseling Given: Not [...] Coronavirus/COVID-19? No / Unsure 07/09/2022 7:50 AM CONVERTING TECHNICIAN documented as of this encounter Last Filed Vital Signs Vital Sign Reading Time Taken Comments Blood Pressure 136/68 07/09/2022 8:08 AM CONVERTING TECHNICIAN Pulse 90 07/09/2022 8:08 AM CONVERTING TECHNICIAN Temperature 36.3 ??C (97.4 ??F) 07/09/2022 8:08 AM CS T Respiratory Rate - - Oxygen Saturation 98% 07/09/2022 8:08 AM CONVERTING TECHNICIAN Inhaled Oxygen Concentration - - Weight 88 kg (194 lb) 07/09/2022 8:08 AM CONVERTING TECHNICIAN Height 157.5 cm (5' 2 ) 07/09/2022 8:08 AM CONVERTING TECHNICIAN Body Mass Index 35.48 07/09/2022 8:08 AM CONVERTING TECHNICIAN documented in this encounter Functional Status * Question Answer Date of Assessment Author Little interest or pleasure in doing things Not at all 07/09/2022 8:00 AM Doris Lucas CMA Feeling down, depressed, or hopeless Not at all 07/09/2022 8:00 AM CONVERTING TECHNICIAN Doris Babb CMA * Over the past 2 weeks, how often have you been bothered by any of the following problems? Question Answer Date of Assessment Author Patient Health Questionnaire -2 Score 0 07/09/2022 8:00 AM CONVERTING TECHNICIAN Doris Babb CMA documented as of this encounter Progress Notes * Doris Babb CMA - 07/09/2022 8:45 AM CST Lexi Mcneil, 66 y.o., female is here for Hypertension (3 mo f/u) Medication Refills: Patient reports/denies need [...] MD azaTHIOprine (IMURAN) 50 MG Tablet 01/01/22 Steffen Ballesteros MD carbidopa-levodopa CR (SINEMET CR) 50-200 MG Tablet Controlled Release 05/14/20 Yes Steffen Ballesteros MD celecoxib (CeleBREX) 200 MG Capsule 04/06/20 Yes Steffen Ballesteros MD cyclobenzaprine (FLEXERIL) 5 MG Tablet 09/23/21 Steffen Ballesteros MD fluticasone (FLONASE) 50 MCG/ACT Suspension 1 [place] by Nasal route in the morning and at bedtime. Use in each nostril as directed. Patient not taking: Reported on 07/09/2022 12/30/21 Tim Altman MD gabapentin (NEURONTIN) 600 MG Tablet 04/06/20 Yes Steffen Ballesteros MD Golimumab 100 MG/ML Solution Auto-injector 100 mg. Patient not taking: Reported on 07/09/2022 Steffen Ballesteros MD metoprolol tartrate (LOPRESSOR) 25 MG Tablet TAKE ONE (1) TABLET BY MOUTH TWICE a DAY Patient not taking: Reported on 07/09/2022 06/17/22 Tim Altman MD omeprazole (PriLOSEC) 40 MG CAPSULE DELAYED RELEASE TAKE ONE CAPSULE BY MOUTH DAILY 05/29/22 Yes Tim Altman MD ondansetron (ZOFRAN) 4 MG Tablet Take 4 mg by mouth. Yes Steffen Ballesteros MD traMADol (ULTRAM) 50 MG Tablet 04/16/20 Yes Steffen Ballesteros MD There are no discontinued medications. I have reviewed the home medication list with the patient and have reconciled discrepancies. The list is accurate to the best of my knowledge. Smoking Status: Social History Tobacco Use ??? Smoking status: Former Types: Cigarettes Quit date: 07/23/1969 Years since quittin.9 ??? Smokeless tobacco: Never Vaping Use ??? Vaping Use: Never used Substance Use Topics ??? Alcohol use: Not Currently ??? Drug use: Never Smoking Cessation Counseling Given: no Health Care Maintenance: Health Maintenance Due Topic Date Due ??? SARS-COV-2 Immunization (1) Never done ??? DTaP/Tdap/Td Immunization (1 - Tdap) Never done ??? Zoster Immunization (1 of 2) Never done ??? Pneumococcal Immunization (65+ years) (1 - PCV) Never done ??? Influenza Immunization (1) Never done ??? Mammogram 06/19/2022 Orders Pended: yes The following BPA's have been addressed with the patient today: Mammogram, Smoking and Depression ERTING TECHNICIAN * Tim Altman MD - 07/09/2022 8:45 AM CST PROGRESS NOTE [facility] - [facility] [address] [place] [address] PHONE: [phone] FAX: [phone] 07/09/2022 NAME: Lexi Mcneil, : 1955, Assessment ASSESSMENT & PLAN: Return in about 6 months (around 01/06/2023) for GERD. Diagnoses and all orders for this visit: Reflex sympathetic dystrophy of left lower extremity Comments: Stable. Continue current medication Breast cancer screening by mammogram Comments: Will set up for mammogram Orders: - YULIET SCREENING BILATERAL DIGITAL W CAD W RAFAEL; Future Other specified rheumatoid arthritis, multiple sites (HCC) Comments: Continue follow-up with computer programmer chief GERD without esophagitis Comments: Stable. Continue current medication Restless leg syndrome Comments: Stable. Continue current medication Follow-up in 6 months, sooner if needed Chief Complaint Patient presents with ??? Hypertension 3 mo f/u HPI Patient is here for follow-up for RSD and other medical problems. Patient is off metoprolol due to side effects. Was discontinued by computer programmer chief. Monitoring blood pressure at home remains less than 140/90. No chest pain or palpitation. Left lower extremity pain remains stable. Generalized arthralgia stable. Tolerating medications well. ROS Review of systems was negative, except as documented in [facility] PHYSICAL EXAM VITALS: Wt Readings from Last 3 Encounters: 07/09/22 194 lb (88 kg) 01/14/22 193 lb 8 oz (87.8 kg) 09/09/21 190 lb (86.2 kg) Temp Readings from Last 3 Encounters: 07/09/22 97.4 ??F (36.3 ??C) (Temporal) 01/14/22 98.6 ??F (37 ??C) (Temporal) 09/09/21 97.3 ??F (36.3 ??C) (Tympanic) BP Readings from Last 3 Encounters: 07/09/22 136/68 01/14/22 (!) 178/102 09/09/21 (!) 150/129 Pulse Readings from Last 3 Encounters: 07/09/22 90 01/14/22 90 09/09/21 97 Physical Exam Vitals and nursing note reviewed. [...] are normal. Palpations: Abdomen is soft. Musculoskeletal: General: Normal range of motion. Cervical back: Normal range of motion and neck supple. Skin: General: Skin is warm and dry. Neurological: Mental Status: She is alert and oriented to person, place, and time. Psychiatric: Mood and Affect: Mood normal. Behavior: Behavior normal. AFO in place on left foot and ankle. Past medical, surgical, social and family history [...] ??? gabapentin (NEURONTIN) 600 MG Tablet ??? omeprazole (PriLOSEC) 40 MG CAPSULE DELAYED RELEASE ??? ondansetron (ZOFRAN) 4 MG Tablet ??? traMADol (ULTRAM) 50 MG Tablet I educated Lexi regarding diagnoses and plan of care. She verbalizes understanding and will call the office if situation changes. Voice recognition software was utilized in this dictation. Despite proof reading, typographical errors and/or content errors may have occurred. By: Tim Altman MD 07/09/2022 8:59 AM CONVERTING TECHNICIAN ERTING TECHNICIAN documented in this encounter Plan of Treatment Upcoming Encounters Date Type Department Care Team (Late st Contact Info) Description 06/30/2024 10:00 AM CONVERTING TECHNICIAN Physical Therapy [facility] [address] [place] [phone] Raul Young MD [address] [place] [address] Brandi Coffey, PT [place] Discharge Disposition: Discharged to home or Selfcare 08/31/2024 9:30 AM CDT [facility] Visit [facility] - Internal Medicine - Sunday [address] [place] [address] Tim Altman MD [address] [facility] [place] [address] documented as of this encounter Results * YULIET SCREENING BILATERAL DIGITAL W CAD [...] copy. Current study was also evaluated with [employer] version 7.2. 2D digital mammographic views, as well as 3D digital tomosynthesis were performed in the CC and MLO projections. ?? CLINICAL: Routine screening. Patient has no complaints. She reports a weight loss of 25 pounds. No personal history of cancer. Two maternal aunts had breast cancer. ?? COMPARISONS: Comparison is made to exams dated: ??12/30/2018, 01/06/2018, 12/17/2017, and 12/11/2016 [facility]. ?? BREAST TISSUE:There are scattered fibroglandular densities [...] Electronically signed by: Meme Espitia M.D. ? /penrad:08/28/2022 16:50:56 ?? Superintendent Building(s): Cristina ??RT Manuela(R)(M), [facility] letter sent: Normal Exam ?? Reading location: [facility] BI-RADS: 1 Negative Procedure Note Meme Espitia [...] exams dated: 12/30/2018, 01/06/2018, 12/17/2017, and 12/11/2016 [facility]. BREAST TISSUE:There are scattered fibroglandular densities in [...] exam. Electronically signed by: Meme Espitia M.D. ab/andrea:08/28/2022 16:50:56 Superintendent Building(s): RT Sasha(R)(M), [facility] letter sent: Normal Exam Reading location: [facility] BI-RADS: 1 Negative us Tim Altman MD IMG MAMMO ORDERABLES Final Result documented in this encounter Visit Diagnoses Diagnosis Reflex sympathetic dystrophy of left lower extremity- Primary Reflex sympathetic dystrophy of the lower limb Breast cancer screening by mammogram Other specified rheumatoid arthritis, multiple sites (HCC) GERD without esophagitis Esophageal reflux Restless leg syndrome Restless legs syndrome (RLS) Breast cancer screening by mammogram documented in this encounter Additional Health Concerns Assessment Noted Time PHQ-9 Depression Total Score: 0 06/18/19 21 3:00 PM CONVERTING TECHNICIAN documented as of this encounter Care Teams Volunteer Fire Fighter Relationship Specialty Start Date End Date Tim Altman MD [address] [place] [address] PCP - General Internal Medicine 12/03/15 documented as of this encounter
--- OUTSIDE RECORDS SUMMARY | 2024-06-17 14:48 | XMS_ITS | Encounter Summary ---
Author Organization [facility] Address [address] [place] [address] Phone Care Team Providers Care Graduate Nurse Name Role Phone Tim Altman MD Primary Care Provider Sanaz Mendoza RN Unavailable Unavailable Reason for Visit * Reason Comments Medication Refill Encounter Details Date Type Department Care Team (Late st Contact Info) Description 03/29/2022 Refill [facility] - [place] [address] [facility] [place] [address] Tim Altman MD [address] [place] [address] Medication Refill Social History Tobacco [...] st Contact Info) Description 06/30/2024 10:00 AM COREMAKING SUPERVISOR [facility] [address] [place] [address] Raul Young MD [address] [place] [address] Brandi Coffey, PT [place] Discharge Disposition: Discharged to home or Selfcare 08/31/2024 9:30 AM CDT Office Visit [facility] - Internal Medicine - [place] [address] [place] [phone] Tim Altman MD [address] [place] [address] documented as of this encounter Visit Diagnoses Not on filedocumented in this encounter Additional Health Concerns Assessment Noted Time PHQ-9 Depression Total Score: 0 06/18/19 21 3:00 PM COREMAKING SUPERVISOR documented as of this encounter Care Teams Graduate Nurse Relationship Specialty Start Date End Date Tim Altman MD [address] [place] [address] PCP - General Internal Medicine 12/03/15 Sanaz Mendoza, RN [place] Nurse Manager Mechanical 03/09/24 03/09/24 documented as of this encounter
--- OUTSIDE RECORDS SUMMARY | 2024-06-17 14:48 | XMS_ITS | Encounter Summary ---
Author Organization [facility] Care Team Providers Care Accounts Payable Accountant Name Role Phone Tim Altman MD Primary Care Provider Encounter Details Date Type Department Care Team (Latest Contact Info) Description 01/14/2022 Travel Social History Tobacco Use Types Packs/Day [...] suspected to have Coronavirus/COVID-19? No / Unsure 01/14/2022 10:35 AM CDT documented as of this encounter Plan of Treatment Upcoming Encounters Date Type Department Care Team (Late st Contact Info) Description 06/30/2024 10:00 AM ORDNANCE ENGINEERING TECHNICIAN Physical Therapy [facility] at [facility] [address] [place] [address] Raul Young MD [address] [place] [address] Brandi Coffey, PT [place] Discharge Disposition: Discharged to home or Selfcare 08/31/2024 9:30 AM CDT Office Visit [facility] - Internal Medicine [facility] [address] [place] [address] Tim Altman MD [address] [place] [address] documented as of this encounter Visit Diagnoses Not on filedocumented in this encounter Additional Health Concerns Infection Onset Date Last Indicated Resolved Time COVID - 19 Confirmed 01/03/2022 01/03/2022 022 12:16 AM CDT Assessment Noted Time PHQ-9 Depression Total Score: 0 06/18/19 21 3:00 PM ORDNANCE ENGINEERING TECHNICIAN documented as of this encounter Care Teams Accounts Payable Accountant Relationship Specialty Start Date End Date Tim Altman MD [address] [place] [address] PCP - General Internal Medicine 12/03/15 documented as of this encounter
--- OUTSIDE RECORDS SUMMARY | 2024-06-17 14:48 | XMS_ITS | Encounter Summary ---
Author Organization [facility] Address [address] [place] [address] Phone Care Team Providers Care Commercial Finance Manager Name Role Phone Tim Altman MD Primary Care Provider Reason for Visit * Reason Comments Cough Still has cough afte r covid Encounter Details Date Type Department Care Team (Late st Contact Info) Description 01/14/2022 10:45 AM CDT [facility] Visit [facility] - [facility] - [place] [address] [place] [address] Tim Altman MD [address] [place] [address] Post-COVID chronic cough (Primary Dx) Discharge Disposition: Discharged to home or Selfcare Social History Tobacco Use Types Packs/Day Years Used Date Smoking Tobacco: Former Cigarettes Q uit: 07/23/1969 Smokeless Tobacco: Never Tobacco Cessation:Counseling Given: No [...] In the last 10 days, have yo rosalva been in contact with someone who was confirmed or suspected to have Coronavirus/COVID-19? No / Unsure 01/14/2022 10:35 AM CDT documented as of this encounter Last Filed Vital Signs Vital Sign Reading Time Taken Comments Blood Pressure 178/102 01/14/2022 10:45 AM CDT Pulse 90 01/14/2022 10:45 AM CDT Temperature 37 ??C (98.6 ??F) 01/14/2022 10:45 AM CDT Respiratory Rate 14 01/14/2022 10:45 AM CDT Oxygen Saturation 96% 01/14/2022 10:45 AM CDT Inhaled Oxygen Concentration - - Weight 87.8 kg (193 lb 8 oz) 01/14/2022 10:45 AM CDT Height 157.5 cm (5' 2 ) 01/14/2022 10:45 AM CDT Body Mass Index 35.39 01/14/2022 10:45 AM CDT documented in this encounter Patient Instructions * Patient Instructions* Kylah Pace RMA - 01/14/2022 10:45 AM CDT Pneumonia is a serious lung infection that can make you very sick. There are now two vaccines recommended by the Center for Disease Control and Prevention (CDC) to protect against pneumonia for all patients who are 65 years and older and patients under 65 with certain conditions that put them at a higher risk. Request your pneumonia vaccines at your Primary Care Physician???s office or your localpharmacy. documented in this encounter Progress Notes * Kylah Pace RMA - 01/14/2022 10:45 AM CDT Lexi Mcneil is a 66 y.o. female with current BMI: There is no height or weight on file to calculate BMI. Interventions discussed including: encourage daily physical activity and well- balanced diet. * Kylah aPce RMA - 01/14/2022 10:45 AM CDT Lexi Mcneil, 66 y.o., female is here for Cough (Still has cough after covid ) Medication Refills: Patient reports/denies need for medication refills. Orders Pended: no Requested Prescriptions No prescriptions requested or ordered in this encounter Home Medications Medication Sig Start Date End Date Taking? Authorizing Provider acyclovir (ZOVIRAX) 400 MG Tablet Take 1 Tab by mouth 3 times daily. 05/22/20 Tim Altman MD carbidopa-levodopa CR (SINEMET CR) 50-200 MG Tablet Controlled Release 05/14/20 Steffen Ballesteros MD celecoxib (CeleBREX) 200 MG Capsule 04/06/20 Steffen Ballesteros MD fluticasone (FLONASE) 50 MCG/ACT Suspension 1 [place] by Nasal route in the morning and at bedtime. Use in each nostril as directed. 12/30/21 Tim Altman MD folic acid (FOLVITE) 1 MG Tablet 04/14/20 Steffen Ballesteros MD gabapentin (NEURONTIN) 600 MG Tablet 04/06/20 Steffen Ballesteros MD metoprolol tartrate (LOPRESSOR) 25 MG Tablet TAKE ONE (1) TABLET BY MOUTH TWICE a DAY 10/21/21 Tim Altman MD omeprazole (PriLOSEC) 40 MG CAPSULE DELAYED RELEASE TAKE ONE CAPSULE BY MOUTH DAILY 08/05/21 Tim Altman MD traMADol (ULTRAM) 50 MG Tablet 04/16/20 Steffen Ballesteros MD There are no discontinued medications. I have reviewed the home medication list with the patient and have reconciled discrepancies. The list is accurate to the best of my knowledge. Smoking Status: Social History Tobacco Use ??? Smoking status: Former Smoker Types: Cigarettes Quit date: 07/23/1969 Years since quittin.5 ??? Smokeless tobacco: Never Used Vaping Use ??? Vaping Use: Never used Substance Use Topics ??? Alcohol use: Not Currently ??? Drug use: Never Smoking Cessation Counseling Given: no Health Care Maintenance: Health Maintenance Due Topic Date Due ??? Hepatitis B Immunization (1 of 3 - 3-dose series) Never done ??? SARS-COV-2 Immunization (1) Never done ??? DTaP/Tdap/Td Immunization (1 - Tdap) Never done ??? Zoster Immunization (1 of 2) Never done ??? Pneumococcal Immunization (65+ years) (1 - PCV) Never done Orders Pended: no The following BPA's have been addressed with the patient today: BMI, TDAP and Pneumonia * Tim Altman MD - 01/14/2022 10:45 AM CDT PROGRESS NOTE [facility] - INTERNAL MEDICINE [address] [place] [address] PHONE: [phone] FAX: [phone] 01/14/2022 NAME: Lexi Mcneil, : 1955, Assessment ASSESSMENT & PLAN: Return if symptoms worsen or fail to improve. Diagnoses and all orders for this visit: Post-COVID chronic cough Comments: Will treat with Levaquin 500 mg daily. Increase prednisone to 30 mg daily for 7 days then go back to 5 mg daily. Albuterol inhaler as needed Other orders - azaTHIOprine (IMURAN) 50 MG Tablet - cyclobenzaprine (FLEXERIL) 5 MG Tablet - Golimumab 100 MG/ML Solution Auto-injector; 100 mg. - ondansetron (ZOFRAN) 4 MG Tablet; Take 4 mg by mouth. - levoFLOXacin (LEVAQUIN) 500 MG Tablet; Take 1 Tablet by mouth daily for 7 days. - albuterol 108 (90 Base) MCG/ACT Aerosol Solution; take 1-2 Puffs by inhalation every 4 hours as needed for Cough. - metoprolol tartrate (LOPRESSOR) 50 MG Tablet; Take 50 mg by mouth 2 times daily. Continue OTC guaifenesin as needed Chief Complaint Patient presents with ??? Cough Still has cough after covid HPI Patient is here with complain of persistent cough since had COVID about 10 days ago. No fever chills or rigors. Denies any shortness of breath. No sore throat. ROS Review of systems was negative, except as documented in HPI PHYSICAL EXAM VITALS: Wt Readings from Last 3 Encounters: 01/14/22 193 lb 8 oz (87.8 kg) 09/09/21 190 lb (86.2 kg) 06/20/21 197 lb (89.4 kg) Temp Readings from Last 3 Encounters: 01/14/22 98.6 ??F (37 ??C) (Temporal) 09/09/21 97.3 ??F (36.3 ??C) (Tympanic) 06/20/21 97.6 ??F (36.4 ??C) (Temporal) BP Readings from Last 3 Encounters: 01/14/22 (!) 178/102 09/09/21 (!) 150/129 06/20/21 112/66 Pulse Readings from Last 3 Encounters: 01/14/22 90 09/09/21 97 06/20/21 84 Physical Exam Vitals and nursing note reviewed. [...] sounds. Pulmonary: Effort: Pulmonary effort is normal. Comments: Bilateral rhonchi present. No wheezing or rales. Musculoskeletal: General: Normal range of motion. Cervical [...] ??? celecoxib (CeleBREX) 200 MG Capsule ??? cyclobenzaprine (FLEXERIL) 5 MG Tablet ??? fluticasone (FLONASE) 50 MCG/ACT Suspension ??? gabapentin (NEURONTIN) 600 MG Tablet ??? Golimumab 100 MG/ML Solution Auto-injector ??? levoFLOXacin (LEVAQUIN) 500 MG Tablet ??? metoprolol tartrate (LOPRESSOR) 50 MG Tablet ??? omeprazole (PriLOSEC) 40 MG [...] may have occurred. By: Tim Altman MD 01/14/2022 11:21 AM CDT documented in this encounter Plan of Treatment Upcoming Encounters Date Type Department Care Team (Late st Contact Info) Description 06/30/2024 10:00 AM COOLER ROOM WORKER Physical Therapy [facility] [address] [place] [phone] Raul Young MD [address] [place] [address] Brandi Coffey, PT [place] Discharge Disposition: Discharged to home or Selfcare 08/31/2024 9:30 AM CDT Office Visit [facility] - Internal Medicine [place] [address] [place] [address] Tim Altman MD [address] [facility] [place] [address] documented as of this encounter Visit Diagnoses Diagnosis Post-COVID chronic cough- Primary documented in this encounter Additional Health Concerns Infection Onset Date Last Indicated Resolved Time COVID - 19 Confirmed 01/03/2022 01/03/2022 022 12:16 AM CDT Assessment Noted Time PHQ-9 Depression Total Score: 0 06/18/19 21 3:00 PM COOLER ROOM WORKER documented as of this encounter Care Teams Commercial Finance Manager Relationship Specialty Start Date End Date Tim Altman MD [address] [place] [address] PCP - General Internal Medicine 12/03/15 documented as of this encounter
--- OUTSIDE RECORDS SUMMARY | 2024-06-17 14:48 | XMS_ITS | Encounter Summary ---
Author Organization [facility] Address [address] [place] [address] Phone Care Team Providers Care Poultry Breeder Name Role Phone Tim Altman MD Primary Care Provider Reason for Visit * Reason Comments Patient Outreach High Risk MSSP Encounter Details Date Type Department Care Team (Late st Contact Info) Description 11/14/2022 Care Management [facility] [address] [place] [address] Antoinette Loyd LSW [place] Patient Outreach (High Risk MSSP) Social History Tobacco Use Types Packs/Day Years [...] as of this encounter Progress Notes * Antoinette Loyd LSW - 11/14/2022 3:12 PM CDT Lexi Jose Ramon Ewa was identified as high risk MSSP on 11/14/22 . CM outreach placed to patient today to offer RN (Sanaz Mendoza) Care Management assistance. No answer. Left VM asking for return call to [facility]. ACP: No Discussion record completed: No Diagnoses: HTN, osteoarthritis, fibromyalgia * Sanaz Mendoza, RN - 11/14/2022 3:12 PM CDT No answer 2nd attempt. Message left for call back. Invitation letter sent. documented in this encounter Plan of Treatment Upcoming Encounters Date Type Department Care Team (Late st Contact Info) Description 06/30/2024 10:00 AM DECK MATE [facility] [address] [place] [address] Raul Young MD [address] [place] [address] Brandi Coffey, PT [place] Discharge Disposition: Discharged to home or Selfcare 08/31/2024 9:30 AM CDT Office Visit [facility] Medical [facility] - Internal Medicine [facility] [address] [place] [phone] Tim Altman MD [address] [place] [address] documented as of this encounter Visit Diagnoses Not on filedocumented in this encounter Additional Health Concerns Assessment Noted Time PHQ-9 Depression Total Score: 0 06/18/19 21 3:00 PM DECK MATE documented as of this encounter Care Teams Poultry Breeder Relationship Specialty Start Date End Date Tim Altman MD [address] [place] [address] PCP - General Internal Medicine 12/03/15 documented as of this encounter
--- OUTSIDE RECORDS SUMMARY | 2024-06-17 14:48 | XMS_ITS | Encounter Summary ---
Author Organization [facility] Address [address] [place] [address] Phone Care Team Providers Care Armed Security Guard Name Role Phone Tim Altman MD Primary Care Provider Sanaz Mendoza RN Unavailable Unavailable Reason for Visit * Reason Comments Medication Refill Encounter Details Date Type Department Care Team (Late st Contact Info) Description 09/15/2022 Refill [facility] - Internal [facility] - [place] [address] [facility] [place] [address] Tim Altman MD [address] [facility] [place] [address] Medication Refill Social History Tobacco [...] suspected to have Coronavirus/COVID-19? No / Unsure 08/28/2022 8:18 AM CDT documented as of this encounter Plan of Treatment Upcoming Encounters Date Type Department Care Team (Late st Contact Info) Description 06/30/2024 10:00 AM MANIPULATOR OPERATOR [facility] [address] [place] [address] Raul Young MD [address] [place] [address] Brandi Coffey, PT [place] Discharge Disposition: Discharged to home or Selfcare 08/31/2024 9:30 AM CDT Office Visit [facility] Medical Group - Internal Medicine - [place] [address] [place] [phone] Tim Altman MD [address] [place] [address] documented as of this encounter Visit Diagnoses Not on filedocumented in this encounter Additional Health Concerns Assessment Noted Time PHQ-9 Depression Total Score: 0 06/18/19 21 3:00 PM MANIPULATOR OPERATOR documented as of this encounter Care Teams Armed Security Guard Relationship Specialty Start Date End Date Tim Altman MD [address] [place] [address] PCP - General Internal Medicine 12/03/15 Sanaz Mendoza, RN [place] Nurse Gasoline Plant Operator 03/09/24 03/09/24 documented as of this encounter
--- OUTSIDE RECORDS SUMMARY | 2024-06-17 14:48 | XMS_ITS | Encounter Summary ---
Author Organization [facility] Address [address] [place] [address] Phone Care Team Providers Care Brush Polisher Name Role Phone Tim Altman MD Primary Care Provider Reason for Visit * Reason Comments Care Management High Risk Identifica tion Encounter Details Date Type Department Care Team (Late st Contact Info) Description 11/13/2021 Care Management [facility] Supervisor [employer]ricating Management [address] [place] [address] Rita Root MD Care Management (High Risk Identification) Social History Tobacco Use Types Packs/Day Years [...] as of this encounter Progress Notes * Rita Root - 11/13/2021 2:43 PM CDT Lexi Jose Ramon Ewa was identified as high risk MSSP on 11/13/21 . CM outreach placed to patient today to offer RN (Sanaz) Care Management assistance. Patient very short on the phone, unhappy with PCP and having to pay $91 each time she goes to office, considering leaving the practice. She has talked with business office, did not wish to continue conversation. ACP: No Discussion record completed: No Was ACP offered: No, no chance. Diagnoses: RA, Fibro, HTN, DJD documented in this encounter Plan of Treatment Upcoming Encounters Date Type Department Care Team (Late st Contact Info) Description 06/30/2024 10:00 AM CHUTE MAN Physical [facility] [address] [place] [phone] Raul Young MD [address] [place] [address] Brandi Coffey, PT [place] Discharge Disposition: Discharged to home or Selfcare 08/31/2024 9:30 AM CDT Office Visit [facility] - Internal Medicine - [place] [address] [place] [address] Tim Altman MD [address] [place] [address] documented as of this encounter Visit Diagnoses Not on filedocumented in this encounter Additional Health Concerns Assessment Noted Time PHQ-9 Depression Total Score: 0 06/18/19 21 3:00 PM CHUTE MAN documented as of this encounter Care Teams Brush Polisher Relationship Specialty Start Date End Date Tim Altman MD [address] [place] [address] PCP - General Internal Medicine 12/03/15 documented as of this encounter
--- OUTSIDE RECORDS SUMMARY | 2024-06-17 14:48 | XMS_ITS | Encounter Summary ---
Author Organization [facility] Address [address] [place] [address] Phone Care Team Providers Care Optical Designer Name Role Phone Tim Altman MD Primary Care Provider [phone]- [phone] Reason for Visit * Reason Comments Medication Refill Encounter Details Date Type Department Care Team (Late st Contact Info) Description 04/08/2022 Refill [facility] Medical Group - Internal Medicine - [place] [address] [place] [address] Tim Altman MD [address] [place] [address] Medication Refill Social History Tobacco [...] Telephone Encounter - Courtney Guzman RN - 04/08/2022 10:32 AM CDT Medication(s) [facility] and [facility] Med[facility] Refill Standing Order for Pediatricand Adult Patients. Requested Prescriptions Pending Prescriptions Disp Refills ??? metoprolol tartrate (LOPRESSOR) 25 MG Tablet [Pharmacy Med Name: METOPROLOL TARTRATE 25MG TABLET] 180 Tablet 0 Sig: TAKE ONE (1) TABLET BY MOUTH TWICE a DAY Beta-Blockers Protocol Passed - 04/08/2022 10:06 AM Passed - BP on record in the past year Clinician-entered: BP Readings from Last 3 Encounters: 01/14/22 (!) 178/102 09/09/21 (!) 150/129 06/20/21 112/66 Patient-entered: No data recorded Passed - Visit with relevant provider in past 12 months or upcoming 90 days Recent Visits Date Type Provider Dept 01/14/22 Office Visit Tim Altman MD [facility] [place] 12/30/21 Telemedicine Tim Altman MD [facility] [place] 06/20/21 Office Visit Tim Altman MD [facility] Showing recent visits within past 365 days and meeting all other requirements Future Appointments No visits were found meeting these conditions. Showing future appointments within next 90 days and meeting all other requirements documented in this encounter Plan of Treatment Upcoming Encounters Date Type Department Care Team (Late st Contact Info) Description 06/30/2024 10:00 AM DIRECTOR OF BUSINESS OPERATIONS Physical Therapy [facility] at [facility] [address] [facility], [address] [place] [address] Raul Young MD [address] [place] [address] Brandi Coffey, PT [place] Discharge Disposition: Discharged to home or Selfcare 08/31/2024 9:30 AM CDT Office Visit [facility] Medical Group - Internal Medicine - [place] [address] [place] [address] Tim Altman MD [address] [place] [address] documented as of this encounter Visit Diagnoses Not on filedocumented in this encounter Additional Health Concerns Assessment Noted Time PHQ-9 Depression Total Score: 0 06/18/19 21 3:00 PM DIRECTOR OF BUSINESS OPERATIONS documented as of this encounter Care Teams Optical Designer Relationship Specialty Start Date End Date Tim Altman MD [address] [place] [address] [address] PCP - General Internal Medicine 12/03/15 documented as of this encounter
--- OUTSIDE RECORDS SUMMARY | 2024-06-17 14:48 | XMS_ITS | Encounter Summary ---
Author Organization [facility] Care Team Providers Care Excelsior Machine Operator Name Role Phone Tim Altman MD Primary Care Provider Encounter Details Date Type Department Care Team (Latest Contact Info) Description 09/09/2021 Travel Social History Tobacco Use Types Packs/Day [...] st Contact Info) Description 06/30/2024 10:00 AM ELECTRICAL DESIGN TECHNOLOGIST Physical Therapy [facility] Rehab at [facility] [address] [place] [address] Raul Young MD [address] [place] [address] Brandi Coffey, [place] Discharge Disposition: Discharged to home or Selfcare 08/31/2024 9:30 AM CDT [facility] [address] [place] [phone] Tim Altman MD [address] [facility] [place] [address] documented as of this encounter Visit Diagnoses Not on filedocumented in this encounter Additional Health Concerns Assessment Noted Time PHQ-9 Depression Total Score: 0 06/18/19 21 3:00 PM ELECTRICAL DESIGN TECHNOLOGIST documented as of this encounter Care Teams Excelsior Machine Operator Relationship Specialty Start Date End Date Tim Altman MD [address] [place] [address] PCP - General Internal Medicine 12/03/15 documented as of this encounter
--- OUTSIDE RECORDS SUMMARY | 2024-06-17 14:48 | XMS_ITS | Encounter Summary ---
Author Organization [facility] Address [address] [place] [address] Phone Care Team Providers Care Miller Rod Mill Name Role Phone Tim Altman MD Primary Care Provider Reason for Visit * Reason Onset Date Comments Medication Refill 10/02/2022 Encounter Details Date Type Department Care Team (Late st Contact Info) Description 10/02/2022 Refill [facility] - [facility] - [place] [address] [facility] [address] Tim Altman MD [address] [facility] [address] Medication Refill Social History Tobacco [...] Telephone Encounter - Courtney Guzman RN - 10/02/2022 11:29 AM CDT Medication failed the protocol, provider to review and approve the medication order if appropriate. Requested Prescriptions Pending Prescriptions Disp Refills metoprolol tartrate (LOPRESSOR) 25 MG Tablet 180 Tablet 0 Sig: Take 1 Tablet by mouth 2 times daily. Beta-Blockers Protocol Failed - 10/02/2022 11:19 AM Failed - Active on medication list Passed - BP on record in the past year Clinician-entered: BP Readings from Last 3 Encounters: 07/09/22 136/68 01/14/22 (!) 178/102 09/09/21 (!) 150/129 Patient-entered: No data recorded Passed - Visit with relevant provider in past 12 months or upcoming 90 days Recent Visits Date Type Provider Dept 07/09/22 [facility]22 Office Visit [facility] [place] 12/30/21 Telemedicine [facility] Showing recent visits within past 365 days and meeting all other requirements Future Appointments No visits were found meeting these conditions. Showing future appointments within next 90 days and meeting all other requirements * Telephone Encounter - September - 10/02/2022 11:11 AM CDT Refill request Medication: Metoprolol 25 mg BID Pharmacy: [facility] documented in this encounter Plan of Treatment Upcoming Encounters Date Type Department Care Team (Late st Contact Info) Description 06/30/2024 10:00 AM CELL TENDER HELPER [facility] [address] [place] [address] Raul Young MD [address] [place] [address] Brandi Coffey, PT [place] Discharge Disposition: Discharged to home or Selfcare 08/31/2024 9:30 AM CDT [facility] - [place] [address] [place] [address] Tim Altman MD [address] [place] [address] documented as of this encounter Visit Diagnoses Not on filedocumented in this encounter Additional Health Concerns Assessment Noted Time PHQ-9 Depression Total Score: 0 06/18/19 21 3:00 PM CELL TENDER HELPER documented as of this encounter Care Teams Miller Rod Mill Relationship Specialty Start Date End Date Tim Altman MD [address] [place] [address] PCP - General Internal Medicine 12/03/15 documented as of this encounter
--- OUTSIDE RECORDS SUMMARY | 2024-06-17 14:48 | XMS_ITS | Encounter Summary ---
Author Organization [facility] Address [address] [place] [address] Phone Care Team Providers Care Test Bore Helper Name Role Phone Tim Altman MD Primary Care Provider [phone]- [phone] Reason for Visit * Reason Comments Medication Refill Encounter Details Date Type Department Care Team (Late st Contact Info) Description 08/02/2021 Refill [facility] Medical Group - Internal Medicine - [place] [address] [place] [address] Tim Altman MD [address] [place] [address] Medication Refill Social History Tobacco [...] Telephone Encounter - Berenice Davis RN - 08/05/2021 9:31 AM CST Medication(s) [facility] Medication Refill Standing Order for Pediatricand Adult Patients. Requested Prescriptions Pending Prescriptions Disp Refills ??? omeprazole (PriLOSEC) 40 MG CAPSULE DELAYED RELEASE [Pharmacy Med Name: OMEPRAZOLE 40MG CAPSULEDR] 90 Capsule 1 Sig: TAKE ONE CAPSULE BY MOUTH DAILY Proton Pump Inhibitors Protocol Passed - 08/02/2021 6:09 PM Passed - Visit with relevant provider in past 12 months or upcoming 90 days Recent Visits Date Type Provider Dept 06/20/21 Office Visit Tim Altman MD [facility] [place] 03/12/21 Office Visit Tim Altman MD [facility] [place] 12/18/20 Office Visit Tim Altman MD [facility] Showing recent visits within past 365 days and meeting all other requirements Future Appointments No visits were found meeting these conditions. Showing future appointments within next 90 days and meeting all other requirements ER TOOL AND DIE documented in this encounter Plan of Treatment Upcoming Encounters Date Type Department Care Team (Late st Contact Info) Description 06/30/2024 10:00 AM WELDER TOOL AND DIE Physical Therapy [facility] Re[facility] at [facility] [address] [facility] [address] [place] [address] Raul Young MD [address] [place] [address] Brandi Coffey, PT [place] Discharge Disposition: Discharged to home or Selfcare 08/31/2024 9:30 AM CDT Office Visit [facility] Medical Group - Internal Medicine - [place] [address] [place] [address] Tim Altman MD [address] [place] [place] [address] documented as of this encounter Visit Diagnoses Not on filedocumented in this encounter Additional Health Concerns Assessment Noted Time PHQ-9 Depression Total Score: 0 01/04/20 21 3:00 PM WELDER TOOL AND DIE documented as of this encounter Care Teams Test Bore Helper Relationship Specialty Start Date End Date Tim Altman MD [address] [place] [address] PCP - General Internal Medicine 12/03/15 documented as of this encounter
--- OUTSIDE RECORDS SUMMARY | 2024-06-17 14:48 | XMS_ITS | Encounter Summary ---
Author Organization [facility] Address [address] [place] [address] Phone Care Team Providers Care Endoscopy Technician Name Role Phone Tim Altman MD Primary Care Provider [phone] [phone] Reason for Referral * Radiology Services (Routine) - Closed Specialty Diagnoses / Procedures Referred By Contac t Referred To Contact Radiology Diagnoses Breast cancer screening by mammogram Procedures YULIET SCREENING BILATERAL DIGITAL W CAD W Tim Durham MD [address] [place] [address] Phone: tel: fax: Referral ID Status Reason Start Date Expiration Date Visits Re quested Visits Authorized [id number] Closed 07/09/2022 1 1 Reason for Visit * Radiology Services (Routine) - Closed Specialty Diagnoses / Procedures Referred By Dariela nettles Referred To Contact Radiology Diagnoses Breast cancer screening by mammogram Procedures YULIET SCREENING BILATERAL DIGITAL W CAD W Tim Durham MD [address] [place] [address] Phone: tel: fax: Referral ID Status Reason Start Date Expiration Date Visits Re quested Visits Authorized [id number] Closed 07/09/2022 1 1 Encounter Details Date Type Department Care Team (Late st Contact Info) Description 08/28/2022 8:25 AM CDT - 08/28/2022 11:59 PM CDT Hospital Encounter [facility] Mammography [address] [place] [address] Tim Altman MD [address] [place] [address] Discharge Disposition: Discharged to home or Selfcare [...] AM CDT documented as of this encounter Medications at Time of Discharge acyclovir (ZOVIRAX) 400 MG Tablet Take 1 Tab by mouth 3 times daily. 21 Tab 05/22/2020 albuterol 108 (90 Base) MCG/ACT Aerosol Solution take 1-2 Puffs by inhalation every 4 hours as needed for Cough. 18 g 01/14/2022 azaTHIOprine (IMURAN) 50 MG Tablet 01/01/2022 celecoxib (CeleBREX) 200 MG Capsule 04/06/2020 gabapentin (NEURONTIN) 600 MG Tablet 04/06/2020 ondansetron (ZOFRAN) 4 MG Tablet Take 4 mg by mouth. traMADol (ULTRAM) 50 MG Tablet 04/16/2020 carbidopa-levodo pa CR (SINEMET CR) 50-200 MG Tablet Controlled Release 05/14/2020 4 omeprazole (PriLOSEC) 40 MG CAPSULE DELAYED RELEASE TAKE ONE CAPSULE BY MOUTH DAILY 90 Capsule 1 05/29/2022 3 documented as of this encounter Plan of Treatment Upcoming Encounters Date Type Department Care Team (Late st Contact Info) Description 06/30/2024 10:00 AM LITIGATION ATTORNEY ASSOCIATE Physical Therapy [facility] Rehab at [facility] [address] [place] [address] Raul Young MD [address] [place] [address] Brandi Coffey, PT [place] Discharge Disposition: Discharged to home or Selfcare 08/31/2024 9:30 AM CDT Office Visit [facility] Medical Group - Internal Medicine - [place] [address] [place] [phone] Tim Altman MD [address] [place] [address] documented as of this encounter Procedures Procedure Name Priority Date/Time Associated Diagnosis Comments YULIET SCREENING BILATERAL DIGITAL W CAD W RAFAEL Routine 08/28/2022 8:59 AM CDT Breast cancer screening by mammogram documented in this encounter Results * YULIET SCREENING BILATERAL [...] exams dated: ??12/30/2018, 01/06/2018, 12/17/2017, and 12/11/2016 [facility]. ?? BREAST TISSUE:There are scattered fibroglandular densities [...] Electronically signed by: Meme Espitia M.D. ? ab/andrea:08/28/2022 16:50:56 ?? Occupational Therapist Assistant(s): Cristina ??RT Manuela(R)(M), [facility] letter sent: Normal Exam ?? Reading location: [facility] BI-RADS: 1 Negative Procedure Note Meme Espitia [...] dated: 12/30/2018, 01/06/2018, 12/17/2017, and 12/11/2016 [facility]. BREAST TISSUE:There are scattered fibroglandular densities in [...] next screening exam. Electronically signed by: Meme zambrano/andrea:08/28/2022 16:50:56 Occupational Therapist Assistant(s): Cristina Roy RT(R)(M), [facility] letter sent: Normal Exam Reading location: [facility] BI-RADS: 1 Negative us Tim Altman MD IMG MAMMO ORDERABLES Final Result documented in this encounter Visit Diagnoses Diagnosis Breast cancer screening by mammogram documented in this encounter Additional Health Concerns Assessment Noted Time PHQ-9 Depression Total Score: 0 06/18/19 21 3:00 PM LITIGATION ATTORNEY ASSOCIATE documented as of this encounter Care Teams Endoscopy Technician Relationship Specialty Start Date End Date Tim Altman MD [address] [place] [address] PCP - General Internal Medicine 12/03/15 documented as of this encounter
--- OUTSIDE RECORDS SUMMARY | 2024-06-17 14:48 | XMS_ITS | Encounter Summary ---
Author Organization [facility] Address [address] [place] [address] Phone Care Team Providers Care Public Speaking Professor Name Role Phone Tim Altman MD Primary Care Provider Reason for Visit * Reason Comments Medication Refill Encounter Details Date Type Department Care Team (Late st Contact Info) Description 11/13/2022 Refill [facility] - [place] [address] [place] [address] Sangita Best, [facility] [address] [place] [address] Medication Refill Social History Tobacco [...] Telephone Encounter - Courtney Guzman RN - 11/14/2022 9:15 AM CDT Medication(s) refilled and signed per [facility] Chronic Medication Refill Standing Order for Pediatricand Adult Patients. Requested Prescriptions Pending Prescriptions Disp Refills ??? metoprolol tartrate (LOPRESSOR) 25 MG Tablet [Pharmacy Med Name: METOPROLOL TARTRATE 25MG TABLET] 180 Tablet 0 Sig: TAKE 1 TABLET BY MOUTH TWO (2) TIMES DAILY. Beta-Blockers Protocol Passed - 11/13/2022 11:32 AM Passed - BP on record in the past year Clinician-entered: BP Readings from Last 3 Encounters: 07/09/22 136/68 01/14/22 (!) 178/102 09/09/21 (!) 150/129 Patient-entered: No data recorded Passed - Visit with relevant provider in past 12 months or upcoming 90 days Recent Visits Date Type Provider Dept 07/09/22 Office Visit Tim Altman MD [facility] [place] 01/14/22 Office Visit Tim Altman MD [facility] [place] 12/30/21 [facility] [place] Showing recent visits within past 365 days and meeting all other requirements Future Appointments Date Type Provider Dept 01/07/23 Appointment Tim Altman MD [facility] [place] Showing future appointments within next 90 days and meeting all other requirements documented in this encounter Plan of Treatment Upcoming Encounters Date Type Department Care Team (Late st Contact Info) Description 06/30/2024 10:00 AM RAIL OPERATOR Physical Therapy [facility] at [facility] [address] [place] [address] Raul Young MD [address] [place] [address] Brandi Coffey, PT [place] Discharge Disposition: Discharged to home or Selfcare 08/31/2024 9:30 AM CDT Office Visit [facility] - Internal Medicine - [place] [address] [place] [address] Tim Altman MD [address] [place] [address] documented as of this encounter Visit Diagnoses Not on filedocumented in this encounter Additional Health Concerns Assessment Noted Time PHQ-9 Depression Total Score: 0 06/18/19 21 3:00 PM RAIL OPERATOR documented as of this encounter Care Teams Public Speaking Professor Relationship Specialty Start Date End Date Tim Altman MD [address] [place] [address] PCP - General Internal Medicine 12/03/15 documented as of this encounter
--- OUTSIDE RECORDS SUMMARY | 2024-06-17 14:48 | XMS_ITS | Encounter Summary ---
Author Organization [facility] Address [address] [place] [address] Phone Care Team Providers Care Targeteer Name Role Phone Tim Altman MD Primary Care Provider [phone] Reason for Visit * Reason Onset Date Comments Results 03/18/2022 Encounter Details Date Type Department Care Team (Late st Contact Info) Description 03/18/2022 Telephone [facility] - [place] [address] [place] [address] Tim Altman MD [address] [place] [address] Results Social History Tobacco Use [...] Telephone Encounter - Berenice Davis RN - 03/19/2022 10:39 AM CDT Phoned patient with lab results and recommendations. Patient aware and verbalized understanding. * Telephone Encounter - Tim Altman MD - 03/19/2022 10:22 AM CDT CBC- [id number] NlL range., H/H- NL range CMP- Mild elevation of AST, which could be med related. Otherwise NL range. No chg in meds * Telephone Encounter - Rosemary Mahajan - 03/18/2022 11:43 AM CDT request for Lab results Lexi is calling for lab results, she says she had them done and her white cell count was high. Phone - [phone] documented in this encounter Plan of Treatment Upcoming Encounters Date Type Department Care Team (Late st Contact Info) Description 06/30/2024 10:00 AM SUSTAINABILITY ANALYST Physical Therapy [facility] at [facility] [address] [place] [phone] Raul Young MD [address] [place] [address] Brandi Coffey, PT [place] Discharge Disposition: Discharged to home or Selfcare 08/31/2024 9:30 AM CDT [facility] - [place] [address] [place] [address] Tim Altman MD [address] [place] [address] documented as of this encounter Visit Diagnoses Not on filedocumented in this encounter Additional Health Concerns Assessment Noted Time PHQ-9 Depression Total Score: 0 06/18/19 21 3:00 PM SUSTAINABILITY ANALYST documented as of this encounter Care Teams Targeteer Relationship Specialty Start Date End Date Tmi Altman MD [address] [place] [address] PCP - General Internal Medicine 12/03/15 documented as of this encounter
--- OUTSIDE RECORDS SUMMARY | 2024-06-17 14:48 | XMS_ITS | Encounter Summary ---
Author Organization [facility] Care Team Providers Care Dealership General Manager Name Role Phone Tim Altman MD Primary Care Provider Encounter Details Date Type Department Care Team (Latest Contact Info) Description 08/28/2022 Travel Social History Tobacco Use Types Packs/Day [...] st Contact Info) Description 06/30/2024 10:00 AM EFFICIENCY MINER Physical Therapy [facility] [address] [place] [address] Raul Young MD [address] [place] [address] Brandi Coffey, PT [place] Discharge Disposition: Discharged to home or Selfcare 08/31/2024 9:30 AM CDT Office Visit [facility] - Internal Medicine [facility] [address] [place] [phone] Tim Altman MD [address] [facility] [place] [address] documented as of this encounter Visit Diagnoses Not on filedocumented in this encounter Additional Health Concerns Assessment Noted Time PHQ-9 Depression Total Score: 0 06/18/19 21 3:00 PM EFFICIENCY MINER documented as of this encounter Care Teams Dealership General Manager Relationship Specialty Start Date End Date Tim Altman MD [address] [place] [address] PCP - General Internal Medicine 12/03/15 documented as of this encounter
--- OUTSIDE RECORDS SUMMARY | 2024-06-17 14:48 | XMS_ITS | Encounter Summary ---
Author Organization [facility] Address [address] [place] [address] Phone Care Team Providers Care Costume Draper Name Role Phone Tim Altman MD Primary Care Provider [phone] Reason for Referral * Consult, Test & Initiate Treatment (Less Than 1 Week) - Closed Specialty Diagnoses / Procedures Referred By Contac t Referred To Contact Diagnoses Routine health maintenance (Adult) Tim Altman MD [address] [place] [address] Phone: tel: fax: [facility] [address] [place] [address] Phone: tel: fax: Referral ID Status Reason Start Date Expiration Date Visits Re quested Visits Authorized [id number] Closed 07/30/2021 1 1 Scheduling Instructions Lexi is being referred to Dr. Head and [facility] or other specialist in patient's insurance network for general adjustment. See below for Lexi's current medications, allergies and problem list. CURRENT MEDS: Current Outpatient Medications: acyclovir (ZOVIRAX) 400 MG Tablet, Take 1 Tab by mouth 3 times daily., Disp: 21 Tab, Rfl: 0 carbidopa-levodopa CR (SINEMET CR) 50-200 MG Tablet Controlled Release, , Disp: , Rfl: celecoxib (CeleBREX) 200 MG Capsule, , Disp: , Rfl: fluticasone (FLONASE) 50 MCG/ACT Suspension, USE 1 SPRAY(S) EACH NOSTRIL TWO TIMES A DAY DIRECTED BY PHYSICIAN, Disp: 16 g, Rfl: 0 folic acid (FOLVITE) 1 MG Tablet, , Disp: , Rfl: gabapentin (NEURONTIN) 600 MG Tablet, , Disp: , Rfl: metoprolol tartrate (LOPRESSOR) 25 MG Tablet, TAKE 1 TABLET BY MOUTH TWICE A DAY, Disp: 180 Tablet, Rfl: 0 omeprazole (PriLOSEC) 40 MG CAPSULE DELAYED RELEASE, TAKE ONE CAPSULE BY MOUTH DAILY, Disp: 90 Capsule, Rfl: 1 traMADol (ULTRAM) 50 MG Tablet, , Disp: , Rfl: No current facility-administered medications for this visit. ALLERGIES: -- Amitriptyline -- Rash -- Codeine -- Other (see Comments) -- K-Y Jelly [Surgical Lubricant] -- Rash -- Patient call in after exam and states this made her vagina irritated -- Penicillins -- Rash -- Rosuvastatin -- Other (see Comments) -- Wound Dressing Adhesive -- Rash -- Cephalexin -- Unknown -- Ezetimibe-Simvastatin -- Unknown -- Hydrocodone-Acetaminophen -- Unknown -- Medroxyprogesterone -- Other (see Comments) and Unknown -- Sulfa Antibiotics -- Rash -- Zinc Citrate-Phytase -- Unknown -- Fluorescein-Proparacaine -- Unknown PROBLEM LIST: Patient Active Problem List: Essential hypertension, benign GERD without esophagitis Other specified rheumatoid arthritis, multiple sites (HCC) Reflex sympathetic dystrophy of left lower extremity Other hyperlipidemia Restless leg syndrome RAFT INSPECTION RECORD CLERK Encounter Details Date Type Department Care Team (Late st Contact Info) Description 07/30/2021 Telephone [facility] - [facility] - [place] [address] [place] [address] Tim Altman MD [address] [place] [address] Social History Tobacco Use Types Packs/Day [...] Telephone Encounter - Tim Altman MD - 07/30/2021 1:54 PM AIRCRAFT INSPECTION RECORD CLERK Okay for referral RAFT INSPECTION RECORD CLERK * Telephone Encounter - Berenice Davis RN - 07/30/2021 1:49 PM CST ----- Message from Rosemary Mahajan sent at 07/30/2021 11:09 AM AIRCRAFT INSPECTION RECORD CLERK ----- Regarding: REFERRAL REQUEST PT IS REQUESTING A REFERRAL TO [facility] FOR Chiropractic (general adjustments). Appointment is on Thursday08-02-21 at 1:45pm Call back number:[phone] RAFT INSPECTION RECORD CLERK documented in this encounter Plan of Treatment Upcoming Encounters Date Type Department Care Team (Late st Contact Info) Description 06/30/2024 10:00 AM AIRCRAFT INSPECTION RECORD CLERK [facility] [address] [place] [phone] Raul Young MD [address] [place] [address] Brandi Coffey, PT [place] Discharge Disposition: Discharged to home or Selfcare 08/31/2024 9:30 AM CDT [facility] [place] [address] [place] [address] Tim Altman MD [address] [place] [address] Scheduled Referrals Name Type Priority Associated Diagnoses Orde r Schedule EXTERNAL CHIROPRACTIC REFERRAL Outpatient Referral Routine Routine health maintenance (Adult) Expected: 07/30/2021, Expires: 07/30/2022 documented as of this encounter Visit Diagnoses Diagnosis Routine health maintenance (Adult)- Primary Routine general medical examination at a health care facility documented in this encounter Additional Health Concerns Assessment Noted Time PHQ-9 Depression Total Score: 0 06/18/19 21 3:00 PM AIRCRAFT INSPECTION RECORD CLERK documented as of this encounter Care Teams Costume Draper Relationship Specialty Start Date End Date Tim Altman MD [address] [place] [address] PCP - General Internal Medicine 12/03/15 documented as of this encounter
--- OUTSIDE RECORDS SUMMARY | 2024-06-17 14:48 | XMS_ITS | Encounter Summary ---
Author Organization [facility] Address [address] [place] [address] Phone Care Team Providers Care Jailer/Training Officer Name Role Phone Tim Altman MD Primary Care Provider Sanaz Mendoza RN Unavailable Unavailable Reason for Visit * Reason Comments Medication Refill Encounter Details Date Type Department Care Team (Late st Contact Info) Description 10/02/2022 Refill [facility] - [place] [address] [facility] [place] [address] Tim Altman MD [address] [facility] [place] [address] Medication Refill Social History Tobacco [...] st Contact Info) Description 06/30/2024 10:00 AM BOX SORTER [facility] [address] [place] [address] Raul Young MD [address] [place] [address] Brandi Coffey, PT [place] Discharge Disposition: Discharged to home or Selfcare 08/31/2024 9:30 AM CDT Office Visit [facility] - Internal Medicine - [place] [address] [place] [phone] Tim Altman MD [address] [facility] [place] [address] documented as of this encounter Visit Diagnoses Not on filedocumented in this encounter Additional Health Concerns Assessment Noted Time PHQ-9 Depression Total Score: 0 06/18/19 21 3:00 PM BOX SORTER documented as of this encounter Care Teams Jailer/Training Officer Relationship Specialty Start Date End Date Tim Altman MD [address] [place] [address] PCP - General Internal Medicine 12/03/15 Sanaz Mendoza, RN [place] Nurse Filing Machine Operator 03/09/24 03/09/24 documented as of this encounter
--- OUTSIDE RECORDS SUMMARY | 2024-06-17 14:48 | XMS_ITS | Encounter Summary ---
Author Organization [facility] Address [address] [place] [address] Phone Care Team Providers Care Cmo & President Name Role Phone Tim Altman MD Primary Care Provider [phone] Reason for Visit * Reason Onset Date Comments COVID-19 01/03/2022 Encounter Details Date Type Department Care Team (Late st Contact Info) Description 01/03/2022 Nurse Triage [facility] [address] [place] [address] Tim Altman MD [address] [place] [address] COVID-19 Social History Tobacco Use Types Packs/Day Years [...] was confirmed or suspected to have Coronavirus/COVID-19? Yes 01/03/2022 9:32 PM CDT documented as of this encounter Miscellaneous Notes * Telephone Encounter - Jade Nair Benjamin RN - 01/03/2022 9:20 PM CDT SITUATION: Covid 19 BACKGROUND: Patient reporting she took a positive home test for Covid tondylan, tested positive two weeks ago and took Azythromicin for 4 days and was much better after taking. Caller asking for a prescription. States her PCP told her at her 's recent office visit for Covid (same PCP)that if she developed any sympoms to call right away as she has not had any Covid vaccines, states she cannot take them ASSESSMENT: Symptom Description / Location: started with ,mild cough, worsening cough began this evening, head feels plugged up . Diarrhea since yesterday Pain (0-10): 12/22 and she states this is typical for her, chronic nerve disorder /arthritis Temp: denies fever RECOMMENDATION: POC contacted and orders received for Paxlovid. 24 hour [facility] in [place] called with order and patient will machine operator picker in the morning. POC notified of patient being on a beta zenia. TORB: Dr Luis Alberto Pierson: Okay to prescribe patient one regular dose pack of the Paxlovid , no refill. Paxlovid: nirmatrelvir 300 mg (2 x 150 mg pink tablets) and ritonavir 100 mg (white tablet). Take 2pink tablets of nirmatrelvir with 1 white tablet of ritonavir by mouth 2 times each day (in the morning and evening) for 5 days. For each dose, take all 3 tablets at the same time. See care advice and disposition for Guideline First positive answer recorded, all responses to prior questions were negative. If symptoms increase, change or if new symptoms develop, call your HCP or call back. Recommendations were based on caller information and is not a diagnosis. Verified and reviewed all triage information with caller. Reason for Disposition ? ? [1] HIGH RISK for severe COVID complications (e.g., weak immune system, age > 64 years, obesity with BMI > 25, , chronic lung disease or other chronic medical condition) AND [2] COVID symptoms (e.g., cough, fever) (Exceptions: Already seen by PCP and no new or worsening symptoms.) Protocols used: CORONAVIRUS (COVID-19) DIAGNOSED OR [id number] documented in this encounter Plan of Treatment Upcoming Encounters Date Type Department Care Team (Late st Contact Info) Description 06/30/2024 10:00 AM ASSOCIATE PROFESSOR OF PSYCHOLOGY [facility] [address] [place] [address] Raul Young MD [address] [place] [address] Brandi Coffey, PT [place] Discharge Disposition: Discharged to home or Selfcare 08/31/2024 9:30 AM CDT Office Visit [facility] - Internal Medicine [facility] [address] [place] [phone] Tim Altman MD [address] [place] [address] documented as of this encounter Visit Diagnoses Not on filedocumented in this encounter Additional Health Concerns Infection Onset Date Last Indicated Resolved Time COVID - 19 Confirmed 01/03/2022 01/03/2022 022 12:16 AM CDT Assessment Noted Time PHQ-9 Depression Total Score: 0 06/18/19 21 3:00 PM ASSOCIATE PROFESSOR OF PSYCHOLOGY documented as of this encounter Care Teams Cmo & President Relationship Specialty Start Date End Date Tim Altman MD [address] [place] [address] PCP - General Internal Medicine 12/03/15 documented as of this encounter
--- OUTSIDE RECORDS SUMMARY | 2024-06-17 14:48 | XMS_ITS | Encounter Summary ---
Author Organization [facility] Care Team Providers Care Liquid Natural Gas Plant Operator Name Role Phone Tim Altman MD Primary Care Provider [phone] Encounter Details Date Type Department Care Team (Latest Contact Info) Description 01/03/2022 Travel Social History Tobacco Use Types Packs/Day [...] PM CDT documented as of this encounter Plan of Treatment Upcoming Encounters Date Type Department Care Team (Late st Contact Info) Description 06/30/2024 10:00 AM CREATIVE WRITING PROFESSOR Physical Therapy [facility] at [facility] [address] [place] [address] Raul Young MD [address] [place] [address] Brandi Coffey, PT [place] Discharge Disposition: Discharged to home or Selfcare 08/31/2024 9:30 AM CDT Office Visit [facility] - Internal Medicine [facility] [address] [place] [address] Tim Altman MD [address] [place] [id number] documented as of this encounter Visit Diagnoses Not on filedocumented in this encounter Additional Health Concerns Infection Onset Date Last Indicated Resolved Time COVID - 19 Confirmed 01/03/2022 01/03/2022 022 12:16 AM CDT Assessment Noted Time PHQ-9 Depression Total Score: 0 06/18/19 21 3:00 PM CREATIVE WRITING PROFESSOR documented as of this encounter Care Teams Liquid Natural Gas Plant Operator Relationship Specialty Start Date End Date Tim Altman MD [address] [place] [address] PCP - General Internal Medicine 12/03/15 documented as of this encounter
--- OUTSIDE RECORDS SUMMARY | 2024-06-17 14:48 | XMS_ITS | Encounter Summary ---
Author Organization [facility] Address [address] [place] [address] Phone Care Team Providers Care Chief Mechanical Officer Name Role Phone Tim Atlman MD Primary Care Provider [phone]- [phone] Reason for Visit * Reason Comments Hypertension Encounter Details Date Type Department Care Team (Late st Contact Info) Description 12/30/2021 10:00 AM CDT Telemedicine [facility] - [place] [address] [place] [address] Tim Altman MD [address] [place] [address] Essential hypertension, benign (Primary Dx); Other hyperlipidemia; GERD without esophagitis; Allergic rhinitis due to other allergic trigger, unspecified seasonality; Other specified rheumatoid arthritis, multiple sites (HCC) Social History Tobacco Use Types Packs/Day [...] as of this encounter Progress Notes * Tim Altman MD - 12/30/2021 10:00 AM CDT PROGRESS NOTE [facility] - INTERNAL MEDICINE [address] [place] [address] PHONE: [phone] FAX: [phone] 12/30/2021 NAME: Lexi Mcneil, : 1955, Assessment ASSESSMENT & PLAN: No follow-ups on file. Diagnoses and all orders for this visit: Essential hypertension, benign Comments: Stable. Continue current medication Other hyperlipidemia Comments: Stable. Continue current medication GERD without esophagitis Comments: Stable. Continue current medication Allergic rhinitis due to other allergic trigger, unspecified seasonality Comments: Stable. Continue current medication Other specified rheumatoid arthritis, multiple sites (HCC) Comments: Continue follow-up with nonprofit financial controller Other orders - fluticasone (FLONASE) 50 MCG/ACT Suspension; 1 [place] by Nasal route in the morning and at bedtime. Use in each nostril as directed. Follow-up in 6 months, sooner if needed Chief Complaint Patient presents with ??? Hypertension HPI Patient tele visit for follow-up for hypertension other medical problem. Patient's recentlydiagnosed to have COVID-19 infection so patient tele visit instead of in-person visit. Patient is feeling well. Does not have any signs symptoms of COVID infection. No chest pain or palpitation. Tolerating medications well. Being followed by web operations specialist for her rheumatoid arthritis. ROS Review of systems was negative, except as documented in HPI PHYSICAL EXAM VITALS: Wt Readings from Last 3 Encounters: 09/09/21 190 lb (86.2 kg) 06/20/21 197 lb (89.4 kg) 12/18/20 196 lb (88.9 kg) Temp Readings from Last 3 Encounters: 09/09/21 97.3 ??F (36.3 ??C) (Tympanic) 06/20/21 97.6 ??F (36.4 ??C) (Temporal) 03/12/21 98.4 ??F (36.9 ??C) (Temporal) BP Readings from Last 3 Encounters: 09/09/21 (!) 150/129 06/20/21 112/66 03/12/21 134/72 Pulse Readings from Last 3 Encounters: 09/09/21 97 06/20/21 84 03/12/21 70 Physical Exam Telephone visit Patient was assessed via telephone for a duration of 7 minutes. Patient verbally consented for thisservice to be performed and billed.The patient was at home. Past medical, surgical, social and family history [...] ??? acyclovir (ZOVIRAX) 400 MG Tablet ??? carbidopa-levodopa CR (SINEMET CR) 50-200 MG Tablet Controlled Release ??? celecoxib (CeleBREX) 200 MG Capsule ??? fluticasone (FLONASE) 50 MCG/ACT Suspension ??? folic acid (FOLVITE) 1 MG Tablet ??? gabapentin (NEURONTIN) 600 MG Tablet ??? metoprolol tartrate (LOPRESSOR) 25 MG Tablet ??? omeprazole (PriLOSEC) 40 MG CAPSULE DELAYED RELEASE ??? traMADol (ULTRAM) 50 MG Tablet I educated Lexi regarding diagnoses and plan of care. She verbalizes understanding and will call the office if situation changes. Voice recognition software was utilized in this dictation. Despite proof reading, typographical errors and/or content errors may have occurred. By: Tim Altman MD 12/30/2021 11:13 AM CDT documented in this encounter Plan of Treatment Upcoming Encounters Date Type Department Care Team (Late st Contact Info) Description 06/30/2024 10:00 AM HOSPITAL CARRIER [facility] [address] [place] [address] Raul Young MD [address] [place] [address] Brandi Coffey, PT [place] Discharge Disposition: Discharged to home or Selfcare 08/31/2024 9:30 AM CDT Office Visit [facility] Group - Internal Medicine - [place] [address] [place] [phone] Tim Altman MD [address] [place] [address] documented as of this encounter Visit Diagnoses Diagnosis Essential hypertension, benign- Primary Other hyperlipidemia GERD without esophagitis Esophageal reflux Allergic rhinitis due to other allergic trigger, unspecified seasonality Other specified rheumatoid arthritis, multiple sites (HCC) documented in this encounter Additional Health Concerns Assessment Noted Time PHQ-9 Depression Total Score: 0 06/18/19 21 3:00 PM HOSPITAL CARRIER documented as of this encounter Care Teams Chief Mechanical Officer Relationship Specialty Start Date End Date Tim Altman MD [address] [place] [address] PCP - General Internal Medicine 12/03/15 documented as of this encounter
--- OUTSIDE RECORDS SUMMARY | 2024-06-17 14:48 | XMS_ITS | Encounter Summary ---
Author Organization [facility] Address [address] [place] [address] Phone Care Team Providers Care Laundry Machine Mechanic Name Role Phone Tim Altman MD Primary Care Provider [phone]- [phone] Reason for Visit * Reason Comments Medication Refill Encounter Details Date Type Department Care Team (Late st Contact Info) Description 05/29/2022 Refill [facility] - Internal Medicine - [place] [address] [place] [address] Tim Altman MD [address] [place] [address] Medication Refill Social History Tobacco [...] Telephone Encounter - Berenice Davis RN - 05/29/2022 11:19 AM MED CARE MANAGER Medication(s) refilled and signed [facility] Medication Refill Standing Order for Pediatricand Adult Patients. Requested Prescriptions Pending Prescriptions Disp Refills ??? omeprazole (PriLOSEC) 40 MG CAPSULE DELAYED RELEASE [Pharmacy Med Name: OMEPRAZOLE 40MG CAPSULEDR] 90 Capsule 1 Sig: TAKE ONE CAPSULE BY MOUTH DAILY Proton Pump Inhibitors Protocol Passed - 05/29/2022 11:03 AM Passed - Visit with relevant provider in past 12 months or upcoming 90 days Recent Visits Date Type Provider Dept 01/14/22 Office Visit Tim Altman MD [facility] [place] 12/30/21 Telemedicine Tim Altman MD [facility] [place] 06/20/21 [facility] [place] Showing recent visits within past 365 days and meeting all other requirements Future Appointments Date Type Provider Dept 07/09/22 Appointment Tim Altman MD [facility] [place] Showing future appointments within next 90 days and meeting all other requirements CARE MANAGER documented in this encounter Plan of Treatment Upcoming Encounters Date Type Department Care Team (Late st Contact Info) Description 06/30/2024 10:00 AM MED CARE MANAGER Physical Therapy [facility] [address] [place] [address] Raul Young MD [address] [place] [address] Brandi Coffey, PT [place] Discharge Disposition: Discharged to home or Selfcare 08/31/2024 9:30 AM CDT Office Visit [facility] - Internal Medicine - [place] [address] [place] [address] Tim Altman MD [address] [place] [address] documented as of this encounter Visit Diagnoses Not on filedocumented in this encounter Additional Health Concerns Assessment Noted Time PHQ-9 Depression Total Score: 0 06/18/19 21 3:00 PM MED CARE MANAGER documented as of this encounter Care Teams Laundry Machine Mechanic Relationship Specialty Start Date End Date Tim Altman MD [address] [place] [address] PCP - General Internal Medicine 12/03/15 documented as of this encounter
--- OUTSIDE RECORDS SUMMARY | 2024-06-17 14:48 | XMS_ITS | Encounter Summary ---
Author Organization [facility] Address [address] [place] [address] Phone Care Team Providers Care Retail Product Demo Specialist Name Role Phone Tim Altman MD Primary Care Provider Encounter Details Date Type Department Care Team (Late st Contact Info) Description 01/06/2022 Telephone [facility] - Internal Medicine - [place] [address] [place] [address] Tim Altman MD [address] [facility] [place] [address] Social History Tobacco Use Types Packs/Day Years Used Date Smoking Tobacco: Former Cigarettes Q uit: 07/23/1969 Smokeless Tobacco: Never Alcohol Use Standard Drinks/Week Comments Not Currently 0 (1 standard drink = 0.6 oz pur e alcohol) PHQ-2 Answer Date Recorded Total Score - Questions 1-9 0 0 11/2021 Sexually Active Control Partners Comments [...] encounter Miscellaneous Notes * Telephone Encounter - Altman, Tmi K, MD - 01/06/2022 10:36 AM CDT Noted * Telephone Encounter - RonalSeptember - 01/06/2022 10:10 AM CDT Patient wanted to let you know that both her and Carlitos have the Covid, saw Dr. Pierson at Urgent care over the weekend and was prescribed Paxlovid documented in this encounter Plan of Treatment Upcoming Encounters Date Type Department Care Team (Late st Contact Info) Description 06/30/2024 10:00 AM TICKET CLERK [facility] [address] [place] [address] Raul Young MD [address] [place] [address] Brandi Coffey, PT [place] Discharge Disposition: Discharged to home or Selfcare 08/31/2024 9:30 AM CDT Office Visit [facility] Medical Group - Internal Medicine - [place] [address] [place] [phone] Tim Altman MD [address] [place] [address] documented as of this encounter Visit Diagnoses Not on filedocumented in this encounter Additional Health Concerns Infection Onset Date Last Indicated Resolved Time COVID - 19 Confirmed 01/03/2022 01/03/2022 022 12:16 AM CDT Assessment Noted Time PHQ-9 Depression Total Score: 0 06/18/19 21 3:00 PM TICKET CLERK documented as of this encounter Care Teams Retail Product Demo Specialist Relationship Specialty Start Date End Date Tim Altman MD [address] [place] [address] PCP - General Internal Medicine 12/03/15 documented as of this encounter
--- OUTSIDE RECORDS SUMMARY | 2024-06-17 14:48 | XMS_ITS | Encounter Summary ---
Author Organization [facility] Address [address] [place] [address] Phone Care Team Providers Care Security Monitor Name Role Phone Tim Altman MD Primary Care Provider Reason for Visit * Reason Onset Date Comments Results 09/02/2022 Encounter Details Date Type Department Care Team (Late st Contact Info) Description 09/02/2022 Telephone [facility] - [place] [address] [place] [address] Tim Altman MD [address] [place] [address] Results Social History Tobacco Use [...] Telephone Encounter - Doris Babb CMA - 09/03/2022 2:51 PM CDT Spoke to patient and gave mammogram results. * Telephone Encounter - Doris Babb CMA - 09/03/2022 2:35 PM CDT LMOM to call office. * Telephone Encounter - Courtney Guzman RN - 09/02/2022 9:56 AM CDT ----- Message from Sangita Best, PAC sent at 08/29/2022 3:44 PM CDT ----- IMPRESSION: BI-RAD 1 NEGATIVE There is no mammographic evidence of malignancy. A 1 year screening mammogram is recommended. A letter will be sent to the patient with these results. documented in this encounter Plan of Treatment Upcoming Encounters Date Type Department Care Team (Late st Contact Info) Description 06/30/2024 10:00 AM HAZARDOUS MATERIALS DRIVER Physical Therapy [facility] at [facility] [address] [facility], [facility] [address] [place] [address] Raul Young MD [address] [place] [address] Brandi Coffey, PT [place] Discharge Disposition: Discharged to home or Selfcare 08/31/2024 9:30 AM CDT Office Visit [facility] Medical Group - Internal Medicine [place] [address] [place] [address] Tim Altman MD [address] [place] [address] documented as of this encounter Visit Diagnoses Not on filedocumented in this encounter Additional Health Concerns Assessment Noted Time PHQ-9 Depression Total Score: 0 06/18/19 21 3:00 PM HAZARDOUS MATERIALS DRIVER documented as of this encounter Care Teams Security Monitor Relationship Specialty Start Date End Date Tim Altman MD [address] [place] [address] PCP - General Internal Medicine 12/03/15 documented as of this encounter
--- OUTSIDE RECORDS SUMMARY | 2024-06-17 14:48 | XMS_ITS | Encounter Summary ---
Author Organization [facility] Address [address] [place] [address] Phone Care Team Providers Care Store Administrative Assistant Name Role Phone Tim Altman MD Primary Care Provider [phone]- [phone] Reason for Visit * Reason Comments Medication Refill Encounter Details Date Type Department Care Team (Late st Contact Info) Description 05/19/2022 Refill [facility] - Internal Medicine - [place] [address] [place] [address] Tim Altman MD [address] [place] [address] Medication Refill Social History Tobacco [...] Telephone Encounter - Berenice Davis RN - 05/19/2022 1:34 PM CST Medication(s) [facility]illed and [facility] Medication Refill Standing Order for Pediatricand Adult Patients. Requested Prescriptions Pending Prescriptions Disp Refills ??? omeprazole (PriLOSEC) 40 MG CAPSULE DELAYED RELEASE [Pharmacy Med Name: OMEPRAZOLE 40MG CAPSULEDR] 90 Capsule 1 Sig: TAKE ONE CAPSULE BY MOUTH DAILY Proton Pump Inhibitors Protocol Passed - 05/19/2022 1:19 PM Passed - Visit with relevant provider in past 12 months or upcoming 90 days Recent Visits Date Type Provider Dept 01/14/22 Office Visit Tim Altman MD [facility] [place] 12/30/21 Telemedicine Tim Altman MD [facility] [place] 06/20/21 [facility] [place] Show[facility] recent visits within past 365 days and meeting all other requirements Future Appointments Date Type Provider Dept 07/09/22 Appointment [facility] [place] Show[place] future appointments within next 90 days and meeting all other requirements LE NEEDLE OPERATOR LOCKSTITCH documented in this encounter Plan of Treatment Upcoming Encounters Date Type Department Care Team (Late st Contact Info) Description 06/30/2024 10:00 AM DOUBLE NEEDLE OPERATOR LOCKSTITCH Physical Therapy [facility] [address] [place] [address] Raul Young MD [address] [place] [address] Brandi Coffey, PT [place] Discharge Disposition: Discharged to home or Selfcare 08/31/2024 9:30 AM CDT Office Visit [facility] - Internal Medicine - [place] [address] [place] [place] [address] Tim Altman MD [address] [place] [address] documented as of this encounter Visit Diagnoses Not on filedocumented in this encounter Additional Health Concerns Assessment Noted Time PHQ-9 Depression Total Score: 0 06/18/19 21 3:00 PM DOUBLE NEEDLE OPERATOR LOCKSTITCH documented as of this encounter Care Teams Store Administrative Assistant Relationship Specialty Start Date End Date Tim Altman MD [address] [place] [address] PCP - General Internal Medicine 12/03/15 documented as of this encounter
--- OUTSIDE RECORDS SUMMARY | 2024-06-17 14:48 | XMS_ITS | Encounter Summary ---
Author Organization [facility] Address [address] [place] [address] Phone Care Team Providers Care Fuller Brush Man Name Role Phone Tim Altman MD Primary Care Provider Sanaz Mendoza RN Unavailable Unavailable Reason for Visit * Reason Comments Medication Refill Encounter Details Date Type Department Care Team (Late st Contact Info) Description 04/04/2022 Refill [facility] - [place] [address] [facility] [address] Tim Altman MD [address] [place] [address] Medication Refill Social History Tobacco [...] Telephone Encounter - Courtney Guzman RN - 04/07/2022 3:59 PM CDT duplicate documented in this encounter Plan of Treatment Upcoming Encounters Date Type Department Care Team (Late st Contact Info) Description 06/30/2024 10:00 AM AUDIO VISUAL AIDE Physical Therapy [facility] at [facility] [address] [place] [address] Raul Young MD [address] [place] [address] Brandi Coffey, PT [place] Discharge Disposition: Discharged to home or Selfcare 08/31/2024 9:30 AM CDT Office Visit [facility] Medical Group - Internal Medicine [place] [address] [place] [address] Tim Altman MD [address] [place] [address] documented as of this encounter Visit Diagnoses Not on filedocumented in this encounter Additional Health Concerns Assessment Noted Time PHQ-9 Depression Total Score: 0 06/18/19 21 3:00 PM AUDIO VISUAL AIDE documented as of this encounter Care Teams Fuller Brush Man Relationship Specialty Start Date End Date Tim Altman MD [address] [place] [address] PCP - General Internal Medicine 12/03/15 Sanaz Mendoza, RN [place] Nurse Field Artillery Operations Man 03/09/24 03/09/24 documented as of this encounter
--- OUTSIDE RECORDS SUMMARY | 2024-06-17 14:49 | XMS_ITS | Encounter Summary ---
Author Organization [facility] Care Team Providers Care Jinrikisha Driver Name Role Phone Tim Altman MD Primary Care Provider Encounter Details Date Type Department Care Team (Latest Contact Info) Description 12/18/2020 Travel Social History Tobacco Use Types Packs/Day Years Used Date Smoking Tobacco: Former Cigarettes Q uit: 07/23/1969 Smokeless Tobacco: Never PHQ-2 Answer Date Recorded Total Score - Questions 1-9 0 /0 09/2020 Comments No Sex and Gender Information Value Date Recorded Sex Assigned at Not on file Legal Sex Female 7:42 PM CDT Gender Identity Not on file Sexual Orientation Not on file COVID-19 Exposure Response Date Recorded In the last month, have you been in contact with someone who was confirmed or suspected to have Coronavirus / COVID-19? No / Unsure 12/18/2020 9:15 AM CDT documented as of this encounter Plan of Treatment Upcoming Encounters Date Type Department Care Team (Late st Contact Info) Description 06/30/2024 10:00 AM PUBLIC HEALTH AIDES TEACHER Physical Therapy [facility] at [facility] [address] [place] [address] Raul Young MD [address] [place] [address] Brandi Coffey, PT [place] Discharge Disposition: Discharged to home or Selfcare 08/31/2024 9:30 AM CDT [facility] Internal [facility] - [place] [address] [place] [address] Tim Altman MD [address] [place] [address] documented as of this encounter Visit Diagnoses Not on filedocumented in this encounter Additional Health Concerns Assessment Noted Time PHQ-9 Depression Total Score: 0 06/18/19 21 3:00 PM PUBLIC HEALTH AIDES TEACHER documented as of this encounter Care Teams Jinrikisha Driver Relationship Specialty Start Date End Date Tim Altman MD [address] [place] [address] PCP - General Internal Medicine 12/03/15 documented as of this encounter
--- OUTSIDE RECORDS SUMMARY | 2024-06-17 14:49 | XMS_ITS | Encounter Summary ---
Author Organization [facility] Address [address] [place] [address] Phone Care Team Providers Care Splunk Dashboard Developer Name Role Phone Tim Altman MD Primary Care Provider Reason for Visit * Reason Comments Medication Refill Encounter Details Date Type Department Care Team (Late st Contact Info) Description 04/08/2021 Refill [facility] Group - Internal Medicine - [place] [address] [place] [address] Tim Altman MD [address] [place] [address] Medication Refill Social History Tobacco Use Types Packs/Day Years Used Date Smoking Tobacco: Former Cigarettes Q uit: 07/23/1969 Smokeless Tobacco: Never Alcohol Use Standard Drinks/Week Comments Not Currently 0 (1 standard drink = 0.6 oz pur e alcohol) PHQ-2 Answer Date Recorded Total Score - Questions 1-9 0 0 09/2020 Sexually Active Control Partners Comments Not Currently [...] have Coronavirus / COVID-19? No / Unsure 03/12/2021 2:28 PM CDT documented as of this encounter Miscellaneous Notes * Telephone Encounter - Berenice Davis RN - 04/08/2021 11:53 AM CDT Medication(s) [facility] Medication Refill Standing Order for Pediatricand Adult Patients. Requested Prescriptions Pending Prescriptions Disp Refills ??? omeprazole (PriLOSEC) 40 MG CAPSULE DELAYED RELEASE [Pharmacy Med Name: OMEPRAZOLE [address] CAP40 Capsule] 90 Capsule 1 Sig: TAKE ONE CAPSULE BY MOUTH DAILY Proton Pump Inhibitors Protocol Passed - 04/08/2021 9:22 AM Passed - Visit with relevant provider in past 12 months or upcoming 90 days Recent Visits Date Type Provider Dept 03/12/21 Office Visit Tim Altman MD [facility] [place] 12/18/20 Office Visit Tim Altman MD [facility] [place] 06/18/20 Office Visit Tim Altman MD [facility] [place] 05/22/20 Office Visit Tim Altman MD [facility] [place] Showing recent visits within past 365 days and meeting all other requirements Future Appointments Date Type Provider Dept 06/20/21 Appointment Tim Altman MD [facility] [place] Showing future appointments within next 90 days and meeting all other requirements ??? metoprolol tartrate (LOPRESSOR) 25 MG Tablet [Pharmacy Med Name: METOPROLOL TART 25MG TAB 25 Tablet] 180 Tablet 0 Sig: TAKE 1 TABLET BY MOUTH TWICE A DAY Beta-Blockers Protocol Passed - 04/08/2021 9:22 AM Passed - BP on record in the past year Clinician-entered: BP Readings from Last 3 Encounters: 03/12/21 134/72 12/18/20 126/82 06/18/20 124/64 Patient-entered: No data recorded Passed - Visit with relevant provider in past 12 months or upcoming 90 days Recent Visits Date Type Provider Dept 03/12/21 Office Visit Tim Altman MD [facility] [place] 12/18/20 Office Visit Tim Altman MD [facility] [place] 06/18/20 Office Visit Tim Altman MD [facility] [place] 05/22/20 Office Visit Tim Altman MD [facility] [place] Showing recent visits within past 365 days and meeting all other requirements Future Appointments Date Type Provider Dept 06/20/21 Appointment Tim Altman MD [facility] [place] Showing future appointments within next 90 days and meeting all other requirements documented in this encounter Plan of Treatment Upcoming Encounters Date Type Department Care Team (Late st Contact Info) Description 06/30/2024 10:00 AM REVENUE LIAISON Physical Therapy [facility] [address] [place] [address] Raul Young MD [address] [place] [address] Brandi Coffey, PT [place] Discharge Disposition: Discharged to home or Selfcare 08/31/2024 9:30 AM CDT Office Visit [facility] Group - Internal Medicine - [place] [address] [place] [phone] Tim Altman MD [address] [place] [address] documented as of this encounter Visit Diagnoses Not on filedocumented in this encounter Additional Health Concerns Assessment Noted Time PHQ-9 Depression Total Score: 0 06/18/19 21 3:00 PM REVENUE LIAISON documented as of this encounter Care Teams Splunk Dashboard Developer Relationship Specialty Start Date End Date Tim Altman MD [address] [place] [address] PCP - General Internal Medicine 12/03/15 documented as of this encounter
--- OUTSIDE RECORDS SUMMARY | 2024-06-17 14:49 | XMS_ITS | Encounter Summary ---
Author Organization [facility] Care Team Providers Care Patient Clerical Assistant Name Role Phone Tim Altman MD Primary Care Provider Encounter Details Date Type Department Care Team (Latest Contact Info) Description 03/12/2021 Travel Social History Tobacco Use Types Packs/Day Years Used Date Smoking Tobacco: Former Cigarettes Q uit: 07/23/1969 Smokeless Tobacco: Never Alcohol Use Standard Drinks/Week Comments Not Currently 0 (1 standard drink = 0.6 oz pur e alcohol) PHQ-2 Answer Date Recorded Total Score - Questions 1-9 0 09/2020 Sexually Active Control Partners Comments [...] st Contact Info) Description 06/30/2024 10:00 AM DIESEL TRUCK DRIVER Physical Therapy [facility] Rehab at [facility] [address] [place] [address] Raul Young MD [address] [place] [address] Brandi Coffey, PT [place] Discharge Disposition: Discharged to home or Selfcare 08/31/2024 9:30 AM CDT Office Visit [facility] [address] [place] [phone] Tim Altman MD [address] [place] [address] documented as of this encounter Visit Diagnoses Not on filedocumented in this encounter Additional Health Concerns Assessment Noted Time PHQ-9 Depression Total Score: 0 06/18/19 21 3:00 PM DIESEL TRUCK DRIVER documented as of this encounter Care Teams Patient Clerical Assistant Relationship Specialty Start Date End Date Tim Altman MD [address] [place] [address] PCP - General Internal Medicine 12/03/15 documented as of this encounter
--- OUTSIDE RECORDS SUMMARY | 2024-06-17 14:49 | XMS_ITS | Encounter Summary ---
Author Organization [facility] Address [address] [place] [address] Phone Care Team Providers Care Diversity Specialist Name Role Phone Tim Altman MD Primary Care Provider [phone] Reason for Visit * Reason Comments Medication Refill Encounter Details Date Type Department Care Team (Late st Contact Info) Description 07/12/2021 Refill [facility] Medical Group - Internal Medicine - [place] [address] [place] [address] Tim Altman MD [address] [place] [address] Medication Refill Social History Tobacco [...] have Coronavirus / COVID-19? No / Unsure 06/20/2021 3:26 PM UTILITY BAGGER documented as of this encounter Miscellaneous Notes * Telephone Encounter - Berenice Davis RN - 07/15/2021 10:32 AM UTILITY BAGGER Medication(s) refilled and signed per [facility] Chronic Medication Refill Standing Order for Pediatricand Adult Patients. Requested Prescriptions Pending Prescriptions Disp Refills ??? metoprolol tartrate (LOPRESSOR) 25 MG Tablet [Pharmacy Med Name: METOPROLOL TART 25MG TAB 25 Tablet] 180 Tablet 0 Sig: TAKE 1 TABLET BY MOUTH TWICE A DAY Beta-Blockers Protocol Passed - 07/12/2021 6:08 PM Passed - BP on record in the past year Clinician-entered: BP Readings from Last 3 Encounters: 06/20/21 112/66 03/12/21 134/72 12/18/20 126/82 Patient-entered: No data recorded Passed - Visit with relevant provider in past 12 months or upcoming 90 days Recent Visits Date Type Provider Dept 06/20/21 [facility] 03/12/21 Office Visit Tim Altman MD [facility] 12/18/20 Office Visit Tim Altman MD [facility] Showing recent visits within past 365 days and meeting all other requirements Future Appointments No visits were found meeting these conditions. Showing future appointments within next 90 days and meeting all other requirements ITY BAGGER documented in this encounter Plan of Treatment Upcoming Encounters Date Type Department Care Team (Late st Contact Info) Description 06/30/2024 10:00 AM UTILITY BAGGER Physical Therapy [facility] Rehab at [facility] [address] [place] [address] Raul Young MD [address] [place] [address] rBandi Coffey, PT [place] Discharge Disposition: Discharged to home or Selfcare 08/31/2024 9:30 AM CDT Office Visit [facility] Medical Group - Internal Medicine - [place] [address] [place] [address] Tim Altman MD [address] [place] [address] documented as of this encounter Visit Diagnoses Not on filedocumented in this encounter Additional Health Concerns Assessment Noted Time PHQ-9 Depression Total Score: 0 06/18/19 21 3:00 PM UTILITY BAGGER documented as of this encounter Care Teams Diversity Specialist Relationship Specialty Start Date End Date Tim Altman MD [address] [place] [address] PCP - General Internal Medicine 12/03/15 documented as of this encounter
--- OUTSIDE RECORDS SUMMARY | 2024-06-17 14:49 | XMS_ITS | Encounter Summary ---
Author Organization [facility] Address [address] [place] [address] Phone Care Team Providers Care Assistant Food Service Manager Name Role Phone Tim Altman MD Primary Care Provider Encounter Details Date Type Department Care Team (Late st Contact Info) Description 04/30/2020 Telephone [facility] - [place] [address] [place] [address] Tim Altman MD [address] [place] [address] Social History Tobacco Use Types Packs/Day Years Used Date Smoking Tobacco: Never Assessed Comments No Sex and Gender Information Value Date Recorded Sex Assigned at Not on file Legal Sex Female 7:42 PM CDT Gender Identity Not on file Sexual Orientation Not on file documented as of this encounter Miscellaneous Notes * Telephone Encounter - Tim Altman MD - 04/30/2020 4:33 PM ROUTER OPERATOR Doxycycline 100 mg twice a day for 10 days prescription sent ER OPERATOR * Telephone Encounter - Berenice Davis RN - 04/30/2020 4:02 PM CST Patient came into office with and was complaining of her elbow hurting. Upon examination itwas noted that elbow was warm and painful it appears to have a yellow color in the center as if a bite or scratch. Patient wants to know if she could possibly get an antibiotic ER OPERATOR documented in this encounter Plan of Treatment Upcoming Encounters Date Type Department Care Team (Late st Contact Info) Description 06/30/2024 10:00 AM ROUTER OPERATOR Physical Therapy [facility] [address] [place] [address] Raul Young MD [address] [place] [address] Brandi Coffey, PT [place] Discharge Disposition: Discharged to home or Selfcare 08/31/2024 9:30 AM CDT Office Visit [facility] Medical Group - Internal Medicine - [place] [address] [place] [phone] Tim Altman MD [address] [place] [address] documented as of this encounter Visit Diagnoses Not on filedocumented in this encounter Care Teams Assistant Food Service Manager Relationship Specialty Start Date End Date Tim Altman MD [address] [place] [address] PCP - General Internal Medicine 12/03/15 documented as of this encounter
--- OUTSIDE RECORDS SUMMARY | 2024-06-17 14:49 | XMS_ITS | Encounter Summary ---
Author Organization [facility] Address [address] [place] [address] Phone Care Team Providers Care Casket Assembler Metal Name Role Phone Tim Altman MD Primary Care Provider [phone] Reason for Visit * Reason Comments Medication Refill Encounter Details Date Type Department Care Team (Late st Contact Info) Description 05/06/2021 Refill [facility] Medical Group - Internal Medicine - [place] [address] [place] [address] Tim Altman MD [address] [place] [address] Medication Refill Social History Tobacco [...] Telephone Encounter - Berenice Davis RN - 05/06/2021 11:43 AM WAXER Medication failed the protocol, provider to review and approve the medication order if appropriate. Requested Prescriptions Pending Prescriptions Disp Refills fluticasone (FLONASE) 50 MCG/ACT Suspension [Pharmacy Med Name: FLUTICASONE PROP 50 MCG SPR 50 JUANY]16 g 0 Sig: USE 1 SPRAY(S) EACH NOSTRIL TWO TIMES A DAY DIRECTED BY PHYSICIAN Nasal Steroids Protocol Failed - 05/06/2021 11:19 AM Failed - Active on medication list Passed - Visit with relevant provider in past 12 months or upcoming 90 days Recent Visits Date Type Provider Dept 03/12/21 Office Visit Tim Altman MD [facility] [place] 12/18/20 Office Visit Tim Altman MD [facility] [place] 06/18/20 Office Visit Tim Altman MD [facility] [place] 05/22/20 Office Visit Tim Altman MD [facility] [place] Showing recent visits within past 365 days and meeting all other requirements Future Appointments Date Type Provider Dept 06/20/21 Appointment Tim Altman MD [facility] [place] Showing future appointments within next 90 days and meeting all other requirements R documented in this encounter Plan of Treatment Upcoming Encounters Date Type Department Care Team (Late st Contact Info) Description 06/30/2024 10:00 AM WAXER Physical Therapy [facility] Rehab at [facility] [address] [facility] [place] [address] Raul Young MD [address] [place] [address] Brandi Coffey, PT [place] Discharge Disposition: Discharged to home or Selfcare 08/31/2024 9:30 AM CDT Office Visit [facility] Medical Group - Internal Medicine - [place] [address] [place] [place] [address] Tim Altman MD [address] [place] [address] documented as of this encounter Visit Diagnoses Not on filedocumented in this encounter Additional Health Concerns Assessment Noted Time PHQ-9 Depression Total Score: 0 06/18/19 21 3:00 PM WAXER documented as of this encounter Care Teams Casket Assembler Metal Relationship Specialty Start Date End Date Tim Altman MD [address] [place] [address] PCP - General Internal Medicine 12/03/15 documented as of this encounter
--- OUTSIDE RECORDS SUMMARY | 2024-06-17 14:49 | XMS_ITS | Encounter Summary ---
Author Organization [facility] Address [address] [place] [address] Phone Care Team Providers Care Lifeguard Name Role Phone Tim Altman MD Primary Care Provider Reason for Visit * Reason Comments Medication Refill Encounter Details Date Type Department Care Team (Late st Contact Info) Description 01/05/2021 [facility]ill [facility] - [place] [address] [place] [address] Tim Altman MD [address] [place] [address] Medication Refill Social History Tobacco Use Types Packs/Day Years Used Date Smoking Tobacco: Former Cigarettes Q uit: 07/23/1969 Smokeless Tobacco: Never PHQ-2 Answer Date Recorded Total Score - Questions 1-9 0 0 09/2020 Comments No Sex and Gender Information [...] Telephone Encounter - Berenice Davis RN - 01/07/2021 8:07 AM CDT Medication(s) refilled and signed per [facility] Chronic Medication Refill Standing Order for Pediatricand Adult Patients. Requested Prescriptions Pending Prescriptions Disp Refills ??? metoprolol tartrate (LOPRESSOR) 25 MG Tablet [Pharmacy Med Name: METOPROLOL TART 25MG TAB 25 Tablet] 180 Tablet 0 Sig: TAKE 1 TABLET BY MOUTH TWICE A DAY Beta-Blockers Protocol Passed - 01/05/2021 9:17 AM Passed - BP on record in the past year Clinician-entered: BP Readings from Last 3 Encounters: 12/18/20 126/82 06/18/20 124/64 05/22/20 118/64 Patient-entered: No data recorded Passed - Visit with relevant provider in past 12 months or upcoming 90 days Recent Visits Date Type Provider Dept 12/18/20 [facility] [place] 06/18/20 Office Visit Tim Altman MD [facility] [place] 05/22/20 Office Visit Tim Altman MD [facility] [place] Showing recent visits within past 365 days and meeting all other requirements Future Appointments No visits were found meeting these conditions. Showing future appointments within next 90 days and meeting all other requirements documented in this encounter Plan of Treatment Upcoming Encounters Date Type Department Care Team (Late st Contact Info) Description 06/30/2024 10:00 AM LIVESTOCK BRANDS INSPECTOR Physical Therapy [facility] Rehab at [facility] [address] [place] [address] Raul Young MD [address] [place], [place] [id number] Brandi Coffey, PT [place] Discharge Disposition: Discharged to home or Selfcare 08/31/2024 9:30 AM CDT Office Visit [facility] Medical Group - Internal Medicine - [place] [address] [place] [address] Tim Altman MD [address] [place] [address] documented as of this encounter Visit Diagnoses Not on filedocumented in this encounter Additional Health Concerns Assessment Noted Time PHQ-9 Depression Total Score: 0 06/18/19 21 3:00 PM LIVESTOCK BRANDS INSPECTOR documented as of this encounter Care Teams Lifeguard Relationship Specialty Start Date End Date Tim Altman MD [address] [place] [address] PCP - General Internal Medicine 12/03/15 documented as of this encounter
--- OUTSIDE RECORDS SUMMARY | 2024-06-17 14:49 | XMS_ITS | Encounter Summary ---
Author Organization [facility] Address [address] [place] [address] Phone Care Team Providers Care Explosives Engineer Name Role Phone Tim Altman MD Primary Care Provider Reason for Visit * Reason Comments Medication Refill Encounter Details Date Type Department Care Team (Late st Contact Info) Description 09/10/2020 Refill [facility] - [place] [address] [place] [address] iTm Altman MD [address] [place] [address] Medication Refill Social History Tobacco Use Types Packs/Day Years Used Date Smoking Tobacco: Former Cigarettes Q uit: 07/23/1969 Smokeless Tobacco: Never PHQ-2 Answer Date Recorded Total Score - Questions 1-9 0 09/2020 Comments No Sex and Gender Information Value Date Recorded Sex Assigned at Not on file Legal Sex Female 7:42 PM CDT Gender Identity Not on file Sexual Orientation Not on file documented as of this encounter Miscellaneous Notes * Telephone Encounter - Berenice Davis RN - 09/10/2020 9:42 AM CDT Please review and sign. documented in this encounter Plan of Treatment Upcoming Encounters Date Type Department Care Team (Late st Contact Info) Description 06/30/2024 10:00 AM RETAIL SHIFT LEADER [facility] [address] [place] [address] Raul Young MD [address] [place] [address] Brandi Coffey, PT [place] Discharge Disposition: Discharged to home or Selfcare 08/31/2024 9:30 AM CDT [facility] - [place] [address] [place] [phone] Tim Altman MD [address] [place] [address] documented as of this encounter Visit Diagnoses Not on filedocumented in this encounter Additional Health Concerns Assessment Noted Time PHQ-9 Depression Total Score: 0 06/18/19 21 3:00 PM RETAIL SHIFT LEADER documented as of this encounter Care Teams Explosives Engineer Relationship Specialty Start Date End Date Tim Altman MD [address] [place] [address] PCP - General Internal Medicine 12/03/15 documented as of this encounter
--- OUTSIDE RECORDS SUMMARY | 2024-06-17 14:49 | XMS_ITS | Encounter Summary ---
Author Organization [facility] Address [address] [place] [address] Phone Care Team Providers Care Organizational Psychologist Name Role Phone Tim Altman MD Primary Care Provider [phone] Reason for Referral * Radiology Services (Routine) - Closed Specialty Diagnoses / Procedures Referred By Contac t Referred To Contact Radiology Diagnoses Screening for osteoporosis Menopause Procedures YULIET BONE DENSITOMETRY AXIAL SKELETON Marilyn Campos, LISA, INTEGRATION MANAGER Phone: tel: fax: Referral ID Status Reason Start Date Expiration Date Visits Re quested Visits Authorized [id number] Closed 11/29/2020 1 1 Reason for Visit * Radiology Services (Routine) - Closed Specialty Diagnoses / Procedures Referred By Contac t Referred To Contact Radiology Diagnoses Screening for osteoporosis Menopause Procedures YULIET BONE DENSITOMETRY AXIAL SKELETON Marilyn Campos, LISA, INTEGRATION MANAGER Phone: tel: fax: Referral ID Status Reason Start Date Expiration Date Visits Re quested Visits Authorized [id number] Closed 11/29/2020 1 1 Encounter Details Date Type Department Care Team (Latest Contact Info) Description 12/18/2020 9:30 AM CDT - 12/18/2020 11:59 PM CDT Hospital Encounter [facility] Mammography [address] [place] [address] Marilyn Campos M, SENIOR MECHANICAL TECHNICIAN, INTEGRATION MANAGER [address] [place] [address] Discharge Disposition: Discharged to home or Selfcare [...] 04/06/2020 traMADol (ULTRAM) 50 MG Tablet 04/16/2020 carbidopa-levodop a CR (SINEMET CR) 50-200 MG Tablet Controlled Release 05/14/2020 09/03/2023 folic acid (FOLVITE) 1 MG Tablet 04/14/2020 01/14/2022 methotrexate 2.5 MG Tablet 04/06/2020 06/20/2021 metoprolol tartrate (LOPRESSOR) 25 MG Tablet TAKE 1 TABLET BY MOUTH TWICE A DAY 180 Tablet 09/10/2020 01/07/2021 omeprazole (PriLOSEC) 40 MG CAPSULE DELAYED RELEASE TAKE ONE CAPSULE BY MOUTH DAILY 90 Capsule 1 11/13/2020 04/08/2021 documented as of this encounter Plan of Treatment Upcoming Encounters Date Type Department Care Team (Late st Contact Info) Description 06/30/2024 10:[address] Physical Therapy [facility] Rehab at [facility] [address] [place] [address] Raul Young MD [address] [place] [address] Brandi Coffey, PT [place] Discharge Disposition: Discharged to home or Selfcare 08/31/2024 9:30 AM CDT [facility] - [place] [address] [facility] [place] [phone] Tim Altman MD [address] [address] [facility] [address] [facility] [place] [address] documented as of this encounter Procedures Procedure Name Priority Date/Time Associated Diagnosis Comments [facility] BONE DENSITOMETRY AXIAL SKELETON Routine 12/18/2020 10:10 AM CDT Screening for osteoporosis Menopause documented in this encounter Results * [facility] BONE DENSITOMETRY AXIAL SKELETON (12/18/2020 10:10 AM [...] old ??F with given history of screening. Farm Butcher/Model: ?? Sanera (S/N [id number]) CLINICAL INFORMATION: ??Current height: ??65 inches ? [...] signed by Reinaldo Silvestre M.D. AG: YADIRA D: ??12/18/2020 12:15 PM T: ??12/18/2020 12:15 PM Report ID: [id number] Reading Location: ??[id number] Procedure Note Reinaldo Silvestre MD - 12/18/2020 EXAM DESCRIPTION: YULIET BONE DENSITOMETRY AXIAL SKELETON REASON FOR STUDY: 65 y/o year old F with given history of screening. Farm Butcher/Model: Sanera (S/N [id number]) CLINICAL INFORMATION: Current height: 65 inches Maximum [...] signed by Reinaldo Silvestre M.D. AG: AG Report ID: [id number] Reading Location: [place] [address] IMPRESSION: Low bone mass. Fracture risk assessment [...] to Prevention and Treatment of Osteoporosis (http://www.nof.org/professionals/clinical-guidelines) us Marilyn Campos SENIOR MECHANICAL TECHNICIAN, INTEGRATION MANAGER IMG DEXA ORDERABLES Final Result documented in this encounter Visit Diagnoses Diagnosis Screening for osteoporosis Special screening for osteoporosis Menopause Symptomatic menopausal or female climacteric states documented in this encounter Additional Health Concerns Assessment Noted Time PHQ-9 Depression Total Score: 0 06/18/19 21 3:[address] documented as of this encounter Care Teams Organizational Psychologist Relationship Specialty Start Date End Date Tim Altman MD [address] [place] [address] PCP - General Internal Medicine 12/03/15 documented as of this encounter
--- OUTSIDE RECORDS SUMMARY | 2024-06-17 14:49 | XMS_ITS | Encounter Summary ---
Author Organization [facility] Address [address] [place] [address] Phone Care Team Providers Care Sack Maker Name Role Phone Tim Altman MD Primary Care Provider Reason for Visit * Reason Comments Medication Refill Encounter Details Date Type Department Care Team (Late st Contact Info) Description 06/13/2020 Refill [facility] - [place] [address] [place] [phone] Tim Altman MD [address] [place] [address] Medication Refill Social History Tobacco Use Types Packs/Day Years Used Date Smoking Tobacco: Former Cigarettes Q uit: 07/23/1969 Smokeless Tobacco: Never PHQ-2 Answer Date Recorded PHQ-2 Score 0 05/22/2020 Comments No Sex and Gender Information Value Date Recorded Sex Assigned at Not on file Legal Sex Female 7:42 PM CDT Gender Identity Not on file Sexual Orientation Not on file COVID-19 Exposure Response Date Recorded In the last month, have you been in contact with someone who was confirmed or suspected to have Coronavirus / COVID-19? No / Unsure 05/22/2020 11:19 AM FIELD INSPECTOR documented as of this encounter Miscellaneous Notes * Telephone Encounter - Berenice Davis RN - 06/13/2020 9:36 AM CST Please review and sign. D INSPECTOR documented in this encounter Plan of Treatment Upcoming Encounters Date Type Department Care Team (Late st Contact Info) Description 06/30/2024 10:00 AM FIELD INSPECTOR [facility] [address] [place] [address] Raul Young MD [address] [place] [address] Brandi Coffey, PT [place] Discharge Disposition: Discharged to home or Selfcare 08/31/2024 9:30 AM CDT Office Visit [facility] Medical Group - Internal Medicine [place] [address] [place] [phone] Tim Altman MD [address] [place] [address] documented as of this encounter Visit Diagnoses Not on filedocumented in this encounter Additional Health Concerns Assessment Noted Time PHQ-9 Depression Total Score: 0 05/22/20 20 1:00 PM FIELD INSPECTOR documented as of this encounter Care Teams Sack Maker Relationship Specialty Start Date End Date Tim Altman MD [address] [place] [address] PCP - General Internal Medicine 12/03/15 documented as of this encounter
--- OUTSIDE RECORDS SUMMARY | 2024-06-17 14:49 | XMS_ITS | Encounter Summary ---
Author Organization [facility] Address [address] [place] [address] Phone Care Team Providers Care Advertising Account Representative Name Role Phone Tim Altman MD Primary Care Provider Reason for Visit * Reason Onset Date Comments Medication Refill 02/07/2020 Encounter Details Date Type Department Care Team (Late st Contact Info) Description 02/07/2020 Refill [facility] - [place] [address] [place] [id number] Tim Altman MD [address] [facility] [place] [place] [address] Medication Refill Social History Tobacco Use Types Packs/Day Years Used Date Smoking Tobacco: Never Assessed Comments No Sex and Gender Information Value Date Recorded Sex Assigned at Not on file Legal Sex Female 7:42 PM CDT Gender Identity Not on file Sexual Orientation Not on file documented as of this encounter Miscellaneous Notes * Telephone Encounter - Berenice Davis RN - 02/07/2020 5:41 PM CDT Order pended documented in this encounter Plan of Treatment Upcoming Encounters Date Type Department Care Team (Late st Contact Info) Description 06/30/2024 10:00 AM DAM TENDER [facility] [address] [place] [address] Raul Young MD [address] [place] [address] Brandi Coffey, PT [place] Discharge Disposition: Discharged to home or Selfcare 08/31/2024 9:30 AM CDT Office Visit [facility] - Internal Medicine - [place] [address] [place] [address] Tim Altman MD [address] [place] [address] documented as of this encounter Visit Diagnoses Not on filedocumented in this encounter Care Teams Advertising Account Representative Relationship Specialty Start Date End Date Tim Altman MD [address] [place] [address] PCP - General Internal Medicine 12/03/15 documented as of this encounter
--- OUTSIDE RECORDS SUMMARY | 2024-06-17 14:49 | XMS_ITS | Encounter Summary ---
Author Organization [facility] Address [address] [place] [address] Phone Care Team Providers Care Childcare Provider Name Role Phone Tim Altman MD Primary Care Provider Reason for Visit * Reason Comments Medication Refill Encounter Details Date Type Department Care Team (Late st Contact Info) Description 11/13/2020 Refill [facility] - [place] [address] [place] [address] Tim Altman MD [address] [place] [address] Medication Refill Social History Tobacco [...] Telephone Encounter - Berenice Davis RN - 11/13/2020 2:42 PM CDT Please review and sign. documented in this encounter Plan of Treatment Upcoming Encounters Date Type Department Care Team (Late st Contact Info) Description 06/30/2024 10:00 AM BLUE CRABBER [facility] [address] [place] [address] Raul Young MD [address] [place] [address] Brandi Coffey, [place] Discharge Disposition: Discharged to home or Selfcare 08/31/2024 9:30 AM CDT [facility] - [place] [address] [place] [phone] Tim Altman MD [address] [place] [address] documented as of this encounter Visit Diagnoses Not on filedocumented in this encounter Additional Health Concerns Assessment Noted Time PHQ-9 Depression Total Score: 0 06/18/19 21 3:00 PM BLUE CRABBER documented as of this encounter Care Teams Childcare Provider Relationship Specialty Start Date End Date Tim Altman MD [address] [place] [address] PCP - General Internal Medicine 12/03/15 documented as of this encounter
--- OUTSIDE RECORDS SUMMARY | 2024-06-17 14:49 | XMS_ITS ---
Author Organization [facility] Address [address] [place] [address] Phone Care Team Providers Care Automated Teller Manager Name Role Phone Tim Altman MD Primary Care Provider Ambulatory Complex Care Management Status:Closed (Closed) Start date:03/09/2024 Enrollment reason:Identified as high-risk End date:03/09/2024 Close reason:Not eligible Related social drivers of health:Social Connections, Tobacco Use, Physical Activity Overview Complex Care Management Program Continued Care and Services Coordination
--- OUTSIDE RECORDS SUMMARY | 2024-06-17 14:49 | XMS_ITS | Encounter Summary ---
Author Organization [facility] Address [address] [place] [address] Phone Care Team Providers Care Vice President Of Compliance Name Role Phone Tim Altman MD Primary Care Provider [phone] Reason for Visit * Reason Comments Pain left elbow Encounter Details Date Type Department Care Team (Late st Contact Info) Description 05/22/2020 1:30 PM CLOSET ORGANIZER [facility] Visit [facility] - [place] [address] [place] [address] Tim Altman MD [address] [place] [address] Cellulitis of left elbow (Primary Dx) Discharge Disposition: Discharged to home [...] COVID-19? No / Unsure 05/22/2020 11:19 AM CLOSET ORGANIZER documented as of this encounter Last Filed Vital Signs Vital Sign Reading Time Taken Comments Blood Pressure 118/64 05/22/2020 1:23 PM CLOSET ORGANIZER Pulse 100 05/22/2020 1:23 PM CLOSET ORGANIZER Temperature 36.2 ??C (97.2 ??F) 05/22/2020 1:23 PM CS T Respiratory Rate - - Oxygen Saturation - - Inhaled Oxygen Concentration - - Weight 93.9 kg (207 lb) 05/22/2020 1:23 PM CLOSET ORGANIZER Height 162.6 cm (5' 4 ) 05/22/2020 1:23 PM CLOSET ORGANIZER Body Mass Index 35.53 05/22/2020 1:23 PM CLOSET ORGANIZER documented in this encounter Progress Notes * Doris Babb, COAL FEEDER OPERATOR - 05/22/2020 1:30 PM CST Lexi Jose Ramon Mcneil, 64 y.o., female is here for Pain (left elbow) Medication Refills: Patient reports/denies need for medication refills. Orders Pended: no Requested Prescriptions No prescriptions requested or ordered in this encounter Home Medications Medication Sig Start Date End Date Taking? Authorizing Provider carbidopa-levodopa CR (SINEMET CR) 50-200 MG Tablet Controlled Release 05/14/20 Yes Steffen Ballesteros MD celecoxib (CeleBREX) 200 MG Capsule 04/06/20 Yes Steffen Ballesteros MD folic acid (FOLVITE) 1 MG Tablet 04/14/20 Yes Steffen Ballesteros MD gabapentin (NEURONTIN) 600 MG Tablet 04/06/20 Yes Stefefn Ballesteros MD methotrexate 2.5 MG Tablet 04/06/20 Yes Steffen Ballesteros MD metoprolol tartrate (LOPRESSOR) 25 MG Tablet TAKE 1 TABLET BY MOUTH TWICE A DAY 03/07/20 Yes Tim Altman MD morphine (MS CONTIN) 15 MG Tablet Controlled Release 04/26/20 Steffen Ballesteros MD omeprazole (PriLOSEC) 40 MG CAPSULE DELAYED RELEASE Take 1 Cap by mouth daily. 02/07/20 Yes Tim Altman MD traMADol (ULTRAM) 50 MG Tablet 04/16/20 Yes ProviderSteffen MD There are no discontinued medications. I have reviewed the home medication list with the patient and have reconciled discrepancies. The list is accurate to the best of my knowledge. Smoking Status: Social History Tobacco Use ??? Smoking status: Former Smoker Types: Cigarettes Quit date: 07/23/1969 Years since quittin.8 ??? Smokeless tobacco: Never Used Substance Use Topics ??? Alcohol use: Not on file ??? Drug use: Not on file Smoking Cessation Counseling Given: no Health Care Maintenance: Health Maintenance Due Topic Date Due ??? DTaP/Tdap/Td Immunization (1 - Tdap) 1961 ??? Zoster Immunization (1 of 2) 2004 ??? Colorectal Cancer Screening 12/31/2018 ??? Pneumococcal Immunization (65+ years) (1 of 1 - PPSV23) 08/15/2019 ??? DEXA Bone Density 01/07/2020 ??? Influenza Immunization (1) 02/14/2020 Orders Pended: no The following BPA's have been addressed with the patient today: Flu, Smoking and Depression ET ORGANIZER * Tim Altman MD - 05/22/2020 1:30 PM CST PROGRESS NOTE [facility] - INTERNAL MEDICINE [address] [place] [address] 05/22/2020 Lexi Mcneil 1955 Chief Complaint Patient presents with ??? Pain left elbow Patient is here with complain of pain and swelling in the left double area. Patient just pain is doxycycline and symptoms have improved considerably. Denies any fever chills or rigors. ROS Review of Systems Constitutional: Negative. Respiratory: Negative. Cardiovascular: Negative. Musculoskeletal: Positive for arthralgias. PHYSICAL EXAM Physical Exam Vitals signs and nursing note reviewed. Constitutional: Appearance: Normal appearance. Neck: Musculoskeletal: Neck supple. Cardiovascular: Rate and Rhythm: Normal rate and regular rhythm. Pulses: Normal pulses. Heart sounds: Normal heart sounds. Pulmonary: Effort: Pulmonary effort is normal. Breath sounds: Normal breath sounds. Musculoskeletal: Normal range of motion. Skin: General: Skin is warm and dry. Neurological: Mental Status: She is alert. Has infected cyst in the left elbow area. No abscess. No drainage. Left elbow movement is normal. Past medical, surgical, social and family history has been reviewed and updated as necessary. Medications and allergies has been reviewed and updated. Allergies Allergen Reactions ??? Penicillins Rash ??? Sulfa Antibiotics Rash There are no active problems to display for this patient. Current Outpatient Medications: ??? acyclovir (ZOVIRAX) 400 MG Tablet ??? carbidopa-levodopa CR (SINEMET CR) 50-200 MG Tablet Controlled Release ??? celecoxib (CeleBREX) 200 MG Capsule ??? folic acid (FOLVITE) 1 MG Tablet ??? gabapentin (NEURONTIN) 600 MG Tablet ??? levoFLOXacin (LEVAQUIN) 500 MG Tablet ??? methotrexate 2.5 MG Tablet ??? metoprolol tartrate (LOPRESSOR) 25 MG Tablet ??? omeprazole (PriLOSEC) 40 MG CAPSULE DELAYED RELEASE ??? traMADol (ULTRAM) 50 MG Tablet Assessment ASSESSMENT & PLAN: No follow-ups on file. Diagnoses and all orders for this visit: Cellulitis of left elbow Other orders - carbidopa-levodopa CR (SINEMET CR) 50-200 MG Tablet Controlled Release - levoFLOXacin (LEVAQUIN) 500 MG Tablet; Take 1 Tab by mouth daily for 7 days. - acyclovir (ZOVIRAX) 400 MG Tablet; Take 1 Tab by mouth 3 times daily. Will try Levaquin 500 mg daily for 7 days. If no further improvement will refer to orthopedic surgeon. Acyclovir for herpes simplex type lesions on the lips. I educated Lexi regarding diagnoses and plan of care. She verbalizes understanding and will call the office if situation changes. Voice recognition software was utilized in this dictation. Despite proof reading, typographical errors and/or content errors may have occurred. By: Tim Altman MD 05/22/2020 1:44 PM CLOSET ORGANIZER ET ORGANIZER documented in this encounter Plan of Treatment Upcoming Encounters Date Type Department Care Team (Late st Contact Info) Description 06/30/2024 10:00 AM CLOSET ORGANIZER Physical Therapy [facility] [address] [place] [address] Raul Young MD [address] [place] [address] Brandi Coffey, PT [place] Discharge Disposition: Discharged to home or Selfcare 08/31/2024 9:30 AM CDT Office Visit [facility] - [facility] - [place] [address] [place] [address] Tim Altman MD [address] [place] [address] documented as of this encounter Visit Diagnoses Diagnosis Cellulitis of left elbow- Primary documented in this encounter Additional Health Concerns Assessment Noted Time PHQ-9 Depression Total Score: 0 05/22/20 20 1:00 PM CLOSET ORGANIZER documented as of this encounter Care Teams Vice President Of Compliance Relationship Specialty Start Date End Date Tim Altman MD [address] [place] [address] PCP - General Internal Medicine 12/03/15 documented as of this encounter
--- OUTSIDE RECORDS SUMMARY | 2024-06-17 14:49 | XMS_ITS | Encounter Summary ---
Author Organization [facility] Care Team Providers Care Machine Technician Name Role Phone Tim Altman MD Primary Care Provider Encounter Details Date Type Department Care Team (Latest Contact Info) Description 05/22/2020 Travel Social History Tobacco Use Types Packs/Day [...] COVID-19? No / Unsure 05/22/2020 11:19 AM SUPERVISOR PAYROLL documented as of this encounter Plan of Treatment Upcoming Encounters Date Type Department Care Team (Late st Contact Info) Description 06/30/2024 10:00 AM SUPERVISOR PAYROLL [facility] [address] [place] [address] Raul Young MD [address] [place] [address] Brandi Coffey, [place] Discharge Disposition: Discharged to home or Selfcare 08/31/2024 9:30 AM CDT Office Visit [facility] - Internal Medicine - [place] [address] [place] [address] Tim Altman MD [address] [place] [address] documented as of this encounter Visit Diagnoses Not on filedocumented in this encounter Additional Health Concerns Assessment Noted Time PHQ-9 Depression Total Score: 0 05/22/20 20 1:00 PM SUPERVISOR PAYROLL documented as of this encounter Care Teams Machine Technician Relationship Specialty Start Date End Date Tim Altman MD [address] [place] [address] PCP - General Internal Medicine 12/03/15 documented as of this encounter
--- OUTSIDE RECORDS SUMMARY | 2024-06-17 14:49 | XMS_ITS | Encounter Summary ---
Author Organization [facility] Care Team Providers Care Shirt Trimmer Name Role Phone Tim Altman MD Primary Care Provider Encounter Details Date Type Department Care Team (Latest Contact Info) Description 06/18/2020 Travel Social History Tobacco Use Types Packs/Day [...] have Coronavirus / COVID-19? No / Unsure 06/18/2020 3:36 PM SOLE STITCHER HAND documented as of this encounter Plan of Treatment Upcoming Encounters Date Type Department Care Team (Late st Contact Info) Description 06/30/2024 10:00 AM SOLE STITCHER HAND Physical Therapy [facility] [address] [place] [address] Raul Young MD [address] [place] [address] Brandi Coffey, [place] Discharge Disposition: Discharged to home or Selfcare 08/31/2024 9:30 AM CDT Office Visit [facility] - Internal Medicine - [place] [address] [place] [address] Tim Altman MD [address] [place] [address] documented as of this encounter Visit Diagnoses Not on filedocumented in this encounter Additional Health Concerns Assessment Noted Time PHQ-9 Depression Total Score: 0 06/18/19 21 3:00 PM SOLE STITCHER HAND documented as of this encounter Care Teams Shirt Trimmer Relationship Specialty Start Date End Date Tim Altman MD [address] [place] [address] PCP - General Internal Medicine 12/03/15 documented as of this encounter
--- OUTSIDE RECORDS SUMMARY | 2024-06-17 14:49 | XMS_ITS | Encounter Summary ---
Author Organization [facility] Address [address] [place] [address] Phone Care Team Providers Care Fluid Jet Cutter Operator Name Role Phone Tim Altman MD Primary Care Provider [phone] Reason for Visit * Reason Comments Medication Refill Encounter Details Date Type Department Care Team (Late st Contact Info) Description 06/26/2021 Refill [facility] - Internal Medicine - [place] [address] [place] [address] Tim Altman MD [address] [place] [address] Medication Refill Social History Tobacco [...] COVID-19? No / Unsure 06/20/2021 3:26 PM DECONTAMINATION TECHNICIAN documented as of this encounter Miscellaneous Notes * Telephone Encounter - Berenice Davis RN - 06/26/2021 9:29 AM CST Medication(s) [facility] Standing Order for Pediatricand Adult Patients. Requested Prescriptions Pending Prescriptions Disp Refills ??? metoprolol tartrate (LOPRESSOR) 25 MG Tablet [Pharmacy Med Name: METOPROLOL TART 25MG TAB 25 Tablet] 180 Tablet 0 Sig: TAKE 1 TABLET BY MOUTH TWICE A DAY Beta-Blockers Protocol Passed - 06/26/2021 9:11 AM Passed - BP on record in the past year Clinician-entered: BP Readings from Last 3 Encounters: 06/20/21 112/66 03/12/21 134/72 12/18/20 126/82 Patient-entered: No data recorded Passed - Visit with relevant provider in past 12 months or upcoming 90 days Recent Visits Date Type Provider Dept 06/20/21 [facility]21 Office Visit Tim Altman MD [place] [facility] 12/18/20 Office Visit Tim Altman MD [facility] Showing recent visits within past 365 days and meeting all other requirements Future Appointments No visits were found meeting these conditions. Showing future appointments within next 90 days and meeting all other requirements NTAMINATION TECHNICIAN documented in this encounter Plan of Treatment Upcoming Encounters Date Type Department Care Team (Late st Contact Info) Description 06/30/2024 10:00 AM DECONTAMINATION TECHNICIAN Physical Therapy [facility] [address] [place] [address] Raul Young MD [address] [place] [address] Brandi Coffey, PT [place] Discharge Disposition: Discharged to home or Selfcare 08/31/2024 9:30 AM CDT Office Visit [facility] - Internal Medicine [place] [address] [place] [place] [address] Tim Altman MD [address] [place] [address] documented as of this encounter Visit Diagnoses Not on filedocumented in this encounter Additional Health Concerns Assessment Noted Time PHQ-9 Depression Total Score: 0 06/18/19 21 3:00 PM DECONTAMINATION TECHNICIAN documented as of this encounter Care Teams Fluid Jet Cutter Operator Relationship Specialty Start Date End Date Tim Altman MD [address] [place] [address] PCP - General Internal Medicine 12/03/15 documented as of this encounter
--- OUTSIDE RECORDS SUMMARY | 2024-06-17 14:49 | XMS_ITS | Encounter Summary ---
Author Organization [facility] Address [address] [place] [address] Phone Care Team Providers Care Sea Captain Name Role Phone Tim Altman MD Primary Care Provider [phone] Reason for Referral * Consult, Test & Initiate Treatment (Less Than 1 Week) - Closed Specialty Diagnoses / Procedures Referred By Contac t Referred To Contact Diagnoses Mouth ulcer Tim Altman MD [address] [place] [address] Phone: tel: fax: Mau Lawson MD [address] [place] [address] Phone: tel: fax: Referral ID Status Reason Start Date Expiration Date Visits Re quested Visits Authorized [id number] Closed 03/12/2021 1 1 Scheduling Instructions Lexi is being referred to Dr. lawson or other specialist in patient's insurance network for Ulcer on roof of mouth See below for Lexi's current medications, allergies and problem list. CURRENT MEDS: Current Outpatient Medications: acyclovir (ZOVIRAX) 400 MG Tablet, Take 1 Tab by mouth 3 times daily., Disp: 21 Tab, Rfl: 0 carbidopa-levodopa CR (SINEMET CR) 50-200 MG Tablet Controlled Release, , Disp: , Rfl: celecoxib (CeleBREX) 200 MG Capsule, , Disp: , Rfl: folic acid (FOLVITE) 1 MG Tablet, , Disp: , Rfl: gabapentin (NEURONTIN) 600 MG Tablet, , Disp: , Rfl: methotrexate 2.5 MG Tablet, , Disp: , Rfl: metoprolol [...] lower extremity Other hyperlipidemia Restless leg syndrome Reason for Visit * Reason Comments Sore Throat sore back of throat, sinus issues, left ear pain Encounter Details Date Type Department Care Team (Late st Contact Info) Description 03/12/2021 2:45 PM CDT [facility] Visit [facility] - [place] [address] [place] [address] Tim Altman MD [address] [place] [address] Mouth ulcer (Primary Dx) Discharge Disposition: Discharged to home [...] PM CDT documented as of this encounter Last Filed Vital Signs Vital Sign Reading Time Taken Comments Blood Pressure 134/72 03/12/2021 2:41 PM CDT Pulse 70 03/12/2021 2:41 PM CDT Temperature 36.9 ??C (98.4 ??F) 03/12/2021 2:41 PM CD T Respiratory Rate - - Oxygen Saturation 98% 03/12/2021 2:41 PM CDT Inhaled Oxygen Concentration - - Weight - - Height - - Body Mass Index - - documented in this encounter Progress Notes * Doris Babb, TRISTEN - 03/12/2021 2:45 PM CDT Lexirocio Mcneil, 65 y.o., female is here for Sore Throat (sore back of throat, sinus issues, left ear pain) Medication Refills: Patient reports/denies need for medication refills. Orders Pended: no Requested Prescriptions No prescriptions requested or ordered in this encounter Home Medications Medication Sig Start Date End Date Taking? Authorizing Provider acyclovir (ZOVIRAX) 400 MG Tablet Take 1 Tab by mouth 3 times daily. 05/22/20 Yes Tim Altman MD carbidopa-levodopa CR (SINEMET CR) 50-200 MG Tablet Controlled Release 05/14/20 Yes ProviderSteffen MD celecoxib (CeleBREX) 200 MG Capsule 04/06/20 Yes Provider, MD Steffen folic acid (FOLVITE) 1 MG Tablet 04/14/20 Yes ProviderSteffen MD gabapentin (NEURONTIN) 600 MG Tablet 04/06/20 Yes ProviderSteffen MD methotrexate 2.5 MG Tablet 04/06/20 Yes ProviderSteffen MD metoprolol tartrate (LOPRESSOR) 25 MG Tablet TAKE 1 TABLET BY MOUTH TWICE A DAY 01/07/21 Yes Tim Altman MD omeprazole (PriLOSEC) 40 MG CAPSULE DELAYED RELEASE TAKE ONE CAPSULE BY MOUTH DAILY 11/13/20 Yes Tim Altman MD traMADol (ULTRAM) 50 MG Tablet 04/16/20 Yes Provider, MD Steffen There are no discontinued medications. I have reviewed the home medication list with the patient and have reconciled discrepancies. The list is accurate to the best of my knowledge. Smoking Status: Social History Tobacco Use ??? Smoking status: Former Smoker Types: Cigarettes Quit date: 07/23/1969 Years since quittin.6 ??? Smokeless tobacco: Never Used Vaping Use ??? Vaping Use: Never used Substance Use Topics ??? Alcohol use: Not Currently ??? Drug use: Never Smoking Cessation Counseling Given: no Health Care Maintenance: Health Maintenance Due Topic Date Due ??? DTaP/Tdap/Td Immunization (1 - Tdap) Never done ??? SARS-COV-2 Immunization (1) Never done ??? Zoster Immunization (1 of 2) Never done ??? Colorectal Cancer Screening 12/31/2018 ??? Pneumococcal Immunization (65+ years) (1 of 1 - PPSV23) Never done ??? Mammogram 12/30/2020 ??? Influenza Immunization (1) Never done Orders Pended: yes The following BPA's have been addressed with the patient today: Colonoscopy, Mammogram and Smoking * Tim Altman MD - 03/12/2021 2:45 PM CDT PROGRESS NOTE [facility] [place] [address] PHONE: [phone] FAX: [phone] 03/12/2021 NAME: Lexi Jose Ramon Mcneil, : 1955, Assessment ASSESSMENT & PLAN: Return if symptoms worsen or fail to improve. Diagnoses and all orders for this visit: Mouth ulcer Comments: Refer to ENT specialist for further evaluation. Orders: - EXTERNAL ENT REFERRAL; Future Other orders - Cancel: COLOGUARD - Cancel: YULIET SCREENING BILATERAL DIGITAL W CAD; Future Chief Complaint Patient presents with ??? Sore Throat sore back of throat, sinus issues, left ear pain HPI Patient is here with complain of ulcer on the roof of mild for past several weeks. She has tried antifungal medication and hydrogen peroxide rinse without any help. Also complains of pain in the leftear off and on. No drainage. Occasional sinus pressure. No fever chills or rigors. Appetite has been fair. ROS Review of systems was negative, except as documented in HPI PHYSICAL EXAM VITALS: Wt Readings from Last 3 Encounters: 12/18/20 196 lb (88.9 kg) 06/18/20 205 lb (93 kg) 05/22/20 207 lb (93.9 kg) Temp Readings from Last 3 Encounters: 03/12/21 98.4 ??F (36.9 ??C) (Temporal) 12/18/20 97.4 ??F (36.3 ??C) (Temporal) 06/18/20 97.2 ??F (36.2 ??C) (Temporal) BP Readings from Last 3 Encounters: 03/12/21 134/72 12/18/20 126/82 06/18/20 124/64 Pulse Readings from Last 3 Encounters: 03/12/21 70 12/18/20 71 06/18/20 72 Physical Exam Vitals and nursing note reviewed. Constitutional: Appearance: Normal appearance. HENT: Head: Normocephalic. Right Ear: Tympanic membrane and ear canal normal. Left Ear: Tympanic membrane and ear canal normal. Mouth/Throat: Mouth: Mucous membranes are moist. Pharynx: Oropharynx is clear. Comments: Patient has a small ulcer on the hard palate near the junction of soft palate. No drainage. Eyes: Extraocular Movements: Extraocular movements intact. Conjunctiva/sclera: Conjunctivae normal. Pupils: Pupils are equal, round, and reactive to light. Cardiovascular: Rate and Rhythm: Normal rate and regular rhythm. Pulses: Normal pulses. Heart sounds: Normal heart sounds. Pulmonary: Effort: Pulmonary effort is normal. Breath sounds: Normal breath sounds. Abdominal: Palpations: Abdomen is soft. Musculoskeletal: General: Normal [...] ??? gabapentin (NEURONTIN) 600 MG Tablet ??? methotrexate 2.5 MG Tablet [...] may have occurred. By: Tim Altman MD 03/12/2021 3:10 PM CDT documented in this encounter Plan of Treatment Upcoming Encounters Date Type Department Care Team (Late st Contact Info) Description 06/30/2024 10:00 AM SUPERVISOR WATERPROOFING Physical Therapy [facility] [address] [place] [phone] Raul Young MD [address] [place] [address] Brandi Coffey, [place] Discharge Disposition: Discharged to home or Selfcare 08/31/2024 9:30 AM CDT Office Visit [facility] - Internal Medicine - [place] [address] [place] [id number] Tim Altman MD [address] [place] [address] documented as of this encounter Procedures Procedure Name Priority Date/Time Associated Diagnosis Comments EXTERNAL ENT REFERRAL Less Than 1 week 03/14/2021 12:00 AM CDT Mouth ulcer documented in this encounter Results * EXTERNAL ENT REFERRAL (03/14/2021 12:00 AM CDT) 03/14/2021 Tim Altman MD OUTPT REFERRALS EXT/INT Fin al Result SCAN documented in this encounter Visit Diagnoses Diagnosis Mouth ulcer- Primary Other and unspecified diseases of the oral soft tissues documented in this encounter Additional Health Concerns Assessment Noted Time PHQ-9 Depression Total Score: 0 06/18/19 21 3:00 PM SUPERVISOR WATERPROOFING documented as of this encounter Care Teams Sea Captain Relationship Specialty Start Date End Date Tim Altman MD [address] [place] [address] PCP - General Internal Medicine 12/03/15 documented as of this encounter
--- OUTSIDE RECORDS SUMMARY | 2024-06-17 14:49 | XMS_ITS | Encounter Summary ---
Author Organization [facility] Address [address] [place] [address] Phone Care Team Providers Care Turf And Grounds Supervisor Name Role Phone Tim Altman MD Primary Care Provider Reason for Visit * Reason Comments Medication Refill Encounter Details Date Type Department Care Team (Late st Contact Info) Description 03/07/2020 Refill [facility] - [facility] - [place] [address] [place] [phone] Tim Altman MD [address] [place] [address] Medication Refill Social History Tobacco Use Types Packs/Day Years Used Date Smoking Tobacco: Never Assessed Comments No Sex and Gender Information Value Date Recorded Sex Assigned at Not on file Legal Sex Female 7:42 PM CDT Gender Identity Not on file Sexual Orientation Not on file documented as of this encounter Miscellaneous Notes * Telephone Encounter - Berenice Davis RN - 03/07/2020 9:56 AM CDT Please review and sign. documented in this encounter Plan of Treatment Upcoming Encounters Date Type Department Care Team (Late st Contact Info) Description 06/30/2024 10:00 AM BRIDAL SERVICE SALES AND MANAGEMENT Physical [facility] [address] [place] [phone] Raul Young MD [address] [place] [address] Brandi Coffey, PT [place] Discharge Disposition: Discharged to home or Selfcare 08/31/2024 9:30 AM CDT [facility] - [place] [address] [place] [phone] Tim Altman MD [address] [place] [address] documented as of this encounter Visit Diagnoses Not on filedocumented in this encounter Care Teams Turf And Grounds Supervisor Relationship Specialty Start Date End Date Tim Altman MD [address] [place] [address] PCP - General Internal Medicine 12/03/15 documented as of this encounter
--- OUTSIDE RECORDS SUMMARY | 2024-06-17 14:49 | XMS_ITS | Encounter Summary ---
Author Organization [facility] Address [address] [place] [address] Phone Care Team Providers Care Java Developer With Security Clearance Name Role Phone Tim Altman MD Primary Care Provider [phone] Reason for Visit * Reason Comments Medication Refill Encounter Details Date Type Department Care Team (Late st Contact Info) Description 07/07/2020 Refill [facility] - [place] [address] [place] [address] Tim Altman MD [address] [place] [address] Medication Refill Social History Tobacco [...] COVID-19? No / Unsure 06/18/2020 3:36 PM EDI PROGRAMMER ANALYST documented as of this encounter Miscellaneous Notes * Telephone Encounter - Berenice Davis RN - 07/09/2020 8:11 AM CST Please review and sign. PROGRAMMER ANALYST documented in this encounter Plan of Treatment Upcoming Encounters Date Type Department Care Team (Late st Contact Info) Description 06/30/2024 10:00 AM EDI PROGRAMMER ANALYST [facility] [address] [place] [address] Raul Young MD [address] [place], [place] [id number] Brandi Coffey, PT [place] Discharge Disposition: Discharged to home or Selfcare 08/31/2024 9:30 AM CDT Office Visit [facility] [address] [place] [phone] Tim Altman MD [address] [place] [address] documented as of this encounter Visit Diagnoses Not on filedocumented in this encounter Additional Health Concerns Assessment Noted Time PHQ-9 Depression Total Score: 0 06/18/19 21 3:00 PM EDI PROGRAMMER ANALYST documented as of this encounter Care Teams Java Developer With Security Clearance Relationship Specialty Start Date End Date Tim Altman MD [address] [place] [address] PCP - General Internal Medicine 12/03/15 documented as of this encounter
--- OUTSIDE RECORDS SUMMARY | 2024-06-17 14:49 | XMS_ITS | Encounter Summary ---
Author Organization [facility] Address [address] [place] [address] Phone Care Team Providers Care Store Worker Name Role Phone Tim Altman MD Primary Care Provider Reason for Visit * Reason Comments Follow-up 6 mo f/u Encounter Details Date Type Department Care Team (Late st Contact Info) Description 06/18/2020 3:45 PM FOOD SAFETY SCIENTIST [facility] - [place] [address] [place] [address] Tim Altman MD [address] [facility] [place] [address] Essential hypertension, benign (Primary Dx); Cellulitis of left elbow; GERD without esophagitis; Other specified rheumatoid arthritis, multiple sites (HCC); Reflex sympathetic dystrophy of left lower extremity; Other hyperlipidemia; Restless leg syndrome Discharge Disposition: Discharged to [...] COVID-19? No / Unsure 06/18/2020 3:36 PM FOOD SAFETY SCIENTIST documented as of this encounter Last Filed Vital Signs Vital Sign Reading Time Taken Comments Blood Pressure 124/64 06/18/2020 3:48 PM FOOD SAFETY SCIENTIST Pulse 72 06/18/2020 3:48 PM FOOD SAFETY SCIENTIST Temperature 36.2 ??C (97.2 ??F) 06/18/2020 3:48 PM CS T Respiratory Rate - - Oxygen Saturation - - Inhaled Oxygen Concentration - - Weight 93 kg (205 lb) 06/18/2020 3:48 PM FOOD SAFETY SCIENTIST Height 162.6 cm (5' 4 ) 06/18/2020 3:48 PM FOOD SAFETY SCIENTIST Body Mass Index 35.19 06/18/2020 3:48 PM FOOD SAFETY SCIENTIST documented in this encounter Progress Notes * Doris Babb, WATERSHED COORDINATOR - 06/18/2020 3:45 PM CST Lexi Mcneil, 64 y.o., female is here for Follow-up (6 mo f/u) Medication Refills: Patient reports/denies [...] 50-200 MG Tablet Controlled Release 05/14/20 Yes Provider, MD Steffen celecoxib (CeleBREX) 200 MG Capsule 04/06/20 Yes Provider, MD Steffen folic acid (FOLVITE) 1 MG Tablet 04/14/20 Yes Provider, MD Steffen gabapentin (NEURONTIN) 600 MG Tablet 04/06/20 Yes ProviderSteffen MD methotrexate 2.5 MG Tablet 04/06/20 Yes Provider, MD Steffen metoprolol tartrate (LOPRESSOR) 25 MG Tablet TAKE 1 TABLET BY MOUTH TWICE A DAY 06/13/20 Yes Tim Altman MD omeprazole (PriLOSEC) 40 [...] Years since quittin.9 ??? Smokeless tobacco: Never Used Substance Use Topics ??? Alcohol use: Not on file ??? Drug use: Not on file Smoking Cessation Counseling Given: no Health Care Maintenance: Health Maintenance Due Topic Date Due ??? DTaP/Tdap/Td Immunization (1 - Tdap) 1961 ??? Zoster Immunization (1 of 2) 2004 ??? Colorectal Cancer Screening 12/31/2018 ??? Pneumococcal Immunization (65+ years) (1 of - PPSV23) 08/15/2019 ??? DEXA Bone Density 01/07/2020 ??? Influenza Immunization (1) 02/14/2020 Orders Pended: no The following BPA's have been addressed with the patient today: Smoking and Depression SAFETY SCIENTIST * Tim Altman MD - 06/18/2020 3:45 PM CST [facility] - INTERNAL MED[facility]INE [facility] [address] [place] [address] Dept: [phone] Dept Loc: [phone] Loc Patient: Lexi Mcneil : 1955 Sex: female Medical Decision Making: Assessment & Plan Diagnoses and all orders for this visit: Essential hypertension, benign Cellulitis of left elbow GERD without esophagitis Other specified rheumatoid arthritis, multiple sites (HCC) Reflex sympathetic dystrophy of left lower extremity Other hyperlipidemia Restless leg syndrome Other orders - doxycycline hyclate (VIBRAMYCIN) 100 MG Capsule; Take 1 Cap by mouth 2 times daily for 10 days. Patient is advised to continue current medications. Continue follow-up with renewable energy engineer. Start doxycycline 100 mg b.i.d. for 10 days for mild cellulitis of left elbow area. If her left elbow pain persist then will refer to orthopedic surgeon. Return in about 6 months (around 12/16/2020) for htn. Subjective Subjective: HPI: Lexi Mcneil presents for Follow-up (6 mo f/u) Patient is here for follow-up for hypertension. Also has recurrence of redness and swelling near left elbow area. After Levaquin her symptoms resolved almost completely now symptoms are coming back. Denies any fever chills or rigors. Being followed by renewable energy engineer for RA. Denies any chest pain, palpitation, or shortness of breath. Tolerating medications well. Review of Systems Review of systems was negative, except as documented in HPI. Objective Objective: BP 124/64 (BP Location: Right Arm, BP Position: Sitting, BP Cuff Size: Large) Pulse 72 Temp 97.2 ??F (36.2 ??C) (Temporal) Ht 5' 4 (1.626 m) Wt 205 lb (93 kg) BMI 35.19 kg/m?? Physical Exam Vitals signs and nursing note reviewed. Constitutional: Appearance: Normal appearance. Comments: Patient is overweight HENT: Head: Normocephalic. Mouth/Throat: Mouth: Mucous membranes are moist. Pharynx: Oropharynx is clear. Eyes: Extraocular Movements: Extraocular movements intact. Conjunctiva/sclera: Conjunctivae normal. Pupils: Pupils are equal, round, and reactive to light. Neck: Musculoskeletal: Normal range of motion and neck supple. Cardiovascular: Rate and Rhythm: Normal rate and regular rhythm. Pulses: Normal pulses. Heart sounds: Normal heart sounds. Pulmonary: Effort: Pulmonary effort is normal. Breath sounds: Normal breath sounds. Abdominal: General: Abdomen is flat. Bowel sounds are normal. Palpations: Abdomen is soft. Musculoskeletal: Normal range of motion. Skin: General: Skin is warm and dry. Neurological: General: No focal deficit present. Mental Status: She is alert and oriented to person, place, and time. Psychiatric: Mood and Affect: Mood normal. Behavior: Behavior normal. Patient is ambulating with cane. Has mild redness and swelling near left elbow area. Left elbow joint movement is normal. SAFETY SCIENTIST documented in this encounter Plan of Treatment Upcoming Encounters Date Type Department Care Team (Late st Contact Info) Description 06/30/2024 10:00 AM FOOD SAFETY SCIENTIST Physical Therapy [facility] [address] [place] [address] Raul Young MD [address] [place] [address] Brandi Coffey, PT [place] Discharge Disposition: Discharged to home or Selfcare 08/31/2024 9:30 AM CDT Office Visit [facility] - Internal Medicine - [place] [address] [place] [address] Tim Altman MD [address] [place] [address] documented as of this encounter Visit Diagnoses Diagnosis Essential hypertension, benign- Primary Cellulitis of left elbow GERD without esophagitis Esophageal reflux Other specified rheumatoid arthritis, multiple sites (HCC) Reflex sympathetic dystrophy of left lower extremity Reflex sympathetic dystrophy of the lower limb Other hyperlipidemia Restless leg syndrome Restless legs syndrome (RLS) documented in this encounter Additional Health Concerns Assessment Noted Time PHQ-9 Depression Total Score: 0 06/18/19 21 3:00 PM FOOD SAFETY SCIENTIST documented as of this encounter Care Teams Store Worker Relationship Specialty Start Date End Date Tim Altman MD [address] [place] [address] PCP - General Internal Medicine 12/03/15 documented as of this encounter
--- OUTSIDE RECORDS SUMMARY | 2024-06-17 14:49 | XMS_ITS | Encounter Summary ---
Author Organization [facility] Care Team Providers Care Metal Window Frame Maker Name Role Phone Tim Altman MD Primary Care Provider [phone] Encounter Details Date Type Department Care Team (Latest Contact Info) Description 06/20/2021 Travel Social History Tobacco Use Types Packs/Day [...] COVID-19? No / Unsure 06/20/2021 3:26 PM SHIRT FOLDER documented as of this encounter Plan of Treatment Upcoming Encounters Date Type Department Care Team (Late st Contact Info) Description 06/30/2024 10:00 AM SHIRT FOLDER Physical Therapy [facility] [address] [place] [address] Raul Young MD [address] [place] [address] Brandi Coffey, PT [place] Discharge Disposition: Discharged to home or Selfcare 08/31/2024 9:30 AM CDT Office Visit [facility] - Internal [facility] [address] [place] [phone] Tim Altman MD [address] [place] [address] documented as of this encounter Visit Diagnoses Not on filedocumented in this encounter Additional Health Concerns Assessment Noted Time PHQ-9 Depression Total Score: 0 06/18/19 21 3:00 PM SHIRT FOLDER documented as of this encounter Care Teams Metal Window Frame Maker Relationship Specialty Start Date End Date Tim Altman MD [address] [place] [address] PCP - General Internal Medicine 12/03/15 documented as of this encounter
--- OUTSIDE RECORDS SUMMARY | 2024-06-17 14:49 | XMS_ITS | Encounter Summary ---
Author Organization [facility] Address [address] [place] [address] Phone Care Team Providers Care Automotive Engineer Name Role Phone Tim Altman MD Primary Care Provider [phone] Reason for Referral * Radiology Services (Routine) - Closed Specialty Diagnoses / Procedures Referred By Dariela nettles Referred To Contact Radiology Diagnoses Screening for osteoporosis Menopause Procedures YULIET BONE DENSITOMETRY AXIAL SKELETON Marilyn Campos, LISA, ICE CREAM MAN Phone: tel: fax: Referral ID Status Reason Start Date Expiration Date Visits Re quested Visits Authorized [id number] Closed 11/29/2020 1 1 Encounter Details Date Type Department Care Team (Late st Contact Info) Description 11/29/2020 Transcribe Orders [facility] Central Scheduling [address] [place] [id number] Marilyn Campos APRN, ICE CREAM MAN [address] [place] [address] DR MATILDE Mendenhall [address] [address] Screening for osteoporosis (Primary Dx); Menopause Social History Tobacco Use Types Packs/Day Years [...] st Contact Info) Description 06/30/2024 10:00 AM MEDICAL ACCOUNTS RECEIVABLE SPECIALIST [facility] [address] [place] [address] Raul Young MD [address] [place] [address] Brandi Coffey, PT [place] Discharge Disposition: Discharged to home or Selfcare 08/31/2024 9:30 AM CDT Office Visit [facility] - Internal Medicine - [place] [address] [place] [address] Tim Altman MD [address] [place] [address] documented as of this encounter Results * YULIET BONE DENSITOMETRY AXIAL SKELETON (12/18/2020 10:10 AM [...] old ??F with given history of screening. Plastic Surgery Nurse/Model: ?? [employer] ([id number]) CLINICAL INFORMATION: ??Current height: ??65 inches ? [...] PM T: ??12/18/2020 12:15 PM Report ID: [id number] Reading Location: ??[id number] Procedure Note Reinaldo Silvestre MD - 12/18/2020 EXAM DESCRIPTION: YULIET BONE DENSITOMETRY AXIAL SKELETON REASON FOR STUDY: 65 y/o year old F with given history of screening. Plastic Surgery Nurse/Model: [employer] ([id number]) CLINICAL INFORMATION: Current height: 65 inches Maximum [...] Reinaldo Silvestre M.D. AG: YADIRA Report ID: [id number] Reading Location: [id number] IMPRESSION: Low bone mass. Fracture risk assessment [...] Treatment of Osteoporosis (http://www.nof.org/professionals/clinical-guidelines) us Marilyn Campos ELEMENTARY EDUCATOR, ICE CREAM MAN IMG DEXA ORDERABLES Final Result documented in this encounter Visit Diagnoses Diagnosis Screening for osteoporosis- Primary Special screening for osteoporosis Menopause Symptomatic menopausal or female climacteric states Screening for osteoporosis Special screening for osteoporosis Menopause Symptomatic menopausal or female climacteric states documented in this encounter Additional Health Concerns Assessment Noted Time PHQ-9 Depression Total Score: 0 06/18/19 21 3:00 PM MEDICAL ACCOUNTS RECEIVABLE SPECIALIST documented as of this encounter Care Teams Automotive Engineer Relationship Specialty Start Date End Date Tim Altman MD [address] [place] [address] PCP - General Internal Medicine 12/03/15 documented as of this encounter
--- OUTSIDE RECORDS SUMMARY | 2024-06-17 14:49 | XMS_ITS | Encounter Summary ---
Author Organization [facility] Address [address] [place] [address] Phone Care Team Providers Care Dish Stacker Name Role Phone Tim Altman MD Primary Care Provider [phone] Reason for Visit * Reason Comments High Blood Pressure 6 mo f/u Form Completion Encounter Details Date Type Department Care Team (Late st Contact Info) Description 06/20/2021 3:45 PM HVAC ENGINEER [facility] - [place] [address] [place] [address] Tim Altman MD [address] [place] [address] Essential hypertension, benign (Primary Dx); Other specified rheumatoid arthritis, multiple sites (HCC); Other hyperlipidemia; GERD without esophagitis; Reflex sympathetic dystrophy of left lower extremity; Restless leg syndrome Discharge Disposition: Discharged to [...] COVID-19? No / Unsure 06/20/2021 3:26 PM HVAC ENGINEER documented as of this encounter Last Filed Vital Signs Vital Sign Reading Time Taken Comments Blood Pressure 112/66 06/20/2021 3:38 PM HVAC ENGINEER Pulse 84 06/20/2021 3:38 PM HVAC ENGINEER Temperature 36.4 ??C (97.6 ??F) 06/20/2021 3:38 PM CS T Respiratory Rate - - Oxygen Saturation 99% 06/20/2021 3:38 PM HVAC ENGINEER Inhaled Oxygen Concentration - - Weight 89.4 kg (197 lb) 06/20/2021 3:38 PM HVAC ENGINEER Height 162.6 cm (5' 4 ) 06/20/2021 3:38 PM HVAC ENGINEER Body Mass Index 33.81 06/20/2021 3:38 PM HVAC ENGINEER documented in this encounter Progress Notes * Doris Babb, TRISTEN - 06/20/2021 3:45 PM CST Lexirocio Mcneil, 65 y.o., female is here for High Blood Pressure (6 mo f/u) and Form Completion Medication Refills: Patient reports/denies need for medication [...] 200 MG Capsule 04/06/20 Yes ProviderSteffen MD fluticasone (FLONASE) 50 MCG/ACT Suspension USE 1 SPRAY(S) EACH NOSTRIL TWO TIMES A DAY DIRECTEDBY PHYSICIAN 05/06/21 Yes Tim Altman MD folic acid (FOLVITE) 1 MG Tablet 04/14/20 Yes ProviderSteffen MD gabapentin (NEURONTIN) 600 MG Tablet 04/06/20 Yes ProviderSteffen MD methotrexate 2.5 MG Tablet 04/06/20 Provider, MD Steffen metoprolol tartrate (LOPRESSOR) 25 MG Tablet TAKE 1 TABLET BY MOUTH TWICE A DAY 04/08/21 Yes Tim Altman MD omeprazole (PriLOSEC) 40 MG CAPSULE DELAYED RELEASE TAKE ONE CAPSULE BY MOUTH DAILY 04/08/21 Yes Tim Altman MD traMADol (ULTRAM) 50 [...] since quittin.9 ??? Smokeless tobacco: Never Used Vaping Use [...] done ??? Pneumococcal Immunization (65+ years) (1 of 1 - PPSV23) Never done ??? Influenza Immunization (1) Never done ??? Colorectal Cancer Screening 04/16/2021 Orders Pended: yes The following BPA's have been addressed with the patient today: Colonoscopy, Smoking and Depression ENGINEER * Tim Altman MD - 06/20/2021 3:45 PM CST PROGRESS NOTE [facility] [place] [address] PHONE: [phone] FAX: [phone] 06/20/2021 NAME: Lexi Mcneil, : 1955, Assessment ASSESSMENT & PLAN: Return in about 6 months (around 12/18/2021) for htn. Diagnoses and all orders for this visit: Essential hypertension, benign Comments: Stable. Continue current medication Other specified rheumatoid arthritis, multiple sites (HCC) Comments: Continue follow-up with jockey room custodian Other hyperlipidemia Comments: Continue low-cholesterol diet GERD without esophagitis Comments: Stable. Continue current medication Reflex sympathetic dystrophy of left lower extremity Restless leg syndrome Comments: Stable. Continue current medication DMV form completed Follow-up in 6 months, sooner if needed Chief Complaint Patient presents with ??? High Blood Pressure 6 mo f/u ??? Form Completion HPI Patient is here for follow-up for hypertension other medical problems. Patient is feeling well except generalized arthralgia. Being followed by jockey room custodian for rheumatoid arthritis. Requesting handicap parking permit form completed. At times she has severe arthralgia leading to difficulty in walking. Tolerating medications well. Seen by ENT specialist for oral ulcer and it was diagnosed to have due to methotrexate. Methotrexate has been discontinued. ROS Review of systems was negative, except as documented in HPI PHYSICAL EXAM VITALS: Wt Readings from Last 3 Encounters: 06/20/21 197 lb (89.4 kg) 12/18/20 196 lb (88.9 kg) 06/18/20 205 lb (93 kg) Temp Readings from Last 3 Encounters: 06/20/21 97.6 ??F (36.4 ??C) (Temporal) 03/12/21 98.4 ??F (36.9 ??C) (Temporal) 12/18/20 97.4 ??F (36.3 ??C) (Temporal) BP Readings from Last 3 Encounters: 06/20/21 112/66 03/12/21 134/72 12/18/20 126/82 Pulse Readings from Last 3 Encounters: 06/20/21 84 03/12/21 70 12/18/20 71 Physical Exam Vitals and nursing note reviewed. [...] and oriented to person, place, and time. Mental status is at baseline. Psychiatric: Mood and Affect: Mood normal. Behavior: Behavior normal. Wearing brace in the left foot ankle area Patient is ambulatory. Past medical, surgical, social and family history [...] may have occurred. By: Tim Altman MD 06/20/2021 4:25 PM HVAC ENGINEER ENGINEER documented in this encounter Plan of Treatment Upcoming Encounters Date Type Department Care Team (Late st Contact Info) Description 06/30/2024 10:00 AM HVAC ENGINEER [facility] [address] [place] [address] Raul Young MD [address] [place] [address] Brandi Coffey, PT [place] Discharge Disposition: Discharged to home or Selfcare 08/31/2024 9:30 AM CDT Office Visit [facility] - Internal Medicine - [place] [address] [place] [phone] Tim Altman MD [address] [place] [address] documented as of this encounter Visit Diagnoses Diagnosis Essential hypertension, benign- Primary Other specified rheumatoid arthritis, multiple sites (HCC) Other hyperlipidemia GERD without esophagitis Esophageal reflux Reflex sympathetic dystrophy of left lower extremity Reflex sympathetic dystrophy of the lower limb Restless leg syndrome Restless legs syndrome (RLS) documented in this encounter Additional Health Concerns Assessment Noted Time PHQ-9 Depression Total Score: 0 06/18/19 21 3:00 PM HVAC ENGINEER documented as of this encounter Care Teams Dish Stacker Relationship Specialty Start Date End Date Tim Altman MD [address] [place] [address] PCP - General Internal Medicine 12/03/15 documented as of this encounter
--- OUTSIDE RECORDS SUMMARY | 2024-06-17 14:49 | XMS_ITS | Encounter Summary ---
Author Organization [facility] Address [address] [place] [address] Phone Care Team Providers Care Mc Kay Machine Operator Name Role Phone Tim Altman MD Primary Care Provider Reason for Visit * Reason Comments Hypertension 6 mth f/u Encounter Details Date Type Department Care Team (Late st Contact Info) Description 12/18/2020 3:45 PM CDT [facility] Visit [facility] - [place] [address] [place] [address] Tim Altman MD [address] [place] [address] Essential hypertension, benign (Primary Dx); GERD without esophagitis; Other hyperlipidemia; Other specified rheumatoid arthritis, multiple sites (HCC); Reflex sympathetic dystrophy of left lower extremity [...] Sign Reading Time Taken Comments Blood Pressure 126/82 12/18/2020 4:11 PM CDT Pulse 71 12/18/2020 3:52 PM CDT Temperature 36.3 ??C (97.4 ??F) 12/18/2020 3:52 PM CD T Respiratory Rate 16 12/18/2020 3:52 PM CDT Oxygen Saturation 100% 12/18/2020 3:52 PM CDT Inhaled Oxygen Concentration - - Weight 88.9 kg (196 lb) 12/18/2020 3:52 PM CDT Height 162.6 cm (5' 4 ) 12/18/2020 3:52 PM CDT Body Mass Index 33.64 12/18/2020 3:52 PM CDT documented in this encounter Patient Instructions * Patient Instructions* Cecy Kelley RMA - 12/18/2020 3:45 PM CDT Pneumonia is a serious lung infection [...] documented in this encounter Progress Notes * Cecy Kelley RMA - 12/18/2020 3:45 PM CDT Lexi Jose Ramon Ewa is a 65 y.o. female with current BMI: Body mass index is 33.64 kg/m??. Interventions discussed including: encourage daily physical activity and well- balanced diet. * Cecy Kelley RMA - 12/18/2020 3:45 PM CDT Lexi Mcneil, 65 y.o., female is here for Hypertension (6 mth f/u) Medication Refills: Patient reports/denies need for [...] MG Tablet 04/06/20 Yes Steffen Ballesteros MD methotrexate 2.5 MG Tablet 04/06/20 Yes Steffen Ballesteros MD metoprolol tartrate (LOPRESSOR) 25 MG Tablet TAKE 1 TABLET BY MOUTH TWICE A DAY 09/10/20 Yes Tim Altman MD omeprazole (PriLOSEC) 40 [...] Cigarettes Quit date: 07/23/1969 Years since quittin.4 ??? Smokeless tobacco: Never Used Substance Use Topics ??? Alcohol use: Not on file ??? Drug use: Not on file Smoking Cessation Counseling Given: n/a Health Care Maintenance: Health Maintenance Due Topic Date Due ??? DTaP/Tdap/Td Immunization (1 - Tdap) Never done ??? SARS-COV-2 Immunization (1) Never done ??? Zoster Immunization (1 of 2) Never done ??? Colorectal Cancer Screening 12/31/2018 ??? Pneumococcal Immunization (65+ years) (1 of 1 - PPSV23) Never done ??? Mammogram 12/30/2020 Orders Pended: no The following BPA's have been addressed with the patient today: BMI, TDAP, Pneumonia, Colonoscopy and Mammogram * Tim Altman MD - 12/18/2020 3:45 PM CDT S S PROGRESS NOTE [facility] - INTERNAL MEDICINE [address] [place] [address] PHONE: [phone] FAX: [phone] 12/18/2020 NAME: Lexi Mcneil, : 1955, Assessment ASSESSMENT & PLAN: Return in about 6 months (around 06/20/2021) for htn. Diagnoses and all orders for this visit: Essential hypertension, benign Comments: Stable. Continue current medication GERD without esophagitis Comments: Stable. Continue current medication Other hyperlipidemia Comments: Continue low-cholesterol diet. Other specified rheumatoid arthritis, multiple sites (HCC) Comments: Continue follow-up with security professional Reflex sympathetic dystrophy of left lower extremity Comments: Stable. Continue to monitor. Follow-up in 6 months, sooner if needed. Chief Complaint Patient presents with ??? Hypertension 6 mth f/u HPI Patient is here for follow-up for hypertension other medical problems. Patient is feeling well except pain in the left foot and generalized arthralgia. Being followed by security professional for RA . Tolerating medications well. ROS Review of systems was negative, except as documented in HPI PHYSICAL EXAM VITALS: Wt Readings from Last 3 Encounters: 12/18/20 196 lb (88.9 kg) 06/18/20 205 lb (93 kg) 05/22/20 207 lb (93.9 kg) Temp Readings from Last 3 Encounters: 12/18/20 97.4 ??F (36.3 ??C) (Temporal) 06/18/20 97.2 ??F (36.2 ??C) (Temporal) 05/22/20 97.2 ??F (36.2 ??C) (Temporal) BP Readings from Last 3 Encounters: 12/18/20 126/82 06/18/20 124/64 05/22/20 118/64 Pulse Readings from Last 3 Encounters: 12/18/20 71 06/18/20 72 05/22/20 100 Physical Exam Vitals and nursing note reviewed. Constitutional: Appearance: Normal appearance. HENT: Head: Normocephalic. Mouth/Throat: Mouth: Mucous membranes [...] range of motion and neck supple. Comments: Patient is wearing AFO brace on the left foot. Skin: General: Skin is warm and dry. [...] may have occurred. By: Tim Altman MD 12/18/2020 4:15 PM CDT documented in this encounter Plan of Treatment Upcoming Encounters Date Type Department Care Team (Late st Contact Info) Description 06/30/2024 10:00 AM COUNSEL [facility] [address] [place] [address] Raul Young MD [address] [place] [address] Brandi Coffey, PT [place] Discharge Disposition: Discharged to home or Selfcare 08/31/2024 9:30 AM CDT [facility] - [place] [address] [place] [address] Tim Altman MD [address] [place] [address] documented as of this encounter Visit Diagnoses Diagnosis Essential hypertension, benign- Primary GERD without esophagitis Esophageal reflux Other hyperlipidemia Other specified rheumatoid arthritis, multiple sites (HCC) Reflex sympathetic dystrophy of left lower extremity Reflex sympathetic dystrophy of the lower limb documented in this encounter Additional Health Concerns Assessment Noted Time PHQ-9 Depression Total Score: 0 06/18/19 21 3:00 PM COUNSEL documented as of this encounter Care Teams Mc Kay Machine Operator Relationship Specialty Start Date End Date Tim Altman MD [address] [place] [address] PCP - General Internal Medicine 12/03/15 documented as of this encounter
--- OUTSIDE RECORDS SUMMARY | 2024-06-17 14:54 | XMS_ITS | Encounter Summary ---
Author Organization [facility] Address [address] [place] [address] Care Team Providers Care Hardwood Floor Sander Name Role Phone Tim Altman MD Primary Care Provider [phone] Reason for Visit * Reason Onset Date Comments Request For Order(s) 06/29/2020 Encounter Details Date Type Department Care Team (Late st Contact Info) Description 06/29/2020 Telephone [facility] [address] [place] [address] Mavis Alvarado MA Request For Order(s) Social History Tobacco Use Types Packs/Day Years Used Date Smoking Tobacco: Never Smokeless Tobacco: Never Alcohol Use Standard Drinks/Week Comments No 0 (1 standard drink = 0.6 oz pur e alcohol) PHQ-2 Answer Date Recorded PHQ-2 Score 0 02/03/2019 Comments No Sex and Gender Information Value Date Recorded Sex Assigned at Not on file Legal Sex Female 6:27 PM SEISMIC ENGINEER Gender Identity Not on file Sexual Orientation Not on file documented as of this encounter Miscellaneous Notes * Telephone Encounter - Mavis Alvarado MA - 06/29/2020 2:09 PM SEISMIC ENGINEER Pt called today requesting mamm order mailed to her. She wants to go to [facility]. MIC ENGINEER documented in this encounter Plan of Treatment Not on file documented as of this encounter Visit Diagnoses Diagnosis Encounter for screening mammogram for malignant neoplasm of breast- Primary documented in this encounter Care Teams Hardwood Floor Sander Relationship Specialty Start Date End Date Tim Altman MD [address] [place] [address] PCP - General 04/03/11 documented as of this encounter
--- OUTSIDE RECORDS SUMMARY | 2024-06-17 14:54 | XMS_ITS | Encounter Summary ---
Author Organization [facility] Address [address] [place] [address] Care Team Providers Care Panama Hat Smearer Name Role Phone Tim Altman MD Primary Care Provider [phone] Encounter Details Date Type Department Care Team (Late st Contact Info) Description 01/10/2019 [facility]phone [facility] [address] [place] [address] Cristina Hussein LPN Social History Tobacco Use Types Packs/Day Years Used Date Smoking Tobacco: Never Smokeless Tobacco: Never Alcohol Use Standard Drinks/Week Comments No 0 (1 standard drink = 0.6 oz pur e alcohol) Comments No Sex and Gender Information Value Date Recorded Sex Assigned at Not on file 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 documented in this encounter Plan of Treatment Not on file documented as of this encounter Visit Diagnoses Not on filedocumented in this encounter Care Teams Panama Hat Smearer Relationship Specialty Start Date End Date Tim Altman MD [address] [place] [address] PCP - General 04/03/11 documented as of this encounter
--- OUTSIDE RECORDS SUMMARY | 2024-06-17 14:54 | XMS_ITS | Encounter Summary ---
Author Organization [facility] Address [address] [place] [address] Care Team Providers Care Pump Servicer Name Role Phone Tim Altman MD Primary Care Provider [phone]- [phone] Encounter Details Date Type Department Care Team (Late st Contact Info) Description 04/24/2021 Orders Only [facility] [address] [place] [address] Mavis Alvarado MA Screening for colon cancer (Primary Dx) Social History Tobacco Use Types Packs/Day Years Used Date Smoking Tobacco: Never Smokeless Tobacco: Never Alcohol Use Standard Drinks/Week Comments No 0 (1 standard drink = 0.6 oz pur e alcohol) PHQ-2 Answer Date Recorded PHQ-2 Total Score (If total score is 3 or more points, staff should administer the PHQ-9) 0 04/15/2021 Comments No Sex and Gender Information Value Date Recorded Sex Assigned at Not on file Legal Sex Female 6:27 PM TRAINMAN Gender Identity Not on file Sexual Orientation Not on file documented as of this encounter Plan of Treatment Not on file documented as of this encounter Procedures Procedure Name Priority Date/Time Associated Diagnosis Comments STOOL DNA ? COLOGUARD Routine 05/20/2021 6:25 AM TRAINMAN Screening for colon cancer documented in this encounter Results * Stool DNA - Cologuard (05/20/2021 6:25 AM TRAINMAN) Stool DNA - Cologuard Negative Negative [facility] (CLIA #:[id number]) Comment: NEGATIVE TEST RESULT. A negative Cologuard result indicates a low likelihood that a colorectal cancer (CRC) or advanced adenoma (adenomatous polyps with more advanced pre-malignant features) ??is present. The chance that a person with a negative Cologuard test has a colorectal cancer is less than 1 in 1500 (negative predictive value >99.9%) or has an ??advanced adenoma is less than ??5.3% (negative predictive value 94.7%). These data are based on a prospective cross-sectional study of 10,000 individuals at average risk for colorectal cancer who were screened with both Cologuard and colonoscopy. (Mumtaz Echeverria al, N Engl J Med 2014;370(14):1286- 1297) The normal value (reference range) for this assay is negative. COLOGUARD RE-SCREENING RECOMMENDATION: Periodic colorectal cancer screening is an important part of preventive healthcare for asymptomatic individuals at average risk for colorectal cancer. ??Following a negative Cologuard result, the [place] [employer] Society and U.S. Multi-Society Task Force screening guidelines recommend a Cologuard re-screening interval of 3 years. References: [place] [employer] Guideline for Colorectal Cancer Screening: https://www.cancer.org/cancer/ibtsy-khfiwf-rhymcu/tukioiavs-oguturhyc-rjjvnfd/ac s-rec ommendations.html.; Uriah DK, Karina HARTMANN, Kamlesh VillalpandoK, Colorectal Cancer Screening: Recommendations for Physicians and Patients from the U.S. Multi-Society Task Force on Colorectal Cancer Screening , Am J Gastroenterology 2017; 112:3822-5335. TEST DESCRIPTION: Composite algorithmic analysis of stool DNA-biomarkers with hemoglobin immunoassay. ?? Quantitative values of individual biomarkers are not reportable and are not associated with individual biomarker result reference ranges. Cologuard is intended for colorectal cancer screening of adults of either sex, 45 years or older, who are at average-risk for colorectal cancer (CRC). Cologuard has been approved for use by the U.S. FDA. The performance of Cologuard was established in a cross sectional study of average-risk adults aged 50-84. Cologuard performance in patients ages 45 to 49 years was estimated by sub-group analysis of near-age groups. Colonoscopies performed for a positive result may find as the most clinically significant lesion: colorectal cancer [4.0%], advanced adenoma (including sessile serrated polyps greater than or equal to 1cm diameter) [20%] or non- advanced adenoma [31%]; or no colorectal neoplasia [45%]. These estimates are derived from a prospective cross-sectional screening study of 10,000 individuals at average risk for colorectal cancer who were screened with both Cologuard and colonoscopy. (Mumtaz Box et al, N Engl J Med 2014;370(14):0591-6333.) Cologuard may produce a false negative or false positive result (no colorectal cancer or precancerous polyp present at colonoscopy follow up). A negative Cologuard test result does not guarantee the absence of CRC or advanced adenoma (pre-cancer). The current Cologuard screening interval is every 3 years. ([place] [employer] Society and U.S. Multi-Society Task Force). Cologuard performance data in a 10,000 patient pivotal study using colonoscopy as the reference method can be accessed at the following location: www.eÇift/results. Additional description of the Cologuard test process, warnings and precautions can be found at www.[address] [employer].com. Stool 05/20/2021 6:25 AM TRAINMAN 05/21/2021 12:01 PM TRAINMAN Marilyn Campos JUVENILE DETENTION OFFICER LAB BODY FLUIDS AND STOOL S ORDERABLES Final Result [facility] (CLIA #:[id number]) [place] [address] documented in this encounter Visit Diagnoses Diagnosis Screening for colon cancer- Primary Special screening for malignant neoplasms, colon documented in this encounter Care Teams Pump Servicer Relationship Specialty Start Date End Date Tim Altman MD [address] [place] [address] PCP - General 04/03/11 documented as of this encounter
--- OUTSIDE RECORDS SUMMARY | 2024-06-17 14:54 | XMS_ITS | Encounter Summary ---
Author Organization [facility] Address [address] [place] [address] Care Team Providers Care Block And Case Maker Name Role Phone Tim Altman MD Primary Care Provider [phone]- [phone] Encounter Details Date Type Department Care Team (Late st Contact Info) Description 12/20/2019 Telephone [facility] [address] [place] [address] Mavis Alvarado MA Social History Tobacco Use Types Packs/Day Years Used Date Smoking Tobacco: Never Smokeless Tobacco: Never Alcohol Use Standard Drinks/Week Comments No 0 (1 standard drink = 0.6 oz pur e alcohol) PHQ-2 Answer Date Recorded PHQ-2 Score 0 02/03/2019 Comments No Sex and Gender Information Value Date Recorded Sex Assigned at Not on file Legal Sex Female 6:27 PM WORKERS COMPENSATION EXAMINER Gender Identity Not on file Sexual Orientation Not on file documented as of this encounter Miscellaneous Notes * Telephone Encounter - Marilyn Campos NP - 12/20/2019 1:45 PM CDT Noted * Telephone Encounter - Mavis Alvarado MA - 12/20/2019 11:44 AM CDT Per Cammie ok to defer wwe this year, pt made aware and will call back to schedule next years WWE * Telephone Encounter - Mavis Alvarado MA - 12/20/2019 10:32 AM CDT Pt called today stating that she is due for her WWE but at her last wwe appt. Her hip popped and pinched a nerve and she has to be careful with how she sits etc. Pt pap last year was deferred lst [id number] WNL no abnormal history. Pt is not prescribed any meds from office. Please advise should pt proceed with wwe this year? documented in this encounter Plan of Treatment Not on file documented as of this encounter Visit Diagnoses Not on filedocumented in this encounter Care Teams Block And Case Maker Relationship Specialty Start Date End Date Tim Altman MD [address] [place] [address] PCP - General 04/03/11 documented as of this encounter
--- OUTSIDE RECORDS SUMMARY | 2024-06-17 14:54 | XMS_ITS | Encounter Summary ---
Author Organization [facility] Address [address] [place] [address] Care Team Providers Care Commercial Lending Relationship Manager Name Role Phone Tim Altman MD Primary Care Provider [phone]- [phone] Encounter Details Date Type Department Care Team (Late st Contact Info) Description 12/24/2017 Orders Only [facility] [address] [place] [address] Mavis Alvarado MA Encounter for screening mammogram for malignant neoplasm of breast; Abnormal mammogram; Screening for osteoporosis Social History Tobacco Use Types Packs/Day Years Used Date Smoking Tobacco: Never Smokeless Tobacco: Never Alcohol Use Standard Drinks/Week Comments No 0 (1 standard drink = 0.6 oz pur e alcohol) Comments No Sex and Gender Information Value Date Recorded Sex Assigned at Not on file Legal Sex Female 6:27 PM MECHATRONICS TECHNOLOGIST Gender Identity Not on file Sexual Orientation Not on file documented as of this encounter Plan of Treatment Not on file documented as of this encounter Procedures Procedure Name Priority Date/Time Associated Diagnosis Comments DEXA AXIAL SKELETON BONE DENSITY 1 OR MORE SITES Schedule Routine, Read Routine (OP Routine) 01/06/2018 Screening for osteoporosis SCREENING MAMMOGRAM 2D BILATERAL Schedule Routine, Read Routine (OP Routine) 12/17/2017 Encounter for screening mammogram for malignant neoplasm of breast documented in this encounter Results * Dexa Axial Skeleton Bone Density 1 or 2 Site (01/06/2018) Anatomical Region Laterality Modality Body N/A Radiographic Irma ging Lucía Berger HYDRO GENERATION MANAGER IMG DXA PROCEDURES Final Result * Screening Mammogram bilateral (12/17/2017) Anatomical Region Laterality Modality Breast Bilateral Mammography Marilyn Campos HYDRO GENERATION MANAGER IMG MAMMO PROCEDURES Bety l Result documented in this encounter Visit Diagnoses Diagnosis Encounter for screening mammogram for malignant neoplasm of breast Abnormal mammogram Abnormal mammogram, unspecified Screening for osteoporosis Special screening for osteoporosis documented in this encounter Orders Imaging Orders Without Results Count Last Order ed Date First Ordered Date DIAGNOSTIC MAMMOGRAM LEFT W RAFAEL 1 12/25/19 18 US BREAST LEFT COMPLETE 1 12/24/2017 documented in this encounter Care Teams Commercial Lending Relationship Manager Relationship Specialty Start Date End Date Tim Altman MD [address] [place] [address] PCP - General 04/03/11 documented as of this encounter
--- OUTSIDE RECORDS SUMMARY | 2024-06-17 14:54 | XMS_ITS | Encounter Summary ---
Author Organization [facility] Address [address] [place] [address] Care Team Providers Care Pulp Operator Name Role Phone Tim Altman MD Primary Care Provider [phone]- [phone] Reason for Visit * Reason Onset Date Comments Test Results 06/11/2021 Encounter Details Date Type Department Care Team (Late st Contact Info) Description 06/11/2021 Telephone [facility] [address] [place] [address] Mavis Alvarado MA Test Results Social History Tobacco Use Types Packs/Day [...] on file Legal Sex Female 6:27 PM CITY MARSHAL Gender Identity Not on file Sexual Orientation Not on file documented as of this encounter Miscellaneous Notes * Telephone Encounter - Marilyn Campos NP - 06/11/2021 1:30 PM CITY MARSHAL Noted and agree. MARSHAL * Telephone Encounter - Mavis Alvarado MA - 06/11/2021 12:02 PM CITY MARSHAL Pt called today requesting results for Cologuard and Dexa. Cologuard negative. Dexa showed low bonemass advised pt to take 600 mg calcium and 2000 Ius Vitamin d with a fatty snack and weight bearingexercising 3-4 times a wk like walking or free weights. Pt verbalized understanding. MARSHAL documented in this encounter Plan of Treatment Not on file documented as of this encounter Visit Diagnoses Not on filedocumented in this encounter Care Teams Pulp Operator Relationship Specialty Start Date End Date Tim Altman MD [address] [place] [address] PCP - General 04/03/11 documented as of this encounter
--- OUTSIDE RECORDS SUMMARY | 2024-06-17 14:54 | XMS_ITS | Encounter Summary ---
Author Organization [facility] Address [address] [place] [address] Care Team Providers Care Instructional Support Assistant Name Role Phone Tim Altman MD Primary Care Provider [phone]- [phone] Reason for Referral * Diagnostic Imaging (Routine) - Closed Specialty Diagnoses / Procedures Referred By Dariela nettles Referred To Contact Diagnoses Breast cancer screening by mammogram Procedures SCREENING MAMMOGRAM BILATERAL W Marilyn Soria NP [address] [facility] [address] MATILDE Mendenhall [address] [address] Phone: tel: fax: External Order Referral ID Status Reason Start Date Expiration Date Visits Re quested Visits Authorized [id number] Closed 04/15/2021 05/15/2022 1 1 Reason for Visit * Reason Comments Annual Exam * Diagnostic Imaging (Routine) - Closed Specialty Diagnoses / Procedures Referred By Dariela nettles Referred To Contact Diagnoses Breast cancer screening by mammogram Procedures SCREENING MAMMOGRAM BILATERAL W Marilyn Soria NP 4 [facility] [address] MATILDE Mendenhall [address] [address] Phone: tel: fax: External Order Referral ID Status Reason Start Date Expiration Date Visits Re quested Visits Authorized [id number] Closed 04/15/2021 05/15/2022 1 1 Encounter Details Date Type Department Care Team (Late st Contact Info) Description 04/15/2021 9:00 AM CDT Office Visit [facility] [address] [place] [id number] Marilyn Campos NP [address] [place] [address] [address] [address] [facility] [address] [place] [address] Well woman exam (Primary Dx); Breast cancer screening by mammogram; Screening for colon cancer Social History Tobacco Use Types Packs/Day Years [...] on file 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 MWFG, who presents for a well woman exam; numerous health issuesbeing monitored by Dr. Altman; defer pap; current on mammogram, Dexa Scan and Cologuard---due for another this year---enc colonoscopy. Contraception:Menopause Menstrual History: No LMP recorded. Patient is postmenopausal. Sexual History: OB History 2 Para 2 Term AB Living 2 SAB TAB Ectopic Multiple Live Births # Outcome Date GA Labor/2nd Weight Sex Delivery Anes PTL Lv A1 A5 1 Para 2 Para Past Medical History: Diagnosis Date ??? HX OTHER MEDICAL polymyalgia Rheumatica ??? HX OTHER MEDICAL RSD ??? HX OTHER MEDICAL duecticatosis ??? HX OTHER MEDICAL gca ??? HX OTHER MEDICAL Headache, migraine ??? HX OTHER MEDICAL 1976 ; Outcome: 9 lb(s) 11 oz Female ??? HX OTHER MEDICAL 1980 ; Outcome: 10 lb(s) 2 oz Male ??? Hypertension Hypertension ??? Irritable bowel syndrome Irritable bowel disease ??? Primary fibromyalgia syndrome Fibromyalgia ??? Tension headache Headache, tension Current Outpatient Medications: ??? acetaminophen (TYLENOL) 325 mg tablet, take 1 tablet by oral route every 4 hours as needed, Disp: , Rfl: 0 ??? B.breve-L.acid-L.rham-S.thermo 3 billion cell tablet,chewable, Take by mouth. Gabriel Anderson, Disp: , Rfl: ??? carbidopa-levodopa CR (SINEMET CR) 50-200 mg per CR tablet, take 1 tablet by oral route 2 timesevery day, Disp: 0, Rfl: 0 ??? celecoxib (CeleBREX) 200 mg capsule, Take 200 mg by mouth 2 (two) times a day, Disp: , Rfl: ??? CYANOCOBALAMIN, VITAMIN B-12, ORAL, Take 100 mcg by mouth daily., Disp: , Rfl: ??? folic acid (FOLVITE) 1 mg tablet, take 1 tablet by oral route every day, Disp: 0, Rfl: 0 ??? gabapentin (NEURONTIN) 600 mg tablet, take 1 tablet by oral route 3 times every day, Disp: 0, Rfl: 0 ??? golimumab (SIMPONI) 100 mg/mL pen injector, 100 mg every 8 (eight) weeks , Disp: , Rfl: ??? methotrexate 2.5 mg tablet, take 1 tablet by oral route every 12 hours for 3 doses given as a course once weekly, Disp: 0, Rfl: 0 ??? metoprolol (LOPRESSOR) 25 mg tablet, take 1 tablet (25MG) by oral route 2 times every day, Disp: , Rfl: 0 ??? morphine (MSIR) 15 mg tablet, Take 15 mg by mouth every 4 (four) hours as needed, Disp: , Rfl: ??? omeprazole (PriLOSEC) 40 mg capsule, take 1 capsule by oral route every day before a meal, Disp: 0, Rfl: 0 ??? ondansetron (ZOFRAN) 4 mg tablet, Take 4 mg by mouth every 8 (eight) hours as needed for nauseaor vomiting, Disp: , Rfl: ??? predniSONE (DELTASONE) 5 mg tablet, take (0.5MG/KG) by oral route every day, Disp: 0, Rfl: 0 ??? traMADol (ULTRAM) 50 mg tablet, 50 mg., Disp: , Rfl: 0 Allergies Allergen Reactions ??? Adhesive Tape-Silicones Rash ??? Amitriptyline Rash ??? Codeine Chest tightness ??? Crestor [Rosuvastatin] Muscle pain ??? Hydrocodone Chest tightness ??? Penicillins Rash ??? Surgilube [Surgical Lubricant Jelly] Rash Patient call in after exam and states this made her vagina irritated ??? Keftab [Cephalexin Hcl] Unknown ??? Provera Cp Unknown ??? Sulfa (Sulfonamide Antibiotics) Unknown ??? Vicodin [Hydrocodone-Acetaminophen] Unknown ??? Vytorin 10-10 [Ezetimibe-Simvastatin] Unknown ??? Zinc Citrate-Phytase Unknown ??? Fluorescein-Proparacaine Unknown Family History Problem Relation Age of Onset ??? Hypertension Mother Hypertension; ??? Heart disease Mother Heart disease; ??? Thyroid disease Mother Thyroid disease; ??? Cancer Mother cancer; ??? Osteoporosis Mother Osteoporosis; ??? Breast cancer Mother's Sister Cancer, breast; ??? Ovarian cancer Mother's Sister Cancer, ovarian; ??? Heart disease Father Heart disease; ??? Heart disease Other Heart disease; Social History Socioeconomic History ??? Marital status: Spouse name: None ??? Number of children: None ??? Years of education: None ??? Highest education level: None Occupational History ??? None Tobacco Use ??? Smoking status: Never Smoker ??? Smokeless tobacco: Never Used Substance and Sexual Activity ??? Alcohol use: No ??? Drug use: No ??? Sexual activity: None Other Topics Concern ??? None Social History Narrative History of Child Abuse: n History of Domenstic Violence: n Social Determinants of Health Financial Resource Strain: ??? Difficulty of Paying Living Expenses: Not on file Food Insecurity: ??? Worried About Running Out of Food in the Last Year: Not on file ??? Ran Out of Food in the Last Year: Not on file Transportation Needs: ??? Lack of Transportation (Medical): Not on file ??? Lack of Transportation (Non-Medical): Not on file Physical Activity: ??? Days of Exercise per Week: Not on file ??? Minutes of Exercise per Session: Not on file Stress: ??? Feeling of Stress : Not on file Social Connections: ??? Frequency of Communication with Friends and Family: Not on file ??? Frequency of Social Gatherings with Friends and Family: Not on file ??? Attends Yarsanism Services: Not on file ??? Active Member of Clubs or Organizations: Not on file ??? Attends Club or Organization Meetings: Not on file ??? Marital Status: Not on file Intimate Partner Violence: ??? Fear of Current or Ex-Partner: Not on file ??? Emotionally Abused: Not on file ??? Physically Abused: Not on file ??? Sexually Abused: Not on file Review of Systems Constitutional: Positive for fatigue. Negative for chills, fever and unexpected weight change. HENT: Negative for hearing loss, sore throat, tinnitus and trouble swallowing. Dry eyes---foreign body sensation Eyes: Negative for pain and visual disturbance. Respiratory: Negative for cough, shortness of breath and wheezing. Cardiovascular: Negative for chest pain, palpitations and leg swelling. Gastrointestinal: Negative for abdominal pain, blood in stool, constipation, diarrhea, nausea and vomiting. Endocrine: Negative for cold intolerance, heat intolerance and polydipsia. Genitourinary: Negative for dyspareunia, dysuria, frequency, hematuria, menstrual problem, pelvic pain, vaginal bleeding and vaginal discharge. Musculoskeletal: Positive for arthralgias and back pain. Negative for joint swelling and myalgias. Skin: Positive for color change (hands and feet in the cold.). Negative for rash. Neurological: Negative for dizziness, numbness and headaches. Hematological: Does not bruise/bleed easily. Psychiatric/Behavioral: Negative for dysphoric mood, sleep disturbance and suicidal ideas. The patient is not nervous/anxious. Objective: BP 138/74 (BP Location: Right arm, Patient Position: Sitting) Ht 162.6 cm (5' 4 ) Wt 203 lb 3.2oz (92.2 kg) BMI 34.88 kg/m?? Physical Exam Vitals reviewed. Constitutional: Appearance: She is well-developed. She is obese. Eyes: Pupils: Pupils are equal, round, and reactive to light. Neck: Thyroid: No thyromegaly. Comments: No thyromegaly or tenderness Cardiovascular: Rate and Rhythm: Normal rate and regular rhythm. Heart sounds: Normal heart sounds. Pulmonary: Effort: Pulmonary effort is normal. Breath sounds: Normal breath sounds. Chest: Breasts: Breasts are symmetrical. Right: No mass or skin change. Left: No mass or skin change. Abdominal: Palpations: Abdomen is soft. Comments: No hepatosplenomegaly or tenderness Genitourinary: General: Normal vulva. Exam position: Lithotomy position. Labia: Right: No lesion. Left: No lesion. Vagina: Normal. No vaginal discharge. Cervix: No cervical motion tenderness, discharge or friability. Uterus: Not tender. Adnexa: Right: No tenderness. Left: No tenderness. Rectum: Normal. Guaiac result negative. Musculoskeletal: General: Normal range of motion. Cervical back: Normal range of motion. Lymphadenopathy: Upper Body: Right upper body: No axillary adenopathy. Left upper body: No axillary adenopathy. Lower Body: No right inguinal adenopathy. No left inguinal adenopathy. Skin: General: Skin is warm and dry. Neurological: Mental Status: She is alert and oriented to person, place, and time. Psychiatric: Mood and Affect: Mood normal. Behavior: Behavior normal. Immunizations: discussed. Assessment and Plan: Normal exam. Diagnoses and all orders for this visit: Well woman exam (Primary) Comments: Defer pap; enc dietary [id number]/day; wt bearing exercise 3-4x/week; Vit d 2,000 IUs/day; keepall PCP appts; call with gyne health issues. Breast cancer screening by mammogram Comments: Await mammogram results; enc monthly SBEs and annual mammogram screenings Orders: - SCREENING MAMMOGRAM BILATERAL W RAFAEL; Future Screening for colon cancer - POCT fecal occult blood Recommended screenings and preventive care discussed: Breast cancer: Breast Self Exam encouraged. Pap deferred, Calcium and vitamin D discussed. and Cholesterol followed by PCP Low fat diet and exercise encouraged. Marilyn Campos NP 04/15/2021 documented in this encounter Plan of Treatment Scheduled Orders Name Type Priority Associated Diagnoses Orde r Schedule SCREENING MAMMOGRAM BILATERAL W RAFAEL Imaging Schedule Routine, Read Routine (OP Routine) Breast cancer screening by mammogram Expected: 04/15/2021, Expires: 06/15/2022 documented as of this encounter Procedures Procedure Name Priority Date/Time Associated Diagnosis Comments POCT FECAL OCCULT BLOOD, NOT FOR NEOPLASM SCREENING Routine 04/15/2021 9:20 AM CDT Screening for colon cancer documented in this encounter Results * POCT fecal occult blood (04/15/2021 9:20 AM CDT) Fecal Globin, POC negative Rectal swab 04/15/2021 9:20 AM CDT Marilyn Campos NUTRIENT MANAGEMENT SPECIALIST POINT OF CARE TEST ORDERA BLES Final Result documented in this encounter Visit Diagnoses Diagnosis Well woman exam- Primary Routine general medical examination at a health care facility Breast cancer screening by mammogram Screening for colon cancer Special screening for malignant neoplasms, colon documented in this encounter Discontinued Medications Medication Sig Discontinue Reason Start Date End Da te calcium 500 mg tablet 500 mg. Therapy completed 09/24/2010 04/15/20 21 cholecalciferol (VITAMIN D3) 2,000 unit capsule Therapy completed 09/24/2010 04/15/2021 documented as of this encounter Historical Medications * This list may reflect changes made after this encounter. ondansetron (ZOFRAN) 4 mg tablet Take 1 tablet (4 mg total) by mouth every 8 (eight) hours as needed for nausea or vomiting celecoxib (CeleBREX) 200 mg capsule Take 1 capsule (200 mg total) by mouth 2 (two) times a day morphine (MSIR) 15 mg tablet Take 1 tablet (15 mg total) by mouth every 4 (four) hours as needed 05/06/2024 added in this encounter Care Teams Instructional Support Assistant Relationship Specialty Start Date End Date Tim Altman MD [address] [place] [address] PCP - General 04/03/11 documented as of this encounter
--- OUTSIDE RECORDS SUMMARY | 2024-06-17 14:54 | XMS_ITS | Encounter Summary ---
Author Organization [facility] Address [address] [place] [address] Care Team Providers Care Nurses' Aide Name Role Phone Tim Altman MD Primary Care Provider [phone]- [phone] Reason for Referral * Diagnostic Imaging (Routine) - Closed Specialty Diagnoses / Procedures Referred By Contac t Referred To Contact Procedures Dexa Axial Skeleton Bone Density 1 or 2 Site Marilyn Campos NP [address] [facility] [address] MATILDE Mendenhall [address] [place] [address] Phone: tel: fax: [facility] Referral ID Status Reason Start Date Expiration Date Visits Re quested Visits Authorized [id number] Closed 12/21/2020 01/20/2022 1 1 Encounter Details Date Type Department Care Team (Late st Contact Info) Description 12/21/2020 Orders Only [facility] [address] [facility] [address] [place] [address] Marilyn Campos NP [address] [facility] [address] MATILDE Mendenhall [address] [place] [address] Social History Tobacco Use Types Packs/Day Years Used Date Smoking Tobacco: Never Smokeless Tobacco: Never Alcohol Use Standard Drinks/Week Comments No 0 (1 standard drink = 0.6 oz pur e alcohol) PHQ-2 Answer Date Recorded PHQ-2 Score 0 02/03/2019 Comments No Sex and Gender Information Value Date Recorded Sex Assigned at Not on file 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 Gender Identity Not on file Sexual Orientation Not on file documented as of this encounter Plan of Treatment Not on file documented as of this encounter Procedures Procedure Name Priority Date/Time Associated Diagnosis Comments DEXA AXIAL SKELETON BONE DENSITY 1 OR MORE SITES Schedule Routine, Read Routine (OP Routine) 12/18/2020 documented in this encounter Results * Dexa Axial Skeleton Bone Density 1 or 2 Site (12/18/2020) Anatomical Region Laterality Modality Body N/A Radiographic Irma ging Marilyn Campos FREIGHT CHECKER IMG DXA PROCEDURES Final Result documented in this encounter Visit Diagnoses Not on filedocumented in this encounter Care Teams Nurses' Aide Relationship Specialty Start Date End Date Tim Altman MD [address] [place] [address] PCP - General 04/03/11 documented as of this encounter
--- OUTSIDE RECORDS SUMMARY | 2024-06-17 14:54 | XMS_ITS | Encounter Summary ---
Author Organization [facility] Address [address] [facility] [address] [place] [address] Care Team Providers Care Steeler Name Role Phone Tim Altman MD Primary Care Provider [phone]- [phone] Encounter Details Date Type Department Care Team (Late st Contact Info) Description 02/08/2018 Orders Only [facility] [address] [facility] [address] [place] [address] Tim Altman MD [address] [place] [address] Social History Tobacco Use Types Packs/Day Years Used Date Smoking Tobacco: Never Smokeless Tobacco: Never Alcohol Use Standard Drinks/Week Comments No 0 (1 standard drink = 0.6 oz pur e alcohol) Comments No Sex and Gender Information Value Date Recorded Sex Assigned at Not on file 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 COLOGUARD Routine 01/12/2018 documented in this encounter Results * Stool DNA - Cologuard (01/12/2018) Stool Tim Altman MD LAB BODY FLUIDS AND STOOLS OR DERABLES Final Result documented in this encounter Visit Diagnoses Not on filedocumented in this encounter Care Teams Steeler Relationship Specialty Start Date End Date Tim Altman MD [address] [place] [address] PCP - General 04/03/11 documented as of this encounter
--- OUTSIDE RECORDS SUMMARY | 2024-06-17 14:54 | XMS_ITS | Clinical Summary ---
Author Organization [facility] Address [address] [place] [address] Care Team Providers Care Associate Director Of Sales Name Role Phone Tim Altman MD Primary Care Provider [phone]- [phone] Allergies Active Allergy Reactions Criticality Noted Date Comments Adhesive Tape-Silicones Rash Medium Amitriptyline Rash Medium Codeine Chest tightness Medium Rosuvastatin Muscle pain Medium Fluorescein-Proparacaine Unknown Low 12/30/2018 Hydrocodone Chest tightness Medium Cephalexin Hcl Unknown 12/30/2018 Penicillins Rash Medium Provera Cp Unknown 12/30/2018 Sulfa (Sulfonamide Antibiotics) Unknown 12/30/2018 Surgical Lubricant Jelly Rash Medium 01/10/2019 Patient call in after exam and states this made her vagina irritated Hydrocodone-Acetaminophen Unknown 12/30/2018 Ezetimibe-Simvastatin Unknown 12/30/2018 Zinc Citrate-Phytase Unknown 12/30/2018 Medications methotrexate 2.5 mg tablet take 1 tablet by oral route every 12 hours for 3 doses given as a course once weekly 0 0 10/19/2013 Active gabapentin (NEURONTIN) 600 mg tablet take 1 tablet by oral route 3 times every day 0 0 10/19/2013 Active omeprazole (PriLOSEC) 40 mg capsule take 1 capsule by oral route every day before a meal 0 0 10/19/2013 Active folic acid (FOLVITE) 1 mg tablet take 1 tablet by oral route every day 0 0 10/19/2013 Active predniSONE (DELTASONE) 5 mg tablet take (0.5MG/KG) by oral route every day 0 0 10/19/2013 Active carbidopa-levod opa CR (SINEMET CR) 50-200 mg per CR tablet take 1 tablet by oral route 2 times every day 0 0 10/30/2014 Active metoprolol (LOPRESSOR) 25 mg tablet take 1 tablet (25MG) by oral route 2 times every day 0 09/24/2010 Active acetaminophen (TYLENOL) 325 mg tablet take 1 tablet by oral route every 4 hours as needed 0 11/19/2010 Active CYANOCOBALAMIN, VITAMIN B-12, ORALIndications :Prevention of Vitamin B12 Deficiency Take 100 mcg by mouth daily. Active B.breve-L.acid- L.rham-S.thermo 3 billion cell tablet,chewable Take by mouth. Brand Monica Active golimumab (SIMPONI) 100 mg/mL pen injector 1 mL (100 mg total) every 8 (eight) weeks Active celecoxib (CeleBREX) 200 mg capsule Take 1 capsule (200 mg total) by mouth 2 (two) times a day Active ondansetron (ZOFRAN) 4 mg tablet Take 1 tablet (4 mg total) by mouth every 8 (eight) hours as needed for nausea or vomiting Active aspirin 81 mg enteric coated tablet Take 1 tablet (81 mg total) by mouth daily Active Active Problems Problem Noted Date Diagnosed Date Tibial plateau fracture, left 05/09/2024 Fibrositis 04/07/2012 Overview (09/19/2016): Fibromyalgia Hypertension 04/07/2012 Overview (09/19/2016): Hypertension Osteoarthritis 04/07/2012 Overview (09/19/2016): Osteoarthritis Osteoporosis 04/07/2012 Overview (09/19/2016): Osteoporosis Encounters Date Type Department Care Team Description 05/25/2024 12:58 PM CAGE FIGHTER - 05/25/2024 11:59 PM CAGE FIGHTER Hospital Encounter [facility] [address] [place] [address] A, Kaushal. [address] [place] [id number] Gregory Roman MD Lumbar radiculopathy Discharge Disposition: Discharge to home or self care 05/06/2024 3:04 PM CAGE FIGHTER - 05/06/2024 11:59 PM CAGE FIGHTER Hospital Encounter [facility] [address] [place] [address] A, Kaushal. [address] [place] [address] Gregory Roman MD Lumbar radiculopathy (Primary Dx); Closed fracture of left tibial plateau Discharge Disposition: Discharge to home or self care from Last 3 Months Surgical History Surgery Date Site/Laterality Comments OTHER SURGICAL HISTORY 2006 d&c and hysteroscopy OTHER SURGICAL HISTORY 2006 catherization OTHER SURGICAL HISTORY 2006 endoscopie HAND SURGERY 2009 hand surgery ELBOW SURGERY 2009 elbow surgery OTHER SURGICAL HISTORY 2001 dianelys surgery OTHER SURGICAL HISTORY 2010 biopsy of temoral artery ABLATION 2004 Ablation FOOT SURGERY Left foot surgery CARPAL TUNNEL RELEASE Right carpal tunnel release ELBOW SURGERY Right elbow surgery TUBAL LIGATION BTL Medical History Medical History Date Comments Hx Other Medical polymyalgia Rhe umatica Hx Other Medical RSD Hx Other Medical duecticatosis Irritable bowel syndrome Irritab le bowel disease Hx Other Medical gca Primary fibromyalgia syndrome Fi bromyalgia Hx Other Medical Headache, migra ine Hypertension Hypertension Tension headache Headache, tensi on Hx Other Medical 1976 ; Outc ome: 9 lb(s) 11 oz Female Hx Other Medical 1980 ; Outc ome: 10 lb(s) 2 oz Male Family History Medical History Relation Name Comments Heart disease Father Heart disease; Cancer Mother cancer; Heart disease Mother Heart disease; Hypertension Mother Hypertension; Osteoporosis Mother Osteoporosis; Thyroid disease Mother Thyroid dise ase; Breast cancer Mother's Sister 1 x 2 Cancer, b reast; Ovarian cancer Mother's Sister 2 Cancer, ovarian; Heart disease Other Mother's side Heart disease ; Relation Name Status Comments Father Mother Mother's Sister 1 x 2 Mother's Sister 2 Other Mother's side Social History Tobacco Use Types Packs/Day Years Used Date Smoking Tobacco: Never Smokeless Tobacco: Never Alcohol Use Standard Drinks/Week Comments No 0 (1 standard drink = 0.6 oz pur e alcohol) PHQ-2 Answer Date Recorded PHQ-2 Total Score (If total score is 3 or more points, staff should administer the PHQ-9) 0 05/06/2024 Comments No Sex and Gender Information Value Date Recorded Sex Assigned at Not on file Legal Sex Female 6:27 PM CAGE FIGHTER Gender Identity Not on file Sexual Orientation Not on file Obstetrics History Para Term AB IAB SAB Ectopic Multiple Livin g Live Births 2 2 2 Date Outcome GA Total Labor Labor/2nd/3rd Weight Sex Type Anes PTL Raya A1 A5 Name Clin Para Para Last Filed Vital Signs Vital Sign Reading Time Taken Comments Blood Pressure 128/74 05/25/2024 1:56 PM CAGE FIGHTER Pulse 101 05/25/2024 1:56 PM CAGE FIGHTER Temperature 36.4 ??C (97.5 ??F) 05/25/2024 1:06 PM CS T Respiratory Rate 18 05/25/2024 1:56 PM CAGE FIGHTER Oxygen Saturation 96% 05/25/2024 1:56 PM CAGE FIGHTER Inhaled Oxygen Concentration - - Weight 92.2 kg (203 lb 3.2 oz) 04/15/2021 9:07 A M CDT Height 162.6 cm (5' 4 ) 04/15/2021 9:07 AM CDT Body Mass Index 34.88 04/15/2021 9:07 AM CDT Plan of Treatment Health Maintenance Due Date Last Done Comments Colon Cancer Screening-Colonoscopy 1954 Fall Risk Assessment 1954 Hepatitis C Screening 1954 Pneumococcal vaccine 65+ (1 of 2 - PCV) 1960 DTaP/Tdap/Td Vaccine (1 - Tdap) 1965 Hepatitis B Screening 1972 Zoster Vaccine (1 of 2) 1973 Well Visit 65+ 12/31/2019 12/30/2018, 0710/2017, 12/11/2016 Osteoporosis Screening-Bone Density Scan 12/18/2022 12/18/2020, 12/18/2020, 12/18/2020, Additional history exists Breast Cancer Screening-Mammogram 08/29/2023 08/28/2022, 08/28/2022, 07/17/2020, Additional history exists Influenza Vaccine (#1) 2024 Depression Screening 05/06/2025 05/06/2024, 05/06/2024, 04/15/2021, Additional history exists Colon Cancer Screening-DNA Stool Discontinued 05/20/20, 01/12/2018 Colon Cancer Screening-FIT Discontinued 05/20/2021, Goals Goal Patient Goal Type Associated Problems Recent Progress Patient-Stated? Author [facility] Janice Newman, RN Note: Patient will establish a comfort-function goal and identify the pain level that will allow the patient to perform desired activities and achieve an acceptable quality of life. Procedures Procedure Name Priority Date/Time Associated Diagnosis Comments PAIN MGMT IMAGING LUMBAR/SACRAL SELECTIVE NERVE ROOT INJ (TFE) LEFT Schedule Routine, Read Routine (OP Routine) 05/25/2024 1:54 PM CAGE FIGHTER Lumbar radiculopathy STOOL DNA ? COLOGUARD Routine 05/20/2021 6:25 AM CAGE FIGHTER Screening for colon cancer DEXA AXIAL SKELETON BONE DENSITY 1 OR MORE SITES Schedule Routine, Read Routine (OP Routine) 12/18/2020 MAMMOGRAPHY Schedule Routine, Read Routine (OP Routine) 07/17/2020 from Last 3 Months or Most Recently Relevant to Health Maintenance Results * Imaging Lumbar/Sacral Selective Nerve Root INJ (TFE) Left (17533) (05/25/2024 1:54 PM CAGE FIGHTER) Narrative [facility] - 05/25/2024 1:55 PM CAGE FIGHTER The images from this study are not interpreted by Radiology. ??Please refer to the physician's procedure / OR operative note. us Gregory Roman MD IM PAIN MGMT PROCEDURE S Final Result [facility] * Stool DNA - Cologuard (05/20/2021 6:25 AM CAGE FIGHTER) Stool DNA - Cologuard Negative Negative [facility] (CLIA #:[id number]) Comment: NEGATIVE TEST RESULT. A negative Cologuard [...] cancer. ??Following a negative Cologuard result, the [place] [employer] and U.S. Multi-Society Task Force screening guidelines recommend a Cologuard re-screening interval of 3 years. References: [place] [employer] Guideline for Colorectal Cancer Screening: https://www.cancer.org/cancer/quwhh-xipkkw-ijlski/pcwbkuntu-bnljtfvct-idciwac/ac s-rec ommendations.html.; Uriah PRINCE, Karina HARTMANN, Kamlesh VillalpandoK, Colorectal Cancer Screening: Recommendations for Physicians and Patients from the U.S. Multi-Society Task Force on Colorectal Cancer Screening , Am J Gastroenterology 2017; 112:6358-4429. TEST DESCRIPTION: Composite algorithmic analysis of stool [...] (Mumtaz Echeverria al, N Engl J Med 2014;370(14):9278-2113.) Cologuard may produce a false negative or false positive result (no colorectal cancer or precancerous polyp present at colonoscopy follow up). A negative Cologuard test result does not guarantee the absence of CRC or advanced adenoma (pre-cancer). The current Cologuard screening interval is every 3 years. ([place] [employer] and U.S. Multi-Society Task Force). Cologuard performance data in a 10,000 patient pivotal study using colonoscopy as the reference method can be accessed at the following location: www.[employer]/results. Additional description of the Cologuard test process, warnings and precautions can be found at www.[employer].com. Stool 05/20/2021 6:25 AM CAGE FIGHTER 05/21/2021 12:01 PM CAGE FIGHTER Marilyn Campos NP LAB BODY FLUIDS AND STOOL S ORDERABLES Final Result Performing Organization Address City/State/[facility] Co de Phone Number Proenza Schouer (CLIA #:[id number]) [place] [address] * Dexa Axial Skeleton Bone Density 1 or 2 Site (12/18/2020) Anatomical Region Laterality Modality Body N/A Radiographic Irma ging Marilyn Campos FOUR H AGENT IMG DXA PROCEDURES Final Result * MAMMOGRAPHY (07/17/2020) Anatomical Region Laterality Modality Breast Mammography Marilyn Campos FOUR H AGENT IMG MAMMO PROCEDURES Bety l Result from Last 3 Months or Most Recently Relevant to Health Maintenance Insurance [facility] [place] EXCHANGE MEDICARE [facility] MEDICARE [facility] Care Teams Associate Director Of Sales Relationship Specialty Start Date End Date Tim Altman MD [address] [place] [address] PCP - General 04/03/11
--- OUTSIDE RECORDS SUMMARY | 2024-06-17 14:54 | XMS_ITS | Encounter Summary ---
Author Organization [facility] Address [address] [place] [address] Care Team Providers Care Post Splitter Name Role Phone Tim Altman MD Primary Care Provider +1- [phone] Reason for Referral * Diagnostic Imaging (Routine) - Closed Specialty Diagnoses / Procedures Referred By Controssana t Referred To Contact Procedures MAMMOGRAPHY Marilyn Campos NP Phone: tel: fax: Referral ID Status Reason Start Date Expiration Date Visits Re quested Visits Authorized [id number] Closed 01/05/2019 07/16/2020 1 1 Encounter Details Date Type Department Care Team (Late st Contact Info) Description 01/05/2019 Orders Only [facility] [address] [facility] [address] [place] [address] Marilyn Campos NP [address] [place] [address] [address] [place] [address] Social History Tobacco Use Types Packs/Day Years Used Date Smoking Tobacco: Never Smokeless Tobacco: Never Alcohol Use Standard Drinks/Week Comments No 0 (1 standard drink = 0.6 oz pur e alcohol) Comments No Sex and Gender Information Value Date Recorded Sex Assigned at Not on file Legal Sex Female 6:27 PM GYN Gender Identity Not on file Sexual Orientation Not on file documented as of this encounter Plan of Treatment Not on file documented as of this encounter Procedures Procedure Name Priority Date/Time Associated Diagnosis Comments MAMMOGRAPHY Schedule Routine, Read Routine (OP Routine) 12/30/2018 documented in this encounter Results * MAMMOGRAPHY (12/30/2018) Anatomical Region Laterality Modality Breast Mammography Marilyn Campos PROJECT PROGRAM MANAGER IMG MAMMO PROCEDURES Bety l Result documented in this encounter Visit Diagnoses Not on filedocumented in this encounter Care Teams Post Splitter Relationship Specialty Start Date End Date Tim Altman MD [address] [place] [address] PCP - General 04/03/11 documented as of this encounter
--- OUTSIDE RECORDS SUMMARY | 2024-06-17 14:54 | XMS_ITS | Encounter Summary ---
Author Organization [facility] Care Team Providers Care Flat Machine Cutter Name Role Phone Tim Altman MD Primary Care Provider +1- [phone] Encounter Details Date Type Department Care Team (Latest Contact Info) Description 12/30/2018 Travel Social History Tobacco Use Types Packs/Day Years Used Date Smoking Tobacco: Never Smokeless Tobacco: Never Alcohol Use Standard Drinks/Week Comments No 0 (1 standard drink = 0.6 oz pur e alcohol) Comments No Sex and Gender Information Value Date Recorded Sex Assigned at Not on file Legal Sex Female 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
--- OUTSIDE RECORDS SUMMARY | 2024-06-17 14:54 | XMS_ITS | Encounter Summary ---
Author Organization [facility] Address [address] [place] [address] Care Team Providers Care Rubber Moulding Machine Operator Name Role Phone Tim Altman MD Primary Care Provider +1- [phone] Reason for Referral * Diagnostic Imaging (Routine) - Closed Specialty Diagnoses / Procedures Referred By Contac t Referred To Contact Procedures Dexa Axial Skeleton Bone Density 1 or 2 Site Marilyn Campos NP [address] [place] [address] Phone: tel: fax: [facility] Referral ID Status Reason Start Date Expiration Date Visits Re quested Visits Authorized [id number] Closed 06/06/2021 07/06/2022 1 1 WORKER Encounter Details Date Type Department Care Team (Late st Contact Info) Description 06/06/2021 Orders Only [facility] [address] [facility] [address] [place] [address] Marilyn Campos NP [address] [place] [address] Social History Tobacco Use Types Packs/Day Years [...] on file Legal Sex 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
--- OUTSIDE RECORDS SUMMARY | 2024-06-17 14:54 | XMS_ITS | Encounter Summary ---
Author Organization [facility] Address [address] [place] [address] Care Team Providers Care Clinical Reviewer Name Role Phone Tim Altman MD Primary Care Provider [phone] Reason for Visit * Reason Comments Gynecologic Exam Encounter Details Date Type Department Care Team (Late st Contact Info) Description 12/30/2018 8:00 AM CDT Office Visit [facility] [address] [place] [address] Marilyn Campos, KARTHIK [address] [facility] [address] [place] [address] Well woman exam (Primary Dx); Screen for colon cancer Social History Tobacco Use Types Packs/Day Years Used Date Smoking Tobacco: Never Smokeless Tobacco: Never Alcohol Use Standard Drinks/Week Comments No 0 (1 standard drink = 0.6 oz pur e alcohol) Comments No Sex and Gender Information Value Date Recorded Sex Assigned at Not on file 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 MWF, who presents for a well woman exam; numerous health issues;normal pap last year so will defer this year; negative Cologuard last sherri also. Contraception:Menopause Menstrual History: No LMP recorded. Patient [...] mouth. Gabriel Anderson, Disp: , Rfl: ??? calcium 500 mg tablet, 500 mg., Disp: , Rfl: 0 ??? carbidopa-levodopa CR (SINEMET CR) 50-200 mg per CR tablet, take 1 tablet by oral route 2 timesevery day, Disp: 0, Rfl: 0 ??? cholecalciferol (VITAMIN D3) 2,000 unit capsule, , Disp: , Rfl: 0 ??? CYANOCOBALAMIN, VITAMIN B-12, ORAL, Take 100 mcg by mouth daily., Disp: , Rfl: ??? folic acid (FOLVITE) 1 mg tablet, take 1 tablet by oral route every day, Disp: 0, Rfl: 0 ??? gabapentin (NEURONTIN) 600 mg tablet, take 1 tablet by oral route 3 times every day, Disp: 0, Rfl: 0 ??? golimumab (SIMPONI) 100 mg/mL pen injector, 100 mg every 28 (twenty-eight) days, Disp: , Rfl: ??? methotrexate 2.5 mg tablet, take 1 tablet by oral route every 12 hours for 3 doses given as a course once weekly, Disp: 0, Rfl: 0 ??? metoprolol (LOPRESSOR) 25 mg tablet, take 1 tablet (25MG) by oral route 2 times every day, Disp: , Rfl: 0 ??? omeprazole (PriLOSEC) 40 mg capsule, take 1 capsule by oral route every day before a meal, Disp: 0, Rfl: 0 ??? predniSONE (DELTASONE) 5 mg tablet, take (0.5MG/KG) by oral route every day, Disp: 0, Rfl: 0 ??? traMADol (ULTRAM) 50 mg tablet, 50 mg., Disp: , Rfl: 0 Allergies Allergen Reactions ??? Adhesive Tape-Silicones Rash ??? Amitriptyline Rash ??? Codeine Chest tightness ??? Crestor [Rosuvastatin] Muscle pain ??? Hydrocodone Chest tightness ??? Penicillins Rash ??? Keftab [Cephalexin Hcl] Unknown ??? Provera [...] education level: None Occupational History ??? None Social Needs ??? Financial resource strain: None ??? Food insecurity: Worry: None Inability: None ??? Transportation needs: Medical: None Non-medical: None Tobacco Use ??? Smoking status: Never Smoker ??? Smokeless tobacco: Never Used Substance and Sexual Activity ??? Alcohol use: No ??? Drug use: No ??? Sexual activity: None Lifestyle ??? Physical activity: Days per week: None Minutes per session: None ??? Stress: None Relationships ??? Social connections: Talks on phone: None Gets together: None Attends protestant service: None Active member of club or organization: None Attends meetings of clubs or organizations: None Relationship status: None ??? Intimate partner violence: Fear of current or ex partner: None Emotionally abused: None Physically abused: None Forced sexual activity: None Other Topics Concern ??? None Social History Narrative History of Child Abuse: n History of Domenstic Violence: n Review of Systems Constitutional: Positive for fatigue. Negative for chills, fever and unexpected weight change. HENT: Negative for hearing loss, sore throat, tinnitus and trouble swallowing. Dry eyes; foreign body sensation; Eyes: Negative for pain and visual disturbance. [...] bleeding and vaginal discharge. Musculoskeletal: Positive for arthralgias, back pain and joint swelling. Negative for myalgias. Skin: Negative for color change and rash. Neurological: Negative for dizziness, numbness and headaches. Hematological: Bruises/bleeds easily. Psychiatric/Behavioral: Negative for dysphoric mood, sleep disturbance and suicidal ideas. The patient is not nervous/anxious. Objective: BP 140/82 Ht 162.6 cm (5' 4 ) Wt 207 lb (93.9 kg) BMI 35.53 kg/m?? Physical Exam Constitutional: She is oriented to person, place, and time. She appears well- developed and well-nourished. obese Eyes: Pupils are equal, round, and reactive to light. Neck: Normal range of motion. No thyromegaly present. Cardiovascular: Normal rate, regular rhythm and normal heart sounds. Pulmonary/Chest: Effort normal and breath sounds normal. Right breast exhibits no mass and no skin change. Left breast exhibits no mass and no skin change. No breast swelling, tenderness, discharge or bleeding. Breasts are symmetrical. Abdominal: Soft. Genitourinary: Rectum normal, vagina normal and uterus normal. Rectal exam shows guaiac negative stool. No breast swelling, tenderness, discharge or bleeding. Pelvic exam was performed with patient supine. There is no lesion on the right labia. There is no lesion on the left labia. Cervix exhibits no motion tenderness, no discharge and no friability. Right adnexum displays no tenderness. Left adnexum displays no tenderness. No vaginal discharge found. Musculoskeletal: Normal range of motion. Lymphadenopathy: She has no cervical adenopathy. No inguinal adenopathy noted on the right or left side. Left: No inguinal adenopathy present. Neurological: She is alert and oriented to person, place, and time. Skin: Skin is warm and dry. Psychiatric: She has a normal mood and affect. Her behavior is normal. Vitals reviewed. Immunizations: discussed. Assessment and Plan: Normal exam. Diagnoses and all orders for this visit: Well woman exam (Primary) Comments: Enc monthly SBEs and annual mammogram screenings. dietary ceuuctb=[id number]/day/ Vit D 2,000 IUs/day; wt bearing exercise 3-4x/week. Screen for colon cancer Comments: Hemosure negative; enc colonoscopy if possible. Orders: - POCT fecal occult blood Recommended screenings and preventive care discussed: Breast cancer: Breast Self Exam encouraged. Pap deferred, Calcium and vitamin D discussed. and Cholesterol followed by PCP Low fat diet and exercise encouraged. Marilyn Campos NP 12/30/2018 documented in this encounter Plan of Treatment Not on file documented as of this encounter Procedures Procedure Name Priority Date/Time Associated Diagnosis Comments POCT FECAL OCCULT BLOOD, NOT FOR NEOPLASM SCREENING Routine 12/30/2018 9:03 AM CDT Screen for colon cancer documented in this encounter Results * POCT fecal occult blood (12/30/2018 9:03 AM CDT) Fecal Globin, POC neg Rectum 12/30/2018 9:03 AM CDT Marilyn Campos THERAPIST PHYSICAL POINT OF CARE TEST ORDERA BLES Final Result documented in this encounter Visit Diagnoses Diagnosis Well woman exam- Primary Routine general medical examination at a health care facility Screen for colon cancer Special screening for malignant neoplasms, colon documented in this encounter Discontinued Medications Medication Sig Discontinue Reason Start Date End Da te terconazole (TERAZOL 7) 0.4 % vaginal creamIndications:Vulvov aginal Candidiasis Insert 1 applicator into the vagina nightly. Therapy completed 12/21/2017 12/30/2018 pregabalin (LYRICA) 75 mg capsule take 1 capsule (75MG) by oral route 2 times every day Therapy completed 09/24/2010 12/30/2018 sertraline (ZOLOFT) 100 mg tablet take 1 tablet by oral route every day Therapy completed 10/19/2013 12/30/2018 adalimumab (HUMIRA) 40 mg/0.8 mL syringe kit Therapy completed 10/30/2014 12/31/19 19 inFLIXimab (REMICADE) 100 mg injection Pt states its IV every six weeks Therapy completed 12/30/2018 ondansetron (ZOFRAN) 4 mg tablet TAKE 2 TABLETS (8 MG) BY ORAL ROUTE EVERY 12 HOURS Therapy completed 12/09/2018 12/30/2018 rOPINIRole (REQUIP) 1 mg tablet TAKE 1 TABLET (1 MG) BY ORAL ROUTE 1-3 HOURS BEFORE BEDTIME Therapy completed 12/09/2018 12/30/2018 documented as of this encounter Historical Medications * This list may reflect changes made after this encounter. golimumab (SIMPONI) 100 mg/mL pen injector 1 mL (100 mg total) every 8 (eight) weeks ondansetron (ZOFRAN) 4 mg tablet TAKE 2 TABLETS (8 MG) BY ORAL ROUTE EVERY 12 HOURS 2 12/09/2018 12/30/2018 rOPINIRole (REQUIP) 1 mg tablet TAKE 1 TABLET (1 MG) BY ORAL ROUTE 1-3 HOURS BEFORE BEDTIME 2 12/09/2018 12/30/2018 added in this encounter Care Teams Clinical Reviewer Relationship Specialty Start Date End Date Tim Altman MD [address] [place] [address] PCP - General 04/03/11 documented as of this encounter
--- OUTSIDE RECORDS SUMMARY | 2024-06-17 14:54 | XMS_ITS | Encounter Summary ---
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 Order entered in [employer] [employer] and faxed. Pt has upcoming appt. documented in this encounter Plan of Treatment Not on file documented as of this encounter Visit Diagnoses Diagnosis Screening for osteoporosis- Primary Special screening for osteoporosis Asymptomatic menopausal state documented in this encounter Care Teams Director Of Software Engineering Relationship Specialty Start Date End Date Tim Altman MD [address] [place] [address] PCP - General 04/03/11 documented as of this encounter
--- OUTSIDE RECORDS SUMMARY | 2024-06-17 14:54 | XMS_ITS | Encounter Summary ---
Author Organization [facility] Address [address] [place] [address] Care Team Providers Care Condominium Manager Name Role Phone Tim Altman MD Primary Care Provider [phone]- [phone] Reason for Visit * Reason Onset Date Comments Test Results 01/13/2018 Encounter Details Date Type Department Care Team (Late st Contact Info) Description 01/13/2018 Telephone [facility] [address] [place] [address] Karol Weber LPN Test Results Social History Tobacco Use Types Packs/Day Years Used Date Smoking Tobacco: Never Smokeless Tobacco: Never Alcohol Use Standard Drinks/Week Comments No 0 (1 standard drink = 0.6 oz pur e alcohol) Comments No Sex and Gender Information Value Date Recorded Sex Assigned at Not on file 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
--- OUTSIDE RECORDS SUMMARY | 2024-06-17 14:54 | XMS_ITS | Encounter Summary ---
Author Organization [facility] Healthcare Address [address] [place] [address] Care Team Providers Care Chemical Weigher Name Role Phone Tim Altman MD Primary Care Provider [phone]- [phone] Reason for Referral * Diagnostic Imaging (Routine) - Closed Specialty Diagnoses / Procedures Referred By Contac t Referred To Contact Diagnoses Lumbar radiculopathy Procedures Imaging Lumbar/Sacral Selective Nerve Root INJ (TFE) Left (08044) Gregory Roman MD [address] [place] [address] DR M[place] [address] [place] [address] Phone: tel: fax: [address] [address] Referral ID Status Reason Start Date Expiration Date Visits Re quested Visits Authorized [id number] Closed 05/06/2024 06/05/2025 1 1 IO OPERATIONS ENGINEER IN CHARGE Reason for Visit * Diagnostic Imaging (Routine) - Closed Specialty Diagnoses / Procedures Referred By Contac t Referred To Contact Diagnoses Lumbar radiculopathy Procedures Imaging Lumbar/Sacral Selective Nerve Root INJ (TFE) Left (46106) Gregory Roman MD [address] [place] [address] DR MCCAIN [address] [place] [address] Phone: tel: fax: [address] [address] Referral ID Status Reason Start Date Expiration Date Visits Re quested Visits Authorized [id number] Closed 05/06/2024 06/05/2025 1 1 Encounter Details Date Type Department Care Team (Latest Contact Info) Description 05/25/2024 12:58 PM STUDIO OPERATIONS ENGINEER IN CHARGE - 05/25/2024 11:59 PM STUDIO OPERATIONS ENGINEER IN CHARGE Hospital Encounter [facility] [address] [facility] [address] [place] [address] Gregory Roman MD 2 [facility] [address] [place] [address] Lumbar radiculopathy Discharge Disposition: Discharge to home or self care Social History Tobacco Use Types Packs/Day Years [...] on file Legal Sex Female 6:27 PM STUDIO OPERATIONS ENGINEER IN CHARGE Gender Identity Not on file Sexual Orientation Not on file documented as of this encounter Last Filed Vital Signs Vital Sign Reading Time Taken Comments Blood Pressure 128/74 05/25/2024 1:56 PM STUDIO OPERATIONS ENGINEER IN CHARGE Pulse 101 05/25/2024 1:56 PM STUDIO OPERATIONS ENGINEER IN CHARGE Temperature 36.4 ??C (97.5 ??F) 05/25/2024 1:06 PM CS T Respiratory Rate 18 05/25/2024 1:56 PM STUDIO OPERATIONS ENGINEER IN CHARGE Oxygen Saturation 96% 05/25/2024 1:56 PM STUDIO OPERATIONS ENGINEER IN CHARGE Inhaled Oxygen Concentration - - Weight - - Height - - Body Mass Index - - documented in this encounter Discharge Instructions * Discharge Instructions* Naomi Baker RN - 05/25/2024 1:59 PM STUDIO OPERATIONS ENGINEER IN CHARGE Discharge instructions reviewed. Signed copy given to patient. Patient verbalized understanding. Patient to return as instructed. IO OPERATIONS ENGINEER IN CHARGE documented in this encounter Medications at Time of Discharge acetaminophen (TYLENOL) 325 mg tablet take 1 tablet by oral route every 4 hours as needed 0 11/19/2010 aspirin 81 mg enteric coated tablet Take 1 tablet (81 mg total) by mouth daily B.breve-L.acid-L. rham-S.thermo 3 billion cell tablet,chewable Take by mouth. Brand Monica carbidopa-levodop a CR (SINEMET CR) 50-200 mg per CR tablet take 1 tablet by oral route 2 times every day 0 0 10/30/2014 celecoxib (CeleBREX) 200 mg capsule Take 1 capsule (200 mg total) by mouth 2 (two) times a day CYANOCOBALAMIN, VITAMIN B-12, ORALIndications:P revention of Vitamin B12 Deficiency Take 100 mcg by mouth daily. folic acid (FOLVITE) 1 mg tablet take 1 tablet by oral route every day 0 0 10/19/2013 gabapentin (NEURONTIN) 600 mg tablet take 1 tablet by oral route 3 times every day 0 0 10/19/2013 golimumab (SIMPONI) 100 mg/mL pen injector 1 mL (100 mg total) every 8 (eight) weeks methotrexate 2.5 mg tablet take 1 tablet by oral route every 12 hours for 3 doses given as a course once weekly 0 0 10/19/2013 metoprolol (LOPRESSOR) 25 mg tablet take 1 tablet (25MG) by oral route 2 times every day 0 09/24/2010 omeprazole (PriLOSEC) 40 mg capsule take 1 capsule by oral route every day before a meal 0 0 10/19/2013 ondansetron (ZOFRAN) 4 mg tablet Take 1 tablet (4 mg total) by mouth every 8 (eight) hours as needed for nausea or vomiting predniSONE (DELTASONE) 5 mg tablet take (0.5MG/KG) by oral route every day 0 0 10/19/2013 documented as of this encounter Discharge Disposition Disposition Code Departure Means Destination Discharge to home or self care documented in this encounter H&P Notes * Gregory Roman MD - 05/25/2024 1:30 PM CST Patient Name: Lexi Mcneil : 1955 Today's Date: 05/25/2024 PCP: Tim Altman MD Diagnosis: Encounter Diagnosis Name Primary? Lumbar radiculopathy Procedure: lumbar TFESI Vitals BP 132/76 Pulse 84 Temp 97.5 ??F (36.4 ??C) (Temporal) Resp 18 SpO2 98% Allergies Allergen Reactions Adhesive Tape-Silicones Rash Amitriptyline Rash Codeine Chest tightness Crestor [Rosuvastatin] Muscle pain Hydrocodone Chest tightness Penicillins Rash Surgilube [Surgical Lubricant Jelly] Rash Patient call in after exam and states this made her vagina irritated Keftab [Cephalexin Hcl] Unknown Provera Cp Unknown Sulfa (Sulfonamide Antibiotics) Unknown Vicodin [Hydrocodone-Acetaminophen] Unknown Vytorin 10-10 [Ezetimibe-Simvastatin] Unknown Zinc Citrate-Phytase Unknown Fluorescein-Proparacaine Unknown Past Medical History: Diagnosis Date HX OTHER MEDICAL polymyalgia Rheumatica HX OTHER MEDICAL RSD HX OTHER MEDICAL duecticatosis HX OTHER MEDICAL gca HX OTHER MEDICAL Headache, migraine HX OTHER MEDICAL 1976 ; Outcome: 9 lb(s) 11 oz Female HX OTHER MEDICAL 1980 ; Outcome: 10 lb(s) 2 oz Male Hypertension Hypertension Irritable bowel syndrome Irritable bowel disease Primary fibromyalgia syndrome Fibromyalgia Tension headache Headache, tension Past Surgical History: Procedure Laterality Date ABLATION 2004 Ablation CARPAL TUNNEL RELEASE Right carpal tunnel release ELBOW SURGERY 2010 elbow surgery ELBOW SURGERY Right elbow surgery FOOT SURGERY Left foot surgery HAND SURGERY 2010 hand surgery OTHER SURGICAL HISTORY 2007 d&c and hysteroscopy OTHER SURGICAL HISTORY 2006 catherization OTHER SURGICAL HISTORY 2006 endoscopie OTHER SURGICAL HISTORY 2001 dianelys surgery OTHER SURGICAL HISTORY 2010 biopsy of temoral artery TUBAL LIGATION BTL Social History Tobacco Use Smoking status: Never Smokeless tobacco: Never Substance and Sexual Activity Drug use: No Sexual activity: None Alcohol Use: Not At Risk (09/03/2023) Received [facility] AUDIT-C Frequency of Alcohol Consumption: Never Average Number of Drinks: Patient does not drink Frequency of Binge Drinking: Never Family History Problem Relation Age of Onset Hypertension Mother Hypertension; Heart disease Mother Heart disease; Thyroid disease Mother Thyroid disease; Cancer Mother cancer; Osteoporosis Mother Osteoporosis; Breast cancer Mother's Sister Cancer, breast; Ovarian cancer Mother's Sister Cancer, ovarian; Heart disease Father Heart disease; Heart disease Other Heart disease; HOME MEDICATIONS : acetaminophen (TYLENOL) 325 mg tablet aspirin 81 mg enteric coated tablet B.breve-L.acid-L.rham-S.thermo 3 billion cell tablet,chewable carbidopa-levodopa CR (SINEMET CR) 50-200 mg per CR tablet celecoxib (CeleBREX) 200 mg capsule CYANOCOBALAMIN, VITAMIN B-12, ORAL folic acid (FOLVITE) 1 mg tablet gabapentin (NEURONTIN) 600 mg tablet golimumab (SIMPONI) 100 mg/mL pen injector methotrexate 2.5 mg tablet metoprolol (LOPRESSOR) 25 mg tablet omeprazole (PriLOSEC) 40 mg capsule ondansetron (ZOFRAN) 4 mg tablet predniSONE (DELTASONE) 5 mg tablet ROS: WNL for patient. PE: Alert and oriented. Normal pupils. Normal respiratory effort. Abdomen not distended. CN 2-12 grossly intact. Assessment and Plan: Most recent H&P reviewed, patient has been re-examined, and no changes have occurred. Informed Consent: Risks, benefits, complications, and alternatives to proceeding with the procedurewere discussed in detail with the patient. The patient was informed about risks including (but not limited to): infection, bleeding/bruising, allergic reaction, nerve or organ injury, increased pain or lack of pain relief, stroke, and . Questions were solicited and answered, and the patient endorsed explicit understanding and consented to proceed. Plan: Proceed with intervention as previously ordered. Gregory Roman MD [facility] Interventional Pain Medicine IO OPERATIONS ENGINEER IN CHARGE documented in this encounter Miscellaneous Notes * Op Note - Gregory Roman MD - 05/25/2024 1:30 PM CST Procedure performed: Transforaminal epidural steroid injection with fluoroscopic guidance Level: L4-5 Laterality: left Of note, initially booked as left L5-S1. Significant hypertrophy of L5-S1 facet joint, upon obliqueangulation there was no reasonable space to access the left L5 foramen. Decision ultimately made toforego L5-S1 for left L4-5 approach with success. Indication for procedure: ICD-10-CM 1. Lumbar radiculopathy M54.16 Imaging Lumbar/Sacral Selective Nerve Root INJ (TFE) Left (90603) Imaging Lumbar/Sacral Selective Nerve Root INJ (TFE) Left (05740) Estimated Blood Loss: 0 Procedure Description: Informed Consent: Risks were identified and discussed as documented in pre- procedure H&P. In addition, we specifically discussed the risk of intravascular injection, unintentional discogram, and transient paresthesias. The patient expressed understanding and is willing to proceed. Procedure Description: The patient was then positioned prone on the fluoroscopic table. The injection site was prepped with antiseptic solution and draped in the usual sterile fashion. Fluoroscopy was utilized to identify and number the lumbar vertebrae. The left L4-5 foramina was optimized in an ipsilateral oblique view, and the overlying skin and subcutaneous tissue was anesthetized with 1% lidocaine. A 5 inch 22 gauge spinal needle was then advanced in coaxial fashion until the needle tip lie within the target foramina, approximating the midpedicular line (ie 6 o-clock position of the pedicle). Needle tip position was confirmed in multiple views. After negative aspiration, 0.5 ml of Omnipaque contrast was injected with contrast outlining the spinal nerve root and flowing into the epidural space. Next, 1 mL of 2% lidocaine was injected as a test dose. After 60 seconds, strength and sensation was verified in BL lower extremities to confirm lack of intrathecal and intravascular spread. Finally, a solution containing non- particulate steroid and preservative free normal saline was injected and the needle withdrawn. Aseptic technique was utilized throughout. The patient tolerated the procedure well, and there wereno apparent complications. The patient was brought to the recovery area and monitored for a period until appropriate for discharge. The patient was instructed to call in the event of severe pain, bleeding, neurological deficit, fever, or other significant concerns, and to call 911 if there is any concern for any emergency. Medications used: New Medications Ordered This Visit iohexoL (OMNIPAQUE) 240 mg iodine/mL injection solution dexAMETHasone (DECADRON) injection solution lidocaine (PF) (XYLOCAINE) 20 mg/mL (2 %) preservative free injection 10 mg steroid 1 mL local anesthetic 1 mL preservative-free normal saline Pre-procedure pain score: 9 Post-procedure pain score: Pain Score: 7 Gregory Roman MD [facility] Interventional Pain Medicine IO OPERATIONS ENGINEER IN CHARGE documented in this encounter Plan of Treatment Not on file documented as of this encounter Goals Goal Patient Goal Type Associated Problems Recent Progress Patient-Stated? Author -[facility] Janice Newman RN Note: Patient will establish a comfort-function goal and identify the pain level that will allow the patient to perform desired activities and achieve an acceptable quality of life. documented as of this encounter Procedures Procedure Name Priority Date/Time Associated Diagnosis Comments PAIN MGMT IMAGING LUMBAR/SACRAL SELECTIVE NERVE ROOT INJ (TFE) LEFT Schedule Routine, Read Routine (OP Routine) 05/25/2024 1:54 PM STUDIO OPERATIONS ENGINEER IN CHARGE Lumbar radiculopathy documented in this encounter Results * Imaging Lumbar/Sacral Selective Nerve Root INJ (TFE) Left (39833) (05/25/2024 1:54 PM STUDIO OPERATIONS ENGINEER IN CHARGE) Narrative [facility] - 05/25/2024 1:55 PM STUDIO OPERATIONS ENGINEER IN CHARGE The images from this study are not interpreted by Radiology. ??Please refer to the physician's procedure / OR operative note. us Gregory Roman MD IMG PAIN MGMT PROCEDURE S Final Result [facility] documented in this encounter Visit Diagnoses Diagnosis Lumbar radiculopathy Thoracic or lumbosacral neuritis or radiculitis, unspecified documented in this encounter Administered Medications Inactive Administered Medications - up to 3 most recent administrations Medication Order MAR Action Action Date Dose Rate Site dexAMETHasone (DECADRON) injection solution Administer over 2 Minutes, As needed, Starting on Thu05/25/24 at 1335, Intra-Op Given 05/25/2024 1:53 PM STUDIO OPERATIONS ENGINEER IN CHARGE 10 mg Simone k iohexoL (OMNIPAQUE) 240 mg iodine/mL injection solution As needed, Starting on Thu05/25/24 at 1335, Intra-Op Given 05/25/2024 1:51 PM STUDIO OPERATIONS ENGINEER IN CHARGE 1 mL Back lidocaine (PF) (XYLOCAINE) 20 mg/mL (2 %) preservative free injection As needed, Starting on Thu05/25/24 at 1335, Intra-Op Given 05/25/2024 1:51 PM STUDIO OPERATIONS ENGINEER IN CHARGE 1 mL Back documented in this encounter Care Teams Chemical Weigher Relationship Specialty Start Date End Date Tmi Altman MD [address] [place] [address] PCP - General 04/03/11 documented as of this encounter
--- OUTSIDE RECORDS SUMMARY | 2024-06-17 14:54 | XMS_ITS | Referral Summary ---
Author Organization [facility] Address [address] [place] [address] Care Team Providers Care Manager Civil Name Role Phone Tim Altman MD Primary Care Provider [phone]- [phone] Encounters Date Type Department Care Team Description 05/25/2024 12:58 PM ENTOMOLOGY PROFESSOR - 05/25/2024 11:59 PM ENTOMOLOGY PROFESSOR Hospital Encounter [facility] 2 [facility] [address], [place] [address] Gregory Roman MD Lumbar radiculopathy Discharge Disposition: Discharge to home or self care 05/06/2024 3:04 PM ENTOMOLOGY PROFESSOR - 05/06/2024 11:59 PM ENTOMOLOGY PROFESSOR Hospital Encounter [facility] 2 [facility], [place] [address] Gregory Roman MD Lumbar radiculopathy (Primary Dx); Closed fracture of left tibial plateau Discharge Disposition: Discharge to home or self care from Last 3 Months Allergies Active Allergy Reactions Criticality Noted Date [...] (09/19/2016): Osteoarthritis Osteoporosis 04/07/2012 Overview (09/19/2016): Osteoporosis Social History Tobacco Use Types Packs/Day Years [...] on file Legal Sex Female 6:27 PM ENTOMOLOGY PROFESSOR Gender Identity Not on file Sexual Orientation Not on file Last Filed Vital Signs Vital Sign Reading Time Taken Comments Blood Pressure 128/74 05/25/2024 1:56 PM ENTOMOLOGY PROFESSOR Pulse 101 05/25/2024 1:56 PM ENTOMOLOGY PROFESSOR Temperature 36.4 ??C (97.5 ??F) 05/25/2024 1:06 PM CS T Respiratory Rate 18 05/25/2024 1:56 PM ENTOMOLOGY PROFESSOR Oxygen Saturation 96% 05/25/2024 1:56 PM ENTOMOLOGY PROFESSOR Inhaled Oxygen Concentration - - Weight 92.2 kg (203 lb 3.2 oz) 04/15/2021 9:07 A M CDT Height 162.6 cm (5' 4 ) 04/15/2021 9:07 AM CDT Body Mass Index 34.88 04/15/2021 9:07 AM CDT Plan of Treatment Not on file Goals Goal Patient Goal Type Associated Problems Recent Progress Patient-Stated? Author [facility] Janice Newman, GINNY Note: Patient will establish a comfort-function goal and identify the pain level that will allow the patient to perform desired activities and achieve an acceptable quality of life. Procedures Procedure Name Priority Date/Time Associated Diagnosis Comments PAIN MGMT IMAGING LUMBAR/SACRAL SELECTIVE NERVE ROOT INJ (TFE) LEFT Schedule Routine, Read Routine (OP Routine) 05/25/2024 1:54 PM ENTOMOLOGY PROFESSOR Lumbar radiculopathy STOOL DNA ? COLOGUARD Routine 05/20/2021 6:25 AM ENTOMOLOGY PROFESSOR Screening for colon cancer DEXA AXIAL SKELETON BONE DENSITY 1 OR MORE SITES Schedule Routine, Read Routine (OP Routine) 12/18/2020 MAMMOGRAPHY Schedule Routine, Read Routine (OP Routine) 07/17/2020 from Last 3 Months or Most Recently Relevant to Health Maintenance Results * Imaging Lumbar/Sacral Selective Nerve Root INJ (TFE) Left (75974) (05/25/2024 1:54 PM ENTOMOLOGY PROFESSOR) Narrative [facility] - 05/25/2024 1:55 PM ENTOMOLOGY PROFESSOR The images from this study are not interpreted by Radiology. ??Please refer to the physician's procedure / OR operative note. us Gregory Roman MD IMG PAIN MGMT PROCEDURE S Final Result [facility] * Stool DNA - Cologuard (05/20/2021 6:25 AM ENTOMOLOGY PROFESSOR) Stool DNA - Cologuard Negative Negative Kopi (CLIA #:[id number]) Comment: NEGATIVE TEST RESULT. A negative Cologuard [...] cancer. ??Following a negative Cologuard result, the [place] [employer] and U.S. Multi-Society Task Force screening guidelines recommend a Cologuard re-screening interval of 3 years. References: [place] [employer] Guideline for Colorectal Cancer Screening: https://www.cancer.org/cancer/nfunf-izhram-ytzdib/xryyelkuo-ezlhxmvnf-jeumjyi/ac s-rec ommendations.html.; Uriah DK, Karina CR, Kamlesh VillalpandoK, Colorectal Cancer Screening: Recommendations for Physicians and Patients from the U.S. Multi-Society Task Force on Colorectal Cancer Screening , Am J Gastroenterology 2017; 112:3781-0065. TEST DESCRIPTION: Composite algorithmic analysis of stool [...] Box et al, N Engl J Med 2014;370(14):4213-8621.) Cologuard may produce a false negative or false positive result (no colorectal cancer or precancerous polyp present at colonoscopy follow up). A negative Cologuard test result does not guarantee the absence of CRC or advanced adenoma (pre-cancer). The current Cologuard screening interval is every 3 years. ([place] [employer] Society and U.S. Multi-Society Task Force). Cologuard performance data in a 10,000 patient pivotal study using colonoscopy as the reference method can be accessed at the following location: www.[employer]Mommy Nearest/results. Additional description of the Cologuard test process, warnings and precautions can be found at www.cologuard.com. Stool 05/20/2021 6:25 AM ENTOMOLOGY PROFESSOR 05/21/2021 12:01 PM ENTOMOLOGY PROFESSOR us Marilyn Campos PHOTONICS ENGINEERING TECHNOLOGIST LAB BODY FLUIDS AND STOOL S ORDERABLES Final Result Hers (CLIA #:[id number]) [place] [address] * Dexa Axial Skeleton Bone Density 1 or 2 Site (12/18/2020) Anatomical Region Laterality Modality Body N/A Radiographic Irma ging Marilyn Campos PHOTONICS ENGINEERING TECHNOLOGIST IMG DXA PROCEDURES Final Result * MAMMOGRAPHY (07/17/2020) Anatomical Region Laterality Modality Breast Mammography Marilyn Campos PHOTONICS ENGINEERING TECHNOLOGIST IMG MAMMO PROCEDURES Bety l Result from Last 3 Months or Most Recently Relevant to Health Maintenance Insurance [facility] [place] MEDICARE [facility] Member Subscriber Plan / Payer (Ef fective 2020-) Name:Lexi Mcniel Relation to Subscriber:Self Name:Lexi Mcneil Payer ID:[id number] Group ID:Not on file Type:ACSIAN Address: [facility] [id number] [place] [id number] MEDICARE [facility] Member Subscriber Plan / Payer (Ef fective 2023-) Name:Lexi Mcneil Jose Ramon Relation to Subscriber:Self Name:Lexi Mcneil Jose Ramon Payer ID:[id number] Group ID:Not on file Type:COMMERCIAL Address: [facility] [id number] [place] [id number] Care Teams Manager Civil Relationship Specialty Start Date End Date Tim Altman MD [address] [place] [address] [facility] - General 04/03/11
--- OUTSIDE RECORDS SUMMARY | 2024-06-17 14:54 | XMS_ITS | Encounter Summary ---
Author Organization [facility] Address [address] [place] [address] Care Team Providers Care City Director Name Role Phone Tim Altman MD Primary Care Provider [phone]- [phone] Reason for Visit * Reason Onset Date Comments Test Results 01/18/2018 Encounter Details Date Type Department Care Team (Late st Contact Info) Description 01/18/2018 Telephone [facility] [address] [facility] [address] [place] [address] Mavis Alvarado MA Test Results Social History Tobacco Use Types Packs/Day Years Used Date Smoking Tobacco: Never Smokeless Tobacco: Never Alcohol Use Standard Drinks/Week Comments No 0 (1 standard drink = 0.6 oz pur e alcohol) Comments No Sex and Gender Information Value Date Recorded Sex Assigned at Not on file Legal Sex Female 6:27 PM SHAFT MECHANIC Gender Identity Not on file Sexual Orientation Not on file documented as of this encounter Miscellaneous Notes * Telephone Encounter - Mavis Alvarado MA - 01/18/2018 4:05 PM CDT Pt made aware. Mailed copy of dexa to pt per her request. * Telephone Encounter - Mavis Alvarado MA - 01/18/2018 2:23 PM CDT Lm for pt to call office regarding. Normal DX mamm and breast US. Dexa osteopenia hip. Per [facility] havept take Vitamin D 2,000 ius daily and calcium 600 mg BID. Low bearing weight exercise. documented in this encounter Plan of Treatment Not on file documented as of this encounter Visit Diagnoses Not on filedocumented in this encounter Care Teams City Director Relationship Specialty Start Date End Date Tim Altman MD [address] [place] [address] PCP - General 04/03/11 documented as of this encounter
--- OUTSIDE RECORDS SUMMARY | 2024-06-17 14:54 | XMS_ITS | Encounter Summary ---
Author Organization [facility] Healthcare Address [address] [place] [address] Care Team Providers Care Butt Welder Name Role Phone Tim Altman MD Primary Care Provider +1- [phone] Reason for Referral * Diagnostic Imaging (Routine) - Closed Specialty Diagnoses / Procedures Referred By Contac t Referred To Contact Diagnoses Lumbar radiculopathy Procedures Imaging Lumbar/Sacral Selective Nerve Root INJ (TFE) Left (34846) Kindra Cardoza MD [address] [place] [address] [place] [address] Phone: tel: fax: [address] [phone] Referral ID Status Reason Start Date Expiration Date Visits Re quested Visits Authorized [id number] Closed 05/06/2024 06/05/2025 1 1 UCTION QUALITY MANAGER * Consultation (Routine) - Closed Specialty Diagnoses / Procedures Referred By Contac t Referred To Contact Pain Management Diagnoses Lumbar radiculopathy Tim Altman MD [facility] [place] [place] [address] Phone: tel: fax: Kindra Cardoza MD [address] [place] [address] [address] Phone: tel: fax: Referral ID Status Reason Start Date Expiration Date V isits Requested Visits Authorized [id number] Closed Specialty Services Required 03/18/2024 04/17/2025 1 1 Question Answer Please select the performing region: [facility] [[id number]] To provider: KINDRA CARDOZA [[id number]] # of visits: 1 UCTION QUALITY MANAGER Reason for Visit * Reason Comments Initial Consult Pain * Consultation (Routine) - Closed Specialty Diagnoses / Procedures Referred By Contac t Referred To Contact Pain Management Diagnoses Lumbar radiculopathy Tim Altman MD [address] [place] [address] Phone: tel: fax: Kindra Cardoza MD [address] [place] [address] [address] [place], [place] [address], [place] [address] Phone: tel: fax: Referral ID Status Reason Start Date Expiration Date V isits Requested Visits Authorized [id number] Closed Specialty Services Required 03/18/2024 04/17/2025 1 1 Encounter Details Date Type Department Care Team (Latest Contact Info) Description 05/06/2024 3:04 PM PRODUCTION QUALITY MANAGER - 05/06/2024 11:59 PM PRODUCTION QUALITY MANAGER Hospital Encounter [facility] [address] [place] [address] Kindra Cardoza MD [address] [place] [address] [address] [place] [place] [id number] Lumbar radiculopathy (Primary Dx); Closed fracture of [...] on file Legal Sex Female 6:27 PM PRODUCTION QUALITY MANAGER Gender Identity Not on file Sexual Orientation Not on file documented as of this encounter Last Filed Vital Signs Vital Sign Reading Time Taken Comments Blood Pressure 120/72 05/06/2024 3:53 PM PRODUCTION QUALITY MANAGER Pulse 69 05/06/2024 3:53 PM PRODUCTION QUALITY MANAGER Temperature - - Respiratory Rate 16 05/06/2024 3:53 PM PRODUCTION QUALITY MANAGER Oxygen Saturation 98% 05/06/2024 3:53 PM PRODUCTION QUALITY MANAGER Inhaled Oxygen Concentration - - Weight - - Height - - Body Mass Index - - documented in this encounter Discharge Instructions * Attachments The following attachments cannot be sent through Care Everywhere. * Epidural Steroid Injection (General Information) (Austrian) documented in this encounter Medications at Time [...] or self care documented in this encounter Progress Notes * Kindra Cardoza MD - 05/06/2024 3:30 PM CST Treatment Summary Impression: Query lumbar radiculopathy versus common peroneal nerve injury in the setting of lateral tibial plateau fracture; trial lumbar TFESI at L5-S1 for the L5 nerve root The following imaging/procedural orders were placed during this visit: Orders Placed This Encounter Procedures Imaging Lumbar/Sacral Selective Nerve Root INJ (TFE) Left (40918) Ambulatory referral to Pain Management Medications: None Follow up: For procedure Patient Name: Lexi Mcneil Age: 68 y.o. [facility] New Patient Visit Subjective Lexi Mcneil presents today at the recommendation of Dr. Barajas for initial evaluation regarding her history of radicular low back pain. PMH is notable for Rheumatoid Arthritis. Current pain is/was chronic in onset, inciting etiology: Fall in December Pain Score: 7 Pain Descriptors: Numbness, Sharp Pain Location: Back (Lumbar) Aggravating Factors: Walking Alleviating factors: rest, activity modification, and laying down Pain Radiating Towards: left hip pain, left knee pain (fx), left lateral thigh numbness, left hallman numbness into top of left foot, left leg weakness Admittedly interview was somewhat difficult as answers were tangential at times. In summary, patient had left hip surgery in June and completed physical therapy but still had episodes where left hip ???did not want to work?? with occasional give-way weakness and falls. In December she had 1 of these episodes, tried to step up onto a sidewalk but fell and hit her left knee. Persistent left knee pain and also what sounds like neuropathic pain starting from her knee to the front of her hallman into the top of her foot. Initially she was told that she did not have an injury. Eventually after severalprovider visits and repeat imaging she was diagnosed with a left knee fracture (lateral tibial plateau per care everywhere) and is pending left knee surgery in June. Throughout this process she was also referred by her orthopedic surgeon to Dr. Barajas, see media tab scan dated 03/18/24 for details. In summary, axial low back and leg pain down the lateral aspect of her left lower extremity that wraps around the knee to the top of the foot. Chronic left footdrop after a fall over 20 years ago with an AFO brace. It sounds like this pain was present prior to hip surgery in June, somewhat worse afterwards and so MRI and neurosurgical consultation was obtainedto rule out spine contribution. What was difficult for me to tease out was whether left lower extremity symptoms (particularly below the knee) were present prior to fall. Today the majority of her symptoms appeared to be below the knee in a common peroneal distribution and I was unable to elicit whether these symptoms have been chronically present or only since the fall. Currently managing with Tylenol, gabapentin, tramadol, and occasional morphine. She obtained morphine and tramadol from previous prescriptions. No history of back injections. Physical therapy for axial low back pain a year ago. THERAPIES TO DATE INTERVENTIONS: RELEVANT SURGERIES: L KAROLYN Current medications: [x] Tylenol [x] Gabapentin [] Nortriptyline [x] Tramadol [] Oxycontin [] Flexeril [] Lidocaine patch [] -Triptans [] Aspirin [] Lyrica [] Amitriptyline [] Tylenol 3 [] MSContin [] Tizanidine [] OTC topicals [] Propranolol [] Aleve [] Cymbalta [] Topiramate [] Codeine [] Dilaudid [] Baclofen [] Capsaicin [] Botox [] Ibuprofen [] Valproate [] Oxycodone [] Methadone [] Soma [] Fioricet [] Meloxicam [] Carbamazepine [] [place] [] Fentanyl [] Metaxalone [] Diclofenac [] Naltrexone [] Percocet [] Buprenorphine [] Methocarbamol [x] Celebrex [x] Morphine [] Nucynta [] Soma Other: Methotrexate CONSERVATIVE MEASURES [x] Physical Therapy [] Chiropractor [] Home Exercise [] Yoga/stretching [] TENS Unit [x] OTC medications (see above) [] Heat/ice [] Other ( ) Pt has tried the conservative measures indicated above for at least 3 month(s) with inadequate relief. Lexi Mcneil's history was reviewed and updated as appropriate including past medical history, past surgical history, social history, family history, allergies, and home medication list. A review of systems was completed, reviewed, and scanned into the chart. INDIRA, PEG Scale, and Current Opioid Misuse Measure (COMM) reviewed during this encounter. Modified Oswestry Low Back Pain Score: 24 Objective Vitals: 05/06/24 1553 BP: 120/72 BP Location: Right arm Patient Position: Sitting Pulse: 69 Resp: 16 SpO2: 98% PHYSICAL EXAM General: Pleasant, no acute distress, normal appearance, grooming and nutrition Skin: No rashes or lesions on exposed skin Heart/Lungs: non labored breathing Neuro/MSK: No gross deformities on inspection Gait: ambulates with assist device and antalgic favoring the L Heel-toe walking: deferred Range of motion: reproduction of axial pain with bilateral facet loading Sensation: grossly intact to light touch throughout BL lower extremities Action Grade Right Left Hip flexion (L2) 5 5 Knee extension (L3) 5 4 Ankle dorsiflexion (L4) 5 * Big toe extension (L5) 5 5 Ankle plantar flexion (S1) 5 * Knee flexion (S2) 5 5 Reflex Grade Right Left Patellar normal (2+) deferred Achilles normal (2+) absent/unable to obtain Upper motor neuron testing: Babinski: negative bilaterally Clonus: negative bilaterally DIAGNOSTICS I have reviewed all relevant imaging studies and explained pertinent findings to the patient. 2023: MRI lumbar spine without contrast (read via Care everywhere, no images available) 20?? levoscoliosis of the thoracolumbar spine. 3 mm retrolisthesis L2 on L3 and L3 on L4, 3 mm anterolisthesis L4 on L5 Severely decreased disc height from L1-2 through L3-4 Severe bilateral facet joint arthritis throughout the lumbar spine Severe left lateral recess stenosis at L3-4 Severe central canal stenosis at L4-5 Multilevel foraminal stenosis, moderate at worst Assessment/Plan Query common peroneal neuropathy in the setting of lateral tibial plateau fracture Thoracolumbar scoliosis with severe lumbar facet arthropathy Degenerative lumbar spinal stenosis, worst at L4-5 Multilevel foraminal stenosis It was a pleasure to meet Lexi today in clinic. I question whether current symptomatology in her left lower extremity is stemming from known lateral tibial plateau fracture versus chronic degenerative changes in her lumbar spine. Based on Dr. Barajas' note from late February, the patient endorsed symptomatology that was much more consistent with a radiculopathy in an L4, L5 root distribution. Today, however, the majority of her leg symptoms were below the knee and into the top of the foot in a peroneal nerve distribution. Nothing in the thigh. This would make sense with a peroneal nerve injury in the setting of lateral tibial plateau fracture. She certainly has a lot of reason to have axial low back pain in the setting of scoliosis with severe multilevel facet arthropathy as well. Nevertheless, I think it is reasonable to trial a lumbar TFESI on the left. Given severe stenosis at L4-5, we will target L5 nerve root at L5-S1. My intention is that this will be as diagnostic as possibly therapeutic. If no relief in the setting of good epidural steroid spread, would consider an EMG for formal diagnosis of peroneal neuropathy. We will also try and obtain MRI disc. See below for justification, follow up for procedure. Kindra Cardoza MD Interventional Pain Management [facility] PLAN JUSTIFICATION History and physical exam consistent with radicular low back pain, likely 2/2 multifactorial degenerative changes. This is consistent with findings on imaging which demonstrate a component of stenosis/nerve root compression. Pain has been present for at least 4 weeks and the patient has failed to respond (or has been unable to tolerate) conservative measures during that timeframe (see Subjective for specific measures). Additionally, this pain is greatly affecting the patient's quality of life and ability to perform ADL's. INDIRA - Modified Oswestry Low Back Pain Score: 24/50 VAS - Pain Score: 7/10 Patient limitations - limited ability to perform ADLs, pain having a significant life impact For these reasons, I think it's reasonable to try a(n) transforaminal epidural steroid injection totry and obtain relief. Specific location - L5-S1 We discussed the nature of the procedure including risks and benefits. We also discussed reasonableexpectations for pain relief (ie may not get 100% relief and results will likely be temporary). Rather, the goal is to use this intervention to help maximize activity/rehabilitation/therapy for more lasting results.The patient expressed understanding and is willing to proceed. [facility] Best Practice documentation Blood pressure in clinic today was BP: 120/72. This classifies as a normal BP reading (SBP<120 and DBP<80). No follow up required. Patient is not a tobacco user. PATIENT EDUCATION Learning needs assessment was performed and no barriers identified. Explained diagnosis and treatment plan. Patient expressed understanding and was able to teach back. I personally spent a total of 20 minutes of hef-vmsj-lu-face time performing a review of the recordand/or discussion with the patient/caregiver as described above. Total time spent with patient 30 minutes, total time in counseling 20 minutes. MATH COACH: Recreation Establishment Manager completed with Fluency Direct, dictation proofread to best of my ability. UCTION QUALITY MANAGER documented in this encounter Nursing Notes * Janice Pace RN - 05/06/2024 3:30 PM CST Level 2 Escorted patient to exam room. Obtained vital signs. Reviewed patient's allergies and current medications. Obtained and verified patient's simple medical/surgical history. Confirmed the reason for visit with the patient. Obtained the following screening assessments: [x] Modified Oswestry Low Back Pain Questionnaire [] [facility] Intake Questionnaire [] [facility] Follow up Questionnaire [] Fall Risk Assessment (Lor Babin Steadi) [x] Depression/Anxiety Assessment (GAD7, PHQ-9, [place] Suicide, [place] Depression) [] Disability Scale [] CAGE [x] SOAPP-R/COMM Additional tasks included: [] Random medication adherence check (pill verification by two nurses) [] Work/school note written [] Pended CT/MRI/MRA order [] Pain assessment for multiple sites [x] PEG, new pt paperwork Vital Signs Pulse: 69 Resp: 16 BP: 120/72 BP Location: Right arm Patient Position: Sitting SpO2: 98 % Post-visit transport confirmed with the patient. Total time spent for patient care, education, and care coordination was approximately 11-20 minutes. UCTION QUALITY MANAGER documented in this encounter Miscellaneous Notes * Addendum Note - Janice Pace RN - 05/06/2024 3:30 PM CSTEncounter addended by: aJnice Pace RN on: 05/10/2024 5:45 PM Actions taken: Level of Service modified, Charge Capture section accepted UCTION QUALITY MANAGER documented in this encounter Plan of Treatment Scheduled Referrals Name Type Priority Associated Diagnoses Orde r Schedule Ambulatory referral to Pain Management Outpatient Referral Routine Lumbar radiculopathy Once for 1 Occurrences starting 05/06/2024 until 05/06/2024 documented as of this encounter Goals Goal Patient Goal Type Associated Problems Recent Progress Patient-Stated? Author [facility] No Janice Pace RN Note: Patient will establish a comfort-function goal and identify the pain level that will allow the patient to perform desired activities and achieve an acceptable quality of life. documented as of this encounter Results * Imaging Lumbar/Sacral Selective Nerve Root INJ (TFE) Left (72225) (05/25/2024 1:54 PM PRODUCTION QUALITY MANAGER) Narrative [facility] - 05/25/2024 1:55 PM PRODUCTION QUALITY MANAGER The images from this study are not interpreted by Radiology. ??Please refer to the physician's procedure / OR operative note. us Kindra Cardoza MD IMG PAIN MGMT PROCEDURE S Final Result [facility] documented in this encounter Visit Diagnoses Diagnosis Lumbar radiculopathy- Primary Thoracic or lumbosacral neuritis or radiculitis, unspecified Closed fracture of left tibial plateau Lumbar radiculopathy Thoracic or lumbosacral neuritis or radiculitis, unspecified documented in this encounter Discontinued Medications Medication Sig Discontinue Reason Start Date End Da te morphine (MSIR) 15 mg tablet Take 1 tablet (15 mg total) by mouth every 4 (four) hours as needed Therapy completed 05/06/2024 traMADol (ULTRAM) 50 mg tablet 50 mg. Therapy completed 09/24/2010 05/06/2024 documented as of this encounter Historical Medications * This list may reflect changes made after this encounter. aspirin 81 mg enteric coated tablet Take 1 tablet (81 mg total) by mouth daily added in this encounter Care Teams Butt Welder Relationship Specialty Start Date End Date Tim Altman MD [address] [place] [address] PCP - General 04/03/11 documented as of this encounter
--- OUTSIDE RECORDS SUMMARY | 2024-06-17 14:54 | XMS_ITS | Encounter Summary ---
Author Organization [facility] Medical Group Address [address] [place] [address] Care Team Providers Care Pin Chaser Name Role Phone Tim Altman MD Primary Care Provider [phone]- [phone] Reason for Referral * Diagnostic Imaging (Routine) - Closed Specialty Diagnoses / Procedures Referred By Dariela t Referred To Contact Procedures MAMMOGRAPHY Marilyn Campos NP Phone: tel: fax: Referral ID Status Reason Start Date Expiration Date Visits Re quested Visits Authorized [id number] Closed 07/23/2020 08/22/2021 1 1 TRICAL ENGINEER MEP Encounter Details Date Type Department Care Team (Late st Contact Info) Description 07/23/2020 Orders Only [facility] [address] [facility] [address] [place] [address] Marilyn Campos NP [address] [place] [address] [address] [facility] [address] [place] [address] Social History Tobacco Use Types Packs/Day Years Used Date Smoking Tobacco: Never Smokeless Tobacco: Never Alcohol Use Standard Drinks/Week Comments No 0 (1 standard drink = 0.6 oz pur e alcohol) PHQ-2 Answer Date Recorded PHQ-2 Score 0 02/03/2019 Comments No Sex and Gender Information Value Date Recorded Sex Assigned at Not on file Legal Sex Female 6:27 PM ELECTRICAL ENGINEER MEP Gender Identity Not on file Sexual Orientation Not on file documented as of this encounter Plan of Treatment Not on file documented as of this encounter Procedures Procedure Name Priority Date/Time Associated Diagnosis Comments MAMMOGRAPHY Schedule Routine, Read Routine (OP Routine) 07/17/2020 documented in this encounter Results * MAMMOGRAPHY (07/17/2020) Anatomical Region Laterality Modality Breast Mammography us Marilyn Campos PAINTER HELPER SIGN IMG MAMMO PROCEDURES Bety l Result documented in this encounter Visit Diagnoses Not on filedocumented in this encounter Care Teams Pin Chaser Relationship Specialty Start Date End Date Tim Altman MD [address] [place] [address] PCP - General 04/03/11 documented as of this encounter
--- OUTSIDE RECORDS SUMMARY | 2024-06-17 14:55 | XMS_ITS | Encounter Summary ---
Author Organization [facility] Medical Group Address [address] [place] [address] Care Team Providers Care Circus Artist Name Role Phone Tim Altman MD Primary Care Provider [phone]- [phone] Reason for Referral * Diagnostic Imaging (Routine) - Closed Specialty Diagnoses / Procedures Referred By Dariela nettles Referred To Contact Diagnoses Abnormal mammogram Procedures US Breast Complete left Marilyn Campos NP Phone: tel: fax: External Order Referral ID Status Reason Start Date Expiration Date Visits Re quested Visits Authorized [id number] Closed 12/18/2017 06/29/2019 1 1 * Diagnostic Imaging (Routine) - Closed Specialty Diagnoses / Procedures Referred By Dariela nettles Referred To Contact Diagnoses Abnormal mammogram Procedures DIAGNOSTIC MAMMOGRAM LEFT W RAFAEL Marilyn Campos NP Phone: tel: fax: External Order Referral ID Status Reason Start Date Expiration Date Visits Re quested Visits Authorized [id number] Closed 12/18/2017 06/29/2019 1 1 Reason for Visit * Reason Onset Date Comments Test Results 12/18/2017 Mamm BIRADS 0 Encounter Details Date Type Department Care Team (Late st Contact Info) Description 12/18/2017 Telephone [facility] [address] [facility] [address] [place] [address] Mavis Alvarado MA Test Results (Mamm BIRADS 0) Social History Tobacco Use Types Packs/Day Years Used Date Smoking Tobacco: Never Smokeless Tobacco: Never Alcohol Use Standard Drinks/Week Comments No 0 (1 standard drink = 0.6 oz pur e alcohol) Comments No Sex and Gender Information Value Date Recorded Sex Assigned at Not on file Legal Sex Female 6:27 PM SURVEYOR HELPER Gender Identity Not on file Sexual Orientation Not on file documented as of this encounter Miscellaneous Notes * Telephone Encounter - Marilyn Campos NP - 12/21/2017 1:16 PM CDT Noted and agree. * Telephone Encounter - Mavis Alvarado MA - 12/18/2017 9:25 AM CDT Order for additional testing Funmi. Mamm and us of left breast order. Faxed. Shyla from [facility] will contact pt. To schedule appt. Pt also made aware. documented in this encounter Plan of Treatment Scheduled Orders Name Type Priority Associated Diagnoses Orde r Schedule DIAGNOSTIC MAMMOGRAM LEFT W RAFAEL Imaging Schedule Routine, Read Routine (OP Routine) Abnormal mammogram Expected: 12/18/2017, Expires: 02/18/2019 US Breast Complete left Imaging Schedule Routine, Read Routine (OP Routine) Abnormal mammogram Expected: 12/18/2017, Expires: 12/18/2018 documented as of this encounter Visit Diagnoses Diagnosis Abnormal mammogram- Primary Abnormal mammogram, unspecified documented in this encounter Care Teams Circus Artist Relationship Specialty Start Date End Date Tim Altman MD [address] [place] [address] PCP - General 04/03/11 documented as of this encounter
--- OUTSIDE RECORDS SUMMARY | 2024-06-17 14:55 | XMS_ITS | Encounter Summary ---
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 vaginal itching Encounter Details Date Type Department Care Team (Late st Contact Info) Description 12/21/2017 Telephone [facility] [address] [facility] [address] [place] [address] Mavis Alvarado MA SECURITY DOOR INSTALLER Problem (vaginal itching) Social History Tobacco Use Types Packs/Day Years Used Date Smoking Tobacco: Never Smokeless Tobacco: Never Alcohol Use Standard Drinks/Week Comments No 0 (1 standard drink = 0.6 oz pur e alcohol) Comments No Sex and Gender Information Value Date Recorded Sex Assigned at Not on file Legal Sex Female 6:27 PM SALES SECRETARY Gender Identity Not on file Sexual Orientation Not on file documented as of this encounter Ordered Prescriptions Prescription Sig Dispense Quantity Refills Last Filled Start Date End Date terconazole (TERAZOL 7) 0.4 % vaginal creamIndications:V ulvovaginal Candidiasis Insert 1 applicator into the vagina nightly. 45 g 12/21/2017 9 documented in this encounter Miscellaneous Notes * Telephone Encounter - Mavis Alvarado MA - 12/21/2017 3:05 PM CDT Pt called today c/o vaginal itching and burning. Pt has been taking ABX for the last week. Poss. Yeast. ERX'd terazol advised pt to call office if no improvements. documented in this encounter Plan of Treatment Not on file documented as of this encounter Visit Diagnoses Not on filedocumented in this encounter Care Teams Ror Engineer Relationship Specialty Start Date End Date Tim Altman MD [address] [place] [address] PCP - General 04/03/11 documented as of this encounter
--- OUTSIDE RECORDS SUMMARY | 2024-06-17 14:55 | XMS_ITS | Encounter Summary ---
Author Organization [facility] Healthcare Address [address] [place] [address] Care Team Providers Care Dude Ranch Manager Name Role Phone Unavailable Primary Care Provider Unavailabl e Encounter Details Date Type Department Care Team (Late st Contact Info) Description 07/16/2010 12:01 AM AUDIO RECORDING ENGINEER - 07/16/2010 4:18 PM AUDIO RECORDING ENGINEER Hospital Encounter [facility] Lynda Bhakta MD Encounter for other physical therapy; Aftercare following other surgery of nervous system Social History Tobacco Use Types Packs/Day Years Used Date Smoking Tobacco: Never Assessed Comments Unknown Sex and Gender Information Value Date Recorded Sex Assigned at Not on file Legal Sex Female 6:27 PM AUDIO RECORDING ENGINEER Gender Identity Not on file Sexual Orientation Not on file documented as of this encounter Plan of Treatment Not on file documented as of this encounter Visit Diagnoses Diagnosis Encounter for other physical therapy Aftercare following other surgery of nervous system documented in this encounter
--- OUTSIDE RECORDS SUMMARY | 2024-06-17 14:55 | XMS_ITS | Encounter Summary ---
Author Organization [facility] Address [address] [place] [address] Care Team Providers Care Cfo Name Role Phone Tim Altman MD Primary Care Provider [phone]- [phone] Reason for Visit * Reason Comments Gynecologic Exam Encounter Details Date Type Department Care Team (Late st Contact Info) Description 12/11/2016 1:00 PM CDT Office Visit [facility] 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 year old female who presents for a well woman exam. Contraception:Bilateral Tubal Ligation Menstrual History: No LMP recorded. Patient is postmenopausal. OB History Para Term AB Living 2 2 SAB TAB Ectopic Multiple Live Births # Outcome Date GA Labor/2nd Weight Sex Delivery Anes PTL Living Name Location Delivering Clinician 1 2 Past Medical History: Diagnosis Date ??? HX [...] ??? Tension headache Headache, tension Current Outpatient Prescriptions: ??? acetaminophen (TYLENOL) 325 mg tablet, take 1 tablet by oral route every 4 hours as needed, Disp: , Rfl: 0 ??? calcium 500 mg tablet, 500 mg., [...] every day, Disp: 0, Rfl: 0 ??? methotrexate 2.5 mg tablet, take 1 [...] tablet, 50 mg., Disp: , Rfl: 0 ??? adalimumab (HUMIRA) 40 mg/0.8 mL syringe kit, , Disp: 0 kit, Rfl: 0 ??? ALPRAZolam (XANAX) 0.5 mg tablet, take 1 tablet by oral route every day (Patient not taking: Reported on 12/11/2016 ), Disp: 0, Rfl: 0 ??? pregabalin (LYRICA) 75 mg capsule, take 1 capsule (75MG) by oral route 2 times every day (Patient not taking: Reported on 12/11/2016 ), Disp: , Rfl: 0 ??? sertraline (ZOLOFT) 100 mg tablet, take 1 tablet by oral route every day (Patient not taking: Reported on 12/11/2016 ), Disp: 0, Rfl: 0 Allergies Allergen Reactions ??? Adhesive Tape-Silicones Rash ??? Codeine Chest tightness ??? Hydrocodone Chest tightness ??? Penicillins Rash Family History Problem Relation Age of Onset ??? Hypertension Mother Hypertension; ??? Heart disease Mother Heart disease; ??? Thyroid disease Mother Thyroid disease; ??? Cancer Mother cancer; ??? Osteoporosis Mother Osteoporosis; ??? Breast cancer Mother's Sister Cancer, breast; ??? Ovarian cancer Mother's Sister Cancer, ovarian; ??? Heart disease Father Heart disease; ??? Heart disease Other Heart disease; Social History Social History ??? Marital status: Spouse name: N/A ??? Number of children: N/A ??? Years of education: N/A Social History Main Topics ??? Smoking status: Never Smoker ??? Smokeless tobacco: Never Used ??? Alcohol use No ??? Drug use: No ??? Sexual activity: Not Asked Other Topics Concern ??? None Social History Narrative History of Child Abuse: n History of Domenstic Violence: n Review of Systems Constitutional: Negative for chills, fatigue, fever and unexpected weight change. HENT: Negative for hearing loss, sore throat, tinnitus and trouble swallowing. Eyes: Negative for pain and visual disturbance. [...] pain, vaginal bleeding and vaginal discharge. Musculoskeletal: Negative for arthralgias, back pain, joint swelling and myalgias. Skin: Negative for color change and rash. Neurological: Negative for dizziness, numbness and headaches. Hematological: Does not bruise/bleed easily. Psychiatric/Behavioral: Negative for dysphoric mood, sleep disturbance and suicidal ideas. The patient is not nervous/anxious. Objective: BP 138/76 Wt 99.8 kg (220 lb) BMI 37.76 kg/m?? Physical Exam Constitutional: She is oriented to person, place, and time. She appears well- developed and well-nourished. Eyes: Pupils are equal, round, and reactive to light. Neck: Normal range of motion. Cardiovascular: Normal rate and regular rhythm. Pulmonary/Chest: Effort normal and breath sounds normal. Abdominal: Soft. Genitourinary: Vagina normal and uterus normal. Musculoskeletal: Normal range of motion. Neurological: She is alert and oriented to person, place, and time. Skin: Skin is warm and dry. Psychiatric: She has a normal mood and affect. Her behavior is normal. Immunizations: discussed. Assessment and Plan: Normal exam with obesity. Diagnoses and all orders for this visit: 1. Well woman exam (Primary) Comments: Encourage dietary calcium equaling 1200 mg/day; vitamin D3, 1-2000 IU per day; call office with anygynecological health issues. 2. Screening for colon cancer Comments: Hemosure negative. Orders: - POCT occult blood stool 3. Encounter for screening mammogram for malignant neoplasm of breast Comments: Await mammogram results and encourage annual mammogram screenings. Orders: - Screening Mammogram bilateral; Future 4. Osteopenia, unspecified location Comments: Await DEXA scan results; see above note regarding calcium and vitamin D intake. Orders: - Dexa Axial Skeleton Bone Density 1 Or 2 Site; Future Other orders - MAMMOGRAPHY - PAP SMEAR WITH HPV Recommended screenings and preventive care discussed: Breast cancer: Breast Self Exam encouraged. Pap deferred, Calcium and vitamin D discussed. and Cholesterol followed by PCP Low fat diet and exercise encouraged. NAA Cheng 12/11/2016 documented in this encounter Plan of Treatment Not on file documented as of this encounter Procedures Procedure Name Priority Date/Time Associated Diagnosis Comments POCT OCCULT BLOOD STOOL, NOT FOR NEOPLASM SCREENING Routine 12/11/2016 1:58 PM CDT Screening for colon cancer MAMMOGRAPHY Routine 12/05/2015 PAP SMEAR WITH HPV Routine 10/30/2014 documented in this encounter Results * Screening Mammogram bilateral (12/17/2017) Anatomical Region Laterality Modality Breast Bilateral Mammography Marilyn Campos ELECTRONIC INDUSTRIAL CONTROLS MECHANIC IMG MAMMO PROCEDURES Bety l Result * POCT occult blood stool (12/11/2016 1:58 PM CDT) Fecal occult blood, POC Negative Lot Number [id number] QC Control Line Acceptable Stool 12/11/2016 1:58 PM CDT Marilyn Campos ELECTRONIC INDUSTRIAL CONTROLS MECHANIC POINT OF CARE TEST ORDERA BLES Final Result * MAMMOGRAPHY (12/05/2015) HM Mammogram Normal Anatomical Region Laterality Modality Other Result [facility] Historical Provider HEALTH MAINTENANCE Final Result * PAP SMEAR WITH HPV (10/30/2014) Pap smear Normal Historical Provider HEALTH MAINTENANCE Final Result documented in this encounter Visit Diagnoses Diagnosis Well woman exam- Primary Routine general medical examination at a health care facility Screening for colon cancer Special screening for malignant neoplasms, colon Encounter for screening mammogram for malignant neoplasm of breast Osteopenia, unspecified location documented in this encounter Historical Medications * This list may reflect changes made after this encounter. CYANOCOBALAMIN, VITAMIN B-12, ORALIndications:Pr evention of Vitamin B12 Deficiency Take 100 mcg by mouth daily. added in this encounter Care Teams Cfo Relationship Specialty Start Date End Date Tim Altman MD [address] [place] [address] PCP - General 04/03/11 documented as of this encounter
--- OUTSIDE RECORDS SUMMARY | 2024-06-17 14:55 | XMS_ITS | Encounter Summary ---
Author Organization [facility] Healthcare Address [address] [place] [address] Care Team Providers Care Medical Doctor Md/Medical Director Name Role Phone Tim Altman MD Primary Care Provider [phone]- [phone] Encounter Details Date Type Department Care Team (Latest Contact Info) Description 11/07/2016 3:21 PM CDT - 11/19/2016 11:59 PM CDT Hospital Encounter [facility] INTERIM Casper Smith MD [address] [address] Discharge Disposition: Discharge to home or self care Social History Tobacco Use Types Packs/Day Years Used Date Smoking Tobacco: Never Alcohol Use Standard Drinks/Week Comments No 0 (1 standard drink = 0.6 oz pur e alcohol) Comments Unknown Sex and Gender Information Value Date Recorded Sex Assigned at Not on file 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 Gender Identity Not on file Sexual Orientation Not on file documented as of this encounter Medications at Time of Discharge acetaminophen (TYLENOL) 325 mg tablet take 1 tablet by oral route every 4 hours as needed 0 11/19/2010 carbidopa-levodop a CR (SINEMET CR) 50-200 mg per CR tablet take 1 tablet by oral route 2 times every day 0 0 10/30/2014 folic acid (FOLVITE) 1 mg tablet take 1 tablet by oral route every day 0 0 10/19/2013 gabapentin (NEURONTIN) 600 mg tablet take 1 tablet by oral route 3 times every day 0 0 10/19/2013 methotrexate 2.5 mg tablet take 1 tablet by oral route every 12 hours for 3 doses given as a course once weekly 0 0 10/19/2013 metoprolol (LOPRESSOR) 25 mg tablet take 1 tablet (25MG) by oral route 2 times every day 0 09/24/2010 omeprazole (PriLOSEC) 40 mg capsule take 1 capsule by oral route every day before a meal 0 0 10/19/2013 predniSONE (DELTASONE) 5 mg tablet take (0.5MG/KG) by oral route every day 0 0 10/19/2013 adalimumab (HUMIRA) 40 mg/0.8 mL syringe kit 0 kit 0 10/30/2014 12/30/2018 ALPRAZolam (XANAX) 0.5 mg tablet take 1 tablet by oral route every day 0 0 10/19/2013 12/17/2017 calcium 500 mg tablet 500 mg. 0 09/24/2010 04/15/2021 cholecalciferol (VITAMIN D3) 2,000 unit capsule 0 09/24/2010 04/15/2021 pregabalin (LYRICA) 75 mg capsule take 1 capsule (75MG) by oral route 2 times every day 0 09/24/2010 12/30/2018 sertraline (ZOLOFT) 100 mg tablet take 1 tablet by oral route every day 0 0 10/19/2013 12/30/2018 traMADol (ULTRAM) 50 mg tablet 50 mg. 0 09/24/2010 05/06/2024 documented as of this encounter Discharge Disposition Disposition Code Departure Means Destination Discharge to home or self care documented in this encounter Plan of Treatment Not on file documented as of this encounter Visit Diagnoses Not on filedocumented in this encounter Care Teams Medical Doctor Md/Medical Director Relationship Specialty Start Date End Date Tim Altman MD [address] [place] [address] PCP - General 04/03/11 documented as of this encounter
--- OUTSIDE RECORDS SUMMARY | 2024-06-17 14:55 | XMS_ITS | Encounter Summary ---
Author Organization [facility] Address [address] [place] [address] Care Team Providers Care Wellness Specialist Name Role Phone Tim Altman MD Primary Care Provider [phone]- [phone] Reason for Referral * Diagnostic Lab (Routine) - Closed Specialty Diagnoses / Procedures Referred By Contac t Referred To Contact Lab Diagnoses Well woman exam Procedures Imaging Pap and HPV mRNA E6/E7 Lucía Berger NP Phone: tel: fax: Referral ID Status Reason Start Date Expiration Date Visits Re quested Visits Authorized [id number] Closed 12/17/2017 06/28/2019 1 1 * Diagnostic Imaging (Routine) - Closed Specialty Diagnoses / Procedures Referred By Contac t Referred To Contact Diagnoses Screening for osteoporosis Procedures Dexa Axial Skeleton Bone Density 1 or 2 Site Lucía Berger NP Phone: tel: fax: External Order Referral ID Status Reason Start Date Expiration Date Visits Re quested Visits Authorized [id number] Closed 12/17/2017 06/28/2019 1 1 Reason for Visit * Reason Comments Gynecologic Exam Encounter Details Date Type Department Care Team (Late st Contact Info) Description 12/17/2017 8:45 AM CDT Office Visit [address] [place] [address] Lucía Berger NP [address] [place] [address] [address] [address] Well woman exam (Primary Dx); Screening for osteoporosis; Screen for colon cancer Social History Tobacco Use Types Packs/Day Years Used Date Smoking Tobacco: Never Smokeless Tobacco: Never Alcohol Use Standard Drinks/Week Comments No 0 (1 standard drink = 0.6 oz pur e alcohol) Comments No Sex and Gender Information Value Date Recorded Sex Assigned at Not on file 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 year old female who presents for a well woman exam. She has no complaints or health concerns today. Contraception:Menopause Menstrual History: No LMP recorded. Patient is postmenopausal. Sexual History: OB History Para Term AB Living 2 [...] as needed, Disp: , Rfl: 0 ??? adalimumab (HUMIRA) 40 mg/0.8 mL syringe kit, , Disp: 0 kit, Rfl: 0 ??? B.breve-L.acid-L.rham-S.thermo 3 billion cell tablet,chewable, Take by mouth. Gabriel Marrufoadanjoceline, Disp: , Rfl: ??? calcium 500 mg [...] every day, Disp: 0, Rfl: 0 ??? inFLIXimab (REMICADE) 100 mg injection, Pt states its IV every six weeks, Disp: , Rfl: ??? methotrexate 2.5 mg [...] 50 mg., Disp: , Rfl: 0 ??? pregabalin (LYRICA) 75 mg [...] chills, fever and unexpected weight change. HENT: Positive for sore throat. Negative for hearing loss, tinnitus and trouble swallowing. Nasal dryness Eyes: Positive for pain. Negative for visual disturbance. Dry eyes Respiratory: Negative for cough, shortness of breath and wheezing. Cardiovascular: Negative for chest pain, palpitations and leg swelling. Gastrointestinal: Positive for abdominal pain. Negative for blood in stool, constipation, diarrhea,nausea and vomiting. Endocrine: Negative for cold intolerance, heat intolerance, polydipsia and polyuria. Genitourinary: Positive for frequency. Negative for dyspareunia, dysuria, hematuria, pelvic pain, vaginal bleeding and vaginal discharge. Musculoskeletal: Positive for arthralgias, back pain, joint swelling and myalgias. Negative for gait problem. Skin: Positive for rash. Negative for color change. Allergic/Immunologic: Negative. Neurological: Positive for weakness and headaches. Negative for dizziness and numbness. Sensitivity in hands and feet Hematological: Does not bruise/bleed easily. Psychiatric/Behavioral: Negative for confusion, decreased concentration, dysphoric mood, sleep disturbance and suicidal ideas. The patient is not nervous/anxious. Breast: Negative for tenderness, breast redness, breast discharge and lump(s). Objective: BP 116/70 Ht 162.6 cm (5' 4 ) Wt 210 lb (95.3 kg) BMI 36.05 kg/m?? Physical Exam Constitutional: She is oriented to person, place, and time. She appears well- developed and well-nourished. Neck: Neck supple. Cardiovascular: Normal rate, regular rhythm and normal heart sounds. Pulmonary/Chest: Effort normal and breath sounds normal. Right breast exhibits no mass, no nipple discharge, no skin change and no tenderness. Left breast exhibits no mass, no nipple discharge, no skin change and no tenderness. Abdominal: Soft. There is no hepatosplenomegaly. Genitourinary: Vagina normal and uterus normal. Rectal exam shows external hemorrhoid and guaiac positive stool. There is no lesion on the right labia. There is no lesion on the left labia. Cervix exhibits no motion tenderness and no discharge. Right adnexum displays no mass, no tenderness and no fullness. Left adnexum displays no mass, no tenderness and no fullness. No vaginal discharge found. Neurological: She is alert and oriented to person, place, and time. Skin: Skin is warm and dry. Psychiatric: She has a normal mood and affect. Her behavior is normal. Vitals reviewed. Immunizations: discussed. Assessment and Plan: Normal exam. Diagnoses and all orders for this visit: Well woman exam (Primary) Comments: Continue yearly mammograms Orders: - Imaging Pap and HPV mRNA E6/E7; Future Screening for osteoporosis - Dexa Axial Skeleton Bone Density 1 or 2 Site; Future Screen for colon cancer Comments: Hemasure positive - refer to GI for evaluation Orders: - POCT fecal occult blood Recommended screenings and preventive care discussed: Breast cancer: Breast Self Exam encouraged. Pap and HR HPV done., MVI daily recommended. and Cholesterol followed by PCP. Low fat, low carb, and increased calcium diet and daily weight bearing exercise encouraged. Return in about 1 year (around 12/17/2018) for Annual physical. Lucía Berger NP 12/17/2017 documented in this encounter Plan of Treatment Not on file documented as of this encounter Procedures Procedure Name Priority Date/Time Associated Diagnosis Comments POCT FECAL OCCULT BLOOD, NOT FOR NEOPLASM SCREENING Routine 12/17/2017 10:48 AM CDT Screen for colon cancer IMAGING PAP AND HPV MRNA E6/E7 Routine 12/17/2017 10:45 AM CDT Well woman exam documented in this encounter Results * Dexa Axial Skeleton Bone Density 1 or 2 Site (01/06/2018) Anatomical Region Laterality Modality Body N/A Radiographic Irma ging us Lucía Berger NP IMG DXA PROCEDURES Final Result * POCT fecal occult blood (12/17/2017 10:48 AM CDT) Fecal Globin, POC postive Comment:referred to GI Rectum 12/17/2017 10:4 8 AM CDT us Lucía Berger NP POINT OF CARE TEST ORDERABLES Fi nal Result * Imaging Pap and HPV mRNA E6/E7 (12/17/2017 10:45 AM CDT) Report status CANCELED [facility] Comment:Result canceled by t he ancillary CLINICAL INFORMATION: [facility] Comment:Information not prov ided LMP [facility] Comment:INFORMATION NOT PROV IDED Previous Pap [facility] Comment:INFORMATION NOT PROV IDED Prev. Bx [facility] Comment:INFORMATION NOT PROV IDED SOURCE: [facility] Comment:Information not prov ided Pap, specimen adequacy [facility] Comment:SATISFACTORY FOR DASHAWN LUATION Pap, general categorization [facility]CELED [facility] Comment:Result canceled by t he ancillary HPV interp [facility] Comment: Negative for intraepithelial lesion or malignancy. Atrophic pattern; predominantly parabasal cells Infection: CANCELED [facility] Comment:Result canceled by t he ancillary COMMENTS [facility] Comment: This Pap test has been evaluated with computer assisted technology. Fabric Finisher [facility] Comment: YQ, CT(ASCP) CT screening location: [place] [address] [place] [address] Review linen supervisor CANCELED [facility] - Comment:Result canceled by t he ancillary Pathologist [facility]CELED [facility] Comment:Result canceled by t he ancillary Comment [facility] - Comment: EXPLANATORY NOTE: The Pap is a screening test for cervical cancer. It is not a diagnostic test and is subject to false negative and false positive results. It is most reliable when a satisfactory sample, regularly obtained, is submitted with relevant clinical findings and history, and when the Pap result is evaluated along with historic and current clinical information. Human papillomavirus RNA, High Risk E6/E7 Not Detected Not Detected [facility] - Comment: This test was performed using the APTIMA HPV Assay ([employer] This assay detects E6/E7 viral messenger RNA (mRNA) from 14 high-risk HPV types (16,18,31,33,35,39,45,51,52,56,58,59,66,68). The analytical performance characteristics of this assay have been determined by [facility]. The modifications have not been cleared or approved by the FDA. This assay has been validated pursuant to the CLIA regulations and is used for clinical purposes. Endocervical 12/17/2017 10:4 5 AM CDT 12/18/2017 5:28 AM CDT Narrative Resulting Agency Comment Performing Organization Information: ?Site ID: ?Name: [facility] ?Address: [facility] [address] [place] [address] ?Director: Agustina Mccarty us Lucía Berger NP LAB PATHOLOGY ORDERABLES Final R esult [facility] - [place] documented in this encounter Visit Diagnoses Diagnosis Well woman exam- Primary Routine general medical examination at a health care facility Screening for osteoporosis Special screening for osteoporosis Screen for colon cancer Special screening for malignant neoplasms, colon documented in this encounter Discontinued Medications Medication Sig Discontinue Reason Start Date End Da te ALPRAZolam (XANAX) 0.5 mg tablet take 1 tablet by oral route every day Therapy completed 10/19/2013 12/17/2017 documented as of this encounter Historical Medications * This list may reflect changes made after this encounter. B.breve-L.acid-L .rham-S.thermo 3 billion cell tablet,chewable Take by mouth. Brand Florqjen inFLIXimab (REMICADE) 100 mg injection Pt states its IV every six weeks 12/30/2018 added in this encounter Care Teams Wellness Specialist Relationship Specialty Start Date End Date Tim Altman MD [address] [place] [address] PCP - General 04/03/11 documented as of this encounter
--- OUTSIDE RECORDS SUMMARY | 2024-06-17 14:55 | XMS_ITS | Encounter Summary ---
Author Organization [facility] Address [address] [place] [address] Care Team Providers Care Platform Material Handler Manager Name Role Phone Tim Altman MD Primary Care Provider [phone] Encounter Details Date Type Department Care Team (Late st Contact Info) Description 01/07/2017 Orders Only [facility] Health Information Management [address] [place] [address] Scanning, Provider Social History Tobacco Use Types Packs/Day Years Used Date Smoking Tobacco: Never Smokeless Tobacco: Never Alcohol Use Standard Drinks/Week Comments No 0 (1 standard drink = 0.6 oz pur e alcohol) PHQ-2 Answer Date Recorded PHQ-2 Score 0 02/03/2019 Comments No Sex and Gender Information Value Date Recorded Sex Assigned at Not on file 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 Gender Identity Not on file Sexual Orientation Not on file documented as of this encounter Plan of Treatment Not on file documented as of this encounter Procedures Procedure Name Priority Date/Time Associated Diagnosis Comments SCAN - RADIOLOGY/IMAGING 01/07/2017 3:43 PM CDT documented in this encounter Results * SCAN - RADIOLOGY/IMAGING (01/07/2017 3:43 PM CDT) Anatomical Region Laterality Modality Other us Provider Scanning Final Result documented in this encounter Visit Diagnoses Not on filedocumented in this encounter Care Teams Platform Material Handler Manager Relationship Specialty Start Date End Date Tim Altman MD [address] [place] [address] PCP - General 04/03/11 documented as of this encounter
--- OUTSIDE RECORDS SUMMARY | 2024-06-17 14:55 | XMS_ITS | Encounter Summary ---
Author Organization [facility] Healthcare Address [address] [place] [address] Care Team Providers Care Biomedical Equipment Technician Name Role Phone Tim Altman MD Primary Care Provider [phone] Encounter Details Date Type Department Care Team (Late st Contact Info) Description 03/17/2011 10:30 AM CDT - 03/17/2011 11:59 PM CDT Hospital Encounter [place] [address] [address] Encounter for other physical therapy; Effusion of lower leg joint Social History Tobacco Use Types Packs/Day Years Used Date Smoking Tobacco: Never Alcohol Use Standard Drinks/Week Comments No 0 (1 standard drink = 0.6 oz pur e alcohol) Comments Unknown Sex and Gender Information Value Date Recorded Sex Assigned at Not on file 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 0 09/24/2010 04/15/2021 cholecalciferol (VITAMIN D3) 2,000 unit capsule 0 09/24/2010 04/15/2021 pregabalin (LYRICA) 75 mg capsule take 1 capsule (75MG) by oral route 2 times every day 0 09/24/2010 12/30/2018 traMADol (ULTRAM) 50 mg tablet 50 mg. 0 09/24/2010 05/06/2024 documented as of this encounter Plan of Treatment Not on file documented as of this encounter Visit Diagnoses Diagnosis Encounter for other physical therapy Effusion of lower leg joint documented in this encounter Care Teams Biomedical Equipment Technician Relationship Specialty Start Date End Date Tim Altman MD [address] [place] [address] PCP - General 09/24/10 04/02/11 documented as of this encounter
--- OUTSIDE RECORDS SUMMARY | 2024-06-17 14:55 | XMS_ITS | Encounter Summary ---
Author Organization [facility] Healthcare Address [address] [place] [address] Care Team Providers Care Hydrocrane Operator Name Role Phone Tim Altman MD Primary Care Provider [phone]- [phone] Encounter Details Date Type Department Care Team (Late st Contact Info) Description 03/07/2011 12:01 AM CDT - 03/14/2011 11:59 PM CDT Hospital Encounter [place] [address] [address] Encounter for other physical therapy; Effusion of lower leg joint Social History Tobacco Use Types Packs/Day Years Used Date Smoking Tobacco: Never Alcohol Use Standard Drinks/Week Comments No 0 (1 standard drink = 0.6 oz pur e alcohol) Comments Unknown Sex and Gender Information Value Date Recorded Sex Assigned at Not on file 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
--- OUTSIDE RECORDS SUMMARY | 2024-06-17 14:55 | XMS_ITS | Encounter Summary ---
Author Organization [facility] Healthcare Address [address] [place] [address] Care Team Providers Care Kiln Repairer Name Role Phone Unavailable Primary Care Provider Unavailabl e Encounter Details Date Type Department Care Team (Late st Contact Info) Description 05/22/2010 12:01 AM SOFTWARE SUPPORT ENGINEER - 06/14/2010 11:59 PM SOFTWARE SUPPORT ENGINEER Hospital Encounter [facility] Lynda Bhakta MD Encounter for other physical therapy; Aftercare following other surgery of nervous system Social History Tobacco Use Types Packs/Day Years Used Date Smoking Tobacco: Never Assessed Comments Unknown Sex and Gender Information Value Date Recorded Sex Assigned at Not on file Legal Sex Female 6:27 PM SOFTWARE SUPPORT ENGINEER Gender Identity Not on file Sexual Orientation Not on file documented as of this encounter Plan of Treatment Not on file documented as of this encounter Visit Diagnoses Diagnosis Encounter for other physical therapy Aftercare following other surgery of nervous system documented in this encounter
--- OUTSIDE RECORDS SUMMARY | 2024-06-17 14:55 | XMS_ITS | Encounter Summary ---
Author Organization [facility] Healthcare Address [address] [place] [address] Care Team Providers Care Pantographer Name Role Phone Unavailable Primary Care Provider Unavailabl e Encounter Details Date Type Department Care Team (Late st Contact Info) Description 06/15/2010 12:01 AM IP PARALEGAL - 07/15/2010 11:59 PM IP PARALEGAL Hospital Encounter [facility] Lynda Bhakta MD Encounter for other physical therapy; Aftercare following other surgery of nervous system Social History Tobacco Use Types Packs/Day Years Used Date Smoking Tobacco: Never Assessed Comments Unknown Sex and Gender Information Value Date Recorded Sex Assigned at Not on file Legal Sex Female 6:27 PM IP PARALEGAL Gender Identity Not on file Sexual Orientation Not on file documented as of this encounter Plan of Treatment Not on file documented as of this encounter Visit Diagnoses Diagnosis Encounter for other physical therapy Aftercare following other surgery of nervous system documented in this encounter
== END 2024-06-10 07:49 | disposition home or self-care (01) ==
PROVIDERS: PCP Internal Medicine; Visit Provider Orthopaedic Surgery
DX: Z01.812 Encounter for preprocedural laboratory examination (principal); M17.12 Unilateral primary osteoarthritis, left knee; M54.16 Radiculopathy, lumbar region
CPT/HCPCS: 80307; 86850; 86900; 86901; 87641

== ENCOUNTER 2024-06-16 02:34 | Day surgery (SDC) | payer MEDICARE, SELFPAY ==
[2024-06-10 08:15] VITALS: BP 121/81; PULSE 83; RESP 16; TEMP 36.5; O2SAT 98; BMI 33.3
--- NOTE | 2024-06-10 08:34 | PC.NURSE ---
Addendum entered by Lesvia Tadeo RN 06/10/24 08:51: Pt is aware that she can take her Gabapentin that am too Original Note: Report to the Outpatient Waiting Room, entrance under the green pavilion located off [facility], at time __08:30am on date ___06/16/24____. Planned Procedure Time: _10:30am .? Time changes happen often and if your time is changed the preop area will call you the afternoon before. - You and your visitor will be asked to self-screen and do not enter if you have any COVID symptoms. Please call surgeon if you need to reschedule. - A mask is optional within the hospital at this time. Patients may have clear liquids (water, carbonated beverages, clear teas, apple juice) until 3 hours prior to surgery with a maximum of 20 ounces. - No food from midnight until time of surgery and no smoking. This includes no chewing gum, candy or mints.( 0730am) Take only the following medications with a SIP of water on the morning of surgery: Prednisone, Morphine, Tylenol and Tramadol if needed DO NOT STOP ANY OF YOUR OTHER PRESCRIPTION MEDICATIONS PRIOR TO SURGERY EXCEPT THE FOLLOWING Medications to discontinue per physician Hold aspirin for 7 days prior to surgery Date to take last dose___06/08/24 Hold all vitamins and supplements for 3 days prior to surgery, date to take last dose 06/12/24. Please no make-up, nail croatian, hairspray, perfume, deodorant, or body powder the day of surgery.? No jewelry (including any body piercings) or valuables the day of surgery, leave them at home.? Please take a shower or bath the night before, or the morning of, surgery with an antibacterial soap.? Wear comfortable, loose fitting clothing.? - Jewelry must be removed prior to entering the operating room.? Rings and piercings that are not removed may be cut off. - The hospital will not accept responsibility for valuables.? - Please leave all valuables, including medications, at home the day of surgery. If you are going home after surgery, a licensed scoop driver must drive you home.? - NO public transportation without another adult if you receive anesthesia. - We recommend that an adult stay with you for 24 hours following discharge. - We also recommend that you do not drive, make important decision, drink alcoholic beverages, or take any drugs that were not prescribed by your health care provider for at least 24 hours after your discharge time. Follow any additional instructions given to you from your surgeon. Telephone instructions given to ___Patient and asked if any additional questions and then verbalized understanding. Patient advised to call surgeon office or pre surgery nurse liaison [phone] if any additional questions.
[2024-06-16] VITALS (18 sets, daily range): BP systolic 103–153; BP diastolic 52–93; PULSE 72–111; RESP 9–20; TEMP 36.1–36.9; O2SAT 91–100; BMI 31.7
--- NOTE | ~2024-06-16 | XR_ITS ---
EXAMINATION: [id number] DATE: 06/16/2024 13:33 INDICATION: Postoperative evaluation following left total knee arthroplasty. TECHNIQUE: Anteroposterior and lateral views of the left knee were obtained. COMPARISON: None. FINDINGS: Cemented left total knee arthroplasty with longstem tibial component and with patellar resurfacing ap pears well seated and in near anatomic alignment. No fractures identified. Expected postoperative sub cutaneous and intra-articular gas. IMPRESSION: 1. Left total knee arthroplasty, negative for postoperative purposes. Reviewed, dictated and finalized at location B. [facility]
--- NOTE | 2024-06-16 07:59 | P.PNAN_ITS ---
Anes - Initial Pre Proc Eval Procedure: Operation Date: 06/16/24 10:30 Proposed Procedures p Left Total Knee Arthroplasty - Raul Young MD Date/Time: 06/16/24 07:59 Surgeon: Raul Young MD Pre Op Diagnosis: primary OA left knee Patient Data Age: 68 Gender: F Height: 1.63 m Weight: 88.2 kg Last Vital Signs Temp 97.7 F 06/10/24 08:15 Pulse 83 06/10/24 08:15 Resp 16 06/10/24 08:15 BP 121/81 06/10/24 08:15 Pulse Ox 98 06/10/24 08:15 O2 Del Method Room Air 06/10/24 08:15 Allergies Allergy/AdvReac Type Severity Reaction Status Date / Time codeine Allergy Severe hypotension Verified 06/13/24 10:30 /nausea cephalexin Allergy Intermediate Swelling Verified 06/13/24 10:30 Influenza Virus Vaccines Allergy Mild Unknown Verified 06/13/24 10:30 pneumococcal vaccine Allergy Mild Unknown Verified 06/13/24 10:30 zinc Allergy Mild Rash Verified 06/13/24 10:30 amitriptyline Allergy Unknown mouth sores Verified 06/13/24 10:30 fluorescein Allergy Unknown unknown Verified 06/13/24 10:30 Penicillins Allergy Unknown Nausea/mouth Verified 06/13/24 10:30 sores Sulfa (Sulfonamide Allergy Unknown Hives Verified 06/13/24 10:30 Antibiotics) ezetimibe (From Vytorin) Allergy Unknown Verified 06/13/24 10:30 simvastatin (From Vytorin) Allergy Unknown Verified 06/13/24 10:30 hydrocodone AdvReac Mild LOW BLOOD Verified 06/13/24 10:30 PRESSURE medroxyprogesterone AdvReac Unknown Nausea Verified 06/13/24 10:30 rosuvastatin AdvReac Unknown Nausea Verified 06/13/24 10:30 TRICYCLICANTIDE Allergy Mild RASH Uncoded 06/10/24 08:14 paper tape Allergy Unknown blisters Uncoded 06/10/24 08:14 Home Medications ?Medication ?Instructions ?Recorded ?Confirmed ?Type celecoxib 200 mg capsule 200 mg PO BID 04/09/20 06/13/24 History gabapentin 600 mg tablet 600 mg PO TID 04/09/20 06/13/24 History metoprolol succinate 25 mg 50 mg PO HS 04/09/20 06/13/24 History tablet,extended release 24 hr omeprazole 40 mg capsule,delayed 40 mg PO DAILY 04/09/20 06/13/24 History release tramadol 50 mg tablet 50 mg PO TID PRN Pain 04/09/20 06/13/24 History acetaminophen 500 mg tablet 500 mg PO Q6H PRN Pain 05/27/23 06/13/24 History (Tylenol Extra Strength) azathioprine 50 mg tablet 50 mg PO DAILY 05/27/23 06/13/24 History carbidopa 25 mg-levodopa 100 mg 1 tablet PO HS LEG SPASMS 05/27/23 06/13/24 History tablet fluticasone propionate 50 1 spray intranasal DAILY 05/27/23 06/13/24 History mcg/actuation nasal spray,suspension (Flonase Allergy Relief) golimumab 50 mg/0.5 mL 50 mg subcut .Bi Monthly 05/27/23 06/13/24 History subcutaneous pen injector (Simponi) ondansetron HCl 4 mg tablet 4 mg PO Q8H PRN NASEA 05/27/23 06/13/24 History lorazepam 1 mg tablet (Ativan) 1 mg PO DAILY PRN anxiety #2 tabs 09/25/23 06/13/24 Rx prednisone 5 mg tablet 5 mg PO DAILY PRN pain #55 tabs 09/25/23 06/13/24 Rx aspirin 81 mg tablet,delayed 81 mg PO DAILY 03/10/24 06/13/24 History release (Adult Low Dose Aspirin) morphine 15 mg immediate release 15 mg PO Q8H PRN pain 03/10/24 06/13/24 History tablet Patient hx anesthesia problems: post op nausea/vomiting Family hx anesthesia problems: none Results Review: All pre-operative results and documents have been reviewed as part of the pre- operative evaluation. [facility] Past Medical History Medical History Bilateral primary osteoarthritis of knee Left patella fracture Obesity, morbid, BMI 40.0-49.9 Lumbar radiculopathy Left knee DJD Lumbar scoliosis Reflex sympathetic dystrophy of left lower extremity Insomnia GERD (gastroesophageal reflux disease) Rheumatoid arthritis Osteoporosis Fibromyalgia Fibrositis Hyperlipidemia Hypertension Surgical History Surgical History Status post total hip replacement, left (~06/23/23) Family History Family History Father Heart disease History of cancer Mother History of cancer Hypertension Cerebrovascular accident Grandparent Diabetes mellitus Grandparent Diabetes mellitus Social History Social History Smoking packs per day: 1 Smoking cigarettes per day: 20.0 Years smoked: 1 Smoking pack-years: 1.00 Smoking status: Former smoker Tobacco type: cigarettes Smoking end date: 07/23/69 Additional smoking assessment comments: DENIES ANY FORM OF TOBACCO USE Alcohol intake: never Substance use: never Substance use type: does not use Do You Feel Safe in your Home?: Yes Lack of Transportation: No Lack of Food: Never True Current Housing: I Have Housing Concerned About Future Housing: No Difficulty Paying Gas/Electric Bills: No Difficulty Paying for Meds: No Currently Unemployed: No Education: High School Diploma/GED Difficulty w/ Childcare or Family Care: No Living arrangements: with family Additional living arrangements comments: Spiritual care concerns: No Anes - Eval Final PreProcedure Day of Procedure 06/16/24 07:59 Patient weight: obese Heart: regular rate and rhythm Lungs: clear to auscultation Airway: Mallampati scale class II Neurological: alert and oriented Last oral intake: >/= 8 hours ASA classification: III Emergent: no Anesthetic plan: proceed Anesthesia type and monitoring: general LMA Other findings: EKG 04/06 NSR with RBBB Results Review: All pre-operative results and documents have been reviewed as part of the pre-operative evaluation. Informed Consent: The patient's anesthetic plan and its attendant risks and benefits were discussed with the patient/family/POA. Questions were solicited and answers provided to the satisfaction of the patient/family/POA.
[2024-06-16] MEDS: LACTATED RINGERS 1,000 ML 30 ML IV CONT ×2 (08:30→13:00)
--- NOTE | 2024-06-16 09:18 | SUR.PREOP ---
Dr Young informed by this RN that patient canceled scheduled dental procedure of crown placement for next week in order to proceed with today's surgery, he stated ok to procedure.
--- NOTE | 2024-06-16 09:41 | WPDHPUPDATE1 ---
History and Physical Update Update Date/Time: 06/16/24 09:41 History and Physical has been reviewed, including an updated exam of the patient. There are NO changes in the patient's condition. Risks, benefits, and alternatives have been discussed and questions answered. Patient agrees to proceed with procedure.
[2024-06-16] MEDS: TRANEXAMIC ACID 1,000MG/ISO100 1,000 MG/100 ML BAG 200 MG IVPB (09:49)
[2024-06-16] MEDS: ceFAZolin 2 GM/D5W 50 ML 2 GM/50 ML BAG IVPB ×2 (10:03→17:14)
[2024-06-16] MEDS: SODIUM CHLORIDE 0.9% IV 38.7 ML, ROPivacaine HCL 1% 200 MG, KETOROLAC INJ (*BKC) 15 MG,... INFILTRATE (10:51)
[2024-06-16] MEDS: VANCOMYCIN 1,250 MG/NS 250 ML 1,250 MG/250 ML BAG 200 MG IVPB (12:12)
[2024-06-16] MEDS: fentaNYL CITRATE INJ (*CRX) 100 MCG/2 ML VIAL 25 MCG IV PUSH ×8 (13:15→13:38)
[2024-06-16] MEDS: ONDANSETRON INJ 4 MG/2 ML VIAL IV PUSH (13:50)
[2024-06-16] MEDS: HYDROmorphone HCL INJ (*CRX) 1 MG/ML SYR 0.5 MG IV PUSH ×4 (13:55→15:24)
[2024-06-16] MEDS: MEPERIDINE HCL INJ (*CRX) 50 MG/ML AMPUL 12.5 MG IV PUSH (14:57)
--- NOTE | 2024-06-16 16:07 | ADMGEN ---
This patient, Lexi Mcneil, was admitted to 3 [facility] Surg Room 306-01. Patient/family oriented to hospital policies and general routines including ID bracelet, bed and alarms, visiting hours, pain management, procedures, bathroom and other care routines, personal items, smoking policy, room service/diet, and visiting hours. Information on how to activate the Rapid Response Team has been discussed. Patient/Family are encouraged to report perceived risks to care and to ask questions if they do not understand what they are told or what they should do.
--- NOTE | 2024-06-16 16:08 | P.OP_ITS ---
Procedure Note - Detailed Date of Procedure 06/16/24 Pre-op Diagnosis Left knee degenerative arthritis, s/p lateral tibial plateu fracture Post-op Diagnosis Same Procedure Performed Total knee arthroplasty, left knee with lateral tibia augmentation and cemented tibia stem. Surgeon Raul Young MD [employer] Makenna Angel PA-C Anesthesia General Indications Severe left knee degenerative arthritis. Status post remote patellar fracture and more recent lateral tibial plateau fracture. Findings Osteopenia is noted at the time of surgery. 5 mm augment laterally filled the defect very nicely. Description of Procedure The patient was brought to the operating room. A general anesthetic was administered. The leg was prepped and draped in the usual sterile fashion. The limb was elevated and the tourniquet inflated to 300 mmHg during initial exposure, and cementation. A longitudinal incision was created along the medial border of the patella and patellar tendon, and a trivector approach to the knee was performed. A mild medial release was taken. The knee was then flexed. The osteophytes were carefully removed. The intramedullary guide was placed in the femoral canal. The distal femoral resection was then taken with the oscillating saw. The collateral ligaments were carefully protected. The femur was sized and rotation assessed using posterior referencing, and confirmed by the AP axis. The 4 in 1 cutting block and box cut was used to finish the femoral cuts. The tibia was carefully exposed. The jig was applied, and the proximal tibia was resected according to preoperative plan. A lateral 5mm step cut was taken. The knee was balanced in extension. No additional releases were required. The anterior cruciate ligament and meniscal remnants were removed. The patella was measured. Patellar resection was carried out with the oscillating saw. The lug holes drilled. The osteophytes were carefully removed from the back of the knee. The knee was copiously irrigated with antibiotic solution periodically throughout the procedure. The meniscal remnants were removed. The spacer block was used to confirm equal flexion and extension gaps. No further releases were needed. The tibia was sized, reamed to 13mm and broached. Final trialing performed. The bony surfaces were prepared for cementing with pulsatile lavage. The real tibial and femoral and patellar components were cemented into position. Excess cement was carefully removed. Patellar tracking was carefully assessed. No additional releases were required. Dilute sterile Betadine soak performed for three minutes. Copious irrigation then performed. The wound was closed with #1 Vicryl suture, #2, 2-0, and 3-0 barbed suture, followed by Steri-Strips. A sterile bulky dressing was applied. Meticulous hemostasis was maintained throughout the procedure. The bipolar cautery device was used. The pain relieving mixture was injected into the periarticular tissues during the procedure. There were no complications. The patient was extubated and brought to the recovery room in stable condition after the application of sterile dressing with Dae bandage. Implants [employer] Triathlon knee system, [place] base plate cemented tibia size 5, 100 mm x 12 mm cemented tibial stem, 5 mm lateral tibial augment, Posterior cruciate stabilized cemented femoral component size 5 ,and an 13 mm posterior stabilized polyethylene insert. 35mm polyethylene patella component. Estimated Blood Loss 50 Drains No Pathology None sent Complications No immediate complications Condition Stable Disposition PACU [facility] Billing Surgery - Charge Forward: Surgery Billing
[2024-06-16] MEDS: SODIUM CHLORIDE 0.9% IV 1,000 ML 125 ML IV CONT (16:13)
[2024-06-16] MEDS: ASPIRIN 81 MG ENTERIC TABLET PO (16:13)
[2024-06-16] MEDS: ACETAMINOPHEN 325 MG TABLET 650 MG PO (17:14)
[2024-06-16] MEDS: CARBIDOPA/LEVODOPA 25/100 MG TABLET 1 TABLET PO (20:16)
[2024-06-16] MEDS: CELECOXIB 200 MG CAPSULE PO (20:16)
[2024-06-16] MEDS: FAMOTIDINE 20 MG TABLET PO (20:17)
[2024-06-16] MEDS: GABAPENTIN 300 MG CAPSULE 600 MG PO (20:17)
[2024-06-16] MEDS: METOPROLOL SUCCINATE EXT REL 50 MG TABCR PO (20:17)
[2024-06-16] MEDS: MORPHINE SULFATE (*CRX) 15 MG TAB IR PO (21:55)
[2024-06-17] MEDS: ACETAMINOPHEN 325 MG TABLET 650 MG PO ×3 (00:15→12:21)
[2024-06-17] MEDS: ceFAZolin 2 GM/D5W 50 ML 2 GM/50 ML BAG IVPB ×2 (01:54→09:08)
[2024-06-17] MEDS: MORPHINE SULFATE (*CRX) 15 MG TAB IR PO (06:11)
[2024-06-17 06:47] VITALS: BP 117/62; PULSE 76; RESP 18; TEMP 37.1; O2SAT 98
[2024-06-17 07:09] LABS: Basophils Percent Auto 0.4 % (0.2-1.2); Eosinophils Absolute Auto 0.2 K/mm3 (0-0.3); Eosinophils Percent Auto 1.6 % (0-4.4); Hematocrit 32.7 % (37.0-47.0); Hemoglobin 10.9 g/dL (12.0-15.0); Immature Granulocyte Absolute 0.03 K/mm3 (0.00-0.031); Immature Granulocyte Percent A 0.3 % (0-0.5); Lymphocytes Absolute Auto 2.97 K/mm3 (0.9-3.2); Lymphocytes Percent Auto 30.1 % (18.3-44.2); Mean Corpuscular HGB Conc 33.3 g/dl (32-36); Mean Corpuscular Hemoglobin 34.1 pg (26-34); Mean Corpuscular Volume 102.2 fl (80-100); Mean Platelet Volume 10.3 fl (7.4-10.4); Monocytes Absolute Auto 0.8 K/mm3 (0.1-0.6); Monocytes Percent Auto 7.8 % (2.6-8.5); Neutrophils Absolute Auto 5.9 K/mm3 (1.3-6.7); Neutrophils Percent Auto 59.8 % (45.5-73.1); Platelet Count Result 126 k/mm3 (150-375); Red Cell Distribution Width 14.2 % (11.5-14.5); White Blood Count 9.9 K/mm3 (4.5-10.0)
[2024-06-17 07:21] LABS: Anion Gap 1 mmol/L (4-12); Blood Urea Nitrogen 21 mg/dL (7-17); Calcium 8.9 mg/dL (8.4-10.2); Carbon Dioxide 30 mmol/L (22-30); Chloride 107 mmol/L (98-107); Estimated CRCL calculation 49 ml/min; Estimated Glomerular Filt Rate 55; Glucose 116 mg/dL (65-110); Potassium 4.6 mmol/L (3.4-5.0); Sodium 138 mmol/L (137-145)
--- NOTE | 2024-06-17 07:47 | PCPTNOTE ---
Attempted PT evaluation pt does not want to be seen until she has her AFO and until she has had breakfast. Pt does not know when AFO will be her. Nursing aware.
--- NOTE | 2024-06-17 08:17 | WPDANESPN ---
Anes - Prog Note Post-Op Date/Time: 06/17/24 08:17 Vital Signs: Last Vital Signs Temp 37.1 C 06/17/24 06:47 Pulse 76 06/17/24 06:47 Resp 18 06/17/24 06:47 BP 117/62 06/17/24 06:47 Pulse Ox 98 06/17/24 06:47 O2 Del Method Room Air 06/16/24 20:00 O2 Flow Rate 8 06/16/24 13:45 Pain Score (VAS): 2 I/O: Intake & Output 06/16/24 06/17/24 06/17/24 23:59 07:59 15:59 Intake Total 50 Balance 50 Laboratory Tests 06/17/24 06:54 06/17/24 06:54 06/17/24 06:54 WBC 9.9 RBC 3.20 L Hgb 10.9 L Hct 32.7 L MCV 102.2 H MCH 34.1 H MCHC 33.3 RDW 14.2 Plt Count 126 L MPV 10.3 Immature Gran % (Auto) 0.3 Neut % (Auto) 59.8 Lymph % (Auto) 30.1 [place] % (Auto) 7.8 Eos % (Auto) 1.6 Baso % (Auto) 0.4 Lymph # (Auto) 2.97 [place] # (Auto) 0.8 H Eos # (Auto) 0.2 Baso # (Auto) 0.0 Abs Immat Gran (auto) 0.03 Absolute Neuts (auto) 5.9 Absolute Nucleated RBC 0.000 Nucleated RBC % 0.0 Sodium 138 Potassium 4.6 Chloride 107 Carbon Dioxide 30 Anion Gap 1 L BUN 21 H Creatinine 1.00 Estim Creat Clear Calc 49 Estimated GFR 55 L Glucose 116 H Calcium 8.9 Patient Feedback: Patient satisfied with anesthetic care.
[2024-06-17 08:55] VITALS: BP 110/70; PULSE 82; RESP 18; TEMP 37.1; O2SAT 93
[2024-06-17] MEDS: azaTHIOprine 50 MG TABLET PO (09:02)
[2024-06-17] MEDS: CELECOXIB 200 MG CAPSULE PO (09:02)
[2024-06-17] MEDS: ASPIRIN 81 MG ENTERIC TABLET PO (09:02)
[2024-06-17] MEDS: predniSONE 5 MG TABLET PO (09:02)
[2024-06-17] MEDS: PANTOPRAZOLE 40 MG TABLET PO (09:02)
[2024-06-17] MEDS: GABAPENTIN 300 MG CAPSULE PO (09:02)
[2024-06-17] MEDS: FAMOTIDINE 20 MG TABLET PO (09:02)
--- NOTE | 2024-06-17 12:39 | PM.DS ---
DS: Admitting Diagnosis Discharge Date 06/17/24. Admitting Diagnosis Knee arthritis. DS: Discharge Diagnosis Discharge Diagnosis (1) Status post total left knee replacement: Code(s): Z96.652 - Presence of left artificial knee joint Status: Acute Assessment and Plan: Postop day 1: Left total knee arthroplasty. Patient tolerated procedure well. No complications. Pain manageable with pain medication. No numbness or tingling. We had a lengthy discussion regarding postoperative wound care, limitations, expectations, and exercises. Patient shows good understanding. She has had initial physical therapy and is tolerating it well. DVT prophylaxis: 81 mg baby aspirin b.i.d. for 14 days. Pain medication: She has Morphine at home that she will be taking. Patient has followup appointment with Dr. Young in 3 weeks. DS: Summary Hospital Course Reason for hospitalization: Total knee arthroplasty Hospital Course: Patient tolerated procedure well. Has had initial PT/OT. Status at Discharge Functional status at discharge: uses cane/walker Overall status at discharge: patient is progressing back to baseline Time Spent with Patient Time attestation: Total time spent providing and/or coordinating discharge services: Exam Narrative: Overweight 68 y/o female. Resting comfortably in bed. Wearing compression socks bilaterally. Dressing intact with no drainage. Mild swelling. No ecchymosis. No erythema. No hematoma. Range of motion limited due to pain. Calf nontender. Neurologic status intact. No varicosities. Distal pulses palpable. DS: Data Data Completed and Pending Labs on day of discharge: Labs from last 24 hours 06/17/24 06:54 WBC 9.9 RBC 3.20 L Hgb 10.9 L Hct 32.7 L MCV 102.2 H MCH 34.1 H MCHC 33.3 RDW 14.2 Plt Count 126 L MPV 10.3 Immature Gran % (Auto) 0.3 Neut % (Auto) 59.8 Lymph % (Auto) 30.1 [place] % (Auto) 7.8 Eos % (Auto) 1.6 Baso % (Auto) 0.4 Lymph # (Auto) 2.97 [place] # (Auto) 0.8 H Eos # (Auto) 0.2 Baso # (Auto) 0.0 Abs Immat Gran (auto) 0.03 Absolute Neuts (auto) 5.9 Absolute Nucleated RBC 0.000 Nucleated RBC % 0.0 Sodium 138 Potassium 4.6 Chloride 107 Carbon Dioxide 30 Anion Gap 1 L BUN 21 H Creatinine 1.00 Estim Creat Clear Calc 49 Estimated GFR 55 L Glucose 116 H Calcium 8.9 Discharge Plan Discharge Patient Disposition: Home, Self-Care Discharge Instructions: See green instruction sheets Patient Instructions: Total Knee Replacement (GEN) Patient Language: Luxembourgish Follow-up/Referrals: Makenna Angel, PA [[employer]] - Discharge Medications: Continued omeprazole 40 mg capsule,delayed release(DR/EC) 40 mg PO DAILY metoprolol succinate 25 mg tablet extended release 24 hr 50 mg PO HS tramadol 50 mg tablet 50 mg PO TID PRN (Reason: Pain) Patient Comments: TAKES 2 TABS IN AM 2 TABS AT NOON 2 TABS AT HS celecoxib 200 mg capsule 200 mg PO BID gabapentin 600 mg tablet 600 mg PO TID Patient Comments: TAKES ONE TAB IN AM AND TWO TABS AT HS azathioprine 50 mg tablet 50 mg PO DAILY acetaminophen [Tylenol Extra Strength] 500 mg tablet 500 mg PO Q6H PRN (Reason: Pain) ondansetron HCl 4 mg tablet 4 mg PO Q8H PRN (Reason: NASEA) Simponi 50 mg/0.5 mL pen injector 50 mg subcut .Bi Monthly Patient Comments: takes every 8 weeks morphine 15 mg tablet 15 mg PO Q8H PRN (Reason: pain) aspirin [Adult Low Dose Aspirin] 81 mg tablet,delayed release (DR/EC) 81 mg PO DAILY Patient Comments: Holding 1 week before surgery per Dr Young carbidopa-levodopa 25-100 mg tablet 1 tablet PO HS fluticasone propionate [Flonase Allergy Relief] 50 mcg/actuation [place],Suspension 1 spray INTRANASAL DAILY Rx Instructions: administer into each nostril prednisone 5 mg tablet 5 mg PO DAILY PRN (Reason: pain) Qty: 55 0RF Rx Instructions: Take 10 day 1, 9 day 2, 8 day 3, 7 day 4, 6 day 5, 5 day 6, 4 day 7, 3 day 8, 2 day 9, 1 day 10. lorazepam [Ativan] 1 mg tablet 1 mg PO DAILY PRN (Reason: anxiety) Qty: 2 0RF Rx Instructions: Take 1 tablet 1 hour prior to MRI.
[2024-06-17 12:46] VITALS: BP 98/50; PULSE 80; RESP 18; TEMP 36.2; O2SAT 93
[2024-06-17 14:08] VITALS: BP 140/64
--- OUTSIDE RECORDS SUMMARY | 2024-06-22 21:55 | XMS_ITS | Encounter Summary ---
Author Organization [facility] Address [address] [place] [address] [place] [address] Care Team Providers Care Hostess Cashier Name Role Phone Tim Altman MD Primary Care Provider Vani Waldrop MD Unavailable [phone] Casper Smith MD Unavailable Unavailable Encounter Details Date Type Department Care Team (Latest Contact Info) Description 03/01/2020 11:32 AM CDT - 03/01/2020 11:59 PM T Hospital Encounter [facility] Imaging Services - Radiology [address] [place] [address] Casper Smith MD Discharge Disposition: Home or [...] (IMURAN) 50 MG tabletIndications: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) ([facility]) Take 2 Tabs by mouth once daily. [...] (NEURONTIN) 600 MG tabletIndications: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) ([facility]),Fibromyalgia,Prima ry osteoarthritis of both knees,Insomnia,High risk medications [...] methotrexate 2.5 MG tabletIndications: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) ([facility]),Fibromyalgia,Prima ry osteoarthritis of both knees,Insomnia,High risk medications (not anticoagulants) long-term use TAKE 8 TABS BY MOUTH EVERY 7 DAYS 40 Tab 4 02/15/2015 metoprolol tartrate IR (LOPRESSOR) 25 MG tablet Take 25 mg by mouth 2 times daily. omeprazole (PRILOSEC) 40 MG capsule Take 40 mg by mouth 2 times daily. 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) ([facility]) 40mg daily x 2 days, 30mg x [...] Region Laterality Modality Pelvis, Lower Extremity Radiogra [facility] 03/01/2020 2:10 PM CDT Impressions 03/01/2020 [...] (HCC) documented in this encounter Care Teams Hostess Cashier Relationship Specialty Start Date End Date Tim Altman MD PCP - General 10/18/10 [place] [address] [address] Orthopedic Surgery 05/02/11 [place] [address] [facility] [address] [facility] 08/20/11 documented as of this encounter
--- OUTSIDE RECORDS SUMMARY | 2024-06-22 21:55 | XMS_ITS | Encounter Summary ---
Author Organization [facility] Address [address] [place] [address] [place] [address] Care Team Providers Care Development Trainer Name Role Phone Tim Altman MD Primary Care Provider [phone] Vani Waldrop MD Unavailable [phone] Casper Smith MD Unavailable Unavailable Reason for Visit * Reason Comments Refill Request Encounter Details Date Type Department Care Team (Late st Contact Info) Description 12/20/2014 Refill [facility] - Rheumatology [address] [place] [address] Casper Smith MD Refill Request Social History [...] on filedocumented in this encounter Care Teams Development Trainer Relationship Specialty Start Date End Date Tim Altman MD PCP - General 10/18/10 [place] [address] [place] [address] Orthopedic Surgery 05/02/11 [place] [address] [place] [address] Rheumatology 08/20/11 documented as of this encounter
--- OUTSIDE RECORDS SUMMARY | 2024-06-22 21:55 | XMS_ITS | Referral Summary ---
Author Organization [facility] Address [facility] [place] [address] Care Team Providers Care Locker Room Clerk Name Role Phone Tim Altman MD Primary Care Provider [phone] Vani Waldrop MD Unavailable [phone] Casper Smith MD Unavailable Unavailable Source Comments [facility],non-owned Affiliates and Associated Physician Practices is amultiple site organization consisting of ambulatory clinics and hospital sitesin [place], [place], [place] and [place]. This disclosure is being madepursuant to the Care Everywhere program and may not contain all information available regarding this patient. Last updated 18.[facility] Allergies Active Allergy Reactions Criticality Noted Date [...] azaTHIOprine (IMURAN) 50 MG tabletIndications:Rh eumatoid arthritis(714.0) ([facility]) Take 2 Tabs by mouth once daily. 60 Tab 6 07/28/2013 Active meloxicam (MOBIC) 7.5 MG tabletIndications:DJ D (degenerative joint disease) of knee Take 1-2 Tabs by mouth once daily. for 7 days to treat flare ups of pain and inflammation Repeat as needed or call Dr Smith if not better 30 Tab 6 11/02/2013 Active predniSONE (DELTASONE) 20 MG tabletIndications:Rh eumatoid arthritis(714.0) ([facility]) 40mg daily x 2 days, 30mg x [...] Active methotrexate 2.5 MG tabletIndications:Rh eumatoid arthritis(714.0) ([facility]),Fibromyalgia,P rimary osteoarthritis of both knees,Insomnia,High risk medications (not anticoagulants) long-term use TAKE 8 TABS BY MOUTH EVERY 7 DAYS 40 Tab 4 02/15/2015 Active gabapentin (NEURONTIN) 600 MG tabletIndications:Rh eumatoid arthritis(714.0) ([facility]),Fibromyalgia,P rimary osteoarthritis of both knees,Insomnia,High risk medications [...] HEPATITIS C ANTIBODY Routine 05/15/2011 3:[address] [place] High risk medications (not anticoagulants) long-term use from Last 3 Months or Most Recently Relevant to Health Maintenance Results * DEXA BONE DENSITY 2 SITES (11/23/2014) Anatomical Region Laterality Modality Other Casper Smith MD DEXA ORDERABLES * (ABNORMAL) LIPID PROFILE W TCHOL/HDL (PO REF LAB) (09/30/2013 8:00 PM CDT) Cholesterol 230(H) 125 - 200 mg/dL [facility] Comment: Test Performed at: [facility] [address] [place], [place] ??[address] MUKUND GILES DO,MPH HDL Cholesterol 84 > [...] MD LAB - CHEMISTRY CHELI [facility] [address] [place] [address] * HEPATITIS C ANTIBODY (05/15/2011 3:[address] [place]) Hepatitis C Virus Antibody <0.1 0.0 - [...] BLOOD SPECIMEN / Unknown 05/15/2011 3:[address] [place] 05/15/2011 8:[address] [place] Narrative [facility] INSURANCE BILL - 05/16/2011 7:[address] [place] A courtesy copy of this report has been sent to [phone]. Resulting Agency Comment [facility] [address] ??[facility] [phone] Casper Smith MD LAB - CHEMISTRY CHELI [facility] INSURANCE BILL from Last 3 Months or Most Recently Relevant to Health Maintenance Administered Medications Care Teams Locker Room Clerk Relationship Specialty Start Date End Date Tim Altman MD PCP - General 10/18/10 [place] [address] [place] [phone] Orthopedic Surgery 05/02/11 [place] [address] [place] [phone] Rheumatology 08/20/11
--- OUTSIDE RECORDS SUMMARY | 2024-06-22 21:55 | XMS_ITS | Encounter Summary ---
Author Organization [facility] Address [address] [place] [address] [place] [address] Care Team Providers Care Black Topper Name Role Phone Tim Altman MD Primary Care Provider [phone] Vani Waldrop MD Unavailable [phone] Casper Smith MD Unavailable Unavailable Encounter Details Date Type Department Care Team (Latest Contact Info) Description 12/31/2023 10:49 AM CDT - 12/31/2023 11:59 PM T Hospital Encounter [facility] Imaging Services - Radiology [address] [place], [place] [id number] Discharge Disposition: Home or Self Care Social [...] 50 MG tabletIndications: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) ([facility]) Take 2 Tabs by mouth once [...] 600 MG tabletIndications: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) ([facility]),Fibromyalgia,Prima ry osteoarthritis of both knees,Insomnia,High risk [...] 2.5 MG tabletIndications: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) ([facility]),Fibromyalgia,Prima ry osteoarthritis of both knees,Insomnia,High risk medications (not anticoagulants) long-term use TAKE 8 TABS BY MOUTH EVERY 7 DAYS 40 Tab 4 02/15/2015 metoprolol tartrate IR (LOPRESSOR) 25 MG tablet Take 25 mg by mouth 2 times daily. omeprazole (PRILOSEC) 40 MG capsule Take 40 mg by mouth 2 times daily. 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) ([facility]) 40mg daily x 2 days, 30mg [...] organ or systems involvement (HCC) Z79.899: Other skilled nursing (current) drug therapy G47.01: Insomnia due to [...] organ or systems involvement (HCC) Z79.899: Other cofounder (current) drug therapy G47.01: Insomnia due to [...] elsewhere documented in this encounter Care Teams Black Topper Relationship Specialty Start Date End Date Tim Altman MD PCP - General 10/18/10 [place] [address] [place] [address] Orthopedic Surgery 05/02/11 [place] [address] [place] [phone] Rheumatology 08/20/11 documented as of this encounter
--- OUTSIDE RECORDS SUMMARY | 2024-06-22 21:55 | XMS_ITS | Encounter Summary ---
Author Organization [facility] Address [address] [place] [address] [place] [address] Care Team Providers Care Conductor And Engineer Name Role Phone Tim Altman MD Primary Care Provider Vani Waldrop MD Unavailable [phone] Casper Smith MD Unavailable Unavailable Encounter Details Date Type Department Care Team (Latest Contact Info) Description 08/23/2020 11:37 AM AIRCRAFT DETAIL DRAFTSPERSON - 08/23/2020 11:59 PM [facility] Hospital Encounter [facility] Imaging Services - Radiology [address] [place] [phone] Casper Smith MD Discharge Disposition: Home or [...] azaTHIOprine (IMURAN) 50 MG tabletIndications: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) ([facility]) Take 2 Tabs by mouth once daily. [...] gabapentin (NEURONTIN) 600 MG tabletIndications: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) ([facility]),Fibromyalgia,Prima ry osteoarthritis of both knees,Insomnia,High risk medications [...] 11/02/2013 methotrexate 2.5 MG tabletIndications: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) ([facility]),Fibromyalgia,Prima ry osteoarthritis of both knees,Insomnia,High risk medications (not anticoagulants) long-term use TAKE 8 TABS BY MOUTH EVERY 7 DAYS 40 Tab 4 02/15/2015 metoprolol tartrate IR (LOPRESSOR) 25 MG tablet Take 25 mg by mouth 2 times daily. omeprazole (PRILOSEC) 40 MG capsule Take 40 mg by mouth 2 times daily. 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 *Reading Radiologist: Jonathon Abbott on 08/23/2020 at 2:29 PM Narrative 08/23/2020 2:29 PM AIRCRAFT DETAIL DRAFTSPERSON Right Knee 4 Views INDICATION: Rheumatoid arthritis, arthritis FINDINGS: ??February 06, 2020 comparison [id number] configuration of the medial femoral tibial compartment with varus deformity of the knee. The medial femoral condyle is subluxed centrally relative to the tibial plateau. Joint fluid volume is minimal. Loose bodies in the popliteal recess. Advanced patellofemoral arthrosis. Procedure Note Jonathon Abbott MD - 08/23/2020 Right Knee 4 Views INDICATION: Rheumatoid arthritis, arthritis FINDINGS: February 06, 2020 comparison [id number] configuration of the medial femoral tibial compartment [...] left documented in this encounter Care Teams Conductor And Engineer Relationship Specialty Start Date End Date Tim Altman MD PCP - General 10/18/10 [place] [address] [place] [address] Orthopedic Surgery 05/02/11 [place] [address] [place] [address] Rheumatology 08/20/11 documented as of this encounter
--- OUTSIDE RECORDS SUMMARY | 2024-06-22 21:55 | XMS_ITS | Encounter Summary ---
Author Organization [facility] Address [address] [place] [address] [place] [address] Care Team Providers Care Corporate Giving Manager Name Role Phone Tim Altman MD Primary Care Provider [phone] Vani Waldrop MD Unavailable [phone] Casper Smith MD Unavailable Unavailable Reason for Visit * Reason Onset Date Comments Follow-up 04/06/2014 Encounter Details Date Type Department Care Team (Late st Contact Info) Description 04/06/2014 Telephone [facility] Medical [facility] - Family Medicine [address] [place] [id number] Casper Smith MD Follow-up Social History Tobacco [...] is calling back for the ph# to [facility] , she said the ph cut off and she did not get it documented in this encounter Plan of Treatment Not on file documented as of this encounter Visit Diagnoses Not on filedocumented in this encounter Care Teams Corporate Giving Manager Relationship Specialty Start Date End Date Tim Altman MD PCP - General 10/18/10 [place] [address] [place] [phone] Orthopedic Surgery 05/02/11 [place] [address] [place] [phone] Rheumatology 08/20/11 documented as of this encounter
--- OUTSIDE RECORDS SUMMARY | 2024-06-22 21:55 | XMS_ITS | Encounter Summary ---
Author Organization [facility] Address [address] [place] [address] [place] [address] Care Team Providers Care Scientific Software Engineer Name Role Phone Tim Altman MD Primary Care Provider [phone] Vani Waldrop MD Unavailable [phone] Casper Smiht MD Unavailable Unavailable Reason for Visit * Reason Onset Date Comments MEDICATION REFILL 05/31/2014 Encounter Details Date Type Department Care Team (Late st Contact Info) Description 05/31/2014 Refill [facility] - Rheumatology [address] [place] [address] Casper Smith MD MEDICATION REFILL Social History [...] on filedocumented in this encounter Care Teams Scientific Software Engineer Relationship Specialty Start Date End Date Tim Altman MD PCP - General 10/18/10 [place] [address] [place] [phone] Orthopedic Surgery 05/02/11 [place] [address] [address] Rheumatology 08/20/11 documented as of this encounter
--- OUTSIDE RECORDS SUMMARY | 2024-06-22 21:55 | XMS_ITS | Encounter Summary ---
Author Organization [facility] Address [address] [place] [address] [place] [address] Care Team Providers Care Surveillance Analyst Name Role Phone Tim Altman MD Primary Care Provider Vani Waldrop MD Unavailable [phone] Casper Smith MD Unavailable Unavailable Encounter Details Date Type Department Care Team (Latest Contact Info) Description 02/06/2020 11:01 AM CDT Hospital Encounter [facility] Imaging Services - Radiology [address] [place] [address] Casper Smith MD Discharge Disposition: Home or [...] azaTHIOprine (IMURAN) 50 MG tabletIndications: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) ([facility]) Take 2 Tabs by [...] gabapentin (NEURONTIN) 600 MG tabletIndications: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) ([facility]),Fibromyalgia,Prima ry osteoarthritis of both knees,Insomnia,High risk [...] 11/02/2013 methotrexate 2.5 MG tabletIndications: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) ([facility]),Fibromyalgia,Prima ry osteoarthritis of both knees,Insomnia,High risk medications (not anticoagulants) long-term use TAKE 8 TABS BY MOUTH EVERY 7 DAYS 40 Tab 4 02/15/2015 metoprolol tartrate IR (LOPRESSOR) 25 MG tablet Take 25 mg by mouth 2 times daily. omeprazole (PRILOSEC) 40 MG capsule Take 40 mg by mouth 2 times daily. 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) ([facility]) 40mg daily x 2 days, 30mg [...] unspecified documented in this encounter Care Teams Surveillance Analyst Relationship Specialty Start Date End Date Tim Altman MD PCP - General 10/18/10 [place] [address] [place] [address] Orthopedic Surgery 05/02/11 [place] [address] [place] [address] Rheumatology 08/20/11 documented as of this encounter
--- OUTSIDE RECORDS SUMMARY | 2024-06-22 21:55 | XMS_ITS | Encounter Summary ---
Author Organization [facility] Address [address] [place] [address] [place] [address] Care Team Providers Care Glass Deposition Tender Name Role Phone Tim Altman MD Primary Care Provider [phone] Vani Waldrop MD Unavailable [phone] Casper Smith MD Unavailable Unavailable Reason for Visit * Reason Comments Refill Request Encounter Details Date Type Department Care Team (Late st Contact Info) Description 12/14/2014 Refill [facility] - Rheumatology [address] [place] [address] Casper Smith MD Refill Request Social History [...] on filedocumented in this encounter Care Teams Glass Deposition Tender Relationship Specialty Start Date End Date Tim Altman MD PCP - General 10/18/10 [place] [address] [place] [address] Orthopedic Surgery 05/02/11 [place] [address] [place] [address] Rheumatology 08/20/11 documented as of this encounter
--- OUTSIDE RECORDS SUMMARY | 2024-06-22 21:55 | XMS_ITS | Clinical Summary ---
Author Organization [facility] Address [facility] [place] [address] Care Team Providers Care Candy Supervisor Name Role Phone Tim Altman MD Primary Care Provider Vani Waldrop MD Unavailable [phone] Casper Smith MD Unavailable Unavailable Source Comments [facility],non-owned Affiliates and Associated Physician Practices is amultiple site organization consisting of ambulatory clinics and hospital sitesin [place] and [place]. This disclosure is being madepursuant to the Care Everywhere program and may not contain all information available regarding this patient. Last updated 18.[facility] Allergies Active Allergy Reactions Criticality Noted Date [...] azaTHIOprine (IMURAN) 50 MG tabletIndications:Rh eumatoid arthritis(714.0) ([facility]) Take 2 Tabs by mouth once [...] predniSONE (DELTASONE) 20 MG tabletIndications:Rh eumatoid arthritis(714.0) ([facility]) 40mg daily x 2 days, 30mg [...] Active methotrexate 2.5 MG tabletIndications:Rh eumatoid arthritis(714.0) ([facility]),Fibromyalgia,P rimary osteoarthritis of both knees,Insomnia,High risk medications (not anticoagulants) long-term use TAKE 8 TABS BY MOUTH EVERY 7 DAYS 40 Tab 4 02/15/2015 Active gabapentin (NEURONTIN) 600 MG tabletIndications:Rh eumatoid arthritis(714.0) ([facility]),Fibromyalgia,P rimary osteoarthritis of both knees,Insomnia,High risk [...] 1954 COVID-19 VACCINE (#1) 08/15/1959 PNEUMOCOCCAL VACCINE 50+ (1 of 2 - PCV) 1960 DTAP/TDAP/TD [...] HEPATITIS C ANTIBODY Routine 05/15/2011 3:16 PM SPA DIRECTOR/FINANCE High risk medications (not anticoagulants) long-term use from Last 3 Months or Most Recently Relevant to Health Maintenance Results * DEXA BONE DENSITY 2 SITES (11/23/2014) Anatomical Region Laterality Modality Other Casper Smith MD DEXA ORDERABLES * (ABNORMAL) LIPID PROFILE W TCHOL/HDL (PO REF LAB) (09/30/2013 8:00 PM CDT) Cholesterol 230(H) 125 - 200 mg/dL [facility] Comment: Test Performed at: [facility] [address] ??[id number] MUKUND GILES DO,MPH HDL Cholesterol 84 > [...] Smith MD LAB - CHEMISTRY CHELI SAAB [facility] Organization Address City/State/ZIP Co de Phone Number [facility] [address] [place] [address] * HEPATITIS C ANTIBODY (05/15/2011 3:16 PM SPA DIRECTOR/FINANCE) Hepatitis C Virus Antibody <0.1 0.0 - [...] BLOOD SPECIMEN / Unknown 05/15/2011 3:16 PM SPA DIRECTOR/FINANCE 05/15/2011 8:51 PM SPA DIRECTOR/FINANCE Narrative [facility] INSURANCE BILL - 05/16/2011 7:24 AM SPA DIRECTOR/FINANCE A courtesy copy of this report has been sent to [phone]. Resulting Agency Comment [facility] [place] [address] [facility] ??[place] [phone] Casper Smith MD LAB - CHEMISTRY ORDE RABLES [facility] INSURANCE BILL from Last 3 Months or Most Recently Relevant to Health Maintenance Care Teams Candy Supervisor Relationship Specialty Start Date End Date Tim Altman MD PCP - General 10/18/10 [place] [address] [place] [address] Orthopedic Surgery 05/02/11 [place] [address] [place] [address] Rheumatology 08/20/11
--- OUTSIDE RECORDS SUMMARY | 2024-06-22 21:55 | XMS_ITS | Encounter Summary ---
Author Organization [facility] Address [address] [place] [address] [place] [address] Care Team Providers Care Commuter Pilot Name Role Phone Tim Altman MD Primary Care Provider Vani Waldrop MD Unavailable [phone] Casper Smith MD Unavailable Unavailable Encounter Details Date Type Department Care Team (Latest Contact Info) Description 02/06/2020 11:00 AM CDT Hospital Encounter [facility] Imaging Services - Radiology [address] [place] [address] Casper Smith MD Discharge Disposition: Home or [...] azaTHIOprine (IMURAN) 50 MG tabletIndications: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) ([facility]) Take 2 Tabs by mouth once daily. [...] gabapentin (NEURONTIN) 600 MG tabletIndications: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) ([facility]),Fibromyalgia,Prima ry osteoarthritis of both knees,Insomnia,High risk medications [...] 11/02/2013 methotrexate 2.5 MG tabletIndications: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) ([facility]),Fibromyalgia,Prima ry osteoarthritis of both knees,Insomnia,High risk medications (not anticoagulants) long-term use TAKE 8 TABS BY MOUTH EVERY 7 DAYS 40 Tab 4 02/15/2015 metoprolol tartrate IR (LOPRESSOR) 25 MG tablet Take 25 mg by mouth 2 times daily. omeprazole (PRILOSEC) 40 MG capsule Take 40 mg by mouth 2 times daily. 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) ([facility]) 40mg daily x 2 days, 30mg x [...] CDT EXAM: XR KNEE BILAT 2VW OR LESS*[id number] INDICATION: Pain in left knee, pain in [...] 02/06/2020 EXAM: XR KNEE BILAT 2VW OR LESS*[id number] INDICATION: Pain in left knee, pain in [...] chronicity documented in this encounter Care Teams Commuter Pilot Relationship Specialty Start Date End Date Tim Altman MD PCP - General 10/18/10 [place] [address] [address] Orthopedic Surgery 05/02/11 [place] [address] [place] [address] Rheumatology 08/20/11 documented as of this encounter
--- OUTSIDE RECORDS SUMMARY | 2024-06-22 21:55 | XMS_ITS | Encounter Summary ---
Author Organization [facility] Address [facility] [place] [address] Care Team Providers Care Engine Cowling Installer Name Role Phone Tim Altman MD Primary Care Provider [phone] Vani Waldrop MD Unavailable [phone] Casper Smith MD Unavailable Unavailable Reason for Visit * Reason Comments Upper Extremity Problem Encounter Details Date Type Department Care Team (Late st Contact Info) Description 02/09/2014 Procedure visit [facility] - Rheumatology [address] [place] [address] Casper Smith MD Hand pain, right Social [...] with a 438 probe at 18mHz or [employer] M7 with a L14-6s probe at 14 [...] the diagnostic impression are recorded by the accountant cost under the direction of the attending physician [...] MD directly to discuss this case at [phone] or via [employer] messaging at: [employer]. documented in this encounter Plan of Treatment [...] with a 438 probe at 18mHz or [employer] M7 with a L14-6s probe at 14 [...] the diagnostic impression are recorded by the accountant cost under the direction of the attending physician [...] MD directly to discuss this case at [phone] or via [employer] messaging at: [employer]. Casper Smith MD US ORDERABLES documented in this encounter Visit Diagnoses Diagnosis Hand pain, right- Primary Pain in limb documented in this encounter Care Teams Engine Cowling Installer Relationship Specialty Start Date End Date Tim Altman MD PCP - General 10/18/10 [place] [address] [place] [address] Orthopedic Surgery 05/02/11 [place] [address] [place] [address] Rheumatology 08/20/11 documented as of this encounter
--- OUTSIDE RECORDS SUMMARY | 2024-06-22 21:55 | XMS_ITS | Encounter Summary ---
Author Organization [facility] Address [address] [place] [address] [place] [address] Care Team Providers Care State Archivist Name Role Phone Tim Altman MD Primary Care Provider [phone] Vani Waldrop MD Unavailable [phone] Casper Smith MD Unavailable Unavailable Reason for Visit * Reason Onset Date Comments Medication Issue 04/05/2014 Encounter Details Date Type Department Care Team (Late st Contact Info) Description 04/05/2014 Telephone [facility] - Rheumatology [address] [place] [address] Casper Smith MD Medication Issue Social History [...] Humira & gave her the # to [facility] so shecan set up her [...] on filedocumented in this encounter Care Teams State Archivist Relationship Specialty Start Date End Date Tim Altman MD PCP - General 10/18/10 [place] [address] [place] [address] Orthopedic Surgery 05/02/11 [place] [address] [place] [address] Rheumatology 08/20/11 documented as of this encounter
--- OUTSIDE RECORDS SUMMARY | 2024-06-22 21:55 | XMS_ITS | Encounter Summary ---
Author Organization [facility] Address [address] [place] [address] [place] [address] Care Team Providers Care Jointer Machine Name Role Phone Tim Altman MD Primary Care Provider [phone] Vani Waldrop MD Unavailable [phone] Casper Smith MD Unavailable Unavailable Reason for Visit * Reason Comments Refill Request Encounter Details Date Type Department Care Team (Late st Contact Info) Description 01/19/2015 Refill [facility] - Rheumatology [address] [place] [address] Casper Smith MD Refill Request Social History [...] on filedocumented in this encounter Care Teams Jointer Machine Relationship Specialty Start Date End Date Tim Altman MD PCP - General 10/18/10 [place] [address] [place] [address] Orthopedic Surgery 05/02/11 [place] [address] [place] [address] Rheumatology 08/20/11 documented as of this encounter
--- OUTSIDE RECORDS SUMMARY | 2024-06-22 21:55 | XMS_ITS | Encounter Summary ---
Author Organization [facility] Address [address] [place] [address] [place] [address] Care Team Providers Care Biomedical Engineer Name Role Phone Tim Altman MD Primary Care Provider Vani Waldrop MD Unavailable [phone] Casper Smith MD Unavailable Unavailable Encounter Details Date Type Department Care Team (Latest Contact Info) Description 02/06/2020 11:02 AM CDT - 02/06/2020 11:59 PM T Hospital Encounter [facility] Imaging Services - Radiology [address] [place] [address] Casper Smith MD Discharge Disposition: Home or [...] azaTHIOprine (IMURAN) 50 MG tabletIndications: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) ([facility]) Take 2 Tabs by mouth [...] gabapentin (NEURONTIN) 600 MG tabletIndications: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) ([facility]),Fibromyalgia,Prima ry osteoarthritis of both knees,Insomnia,High [...] 11/02/2013 methotrexate 2.5 MG tabletIndications: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) ([facility]),Fibromyalgia,Prima ry osteoarthritis of both knees,Insomnia,High risk medications (not anticoagulants) long-term use TAKE 8 TABS BY MOUTH EVERY 7 DAYS 40 Tab 4 02/15/2015 metoprolol tartrate IR (LOPRESSOR) 25 MG tablet Take 25 mg by mouth 2 times daily. omeprazole (PRILOSEC) 40 MG capsule Take 40 mg by mouth 2 times daily. 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) ([facility]) 40mg daily x 2 days, [...] present documented in this encounter Care Teams Biomedical Engineer Relationship Specialty Start Date End Date Tim Altman MD PCP - General 10/18/10 [place] [address] [place] [address] Orthopedic Surgery 05/02/11 [place] [address] [place] [address] Rheumatology 08/20/11 documented as of this encounter
--- OUTSIDE RECORDS SUMMARY | 2024-06-22 21:55 | XMS_ITS | Encounter Summary ---
Author Organization [facility] Address [address] [place], [place] [address] [address] Care Team Providers Care Title Closer Name Role Phone Tim Altman MD Primary Care Provider [phone] Vani Waldrop MD Unavailable [phone] Casper Smith MD Unavailable Unavailable Reason for Visit * Reason Comments Fibromyalgia Encounter Details Date Type Department Care Team (Latest Contact Info) Description 02/15/2015 10:15 AM CDT Office Visit [facility] Medical [facility] - Rheumatology [address] [place] [address] Casper Smith MD Rheumatoid arthritis (Primary Dx); [...] 02/16/2015 8:35 AM CDTQuick Note: Informed Via [employer] * Casper Smith MD - 02/15/2015 10:56 [...] crutches, prosthesis, splint/brace, walker and wheelchair HEENT: [place] , cerumen , anisocoria, retinal, hemorrhage, thrush, [...] nodes, abn 1st CMC,Flexor tend, Finger Deformity: [place] neck/ Boutonniere/ Mallet finger, Ulnar deviation, Dupuytren's, [...] 1:42 PM CDT Narrative Resulting Agency Comment [facility] [address] ??[place] [phone] Casper Smith MD LAB - CHEMISTRY CHELI [...] 1:42 PM CDT Narrative Resulting Agency Comment [facility] [address] ??[place] [phone] Casper Smith MD LAB - CHEMISTRY CHELI [...] 1:42 PM CDT Narrative Resulting Agency Comment [facility] [address] ??[place] [phone] Casper Smith MD LAB - HEMATOLOGY ORD ERABLES [facility] Organization Address City/State/ZIP Co de Phone Number [facility] INSURANCE BILL documented in this encounter Visit Diagnoses Diagnosis Rheumatoid arthritis- Primary Fibromyalgia Mylagia and myositis, unspecified Primary osteoarthritis of both knees Primary localized osteoarthrosis, lower leg Insomnia Insomnia, unspecified High risk medications (not anticoagulants) long-term use Encounter for long-term (current) use of other medications documented in this encounter Care Teams Title Closer Relationship Specialty Start Date End Date Tim Altman MD PCP - General 10/18/10 [place] [address] [place] [address] Orthopedic Surgery 05/02/11 [place] [address] [place] [address] Rheumatology 08/20/11 documented as of this encounter
--- OUTSIDE RECORDS SUMMARY | 2024-06-22 21:55 | XMS_ITS | Encounter Summary ---
Author Organization [facility] Address [address] [place] [address] [place] [address] Care Team Providers Care Aerosol Supervisor Name Role Phone Tim Altman MD Primary Care Provider [phone] Vani Waldrop MD Unavailable [phone] Casper Smith MD Unavailable Unavailable Reason for Visit * Reason Comments Rheumatoid Arthritis follow up Upper Extremity Problem left finger pain Encounter Details Date Type Department Care Team (Latest Contact Info) Description 06/22/2014 10:15 AM BUILDING ANALYST/SUPERVISOR Office Visit [facility] - Rheumatology [address] [place], [place] [phone] Casper Smith MD Fibromyalgia (Primary Dx); Rheumatoid [...] Comments Blood Pressure 122/68 06/22/2014 10:47 AM BUILDING ANALYST/SUPERVISOR Pulse 80 06/22/2014 10:47 AM BUILDING ANALYST/SUPERVISOR Temperature - - Respiratory Rate - - Oxygen Saturation - - Inhaled Oxygen Concentration - - Weight 100.4 kg (221 lb 6.4 oz) 015 10:47 AM BUILDING ANALYST/SUPERVISOR Height 162.6 cm (5' 4 ) 06/22/2014 10:4 7 AM BUILDING ANALYST/SUPERVISOR Body Mass Index 38 06/22/2014 10:47 AM BUILDING ANALYST/SUPERVISOR documented in this encounter Progress Notes * Yeny Oro MA - 06/26/2014 4:27 PM CSTQuick Note: Labs are OK No change in plan needed Call us or send a [employer] Message with any problems DING ANALYST/SUPERVISOR * Casper Smith MD - 06/22/2014 11:00 [...] crutches, prosthesis, splint/brace, walker and wheelchair HEENT: [place] , cerumen , anisocoria, retinal, hemorrhage, thrush, [...] nodes, abn 1st CMC,Flexor tend, Finger Deformity: [place] neck/ Boutonniere/ Mallet finger, Ulnar deviation, Dupuytren's, [...] COMPREHENSIVE METABOLIC PANEL ??? C-REACTIVE PROTEIN ??? [place] INJECT TENDON SHEATH/LIGAMENT ??? methylPREDNISolone Acetate (DEPO-MEDROL) [...] Dr Cathie Wilkerson NeuroOpth, Dr Reaves Neurology DING ANALYST/SUPERVISOR documented in this encounter Plan of Treatment [...] interference in this assay. Test Performed at: [facility] [address] [place], [place] ??[phone] MUKUND GILES DO,MPH Blood specimen (specimen) BLOOD SPECIMEN / Unknown 06/22/2014 06/23/2014 5:05 AM BUILDING ANALYST/SUPERVISOR Casper Smith MD LAB - CHEMISTRY CHELI SAAB Performing Organization Address City/State/ZIP Co nc Phone Number [facility] [address] [place] [address] * (ABNORMAL) COMPREHENSIVE METABOLIC PANEL (06/22/2014) Glucose 64(L) 65 - 99 mg/dL [facility] Comment: ? Fasting reference interval BUN 14 7 - 25 mg/dL [facility] Creatinine 0.76 0.50 - 1.05 mg/dL [facility] Comment: For patients >49 years of age, the reference limit for Creatinine is approximately 13% higher for people identified as -Iraqi. eGFR by MDRD 86 > OR = [...] 29 U/L [facility] Comment: Test Performed at: [email or web address] [address] [place] [address] ??[phone] MUKUND GILES DO,MPH Blood specimen (specimen) BLOOD SPECIMEN / Unknown 06/22/2014 06/23/2014 5:05 AM BUILDING ANALYST/SUPERVISOR Casper Smith MD LAB - CHEMISTRY ORDE RABLES [facility] [address] [place] [address] * (ABNORMAL) CBC W AUTO DIFFERENTIAL (06/22/2014) [...] 0.5 % [facility] Comment: Test Performed at: [facility] ??[phone] MUKUND GILES DO,MPH Blood specimen (specimen) BLOOD SPECIMEN / Unknown 06/22/2014 06/23/2014 5:05 AM BUILDING ANALYST/SUPERVISOR Casper Smith MD LAB - HEMATOLOGY ORD ERABLES Performing Organization Address [facility] Co de Phone Number [facility] [address] [place] [address] documented in this encounter Visit Diagnoses Diagnosis [...] comments documented in this encounter Care Teams Aerosol Supervisor Relationship Specialty Start Date End Date Tim Altman MD PCP - General 10/18/10 [place] [address] [place] [address] Orthopedic Surgery 05/02/11 [place] [address] [place] [address] Rheumatology 08/20/11 documented as of this encounter
--- OUTSIDE RECORDS SUMMARY | 2024-06-22 21:55 | XMS_ITS | Encounter Summary ---
Author Organization [facility] Address [address] [place] [address] [place] [address] Care Team Providers Care Inspector And Tester Name Role Phone Tim Altman MD Primary Care Provider [phone] Vain Waldrop MD Unavailable [phone] Casper Smith MD Unavailable Unavailable Reason for Visit * Reason Onset Date Comments MEDICATION REFILL 04/26/2014 Encounter Details Date Type Department Care Team (Late st Contact Info) Description 04/26/2014 Telephone [facility] Medical Group - Family Medicine [address] [place] [phone] Casper Smith MD MEDICATION REFILL Social History [...] pt to get medicine from spec pharmacy [employer] * Telephone Encounter - Hannah Edmondson - 04/26/2014 12:55 PM CST lmor to call [employer] * Telephone Encounter - Yeny Oro MA - 04/26/2014 12:32 PM CST Not authorized to get from local pharmacy. Pts Specialty pharmacy is [facility]. That's where her co-pay assistance card is set up. She needs to call them at to set up home delivery. [employer] * Telephone Encounter - Hannah Edmondson - 04/26/2014 9:45 AM CST Pt needs rx for humira 40 mg q 2 wks sent [facility] , not on med sheet [employer] documented in this encounter Plan of Treatment Not on file documented as of this encounter Visit Diagnoses Not on filedocumented in this encounter Care Teams Inspector And Tester Relationship Specialty Start Date End Date Tim Altman MD PCP - General 10/18/10 [place] [address] [place] [address] Orthopedic Surgery 05/02/11 [place] [address] [place] [address] Rheumatology 08/20/11 documented as of this encounter
--- OUTSIDE RECORDS SUMMARY | 2024-06-22 21:55 | XMS_ITS | Patient Health Summary ---
Author Organization [facility] Address [address] [place] [address] Care Team Providers Care Buhr Dresser Name Role Phone Tim Altman MD Primary Care Provider Vani Waldrop MD Unavailable [phone] Casper Smith MD Unavailable Unavailable Note from [facility],non-owned Affiliates and Associated Physician Practices is amultiple site organization consisting of ambulatory clinics and hospital sitesin [place], [place], [place] and [place]. This disclosure is being madepursuant to the Care Everywhere program and may not contain all information available regarding this patient. Last updated 18.[facility] Allergies * Amitriptyline * Codeine * Rosuvastatin [...] C-REACTIVE PROTEIN(Performed 10/19/2014) Performed for Rheumatoid arthritis(714.0) (FORMERLY [facility]) * COMPREHENSIVE METABOLIC PANEL(Performed 10/19/2014) Performed for [...] PROTEIN(Performed 07/05/2013) Performed for PMR (polymyalgia rheumatica) ([facility]LY [facility]) * RHEUMATOID FACTOR BLOOD QUANTITATIVE(Performed 07/05/2013) Performed [...] 03/28/2013) Performed for Fibromyalgia, PMR (polymyalgia rheumatica) ([facility]LY [facility]) * CBC W AUTO DIFFERENTIAL(Performed 03/28/2013) Performed for Fibromyalgia, PMR (polymyalgia rheumatica) ([facility]LY [facility]) * LAB RESULTS ORDER(Performed 03/02/2013) * COMPREHENSIVE METABOLIC PANEL(Performed 02/28/2013) Performed for High risk medications (not anticoagulants) long-term use * CBC W AUTO DIFFERENTIAL(Performed 02/28/2013) Performed for High risk medications (not anticoagulants) long-term use * C-REACTIVE PROTEIN(Performed 02/28/2013) Performed for PMR (polymyalgia rheumatica) ([facility]LY [facility]) * US EXTREMITY NON VASCULAR RIGHT(Performed 11/16/2012) [...] PROTEIN(Performed 06/16/2012) Performed for PMR (polymyalgia rheumatica) ([facility]LY [facility]) * C-REACTIVE PROTEIN(Performed 12/16/2011) Performed for PMR (polymyalgia rheumatica) ([facility]) * HEPATIC FUNCTION PANEL(Performed 12/16/2011) Performed for [...] TSH(Performed 10/18/2010) Performed for PMR (polymyalgia rheumatica) ([facility]) * RHEUMATOID FACTOR BLOOD QUANTITATIVE(Performed 10/18/2010) Performed for PMR (polymyalgia rheumatica) (HCC) * C-REACTIVE PROTEIN(Performed 10/18/2010) Performed for PMR (polymyalgia rheumatica) (HCC) * COMPREHENSIVE METABOLIC PANEL(Performed 10/18/2010) Performed for PMR (polymyalgia rheumatica) (HCC) * CBC W AUTO DIFFERENTIAL(Performed 10/18/2010) Performed for PMR (polymyalgia rheumatica) (FORM[facility]LY [facility]) Results * XR KNEE 1 OR 2 [...] multiple sites without organ or systems involvement (FORMERLY [facility]) Z79.899: Other nursing home (current) drug therapy G47.01: Insomnia due to [...] multiple sites without organ or systems involvement ([facility]) Z79.899: Other nursing home (current) drug therapy G47.01: Insomnia due to [...] RIGHT 4VW OR MORE (08/23/2020 11:57 AM CLINICAL PHARMACIST) Anatomical Region Laterality Modality Lower Extremity Radiographic Irma ging 08/23/2020 2:28 PM CLINICAL PHARMACIST Impressions 08/23/2020 2:29 PM CLINICAL PHARMACIST Grade 4 osteoarthrosis with popliteal recess loose bodies. *Reading Radiologist: Jonathon Abbott on 08/23/2020 at 2:29 PM Narrative 08/23/2020 2:29 PM CLINICAL PHARMACIST Right Knee 4 Views INDICATION: Rheumatoid arthritis, arthritis FINDINGS: ??February 06, 2020 comparison Dedd-tq-qpbh configuration of the medial femoral tibial compartment with varus deformity of the knee. The medial femoral condyle is subluxed centrally relative to the tibial plateau. Joint fluid volume is minimal. Loose bodies in the popliteal recess. Advanced patellofemoral arthrosis. Procedure Note Jonathon Abbott MD - 08/23/2020 Right Knee 4 Views INDICATION: Rheumatoid arthritis, arthritis FINDINGS: February 06, 2020 comparison Rmmb-bh-gmcg configuration of the medial femoral tibial compartment [...] CDT EXAM: XR KNEE BILAT 2VW OR LESS*[id number] INDICATION: Pain in left knee, pain in [...] 02/06/2020 EXAM: XR KNEE BILAT 2VW OR LESS*[id number] INDICATION: Pain in left knee, pain in [...] 1:42 PM CDT Narrative Resulting Agency Comment [facility] [id number] [facility] ??[facility] [id number] Casper Smith MD [facility] Organization Address City/State/ZIP Co de [...] 1:42 PM CDT Narrative Resulting Agency Comment [facility] [address] ??[place] [id number] Casper Smith MD LAB - HEMATOLOGY ORD [...] 1:42 PM CDT Narrative Resulting Agency Comment [facility] [address] ??[place] [id number] Casper Smith MD LAB - CHEMISTRY CHELI [...] with a 438 probe at 18mHz or baixing.comray M7 with a L14-6s probe at 14 [...] the diagnostic impression are recorded by the pharmacy laboratory technician under the direction of the attending [...] MD directly to discuss this case at [phone] or via [employer] Technologiesaging at: [employer]ookal. Casper Smith MD US ORDERABLES * PO REF LAB-REFLEX TEST IN [facility] (09/30/2013 8:00 PM CDT) Reflex [facility] Comment: OUR RECORDS INDICATE THAT YOU HAVE ORDERED LIPID PANEL (REFL) ORDER CODE 77864. ??THIS IS A REFLEX-SPECIFIC ORDER CODE. HOWEVER, ONLY THE INITIAL TEST WAS PERFORMED, BECAUSE WE DO NOT HAVE A REFLEX TESTING AUTHORIZATION FORM ON FILE FOR YOU. ??TO PERFORM A REFLEX TEST WE NEED YOU TO SIGN AN AUTHORIZATION FORM SPECIFYING (A) THE REFLEXIVE TEST AND (B) THE RESULTS THAT WILL TRIGGER THE PERFORMANCE OF THE REFLEX TEST. ??PLEASE CONTACT THE GAS UTILITY WORKER AT [facility] IF YOU WOULD LIKE ADDITIONAL TESTING DONE OR CONTACT YOUR CONFIGURATION MANAGEMENT ADVISOR TO OBTAIN A COPY OF THE REFLEXIVE TESTING AUTHORIZATION FORM. ? IF YOU WOULD PREFER A NON-REFLEXIVE VERSION OF LIPID PANEL (REFL), PLEASE ORDER THE NON REFLEX LIPID PANEL, ORDER CODE 7600. NO COLLECTION DATE RECEIVED. WE HAVE USED THE DATE THE SPECIMEN WAS RECEIVED BY THIS LABORATORY THE COLLECTION DATE. IF THIS IS INCORRECT, PLEASE CONTACT CLIENT SERVICES. PHONE NUMBER: [phone] Test Performed at: [facility] [address] ??[address] MUKUND GILES DO,MPH 09/30/2013 4:2 4 AM CDT Casper Smith MD LAB - CHEMISTRY CHELI SAAB [facility] Organization Address City/State/ZIP Co de Phone Number [facility] [address] [place] [address] * (ABNORMAL) LIPID PROFILE W TCHOL/HDL (PO REF LAB) (09/30/2013 8:00 PM CDT) Cholesterol 230(H) 125 - 200 mg/dL [facility] Comment: Test Performed at: [facility] [address] ??[address] MUKUND GILES DO,MPH HDL Cholesterol 84 > [...] - CHEMISTRY CHELI SAAB Performing Organization Address [facility] de Phone Number [facility] [address] [place] [address] * RHEUMATOID FACTOR BLOOD QUANTITATIVE (07/05/2013 3:00 PM CLINICAL PHARMACIST) Only the most recent of2 resultswithin the time period is included. [facility] Rheumatoid Factor 12 <14 IU/mL [facility] Comment: Test Performed at: [facility] [address] ??[address] MUKUND GILES DO,MPH Blood specimen (specimen) BLOOD SPECIMEN / Unknown 07/05/2013 4:29 AM CLINICAL PHARMACIST Casper Smith MD LAB - CHEMISTRY CHELI SAAB Performing Organization Address [facility] Co de Phone Number [facility] [address] [place] [address] * CYCLIC CITRUL PEPTIDE AB IGG (CCP) (07/05/2013 3:00 PM CLINICAL PHARMACIST) [facility] Cyclic Citrullinated Peptide Antibody IgG <16 UNITS [facility] Comment: Reference Range Negative: ?<20 Weak Positive: ? 20-39 Moderate Positive: ?? 40-59 Strong Positive: ? >59 Test Performed at: [facility] [address] [place], [place] ??[address] MUKUND GILES DO,MPH 07/05/2013 4:2 9 AM CLINICAL PHARMACIST Casper Smith MD LAB - CHEMISTRY CHELI SAAB [facility] Organization Address City/State/ZIP Co de Phone Number [facility] [address] [place] [address] * XR KNEE 1 OR 2 VW RIGHT (07/04/2013 4:02 PM CLINICAL PHARMACIST) Anatomical Region Laterality Modality Lower Extremity Other Narrative 07/04/2013 4:02 PM CLINICAL PHARMACIST Casper Smith MD ? 07/04/2013 ??4:02 PM [...] the diagnostic impression are recorded by the pharmacy laboratory technician under the direction of the attending [...] MD directly to discuss this case at [phone] or via [employer] messaging at: [employer]ook[employer]. Procedure Note Casper Smith MD - 11/16/2012 4:32 PM CDT Bilateral Hand Ultrasound Protocol: Complete Bilateral Hand Study for RA Activity and Median nerve dimensionsusing MyLab5 with a 438 probe at 18mHz or [facility] M7 with a L14-6s probeat 14 [...] effect the diagnostic impression arerecorded by the pharmacy laboratory technician under the direction of the attendingphysician [...] MD directly to discuss this case at [phone] [employer] messaging at: [employer]ookal. Casper Smith MD ORDERABLES * ACETYLCHOLINE RECEPTOR [...] research purposes ? only by the assay's ship officer. ??The performance ? characteristics of this product [...] PM CDT Narrative Resulting Agency Comment [facility] [address] ??[facility] [id number] Casper Smith MD LAB - SEROLOGY ORDER [...] PM CDT Narrative Resulting Agency Comment [facility] [address] ??[facility] [id number] Casper Smith MD LAB - SEROLOGY ORDER [...] 40 U/L [facility] Comment: Test Performed at: [facility] [address] ??[address] MUKUND GILES DO,MPH Blood specimen (specimen) BLOOD SPECIMEN / Unknown 12/16/2011 12/17/2011 4:19 AM CDT Casper Smith MD LAB - CHEMISTRY ORDE [facility] Performing Organization Address City/[facility]/ZIP Co de Phone Number [facility] [address] [place] [address] * SED RATE WESTERGREN AUTO (05/15/2011 3:16 PM CLINICAL PHARMACIST) Only the most recent of2 resultswithin the time period is included. Erythrocyte Sedimentation Rate Westergren 4 0 - 56 mm/hr [facility] INSURANCE BILL Blood specimen (specimen) BLOOD SPECIMEN / Unknown 05/15/2011 3:16 PM CLINICAL PHARMACIST 05/15/2011 8:51 PM CLINICAL PHARMACIST Narrative [facility] INSURANCE BILL - 05/16/2011 7:24 AM CLINICAL PHARMACIST A courtesy copy of this report has been sent to [phone]. Resulting Agency Comment [facility] [address] ??[facility] [id number] Casper Smith MD LAB - HEMATOLOGY INDIGO MELARA Performing Organization Address [facility] de Phone Number [facility] INSURANCE BILL * HEPATITIS B SURFACE ANTIGEN (05/15/2011 3:16 PM CLINICAL PHARMACIST) Hepatitis B Virus Surface Antigen Negative Negative [facility] INSURANCE BILL Blood specimen (specimen) BLOOD SPECIMEN / Unknown 05/15/2011 3:16 PM CLINICAL PHARMACIST 05/15/2011 8:51 PM CLINICAL PHARMACIST Narrative [facility] INSURANCE BILL - 05/16/2011 7:24 AM CLINICAL PHARMACIST A courtesy copy of this report has been sent to [phone]. Resulting Agency Comment [facility] [address] ??[facility] [phone] Casper Smith MD LAB - CHEMISTRY CHELI SAAB Performing Organization Address [facility] de Phone Number [facility] INSURANCE BILL * HEPATITIS C ANTIBODY (05/15/2011 3:16 PM CLINICAL PHARMACIST) Hepatitis C Virus Antibody <0.1 0.0 - [...] BLOOD SPECIMEN / Unknown 05/15/2011 3:16 PM CLINICAL PHARMACIST 05/15/2011 8:51 PM CLINICAL PHARMACIST Narrative [facility] INSURANCE BILL - 05/16/2011 7:24 AM CLINICAL PHARMACIST A courtesy copy of this report has been sent to [phone]. Resulting Agency Comment [facility] [address] ??[facility] [phone] Casper Smith MD LAB - CHEMISTRY CHELI [...] DJD in C3-C4 and C4-C5 Karly Snyder APPLE THINNER-EARLY MORNING DIAGNOSTIC IMAGIN G ORDERABLES * (ABNORMAL) CANDIDA [...] (Smooth) ? Histone ? Speckled ? Sm, FORWARD AIR CONTROLLER/AIR OFFICER, SCL-70, ??SLE,MCTD,Scleroderma,Sjogrens ? SS-A/SS-B ? Nucleolar ?SCL-70, PM-1/SCL ??High titers Scleroderma Poly- ? myositis/Scleroderma Overlap ? Centromere ?? Centromere ?PSS w/Crest syndrome variable ?? 10/18/2010 1:56 PM CDT 10/18/2010 9:12 PM CDT Narrative Resulting Agency Comment [facility] [place] [address] [facility] ??[facility] [id number] Casper Smith MD LAB - PATHOLOGY/CYTO LOGY ORDERABLES Performing Organization Address City/State/[facility] Co de Phone Number [facility] ACCOUNT BILL * ESTHELA BLOOD SCREEN W/REFLEX TITER (10/18/2010 1:56 PM CDT) ESTHELA See patterns [facility] ACCOUNT BILL Comment: ?Negative ?? <1:80 ?Borderline ??1:80 ?Positive ?? >1:80 BLOOD SPECIMEN / Unknown 10/18/2010 1:56 PM CDT 10/18/2010 9:12 PM CDT Narrative Resulting Agency Comment [facility] [place] [address] ??[facility] [id number] Casper Smith MD LAB - CHEMISTRY CHELI SAAB [facility] ACCOUNT BILL * TSH (10/18/2010 1:56 PM CDT) TSH 1.160 0.450 - 4.500 uIU/mL [facility] ACCOUNT BILL BLOOD SPECIMEN / Unknown 10/18/2010 1:56 PM CDT 10/18/2010 9:12 PM CDT Narrative Resulting Agency Comment [facility] [place] [address] ??[facility] [phone] Casper Smith MD LAB - CHEMISTRY CHELI SAAB [facility] ACCOUNT BILL Care Teams Buhr Dresser Relationship Specialty Start Date End Date Tim Altman MD PCP - General 10/18/10 [place] [address] [place] [address] Orthopedic Surgery 05/02/11 [place] [address] [place] [address] Rheumatology 08/20/11
--- OUTSIDE RECORDS SUMMARY | 2024-06-22 21:55 | XMS_ITS | Encounter Summary ---
Author Organization [facility] Address [address] [place] [address] [place] [address] Care Team Providers Care Release Of Information Clerk Name Role Phone Tim Altman MD Primary Care Provider [phone] Vani Waldrop MD Unavailable [phone] Casper Smith MD Unavailable Unavailable Reason for Visit * Reason Comments Refill Request Encounter Details Date Type Department Care Team (Late st Contact Info) Description 02/26/2014 Refill [facility] - Rheumatology [address] [place] [address] Casper Smith MD Refill Request Social History [...] on filedocumented in this encounter Care Teams Release Of Information Clerk Relationship Specialty Start Date End Date Tim Altman MD PCP - General 10/18/10 [place] [address] [place] [address] Orthopedic Surgery 05/02/11 [place] [address] [place] [address] Rheumatology 08/20/11 documented as of this encounter
--- OUTSIDE RECORDS SUMMARY | 2024-06-22 21:55 | XMS_ITS | Encounter Summary ---
Author Organization [facility] Address [address] [place] [address] [place] [address] Care Team Providers Care Cpa Tax Name Role Phone Tim Altman MD Primary Care Provider [phone] Vani Waldrop MD Unavailable [phone] Casper Smith MD Unavailable Unavailable Reason for Visit * Reason Onset Date Comments MEDICATION REFILL 10/19/2014 Encounter Details Date Type Department Care Team (Late st Contact Info) Description 10/19/2014 Refill [facility] - Rheumatology [address] [place] [address] Caspre Smith MD MEDICATION REFILL Social History Tobacco [...] on filedocumented in this encounter Care Teams Cpa Tax Relationship Specialty Start Date End Date Tim Altmna MD PCP - General 10/18/10 [place] [address] [place] [address] Orthopedic Surgery 05/02/11 [place] [address] [address] Rheumatology 08/20/11 documented as of this encounter
--- OUTSIDE RECORDS SUMMARY | 2024-06-22 21:55 | XMS_ITS | Encounter Summary ---
Author Organization [facility] Address [address] [place] [address] [place] [address] Care Team Providers Care Machine Repairer Maintenance Name Role Phone Tim Altman MD Primary Care Provider Vani Waldrop MD Unavailable [phone] Casper Smith MD Unavailable Unavailable Encounter Details [...] filedocumented in this encounter Care Teams Machine Repairer Maintenance Relationship Specialty Start Date End Date Tim Altman MD PCP - General 10/18/10 [place] [address] [place] [address] Orthopedic Surgery 05/02/11 [place] [address] [place] [address] Rheumatology 08/20/11 documented as of this encounter
--- OUTSIDE RECORDS SUMMARY | 2024-06-22 21:55 | XMS_ITS | Encounter Summary ---
Author Organization [facility] Address [address] [place] [address] [place] [address] Care Team Providers Care Eyeglass Lens Grinder Name Role Phone Tim Altman MD Primary Care Provider [phone] Vani Waldrop MD Unavailable [phone] Casper Smith MD Unavailable Unavailable Reason for Visit * Reason Comments Refill Request Encounter Details Date Type Department Care Team (Late st Contact Info) Description 08/01/2014 Refill [facility] - Rheumatology [address] [place] [address] Casper Smith MD Refill Request Social History [...] on filedocumented in this encounter Care Teams Eyeglass Lens Grinder Relationship Specialty Start Date End Date Tim Altman MD PCP - General 10/18/10 [place] [address] [place] [phone] Orthopedic Surgery 05/02/11 [place] [address] [place] [address] Rheumatology 08/20/11 documented as of this encounter
--- OUTSIDE RECORDS SUMMARY | 2024-06-22 21:55 | XMS_ITS | Encounter Summary ---
Author Organization [facility] Address [address] [place], [place] [address] [address] Care Team Providers Care Inspector Rag Sorting Name Role Phone Tim Altman MD Primary Care Provider [phone] Vani Waldrop MD Unavailable [phone] Casper Smith MD Unavailable Unavailable Reason for Visit * Reason Comments Rheumatoid Arthritis Fibromyalgia Encounter Details Date Type Department Care Team (Late st Contact Info) Description 10/19/2014 9:15 AM CDT Office Visit [facility] - Rheumatology [address] [place] [address] [phone] Casper Smith MD Rheumatoid arthritis(714.0) (HCC) (Primary [...] plan needed Call us or send a [employer] Message with any problems * Yeny Oro MA - 10/19/2014 1:02 PM CDT Humira sent to Pending Sale To [facility] * Casper Smith MD - [...] crutches, prosthesis, splint/brace, walker and wheelchair HEENT: CHIGNIK LAGOON , cerumen , anisocoria, retinal, hemorrhage, thrush, [...] nodes, abn 1st [facility],Flexor tend, Finger Deformity: [place] neck/ Boutonniere/ Mallet finger, Ulnar deviation, Dupuytren's, [...] PM CDT Narrative Resulting Agency Comment [facility] [address] ??[facility] [id number] Casper Smith MD LAB - CHEMISTRY CHELI [...] PM CDT Narrative Resulting Agency Comment [facility] [address] ??[facility] [phone] Casper Smith MD LAB - CHEMISTRY CHELI [...] PM CDT Narrative Resulting Agency Comment [facility] [place] [address] [facility] ??[facility] [phone] Casper Smith MD LAB - HEMATOLOGY ORD [...] medications documented in this encounter Care Teams Inspector Rag Sorting Relationship Specialty Start Date End Date Tim Altman MD PCP - General 10/18/10 [place] [address] [place] [address] Orthopedic Surgery 05/02/11 [place] [address] [place] [address] Rheumatology 08/20/11 documented as of this encounter
--- OUTSIDE RECORDS SUMMARY | 2024-06-22 21:55 | XMS_ITS | Encounter Summary ---
Author Organization [facility] Address [facility] [place] [address] Care Team Providers Care Fish Boning Machine Feeder Name Role Phone Tim Altman MD Primary Care Provider [phone] Vani Waldrop MD Unavailable [phone] Casper Smith MD Unavailable Unavailable Reason for Visit * Reason Comments Refill Request Encounter Details Date Type Department Care Team (Late st Contact Info) Description 04/26/2014 Refill [facility] - Family Medicine [address] [place] [id number] Casper Smith MD Refill Request Social History [...] on filedocumented in this encounter Care Teams Fish Boning Machine Feeder Relationship Specialty Start Date End Date Tim Altman MD PCP - General 10/18/10 [place] [address] [place] [phone] Orthopedic Surgery 05/02/11 [place] [address] [place] [address] Rheumatology 08/20/11 documented as of this encounter
--- OUTSIDE RECORDS SUMMARY | 2024-06-22 21:55 | XMS_ITS | Encounter Summary ---
Author Organization [facility] Address [address] [place] [address] [place] [address] Care Team Providers Care Executive Cyber Leader Name Role Phone Tim Altman MD Primary Care Provider [phone] Vani Waldrop MD Unavailable [phone] Casper Smith MD Unavailable Unavailable Reason for Visit * Reason Comments Refill Request Encounter Details Date Type Department Care Team (Late st Contact Info) Description 10/22/2014 Refill [facility] - Rheumatology [address] [place] [address] Casper Smith MD Refill Request Social History [...] on filedocumented in this encounter Care Teams Executive Cyber Leader Relationship Specialty Start Date End Date Tim Altman MD PCP - General 10/18/10 [place] [address] [place] [address] Orthopedic Surgery 05/02/11 [place] [address] [place] [address] Rheumatology 08/20/11 documented as of this encounter
--- OUTSIDE RECORDS SUMMARY | 2024-06-22 21:55 | XMS_ITS | Encounter Summary ---
Author Organization [facility] Address [facility] [place] [address] Care Team Providers Care Pediatric Physical Therapy Assistant Name Role Phone Tim Altman MD Primary Care Provider [phone] Vani Waldrop MD Unavailable [phone] Casper Smith MD Unavailable Unavailable Reason for Visit * Reason Comments Rheumatoid Arthritis Pain Knee Encounter Details Date Type Department Care Team (Late st Contact Info) Description 03/22/2014 12:30 PM CDT Office Visit [facility] - Rheumatology [address] [place] [address] [phone] Casper Smith MD Rheumatoid arthritis (HCC) (Primary [...] MOUTH IN THE MORNING TWO IN THE [id number] Tab 10 ??? acetaminophen (TYLENOL) 500 MG [...] crutches, prosthesis, splint/brace, walker and wheelchair HEENT: [place]G , cerumen , anisocoria, retinal, hemorrhage, thrush, [...] nodes, abn 1st CMC,Flexor tend, Finger Deformity: [place] neck/ Boutonniere/ Mallet finger, Ulnar deviation, Dupuytren's, [...] interference in this assay. Test Performed at: [facility] [id number] [place] [address] ??[phone] MUKUND GILES DO,MPH Blood specimen (specimen) BLOOD SPECIMEN / Unknown 03/22/2014 03/23/2014 6:13 AM CDT Casper Smith MD LAB - CHEMISTRY CHELI [facility] Organization Address City/State/ZIP Co de Phone Number [facility] [address] [place] [address] * (ABNORMAL) CBC W AUTO DIFFERENTIAL (03/22/2014) [...] 0.4 % [facility] Comment: Test Performed at: [facility] [address] [place] [address] ??[phone] MUKUND GILES DO,MPH Blood specimen (specimen) BLOOD SPECIMEN / Unknown 03/22/2014 03/23/2014 6:13 AM CDT Casper Smith MD LAB - HEMATOLOGY ORD ERABLES [facility] [address] [place] [address] * (ABNORMAL) COMPREHENSIVE METABOLIC PANEL (03/22/2014) Pathologist [facility] Glucose 94 65 - 99 mg/dL [facility] Comment: ? Fasting reference interval BUN 14 7 - 25 mg/dL [facility] Creatinine 0.81 0.50 - 1.05 mg/dL [facility] Comment: For patients >49 years of age, the reference limit for Creatinine is approximately 13% higher for people identified as -Burmese. eGFR by MDRD 79 > OR = [...] 29 U/L [facility] Comment: Test Performed at: [facility] [id number] [place] [address] ??[phone] MUKUND GILES DO,MPH Blood specimen (specimen) BLOOD SPECIMEN / Unknown 03/22/2014 03/23/2014 6:13 AM CDT Casper Smith MD LAB - CHEMISTRY CHELI [facility] Organization Address City/State/ZIP Co de Phone Number [facility] [address] [place] [address] documented in this encounter Visit Diagnoses Diagnosis Rheumatoid arthritis(714.0) (HCC)- Primary Rheumatoid arthritis DJD (degenerative joint disease) of knee Osteoarthrosis, unspecified whether generalized or localized, lower leg Restless legs syndrome (RLS) Insomnia Insomnia, unspecified High risk medications (not anticoagulants) long-term use Encounter for long-term (current) use of other medications documented in this encounter Care Teams Pediatric Physical Therapy Assistant Relationship Specialty Start Date End Date Tim Altman MD PCP - General 10/18/10 [place] [address] [address] Orthopedic Surgery 05/02/11 [place] [address] [address] Rheumatology 08/20/11 documented as of this encounter
--- OUTSIDE RECORDS SUMMARY | 2024-06-22 21:55 | XMS_ITS | Encounter Summary ---
Author Organization [facility] Address [address] [place] [address] [place] [address] Care Team Providers Care Program Arranger Name Role Phone Tim Altman MD Primary Care Provider [phone] Vani Waldrop MD Unavailable [phone] Casper Smith MD Unavailable Unavailable Reason for Visit * Reason Onset Date Comments Medication Request 09/04/2014 Encounter Details Date Type Department Care Team (Late st Contact Info) Description 09/04/2014 Telephone [facility] - Rheumatology [address] [place] [address] Casper Smith MD Medication Request Social History [...] - 09/04/2014 2:25 PM CDT Tomasa with [employer] is calling to get a script for 1 Humira pen that they will be sendingto pt at no cost for a malfunction error. They will be faxing the request as well. documented in this encounter Plan of Treatment Not on file documented as of this encounter Visit Diagnoses Not on filedocumented in this encounter Care Teams Program Arranger Relationship Specialty Start Date End Date Tim Altman MD PCP - General 10/18/10 [place] [address] [facility] [address] [place] [address] Orthopedic Surgery 05/02/11 [place] [address] [facility] [address] [place] [address] Rheumatology 08/20/11 documented as of this encounter
--- OUTSIDE RECORDS SUMMARY | 2024-06-22 21:55 | XMS_ITS | Encounter Summary ---
Author Organization [facility] Address [address] [place], [place] [address] [address] Care Team Providers Care Cabinetmaker Maintenance Name Role Phone Tim Altman MD Primary Care Provider Vani Waldrop MD Unavailable [phone] Casper Smith MD Unavailable Unavailable Encounter Details Date Type Department Care Team (Latest Contact Info) Description 02/25/2018 12:40 PM CDT - 02/25/2018 11:59 PM CDT Hospital Encounter [facility] Imaging Services - Radiology [address] [place] [address] Giovani Garg MD [address] [place] [address] Discharge Disposition: Home or Self Care Social [...] azaTHIOprine (IMURAN) 50 MG tabletIndications: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) ([facility]) Take 2 Tabs by mouth once daily. [...] gabapentin (NEURONTIN) 600 MG tabletIndications: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) ([facility]),Fibromyalgia,Prima ry osteoarthritis of both knees,Insomnia,High risk medications [...] 11/02/2013 methotrexate 2.5 MG tabletIndications: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) ([facility]),Fibromyalgia,Prima ry osteoarthritis of both knees,Insomnia,High risk medications (not anticoagulants) long-term use TAKE 8 TABS BY MOUTH EVERY 7 DAYS 40 Tab 4 02/15/2015 metoprolol tartrate IR (LOPRESSOR) 25 MG tablet Take 25 mg by mouth 2 times daily. omeprazole (PRILOSEC) 40 MG capsule Take 40 mg by mouth 2 times daily. 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) ([facility]) 40mg daily x 2 days, 30mg x [...] CDT EXAM: XR PELVIS W BILAT HIP 2VW*[id number] INDICATION: Rheumatoid arthritis with rheumatoid factor of [...] 02/25/2018 EXAM: XR PELVIS W BILAT HIP 2VW*[id number] INDICATION: Rheumatoid arthritis with rheumatoid factor of [...] classified documented in this encounter Care Teams Cabinetmaker Maintenance Relationship Specialty Start Date End Date Tim Altman MD PCP - General 10/18/10 [place] [address] [place] [address] Orthopedic Surgery 05/02/11 [place] [address] [place] [address] Rheumatology 08/20/11 documented as of this encounter
--- OUTSIDE RECORDS SUMMARY | 2024-06-22 21:55 | XMS_ITS | Encounter Summary ---
Author Organization [facility] Address [address] [place] [address] [place] [address] Care Team Providers Care Leather Coverer Name Role Phone Tim Altman MD Primary Care Provider [phone] Vani Waldrop MD Unavailable [phone] Casper Smith MD Unavailable Unavailable Reason for Visit * Reason Onset Date Comments Question 03/28/2014 Encounter Details Date Type Department Care Team (Late st Contact Info) Description 03/28/2014 Telephone [facility] - Family Medicine [address] [place] [address] Casper Smith MD Question Social History Tobacco [...] filedocumented in this encounter Care Teams Leather Coverer Relationship Specialty Start Date End Date Tim Altman MD PCP - General 10/18/10 [place] [address] [place] [address] Orthopedic Surgery 05/02/11 [place] [address] [place] [address] Rheumatology 08/20/11 documented as of this encounter
--- OUTSIDE RECORDS SUMMARY | 2024-06-22 21:55 | XMS_ITS | Encounter Summary ---
Author Organization [facility] Address [address] [place] [address] [place] [address] Care Team Providers Care Cottage Cheese Maker Name Role Phone Tim Altman MD Primary Care Provider [phone] Vani Waldrop MD Unavailable [phone] Casper Smith MD Unavailable Unavailable Reason for Visit * Reason Comments Refill Request Encounter Details Date Type Department Care Team (Late st Contact Info) Description 11/19/2014 Refill [facility] - Rheumatology [address] [place] [address] Casper Smith MD Refill Request Social History [...] on filedocumented in this encounter Care Teams Cottage Cheese Maker Relationship Specialty Start Date End Date Tim Altman MD PCP - General 10/18/10 [place] [address] [place] [address] Orthopedic Surgery 05/02/11 [place] [address] [place] [address] Rheumatology 08/20/11 documented as of this encounter
--- OUTSIDE RECORDS SUMMARY | 2024-06-22 21:55 | XMS_ITS | Encounter Summary ---
Author Organization [facility] Address [address] [place] [address] [place] [address] Care Team Providers Care Publication Manager Name Role Phone Tim Altman MD Primary Care Provider [phone] Vani Waldrop MD Unavailable [phone] Casper Smith MD Unavailable Unavailable Reason for Visit * Reason Onset Date Comments MEDICATION REFILL 01/19/2015 Encounter Details Date Type Department Care Team (Late st Contact Info) Description 01/19/2015 Refill [facility] - Rheumatology [address] [place] [address] Casper Smith MD MEDICATION REFILL Social History [...] on filedocumented in this encounter Care Teams Publication Manager Relationship Specialty Start Date End Date Tim Altman MD PCP - General 10/18/10 [place] [address] [place] [phone] Orthopedic Surgery 05/02/11 [place] [address] [address] Rheumatology 08/20/11 documented as of this encounter
--- OUTSIDE RECORDS SUMMARY | 2024-06-22 21:55 | XMS_ITS | Encounter Summary ---
Author Organization [facility] Address [address] [place] [address] [place] [address] Care Team Providers Care C Winforms Developer Name Role Phone Tim Altman MD Primary Care Provider [phone] Vani Waldrop MD Unavailable Casper Smith MD Unavailable Unavailable Reason for Visit * Reason Onset Date Comments MEDICATION REFILL 02/08/2014 Encounter Details Date Type Department Care Team (Late st Contact Info) Description 02/08/2014 Refill [facility] - Rheumatology [address] [place] [address] [phone] Casper Smith MD MEDICATION REFILL Social History [...] a refill for her prednisone to her [facility] pharmacy documented in this encounter Plan of Treatment Not on file documented as of this encounter Visit Diagnoses Diagnosis Rheumatoid arthritis(714.0) (HCC) Rheumatoid arthritis documented in this encounter Care Teams C Winforms Developer Relationship Specialty Start Date End Date Tim Altman MD PCP - General 10/18/10 [place] [address] [place] [address] Orthopedic Surgery 05/02/11 [place] [address] [place] [address] Rheumatology 08/20/11 documented as of this encounter
--- OUTSIDE RECORDS SUMMARY | 2024-06-22 21:56 | XMS_ITS | Encounter Summary ---
Author Organization [facility] Address [facility] [place] [address] Care Team Providers Care Rayon Tester Name Role Phone Tim Altman MD Primary Care Provider [phone] Vani Waldrop MD Unavailable [phone] Reason for Visit * Reason Comments Upper Extremity Problem Encounter Details Date Type Department Care Team (Late st Contact Info) Description 05/15/2011 11:45 AM MANAGER MECHANICAL MAINTENANCE Procedure visit [facility] - Family Medicine [address] [place], [place] [id number] Pain in limb Social History Tobacco Use [...] RA Activity and Median nerve dimensions using RedCap5 Ultrasound Apparatus with a 438 probe at [...] effect the diagnostic impression are recordedby the children's program coordinator under the direction of the attending physician [...] MD directly to discuss this case at [phone]. GER MECHANICAL MAINTENANCE documented in this encounter Plan of Treatment Not on file documented as of this encounter Procedures Procedure Name Priority Date/Time Associated Diagnosis Comments US EXTREMITY NON VASCULAR RIGHT Routine 05/19/2011 2:50 PM MANAGER MECHANICAL MAINTENANCE Hand pain documented in this encounter Visit Diagnoses Diagnosis Pain in limb documented in this encounter Care Teams Rayon Tester Relationship Specialty Start Date End Date Tim Altman MD PCP - General 10/18/10 [place] [address] [phone] Orthopedic Surgery 05/02/11 documented as of this encounter
--- OUTSIDE RECORDS SUMMARY | 2024-06-22 21:56 | XMS_ITS | Encounter Summary ---
Author Organization [facility] Address [address] [place] [address] [place] [address] Care Team Providers Care Social Psychologist Name Role Phone Tim Altman MD Primary Care Provider [phone] Vani Waldrop MD Unavailable [phone] Casper Smith MD Unavailable Unavailable Reason for Visit * Reason Onset Date Comments Follow-up 07/28/2013 Encounter Details Date Type Department Care Team (Late st Contact Info) Description 07/28/2013 Telephone [facility] Medical [facility] - Rheumatology [address] [place] [address] [phone] Casper Smith MD Follow-up Social History Tobacco [...] Leave message for patient to call back BUTCHER * Telephone Encounter - Yeny Oro MA - 07/28/2013 11:17 AM CST Pt can start Azathioprine at pharmacy but needs an appt BUTCHER * Telephone Encounter - Yeny Oro MA [...] have fluid taken off and cortisone shot. BUTCHER * Telephone Encounter - CabreraManasa - 07/28/2013 [...] have fluid taken off and cortisone shot. BUTCHER documented in this encounter Plan of Treatment Not on file documented as of this encounter Visit Diagnoses Diagnosis Rheumatoid arthritis(714.0) ([facility])- Primary Rheumatoid arthritis documented in this encounter Care Teams Social Psychologist Relationship Specialty Start Date End Date Tim Altman MD PCP - General 10/18/10 [place] [address] [place] [address] Orthopedic Surgery 05/02/11 [place] [address] [place] [address] Rheumatology 08/20/11 documented as of this encounter
--- OUTSIDE RECORDS SUMMARY | 2024-06-22 21:56 | XMS_ITS | Encounter Summary ---
Author Organization [facility] Address [facility] [place] [address] Care Team Providers Care Multi Slide Machine Tender Name Role Phone Tim Altman MD Primary Care Provider [phone] Vani Waldrop MD Unavailable [phone] Casper Smith MD Unavailable Unavailable Reason for Visit * Reason Comments Imm Inj synvisc sapna knee Encounter Details Date Type Department Care Team (Late st Contact Info) Description 12/02/2011 10:30 AM CDT Office Visit [facility] - Rheumatology [address] [place] [address] Casper Smith MD DJD (degenerative joint [...] Smith MD - 12/02/2011 4:59 PM CDT [facility] [address] [address] Ultrasound guided viscosupplement injection in knees to [...] are available on request. Casper Smith MD [phone] Office documented in this encounter Plan of Treatment Not on file documented as of this encounter Visit Diagnoses Diagnosis DJD (degenerative joint disease) of knee- Primary Osteoarthrosis, unspecified whether generalized or localized, lower leg documented in this encounter Care Teams Multi Slide Machine Tender Relationship Specialty Start Date End Date Tim Altman MD PCP - General 10/18/10 [place] [address] [place] [address] Orthopedic Surgery 05/02/11 [place] [address] [place] [address] Rheumatology 08/20/11 documented as of this encounter
--- OUTSIDE RECORDS SUMMARY | 2024-06-22 21:56 | XMS_ITS | Encounter Summary ---
Author Organization [facility] Address [address] [place] [address] [place] [address] Care Team Providers Care Foundation Stage Teacher Name Role Phone Tim Altman MD Primary Care Provider [phone] Vani Waldrop MD Unavailable Casper Smith MD Unavailable Unavailable Reason for Visit * Treatment (Routine) - Closed Specialty Diagnoses / Procedures Referred By Dariela nettles Referred To Contact Infusion Therapy Nurse Diagnoses Rheumatoid arthritis(714.0) ([facility]) Procedures AR INJECTION TOCILIZUMAB 1 MG Casper Smith MD Referral ID Status Reason Start Date Expiration Date Visits Re quested Visits Authorized [id number] Closed 09/07/2013 03/06/2014 1 6 Encounter Details Date Type Department Care Team (Latest Contact Info) Description 09/29/2013 1:14 PM CDT - 09/29/2013 11:59 PM CDT Hospital Encounter [facility] - Rheumatology [address] [place] [address] Casper Smith MD Discharge Disposition: Home or [...] Mae RN - 09/29/2013 1:50 PM CDT [place] Rheumatology Post Infusion instructions You have received [...] rash or breathing problems please call your [facility] Rheumatology physician for further instructions. While most problems that occur around the time of an infusion are very mild and not dangerous, they should not be ignored. Thursday through Thursday 9-5 call the office at [phone] After hours or on the weekend call the exchange at [phone] If you have had lab work done [...] you and are glad you have chosen [facility] as your provider. Atnoine Mae RN * Discharge Instructions* Document, Scanned [...] - 09/29/2013 2:21 PM CDT AMOS Mcneil [id number] 09/29/2013 Diagnosis: Rheumatoid arthritis [714.0]. Patient questionnaire [...] this encounter Visit Diagnoses Diagnosis Rheumatoid arthritis(714.0) ([facility])- Primary Rheumatoid arthritis documented in [...] mL/hr documented in this encounter Care Teams Foundation Stage Teacher Relationship Specialty Start Date End Date Tim Altman MD PCP - General 10/18/10 [place] [address] [place] [address] Orthopedic Surgery 05/02/11 [place] [address] [place] [address] Rheumatology 08/20/11 documented as of this encounter
--- OUTSIDE RECORDS SUMMARY | 2024-06-22 21:56 | XMS_ITS | Encounter Summary ---
Author Organization [facility] Address [address] [place], [place] [address] [address] Care Team Providers Care Monotypist Name Role Phone Tim Altman MD Primary Care Provider [phone] Vani Waldrop MD Unavailable [phone] Casper Smith MD Unavailable Unavailable Encounter Details Date Type Department Care Team (Late st Contact Info) Description 03/14/2013 Orders Only [facility] Medical [facility] - Rheumatology [address] [place] [address] Haylee Plummer RN Polymyalgia rheumatica (HCC) Social [...] rheumatica documented in this encounter Care Teams Monotypist Relationship Specialty Start Date End Date Tim Almtan MD PCP - General 10/18/10 [place] [address] [phone] Orthopedic Surgery 05/02/11 [place] [address] [address] [place] [address] Rheumatology 08/20/11 documented as of this encounter
--- OUTSIDE RECORDS SUMMARY | 2024-06-22 21:56 | XMS_ITS | Encounter Summary ---
Author Organization [facility] Address [address] [place], [place] [address] [address] Care Team Providers Care Health And Safety Consultant Name Role Phone Tim Altman MD Primary Care Provider [phone] Vani Waldrop MD Unavailable [phone] Casper Smith MD Unavailable Unavailable Encounter Details Date Type Department Care Team (Late st Contact Info) Description 07/05/2013 Orders Only [facility] Medical [facility] - Rheumatology [address] [place] [address] Casper Smith MD Social History Tobacco Use [...] CITRULLINATED PEPTIDE(CCP) AB IGG 07/05/2013 3:00 PM SANITATION OFFICER documented in this encounter Results * CYCLIC CITRUL PEPTIDE AB IGG (CCP) (07/05/2013 3:00 PM SANITATION OFFICER) Pathologist [facility] Cyclic Citrullinated Peptide Antibody IgG <16 UNITS [facility] Comment: Reference Range Negative: ?<20 Weak Positive: ? 20-39 Moderate Positive: ?? 40-59 Strong Positive: ? >59 Test Performed at: [facility] [address] [place], [place] ??[phone] MUKUND GILES DO,MPH 07/05/2013 4:2 9 AM SANITATION OFFICER Casper Smith MD LAB - CHEMISTRY CHELI [facility] [address] [place] [address] documented in this encounter Visit Diagnoses Not on filedocumented in this encounter Care Teams Health And Safety Consultant Relationship Specialty Start Date End Date Tim Altman MD PCP - General 10/18/10 [place] [address] [place] [address] Orthopedic Surgery 05/02/11 [place] [address] [place] [address] Rheumatology 08/20/11 documented as of this encounter
--- OUTSIDE RECORDS SUMMARY | 2024-06-22 21:56 | XMS_ITS | Encounter Summary ---
Author Organization [facility] Address [address] [place], [place] [address] [address] Care Team Providers Care Corncob Pipe Manufacturing Supervisor Name Role Phone Tim Altman MD Primary Care Provider [phone] [phone] Vani Waldrop MD Unavailable [phone] Casper Smtih MD Unavailable Unavailable Reason for Visit * Reason Comments Polymyalgia Rheumatica follow up Encounter Details Date Type Department Care Team (Latest Contact Info) Description 08/21/2011 9:30 AM CARPET SEWING MACHINE OPERATOR Office Visit [facility] - Rheumatology [address] [place] [address] [phone] Casper Smith MD Fibromyalgia (Primary Dx); PMR [...] Comments Blood Pressure 122/76 08/21/2011 9:23 AM CARPET SEWING MACHINE OPERATOR Pulse 86 08/21/2011 9:23 AM CARPET SEWING MACHINE OPERATOR Temperature - - Respiratory Rate - - Oxygen Saturation - - Inhaled Oxygen Concentration - - Weight 113.4 kg (250 lb) 08/21/2011 9:23 AM CARPET SEWING MACHINE OPERATOR Height 163.8 cm (5' 4.5 ) 08/21/2011 9:23 AM CARPET SEWING MACHINE OPERATOR Body Mass Index 42.25 08/21/2011 9:23 AM CARPET SEWING MACHINE OPERATOR documented in this encounter Patient Instructions * Patient Instructions* Casper Smith MD - 08/21/2011 9:41 AM CARPET SEWING MACHINE OPERATOR Prednisone 5mg daily for 14 days then stop ET SEWING MACHINE OPERATOR documented in this encounter Progress Notes [...] daily 30 Tab 4 ??? nystatin (MYCOSTATIN) 274195 UNIT/ML suspension Take 5 mL by mouth [...] crutches, prosthesis, splint/brace, walker and wheelchair HEENT: [place] , cerumen , anisocoria, retinal, hemorrhage, thrush, [...] abn 1st CMC, Flexor tend, Finger Deformity: [place] neck/ Boutonniere/ Mallet finger, Ulnar deviation, Dupuytren's, [...] Dr Cathie Wilkerson NeuroOpth, Dr Reaves Neurology ET SEWING MACHINE OPERATOR documented in this encounter Plan of [...] interference in this assay. Test Performed at: [employer] [address] [place], [place] ??[phone] MUKUND GILES DO,MPH Blood specimen (specimen) BLOOD SPECIMEN / Unknown 08/21/2011 08/22/2011 2:04 AM CARPET SEWING MACHINE OPERATOR Casper Smith MD LAB - CHEMISTRY CHELI SAAB [facility] Organization Address City/State/ZIP Co de Phone Number [facility] [address] [place] [address] * (ABNORMAL) COMPREHENSIVE METABOLIC PANEL (08/21/2011) Pathologist [facility] Glucose 90 65 - 99 mg/dL [facility] Comment: ? Fasting reference interval BUN 17 7 - 25 mg/dL [facility] Creatinine 0.72 0.50 - 1.05 mg/dL [facility] Comment: For patients >49 years of age, the reference limit for Creatinine is approximately 13% higher for people identified as -Peruvian. eGFR by MDRD 93 > OR = [...] 40 U/L [facility] Comment: Test Performed at: [facility] [facility] [address] [place], [place] ??[phone] MUKUND GILES DO,MPH Blood specimen (specimen) BLOOD SPECIMEN / Unknown 08/21/2011 08/22/2011 2:04 AM CARPET SEWING MACHINE OPERATOR Casper Smith MD LAB - CHEMISTRY CHELI SAAB Performing Organization Address City/State/[facility] Co de Phone Number [facility] [address] [place] [address] * (ABNORMAL) CBC W AUTO DIFFERENTIAL (08/21/2011) [...] 1.3 % [facility] Comment: Test Performed at: [employer] [facility] [address] [place], [place] ??[phone] MUKUND J GILES,DO,MPH Blood specimen (specimen) BLOOD SPECIMEN / Unknown 08/21/2011 08/22/2011 2:04 AM CARPET SEWING MACHINE OPERATOR Casper Smith MD LAB - HEMATOLOGY ORD ERABLES [facility] Organization Address City/State/ZIP Co de Phone Number [facility] [address] [place] [address] documented in this encounter Visit Diagnoses Diagnosis Fibromyalgia- Primary Mylagia and myositis, unspecified PMR (polymyalgia rheumatica) (HCC) Polymyalgia rheumatica DJD (degenerative joint disease) of knee Osteoarthrosis, unspecified whether generalized or localized, lower leg Restless legs syndrome (RLS) Insomnia Insomnia, unspecified High risk medications (not anticoagulants) long-term use Encounter for long-term (current) use of other medications documented in this encounter Care Teams Corncob Pipe Manufacturing Supervisor Relationship Specialty Start Date End Date Tim Altman MD PCP - General 10/18/10 [place] [address] [place] [address] Orthopedic Surgery 05/02/11 [place] [address] [place] [address] Rheumatology 08/20/11 documented as of this encounter
--- OUTSIDE RECORDS SUMMARY | 2024-06-22 21:56 | XMS_ITS | Encounter Summary ---
Author Organization [facility] Address [address] [place] [address] [place] [address] Care Team Providers Care Merchandise Processor Name Role Phone Tim Altman MD Primary Care Provider [phone] Vani Waldrop MD Unavailable [phone] Casper Smith MD Unavailable Unavailable Reason for Visit * Reason Onset Date Comments Follow-up 11/20/2011 Encounter Details Date Type Department Care Team (Late st Contact Info) Description 11/20/2011 Telephone [facility] Medical [facility] - Rheumatology [address] [place] [address] [phone] Casper Smith MD Follow-up Social History Tobacco [...] on filedocumented in this encounter Care Teams Merchandise Processor Relationship Specialty Start Date End Date Tim Altman MD PCP - General 10/18/10 [place] [address] [place] [address] Orthopedic Surgery 05/02/11 [place] [address] [place] [address] Rheumatology 08/20/11 documented as of this encounter
--- OUTSIDE RECORDS SUMMARY | 2024-06-22 21:56 | XMS_ITS | Encounter Summary ---
Author Organization [facility] Address [facility] [place] [address] Care Team Providers Care Hotel Yardperson Name Role Phone Tim Altman MD Primary Care Provider [phone] Vani Waldrop MD Unavailable [phone] Casper Smith MD Unavailable Unavailable Reason for Visit * Reason Comments Imm Inj Synvisc; bilateral k nees Encounter Details Date Type Department Care Team (Late st Contact Info) Description 12/09/2011 10:30 AM CDT Office Visit [facility] - Rheumatology [address] [place] [address] Casper Smith MD DJD (degenerative joint disease) [...] Smith MD - 12/10/2011 1:43 PM CDT [facility] Rheumatology Ultrasound Clinic [address] [place] [address] Ultrasound guided viscosupplement injection in knees to [...] are available on request. Casper Smith MD [phone] Office documented in this encounter Plan of Treatment Not on file documented as of this encounter Visit Diagnoses Diagnosis DJD (degenerative joint disease) of knee- Primary Osteoarthrosis, unspecified whether generalized or localized, lower leg Fibromyalgia Mylagia and myositis, unspecified documented in this encounter Care Teams Hotel Yardperson Relationship Specialty Start Date End Date Tim Altman MD PCP - General 10/18/10 [place] [address] [place] [address] Orthopedic Surgery 05/02/11 [place] [address] [place] [address] Rheumatology 08/20/11 documented as of this encounter
--- OUTSIDE RECORDS SUMMARY | 2024-06-22 21:56 | XMS_ITS | Encounter Summary ---
Author Organization [facility] Address [address] [place], [place] [address] [address] Care Team Providers Care Pattern Ruler Name Role Phone Tim Altman MD Primary Care Provider [phone] [phone] Vani Waldrop MD Unavailable [phone] Casper Smith MD Unavailable Unavailable Reason for Visit * Reason Onset Date Comments Question 06/21/2013 General Encounter Details Date Type Department Care Team (Late st Contact Info) Description 06/21/2013 Telephone [facility] Medical [facility] - Rheumatology [address] [place] [address] [phone] Casper Smith MD Question; Social History Tobacco [...] can get in to have infusion done. 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
--- OUTSIDE RECORDS SUMMARY | 2024-06-22 21:56 | XMS_ITS | Encounter Summary ---
Author Organization [facility] Address [facility] [place] [address] Care Team Providers Care Sexer Name Role Phone Tim Altman MD Primary Care Provider [phone] Vani Waldrop MD Unavailable [phone] Casper Smith MD Unavailable Unavailable Reason for Visit * Reason Onset Date Comments Follow-up 03/02/2013 Encounter Details Date Type Department Care Team (Late st Contact Info) Description 03/02/2013 Telephone [facility] Medical [facility] - Rheumatology [address] [place] [address] [phone] Casper Smith MD Follow-up Social History Tobacco [...] on filedocumented in this encounter Care Teams Sexer Relationship Specialty Start Date End Date Tim Altman MD PCP - General 10/18/10 [place] [address] [place] [address] Orthopedic Surgery 05/02/11 [place] [address] [place] [address] Rheumatology 08/20/11 documented as of this encounter
--- OUTSIDE RECORDS SUMMARY | 2024-06-22 21:56 | XMS_ITS | Encounter Summary ---
Author Organization [facility] Address [facility] [place] [address] Care Team Providers Care Reservations Sales Agent Name Role Phone Tim Altman MD Primary Care Provider [phone] Vani Waldrop MD Unavailable [phone] Casper Smith MD Unavailable Unavailable Reason for Referral * - Closed Specialty Diagnoses / Procedures Referred By Dariela nettles Referred To Contact Diagnoses Polyarthritis Procedures US EXTREMITY LEFT COMPLT NONVASC Casper Smith MD Referral ID Status Reason Start Date Expiration Date Visits Re quested Visits Authorized [id number] Closed 11/15/2012 05/14/2013 1 1 * - Closed Specialty Diagnoses / Procedures Referred By Dariela nettles Referred To Contact Diagnoses Polyarthritis Procedures US EXTREMITY NON VASCULAR RIGHT Casper Smith MD Referral ID Status Reason Start Date Expiration Date Visits Re quested Visits Authorized [id number] Closed 11/15/2012 05/14/2013 1 1 Reason for Visit * Reason Comments Lower Extremity Problem nodules on knees , ankle, & foot & pain Upper Extremity Problem nodules on elbow s & pain Encounter Details Date Type Department Care Team (Latest Contact Info) Description 11/15/2012 11:30 AM CDT Office Visit [facility] - Rheumatology [address] [place] [address] Casper Smith MD Polyarthritis (Primary Dx); Right [...] MOUTH IN THE MORNING TWO IN THE [id number] Tab 11 ??? methylPREDNISolone (MEDROL DOSEPAK) 4 [...] daily. 30 Tab 12 ??? nystatin (MYCOSTATIN) [id number] UNIT/ML suspension Take 5 mL by mouth [...] crutches, prosthesis, splint/brace, walker and wheelchair HEENT: [place] , cerumen , anisocoria, retinal, hemorrhage, thrush, [...] abn 1st CMC, Flexor tend, Finger Deformity: [place] neck/ Boutonniere/ Mallet finger, Ulnar deviation, Dupuytren's, [...] (CCP) ??? ACETYLCHOLINE RECEPTOR ANTIBODY PANEL ??? PA DRAIN/INJECT LARGE JOINT/BURSA ??? methylPREDNISolone acetate (DEPO-MEDROL) [...] 30 Tab Refill: 12 ??? nystatin (MYCOSTATIN) [id number] UNIT/ML suspension Sig: Take 5 mL by [...] Dr Cathie Wilkerson NeuroOpt, Dr Reaves Neurology [facility] Rheumatology Ultrasound Clinic [address] [place] [address] Ultrasound apparatus: Biosound MyLab5 with a LA435 or LA523 probe set at 10-18 mHz as clinically indicated based on site for visualization of the needle and patient anatomy Procedure: depo 80 right knee after social sciences lecturer views confirmed presence of effusion and mild [...] with any questions Casper Smith MD Office [phone] Back line [phone] documented in this encounter Plan of Treatment [...] the diagnostic impression are recorded by the harvest contractor under the direction of the attending physician [...] MD directly to discuss this case at [phone] or via vufind messaging at: [employer]. Procedure Note Casper Smith MD - 11/16/2012 [...] effect the diagnostic impression arerecorded by the harvest contractor under the direction of the attendingphysician and [...] MD directly to discuss this case at [phone] [employer] messaging at: [employer]. Casper Smith MD US ORDERABLES * US EXTREMITY LEFT COMPLT NONVASC (11/16/2012 4:34 PM CDT) Anatomical Region Laterality Modality Lower Extremity, Upper Extremity Other Narrative 11/16/2012 4:34 PM CDT Casper Smith MD ? 11/16/2012 ??4:34 PM Bilateral Hand Ultrasound Protocol: Complete Bilateral Hand Study for RA Activity and Median nerve dimensions using MyLab5 with a 438 probe at 18mHz or [employer] M7 with a L14-6s probe at 14 [...] the diagnostic impression are recorded by the harvest contractor under the direction of the attending physician [...] MD directly to discuss this case at [phone] or via vufind messaging at: [employer]. Procedure Note Casper Smith MD - 11/16/2012 4:32 PM CDT Bilateral Hand Ultrasound Protocol: Complete Bilateral Hand Study for RA Activity and Median nerve dimensionsusing MyLab5 with a 438 probe at 18mHz or [facility] M7 with a L14-6s probeat [...] effect the diagnostic impression arerecorded by the harvest contractor under the direction of the attendingphysician and [...] MD directly to discuss this case at [phone] [employer] messaging at: [employer]. Casper Smith MD ORDERABLES * ACETYLCHOLINE RECEPTOR [...] research purposes ? only by the assay's pathology laboratory director. ??The performance ? characteristics of this product [...] PM CDT Narrative Resulting Agency Comment [facility] [address] ??[facility] [phone] Casper Smith MD LAB - SEROLOGY ORDER [...] PM CDT Narrative Resulting Agency Comment [facility] [address] ??[facility] [phone] Casper Smith MD LAB - SEROLOGY ORDER KAMILA Performing Organization Address City/[facility] Co de Phone Number [facility] ACCOUNT BILL * C-REACTIVE PROTEIN (11/15/2012 12:59 PM CDT) C-Reactive Protein 2.6 0.0 - 4.9 mg/L [facility] ACCOUNT BILL Blood specimen (specimen) BLOOD SPECIMEN / Unknown 11/15/2012 12:59 PM CDT 11/15/2012 7:37 PM CDT Narrative Resulting Agency Comment [facility] [address] ??[facility] [phone] Casper Smith MD LAB - CHEMISTRY CHELI SAAB Performing Organization Address City/[facility]/ZIP Co de Phone Number [facility] ACCOUNT [...] PM CDT Narrative Resulting Agency Comment [facility] [address] ??[facility] [phone] Casper Smith MD LAB - CHEMISTRY CHELI [...] PM CDT Narrative Resulting Agency Comment [facility] [address] ??[facility] [phone] Casper Smith MD LAB - HEMATOLOGY ORD ERABLES [facility] ACCOUNT BILL documented in this encounter Visit Diagnoses Diagnosis Polyarthritis- Primary Unspecified polyarthropathy or polyarthritis, site unspecified Right knee pain Pain in joint, lower leg Diplopia PMR (polymyalgia rheumatica) ([facility]) Polymyalgia rheumatica Fibromyalgia Mylagia and myositis, unspecified Thrush Candidiasis of mouth Polyarthritis- Primary Unspecified polyarthropathy or polyarthritis, site unspecified Unspecified polyarthropathy or polyarthritis, site unspecified documented in this encounter Care Teams Reservations Sales Agent Relationship Specialty Start Date End Date Tim Altman MD PCP - General 10/18/10 [place] [address] [place] [address] Orthopedic Surgery 05/02/11 [place] [address] [address] [place] [address] Rheumatology 08/20/11 documented as of this encounter
--- OUTSIDE RECORDS SUMMARY | 2024-06-22 21:56 | XMS_ITS | Encounter Summary ---
Author Organization [facility] Address [address] [place] [address] [place] [address] Care Team Providers Care Bariatric Surgeon Name Role Phone Tim Altman MD Primary Care Provider [phone] Vani Waldrop MD Unavailable [phone] Casper Smith MD Unavailable Unavailable Reason for Visit * Reason Comments Refill Request Encounter Details Date Type Department Care Team (Late st Contact Info) Description 10/24/2013 Refill [facility] - Rheumatology [address] [place] [address] Casper Smith MD Refill Request Social History [...] on filedocumented in this encounter Care Teams Bariatric Surgeon Relationship Specialty Start Date End Date Tim Altman MD PCP - General 10/18/10 [place] [address] [place] [address] Orthopedic Surgery 05/02/11 [place] [address] [place] [address] Rheumatology 08/20/11 documented as of this encounter
--- OUTSIDE RECORDS SUMMARY | 2024-06-22 21:56 | XMS_ITS | Encounter Summary ---
Author Organization [facility] Address [address] [place], [place] [address] [address] Care Team Providers Care Nitroglycerin Neutralizer Name Role Phone Tim Altman MD Primary Care Provider [phone] Vani Waldrop MD Unavailable [phone] Casper Smith MD Unavailable Unavailable Encounter Details Date Type Department Care Team (Late st Contact Info) Description 09/29/2013 Orders Only [facility] - Rheumatology [address] [place] [address] Casper Smith MD Encounter for long-term (current) [...] 200 mg/dL [facility] Comment: Test Performed at: [employer] [facility] [address] [place], [place] ??[phone] MUKUND GILES DO,MPH HDL Cholesterol 84 > [...] MD LAB [facility] Organization Address City/State/ZIP Co de Phone Number [facility] [address] [place] [address] * (ABNORMAL) COMPREHENSIVE METABOLIC PANEL (09/30/2013 8:00 [...] 29 U/L [facility] Comment: Test Performed at: [employer] [place], [place] ??[phone] MUKUND GILES DO,MPH Blood specimen (specimen) BLOOD SPECIMEN / Unknown 09/30/2013 4:24 AM CDT Casper Smith MD LAB - CHEMISTRY ORDE [facility] Performing Organization Address City/State/[facility] Co de Phone Number [facility] [address] [place] [address] * (ABNORMAL) CBC W AUTO DIFFERENTIAL (09/30/2013 [...] 0.2 % [facility] Comment: Test Performed at: [employer] [place], [place] ??[phone] MUKUND GILES DO,MPH Blood specimen (specimen) BLOOD SPECIMEN / Unknown 09/30/2013 4:24 AM CDT Casper Smith MD LAB - HEMATOLOGY ORD ERABLES [facility] [address] [place] [address] documented in this encounter Visit Diagnoses Diagnosis Encounter for long-term (current) use of other medications- Primary Lipid screening Screening for lipoid disorders documented in this encounter Care Teams Nitroglycerin Neutralizer Relationship Specialty Start Date End Date Tim Altman MD PCP - General 10/18/10 [place] [address] [place] [address] Orthopedic Surgery 05/02/11 [place] [address] [place] [address] Rheumatology 08/20/11 documented as of this encounter
--- OUTSIDE RECORDS SUMMARY | 2024-06-22 21:56 | XMS_ITS | Encounter Summary ---
Author Organization [facility] Address [address] [place] [address] [place] [address] Care Team Providers Care Histopathology Technician Name Role Phone Tim Altman MD Primary Care Provider [phone] Vani Waldrop MD Unavailable [phone] Casper Smith MD Unavailable Unavailable Reason for Visit * Reason Comments Refill Request Encounter Details Date Type Department Care Team (Late st Contact Info) Description 07/04/2012 Refill [facility] - Rheumatology [address] [place] [address] Casper Smith MD Refill Request Social History [...] on filedocumented in this encounter Care Teams Histopathology Technician Relationship Specialty Start Date End Date Tim Altman MD PCP - General 10/18/10 [place] [address] [place] [address] Orthopedic Surgery 05/02/11 [place] [address] [place] [address] Rheumatology 08/20/11 documented as of this encounter
--- OUTSIDE RECORDS SUMMARY | 2024-06-22 21:56 | XMS_ITS | Encounter Summary ---
Author Organization [facility] Address [address] [place] [address] [place] [address] Care Team Providers Care Boat Crew Deck Hand Name Role Phone Tim Altman MD Primary Care Provider [phone] Vani Waldrop MD Unavailable [phone] Casper Smith MD Unavailable Unavailable Reason for Visit * Reason Onset Date Comments Billing Question 10/17/2013 Encounter Details Date Type Department Care Team (Late st Contact Info) Description 10/17/2013 Telephone [facility] - Family Medicine [address] [place] [address] [phone] Casper Smith MD Billing Question Social History [...] on filedocumented in this encounter Care Teams Boat Crew Deck Hand Relationship Specialty Start Date End Date Tim Altman MD PCP - General 10/18/10 [place] [address] [place] [address] Orthopedic Surgery 05/02/11 [place] [address] [place] [address] Rheumatology 08/20/11 documented as of this encounter
--- OUTSIDE RECORDS SUMMARY | 2024-06-22 21:56 | XMS_ITS | Encounter Summary ---
Author Organization [facility] Address [address] [place], [place] [address] [address] Care Team Providers Care Christmas Tree Grower Name Role Phone Tim Altman MD Primary Care Provider +1 [phone] Vani Waldrop MD Unavailable [phone] Casper Smith MD Unavailable Unavailable Encounter Details Date Type Department Care Team (Late st Contact Info) Description 09/30/2013 Orders Only [facility] - Rheumatology [address] [place] [address] Casper Smith MD Social History Tobacco Use [...] HAVE ORDERED LIPID PANEL (REFL) ORDER CODE 16425. ??THIS IS A REFLEX-SPECIFIC ORDER CODE. HOWEVER, ONLY THE INITIAL TEST WAS PERFORMED, BECAUSE WE DO NOT HAVE A REFLEX TESTING AUTHORIZATION FORM ON FILE FOR YOU. ??TO PERFORM A REFLEX TEST WE NEED YOU TO SIGN AN AUTHORIZATION FORM SPECIFYING (A) THE REFLEXIVE TEST AND (B) THE RESULTS THAT WILL TRIGGER THE PERFORMANCE OF THE REFLEX TEST. ??PLEASE CONTACT THE INSTRUCTIONAL INTERVENTIONIST AT [facility] IF YOU WOULD LIKE ADDITIONAL TESTING DONE OR CONTACT YOUR PREVENTIVE MAINTENANCE ENGINEER TO OBTAIN A COPY OF THE REFLEXIVE TESTING AUTHORIZATION FORM. ? IF YOU WOULD PREFER A NON-REFLEXIVE VERSION OF LIPID PANEL (REFL), PLEASE ORDER THE NON REFLEX LIPID PANEL, ORDER CODE 7600. NO COLLECTION DATE RECEIVED. WE HAVE USED THE DATE THE SPECIMEN WAS RECEIVED BY THIS LABORATORY THE COLLECTION DATE. IF THIS IS INCORRECT, PLEASE CONTACT CLIENT SERVICES. PHONE NUMBER: [phone] Test Performed at: [facility] [address] ??[id number] MUKUND GILES DO,MPH 09/30/2013 4:2 4 AM CDT Casper Smith MD LAB - CHEMISTRY CHELI SAAB [facility] Organization Address City/State/ZIP Co de Phone Number [facility] [address] [place] [address] documented in this encounter Visit Diagnoses Not on filedocumented in this encounter Care Teams Christmas Tree Grower Relationship Specialty Start Date End Date Tim Altman MD PCP - General 10/18/10 [place] [address] [place] [address] Orthopedic Surgery 05/02/11 [place] [address] [place] [address] Rheumatology 08/20/11 documented as of this encounter
--- OUTSIDE RECORDS SUMMARY | 2024-06-22 21:56 | XMS_ITS | Encounter Summary ---
Author Organization [facility] Address [address] [place] [address] [place] [address] Care Team Providers Care Transmission And Protection Engineer Name Role Phone Tim Altman MD Primary Care Provider [phone] Vani Waldrop MD Unavailable [phone] Casper Smith MD Unavailable Unavailable Reason for Visit * Treatment (Routine) - Closed Specialty Diagnoses / Procedures Referred By Dariela nettles Referred To Contact Infusion Therapy Nurse Diagnoses Polymyalgia rheumatica (HCC) Procedures NM INFLIXIMAB INJECTION Casper Smith MD Referral ID Status Reason Start Date Expiration Date Visits Re quested Visits Authorized [id number] Closed 03/10/2013 06/14/2013 1 4 Encounter Details Date Type Department Care Team (Latest Contact Info) Description 04/25/2013 10:00 AM STUDENT LOAN COUNSELOR - 04/25/2013 11:59 PM STUDENT LOAN COUNSELOR Hospital Encounter [facility] - Rheumatology [address] [place] [address] Casper Smith MD Discharge Disposition: Home or [...] Comments Blood Pressure 142/90 04/25/2013 10:23 AM STUDENT LOAN COUNSELOR Pulse 90 04/25/2013 10:23 AM STUDENT LOAN COUNSELOR Temperature 36.6 ??C (97.8 ??F) 04/25/2013 10:[address] Respiratory Rate 16 04/25/2013 10:23 AM STUDENT LOAN COUNSELOR Oxygen Saturation - - Inhaled Oxygen Concentration - - Weight 106.6 kg (235 lb) 04/25/2013 10:23 AM STUDENT LOAN COUNSELOR Height 162.6 cm (5' 4 ) 04/25/2013 10:23 AM STUDENT LOAN COUNSELOR Body Mass Index 40.34 04/25/2013 10:23 AM STUDENT LOAN COUNSELOR documented in this encounter Discharge Instructions * Discharge Instructions* Document, Scanned - 05/10/2013 9:42 PM STUDENT LOAN COUNSELOR ENT LOAN COUNSELOR documented in this encounter Medications at Time [...] 04/25/2013 11:15 AM CST INFUSIONS Lexi Mcneil [id number] 04/25/2013 Patient questionnaire results Health Assessment Questionnaire [...] Next treatment? 8 weeks Haylee Plummer RN ENT LOAN COUNSELOR documented in this encounter Miscellaneous Notes * Miscellaneous Scans - Document, Scanned - 04/27/2013 5:17 AM CST ENT LOAN COUNSELOR documented in this encounter Plan of Treatment [...] filter. $ New Bag/Syringe 04/25/2013 10:50 AM STUDENT LOAN COUNSELOR 400 mg 130 mL/hr documented in this encounter Care Teams Transmission And Protection Engineer Relationship Specialty Start Date End Date Tim Altman MD PCP - General 10/18/10 [place] [address] [place] [address] Orthopedic Surgery 05/02/11 [place] [address] [place] [address] Rheumatology 08/20/11 documented as of this encounter
--- OUTSIDE RECORDS SUMMARY | 2024-06-22 21:56 | XMS_ITS | Encounter Summary ---
Author Organization [facility] Address [facility] [place] [address] Care Team Providers Care Dietetic Technician Registered Name Role Phone Tim Altman MD Primary Care Provider [phone] Vani Waldrop MD Unavailable [phone] Casper Smith MD Unavailable Unavailable Reason for Visit * Reason Comments Imm Inj Synvisc; bilateral k nees Encounter Details Date Type Department Care Team (Late st Contact Info) Description 12/16/2011 10:45 AM CDT Office Visit [facility] - Rheumatology [address] [place] [address] Casper Smith MD DJD (degenerative joint disease) of knee (Primary Dx); PMR (polymyalgia rheumatica) ([facility]) Social History Tobacco Use Types Packs/Day Years [...] Smith MD - 12/16/2011 11:33 AM CDT [facility] Rheumatology [facility] [address] [address] Ultrasound guided viscosupplement injection in knees to minimize pain and to optimize treatment effect by ensuring intraarticular injection and minimizing trauma to adjacent structures. IMP: 1. DJD (degenerative joint disease) of knee OH SONO GUIDE NEEDLE BIOPSY, Hylan (SYNVISC) 8 MG/ML INJ, HYALURONAN DERIV SYNVISC 1 MG INJ, HYALURONAN DERIV SYNVISC 1 MG INJ, OH DRAIN/INJECT LARGE JOINT/BURSA, Hylan (SYNVISC) 8 MG/ML [...] are available on request. Casper Smith MD [phone] Office documented in this encounter Plan of [...] interference in this assay. Test Performed at: [facility] [address] [place], [place] ??[phone] MUKUND GILES DO,MPH Blood specimen (specimen) BLOOD SPECIMEN / Unknown 12/16/2011 12/17/2011 4:19 AM CDT Casper Smith MD LAB - CHEMISTRY CHELI SAAB Performing Organization Address [facility] Co de Phone Number [facility] [address] [place] [address] * (ABNORMAL) HEPATIC FUNCTION PANEL (12/16/2011) [facility] Protein Total 7.1 6.2 - 8.3 g/dL [...] 40 U/L [facility] Comment: Test Performed at: [facility] [id number] [place], [place] ??[phone] MUKUND GILES DO,MPH Blood specimen (specimen) BLOOD SPECIMEN / Unknown 12/16/2011 12/17/2011 4:19 AM CDT Casper Smith MD LAB - CHEMISTRY CHELI SAAB Performing Organization Address City/[facility]/ZIP Co de Phone Number [facility] [address] [place] [address] * (ABNORMAL) CBC W AUTO DIFFERENTIAL (12/16/2011) [facility] White Blood Cell Count 7.5 3.8 - [...] 0.3 % [facility] Comment: Test Performed at: [facility] [id number] [place] [address] ??[phone] MUKUND GILES DO,MPH Blood specimen (specimen) BLOOD SPECIMEN / Unknown 12/16/2011 12/17/2011 4:19 AM CDT Casper Smith MD LAB - HEMATOLOGY ORD ERABLES Performing Organization Address City/State/[facility] Co de Phone Number [facility] [address] [place] [address] documented in this encounter Visit Diagnoses Diagnosis DJD (degenerative joint disease) of knee- Primary Osteoarthrosis, unspecified whether generalized or localized, lower leg PMR (polymyalgia rheumatica) (HCC) Polymyalgia rheumatica documented in this encounter Care Teams Dietetic Technician Registered Relationship Specialty Start Date End Date Tim Altman MD PCP - General 10/18/10 [place] [address] [address] Orthopedic Surgery 05/02/11 [place] [address] [address] Rheumatology 08/20/11 documented as of this encounter
--- OUTSIDE RECORDS SUMMARY | 2024-06-22 21:56 | XMS_ITS | Encounter Summary ---
Author Organization [facility] Address [address] [place], [place] [address] [address] Care Team Providers Care Film Spooler Name Role Phone Tim Altman MD Primary Care Provider [phone] Vani Waldrop MD Unavailable [phone] Reason for Visit * Reason Onset Date Comments Medication Issue 05/16/2011 Encounter Details Date Type Department Care Team (Late st Contact Info) Description 05/16/2011 Telephone [facility] Medical [facility] - Rheumatology [address] [place] [address] Casper Smith MD Medication Issue Social History [...] 3:45 PM CST Informed pt of note [employer] documented in this encounter Plan of Treatment Not on file documented as of this encounter Visit Diagnoses Not on filedocumented in this encounter Care Teams Film Spooler Relationship Specialty Start Date End Date Tim Altman MD PCP - General 10/18/10 [place] [address] [place] [address] Orthopedic Surgery 05/02/11 documented as of this encounter
--- OUTSIDE RECORDS SUMMARY | 2024-06-22 21:56 | XMS_ITS | Encounter Summary ---
Author Organization [facility] Address [address] [place] [address] [place] [address] Care Team Providers Care Testing Director Name Role Phone Tim Altman MD Primary Care Provider [phone] [phone] Vani Waldrop MD Unavailable [phone] Casper Smith MD Unavailable Unavailable Reason for Visit * Reason Onset Date Comments Medication Problem 03/11/2013 Encounter Details Date Type Department Care Team (Late st Contact Info) Description 03/11/2013 Telephone [facility] - Rheumatology [address] [place] [address] Casper Smith MD Medication Problem Social History [...] on filedocumented in this encounter Care Teams Testing Director Relationship Specialty Start Date End Date Tim Altman MD PCP - General 10/18/10 [place] [address] [place] [address] Orthopedic Surgery 05/02/11 [place] [address] [place] [address] Rheumatology 08/20/11 documented as of this encounter
--- OUTSIDE RECORDS SUMMARY | 2024-06-22 21:56 | XMS_ITS | Encounter Summary ---
Author Organization [facility] Address [address] [place] [address] [place] [address] Care Team Providers Care Community Health Counselor Name Role Phone Tim Altman MD Primary Care Provider [phone] Vani Waldrop MD Unavailable [phone] Casper Smith MD Unavailable Unavailable Reason for Visit * Reason Onset Date Comments MEDICATION REFILL 05/25/2012 Encounter Details Date Type Department Care Team (Late st Contact Info) Description 05/25/2012 Refill [facility] - Rheumatology [address] [place] [address] Casper Smith MD MEDICATION REFILL Social History [...] on filedocumented in this encounter Care Teams Community Health Counselor Relationship Specialty Start Date End Date Tim Altman MD PCP - General 10/18/10 [place] [address] [place] [address] Orthopedic Surgery 05/02/11 [place] [address] [place] [address] Rheumatology 08/20/11 documented as of this encounter
--- OUTSIDE RECORDS SUMMARY | 2024-06-22 21:56 | XMS_ITS | Encounter Summary ---
Author Organization [facility] Address [address] [place] [address] [place] [address] Care Team Providers Care Price Accuracy Supervisor Name Role Phone Tim Altman MD Primary Care Provider [phone]- [phone] Vani Waldrop MD Unavailable [phone] Casper Garrido MD Unavailable Unavailable Reason for Visit * Reason Onset Date Comments Medication Check 12/29/2011 Encounter Details Date Type Department Care Team (Late st Contact Info) Description 12/29/2011 Telephone [facility] Medical [facility] - Family Medicine [address] [place] [id number] Casper Garrido MD Medication Check Social History [...] on filedocumented in this encounter Care Teams Price Accuracy Supervisor Relationship Specialty Start Date End Date Tim Altman MD PCP - General 10/18/10 [place] [address] [place] [address] Orthopedic Surgery 05/02/11 [place] [address] [place] [address] Rheumatology 08/20/11 documented as of this encounter
--- OUTSIDE RECORDS SUMMARY | 2024-06-22 21:56 | XMS_ITS | Encounter Summary ---
Author Organization [facility] Address [address] [place] [address] [place] [address] Care Team Providers Care Line Producer Name Role Phone Tim Altman MD Primary Care Provider [phone] Vani Waldrop MD Unavailable [phone] Casper Smith MD Unavailable Unavailable Reason for Visit * Reason Onset Date Comments MEDICATION REFILL 04/29/2013 Encounter Details Date Type Department Care Team (Late st Contact Info) Description 04/29/2013 Refill [facility] - Rheumatology [address] [place] [address] Casper Smith MD MEDICATION REFILL Social History [...] unspecified documented in this encounter Care Teams Line Producer Relationship Specialty Start Date End Date Tim Altman MD PCP - General 10/18/10 [place] [address] [address] Orthopedic Surgery 05/02/11 [place] [address] [address] Rheumatology 08/20/11 documented as of this encounter
--- OUTSIDE RECORDS SUMMARY | 2024-06-22 21:56 | XMS_ITS | Encounter Summary ---
Author Organization [facility] Address [address] [place] [address] [place] [address] Care Team Providers Care Chucking Machine Set Up Operator Name Role Phone Tim Altman MD Primary Care Provider [phone]- [phone] Vani Waldrop MD Unavailable [phone] Casper Smith MD Unavailable Unavailable Reason for Visit * Treatment (Routine) - Closed Specialty Diagnoses / Procedures Referred By Dariela nettles Referred To Contact Infusion Therapy Nurse Diagnoses Rheumatoid arthritis(714.0) ([facility]) Procedures KS INJECTION TOCILIZUMAB 1 MG Casper Smith MD Referral ID Status Reason Start Date Expiration Date Visits Re quested Visits Authorized [id number] Closed 09/07/2013 03/06/2014 1 6 Encounter Details Date Type Department Care Team (Latest Contact Info) Description 11/02/2013 9:51 AM CDT - 11/02/2013 11:59 PM CDT Hospital Encounter [facility] - Rheumatology [address] [place] [address] Casper Smith MD Discharge Disposition: Home or [...] Cox RN - 11/02/2013 10:17 AM CDT DC Rheumatology Post Infusion instructions You have received [...] rash or breathing problems please call your [facility] Rheumatology physician for further instructions. While most problems that occur around the time of an infusion are very mild and not dangerous, they should not be ignored. Thursday through Thursday 9-5 call the office at [phone] After hours or on the weekend call the exchange at [phone] If you have had lab work done [...] you and are glad you have chosen [facility] as your provider. Claudia Cox [...] azaTHIOprine (IMURAN) 50 MG tabletIndications:Rhe umatoid arthritis(714.0) ([facility]) Take 2 Tabs [...] acid (FOLVITE) 1 MG tabletIndications:PMR (polymyalgia rheumatica) ([facility]) Take 2 Tabs by [...] 11/02/2013 10:58 AM CDT [facility] Lexi Ewa [id number] 11/02/2013 Diagnosis: Rheumatoid arthritis [714.0]. Patient questionnaire [...] this encounter Visit Diagnoses Diagnosis Rheumatoid arthritis(714.0) ([facility])- Primary Rheumatoid arthritis documented in this encounter [...] hr documented in this encounter Care Teams Chucking Machine Set Up Operator Relationship Specialty Start Date End Date Tim Altman MD PCP - General 10/18/10 [place] [address] [place] [address] Orthopedic Surgery 05/02/11 [place] [address] [place] [address] Rheumatology 08/20/11 documented as of this encounter
--- OUTSIDE RECORDS SUMMARY | 2024-06-22 21:56 | XMS_ITS | Encounter Summary ---
Author Organization [facility] Address [address] [place] [address] [place] [address] Care Team Providers Care Process Specialist Name Role Phone Tim Altman MD Primary Care Provider [phone] Vani Waldrop MD Unavailable [phone] Casper Smith MD Unavailable Unavailable Reason for Visit * Reason Comments Refill Request Encounter Details Date Type Department Care Team (Late st Contact Info) Description 12/12/2013 Refill [facility] - Rheumatology [address] [place] [address] Casper Smith MD Refill Request Social History [...] on filedocumented in this encounter Care Teams Process Specialist Relationship Specialty Start Date End Date Tim Altman MD PCP - General 10/18/10 [place] [address] [place] [address] Orthopedic Surgery 05/02/11 [place] [address] [place] [address] Rheumatology 08/20/11 documented as of this encounter
--- OUTSIDE RECORDS SUMMARY | 2024-06-22 21:56 | XMS_ITS | Encounter Summary ---
Author Organization [facility] Address [facility] [place] [address] Care Team Providers Care Wire Drawer Name Role Phone Tim Altman MD Primary Care Provider [phone]- [phone] Vani Waldrop MD Unavailable [phone] Casper Smith MD Unavailable Unavailable Reason for Visit * Reason Comments Upper Extremity Problem Encounter Details Date Type Department Care Team (Latest Contact Info) Description 11/15/2012 11:00 AM CDT Procedure visit [facility] - Family Medicine [address] [place], [place] [id number] Polyarthritis ; Unspecified polyarthropathy or polyarthritis, site [...] the diagnostic impression are recorded by the fast food manager under the direction of the attending physician [...] MD directly to discuss this case at [phone] or via [employer] at: [employer]. documented in this encounter Plan of Treatment [...] with a 438 probe at 18mHz or T[employer] Cambridgera[employer] Kin Packs M7 with a L14-6s probe at 14 [...] the diagnostic impression are recorded by the fast food manager under the direction of the attending physician [...] MD directly to discuss this case at [phone] or via [employer] messaging at: [employer]. Procedure Note Casper Smith MD - 11/16/2012 [...] effect the diagnostic impression arerecorded by the fast food manager under the direction of the attendingphysician and [...] MD directly to discuss this case at [phone] [employer] messaging at: [employer]. Casper Smith MD US ORDERABLES * US [...] the diagnostic impression are recorded by the fast food manager under the direction of the attending physician [...] MD directly to discuss this case at [phone] or via [employer] messaging at: [employer]. Procedure Note Casper Smith MD - 11/16/2012 [...] effect the diagnostic impression arerecorded by the fast food manager under the direction of the attendingphysician and [...] MD directly to discuss this case at [phone] [employer] messaging at: [employer]. Casper Smith MD US ORDERABLES documented in this encounter Visit Diagnoses Diagnosis Polyarthritis- Primary Unspecified polyarthropathy or polyarthritis, site unspecified Unspecified polyarthropathy or polyarthritis, site unspecified documented in this encounter Care Teams Wire Drawer Relationship Specialty Start Date End Date Tim Altman MD PCP - General 10/18/10 [place] [address] [place] [address] Orthopedic Surgery 05/02/11 [place] [address] [place] [address] Rheumatology 08/20/11 documented as of this encounter
--- OUTSIDE RECORDS SUMMARY | 2024-06-22 21:56 | XMS_ITS | Encounter Summary ---
Author Organization [facility] Address [address] [place] [address] [place] [address] Care Team Providers Care Combatant Swimmer Name Role Phone Tim Altman MD Primary Care Provider [phone] Vani Waldrop MD Unavailable [phone] Casper Smith MD Unavailable Unavailable Reason for Visit * Reason Onset Date Comments MEDICATION REFILL 11/24/2011 Encounter Details Date Type Department Care Team (Late st Contact Info) Description 11/24/2011 Refill [facility] - Rheumatology [address] [place] [address] Casper Smith MD MEDICATION REFILL Social History [...] rheumatica documented in this encounter Care Teams Combatant Swimmer Relationship Specialty Start Date End Date Tim lAtman MD PCP - General 10/18/10 [place] [address] [address] Orthopedic Surgery 05/02/11 [place] [address] [address] Rheumatology 08/20/11 documented as of this encounter
--- OUTSIDE RECORDS SUMMARY | 2024-06-22 21:56 | XMS_ITS | Encounter Summary ---
Author Organization [facility] Address [address] [place] [address] [place] [address] Care Team Providers Care International Logistics Coordinator Name Role Phone Tim Altman MD Primary Care Provider [phone] Vani Waldrop MD Unavailable [phone] Casper Smith MD Unavailable Unavailable Reason for Visit * Reason Comments Refill Request Encounter Details Date Type Department Care Team (Late st Contact Info) Description 04/28/2013 Refill [facility] - Rheumatology [address] [place] [address] Casper Smith MD Refill Request Social History [...] filedocumented in this encounter Care Teams International Logistics Coordinator Relationship Specialty Start Date End Date Tim Altman MD PCP - General 10/18/10 [place] [address] [place] [address] Orthopedic Surgery 05/02/11 [place] [address] [place] [address] Rheumatology 08/20/11 documented as of this encounter
--- OUTSIDE RECORDS SUMMARY | 2024-06-22 21:56 | XMS_ITS | Encounter Summary ---
Author Organization [facility] Address [address] [place] [address] [place] [address] Care Team Providers Care Ore Dryer Name Role Phone Tim Altman MD Primary Care Provider [phone] Vani Waldrop MD Unavailable [phone] Casper Smith MD Unavailable Unavailable Reason for Visit * Reason Comments Refill Request Encounter Details Date Type Department Care Team (Late st Contact Info) Description 08/03/2012 Refill [facility] - Rheumatology [address] [place] [address] Casper Smith MD Refill Request Social History [...] on filedocumented in this encounter Care Teams Ore Dryer Relationship Specialty Start Date End Date Tim Altman MD PCP - General 10/18/10 [place] [address] [place] [address] Orthopedic Surgery 05/02/11 [place] [address] [place] [address] Rheumatology 08/20/11 documented as of this encounter
--- OUTSIDE RECORDS SUMMARY | 2024-06-22 21:56 | XMS_ITS | Encounter Summary ---
Author Organization [facility] Address [address] [place], [place] [address] [address] Care Team Providers Care Asbestos Siding Installer Name Role Phone Tim Altman MD Primary Care Provider +1- [phone] Vani Waldrop MD Unavailable [phone] Casper Smith MD Unavailable Unavailable Encounter Details Date Type Department Care Team (Late st Contact Info) Description 03/28/2013 Orders Only [facility] Medical [facility] - Rheumatology [address] [place] [address] Casper Smith MD Fibromyalgia ; PMR (polymyalgia [...] PM CDT Narrative Resulting Agency Comment [facility] [address] ??[facility] [phone] Casper Smith MD LAB - CHEMISTRY CHELI [...] PM CDT Narrative Resulting Agency Comment [facility] [place] [id number] [facility] ??[facility] [id number] Casper Smith MD LAB - HEMATOLOGY ORD ERABLES [facility] ACCOUNT BILL documented in this encounter Visit Diagnoses Diagnosis Fibromyalgia- Primary Mylagia and myositis, unspecified PMR (polymyalgia rheumatica) (HCC) Polymyalgia rheumatica documented in this encounter Care Teams Asbestos Siding Installer Relationship Specialty Start Date End Date Tim Altman MD PCP - General 10/18/10 [place] [address] [place] [address] Orthopedic Surgery 05/02/11 [place] [address] [place] [address] Rheumatology 08/20/11 documented as of this encounter
--- OUTSIDE RECORDS SUMMARY | 2024-06-22 21:56 | XMS_ITS | Encounter Summary ---
Author Organization [facility] Address [address] [place] [address] [place] [address] Care Team Providers Care Body Man Name Role Phone Tim Altman MD Primary Care Provider +06-20 [phone] Vani Waldrop MD Unavailable [phone] Casper Smith MD Unavailable Unavailable Reason for Visit * Reason Comments Refill Request Encounter Details Date Type Department Care Team (Late st Contact Info) Description 05/30/2012 Refill [facility] Medical [facility] - Family Medicine [address] [place] [address] Casper Smith MD Refill Request Social History [...] on filedocumented in this encounter Care Teams Body Man Relationship Specialty Start Date End Date Tim Altman MD PCP - General 10/18/10 [place] [address] [place] [phone] Orthopedic Surgery 05/02/11 [place] [address] [place] [address] Rheumatology 08/20/11 documented as of this encounter
--- OUTSIDE RECORDS SUMMARY | 2024-06-22 21:56 | XMS_ITS | Encounter Summary ---
Author Organization [facility] Address [address] [place] [address] [place] [address] Care Team Providers Care General Duty Nurse Name Role Phone Tim Altman MD Primary Care Provider [phone] Vani Waldrop MD Unavailable [phone] Casper Smith MD Unavailable Unavailable Reason for Visit * Reason Onset Date Comments MEDICATION REFILL 01/16/2012 Encounter Details Date Type Department Care Team (Late st Contact Info) Description 01/16/2012 Refill [facility] - Rheumatology [address] [place] [phone] Casper Smith MD MEDICATION REFILL Social History [...] encounter Visit Diagnoses Diagnosis PMR (polymyalgia rheumatica) ([facility])- Primary Polymyalgia rheumatica documented in this encounter Care Teams General Duty Nurse Relationship Specialty Start Date End Date Tim Altman MD PCP - General 10/18/10 [place] [address] [address] Orthopedic Surgery 05/02/11 [place] [address] [address] Rheumatology 08/20/11 documented as of this encounter
--- OUTSIDE RECORDS SUMMARY | 2024-06-22 21:56 | XMS_ITS | Encounter Summary ---
Author Organization [facility] Address [address] [place] [address] [place] [address] Care Team Providers Care Shop Steward Name Role Phone Tim Altman MD Primary Care Provider [phone] Vani Waldrop MD Unavailable [phone] Casper Smith MD Unavailable Unavailable Reason for Visit * Reason Onset Date Comments MEDICATION REFILL 09/08/2011 Encounter Details Date Type Department Care Team (Late st Contact Info) Description 09/08/2011 Refill [facility] - Rheumatology [address] [place] [phone] Casper Smith MD MEDICATION REFILL Social History [...] on filedocumented in this encounter Care Teams Shop Steward Relationship Specialty Start Date End Date Tim Altman MD PCP - General 10/18/10 [place] [address] [place] [phone] Orthopedic Surgery 05/02/11 [place] [address] [place] [address] Rheumatology 08/20/11 documented as of this encounter
--- OUTSIDE RECORDS SUMMARY | 2024-06-22 21:56 | XMS_ITS | Encounter Summary ---
Author Organization [facility] Address [facility] [place] [address] Care Team Providers Care Float Remover Name Role Phone Tim Altman MD Primary Care Provider [phone]- [phone] Vani Waldrop MD Unavailable [phone] Casper Smith MD Unavailable Unavailable Reason for Visit * Reason Comments Imm Inj sapna Euflexxa Right k nee extra bad this week will give Depo 80 mg also after draining fluid Encounter Details Date Type Department Care Team (Late st Contact Info) Description 12/07/2013 2:00 PM CDT Office Visit [facility] - Rheumatology [address] [place] [address] Casper Smith MD DJD (degenerative joint [...] Smith MD - 12/07/2013 2:23 PM CDT [address] [address] Ultrasound guided viscosupplement injection in [...] for optimal needle visualization and patient anatomy Mixer Operator Hot Metal views of the knee were reviewed prior to injection to plan the injection site and route. Findings: F [id number] knee effusion right knee with degenerative change, [...] Knee documented in this encounter Care Teams Float Remover Relationship Specialty Start Date End Date Tim Altman MD PCP - General 10/18/10 [place] [address] [place] [address] Orthopedic Surgery 05/02/11 [place] [address] [place] [phone] [facility] 08/20/11 documented as of this encounter
--- OUTSIDE RECORDS SUMMARY | 2024-06-22 21:56 | XMS_ITS | Encounter Summary ---
Author Organization [facility] Address [facility] [place] [address] Care Team Providers Care Button Sewer Hand Name Role Phone Tim Altman MD Primary Care Provider [phone]- [phone] Vani Waldrop MD Unavailable [phone] Casper Smith MD Unavailable Unavailable Reason for Visit * Reason Comments Rheumatoid Arthritis follow up. Had reac tion to [facility] today. Encounter Details Date Type Department Care Team (Late st Contact Info) Description 11/02/2013 12:30 PM CDT Office Visit [facility] - Rheumatology [address] [place] [address] Casper Smith MD Rheumatoid arthritis (HCC) [...] MOUTH IN THE MORNING TWO IN THE [id number] Tab 10 ??? gabapentin (NEURONTIN) 600 MG [...] prosthesis, splint/brace, walker and wheelchair HEENT: [place] , cerumen , anisocoria, retinal, hemorrhage, thrush, [...] abn 1st [facility], Flexor tend, Finger Deformity: Mcgregor neck/ Boutonniere/ Mallet finger, Ulnar deviation, Dupuytren's, [...] medications documented in this encounter Care Teams Button Sewer Hand Relationship Specialty Start Date End Date Tim Altman MD PCP - General 10/18/10 [place] [address] [place] [phone] Orthopedic Surgery 05/02/11 [place] [address] [place] [address] Rheumatology 08/20/11 documented as of this encounter
--- OUTSIDE RECORDS SUMMARY | 2024-06-22 21:56 | XMS_ITS | Encounter Summary ---
Author Organization [facility] Address [address] [place] [address] [place] [address] Care Team Providers Care Impregnator Carbon Products Name Role Phone Tim Altman MD Primary Care Provider [phone] [phone] Vani Waldrop MD Unavailable [phone] Casper Smith MD Unavailable Unavailable Reason for Visit * Reason Comments Refill Request Encounter Details Date Type Department Care Team (Late st Contact Info) Description 11/24/2013 Refill [facility] - Rheumatology [address] [place] [address] Casper Smith MD Refill Request Social History [...] on filedocumented in this encounter Care Teams Impregnator Carbon Products Relationship Specialty Start Date End Date Tim Altman MD PCP - General 10/18/10 [place] [address] [place] [phone] Orthopedic Surgery 05/02/11 [place] [address] [place] [address] Rheumatology 08/20/11 documented as of this encounter
--- OUTSIDE RECORDS SUMMARY | 2024-06-22 21:56 | XMS_ITS | Encounter Summary ---
Author Organization [facility] Address [address] [place] [address] [place] [address] Care Team Providers Care Cnc Operator Name Role Phone Tim Altman MD Primary Care Provider +06-20 [phone] Vani Waldrop MD Unavailable [phone] Reason for Visit * Reason Onset Date Comments MEDICATION REFILL 07/11/2011 Encounter Details Date Type Department Care Team (Late st Contact Info) Description 07/11/2011 Refill [facility] Medical [facility] - Rheumatology [address] [place] [address] Casper Smith MD MEDICATION REFILL Social History [...] unspecified documented in this encounter Care Teams Cnc Operator Relationship Specialty Start Date End Date iTm Altman MD PCP - General 10/18/10 [place] [address] [place] [address] Orthopedic Surgery 05/02/11 documented as of this encounter
--- OUTSIDE RECORDS SUMMARY | 2024-06-22 21:56 | XMS_ITS | Encounter Summary ---
Author Organization [facility] Address [facility] [place] [address] Care Team Providers Care Circulator Name Role Phone Tim Altman MD Primary Care Provider [phone]- [phone] Vani Waldrop MD Unavailable Casper Garrido MD Unavailable Unavailable Reason for Visit * Reason Onset Date Comments Pain Knee 05/25/2012 Encounter Details Date Type Department Care Team (Late st Contact Info) Description 05/25/2012 Telephone [facility] Medical [facility] - Rheumatology [address] [place] [address] Casper Garrido MD Pain Knee Social History [...] to schedule an appt if no better. MAN * Telephone Encounter - Yeny Oro MA - 05/25/2012 8:56 AM CST Having knee pain in left knee and a knot on the left side , the chiropractor told her to call dr garrido , she wants to know if she can increase one of the pain pills before she comes in ,her cell ph [phone] MAN * Telephone Encounter - Hannah Edmondson - 05/25/2012 8:43 AM CST Having knee pain in left knee and a knot on the left side , the chiropractor told her to call dr garrido , she wants to know if she can increase one of the pain pills before she comes in ,her cell ph [phone] MAN documented in this encounter Plan of Treatment Not on file documented as of this encounter Visit Diagnoses Not on filedocumented in this encounter Care Teams Circulator Relationship Specialty Start Date End Date Tim Altman MD PCP - General 10/18/10 [place] [address] [place] [phone] Orthopedic Surgery 05/02/11 [place] [address] [place] [address] Rheumatology 08/20/11 documented as of this encounter
--- OUTSIDE RECORDS SUMMARY | 2024-06-22 21:56 | XMS_ITS | Encounter Summary ---
Author Organization [facility] Address [facility] [place] [address] Care Team Providers Care Griddle Attendant Name Role Phone Tim Altman MD Primary Care Provider [phone] Vani Waldrop MD Unavailable [phone] Casper Smith MD Unavailable Unavailable Reason for Visit * Reason Onset Date Comments Swelling Knee 12/18/2011 Encounter Details Date Type Department Care Team (Late st Contact Info) Description 12/18/2011 Telephone [facility] Medical [facility] - Rheumatology [address] [place] [phone] Casper Smith MD Swelling Knee Social History [...] on filedocumented in this encounter Care Teams Griddle Attendant Relationship Specialty Start Date End Date Tim Altman MD PCP - General 10/18/10 [place] [address] [place] [address] Orthopedic Surgery 05/02/11 [place] [address] [place] [address] Rheumatology 08/20/11 documented as of this encounter
--- OUTSIDE RECORDS SUMMARY | 2024-06-22 21:56 | XMS_ITS | Encounter Summary ---
Author Organization [facility] Address [address] [place] [address] [place] [address] Care Team Providers Care Supervisor [employer] Name Role Phone Tim Altman MD Primary Care Provider +06-20 [phone] Vani Waldrop MD Unavailable [phone] Casper Smith MD Unavailable Unavailable Reason for Visit * Reason Comments Refill Request Encounter Details Date Type Department Care Team (Late st Contact Info) Description 09/03/2013 Refill [facility] - Rheumatology [address] [place] [address] Casper Smith MD Refill Request Social History [...] filedocumented in this encounter Care Teams Supervisor [employer] Relationship Specialty Start Date End Date Tim Altman MD PCP - General 10/18/10 [place] [address] [place] [phone] Orthopedic Surgery 05/02/11 [place] [address] [place] [address] Rheumatology 08/20/11 documented as of this encounter
--- OUTSIDE RECORDS SUMMARY | 2024-06-22 21:56 | XMS_ITS | Encounter Summary ---
Author Organization [facility] Address [address] [place], [place] [address] [address] Care Team Providers Care Web Master Name Role Phone Tim Altman MD Primary Care Provider [phone] Vani Waldrop MD Unavailable Casper Smith MD Unavailable Unavailable Encounter Details Date Type Department Care Team (Late st Contact Info) Description 09/28/2013 Orders Only [facility] - Rheumatology [address] [place] [address] [phone] Claudia Cox, ACETONE BUTTON PASTER-STOVE CLEANER [address] [phone] Rheumatoid arthritis (HCC) Social History Tobacco Use [...] arthritis documented in this encounter Care Teams Web Master Relationship Specialty Start Date End Date Tim Altman MD PCP - General 10/18/10 [place] [address] [phone] Orthopedic Surgery 05/02/11 [place] [address] [place] [address] [facility] 08/20/11 documented as of this encounter
--- OUTSIDE RECORDS SUMMARY | 2024-06-22 21:56 | XMS_ITS | Encounter Summary ---
Author Organization [facility] Address [address] [place] [address] [place] [address] Care Team Providers Care Fabricator Foam Rubber Name Role Phone Tim Altman MD Primary Care Provider [phone] Vani Waldrop MD Unavailable [phone] Casper Smith MD Unavailable Unavailable Reason for Visit * Reason Onset Date Comments MEDICATION REFILL 11/28/2011 Encounter Details Date Type Department Care Team (Late st Contact Info) Description 11/28/2011 Refill [facility] - Rheumatology [address] [place] [phone] Casper Smith MD MEDICATION REFILL Social History [...] Primary documented in this encounter Care Teams Fabricator Foam Rubber Relationship Specialty Start Date End Date Tim Altman MD PCP - General 10/18/10 [place] [address] [place] [phone] Orthopedic Surgery 05/02/11 [place] [address] [address] Rheumatology 08/20/11 documented as of this encounter
--- OUTSIDE RECORDS SUMMARY | 2024-06-22 21:56 | XMS_ITS | Encounter Summary ---
Author Organization [facility] Address [facility] [place] [address] Care Team Providers Care Broaching Machine Repairer Name Role Phone Tim Altman MD Primary Care Provider +[phone]- [phone] Vani Waldrop MD Unavailable [phone] Casper Smith MD Unavailable Unavailable Reason for Visit * Reason Comments Imm Inj bilateral euflexxa Pain Knee flared bilaterally w ith large swelling Encounter Details Date Type Department Care Team (Late st Contact Info) Description 12/14/2013 12:15 PM CDT Office Visit [facility] - Rheumatology [address] [place] [address] Casper Smith MD DJD (degenerative joint [...] Smith MD - 12/14/2013 5:56 PM CDT [address] [address] Ultrasound guided viscosupplement injection in [...] for optimal needle visualization and patient anatomy Global Technical Writer views of the knee were reviewed prior [...] comments documented in this encounter Care Teams Broaching Machine Repairer Relationship Specialty Start Date End Date Tim Altman MD PCP - General 10/18/10 [place] [address] [place] [address] Orthopedic Surgery 05/02/11 [place] [address] [address] [place] [phone] Rheumatology 08/20/11 documented as of this encounter
--- OUTSIDE RECORDS SUMMARY | 2024-06-22 21:56 | XMS_ITS | Encounter Summary ---
Author Organization [facility] Address [address] [place] [address] [place] [address] Care Team Providers Care Sunday School Missionary Name Role Phone Tim Altman MD Primary Care Provider [phone]- [phone] Vani Waldrop MD Unavailable [phone] Casper Smith MD Unavailable Unavailable Reason for Visit * Reason Onset Date Comments Medication Problem 08/27/2011 Encounter Details Date Type Department Care Team (Late st Contact Info) Description 08/27/2011 Telephone [facility] - Rheumatology [address] [place] [phone] Casper Smith MD Medication Problem Social History [...] on filedocumented in this encounter Care Teams Sunday School Missionary Relationship Specialty Start Date End Date Tim Altman MD PCP - General 10/18/10 [place] [address] [place] [phone] Orthopedic Surgery 05/02/11 [place] [address] [place] [phone] Rheumatology 08/20/11 documented as of this encounter
--- OUTSIDE RECORDS SUMMARY | 2024-06-22 21:56 | XMS_ITS | Encounter Summary ---
Author Organization [facility] Address [address] [place] [address] [place] [address] Care Team Providers Care Lab Systems Analyst Name Role Phone Tim Altman MD Primary Care Provider +06-20 [phone] Vani Waldrop MD Unavailable [phone] Casper Smith MD Unavailable Unavailable Reason for Visit * Reason Comments Refill Request Encounter Details Date Type Department Care Team (Late st Contact Info) Description 01/16/2014 Refill [facility] - Rheumatology [address] [place] [address] Casper Smith MD Refill Request Social History [...] on filedocumented in this encounter Care Teams Lab Systems Analyst Relationship Specialty Start Date End Date Tim Altman MD PCP - General 10/18/10 [place] [address] [place] [phone] Orthopedic Surgery 05/02/11 [place] [address] [place] [address] Rheumatology 08/20/11 documented as of this encounter
--- OUTSIDE RECORDS SUMMARY | 2024-06-22 21:56 | XMS_ITS | Encounter Summary ---
Author Organization [facility] Address [facility] [place] [address] Care Team Providers Care Commercial Glazier Name Role Phone Tim Altman MD Primary Care Provider +1- [phone] Vani Waldrop MD Unavailable [phone] Casper Smith MD Unavailable Unavailable Reason for Visit * Reason Comments Polymyalgia Rheumatica Fibromyalgia Medication Issue New Insurance wont p ay for Remicade. Pt hasnt had infusion since April & is in pain. Encounter Details Date Type Department Care Team (Late st Contact Info) Description 07/04/2013 9:00 AM LINE BUILDER Office Visit [facility] Medical [facility] - Rheumatology [address] [place] [address] Casper Smith MD PMR (polymyalgia rheumatica) [...] Comments Blood Pressure 116/78 07/04/2013 9:21 AM LINE BUILDER Pulse 88 07/04/2013 9:21 AM LINE BUILDER Temperature - - Respiratory Rate - - Oxygen Saturation - - Inhaled Oxygen Concentration - - Weight 107 kg (235 lb 12.8 oz) 07/04/2013 9:21 A M LINE BUILDER Height 165.1 cm (5' 5 ) 07/04/2013 9:21 AM LINE BUILDER Body Mass Index 39.24 07/04/2013 9:21 AM LINE BUILDER documented in this encounter Progress Notes * [...] crutches, prosthesis, splint/brace, walker and wheelchair HEENT: [place] , cerumen , anisocoria, retinal, hemorrhage, thrush, [...] abn 1st CMC, Flexor tend, Finger Deformity: [place] neck/ Boutonniere/ Mallet finger, Ulnar deviation, Dupuytren's, [...] Dr Cathie Wilkerson NeuroOpth, Dr Reaves Neurology [facility] Rheumat[place] [address] Ultrasound apparatus: [employer] MyLab5 with a [id number] or [id number] probe [...] with any questions Casper Smith MD Office [phone] Back line [phone] BUILDER documented in this encounter Plan of Treatment Not on file documented as of this encounter Procedures Procedure Name Priority Date/Time Associated Diagnosis Comments RHEUMATOID FACTOR BLOOD QUANTITATIVE Routine 07/05/2013 3:00 PM LINE BUILDER Hand pain C-REACTIVE PROTEIN Routine 07/05/2013 3: 00 PM LINE BUILDER PMR (polymyalgia rheumatica) (HCC) CBC W AUTO DIFFERENTIAL Routine 07/05/2013 3:00 PM LINE BUILDER High risk medications (not anticoagulants) long-term use COMPREHENSIVE METABOLIC PANEL Routine 07/05/2013 3:00 PM LINE BUILDER High risk medications (not anticoagulants) long-term use documented in this encounter Results * C-REACTIVE PROTEIN (07/05/2013 3:00 PM LINE BUILDER) Pathologist [facility] C-Reactive Protein 0.18 <0.80 mg/dL [facility] Comment: Please be advised that patients taking Carboxypenicillins may exhibit falsely decreased C-Reactive Protein levels due to an analytical interference in this assay. Test Performed at: [facility] [place], [place] ??[phone] MUKUND GILES DO,MPH Blood specimen (specimen) BLOOD SPECIMEN / Unknown 07/05/2013 4:29 AM LINE BUILDER Casper Smith MD LAB - CHEMISTRY CHELI SAAB Performing Organization Address [facility] de Phone Number [facility] [phone] [place] [phone] * RHEUMATOID FACTOR BLOOD QUANTITATIVE (07/05/2013 3:00 PM LINE BUILDER) [facility] Rheumatoid Factor 12 <14 IU/mL [facility] Comment: Test Performed at: [facility] [address] [place], [place] ??[address] MUKUND GILES DO,MPH Blood specimen (specimen) BLOOD SPECIMEN / Unknown 07/05/2013 4:29 AM LINE BUILDER Casper Smith MD LAB - CHEMISTRY CHELI SAAB Performing Organization Address [facility] Co de Phone Number [facility] [phone] [place] [address] * (ABNORMAL) COMPREHENSIVE METABOLIC PANEL (07/05/2013 3:00 PM LINE BUILDER) Pathologist [facility] Glucose 89 65 - 99 mg/dL [facility] Comment: ? Fasting reference interval BUN 19 7 - 25 mg/dL [facility] Creatinine 0.84 0.50 - 1.05 mg/dL [facility] Comment: For patients >49 years of age, the reference limit for Creatinine is approximately 13% higher for people identified as -Afghan. eGFR by MDRD 77 > OR = [...] 29 U/L [facility] Comment: Test Performed at: [facility] ??[phone] MUKUND GILES DO,MPH Blood specimen (specimen) BLOOD SPECIMEN / Unknown 07/05/2013 4:29 AM LINE BUILDER Casper Smith MD LAB - CHEMISTRY CHELI [facility] Organization Address City/State/ZIP Co de Phone Number [facility] [address] [place] [address] * (ABNORMAL) CBC W AUTO DIFFERENTIAL (07/05/2013 3:00 PM LINE BUILDER) White Blood Cell Count 5.1 3.8 - [...] 0.5 % [facility] Comment: Test Performed at: [facility] [place] [address] [place], [place] ??[address] MUKUND GILES DO,MPH Blood specimen (specimen) BLOOD SPECIMEN / Unknown 07/05/2013 4:29 AM LINE BUILDER Casper Smith MD LAB - HEMATOLOGY ORD ERABLES [employer] [address] [place] [address] * XR KNEE 1 OR 2 VW RIGHT (07/04/2013 4:02 PM LINE BUILDER) Anatomical Region Laterality Modality Lower Extremity Other Narrative 07/04/2013 4:02 PM LINE BUILDER Casper Smith MD ? 07/04/2013 ??4:02 PM [...] leg documented in this encounter Care Teams Commercial Glazier Relationship Specialty Start Date End Date Tim Altman MD PCP - General 10/18/10 [place] [address] [place] [phone] Orthopedic Surgery 05/02/11 [place] [address] [place] [address] Rheumatology 08/20/11 documented as of this encounter
--- OUTSIDE RECORDS SUMMARY | 2024-06-22 21:56 | XMS_ITS | Encounter Summary ---
Author Organization [facility] Address [address] [place] [address] [place] [address] Care Team Providers Care Data Modeler Name Role Phone Tim Altman MD Primary Care Provider [phone] Vani Waldrop MD Unavailable [phone] Casper Smith MD Unavailable Unavailable Reason for Visit * Reason Comments Refill Request Encounter Details Date Type Department Care Team (Late st Contact Info) Description 09/22/2013 Refill [facility] - Rheumatology [address] [place] [address] Casper Smith MD Refill Request Social History [...] on filedocumented in this encounter Care Teams Data Modeler Relationship Specialty Start Date End Date Tim Altman MD PCP - General 10/18/10 [place] [address] [place] [address] Orthopedic Surgery 05/02/11 [place] [address] [place] [address] Rheumatology 08/20/11 documented as of this encounter
--- OUTSIDE RECORDS SUMMARY | 2024-06-22 21:56 | XMS_ITS | Encounter Summary ---
Author Organization [facility] Address [facility]3 [facility] [place] [address] Care Team Providers Care Sheet Writer Name Role Phone Tim Altman MD Primary Care Provider [phone]- [phone] Vani Waldrop MD Unavailable [phone] Casper Smith MD Unavailable Unavailable Reason for Visit * Reason Comments Pain Knee Encounter Details Date Type Department Care Team (Latest Contact Info) Description 07/04/2013 9:00 AM LOCAL COMPANY TANKER DRIVER Procedure visit [facility] - Family Medicine [address] [place] [address] DJD (degenerative joint disease) of knee Social [...] VW RIGHT Mild medial joint space narrowing L COMPANY TANKER DRIVER documented in this encounter Plan of Treatment Not on file documented as of this encounter Procedures Procedure Name Priority Date/Time Associated Diagnosis Comments XR KNEE RIGHT 2VW OR LESS Routine 07/04/2013 4:02 PM LOCAL COMPANY TANKER DRIVER DJD (degenerative joint disease) of knee documented in this encounter Results * XR KNEE 1 OR 2 VW RIGHT (07/04/2013 4:02 PM LOCAL COMPANY TANKER DRIVER) Anatomical Region Laterality Modality Lower Extremity Other Narrative 07/04/2013 4:02 PM LOCAL COMPANY TANKER DRIVER Casper Smith MD ? 07/04/2013 ??4:02 PM Mild medial joint space narrowing Procedure Note Casper Smith MD - 07/04/2013 4:02 PM CST Mild medial joint space narrowing Casper Smith MD DIAGNOSTIC IMAGING O R[facility]LES documented in this encounter Visit Diagnoses Diagnosis DJD (degenerative joint disease) of knee Osteoarthrosis, unspecified whether generalized or localized, lower leg documented in this encounter Care Teams Sheet Writer Relationship Specialty Start Date End Date Tim Altman MD PCP - General 10/18/10 [place] [address] [place] [address] Orthopedic Surgery 05/02/11 [place] [address] [place] [address] Rheumatology 08/20/11 documented as of this encounter
--- OUTSIDE RECORDS SUMMARY | 2024-06-22 21:56 | XMS_ITS | Encounter Summary ---
Author Organization [facility] Address [address] [place] [address] [place] [address] Care Team Providers Care Talent Acquisition Associate Name Role Phone Tim Altman MD Primary Care Provider [phone]- [phone] Vani Waldrop MD Unavailable [phone] Reason for Visit * Reason Onset Date Comments Medication Issue 05/16/2011 GABAPENTIN Encounter Details Date Type Department Care Team (Late st Contact Info) Description 05/16/2011 Telephone [facility] Medical [facility] - Family Medicine [address] [place] [address] Casper Smith MD Medication Issue (GABAPENTIN) Social [...] Lisa Reece MA - 05/16/2011 3:38 PM JUICE SCALEMAN Order for gabapentin sent to pharmacy. Ok to take 1 tab am and 2 tabs pm. E SCALEMAN * Telephone Encounter - Eneida Nixon MA - 05/16/2011 1:35 PM CST Patient states: called in this morning. RE: Gabapentin. States: Needs to take 1 in the a.m. , and 2at HS. States can't function, if she doesn't take 1 in the morning. Call patient. E SCALEMAN documented in this encounter Plan of Treatment Not on file documented as of this encounter Visit Diagnoses Diagnosis Insomnia- Primary Insomnia, unspecified documented in this encounter Care Teams Talent Acquisition Associate Relationship Specialty Start Date End Date Tim Altman MD PCP - General 10/18/10 [place] [address] [place] [address] Orthopedic Surgery 05/02/11 documented as of this encounter
--- OUTSIDE RECORDS SUMMARY | 2024-06-22 21:56 | XMS_ITS | Encounter Summary ---
Author Organization [facility] Address [facility] [place] [address] Care Team Providers Care Chief Nursing Executive Name Role Phone Tim Altman MD Primary Care Provider [phone] Vani Waldrop MD Unavailable [phone] Casper Smith MD Unavailable Unavailable Reason for Visit * Reason Comments Refill Request Encounter Details Date Type Department Care Team (Late st Contact Info) Description 05/30/2013 Refill [facility] Medical [facility] - Family Medicine [address] [place] [address] Casper Smith MD Refill Request Social History [...] filedocumented in this encounter Care Teams Chief Nursing Executive Relationship Specialty Start Date End Date Tim Altman MD PCP - General 10/18/10 [place] [address] [place] [address] Orthopedic Surgery 05/02/11 [place] [address] [place] [address] Rheumatology 08/20/11 documented as of this encounter
--- OUTSIDE RECORDS SUMMARY | 2024-06-22 21:56 | XMS_ITS | Encounter Summary ---
Author Organization [facility] Address [address] [place], [place] [address] [address] Care Team Providers Care Team Coordinator Name Role Phone Tim Altman MD Primary Care Provider [phone] Vani Waldrop MD Unavailable [phone] Casper Smith MD Unavailable Unavailable Encounter Details Date Type Department Care Team (Late st Contact Info) Description 03/14/2013 Orders Only [facility] Medical [facility] - Rheumatology [address] [place] [address] Haylee Plummer RN Polymyalgia rheumatica (HCC) Social [...] rheumatica documented in this encounter Care Teams Team Coordinator Relationship Specialty Start Date End Date Tim Altman MD PCP - General 10/18/10 [place] [address] [phone] Orthopedic Surgery 05/02/11 [place] [address] [place] [address] Rheumatology 08/20/11 documented as of this encounter
--- OUTSIDE RECORDS SUMMARY | 2024-06-22 21:56 | XMS_ITS | Encounter Summary ---
Author Organization [facility] Address [facility] [place] [address] Care Team Providers Care Tractor Drill Operator Name Role Phone Tim Altman MD Primary Care Provider [phone] Vani Waldrop MD Unavailable [phone] Casper Smith MD Unavailable Unavailable Reason for Visit * Reason Onset Date Comments Lower Extremity Problem 01/09/2012 above th e knee where injection given, has a severe burning sensation Encounter Details Date Type Department Care Team (Late st Contact Info) Description 01/09/2012 Telephone [facility] - Family Medicine [address] [place] [address] Casper Smith MD Lower Extremity Problem [...] on filedocumented in this encounter Care Teams Tractor Drill Operator Relationship Specialty Start Date End Date Tim Altman MD PCP - General 10/18/10 [place] [address] [address] [place] [address] Orthopedic Surgery 05/02/11 [place] [address] [address] [place] [address] Rheumatology 08/20/11 documented as of this encounter
--- OUTSIDE RECORDS SUMMARY | 2024-06-22 21:56 | XMS_ITS | Encounter Summary ---
Author Organization [facility] Address [address] [place], [place] [address] [address] Care Team Providers Care Printing Sign Machine Operator Name Role Phone Tim Altman MD Primary Care Provider [phone]- [phone] Vani Waldrop MD Unavailable [phone] Casper Smith MD Unavailable Unavailable Reason for Visit * Reason Comments Polymyalgia Rheumatica Pain Knee bilateral Encounter Details Date Type Department Care Team (Late st Contact Info) Description 02/28/2013 10:00 AM CDT Office Visit [facility] - Rheumatology [address] [place] [address] Casper Smith MD PMR (polymyalgia rheumatica) [...] daily. 30 Tab 12 ??? nystatin (MYCOSTATIN) 457890 UNIT/ML suspension Active Take 5 mL by [...] crutches, prosthesis, splint/brace, walker and wheelchair HEENT: [place] , cerumen , anisocoria, retinal, hemorrhage, thrush, [...] abn 1st CMC, Flexor tend, Finger Deformity: [place] neck/ Boutonniere/ Mallet finger, Ulnar deviation, Dupuytren's, [...] TEST PPD - POINT OF CARE ??? CA DRAIN/INJECT LARGE JOINT/BURSA ??? predniSONE (DELTASONE) 10 [...] Dr Cathie Wilkerson NeuroOpth, Dr Reaves Neurology [facility] Rheumatology Ultrasound Clinic [facility] [address] [place] [address] Ultrasound apparatus: [employer] MyLab5 with a [id number] or [id number] probe [...] with any questions Casper Smith MD Office [phone] Back line [phone] * Yeny Oro MA - 02/28/2013 11:53 [...] COMPREHENSIVE METABOLIC PANEL (02/28/2013 10:30 AM CDT) [facility] Glucose 86 65 - 99 mg/dL [facility] [...] PM CDT Narrative Resulting Agency Comment [facility] [address] ??[facility] [id number] Casper Smith MD LAB - CHEMISTRY CHELI [...] PM CDT Narrative Resulting Agency Comment [facility] [place] [id number] [facility] ??[facility] [id number] Casper Smith MD LAB - HEMATOLOGY ORD ERABLES [facility] ACCOUNT BILL * (ABNORMAL) C-REACTIVE PROTEIN (02/28/2013 10:30 AM CDT) C-Reactive Protein 5.1(H) 0.0 - 4.9 mg/L [facility] ACCOUNT BILL Blood specimen (specimen) BLOOD SPECIMEN / Unknown 02/28/2013 10:30 AM CDT 02/28/2013 1:00 PM CDT Narrative Resulting Agency Comment [facility] [place] [address] [facility] ??[facility] [id number] Casper Smith MD LAB - CHEMISTRY CHELI [...] tuberculosis documented in this encounter Care Teams Printing Sign Machine Operator Relationship Specialty Start Date End Date Tim Altman MD PCP - General 10/18/10 [place] [address] [place] [address] Orthopedic Surgery 05/02/11 [place] [address] [place] [address] Rheumatology 08/20/11 documented as of this encounter
--- OUTSIDE RECORDS SUMMARY | 2024-06-22 21:56 | XMS_ITS | Encounter Summary ---
Author Organization [facility] Address [facility] [place] [address] Care Team Providers Care Continuity Director Name Role Phone Tim Altman MD Primary Care Provider [phone]- [phone] Vani Waldrop MD Unavailable [phone] Casper Smith MD Unavailable Unavailable Reason for Visit * Reason Comments Follow-up DJD knees. Pt says S yjocelinevisc wasnt helpful. Pain Elbow left Encounter Details Date Type Department Care Team (Late st Contact Info) Description 06/16/2012 11:45 AM CENTRIFUGAL SUPERVISOR Office Visit [facility] Medical [facility] - Rheumatology [address] [place] [address] Casper Smith MD High risk medications [...] Comments Blood Pressure 128/72 06/16/2012 12:51 PM CENTRIFUGAL SUPERVISOR Pulse 96 06/16/2012 12:51 PM CENTRIFUGAL SUPERVISOR Temperature - - Respiratory Rate - - Oxygen Saturation - - Inhaled Oxygen Concentration - - Weight 105 kg (231 lb 6.4 oz) 06/16/2012 12:51 P M CENTRIFUGAL SUPERVISOR Height 162.6 cm (5' 4 ) 06/16/2012 12:51 PM CENTRIFUGAL SUPERVISOR Body Mass Index 39.72 06/16/2012 12:51 PM CENTRIFUGAL SUPERVISOR documented in this encounter Progress Notes * Yeny Oro MA - 06/17/2012 3:23 PM CSTQuick Note: Results sent via [employer] RIFUGAL SUPERVISOR * Casper Smith MD - 06/16/2012 1:02 [...] MOUTH IN THE MORNING TWO IN THE [id number] Tab 11 ??? folic acid (FOLVITE) 1 [...] daily. 30 Tab 6 ??? nystatin (MYCOSTATIN) 799732 UNIT/ML suspension Take 5 mL by mouth [...] crutches, prosthesis, splint/brace, walker and wheelchair HEENT: [place] , cerumen , anisocoria, retinal, hemorrhage, thrush, [...] abn 1st CMC, Flexor tend, Finger Deformity: [place] neck/ Boutonniere/ Mallet finger, Ulnar deviation, Dupuytren's, [...] Dr Cathie Wilkerson NeuroOpth, Dr Reaves Neurology RIFUGAL SUPERVISOR documented in this encounter Miscellaneous Notes * Addendum Note - Casper Smith MD - 06/16/2012 1:16 PM CSTAddended by: CASPER SMITH on: 06/16/2012 01:16 PM Modules accepted: Orders, Level of Service RIFUGAL SUPERVISOR documented in this encounter Plan of Treatment Not on file documented as of this encounter Procedures Procedure Name Priority Date/Time Associated Diagnosis Comments CBC W AUTO DIFFERENTIAL Routine 06/16/2012 1:25 PM CENTRIFUGAL SUPERVISOR High risk medications (not anticoagulants) long-term use C-REACTIVE PROTEIN Routine 06/16/2012 1: 22 PM CENTRIFUGAL SUPERVISOR PMR (polymyalgia rheumatica) (HCC) COMPREHENSIVE METABOLIC PANEL Routine 06/16/2012 1:22 PM CENTRIFUGAL SUPERVISOR High risk medications (not anticoagulants) long-term use documented in this encounter Results * (ABNORMAL) CBC W AUTO DIFFERENTIAL (06/16/2012 1:25 PM CENTRIFUGAL SUPERVISOR) WBC 6.5 4.0 - 10.5 x10E3/uL [facility] [...] BLOOD SPECIMEN / Unknown 06/16/2012 1:25 PM CENTRIFUGAL SUPERVISOR 06/16/2012 6:26 PM CENTRIFUGAL SUPERVISOR Narrative Resulting Agency Comment [facility] [address] ??[facility] [phone] Casper Smith MD LAB - HEMATOLOGY ORD ERABLES [facility] ACCOUNT BILL * (ABNORMAL) COMPREHENSIVE METABOLIC PANEL (06/16/2012 1:22 PM CENTRIFUGAL SUPERVISOR) Glucose 87 65 - 99 mg/dL [facility] [...] BLOOD SPECIMEN / Unknown 06/16/2012 1:22 PM CENTRIFUGAL SUPERVISOR 06/16/2012 6:26 PM CENTRIFUGAL SUPERVISOR Narrative Resulting Agency Comment [facility] [address] ??[facility] [id number] Casper Smith MD LAB - CHEMISTRY CHELI SAAB Performing Organization Address [facility] de Phone Number [facility] ACCOUNT BILL * C-REACTIVE PROTEIN (06/16/2012 1:22 PM CENTRIFUGAL SUPERVISOR) C-Reactive Protein 3.0 0.0 - 4.9 mg/L [facility] ACCOUNT BILL Blood specimen (specimen) BLOOD SPECIMEN / Unknown 06/16/2012 1:22 PM CENTRIFUGAL SUPERVISOR 06/16/2012 6:26 PM CENTRIFUGAL SUPERVISOR Narrative Resulting Agency Comment [facility] [place] [id number] [facility] ??[facility] [id number] Casper Smith MD LAB - CHEMISTRY CHELI SAAB Performing Organization Address City/[facility]/ZIP Co de Phone Number [facility] ACCOUNT BILL documented in this encounter Visit Diagnoses Diagnosis High risk medications (not anticoagulants) long-term use- Primary Encounter for long-term (current) use of other medications Fibromyalgia Mylagia and myositis, unspecified PMR (polymyalgia rheumatica) (HCC) Polymyalgia rheumatica Elbow pain Pain in joint, upper arm RLS (restless legs syndrome) Restless legs syndrome (RLS) documented in this encounter Care Teams Continuity Director Relationship Specialty Start Date End Date Tim Altman MD PCP - General 10/18/10 [place] [address] [place] [address] Orthopedic Surgery 05/02/11 [place] [address] [place] [address] Rheumatology 08/20/11 documented as of this encounter
--- OUTSIDE RECORDS SUMMARY | 2024-06-22 21:56 | XMS_ITS | Encounter Summary ---
Author Organization [facility] Address [address] [place] [address] [place] [address] Care Team Providers Care Reception Manager Name Role Phone Tim Altman MD Primary Care Provider [phone] Vani Waldrop MD Unavailable [phone] Casper Garrido MD Unavailable Unavailable Reason for Visit * Reason Onset Date Comments MEDICATION REFILL 10/20/2011 Prednisone Encounter Details Date Type Department Care Team (Late st Contact Info) Description 10/20/2011 Refill [facility] - Rheumatology [address] [place] [address] [phone] Casper Garrido MD MEDICATION REFILL (Prednisone) Social [...] on filedocumented in this encounter Care Teams Reception Manager Relationship Specialty Start Date End Date Tim Altman MD PCP - General 10/18/10 [place] [address] [place] [address] Orthopedic Surgery 05/02/11 [place] [address] [address] [place] [address] Rheumatology 08/20/11 documented as of this encounter
--- OUTSIDE RECORDS SUMMARY | 2024-06-22 21:56 | XMS_ITS | Encounter Summary ---
Author Organization [facility] Address [address] [place] [address] [place] [address] Care Team Providers Care Dynamics Ax Consultant Name Role Phone Tim Altman MD Primary Care Provider [phone] Vani Waldrop MD Unavailable [phone] Casper Smith MD Unavailable Unavailable Reason for Visit * Reason Comments Refill Request Encounter Details Date Type Department Care Team (Late st Contact Info) Description 05/10/2013 Refill [facility] - Rheumatology [address] [place] [address] Casper Smith MD Refill Request Social History [...] on filedocumented in this encounter Care Teams Dynamics Ax Consultant Relationship Specialty Start Date End Date Tim Altman MD PCP - General 10/18/10 [place] [address] [place] [address] Orthopedic Surgery 05/02/11 [place] [address] [place] [address] Rheumatology 08/20/11 documented as of this encounter
--- OUTSIDE RECORDS SUMMARY | 2024-06-22 21:56 | XMS_ITS | Encounter Summary ---
Author Organization [facility] Address [facility] [place] [address] Care Team Providers Care Chief Librarian Circulation Department Name Role Phone Tim Altman MD Primary Care Provider +1- [phone] Vani Waldrop MD Unavailable [phone] Casper Smith MD Unavailable Unavailable Reason for Visit * Reason Comments Pain Knee right is worse & swo llen. Pain goes down leg into foot Encounter Details Date Type Department Care Team (Late st Contact Info) Description 09/05/2013 11:00 AM CDT Office Visit [facility] - Rheumatology [address] [place] [address] [phone] Casper Smith MD Rheumatoid arthritis (HCC) (Primary [...] MOUTH IN THE MORNING TWO IN THE [id number] Tab 10 ??? traMADol (ULTRAM) 50 MG [...] crutches, prosthesis, splint/brace, walker and wheelchair HEENT: [place] , cerumen , anisocoria, retinal, hemorrhage, thrush, [...] abn 1st [facility], Flexor tend, Finger Deformity: [place] neck/ Boutonniere/ Mallet finger, Ulnar deviation, Dupuytren's, [...] this encounter Visit Diagnoses Diagnosis Rheumatoid arthritis(714.0) ([facility])- Primary Rheumatoid arthritis DJD (degenerative joint disease) of knee Osteoarthrosis, unspecified whether generalized or localized, lower leg Restless legs syndrome (RLS) Insomnia Insomnia, unspecified High risk medications (not anticoagulants) long-term use Encounter for long-term (current) use of other medications documented in this encounter Care Teams Chief Librarian Circulation Department Relationship Specialty Start Date End Date Tim Altman MD PCP - General 10/18/10 [place] [address] [place] [address] Orthopedic Surgery 05/02/11 [place] [address] [place] [address] Rheumatology 08/20/11 documented as of this encounter
--- OUTSIDE RECORDS SUMMARY | 2024-06-22 21:56 | XMS_ITS | Encounter Summary ---
Author Organization [facility] Address [address] [place] [address] [place] [address] Care Team Providers Care Aluminum Boat Inspector Name Role Phone Tim Altman MD Primary Care Provider [phone] Vani Waldrop MD Unavailable [phone] Casper Smith MD Unavailable Unavailable Reason for Visit * Reason Onset Date Comments MEDICATION REFILL 02/02/2012 Encounter Details Date Type Department Care Team (Late st Contact Info) Description 02/02/2012 Refill [facility] - Rheumatology [address] [place] [address] Casper Smith MD MEDICATION REFILL Social History [...] encounter Visit Diagnoses Diagnosis PMR (polymyalgia rheumatica) ([facility])- Primary Polymyalgia rheumatica documented in this encounter Care Teams Aluminum Boat Inspector Relationship Specialty Start Date End Date Tim Altman MD PCP - General 10/18/10 [place] [address] [address] Orthopedic Surgery 05/02/11 [place] [address] [address] Rheumatology 08/20/11 documented as of this encounter
--- OUTSIDE RECORDS SUMMARY | 2024-06-22 21:56 | XMS_ITS | Encounter Summary ---
Author Organization [facility] Address [address] [place] [address] [place] [address] Care Team Providers Care Vp Account Director Name Role Phone Tim Altman MD Primary Care Provider [phone]- [phone] Vani Waldrop MD Unavailable [phone] Casper Smith MD Unavailable Unavailable Reason for Visit * Treatment (Routine) - Closed Specialty Diagnoses / Procedures Referred By Dariela nettles Referred To Contact Infusion Therapy Nurse Diagnoses Polymyalgia rheumatica (HCC) Procedures PA INFLIXIMAB INJECTION Casper Smith MD Referral ID Status Reason Start Date Expiration Date Visits Re quested Visits Authorized [id number] Closed 03/10/2013 06/14/2013 1 4 Encounter Details Date Type Department Care Team (Latest Contact Info) Description 03/14/2013 12:56 PM CDT - 03/14/2013 11:59 PM CDT Hospital Encounter [facility] - Rheumatology [address] [place] [address] Casper Smith MD Discharge Disposition: Home or [...] Plummer RN - 03/14/2013 1:31 PM CDT [place] Rheumatology Post Infusion instructions You have received [...] rash or breathing problems please call your [facility] Rheumatology physician for further instructions. While most problems that occur around the time of an infusion are very mild and not dangerous, they should not be ignored. Thursday through Thursday 9-5 call the office at [phone] After hours or on the weekend call the exchange at [phone] If you have had lab work done [...] you and are glad you have chosen [facility] as your provider. Haylee Plummer RN [...] 1 Packet 0 05/25/2012 08/09/2013 nystatin (MYCOSTATIN) [id number] UNIT/ML suspensionIndications :Thrush Take 5 mL by [...] 03/14/2013 1:51 PM CDT INFUSIONS Lexi Mcneil [id number] 03/14/2013 Patient questionnaire results Health Assessment Questionnaire [...] mL/hr documented in this encounter Care Teams Vp Account Director Relationship Specialty Start Date End Date Tim Altman MD PCP - General 10/18/10 [place] [address] [place] [address] Orthopedic Surgery 05/02/11 [place] [address] [place] [address] Rheumatology 08/20/11 documented as of this encounter
--- OUTSIDE RECORDS SUMMARY | 2024-06-22 21:56 | XMS_ITS | Encounter Summary ---
Author Organization [facility] Address [facility] [place] [address] Care Team Providers Care Plate Glass Polisher Name Role Phone Tim Altman MD Primary Care Provider [phone]- [phone] Vani Waldrop MD Unavailable [phone] Casper Smith MD Unavailable Unavailable Reason for Referral * Radiology Services - Closed Specialty Diagnoses / Procedures Referred By Dariela nettles Referred To Contact Diagnoses Hand pain, right Procedures US EXTREMITY NON VASCULAR RIGHT Casper Smith MD Referral ID Status Reason Start Date Expiration Date Visits Re quested Visits Authorized [id number] Closed 02/08/2014 08/07/2014 1 1 Reason for Visit * Reason Comments Swelling Hand Pain Knee left knee/thigh Encounter Details Date Type Department Care Team (Late st Contact Info) Description 02/08/2014 2:30 PM CDT Office Visit [facility] - Rheumatology [address] [place] [address] Casper Smith MD Rheumatoid arthritis (HCC) (Primary [...] MOUTH IN THE MORNING TWO IN THE [id number] Tab 10 ??? acetaminophen (TYLENOL) 500 MG [...] crutches, prosthesis, splint/brace, walker and wheelchair HEENT: [place] , cerumen , anisocoria, retinal, hemorrhage, thrush, [...] abn 1st [facility],Flexor tend, Finger Deformity: [place] neck/ Boutonniere/ Mallet finger, Ulnar deviation, Dupuytren's, [...] ??? METHYLPREDNISOLONE ACETATE 20 MG INJ ??? [place] INJECT TENDON SHEATH/LIGAMENT ??? methylPREDNISolone [...] Neurology [facility] Rheumatology Ultrasound Clinic [facility]-[address] [address] Ultrasound apparatus: [employer] MyLab5 with a LA435 or LA523 probe [...] with any questions Casper Smith MD Office [phone] Back line [phone] documented in this encounter Miscellaneous Notes * [...] the diagnostic impression are recorded by the employee relations advisor under the direction of the attending physician [...] MD directly to discuss this case at [phone] or via HelloFax at: [email or web address]. Casper Smith MD ORDERABLES documented in this [...] Wrist documented in this encounter Care Teams Plate Glass Polisher Relationship Specialty Start Date End Date Tim Altman MD PCP - General 10/18/10 [place] [address] [place] [address] Orthopedic Surgery 05/02/11 [place] [address] [place] [address] Rheumatology 08/20/11 documented as of this encounter
--- OUTSIDE RECORDS SUMMARY | 2024-06-22 21:56 | XMS_ITS | Encounter Summary ---
Author Organization [facility] Address [employer] [place] [address] Care Team Providers Care Clay Miller Name Role Phone Tim Altman MD Primary Care Provider [phone]- [phone] Vani Waldrop MD Unavailable [phone] Casper Smith MD Unavailable Unavailable Reason for Visit * Reason Comments Imm Inj bilateral euflexxa Encounter Details Date Type Department Care Team (Late st Contact Info) Description 11/30/2013 12:15 PM CDT Office Visit [facility] - Rheumatology [address] [place] [address] Casper Smith MD DJD (degenerative joint [...] Smith MD - 11/30/2013 4:16 PM CDT [address] [address] Ultrasound guided viscosupplement injection in [...] for optimal needle visualization and patient anatomy Cable Maker views of the knee were reviewed prior [...] leg documented in this encounter Care Teams Clay Miller Relationship Specialty Start Date End Date Tim Altman MD PCP - General 10/18/10 [place] [address] [place] [address] Orthopedic Surgery 05/02/11 [place] [address] [place] [address] Rheumatology 08/20/11 documented as of this encounter
--- OUTSIDE RECORDS SUMMARY | 2024-06-22 21:56 | XMS_ITS | Encounter Summary ---
Author Organization [facility] Address [facility] [place] [address] Care Team Providers Care Computerized Table Cutter Name Role Phone Tim Altman MD Primary Care Provider [phone] Vani Waldrop MD Unavailable [phone] Casper Smith MD Unavailable Unavailable Reason for Visit * Reason Comments Edema both legs swollen, p ainful & red following infusion & worsening, x 3 weeks Swelling Hand both hands also swol sai Encounter Details Date Type Department Care Team (Late st Contact Info) Description 11/21/2013 9:20 AM CDT Office Visit [facility] - Family Medicine [address] [place] [address] Kraly Snyder, FINISH SAW OPERATOR-OPERATIONS LABEL CLERK [address] [address] Rheumatoid arthritis (HCC) (Primary Dx) [...] for this basename: HGBA1C:3 in the last 00400 hours No results found for this basename: MICROALBCREA:3 in the last 97432 hours ASSESSMENT/PLAN: 1. Rheumatoid arthritis predniSONE (DELTASONE) [...] MOUTH IN THE MORNING TWO IN THE [id number] Tab 10 ??? folic acid (FOLVITE) 1 [...] Diagnoses Diagnosis Rheumatoid arthritis(714.0) ([facility])- Primary Rheumatoid arthritis documented in this encounter Care Teams Computerized Table Cutter Relationship Specialty Start Date End Date Tim Altman MD PCP - General 10/18/10 [place] [address] [place] [address] Orthopedic Surgery 05/02/11 [place] [address] [place] [address] Rheumatology 08/20/11 documented as of this encounter
--- OUTSIDE RECORDS SUMMARY | 2024-06-22 21:56 | XMS_ITS | Encounter Summary ---
Author Organization [facility] Address [address] [place] [address] [place] [address] Care Team Providers Care Bottling Line Operator Name Role Phone Tim Altman MD Primary Care Provider [phone] Vani Waldrop MD Unavailable [phone] Casper Smith MD Unavailable Unavailable Reason for Visit * Reason Onset Date Comments MEDICATION REFILL 11/30/2013 Encounter Details Date Type Department Care Team (Late st Contact Info) Description 11/30/2013 Refill [facility] - Rheumatology [address] [place] [address] Casper Smith MD MEDICATION REFILL Social History [...] on filedocumented in this encounter Care Teams Bottling Line Operator Relationship Specialty Start Date End Date Tim Altman MD PCP - General 10/18/10 [place] [address] [place] [address] Orthopedic Surgery 05/02/11 [place] [address] [address] Rheumatology 08/20/11 documented as of this encounter
--- OUTSIDE RECORDS SUMMARY | 2024-06-22 21:56 | XMS_ITS | Encounter Summary ---
Author Organization [facility] Address [address] [place] [address] [place] [address] Care Team Providers Care Cognos Lead Name Role Phone Tim Altman MD Primary Care Provider [phone] Vani Waldrop MD Unavailable [phone] Casper Smith MD Unavailable Unavailable Reason for Visit * Reason Onset Date Comments Medication Problem 01/16/2012 Encounter Details Date Type Department Care Team (Late st Contact Info) Description 01/16/2012 Telephone [facility] - Rheumatology [address] [place] [phone] Casper Smith MD Medication Problem Social History [...] on filedocumented in this encounter Care Teams Cognos Lead Relationship Specialty Start Date End Date Tim Altman MD PCP - General 10/18/10 [place] [address] [place] [address] Orthopedic Surgery 05/02/11 [place] [address] [place] [address] Rheumatology 08/20/11 documented as of this encounter
--- OUTSIDE RECORDS SUMMARY | 2024-06-22 21:56 | XMS_ITS | Encounter Summary ---
Author Organization [facility] Address [address] [place] [address] [place] [address] Care Team Providers Care Payroll Assistant Name Role Phone Tim Altman MD Primary Care Provider [phone]- [phone] Vani Waldrop MD Unavailable [phone] Casper Smith MD Unavailable Unavailable Reason for Visit * Treatment (Routine) - Closed Specialty Diagnoses / Procedures Referred By Dariela nettles Referred To Contact Infusion Therapy Nurse Diagnoses Polymyalgia rheumatica (HCC) Procedures [place] INFLIXIMAB INJECTION Casper Smith MD Referral ID Status Reason Start Date Expiration Date Visits Re quested Visits Authorized [id number] Closed 03/10/2013 06/14/2013 1 4 Encounter Details Date Type Department Care Team (Latest Contact Info) Description 03/28/2013 10:57 AM CDT - 03/28/2013 11:59 PM CDT Hospital Encounter [facility] - Rheumatology [address] [place] [address] Casper Smith MD Discharge Disposition: Home or [...] Mae RN - 03/28/2013 11:17 AM CDT [place] Rheumatology Post Infusion instructions You have received [...] through Thursday 9-5 call the office at [phone] After hours or on the weekend call the exchange at [phone] If you have had lab work done [...] you and are glad you have chosen [facility] as your provider. Antoine Mae RN * [...] 03/28/2013 12:32 PM CDT [facility] Lexi Mcneil [id number] 03/28/2013 Diagnosis: Polymyalgia rheumatica [725] Myalgia and [...] mL/hr documented in this encounter Care Teams Payroll Assistant Relationship Specialty Start Date End Date Tim Altman MD PCP - General 10/18/10 [place] [address] [place] [address] Orthopedic Surgery 05/02/11 [place] [address] [place] [address] Rheumatology 08/20/11 documented as of this encounter
--- OUTSIDE RECORDS SUMMARY | 2024-06-22 21:56 | XMS_ITS | Encounter Summary ---
Author Organization [facility] Address [address] [place] [address] [place] [address] Care Team Providers Care Lidar Scientist Name Role Phone Tim Altman MD Primary Care Provider [phone] Vani Waldrop MD Unavailable [phone] Casper Smith MD Unavailable Unavailable Reason for Visit * Reason Onset Date Comments MEDICATION REFILL 10/06/2011 Encounter Details Date Type Department Care Team (Late st Contact Info) Description 10/06/2011 Refill [facility] - Family Medicine [address] [place] [address] Casper Smith MD MEDICATION REFILL Social History [...] on filedocumented in this encounter Care Teams Lidar Scientist Relationship Specialty Start Date End Date Tim Altman MD PCP - General 10/18/10 [place] [address] [place] [phone] Orthopedic Surgery 05/02/11 [place] [address] [place] [address] Rheumatology 08/20/11 documented as of this encounter
--- OUTSIDE RECORDS SUMMARY | 2024-06-22 21:56 | XMS_ITS | Encounter Summary ---
Author Organization [facility] Address [address] [place] [address] [place] [address] Care Team Providers Care Hide Washer Name Role Phone Tim Altman MD Primary Care Provider [phone] Vani Waldrop MD Unavailable [phone] Casper Smith MD Unavailable Unavailable Reason for Visit * Reason Comments Refill Request Encounter Details Date Type Department Care Team (Late st Contact Info) Description 12/15/2012 Refill [facility] - Rheumatology [address] [place] [address] Casper Smith MD Refill Request Social History [...] on filedocumented in this encounter Care Teams Hide Washer Relationship Specialty Start Date End Date Tim Altman MD PCP - General 10/18/10 [place] [address] [place] [address] Orthopedic Surgery 05/02/11 [place] [address] [place] [address] Rheumatology 08/20/11 documented as of this encounter
--- OUTSIDE RECORDS SUMMARY | 2024-06-22 21:56 | XMS_ITS | Encounter Summary ---
Author Organization [facility] Address [address] [place] [address] [place] [address] Care Team Providers Care Remnants Cutter Name Role Phone Tim Altman MD Primary Care Provider [phone] Vani Waldrop MD Unavailable [phone] Casper Smith MD Unavailable Unavailable Reason for Visit * Reason Comments Refill Request Encounter Details Date Type Department Care Team (Late st Contact Info) Description 04/29/2013 Refill [facility] - Rheumatology [address] [place] [address] Casper Smith MD Refill Request Social History [...] on filedocumented in this encounter Care Teams Remnants Cutter Relationship Specialty Start Date End Date Tim Altman MD PCP - General 10/18/10 [place] [address] [place] [phone] Orthopedic Surgery 05/02/11 [place] [address] [place] [address] Rheumatology 08/20/11 documented as of this encounter
--- OUTSIDE RECORDS SUMMARY | 2024-06-22 21:56 | XMS_ITS | Encounter Summary ---
Author Organization [facility] Address [address] [place] [address] [place] [address] Care Team Providers Care Pmo Lead Name Role Phone Tim Altman MD Primary Care Provider [phone] Vani Waldrop MD Unavailable [phone] Casper Smith MD Unavailable Unavailable Reason for Visit * Reason Comments Refill Request Encounter Details Date Type Department Care Team (Late st Contact Info) Description 12/19/2013 Refill [facility] - Rheumatology [address] [place] [address] Casper Smith MD Refill Request Social History [...] on filedocumented in this encounter Care Teams Pmo Lead Relationship Specialty Start Date End Date Tim Altman MD PCP - General 10/18/10 [place] [address] [place] [address] Orthopedic Surgery 05/02/11 [place] [address] [place] [address] Rheumatology 08/20/11 documented as of this encounter
--- OUTSIDE RECORDS SUMMARY | 2024-06-22 21:56 | XMS_ITS | Encounter Summary ---
Author Organization [facility] Address [address] [place] [address] [place] [address] Care Team Providers Care Die Sinking Machine Operator Name Role Phone Tim Altman MD Primary Care Provider [phone] Vani Waldrop MD Unavailable [phone] Casper Smith MD Unavailable Unavailable Reason for Visit * Reason Onset Date Comments Erroneous encounter-disregard 09/02/2013 Encounter Details Date Type Department Care Team (Late st Contact Info) Description 09/02/2013 Telephone [facility] - Rheumatology [address] [place] [address] Casper Smith MD Erroneous encounter-disregard Social History [...] on filedocumented in this encounter Care Teams Die Sinking Machine Operator Relationship Specialty Start Date End Date Tim Altman MD PCP - General 10/18/10 [place] [address] [place] [phone] Orthopedic Surgery 05/02/11 [place] [address] [place] [address] Rheumatology 08/20/11 documented as of this encounter
--- OUTSIDE RECORDS SUMMARY | 2024-06-22 21:56 | XMS_ITS | Encounter Summary ---
Author Organization [facility] Address [facility] [facility] [address] Care Team Providers Care Director Of Digital Technology Name Role Phone Tim Altman MD Primary Care Provider [phone] Vani Waldrop MD Unavailable [phone] Casper Smith MD Unavailable Unavailable Reason for Visit * Reason Comments Pain Knee right knee pain & sw elling. Burning in back of knee Encounter Details Date Type Department Care Team (Late st Contact Info) Description 08/09/2013 11:45 AM PORTABLE GRINDING MACHINE OPERATOR Office Visit [facility] - Rheumatology [address] [place], [place] [phone] Casper Smith MD Rheumatoid arthritis (HCC) (Primary [...] Comments Blood Pressure 128/78 08/09/2013 11:59 AM PORTABLE GRINDING MACHINE OPERATOR Pulse 108 08/09/2013 11:59 AM PORTABLE GRINDING MACHINE OPERATOR Temperature - - Respiratory Rate - - Oxygen Saturation - - Inhaled Oxygen Concentration - - Weight 107 kg (236 lb) 08/09/2013 11:59 AM PORTABLE GRINDING MACHINE OPERATOR Height 163.8 cm (5' 4.5 ) 08/09/2013 11:59 AM CS T Body Mass Index 39.88 08/09/2013 11:59 AM PORTABLE GRINDING MACHINE OPERATOR documented in this encounter Progress [...] crutches, prosthesis, splint/brace, walker and wheelchair HEENT: [place] , cerumen , anisocoria, retinal, hemorrhage, thrush, [...] abn 1st [facility], Flexor tend, Finger Deformity: [place] neck/ Boutonniere/ Mallet finger, Ulnar deviation, Dupuytren's, [...] ??? METHYLPREDNISOLONE ACETATE 80 MG INJ ??? [place] DRAIN/INJECT LARGE JOINT/BURSA ??? meloxicam (MOBIC) 7.5 [...] Dr Cathie Wilkerson NeuroOpth, Dr Reaves Neurology [facility] Rheumatology Ultrasound Clinic [facility] [address] [place] [address] Ultrasound apparatus: [employer] MyLab5 with a [id number] or [id number] probe [...] with any questions Casper Smith MD Office [phone] Back line [phone] ABLE GRINDING MACHINE OPERATOR documented in this encounter Plan of Treatment Not on file documented as of this encounter Visit Diagnoses Diagnosis Rheumatoid arthritis(714.0) ([facility])- Primary Rheumatoid arthritis Right knee pain Pain in joint, lower leg documented in this encounter Care Teams Director Of Digital Technology Relationship Specialty Start Date End Date Tim Altman MD PCP - General 10/18/10 [place] [address] [place] [address] Orthopedic Surgery 05/02/11 [place] [address] [place] [address] Rheumatology 08/20/11 documented as of this encounter
--- OUTSIDE RECORDS SUMMARY | 2024-06-22 21:57 | XMS_ITS | Encounter Summary ---
Author Organization [employer] Care Team Providers Care Cinder Block Maker Name Role Phone Tim Altman MD Primary Care Provider [phone] Encounter Details Date Type Department Care Team (Latest Contact Info) Description 05/10/2024 Travel Social History Tobacco Use Types Packs/Day Years Used Date Smoking Tobacco: Former Cigarettes Q uit: 07/23/1969 Passive Smoke Exposure: Past Smokeless Tobacco: Never Alcohol Use Standard Drinks/Week Comments Not Currently 0 (1 standard drink = 0.6 oz pur e alcohol) [facility] Utilities Answer Date Recorded In the past 12 months has [employer], gas, oil, or water company threatened [...] any clubs o r organizations such as baptism groups, unions, fraternal or athletic groups, or [...] Total Score - Questions 1-9 0 08/14 [facility] - Occupational Stress Questionnaire Answer Date [...] st Contact Info) Description 06/30/2024 10:00 AM SPECIAL FORCES OFFICER Physical Therapy [facility] at [facility] [address] [place] [address] Raul Young MD [address] [place] [address] Brandi Coffey, PT [place] Discharge Disposition: Discharged to home or Selfcare 08/31/2024 9:30 AM CDT Office Visit [facility] - Internal Medicine [place] [address] [place] [address] Tim Altman MD [address] [place] [address] documented as of this encounter Visit Diagnoses Not on filedocumented in this encounter Additional Health Concerns Assessment Noted Time PHQ-9 Depression Total Score: 0 09/03/19 24 9:32 AM CDT documented as of this encounter Care Teams Cinder Block Maker Relationship Specialty Start Date End Date Tim Altman MD [address] [place] [address] PCP - General Internal Medicine 12/03/15 documented as of this encounter
--- OUTSIDE RECORDS SUMMARY | 2024-06-22 21:57 | XMS_ITS | Encounter Summary ---
Author Organization [facility] Address [address] [place] [address] Phone Care Team Providers Care Substation Operator Transforming Name Role Phone Tim Altman MD Primary Care Provider [phone] Encounter Details Date Type Department Care Team (Late st Contact Info) Description 06/02/2024 Documentation Only [facility] - Internal Medicine - [place] [address] [place] [address] Tim Altman MD [address] [place] [address] Social History Tobacco Use Types Packs/Day Years Used Date Smoking Tobacco: Former Cigarettes Q uit: 07/23/1969 Passive Smoke Exposure: Past Smokeless Tobacco: Never Alcohol Use Standard Drinks/Week Comments Not Currently 0 (1 standard drink = 0.6 oz pur e alcohol) [facility] Utilities Answer Date Recorded In the past 12 months has [employer], gas, oil, or water company threatened to [...] any clubs o r organizations such as gnosticist groups, unions, fraternal or athletic groups, or [...] Total Score - Questions 1-9 0 08/14 [facility] - Occupational [...] place to sleep or slept in a snf (including now)? No 09/03/2023 Sexually Active Control [...] medical clearance form from provider, faxed to [phone] with a successful confirmation at 10:01:09. Scanned to [facility] for input to chart. EGLASS LAY UP WORKER documented in this encounter Plan of Treatment Upcoming Encounters Date Type Department Care Team (Late st Contact Info) Description 06/30/2024 10:00 AM FIBREGLASS LAY UP WORKER Physical Therapy [facility] at [facility] [address] [place] [phone] Raul Young MD [address] [place] [address] Brandi Coffey, [place] Discharge Disposition: Discharged to home or Selfcare 08/31/2024 9:30 AM CDT Office Visit [facility] - Internal Medicine - [place] [address] [place] [phone] Tim Altman MD [address] [place] [address] documented as of this encounter Visit Diagnoses Not on filedocumented in this encounter Additional Health Concerns Assessment Noted Time PHQ-9 Depression Total Score: 0 09/03/19 24 9:32 AM CDT documented as of this encounter Care Teams Substation Operator Transforming Relationship Specialty Start Date End Date Tim Altman MD [address] [place] [address] PCP - General Internal Medicine 12/03/15 documented as of this encounter
--- OUTSIDE RECORDS SUMMARY | 2024-06-22 21:57 | XMS_ITS | Encounter Summary ---
Author Organization [facility] Address [address] [place], [place] [address] [address] Care Team Providers Care Water Registrar Name Role Phone Tim Altman MD Primary Care Provider [phone] Reason for Visit * Reason Onset Date Comments Pain 01/29/2011 Encounter Details Date Type Department Care Team (Late st Contact Info) Description 01/29/2011 Telephone [facility] Medical [facility] - Family Medicine [address] [place] [address] Casper Smith MD Pain Social History Tobacco [...] on filedocumented in this encounter Care Teams Water Registrar Relationship Specialty Start Date End Date Tim Altman MD PCP - General 10/18/10 documented as of this encounter
--- OUTSIDE RECORDS SUMMARY | 2024-06-22 21:57 | XMS_ITS | Encounter Summary ---
Author Organization [facility] Address [address] [place] [address] Phone Care Team Providers Care Filler Feeder Name Role Phone Tim Altman MD Primary Care Provider Encounter Details Date Type Department Care Team (Late st Contact Info) Description 01/07/2023 Telephone [facility] - [place] [address] [place] [address] Tim Altman MD [address] [facility] [place] [address] Social History Tobacco Use Types [...] st Contact Info) Description 06/30/2024 10:00 AM BARYTES GRINDER Physical Therapy [facility] at [facility] [address] [place] [address] Raul Young MD [address] [place] [address] Brandi Coffey, PT [place] Discharge Disposition: Discharged to home or Selfcare 08/31/2024 9:30 AM CDT Office Visit [facility] [address] [place] [phone] Tim Altman MD [address] [place] [address] documented as of this encounter Visit Diagnoses Not on filedocumented in this encounter Additional Health Concerns Assessment Noted Time PHQ-9 Depression Total Score: 0 06/18/19 21 3:00 PM BARYTES GRINDER documented as of this encounter Care Teams Filler Feeder Relationship Specialty Start Date End Date Tim Altman MD [address] [place] [address] PCP - General Internal Medicine 12/03/15 documented as of this encounter
--- OUTSIDE RECORDS SUMMARY | 2024-06-22 21:57 | XMS_ITS | Encounter Summary ---
Author Organization [facility] Address [address] [place], [place] [address] [address] Care Team Providers Care Boom Operator Name Role Phone Tim Altman MD Primary Care Provider [phone] Reason for Visit * Reason Comments Fibromyalgia Polymyalgia Rheumatica Headache Nausea Pain Joint Pain Neck rt Numbness rt arm Pain Facial rt Encounter Details Date Type Department Care Team (Latest Contact Info) Description 10/18/2010 1:15 PM CDT Office Visit [facility] - Rheumatology [address] [place] [address] Casper Smith MD Fibromyalgia (Primary Dx); PMR [...] multiple dental evaluations and a visit to [facility] who triggered a Rheum consult and temporal [...] crutches, prosthesis, splint/brace, walker and wheelchair HEENT: [place] , cerumen , anisocoria, retinal, hemorrhage, [...] abn 1st [facility], Flexor tend, Finger Deformity: [place] neck/ Boutonniere/ Mallet finger, Ulnar deviation, Dupuytren's, [...] documented in this encounter Results * (ABNORMAL) C[facility] STAINING PATTERNS (PO REF LAB) (10/18/2010 1:56 [...] (Smooth) ? Histone ? Speckled ? Sm, CONDENSER CLEANER, SCL-70, ??SLE,MCTD,Scleroderma,Sjogrens ? SS-A/SS-B ? Nucleolar ?SCL-70, PM-1/SCL ??High titers Scleroderma Poly- ? myositis/Scleroderma Overlap ? Centromere ?? Centromere ?PSS w/Crest syndrome variable ?? 10/18/2010 1:56 PM CDT 10/18/2010 9:12 PM CDT Narrative Resulting Agency Comment [facility] [place] [address] [place] [address] ??[facility] [phone] Casper Smith MD LAB - PATHOLOGY/CYTO LOGY ORDERABLES [facility] ACCOUNT BILL * ESTHELA BLOOD SCREEN W/REFLEX TITER (10/18/2010 1:56 PM CDT) ESTHELA See patterns [facility] ACCOUNT BILL Comment: ?Negative ?? <1:80 ?Borderline ??1:80 ?Positive ?? >1:80 BLOOD SPECIMEN / Unknown 10/18/2010 1:56 PM CDT 10/18/2010 9:12 PM CDT Narrative Resulting Agency Comment [facility] [place] [address] ??[place] [phone] Casper Smith MD LAB - CHEMISTRY CHELI SAAB [facility] ACCOUNT BILL * TSH (10/18/2010 1:56 PM CDT) TSH 1.160 0.450 - 4.500 uIU/mL [facility] ACCOUNT BILL BLOOD SPECIMEN / Unknown 10/18/2010 1:56 PM CDT 10/18/2010 9:12 PM CDT Narrative Resulting Agency Comment [facility] [place] [address] ??[place] [phone] Casper Smith MD LAB - CHEMISTRY CHELI SAAB [facility] ACCOUNT BILL * RHEUMATOID FACTOR BLOOD QUANTITATIVE (10/18/2010 1:56 PM CDT) Rheumatoid Factor 9.4 0.0 - 13.9 IU/mL [facility] ACCOUNT BILL BLOOD SPECIMEN / Unknown 10/18/2010 1:56 PM CDT 10/18/2010 9:12 PM CDT Narrative Resulting Agency Comment [facility] [place] [address] ??[place] [phone] Casper Smith MD LAB - CHEMISTRY CHELI SAAB [facility] ACCOUNT BILL * C-REACTIVE PROTEIN (10/18/2010 1:56 PM CDT) C-Reactive Protein <0.3 0.0 - 4.9 mg/L [facility] ACCOUNT BILL BLOOD SPECIMEN / Unknown 10/18/2010 1:56 PM CDT 10/18/2010 9:12 PM CDT Narrative Resulting Agency Comment [facility] [place] [address] ??[place] [phone] Casper Smith MD LAB - CHEMISTRY CHELI SAAB [facility] Organization Address City/State/ZIP Co de [...] PM CDT Narrative Resulting Agency Comment [facility] [address] ??[facility] [phone] Casper Smith MD LAB - CHEMISTRY CHELI SAAB [facility] Organization Address City/State/ZIP Co de [...] PM CDT Narrative Resulting Agency Comment [facility] [address] ??[facility] [phone] Casper Smith MD LAB - HEMATOLOGY ORD ERABLES [facility] ACCOUNT BILL documented in this encounter Visit Diagnoses Diagnosis Fibromyalgia- Primary Mylagia and myositis, unspecified PMR (polymyalgia rheumatica) (HCC) Polymyalgia rheumatica DJD (degenerative joint disease) of knee Osteoarthrosis, unspecified whether generalized or localized, lower leg Insomnia Insomnia, unspecified documented in this encounter Care Teams Boom Operator Relationship Specialty Start Date End Date Tim Altman MD PCP - General 10/18/10 documented as of this encounter
--- OUTSIDE RECORDS SUMMARY | 2024-06-22 21:57 | XMS_ITS | Encounter Summary ---
Author Organization [facility] Address [address] [place] [address] Phone Care Team Providers Care Farmworker Cranberry Name Role Phone Tim Altman MD Primary Care Provider [phone]- [phone] Reason for Visit * Reason Comments Medication Refill Encounter Details Date Type Department Care Team (Late st Contact Info) Description 05/29/2023 Refill [facility] - Internal Medicine - [place] [address] [place] [address] Tim Altman MD [address] [place] [address] Medication Refill Social History Tobacco [...] 07/09/22 Office Visit Tim Altman MD [facility] [place] Showing recent visits within past 365 days and meeting all other requirements Future Appointments Date Type Provider Dept 07/15/23 Appointment Tim Altman MD [facility] Showing future appointments within next 90 days and meeting all other requirements LER documented in this encounter Plan of Treatment Upcoming Encounters Date Type Department Care Team (Late st Contact Info) Description 06/30/2024 10:00 AM TOGGLER Physical Therapy [facility] at [facility] [address] [facility], [address] [place] [phone] Raul Young MD [address] [facility] [address] [place] [address] Brandi Coffey, PT [place] Discharge Disposition: Discharged to home or Selfcare 08/31/2024 9:30 AM CDT Office Visit [facility] - Internal Medicine - [place] [address] [place] [place] [address] Tim Altman MD [address] [place] [address] documented as of this encounter Visit Diagnoses Not on filedocumented in this encounter Additional Health Concerns Assessment Noted Time PHQ-9 Depression Total Score: 0 06/18/19 21 3:00 PM TOGGLER documented as of this encounter Care Teams Farmworker Cranberry Relationship Specialty Start Date End Date Tim Altman MD [address] [place] [address] PCP - General Internal Medicine 12/03/15 documented as of this encounter
--- OUTSIDE RECORDS SUMMARY | 2024-06-22 21:57 | XMS_ITS | Encounter Summary ---
Author Organization [facility] Address [address] [facility] [place] [address] Care Team Providers Care Gauge Inspector Name Role Phone Tim Altman MD Primary Care Provider [phone]- [phone] Vani Waldrop MD Unavailable [phone] Reason for Visit * Reason Comments Pain Knee knee pain Encounter Details Date Type Department Care Team (Late st Contact Info) Description 05/05/2011 10:00 AM HOIST CYLINDER LOADER Office Visit [facility] Orthopedics [address] [place] [phone] Vani Waldrop MD [address] [place] [phone] Primary localized osteoarthrosis, lower leg (Primary [...] 08:40 AM Modules accepted: Level of Service T CYLINDER LOADER * Heber Thomas RN - 05/05/2011 9:45 AM CST synvisc injection T CYLINDER LOADER documented in this encounter H&P Notes * [...] Umm Waldrop M.D. Electronically Signed 05/06/2011 09:51:23 HOIST CYLINDER LOADER CK/MedQ #: [id number] documented in this encounter Plan of Treatment Not on file documented as of this encounter Visit Diagnoses Diagnosis Primary localized osteoarthrosis, lower leg- Primary documented in this encounter Care Teams Gauge Inspector Relationship Specialty Start Date End Date Tim Altman MD PCP - General 10/18/10 [place] [address] [place] [address] [place] [address] Orthopedic Surgery 05/02/11 documented as of this encounter
--- OUTSIDE RECORDS SUMMARY | 2024-06-22 21:57 | XMS_ITS | Encounter Summary ---
Author Organization [facility] Address [address] [place], [place] [address] [address] Care Team Providers Care Sole Seamer Name Role Phone Tim Altman MD Primary Care Provider [phone]- [phone] Reason for Visit * Reason Onset Date Comments Medication Issue 01/07/2011 Encounter Details Date Type Department Care Team (Late st Contact Info) Description 01/07/2011 Telephone [facility] Medical [facility] - Rheumatology [address] [place] [address] Casper Smith MD Medication Issue Social History [...] on filedocumented in this encounter Care Teams Sole Seamer Relationship Specialty Start Date End Date Tim Altman MD PCP - General 10/18/10 documented as of this encounter
--- OUTSIDE RECORDS SUMMARY | 2024-06-22 21:57 | XMS_ITS | Encounter Summary ---
Author Organization [facility] Address [address] [place] [address] Phone Care Team Providers Care Auto Hiker Name Role Phone Tim Altman MD Primary Care Provider Encounter Details Date Type Department Care Team (Late st Contact Info) Description 05/10/2024 8:10 AM GLASS BEVELER Lab [facility] - Internal Medicine - [place] [address] [place] [address] [facility]; Hyperglycemia; Arthralgia, unspecified joint Discharge Disposition: Discharged to home or Selfcare Social History Tobacco Use Types Packs/Day Years Used Date Smoking Tobacco: Former Cigarettes Q uit: 07/23/1969 Passive Smoke Exposure: Past Smokeless Tobacco: Never Alcohol Use Standard Drinks/Week Comments Not Currently 0 (1 standard drink = 0.6 oz pur e alcohol) [facility] Utilities Answer Date Recorded In the past 12 months has [employer], gas, oil, or water [employer] threatened to shut off services in your [...] week 09/03/2023 How often do you attend [facility] or sikh services? Never 09/03/2023 Do you belong to [...] Total Score - Questions 1-9 0 08/14 [facility] of Occupat ional [facility] - Occupational Stress Questionnaire Answer Date [...] place to sleep or slept in a assisted (including now)? No 09/03/2023 Sexually Active Control [...] labswell without incident. Drawn from left wrist S BEVELER documented in this encounter Plan of Treatment Upcoming Encounters Date Type Department Care Team (Late st Contact Info) Description 06/30/2024 10:00 AM GLASS BEVELER Physical Therapy [facility] [address] [place] [place] [address] Raul Young MD [address] [facility] [address] [place] [address] Brandi Coffey, PT MD Discharge Disposition: Discharged to home or Selfcare 08/31/2024 9:30 AM CDT Office Visit [facility] - Internal Medicine - [place] [address] [place] [id number] Tim Altman MD [address] [place] [id number] documented as of this encounter Procedures Procedure Name Priority Date/Time Associated Diagnosis Comments HEMOGLOBIN A1C W/ ESTIMATED GLUCOSE Routine 05/10/2024 8:19 AM GLASS BEVELER Hyperglycemia CBC WITH AUTO DIFFERENTIAL Routine 05/10/2024 8:19 AM GLASS BEVELER Pre-op evaluation CMP (COMPREHENSIVE METABOLIC PANEL) Routine 05/10/2024 8:19 AM GLASS BEVELER Pre-op evaluation COMPLETE BLOOD COUNT (CBC) WITH DIFF Routine 05/10/2024 8:19 AM GLASS BEVELER Pre-op evaluation documented in this encounter Results * (ABNORMAL) CBC WITH AUTO DIFFERENTIAL (05/10/2024 8:19 AM GLASS BEVELER) Pathologist [facility] WBC 4.61 4.00 - 12.00 10(3)/mcL 05/10/2024 5:53 PM GLASS BEVELER [facility] RBC 4.16 3.80 - 5.30 10(6)/mcL 05/10/2024 5:53 PM GLASS BEVELER [facility] HEMOGLOBIN (HGB) 14.1 12.0 - 15.8 g/dL 05/10/2024 5:53 PM GLASS BEVELER [facility] HEMATOCRIT (HCT) 42.1 36.0 - 47.0 % 05/10/2024 5:53 PM GLASS BEVELER [facility] MCV 101.2(H) 82.0 - 96.0 fL 05/10/2024 5:53 PM GLASS BEVELER [facility] MCH 33.9 26.0 - 34.0 pg 05/10/2024 5:53 PM GLASS BEVELER [facility] MCHC 33.5 31.0 - 36.0 g/dL 05/10/2024 5:53 PM GLASS BEVELER [facility] PLATELET COUNT 175 140 - 440 10(3)/mcL 05/10/2024 5:53 PM GLASS BEVELER [facility] RDW 14.2 11.8 - 15.5 % 05/10/2024 5:53 PM [facility] MPV 10.9 9.7 - 12.4 fL 05/10/2024 5:53 PM [facility] NEUTROPHILS 49.6 47.0 - 73.0 % 05/10/2024 5:53 PM GLASS BEVELER [facility] LYMPHOCYTES 42.7(H) 18.0 - 42.0 % 05/10/2024 5:53 PM GLASS BEVELER [facility] MONOCYTES 6.3 4.0 - 12.0 % 05/10/2024 5:53 PM GLASS BEVELER [facility] EOSINOPHILS 0.7 0.0 - 5.0 % 05/10/2024 5:53 PM GLASS BEVELER [facility] BASOPHILS 0.7 0.0 - 1.0 % 05/10/2024 5:53 PM GLASS BEVELER [facility] ABSOLUTE NEUTROPHILS 2.29 1.60 - 7.70 10(3)/[facility] 05/10/2024 5:53 PM [facility] ABSOLUTE LYMPHOCYTES 1.97 1.30 - 3.20 10(3)/[facility] 05/10/2024 5:53 PM [facility] ABSOLUTE MONOCYTES 0.29 0.20 - 1.00 10(3)/[facility] 05/10/2024 5:53 PM GLASS BEVELER [facility] ABSOLUTE EOSINOPHIL 0.03 0.00 - 0.40 10(3)/[facility] 05/10/2024 5:53 PM GLASS BEVELER [facility] ABSOLUTE BASOPHILS 0.03 0.00 - 0.10 10(3)/[facility] 05/10/2024 5:53 PM [facility] NRBC PER 100 WBC 0 05/10/20 5:53 PM [facility] Blood Venipuncture / Unknown 05/10/2024 8:19 AM GLASS BEVELER 05/10/2024 8:19 AM GLASS BEVELER us Tim Altman MD HEMATOLOGY ORDERABLES Final Result [facility] [place] [address] * HEMOGLOBIN A1C W/ ESTIMATED GLUCOSE (05/10/2024 8:19 AM GLASS BEVELER) Pathologist [facility] HGB-A1C 5.6 4.0 - 6.0 % 05/10/2024 3:37 PM GLASS BEVELER [facility] Est Average Glucose 114.0 mg/dL 05/10/2024 3:37 PM [facility] Blood Venipuncture / Unknown 05/10/2024 8:19 AM GLASS BEVELER 05/10/2024 8:19 AM GLASS BEVELER Narrative [facility] - 05/10/2024 3:37 PM GLASS BEVELER HEMOGLOBIN A1C: DIABETIC PATIENTS: WELL-CONTROLLED: ?? 6.2 - 7.0 INTERMEDIATE WELL-CONTROLLED: ??7.0 - 9.0 POORLY-CONTROLLED: ??>9.0 us Tim Altman MD CHEMISTRY ORDERABLES Final Result [facility] [place] [address] * (ABNORMAL) CMP (COMPREHENSIVE METABOLIC PANEL) (05/10/2024 8:19 AM GLASS BEVELER) Pathologist [facility] SODIUM 139 136 - 145 mmol/L 05/10/2024 3:44 PM [facility] POTASSIUM 4.5 3.5 - 5.1 mmol/L 05/10/2024 3:44 PM [facility] CHLORIDE 104 98 - 107 mmol/L 05/10/2024 3:44 PM [facility] CO2, VENOUS 22 22 - 30 mmol/L 05/10/2024 3:44 PM [facility] ANION GAP 17.5 <18.0 mmol/L 05/10/2024 3:44 PM [facility] GLUCOSE 95 70 - 99 mg/dL 05/10/2024 3:44 PM [facility] BUN 17 10 - 20 mg/dL 05/10/2024 3:44 PM [facility] CREATININE, BLOOD 0.83 0.60 - 1.00 mg/dL 05/10/2024 3:44 PM [facility] BUN/CREATININE RATIO 20 12 - 20 ratio 05/10/2024 3:44 PM [facility] TOTAL PROTEIN 7.4 6.3 - 8.2 g/dL 05/10/2024 3:44 PM [facility] ALBUMIN 4.3 3.5 - 5.0 g/dL 05/10/2024 3:44 PM [facility] A/G RATIO 1.4 1.0 - 2.2 05/10/2024 3:44 PM [facility] CALCIUM 10.0 8.7 - 10.5 mg/dL 05/10/2024 3:44 PM [facility] T BILI 0.6 0.2 - 1.2 mg/dL 05/10/2024 3:44 PM [facility] SGOT (AST) 35(H) 5 - 34 U/L 05/10/2024 3:44 PM [facility] SGPT (ALT) 6 0 - 55 U/L 05/10/2024 3:44 PM [facility] ALKALINE PHOSPHATASE 53 40 - 150 U/L 05/10/2024 3:44 PM [facility] IS THE PATIENT REQUIRED TO BE FASTING? No 05/10/2024 3:44 PM [facility] HAS THE PATIENT BEEN FASTING? Yes 05/10/2024 3:44 PM [facility] GFR, ESTIMATED >60 >=60 05/10/2024 3:44 PM [facility] Comment: Creatinine Clearance is the preferred criteria for selecting drug dose adjustments in renally impaired patients. ??The GFR is provided as additional pertinent clinical information. GFR is reported in mL/min/1.73 sq m. Calculation based on the Chronic Kidney Disease Epidemiology Collaboration (CKD- EPI) equation refit without adjustment for race. GFR, EST. >60 >=60 024 3:44 PM [facility] GFR, EST. NONAFRICAN >60 >=60 05/10/2024 3:44 PM [facility] Blood Venipuncture / Unknown 05/10/2024 8:19 AM GLASS BEVELER 05/10/2024 8:19 AM GLASS BEVELER us Tim Altman MD CHEMISTRY ORDERABLES Final Result [facility] [place] [address] documented in this encounter Visit Diagnoses Diagnosis Pre-op evaluation Preoperative examination, unspecified Hyperglycemia Other abnormal glucose Arthralgia, unspecified joint documented in this encounter Additional Health Concerns Assessment Noted Time PHQ-9 Depression Total Score: 0 09/03/19 24 9:32 AM CDT documented as of this encounter Care Teams Auto Hiker Relationship Specialty Start Date End Date Tim Altman MD [address] [place] [id number] PCP - General Internal Medicine 12/03/15 documented as of this encounter
--- OUTSIDE RECORDS SUMMARY | 2024-06-22 21:57 | XMS_ITS | Encounter Summary ---
Author Organization [facility] Address [facility] [place] [address] Care Team Providers Care Picture Hanger Name Role Phone Tim Altman MD Primary Care Provider [phone] Reason for Visit * Reason Onset Date Comments MEDICATION REFILL 03/03/2011 Encounter Details Date Type Department Care Team (Late st Contact Info) Description 03/03/2011 Refill [facility] - Family Medicine [address] [place] [id number] Casper Smith MD MEDICATION REFILL Social History [...] on filedocumented in this encounter Care Teams Picture Hanger Relationship Specialty Start Date End Date Tim Altman MD PCP - General 10/18/10 documented as of this encounter
--- OUTSIDE RECORDS SUMMARY | 2024-06-22 21:57 | XMS_ITS | Encounter Summary ---
Author Organization [facility] Address [address] [place] [address] [place] [address] Care Team Providers Care Swine Nutritionist Name Role Phone Tim Altman MD Primary Care Provider [phone] Reason for Visit * Reason Onset Date Comments Fibromyalgia 04/24/2011 Encounter Details Date Type Department Care Team (Late st Contact Info) Description 04/24/[address] [facility] - Rheumatology [address] [place] [id number] Casper Smith MD Fibromyalgia Social History Tobacco [...] unspecified documented in this encounter Care Teams Swine Nutritionist Relationship Specialty Start Date End Date Tim Altman MD PCP - General 10/18/10 documented as of this encounter
--- OUTSIDE RECORDS SUMMARY | 2024-06-22 21:57 | XMS_ITS | Clinical Summary ---
Author Organization [facility] Address [address] [place] [address] Phone Care Team Providers Care Mirror Painter Name Role Phone Tim Altman MD Primary Care Provider [phone] Allergies Active Allergy Reactions Criticality Noted Date [...] Encounters Date Type Department Care Team Description 06/21/2024 Telephone [facility] - Internal Medicine [facility] [place] [address] Tim Altman MD 06/14/2024 Transcribe Orders [facility] [address] [place] [address] Raul Young MD Aftercare following joint replacement surgery, unspecified joint (Primary Dx); Presence of left artificial knee joint 06/06/2024 Results Follow-Up [facility] - Internal Medicine [facility] [address] [place] [address] Tim Altman MD 06/02/2024 9:30 AM MODULAR SET CREW MEMBER Office Visit [facility] [address] [place] [address] Tim Altman MD Pre-op evaluation (Primary Dx); Primary osteoarthritis of left knee; Essential hypertension, benign; Other specified rheumatoid arthritis, multiple sites (HCC) Discharge Disposition: Discharged to home or Selfcare 06/02/2024 Documentation Only [facility] [address] [place] [address] Tim Altman MD 06/02/2024 Travel 05/10/2024 8:10 AM MODULAR SET CREW MEMBER Lab [facility] [address] [place] [address] [facility] Pre-op evaluation; Hyperglycemia; Arthralgia, unspecified joint Discharge Disposition: Discharged to home or Selfcare 05/10/2024 Travel 04/21/2024 Telephone [facility] [address] [place] [address] Tim Altman MD 04/21/2024 Telephone [facility] [address] [place] [address] Tim Altman MD 04/07/2024 Telephone [facility] [address] [place] [address] Sangita Best, PAC Results 04/01[facility] [address] [place] [address] Sangita Best, PAC Medication Refill from Last 3 Months Immunizations Immunization Administration Dates Next Due Pneumococcal conjugate PCV20 , polysaccharide KHM957 conjugate, adjuvant, PF 01/07/2023 Family History Medical [...] drink = 0.6 oz pur e alcohol) [facility] Utilities Answer Date Recorded In the past 12 months has th e [employer], gas, oil, or water [employer] threatened to shut off services in your [...] week 09/03/2023 How often do you attend [facility] or yazidism services? Never 09/03/2023 Do [...] Total Score - Questions 1-9 0 08/14 [facility] of Occupat ional Health - Occupational Stress [...] Comments Blood Pressure 118/76 06/02/2024 9:20 AM MODULAR SET CREW MEMBER Pulse 86 06/02/2024 9:20 AM MODULAR SET CREW MEMBER Temperature 36.3 ??C (97.3 ??F) 06/02/2024 9:20 AM CS T Respiratory Rate 12 03/09/2024 9:32 AM CDT Oxygen Saturation 99% 06/02/2024 9:20 AM MODULAR SET CREW MEMBER Inhaled Oxygen Concentration - - Weight 88 kg (194 lb) 06/02/2024 9:20 AM MODULAR SET CREW MEMBER Height 162.6 cm (5' 4 ) 06/02/2024 9:20 AM MODULAR SET CREW MEMBER Body Mass Index 33.3 06/02/2024 9:20 AM MODULAR SET CREW MEMBER Plan of Treatment Upcoming Encounters Date Type Department Care Team (Late st Contact Info) Description 06/30/2024 10:00 AM MODULAR SET CREW MEMBER [facility] [address], [address] [place] [address] Raul Young MD [address] [place] [address] Brandi Coffey, PT [place] Discharge Disposition: Discharged to home or Selfcare 08/31/2024 9:30 AM CDT [facility] [place] [address] [place] [id number] Tim Altman MD [address] [place] [place] [address] Health Maintenance Due Date Last Done Comments TdaP Immunization 1955 SARS-COV-2 Immunization (#1) 08/15/1959 Colonoscopy 08/15/1999 Respiratory Syncytial Virus (RSV) Immunization (Adult) (1 - Risk 60-74 years 1-dose series) 2014 Immunochemical Fecal Occult Blood 04/15/2022 04/15/2021, 12/30/2018, 12/17/2017 DEXA Bone Density 12/18/2022 12/18/2020, , 01/06/2018, Additional history exists Cologuard 05/20/2024 Colorectal Cancer Screening 05/20/2024 Mammogram 08/28/2024 08/28/2022, 10/2020, 12/30/2018, Additional history exists Hepatitis C [...] Procedure Name Priority Date/Time Associated Diagnosis Comments COMPLETE BLOOD COUNT (CBC) WITH DIFF 06/17/2024 12:00 AM MODULAR SET CREW MEMBER BASIC METABOLIC PANEL W/ CALCIUM TOTAL 06/17/2024 12:00 AM MODULAR SET CREW MEMBER ORTHOPEDIC SURGERY CONSULT 06/16/2024 12:00 AM MODULAR SET CREW MEMBER XR - LOWER EXTREMITY 06/16/2024 12:00 AM MODULAR SET CREW MEMBER OUTPATIENT ABO & RH W/ ANTIBODY SCREEN 06/10/2024 12:00 AM MODULAR SET CREW MEMBER LAB - MISCELLANEOUS 06/10/2024 1 2:00 AM MODULAR SET CREW MEMBER LAB - MISCELLANEOUS 06/10/2024 1 2:00 AM MODULAR SET CREW MEMBER EKG SCAN 06/02/2024 12:00 AM MODULAR SET CREW MEMBER CBC WITH AUTO DIFFERENTIAL Routine 05/10/2024 8:19 AM MODULAR SET CREW MEMBER Pre-op evaluation HEMOGLOBIN A1C W/ ESTIMATED GLUCOSE Routine 05/10/2024 8:19 AM MODULAR SET CREW MEMBER Hyperglycemia CMP (COMPREHENSIVE METABOLIC PANEL) Routine 05/10/2024 8:19 AM MODULAR SET CREW MEMBER Pre-op evaluation COMPLETE BLOOD COUNT (CBC) WITH DIFF Routine 05/10/2024 8:19 AM MODULAR SET CREW MEMBER Pre-op evaluation HEMOGLOBIN, A1C 05/10/2024 12:00 AM MODULAR SET CREW MEMBER COMPLETE BLOOD COUNT (CBC) WITH DIFF 05/10/2024 12:00 AM MODULAR SET CREW MEMBER CMP (COMPREHENSIVE METABOLIC PANEL) 05/10/2024 12:00 AM MODULAR SET CREW MEMBER RHEUMATOLOGY CONSULT 04/19/2024 12:00 AM MODULAR SET CREW MEMBER CT - LOWER EXTREMITY 04/12/2024 12:00 AM [...] Recently Relevant to Health Maintenance Results * COMPLETE BLOOD COUNT (CBC) WITH DIFF (06/17/2024 12:00 AM MODULAR SET CREW MEMBER) Only the most recent of2 resultswithin the time period is included. 06/17/2024 us Provider Scan HEMATOLOGY ORDERABLES Final Resu lt Performing Organization Address [facility] de Phone Number SCAN * BASIC METABOLIC PANEL W/ CALCIUM TOTAL (06/17/2024 12:00 AM MODULAR SET CREW MEMBER) 06/17/2024 us Provider Scan CHEMISTRY ORDERABLES Final Resul t Performing Organization Address [facility] de Phone Number SCAN * XR - LOWER EXTREMITY (06/16/2024 12:00 AM MODULAR SET CREW MEMBER) Only the most recent of2 resultswithin the time period is included. 06/16/2024 us Provider Scan IMG DIAGNOSTIC ORDERABLES Final Result Performing Organization Address [facility] de Phone Number SCAN * ORTHOPEDIC SURGERY CONSULT (06/16/2024 12:00 AM MODULAR SET CREW MEMBER) 06/16/2024 us Provider Scan GENERIC SCAN ORDERS CONSULT Bety l Result Performing Organization Address [facility] de Phone Number SCAN * LAB - MISCELLANEOUS (06/10/2024 12:00 AM MODULAR SET CREW MEMBER) Only the most recent of2 resultswithin the time period is included. 06/10/2024 us Provider Scan CHEMISTRY ORDERABLES Final Resul t Performing Organization Address [facility] Co de Phone Number SCAN * OUTPATIENT ABO & RH W/ ANTIBODY SCREEN (06/10/2024 12:00 AM MODULAR SET CREW MEMBER) 06/10/2024 us Provider Scan BLOOD BANK ORDERABLES Final Resu lt Performing Organization Address [facility] Co de Phone Number SCAN * EKG SCAN (06/02/2024 12:00 AM MODULAR SET CREW MEMBER) 06/02/2024 us Provider Scan IMG ECG ORDERABLES Final Result Performing Organization Address [facility] de Phone Number RESULTING AGENCY * HEMOGLOBIN A1C W/ ESTIMATED GLUCOSE (05/10/2024 8:19 AM MODULAR SET CREW MEMBER) HGB-A1C 5.6 4.0 - 6.0 % 05/10/2024 3:37 PM MODULAR SET CREW MEMBER [facility] Est Average Glucose 114.0 mg/dL 05/10/2024 3:37 PM MODULAR SET CREW MEMBER [facility] Blood Venipuncture / Unknown 05/10/2024 8:19 AM MODULAR SET CREW MEMBER 05/10/2024 8:19 AM MODULAR SET CREW MEMBER Narrative [facility] - 05/10/2024 3:37 PM MODULAR SET CREW MEMBER HEMOGLOBIN A1C: DIABETIC PATIENTS: WELL-CONTROLLED: ?? 6.2 - 7.0 INTERMEDIATE WELL-CONTROLLED: ??7.0 - 9.0 POORLY-CONTROLLED: ??>9.0 us Tim Altman MD CHEMISTRY ORDERABLES Final Result Performing Organization Address City/[facility] Co de Phone Number [facility] [address] [place] [address] * (ABNORMAL) CBC WITH AUTO DIFFERENTIAL (05/10/2024 8:19 AM MODULAR SET CREW MEMBER) WBC 4.61 4.00 - 12.00 10(3)/mcL 05/10/2024 5:53 PM [facility] RBC 4.16 3.80 - 5.30 10(6)/mcL 05/10/2024 5:53 PM [facility] HEMOGLOBIN (HGB) 14.1 12.0 - 15.8 g/dL 05/10/2024 5:53 PM [facility] HEMATOCRIT (HCT) 42.1 36.0 - 47.0 % 05/10/2024 5:53 PM [facility] MCV 101.2(H) 82.0 - 96.0 fL 05/10/2024 5:53 PM [facility] MCH 33.9 26.0 - 34.0 pg 05/10/2024 5:53 PM [facility] MCHC 33.5 31.0 - 36.0 g/dL 05/10/2024 5:53 PM [facility] PLATELET COUNT 175 140 - 440 10(3)/mcL 05/10/2024 5:53 PM [facility] RDW 14.2 11.8 - 15.5 % 05/10/2024 5:53 PM [facility] MPV 10.9 9.7 - 12.4 fL 05/10/2024 5:53 PM [facility] NEUTROPHILS 49.6 47.0 - 73.0 % 05/10/2024 5:53 PM [facility] LYMPHOCYTES 42.7(H) 18.0 - 42.0 % 05/10/2024 5:53 PM [facility] MONOCYTES 6.3 4.0 - 12.0 % 05/10/2024 5:53 PM [facility] EOSINOPHILS 0.7 0.0 - 5.0 % 05/10/2024 5:53 PM [facility] BASOPHILS 0.7 0.0 - 1.0 % 05/10/2024 5:53 PM [facility] ABSOLUTE NEUTROPHILS 2.29 1.60 - 7.70 10(3)/mcL 05/10/2024 5:53 PM [facility] ABSOLUTE LYMPHOCYTES 1.97 1.30 - 3.20 10(3)/[facility] 05/10/2024 5:53 PM MODULAR SET CREW MEMBER [facility] ABSOLUTE MONOCYTES 0.29 0.20 - 1.00 10(3)/[facility] 05/10/2024 5:53 PM MODULAR SET CREW MEMBER [facility] ABSOLUTE EOSINOPHIL 0.03 0.00 - 0.40 10(3)/[facility] 05/10/2024 5:53 PM MODULAR SET CREW MEMBER [facility] ABSOLUTE BASOPHILS 0.03 0.00 - 0.10 10(3)/[facility] 05/10/2024 5:53 PM MODULAR SET CREW MEMBER [facility] NRBC PER 100 WBC 0 05/10/20 5:53 PM [facility] Blood Venipuncture / Unknown 05/10/2024 8:19 AM MODULAR SET CREW MEMBER 05/10/2024 8:19 AM MODULAR SET CREW MEMBER Tim Altman MD HEMATOLOGY ORDERABLES Final Result [facility] [address] [place] [address] * (ABNORMAL) CMP (COMPREHENSIVE METABOLIC PANEL) (05/10/2024 8:19 AM MODULAR SET CREW MEMBER) Only the most recent of2 resultswithin the time period is included. SODIUM 139 136 - 145 mmol/L 05/10/2024 3:44 PM [facility] POTASSIUM 4.5 3.5 - 5.1 mmol/L 05/10/2024 3:44 PM [facility] CHLORIDE 104 98 - 107 mmol/L 05/10/2024 3:44 PM [facility] CO2, VENOUS 22 22 - 30 mmol/L 05/10/2024 3:44 PM [facility] ANION GAP 17.5 <18.0 mmol/L 05/10/2024 3:44 PM [facility] GLUCOSE 95 70 - 99 mg/dL 05/10/2024 3:44 PM [facility] BUN 17 10 - 20 mg/dL 05/10/2024 3:44 PM [facility] CREATININE, BLOOD 0.83 0.60 - 1.00 mg/dL 05/10/2024 3:44 PM [facility] BUN/CREATININE RATIO 20 12 - 20 ratio 05/10/2024 3:44 PM [facility] TOTAL PROTEIN 7.4 6.3 - 8.2 g/dL 05/10/2024 3:44 PM [facility] ALBUMIN 4.3 3.5 - 5.0 g/dL 05/10/2024 3:44 PM [facility] A/G RATIO 1.4 1.0 - 2.2 05/10/2024 3:44 PM [facility] CALCIUM 10.0 8.7 - 10.5 mg/dL 05/10/2024 3:44 PM [facility] T BILI 0.6 0.2 - 1.2 mg/dL 05/10/2024 3:44 PM [facility] SGOT (AST) 35(H) 5 - 34 U/L 05/10/2024 3:44 PM [facility] SGPT (ALT) 6 0 - 55 U/L 05/10/2024 3:44 PM [facility] ALKALINE PHOSPHATASE 53 40 - 150 U/L 05/10/2024 3:44 PM [facility] IS THE PATIENT REQUIRED TO BE FASTING? No 05/10/2024 3:44 PM [facility] HAS THE PATIENT BEEN FASTING? Yes 05/10/2024 3:44 PM [facility] GFR, ESTIMATED >60 >=60 05/10/2024 3:44 PM [facility] Comment: Creatinine Clearance is the preferred criteria for selecting drug dose adjustments in renally impaired patients. ??The GFR is provided as additional pertinent clinical information. GFR is reported in mL/min/1.73 sq m. Calculation based on the Chronic Kidney Disease Epidemiology Collaboration (CKD- EPI) equation refit without adjustment for race. GFR, EST. >60 >=60 024 3:44 PM MODULAR SET CREW MEMBER [facility] GFR, EST. NONAFRICAN >60 >=60 05/10/2024 3:44 PM MODULAR SET CREW MEMBER [facility] Blood Venipuncture / Unknown 05/10/2024 8:19 AM MODULAR SET CREW MEMBER 05/10/2024 8:19 AM MODULAR SET CREW MEMBER us Tim Altman MD CHEMISTRY ORDERABLES Final Result Performing Organization Address [facility] Co de Phone Number [facility] [address] [place] [address] * HEMOGLOBIN, A1C (05/10/2024 12:00 AM MODULAR SET CREW MEMBER) HGB-A1C 5.6 SCAN 05/10/2024 us Tim Altman MD CHEMISTRY ORDERABLES Final Result Performing Organization Address [facility]/ZIP Co de Phone Number SCAN * RHEUMATOLOGY CONSULT (04/19/2024 12:00 AM MODULAR SET CREW MEMBER) 04/19/2024 us Provider Scan GENERIC SCAN ORDERS CONSULT Bety l Result Performing Organization Address [facility] Co de Phone Number SCAN * CT - LOWER EXTREMITY (04/12/2024 12:00 AM CDT) 04/12/2024 us Provider Scan IMG CT ORDERABLES Final Result Performing Organization Address [facility] Co de Phone Number SCAN * XR - ABDOMEN/PELVIS (04/04/2024 12:00 AM CDT) 04/04/2024 us Provider Scan IMG DIAGNOSTIC ORDERABLES Final Result SCAN * YULIET SCREENING BILATERAL DIGITAL W [...] copy. Current study was also evaluated with Chomp version 7.2. 2D digital mammographic views, as well as 3D digital tomosynthesis were performed in the CC and MLO projections. ?? CLINICAL: Routine screening. Patient has no complaints. She reports a weight loss of 25 pounds. No personal history of cancer. Two maternal aunts had breast cancer. ?? COMPARISONS: Comparison is made to exams dated: ??12/30/2018, 01/06/2018, 12/17/2017, and [facility] ?? BREAST TISSUE:There are scattered fibroglandular [...] Meme Espitia M.D. ? ab/penrad:08/28/2022 16:50:56 ?? Lead Mechanic(s): Cristina ??RT Manuela(R)(M), [facility] letter sent: Normal Exam ?? Reading location: [facility] BI-RADS: 1 Negative Procedure Note [...] exams dated: 12/30/2018, 01/06/2018, 12/17/2017, and 12/11/2016 [facility]. BREAST TISSUE:There are scattered fibroglandular densities in [...] exam. Electronically signed by: Meme zambrano/andrea:08/28/2022 16:50:56 Lead Mechanic(s): RT Sasha(R)(M), [facility] letter sent: Normal Exam Reading location: [facility] BI-RADS: 1 Negative Tim Altman MD IMG MAMMO ORDERABLES Final Result * YULIET BONE DENSITOMETRY AXIAL SKELETON (12/18/2020 [...] old ??F with given history of screening. Advanced Seal Delivery System/Model: ?? Seeker Wireless (S/N [id number]) CLINICAL INFORMATION: ??Current height: ??65 inches ? [...] PM T: ??12/18/2020 12:15 PM Report ID: [id number] Reading Location: ??[id number] Procedure Note Reinaldo Silvestre MD - 12/18/2020 EXAM DESCRIPTION: [facility] BONE DENSITOMETRY AXIAL SKELETON REASON FOR STUDY: 65 y/o year old F with given history of screening. Advanced Seal Delivery System/Model: Seeker Wireless (S/N [id number]) CLINICAL INFORMATION: Current height: 65 inches Maximum [...] Reinaldo Silvestre M.D. AG: YADIRA Report ID: [id number] Reading Location: [id number] IMPRESSION: Low bone mass. Fracture risk assessment [...] and Treatment of Osteoporosis (http://www.nof.org/professionals/clinical-guidelines) Marilyn Campos ELEVATOR ATTENDANT, THEATRICAL SCENIC DESIGNER IMG DEXA ORDERABLES Final Result from Last 3 Months or Most Recently Relevant to Health Maintenance Insurance MEDICARE [facility] Care Teams Mirror Painter Relationship Specialty Start Date End Date Tim Altman MD [address] [place] [address] PCP - General Internal Medicine 12/03/15
--- OUTSIDE RECORDS SUMMARY | 2024-06-22 21:57 | XMS_ITS | Encounter Summary ---
Author Organization [facility] Address [address] [place] [address] [place] [address] Care Team Providers Care Assembler Billiard Table Name Role Phone Tim Altman MD Primary Care Provider [phone] Reason for Visit * Reason Onset Date Comments Forms 01/23/2011 Encounter Details Date Type Department Care Team (Late st Contact Info) Description 01/23/2011 Telephone [facility] Medical [facility] - Rheumatology [address] [place] [address] Casper Smith MD Forms Social History Tobacco [...] disability -- cecelia [employer] [address] [place] [id number] ph # is [phone] or toll free is [phone] documented in this encounter Plan of Treatment Not on file documented as of this encounter Visit Diagnoses Not on filedocumented in this encounter Care Teams Assembler Billiard Table Relationship Specialty Start Date End Date Tim Altman MD PCP - General 10/18/10 documented as of this encounter
--- OUTSIDE RECORDS SUMMARY | 2024-06-22 21:57 | XMS_ITS | Encounter Summary ---
Author Organization [facility] Address [address] [place] [address] Phone Care Team Providers Care Log Hauler Name Role Phone Tim Altman MD Primary Care Provider Reason for Visit * Reason Onset Date Comments Medication Refill 10/02/2022 Encounter Details Date Type Department Care Team (Late st Contact Info) Description 10/02/2022 Refill [facility] [place] [address] [facility] [place] [address] Tim Altman MD [address] [facility] [place] [address] Medication Refill Social History Tobacco [...] Dept 07/09/22 Office Visit Tim [facility] 01/14/22 Office Visit Tim Altman MD [facility] 12/30/21 Telemedicine Tim Altman MD [facility] Showing recent visits within past 365 days [...] st Contact Info) Description 06/30/2024 10:00 AM STUDENT MINISTRY PASTOR [facility] [address] [place] [address] Raul Young MD [address] [place] [address] Brandi Coffey, PT [place] Discharge Disposition: Discharged to home or Selfcare 08/31/2024 9:30 AM CDT Office Visit [facility] [place] [address] [place] [address] Tim Altman MD [address] [place] [address] documented as of this encounter Visit Diagnoses Not on filedocumented in this encounter Additional Health Concerns Assessment Noted Time PHQ-9 Depression Total Score: 0 06/18/19 21 3:00 PM STUDENT MINISTRY PASTOR documented as of this encounter Care Teams Log Hauler Relationship Specialty Start Date End Date Tim Altman MD [address] [place] [address] PCP - General Internal Medicine 12/03/15 documented as of this encounter
--- OUTSIDE RECORDS SUMMARY | 2024-06-22 21:57 | XMS_ITS | Encounter Summary ---
Author Organization [facility] Address [address] [place] [address] Phone Care Team Providers Care Sales Account Specialist Name Role Phone Tim Altman MD Primary Care Provider Reason for Visit * Reason Onset Date Comments Results 09/02/2022 Encounter Details Date Type Department Care Team (Late st Contact Info) Description 09/02/2022 Telephone [facility] [place] [address] [place] [address] Tim Altman MD [address] [place] [address] Results Social History Tobacco Use [...] call office. * Telephone Encounter - Courtney Gzuman RN - 09/02/2022 9:56 AM CDT ----- [...] st Contact Info) Description 06/30/2024 10:00 AM PROCESS STEWARD Physical Therapy [facility] [address] [facility], [facility] [address] [place] [address] Raul Young MD [address] [place] [address] Brandi Coffey, PT [place] Discharge Disposition: Discharged to home or Selfcare 08/31/2024 9:30 AM CDT Office Visit [facility] - Internal Medicine [place] [address] [place] [address] Tim Altman MD [address] [place] [address] documented as of this encounter Visit Diagnoses Not on filedocumented in this encounter Additional Health Concerns Assessment Noted Time PHQ-9 Depression Total Score: 0 06/18/19 21 3:00 PM PROCESS STEWARD documented as of this encounter Care Teams Sales Account Specialist Relationship Specialty Start Date End Date Tim Altman MD [address] [place] [address] PCP - General Internal Medicine 12/03/15 documented as of this encounter
--- OUTSIDE RECORDS SUMMARY | 2024-06-22 21:57 | XMS_ITS | Encounter Summary ---
Author Organization [facility] Address [facility] [place] [address] Care Team Providers Care Communication Coordinator Name Role Phone Tim Altman MD Primary Care Provider Reason for Visit * Reason Onset Date Comments Question 05/01/2011 Encounter Details Date Type Department Care Team (Late st Contact Info) Description 05/01/2011 Telephone [facility] Orthopedics [address] [place] [address] Vani Waldrop MD [address] [place] [address] Question Social History Tobacco Use [...] synvisc one injection lft knee. Approved by [employer], via synvisc connection. [employer]OOK * Telephone Encounter - Charis Justice - 05/01/2011 11:14 AM CST Pt called back with another phone number to call her at later today [phone] cell [employer]OOK * Telephone Encounter - Charis Justice - 05/01/2011 9:15 AM CST Pt called today to see if you have gotten approval from insurance company for her injection Please call pt [employer]OD [employer]OOK documented in this encounter Plan of Treatment Not on file documented as of this encounter Visit Diagnoses Not on filedocumented in this encounter Care Teams Communication Coordinator Relationship Specialty Start Date End Date Tim Altman MD PCP - General 10/18/10 documented as of this encounter
--- OUTSIDE RECORDS SUMMARY | 2024-06-22 21:57 | XMS_ITS | Encounter Summary ---
Author Organization [facility] Address [address] [place] [address] Phone Care Team Providers Care Security Investigator Name Role Phone Tim Altman MD Primary Care Provider [phone] Reason for Visit * Reason Comments Medication Refill Encounter Details Date Type Department Care Team (Late st Contact Info) Description 03/28/2023 Refill [facility] - [place] [address] [place] [id number] Sangita Best, [facility] [address] [place] [address] Medication Refill Social History Tobacco [...] AM CDT Medication(s) refilled and signed per [facility] Medication Refill Standing Order for Pediatricand [...] Dept 01/07/23 Office Visit Tim Altman MD [facility] [address] 07/09/22 Office Visit Tim Altman MD [facility] [place] Showing recent visits within past 365 days and meeting all other requirements Future Appointments No visits were found meeting these conditions. Showing future appointments within next 90 days and meeting all other requirements documented in this encounter Plan of Treatment Upcoming Encounters Date Type Department Care Team (Late st Contact Info) Description 06/30/2024 10:00 AM PERSONAL HEALTH COACH Physical Therapy [facility] at [facility] [address] [facility], [address] [place] [phone] Raul Young MD [address] [place] [address] Brandi Coffey, PT [place] Discharge Disposition: Discharged to home or Selfcare 08/31/2024 9:30 AM CDT Office Visit [facility] - Internal Medicine - [place] [address] [place] [phone] Tim Altman MD [address] [place] [address] documented as of this encounter Visit Diagnoses Not on filedocumented in this encounter Additional Health Concerns Assessment Noted Time PHQ-9 Depression Total Score: 0 06/18/19 21 3:00 PM PERSONAL HEALTH COACH documented as of this encounter Care Teams Security Investigator Relationship Specialty Start Date End Date Tim Altman MD [address] [place] [address] PCP - General Internal Medicine 12/03/15 documented as of this encounter
--- OUTSIDE RECORDS SUMMARY | 2024-06-22 21:57 | XMS_ITS | Encounter Summary ---
Author Organization [facility] Address [facility] [facility] [place] [address] Care Team Providers Care Medical Record Technician Name Role Phone Tim Altman MD Primary Care Provider [phone] Vani Waldrop MD Unavailable [phone] Reason for Visit * Reason Comments Fibromyalgia follow up Pain Knee bilateral; left wors e Headache Pain Extremity bilateral legs burn and jump at night Encounter Details Date Type Department Care Team (Late st Contact Info) Description 05/15/2011 2:00 PM PATTERN GRADER Office Visit [facility] - Rheumatology [address] [place] [address] Casper Smith MD PMR (polymyalgia rheumatica) (HCC) [...] Comments Blood Pressure 128/86 05/15/2011 3:11 PM PATTERN GRADER Pulse 76 05/15/2011 3:11 PM PATTERN GRADER Temperature - - Respiratory Rate - - Oxygen Saturation - - Inhaled Oxygen Concentration - - Weight 115.1 kg (253 lb 12.8 oz) 05/15/2011 3:11 PM PATTERN GRADER Height 165.1 cm (5' 5 ) 05/15/2011 3:11 PM PATTERN GRADER Body Mass Index 42.23 05/15/2011 3:11 PM PATTERN GRADER documented in this encounter Progress Notes * Lisa Reece MA - 06/06/2011 1:15 PM CSTQuick Note: Pt aware of results. ERN GRADER * Lisa Reece MA - 05/16/2011 10:04 AM CSTQuick Note: Letter mailed to patient regarding lab results. ERN GRADER * Lisa Reece MA - 05/16/2011 10:04 AM CSTQuick Note: Letter mailed to patient regarding lab results. ERN GRADER * Casper Smith MD - 05/15/2011 3:34 [...] daily. 180 Tab 6 ??? nystatin (MYCOSTATIN) [id number] UNIT/ML suspension Take 5 mL by mouth [...] crutches, prosthesis, splint/brace, walker and wheelchair HEENT: SUQUAMISH , cerumen , anisocoria, retinal, hemorrhage, thrush, [...] abn 1st [facility], Flexor tend, Finger Deformity: Republic neck/ Boutonniere/ Mallet finger, Ulnar deviation, Dupuytren's, [...] Dr Cathie Wilkerson NeuroOpth, Dr Reaves Neurology ERN GRADER documented in this encounter Plan of Treatment Not on file documented as of this encounter Procedures Procedure Name Priority Date/Time Associated Diagnosis Comments C-REACTIVE PROTEIN Routine 05/15/2011 3: 16 PM PATTERN GRADER PMR (polymyalgia rheumatica) (HCC) ERYTHROCYTE SEDIMENTATION RATE Routine 05/15/2011 3:16 PM PATTERN GRADER PMR (polymyalgia rheumatica) (HCC) CBC W AUTO DIFFERENTIAL Routine 05/15/2011 3:16 PM PATTERN GRADER High risk medications (not anticoagulants) long-term use COMPREHENSIVE METABOLIC PANEL Routine 05/15/2011 3:16 PM PATTERN GRADER High risk medications (not anticoagulants) long-term use HEPATITIS B SURFACE ANTIGEN W RFLX CONFIRMATION Routine 05/15/2011 3:16 PM PATTERN GRADER High risk medications (not anticoagulants) long-term use HEPATITIS C ANTIBODY Routine 05/15/2011 3:16 PM PATTERN GRADER High risk medications (not anticoagulants) long-term use documented in this encounter Results * US EXTREMITY LEFT COMPLT NONVASC (05/19/2011 2:50 PM PATTERN GRADER) Anatomical Region Laterality Modality Lower Extremity, Upper Extremity Other Narrative 05/19/2011 2:50 PM PATTERN GRADER Casper Smith MD ? 05/19/2011 ??2:50 PM [...] the diagnostic impression are recorded by the contact center specialist under the direction of the attending physician [...] MD directly to discuss this case at [phone]. Procedure Note Casper Smith MD - 05/19/2011 [...] effect the diagnosticimpression are recorded by the contact center specialist under the direction of theattending physician and [...] MD directly to discuss this case at [phone]. Casper Smith MD US ORDERABLES * US EXTREMITY NON VASCULAR RIGHT (05/19/2011 2:50 PM PATTERN GRADER) Anatomical Region Laterality Modality Lower Extremity, Upper Extremity Other Narrative 05/19/2011 2:50 PM PATTERN GRADER Casper Smith MD ? 05/19/2011 ??2:50 PM [...] the diagnostic impression are recorded by the contact center specialist under the direction of the attending physician [...] MD directly to discuss this case at [phone]. Procedure Note Casper Smith MD - 05/19/2011 [...] effect the diagnosticimpression are recorded by the contact center specialist under the direction of theattending physician and [...] MD directly to discuss this case at [phone]. Casper Smith MD US ORDERABLES * HEPATITIS C ANTIBODY (05/15/2011 3:16 PM PATTERN GRADER) Hepatitis C Virus Antibody <0.1 0.0 - [...] BLOOD SPECIMEN / Unknown 05/15/2011 3:16 PM PATTERN GRADER 05/15/2011 8:51 PM PATTERN GRADER Narrative [facility] INSURANCE BILL - 05/16/2011 7:24 AM PATTERN GRADER A courtesy copy of this report has been sent to [phone]. Resulting Agency Comment [facility] [employer] ??[facility]ly [facility] [phone] Casper Smith MD LAB - CHEMISTRY CHELI SAAB Performing Organization Address City/[facility]/ZIP Co de Phone Number [facility] INSURANCE BILL * HEPATITIS B SURFACE ANTIGEN (05/15/2011 3:16 PM PATTERN GRADER) Hepatitis B Virus Surface Antigen Negative Negative [facility] INSURANCE BILL Blood specimen (specimen) BLOOD SPECIMEN / Unknown 05/15/2011 3:16 PM PATTERN GRADER 05/15/2011 8:51 PM PATTERN GRADER Narrative [facility] INSURANCE BILL - 05/16/2011 7:24 AM PATTERN GRADER A courtesy copy of this report has been sent to [phone]. Resulting Agency Comment [facility] [employer] [facility] ??[facility]ly [facility] [phone] Casper Smith MD LAB - CHEMISTRY CHELI SAAB Performing Organization Address City/[facility] Co de Phone Number [facility] INSURANCE BILL * C-REACTIVE PROTEIN (05/15/2011 3:16 PM PATTERN GRADER) C-Reactive Protein 1.0 0.0 - 4.9 mg/L [facility] INSURANCE BILL Blood specimen (specimen) BLOOD SPECIMEN / Unknown 05/15/2011 3:16 PM PATTERN GRADER 05/15/2011 8:51 PM PATTERN GRADER Narrative [facility] INSURANCE BILL - 05/16/2011 7:24 AM PATTERN GRADER A courtesy copy of this report has been sent to [phone]. Resulting Agency Comment [facility] [address] [facility] ??Formerly [facility] [id number] Casper Smith MD LAB - CHEMISTRY CHELI SAAB [facility] Organization Address City/State/ZIP Co de Phone Number [facility] INSURANCE BILL * (ABNORMAL) COMPREHENSIVE METABOLIC PANEL (05/15/2011 3:16 PM PATTERN GRADER) Glucose 76 65 - 99 mg/dL [facility] [...] BLOOD SPECIMEN / Unknown 05/15/2011 3:16 PM PATTERN GRADER 05/15/2011 8:51 PM PATTERN GRADER Narrative [facility] INSURANCE BILL - 05/16/2011 7:24 AM PATTERN GRADER A courtesy copy of this report has been sent to [phone]. Resulting Agency Comment [facility] [address] ??[facility]ly [facility] [phone] Casper Smith MD LAB - CHEMISTRY CHELI SAAB [facility] INSURANCE BILL * CBC W AUTO DIFFERENTIAL (05/15/2011 3:16 PM PATTERN GRADER) WBC 8.3 4.0 - 10.5 x10E3/uL [facility] [...] BLOOD SPECIMEN / Unknown 05/15/2011 3:16 PM PATTERN GRADER 05/15/2011 8:51 PM PATTERN GRADER Narrative [facility] INSURANCE BILL - 05/16/2011 7:24 AM PATTERN GRADER A courtesy copy of this report has been sent to [phone]. Resulting Agency Comment [facility] [place] [id number] [facility] ??[facility]ly [facility] [phone] Casper Smith MD LAB - HEMATOLOGY ORD AppistryBLES [facility] INSURANCE BILL * SED RATE WESTERGREN AUTO (05/15/2011 3:16 PM PATTERN GRADER) Erythrocyte Sedimentation Rate Westergren 4 0 - 56 mm/hr [facility] INSURANCE BILL Blood specimen (specimen) BLOOD SPECIMEN / Unknown 05/15/2011 3:16 PM PATTERN GRADER 05/15/2011 8:51 PM PATTERN GRADER Narrative [facility] INSURANCE BILL - 05/16/2011 7:24 AM PATTERN GRADER A courtesy copy of this report has been sent to [phone]. Resulting Agency Comment [facility] [place] [id number] [facility] ??[facility]ly [facility] [id number] Casper Smith MD LAB - HEMATOLOGY ORD [...] limb documented in this encounter Care Teams Medical Record Technician Relationship Specialty Start Date End Date Tim Altman MD PCP - General 10/18/10 [place] [address] [address] [address] Orthopedic Surgery 05/02/11 documented as of this encounter
--- OUTSIDE RECORDS SUMMARY | 2024-06-22 21:57 | XMS_ITS | Encounter Summary ---
Author Organization [facility] Address [address] [place], [place] [address] [address] Care Team Providers Care Field Contact Person Name Role Phone Tim Altman MD Primary Care Provider [phone] Reason for Visit * Reason Comments Lower Extremity Problem l knee swollen , painful,r big toe swollen Encounter Details Date Type Department Care Team (Late st Contact Info) Description 01/23/2011 10:20 AM CDT Office Visit [facility] - Family Medicine [address] [place] [address] Karly Snyder, FOOT AND ANKLE SURGEON-EQUIPMENT MAINTENANCE SUPERINTENDENT [address] [address] Numbness and tingling (Primary Dx); [...] SED RATE AUTO (ESR), C-REACTIVE PROTEIN (CRP), MD DRAIN/INJECTLARGE JOINT/BURSA, METHYLPREDNISOLONE ACETATE 40 MG INJ [...] AUTO (ESR) ??? C-REACTIVE PROTEIN (CRP) ??? MD DRAIN/INJECT LARGE JOINT/BURSA ??? predniSONE (DELTASONE) 10 [...] medial knee. No fracture ordislocation. Karly Snyder LISA-EQUIPMENT MAINTENANCE SUPERINTENDENT DIAGNOSTIC IMAGIN G ORDERABLES * C-REACTIVE PROTEIN (CRP) (01/23/2011 10:17 AM CDT) C-Reactive Protein 0.8 0.0 - 4.9 mg/L [facility] ACCOUNT BILL BLOOD SPECIMEN / Unknown 01/23/2011 10:17 AM CDT 01/23/2011 5:02 PM CDT Narrative Resulting Agency Comment [facility] [address] [facility] ??[facility] [phone] Karly Snyder FOOT AND ANKLE SURGEON-EQUIPMENT MAINTENANCE SUPERINTENDENT LAB - CHEMISTRY O RDERABLES Performing Organization Address City/[facility]/ZIP Co de Phone Number [facility] ACCOUNT BILL * SED RATE AUTO (ESR) (01/23/2011 10:17 AM CDT) Erythrocyte Sedimentation Rate Westergren 4 0 - 56 mm/hr [facility] ACCOUNT BILL BLOOD SPECIMEN / Unknown 01/23/2011 10:17 AM CDT 01/23/2011 5:02 PM CDT Narrative Resulting Agency Comment [facility] [address] ??[facility] [phone] Karly Snyder FOOT AND ANKLE SURGEON-EQUIPMENT MAINTENANCE SUPERINTENDENT LAB - HEMATOLOGY ORDERABLES Performing Organization Address City/[facility]/ZIP Co de Phone Number [facility] ACCOUNT BILL [...] leg documented in this encounter Care Teams Field Contact Person Relationship Specialty Start Date End Date Tim Altman MD PCP - General 10/18/10 documented as of this encounter
--- OUTSIDE RECORDS SUMMARY | 2024-06-22 21:57 | XMS_ITS | Encounter Summary ---
Author Organization [facility] Address [address] [place] [address] Phone Care Team Providers Care Linemarker Name Role Phone Tim Altman MD Primary Care Provider Encounter Details Date Type Department Care Team (Late st Contact Info) Description 01/08/2023 Refill [facility] - [place] [address] [place] [address] Tim Altman MD [address] [facility] [place] [address] Social History Tobacco Use Types [...] st Contact Info) Description 06/30/2024 10:00 AM NEUROLOGY PROFESSOR Physical Therapy [facility] [address], [address] [place] [address] Raul Young MD [address] [place] [address] Brandi Coffey, PT [place] Discharge Disposition: Discharged to home or Selfcare 08/31/2024 9:30 AM CDT Office Visit [facility] - [place] [address] [place] [address] Tim Altman MD [address] [place] [address] documented as of this encounter Visit Diagnoses Not on filedocumented in this encounter Additional Health Concerns Assessment Noted Time PHQ-9 Depression Total Score: 0 06/18/19 21 3:00 PM NEUROLOGY PROFESSOR documented as of this encounter Care Teams Linemarker Relationship Specialty Start Date End Date Tim Altman MD [address] [place] [address] PCP - General Internal Medicine 12/03/15 documented as of this encounter
--- OUTSIDE RECORDS SUMMARY | 2024-06-22 21:57 | XMS_ITS | Encounter Summary ---
Author Organization [facility] Address [address] [place] [address] Phone Care Team Providers Care Electrical Repairer Name Role Phone Tim Altman MD Primary Care Provider Reason for Visit * Reason Onset Date Comments Results 04/07/2024 Encounter Details Date Type Department Care Team (Late st Contact Info) Description 04/07/2024 Telephone [facility] - [place] [address] [place] [address] Sangita Best, [facility] [address] [place] [address] Results Social History Tobacco Use Types Packs/Day Years Used Date Smoking Tobacco: Former Cigarettes Q uit: 07/23/1969 Passive Smoke Exposure: Past Smokeless Tobacco: Never Alcohol Use Standard Drinks/Week Comments Not Currently 0 (1 standard drink = 0.6 oz pur e alcohol) [facility] Utilities Answer Date Recorded In the past 12 months has [place], gas, oil, or water company threatened to [...] often do you attend chur ch or congregational services? Never 09/03/2023 Do you belong to [...] Total Score - Questions 1-9 0 08/14 [facility] - [...] place to sleep or slept in a skilled nursing (including now)? No 09/03/2023 Sexually Active Control [...] to follow up with Dr. Young in [place]. States she was originally told there was [...] st Contact Info) Description 06/30/2024 10:00 AM CURTAIN WORKER Physical Therapy [facility] at [facility] [address] [place] [address] Raul Young MD [address] [place] [address] Brandi Coffey, PT [place] Discharge Disposition: Discharged to home or Selfcare 08/31/2024 9:30 AM CDT Office Visit [facility] - Internal Medicine [facility] [address] [place] [address] Tim Altman MD [address] [place] [address] documented as of this encounter Visit Diagnoses Not on filedocumented in this encounter Additional Health Concerns Assessment Noted Time PHQ-9 Depression Total Score: 0 09/03/19 24 9:32 AM CDT documented as of this encounter Care Teams Electrical Repairer Relationship Specialty Start Date End Date Tim Altman MD [address] [place] [address] PCP - General Internal Medicine 12/03/15 documented as of this encounter
--- OUTSIDE RECORDS SUMMARY | 2024-06-22 21:57 | XMS_ITS | Encounter Summary ---
Author Organization [employer] Care Team Providers Care Photographic Double Name Role Phone Tim Altman MD Primary Care Provider [phone]- [phone] Encounter Details Date Type Department Care Team (Latest Contact Info) Description 09/03/2023 Travel Social History Tobacco Use Types Packs/Day Years Used Date Smoking Tobacco: Former Cigarettes Q uit: 07/23/1969 Passive Smoke Exposure: Past Smokeless Tobacco: Never Alcohol Use Standard Drinks/Week Comments Not Currently 0 (1 standard drink = 0.6 oz pur e alcohol) [facility] Utilities Answer Date Recorded In the past 12 months has [employer], gas, oil, or water company threatened [...] often do you attend chur ch or voodoo services? Never 09/03/2023 Do you belong to [...] Total Score - Questions 1-9 0 08/14 [facility] - Occupational Stress Questionnaire Answer Date [...] place to sleep or slept in a prison (including now)? No 09/03/2023 Sexually Active Control [...] Contact Info) Description 06/30/2024 10:00 AM RISK MANAGEMENT INTERNSHIP [facility] [address] [place] [phone] Raul Young MD [address] [place] [address] Brandi Coffey, PT [place] Discharge Disposition: Discharged to home or Selfcare 08/31/2024 9:30 AM CDT Office Visit [facility] - Internal Medicine [facility] [address] [place] [phone] Tim Altman MD [address] [place] [address] documented as of this encounter Visit Diagnoses Not on filedocumented in this encounter Additional Health Concerns Assessment Noted Time PHQ-9 Depression Total Score: 0 09/03/19 24 9:32 AM CDT documented as of this encounter Care Teams Photographic Double Relationship Specialty Start Date End Date Tim Altman MD [address] [place] [address] PCP - General Internal Medicine 12/03/15 documented as of this encounter
--- OUTSIDE RECORDS SUMMARY | 2024-06-22 21:57 | XMS_ITS | Encounter Summary ---
Author Organization [employer] Care Team Providers Care Service Electrician Name Role Phone Tim Altman MD Primary Care Provider [phone]- [phone] Encounter Details Date Type Department Care Team (Latest Contact Info) Description 06/02/2024 Travel Social History Tobacco Use Types Packs/Day Years Used Date Smoking Tobacco: Former Cigarettes Q uit: 07/23/1969 Passive Smoke Exposure: Past Smokeless Tobacco: Never Alcohol Use Standard Drinks/Week Comments Not Currently 0 (1 standard drink = 0.6 oz pur e alcohol) [facility] Utilities Answer Date Recorded In the past 12 months has [employer], gas, oil, or water company threatened [...] often do you attend chur ch or congregation services? Never 09/03/2023 Do you belong to any clubs o r organizations such as oriental orthodox groups, unions, fraternal or athletic groups, or [...] Total Score - Questions 1-9 0 08/14 [facility] - Occupational Stress Questionnaire Answer [...] st Contact Info) Description 06/30/2024 10:00 AM ASSET SPECIALIST Physical Therapy [facility] at [facility] [address] [place] [address] Raul Young MD [address] [place] [address] Brandi Coffey, PT [place] Discharge Disposition: Discharged to home or Selfcare 08/31/2024 9:30 AM CDT [facility] [place] [address] [place] [address] Tim Altman MD [address] [place] [address] documented as of this encounter Visit Diagnoses Not on filedocumented in this encounter Additional Health Concerns Assessment Noted Time PHQ-9 Depression Total Score: 0 09/03/19 24 9:32 AM CDT documented as of this encounter Care Teams Service Electrician Relationship Specialty Start Date End Date Tim Altman MD [address] [place] [address] PCP - General Internal Medicine 12/03/15 documented as of this encounter
--- OUTSIDE RECORDS SUMMARY | 2024-06-22 21:57 | XMS_ITS | Encounter Summary ---
Author Organization [facility] Address [facility] [place] [address] Care Team Providers Care Disbursement Clerk Name Role Phone Tim Altman MD Primary Care Provider [phone]- [phone] Reason for Visit * Reason Onset Date Comments Results 04/30/2011 Encounter Details Date Type Department Care Team (Late st Contact Info) Description 04/30/2011 Telephone [facility] Orthopedics [address] [place] [address] Vani Waldrop MD [address] [place] [address] Results Social History Tobacco Use [...] have trouble making appt, ck with ed. OR PHP DEVELOPER * Telephone Encounter - Thi Barron - 04/30/2011 12:46 PM CST PATIENT CALLED TODAY BECAUSE YOU WERE CHECKING WITH HER INSURANCE, [employer], TO SEE IF THEY WOULD COVER SYNVISC ONE INJECTION. PLEASE CALL AT [phone]. OR PHP DEVELOPER documented in this encounter Plan of Treatment Not on file documented as of this encounter Visit Diagnoses Not on filedocumented in this encounter Care Teams Disbursement Clerk Relationship Specialty Start Date End Date Tim Altman MD PCP - General 10/18/10 documented as of this encounter
--- OUTSIDE RECORDS SUMMARY | 2024-06-22 21:57 | XMS_ITS | Encounter Summary ---
Author Organization [facility] Care Team Providers Care Service Or Work Dispatcher Name Role Phone Tim Altman MD Primary Care Provider [phone] Encounter Details Date Type Department Care Team [...] st Contact Info) Description 06/30/2024 10:00 AM BALING MACHINE TENDER Physical Therapy [facility] at [facility] [address] [place] [address] Raul Young MD [address] [place] [address] Brandi Coffey, PT [place] Discharge Disposition: Discharged to home or Selfcare 08/31/2024 9:30 AM CDT [facility] Visit [facility] - Internal Medicine [facility] [address] [place] [phone] Tim Altman MD [address] [place] [address] documented as of this encounter Visit Diagnoses Not on filedocumented in this encounter Additional Health Concerns Assessment Noted Time PHQ-9 Depression Total Score: 0 06/18/19 21 3:00 PM BALING MACHINE TENDER documented as of this encounter Care Teams Service Or Work Dispatcher Relationship Specialty Start Date End Date Tim Altman MD [address] [place] [address] PCP - General Internal Medicine 12/03/15 documented as of this encounter
--- OUTSIDE RECORDS SUMMARY | 2024-06-22 21:57 | XMS_ITS | Encounter Summary ---
Author Organization [facility] Address [address] [place] [address] Phone Care Team Providers Care Senior Communications Engineer Name Role Phone Tim Altman MD Primary Care Provider Sanaz Mendoza RN Unavailable Unavailable Reason for Visit * Reason Comments Medication Refill Encounter Details Date Type Department Care Team (Late st Contact Info) Description 09/15/2022 Refill [facility] - [place] [address] [facility] [place] [address] Tim Altman MD [address] [facility] [place] [address] Medication Refill Social History Tobacco [...] st Contact Info) Description 06/30/2024 10:00 AM PRICING/SIGNAGE TEAM MEMBER [facility] [address] [place] [address] Raul Young MD [address] [place] [address] Brandi Coffey, PT [place] Discharge Disposition: Discharged to home or Selfcare 08/31/2024 9:30 AM CDT Office Visit [facility] - Internal Medicine - [place] [address] [place] [address] Tim Altman MD [address] [place] [address] documented as of this encounter Visit Diagnoses Not on filedocumented in this encounter Additional Health Concerns Assessment Noted Time PHQ-9 Depression Total Score: 0 06/18/19 21 3:00 PM PRICING/SIGNAGE TEAM MEMBER documented as of this encounter Care Teams Senior Communications Engineer Relationship Specialty Start Date End Date Tim Altman MD [address] [place] [address] PCP - General Internal Medicine 12/03/15 Sanaz Mendoza, RN [place] Nurse Oracle Applications Analyst 03/09/24 03/09/24 documented as of this encounter
--- OUTSIDE RECORDS SUMMARY | 2024-06-22 21:57 | XMS_ITS | Encounter Summary ---
Author Organization [facility] Address [address] [place] [address] Phone Care Team Providers Care Lathmaker Name Role Phone Tim Altman MD Primary Care Provider Reason for Visit * Reason Comments Esophageal Reflux 6 mo f/u Dizziness Little blood in ears Encounter Details Date Type Department Care Team (Late st Contact Info) Description 09/03/2023 9:30 AM CDT Office Visit [facility] - [place] [address] [place] [address] Tim Altman MD [address] [place] [address] Essential hypertension, benign (Primary Dx); [...] drink = 0.6 oz pur e alcohol) [facility] Utilities Answer Date Recorded In the [...] any clubs o r organizations such as pentecostal groups, unions, fraternal or athletic groups, or [...] Total Score - Questions 1-9 0 08/14 [facility] - Occupational [...] - 09/03/2023 9:30 AM CDT PROGRESS NOTE [facility] [place] [address] PHONE: [phone] FAX: [phone] 09/03/2023 NAME: Lexi Mcneil, : 1955, Assessment [...] Take 1 Capsule by mouth daily. - zvhhpsyf-njdiacydo-tyqshnnigrwloe (CORTISPORIN) 3.5-49104-4 Solution; Place 3 Drops in left ear [...] Tablet metoprolol tartrate (LOPRESSOR) 25 MG Tablet rliwobzg-loypckgfu-tbbjsnadzxfopr (CORTISPORIN) 3.5-23290-7 Solution olopatadine (PATANOL) 0.1 % Solution omeprazole [...] Contact Info) Description 06/30/2024 10:00 AM ORDNANCE TECHNICIAN [facility] [address] [place] [address] Raul Young MD [address] [place] [address] Brandi Coffey, PT [place] Discharge Disposition: Discharged to home or Selfcare 08/31/2024 9:30 AM CDT Office Visit [facility] - Internal Medicine - [place] [address] [place] [address] Tim Altman MD [address] [place] [address] documented as of this encounter Visit Diagnoses [...] documented as of this encounter Care Teams Lathmaker Relationship Specialty Start Date End Date Tim Altman MD [address] [place] [address] PCP - General Internal Medicine 12/03/15 documented as of this encounter
--- OUTSIDE RECORDS SUMMARY | 2024-06-22 21:57 | XMS_ITS | Encounter Summary ---
Author Organization [facility] Address [address] [place], [place] [address] [address] Care Team Providers Care Client Advocate Name Role Phone Tim Altman MD Primary Care Provider [phone] Reason for Visit * Reason Onset Date Comments Follow-up 11/13/2010 Encounter Details Date Type Department Care Team (Late st Contact Info) Description 11/13/2010 Telephone [facility] Medical [facility] - Rheumatology [address] [place] [phone] Casper Smith MD Follow-up Social History Tobacco [...] unspecified documented in this encounter Care Teams Client Advocate Relationship Specialty Start Date End Date Tim Altman MD PCP - General 10/18/10 documented as of this encounter
--- OUTSIDE RECORDS SUMMARY | 2024-06-22 21:57 | XMS_ITS | Encounter Summary ---
Author Organization [facility] Address [facility] [place] [address] Care Team Providers Care Computer Technologist Name Role Phone Tim Altman MD Primary Care Provider [phone] Reason for Referral * Specialty Diagnoses / Procedures Referred By Dariela t Referred To Contact Karly Snyder APRN-MEDICAL TRANSCRIBER [address] [address] Vani Waldrop MD [address] [place] [phone] Referral ID Status Reason Start Date Expiration Date Visits Re quested Visits Authorized Reason for Visit * Reason Comments Follow-up left knee injection. hematoma on the left side of knee very hard. Swelling Knee left Pain from left knee shoot s up to groin area Encounter Details Date Type Department Care Team (Late st Contact Info) Description 01/30/2011 11:20 AM CDT Office Visit [facility] - Family Medicine [address] [place] [address] Karly Synder APRN-MEDICAL TRANSCRIBER [address] [address] Knee pain (Primary Dx) Social [...] leg documented in this encounter Care Teams Computer Technologist Relationship Specialty Start Date End Date Tim Altman MD PCP - General 10/18/10 documented as of this encounter
--- OUTSIDE RECORDS SUMMARY | 2024-06-22 21:57 | XMS_ITS | Encounter Summary ---
Author Organization [facility] Address [address] [place] [address] Phone Care Team Providers Care Mass Spectrometry Specialist Name Role Phone Tim Altman MD Primary Care Provider Reason for Visit * Reason Comments Surgery Medical clearance Encounter Details Date Type Department Care Team (Late st Contact Info) Description 06/02/2024 9:30 AM CUPOLA CHARGER INSULATION Office [facility] - Internal Medicine - [place] [address] [place] [address] Tim Altman MD [address] [facility] [place] [address] Pre-op evaluation (Primary Dx); Primary osteoarthritis of [...] drink = 0.6 oz pur e alcohol) [facility] Utilities Answer Date Recorded In the past 12 months has [employer] electric, gas, oil, or water company threatened [...] often do you attend chur ch or cheondoism services? Never 09/03/2023 Do you belong to [...] Total Score - Questions 1-9 0 08/14 [facility] ional Health - Occupational [...] Comments Blood Pressure 118/76 06/02/2024 9:20 AM CUPOLA CHARGER INSULATION Pulse 86 06/02/2024 9:20 AM CUPOLA CHARGER INSULATION Temperature 36.3 ??C (97.3 ??F) 06/02/2024 9:20 AM CS T Respiratory Rate - - Oxygen Saturation 99% 06/02/2024 9:20 AM CUPOLA CHARGER INSULATION Inhaled Oxygen Concentration - - Weight 88 kg (194 lb) 06/02/2024 9:20 AM CUPOLA CHARGER INSULATION Height 162.6 cm (5' 4 ) 06/02/2024 9:20 AM CUPOLA CHARGER INSULATION Body Mass Index 33.3 06/02/2024 9:20 AM CUPOLA CHARGER INSULATION documented in this encounter Progress Notes * [...] by mouth 3 times daily. 05/22/20 Yes iTm Altman MD albuterol 108 (90 Base) MCG/ACT [...] with the patient today: BMI and Smoking LA CHARGER INSULATION * Tim Altman MD - 06/02/2024 9:30 AM CST PROGRESS NOTE [facility] [address] [place] [address] PHONE: [phone] FAX: [phone] 06/02/2024 NAME: Lexi Mcneil, : 1955, Assessment ASSESSMENT & PLAN: Return for august appt. Diagnoses and all orders for this visit: Pre-op evaluation Comments: Patient is medically optimized for left knee arthroplasty. Primary osteoarthritis of left knee Essential hypertension, benign Comments: Controlled. Continue current medications. Other specified rheumatoid arthritis, multiple sites (HCC) Comments: Continue follow-up with underpresser hand. Preop lab results from 05/10/2024 reviewed. EKG-normal [...] By: Tim Altman MD 06/02/2024 10:05 AM CUPOLA CHARGER INSULATION LA CHARGER INSULATION documented in this encounter Plan of Treatment Upcoming Encounters Date Type Department Care Team (Late st Contact Info) Description 06/30/2024 10:00 AM CUPOLA CHARGER INSULATION [facility] [address] [place] [address] Raul Young MD [address] [place] [address] Brandi Coffey, PT [place] Discharge Disposition: Discharged to home or Selfcare 08/31/2024 9:30 AM CDT Office [facility] - Internal Medicine - [place] [address] [place] [address] Tim Altman MD [address] [place] [address] Scheduled Orders Name Type Priority Associated Diagnoses [...] documented as of this encounter Care Teams Mass Spectrometry Specialist Relationship Specialty Start Date End Date Tim Altman MD [address] [place] [address] PCP - General Internal Medicine 12/03/15 documented as of this encounter
--- OUTSIDE RECORDS SUMMARY | 2024-06-22 21:57 | XMS_ITS | Encounter Summary ---
Author Organization [employer] Care Team Providers Care Forensic Photographer Name Role Phone Tim Altman MD Primary Care Provider [phone] Sanaz Mendoza RN Unavailable Unavailable Encounter Details Date Type Department Care Team (Latest Contact Info) Description 03/09/2024 Travel Social History Tobacco Use Types Packs/Day Years Used Date Smoking Tobacco: Former Cigarettes Q uit: 07/23/1969 Passive Smoke Exposure: Past Smokeless Tobacco: Never Alcohol Use Standard Drinks/Week Comments Not Currently 0 (1 standard drink = 0.6 oz pur e alcohol) [facility] Utilities Answer Date Recorded In the past 12 months has [employer], gas, oil, or water [employer] threatened to shut off services in your [...] often do you attend chur ch or pentecostalism services? Never 09/03/2023 Do you [...] Total Score - Questions 1-9 0 08/14 [facility] of Occupat ional Health - Occupational Stress [...] st Contact Info) Description 06/30/2024 10:00 AM APPLICATION SUPPORT ANALYST Physical Therapy [facility] [address] [place] [address] Raul Young MD [address] [place] [address] Brandi Coffey, PT [place] Discharge Disposition: Discharged to home or Selfcare 08/31/2024 9:30 AM CDT Office Visit [facility] [address] [place] [address] Tim Altman MD [address] [place] [address] documented as of this encounter Visit Diagnoses Not on filedocumented in this encounter Additional Health Concerns Assessment Noted Time PHQ-9 Depression Total Score: 0 09/03/19 24 9:32 AM CDT documented as of this encounter Care Teams Forensic Photographer Relationship Specialty Start Date End Date Tim Altman MD [address] [place] [address] PCP - General Internal Medicine 12/03/15 Sanaz Mendoza, RN [place] Nurse Joint Yarner 03/09/24 03/09/24 documented as of this encounter
--- OUTSIDE RECORDS SUMMARY | 2024-06-22 21:57 | XMS_ITS | Encounter Summary ---
Author Organization [facility] Address [address] [place] [address] Phone Care Team Providers Care Balance Wheel Motion Inspector Name Role Phone Tim Altman MD Primary Care Provider [phone] Encounter Details Date Type Department Care Team (Late st Contact Info) Description 06/06/2024 Results Follow-Up [facility] - Internal Medicine - [place] [address] [place] [address] Tim Altman MD [address] [place] [address] Social History Tobacco Use Types Packs/Day Years Used Date Smoking Tobacco: Former Cigarettes Q uit: 07/23/1969 Passive Smoke Exposure: Past Smokeless Tobacco: Never Alcohol Use Standard Drinks/Week Comments Not Currently 0 (1 standard drink = 0.6 oz pur e alcohol) [facility] Utilities Answer Date Recorded In the past 12 months has [employer] electric, gas, oil, or water company threatened [...] 09/03/2023 How often do you attend [facility] or orthodoxy services? Never 09/03/2023 Do you belong to [...] Total Score - Questions 1-9 0 08/14 [facility] Occupat ional Health - Occupational [...] st Contact Info) Description 06/30/2024 10:00 AM TELECOM FIELD TECHNICIAN [facility] [address] [facility] [place] [address] Raul Young MD [address] [place] [address] Brandi Coffey, PT [place] Discharge Disposition: Discharged to home or Selfcare 08/31/2024 9:30 AM CDT Office Visit [facility] Medicine [place] [address] [place] [address] Tim Altman MD [address] [place] [address] documented as of this encounter Visit Diagnoses Not on filedocumented in this encounter Additional Health Concerns Assessment Noted Time PHQ-9 Depression Total Score: 0 09/03/19 24 9:32 AM CDT documented as of this encounter Care Teams Balance Wheel Motion Inspector Relationship Specialty Start Date End Date Tim Altman MD [address] [place] [address] PCP - General Internal Medicine 12/03/15 documented as of this encounter
--- OUTSIDE RECORDS SUMMARY | 2024-06-22 21:57 | XMS_ITS | Encounter Summary ---
Author Organization [facility] Address [address] [place] [address] Phone Care Team Providers Care Vinegar Maker Name Role Phone Tim Altman MD Primary Care Provider Sanaz Mendoza RN Unavailable Unavailable Reason for Visit * Reason Comments Medication Refill Encounter Details Date Type Department Care Team (Late st Contact Info) Description 09/25/2023 Refill [facility] - [place] [address] [facility] [place] [address] Sangita Best, [facility] [address] [place] [address] Medication Refill Social History Tobacco Use Types Packs/Day Years Used Date Smoking Tobacco: Former Cigarettes Q uit: 07/23/1969 Passive Smoke Exposure: Past Smokeless Tobacco: Never Alcohol Use Standard Drinks/Week Comments Not Currently 0 (1 standard drink = 0.6 oz pur e alcohol) [facility] Utilities Answer Date Recorded In the past 12 months has [employer], gas, oil, or water company threatened to [...] often do you attend chur ch or adventist services? Never 09/03/2023 Do you belong to any clubs o r organizations such as cheondoism groups, unions, fraternal or athletic groups, or [...] PM CDT Medication(s) refilled and signed per [facility] [...] [place] 01/07/23 Office Visit [facility] [place] Showing recent visits within past 365 days and meeting all other requirements Future Appointments No visits were found meeting these conditions. Showing future appointments within next 90 days and meeting all other requirements documented in this encounter Plan of Treatment Upcoming Encounters Date Type Department Care Team (Late st Contact Info) Description 06/30/2024 10:00 AM FOOD QUALITY TECHNICIAN [facility] [address] [place] [address] Raul Young MD [address] [place] [address] Brandi Coffey, PT [place] Discharge Disposition: Discharged to home or Selfcare 08/31/2024 9:30 AM CDT Office Visit [facility] - Internal Medicine - [place] [address] [place] [phone] Tim Altman MD [address] [place] [address] documented as of this encounter Visit Diagnoses Not on filedocumented in this encounter Additional Health Concerns Assessment Noted Time PHQ-9 Depression Total Score: 0 09/03/19 24 9:32 AM CDT documented as of this encounter Care Teams Vinegar Maker Relationship Specialty Start Date End Date Tim Altman MD [address] [place] [address] PCP - General Internal Medicine 12/03/15 Sanaz Mendoza, RN [place] Nurse Industrial Gas Servicer Helper 03/09/24 03/09/24 documented as of this encounter
--- OUTSIDE RECORDS SUMMARY | 2024-06-22 21:57 | XMS_ITS | Encounter Summary ---
Author Organization [facility] Address [address] [place] [address] Phone Care Team Providers Care Diesel Engine Mechanic Name Role Phone Tim Altman MD Primary Care Provider [phone] Reason for Visit * Reason Comments Medication Refill Encounter Details Date Type Department Care Team (Late st Contact Info) Description 07/10/2023 Refill [facility] - [place] [address] [place] [address] Sangita Best, [facility] [address] [place] [address] Medication Refill Social History Tobacco [...] AM CST Medication(s) refilled and signed per [facility] [...] Dept 01/07/23 Office Visit Tim Altman MD [facility] [place] Showing recent visits within past 365 days and meeting all other requirements Future Appointments No visits were found meeting these conditions. Showing future appointments within next 90 days and meeting all other requirements ER documented in this encounter Plan of Treatment Upcoming Encounters Date Type Department Care Team (Late st Contact Info) Description 06/30/2024 10:00 AM COATER Physical Therapy [facility] at [facility] [address] [place] [address] Raul Young MD [address] [place] [address] Brandi Coffey, PT [place] Discharge Disposition: Discharged to home or Selfcare 08/31/2024 9:30 AM CDT Office Visit [facility] - Internal Medicine - [place] [address] [place] [address] Tim Altman MD [address] [place] [address] documented as of this encounter Visit Diagnoses Not on filedocumented in this encounter Additional Health Concerns Assessment Noted Time PHQ-9 Depression Total Score: 0 06/18/19 21 3:00 PM COATER documented as of this encounter Care Teams Diesel Engine Mechanic Relationship Specialty Start Date End Date Tim Altman MD [address] [place] [address] PCP - General Internal Medicine 12/03/15 documented as of this encounter
--- OUTSIDE RECORDS SUMMARY | 2024-06-22 21:57 | XMS_ITS | Encounter Summary ---
Author Organization [facility] Address [address] [place] [address] Phone Care Team Providers Care Vein Pumper Name Role Phone Tim Altman MD Primary Care Provider Reason for Visit * Reason Comments Medication Refill Encounter Details Date Type Department Care Team (Late st Contact Info) Description 12/29/2023 Refill [facility] - [place] [address] [place] [address] Sangita Best, [facility] [address] [place] [address] Medication Refill Social History Tobacco Use Types Packs/Day Years Used Date Smoking Tobacco: Former Cigarettes Q uit: 07/23/1969 Passive Smoke Exposure: Past Smokeless Tobacco: Never Alcohol Use Standard Drinks/Week Comments Not Currently 0 (1 standard drink = 0.6 oz pur e alcohol) [facility] Utilities Answer Date Recorded In the past 12 months has [employer], gas, oil, or water company threatened to [...] often do you attend chur ch or pentecostal services? Never 09/03/2023 Do you belong to any clubs o r organizations such as congregational groups, unions, fraternal or athletic groups, or [...] 1-9 0 08/14 [facility] - Occupational Stress Questionnaire Answer Date [...] place to sleep or slept in a longterm (including now)? No 09/03/2023 Sexually Active Control [...] Office Visit Tim Altman MD [facility] [place] 01/07/23 Office Visit Tim Altman MD [facility] [place] Showing recent visits within past 365 days and meeting all other requirements Future Appointments Date Type Provider Dept 03/09/24 Appointment Tim Altman MD [facility] [place] Showing future appointments within next 90 days and meeting all other requirements documented in this encounter Plan of Treatment Upcoming Encounters Date Type Department Care Team (Late st Contact Info) Description 06/30/2024 10:00 AM INTEGRATION PROJECT MANAGER [facility] [address] [place] [address] Raul Young MD [address] [place] [address] Brandi Coffey, PT [place] Discharge Disposition: Discharged to home or Selfcare 08/31/2024 9:30 AM CDT [facility] Visit [facility] - [place] [address] [place] [phone] Tim Altman MD [address] [place] [address] documented as of this encounter Visit Diagnoses Not on filedocumented in this encounter Additional Health Concerns Assessment Noted Time PHQ-9 Depression Total Score: 0 09/03/19 24 9:32 AM CDT documented as of this encounter Care Teams Vein Pumper Relationship Specialty Start Date End Date Tim Altman MD [address] [place] [address] PCP - General Internal Medicine 12/03/15 documented as of this encounter
--- OUTSIDE RECORDS SUMMARY | 2024-06-22 21:57 | XMS_ITS | Encounter Summary ---
Author Organization [facility] Address [address] [place] [address] Phone Care Team Providers Care Explosive Ordnance Handler Name Role Phone Tim Altman MD Primary Care Provider Reason for Visit * Reason Comments Esophageal Reflux 6 mo f/u Encounter Details Date Type Department Care Team (Late st Contact Info) Description 01/07/2023 8:45 AM CDT Office Visit [facility] - [place] [address] [place] [address] Tim lAtman MD [address] [place] [address] Allergic rhinitis due to other [...] - 01/07/2023 8:45 AM CDT PROGRESS NOTE [facility] - [facility] MEDICINE [address] [facility] [place] [address] PHONE: [phone] FAX: [phone] 01/07/2023 NAME: Lexi Mcneil, : 1955, Assessment [...] pain remained stable. Also being followed by hospice admitting clerk for rheumatoid arthritis. ROS Review of systems [...] st Contact Info) Description 06/30/2024 10:00 AM SENIOR TEST ANALYST Physical Therapy [facility] at [facility] [address] [facility] [place] [address] Raul Young MD [address] [place] [address] Brandi Coffey, PT [place] Discharge Disposition: Discharged to home or Selfcare 08/31/2024 9:30 AM CDT Office Visit [facility] - Internal Medicine - [place] [address] [place] [address] Tim Altman MD [address] [place] [address] documented as of this encounter Visit Diagnoses [...] Total Score: 0 06/18/19 21 3:00 PM SENIOR TEST ANALYST documented as of this encounter Care Teams Explosive Ordnance Handler Relationship Specialty Start Date End Date Tim Altman MD [address] [place] [address] PCP - General Internal Medicine 12/03/15 documented as of this encounter
--- OUTSIDE RECORDS SUMMARY | 2024-06-22 21:57 | XMS_ITS | Encounter Summary ---
Author Organization [facility] Address [address] [place] [address] Phone Care Team Providers Care Radio Talk Show Host Name Role Phone Tim Altman MD Primary Care Provider Sanaz Mendoza RN Unavailable Unavailable Reason for Visit * Reason Onset Date Comments Patient Outreach 03/09/2024 High Risk MSSP Encounter Details Date Type Department Care Team (Late st Contact Info) Description 03/09/2024 Patient Outreach [facility] Screen Door Maker Management [address] [place] [address] Sanaz Mendoza, RN [place] Patient Outreach (High Risk MSSP ) Social History Tobacco Use Types Packs/Day Years Used Date Smoking Tobacco: Former Cigarettes Q uit: 07/23/1969 Passive Smoke Exposure: Past Smokeless Tobacco: Never Alcohol Use Standard Drinks/Week Comments Not Currently 0 (1 standard drink = 0.6 oz pur e alcohol) [facility] Utilities Answer Date Recorded In the past 12 months has [employer], gas, oil, or water [employer] threatened to shut off services in your [...] week 09/03/2023 How often do you attend [facility] or orthodoxy services? Never 09/03/2023 Do you belong to any clubs o r organizations such as mu-ism groups, unions, fraternal or athletic groups, or [...] st Contact Info) Description 06/30/2024 10:00 AM COKE OVEN MASON Physical Therapy [facility] Rehab at [facility] [address] [place] [phone] Raul Young MD [address] [place] [address] Brandi Coffey, PT [place] Discharge Disposition: Discharged to home or Selfcare 08/31/2024 9:30 AM CDT Office Visit [facility] - Internal Medicine - [place] [address] [place] [phone] Tim Altman MD [address] [place] [address] documented as of this encounter Visit Diagnoses Not on filedocumented in this encounter Additional Health Concerns Assessment Noted Time PHQ-9 Depression Total Score: 0 09/03/19 24 9:32 AM CDT documented as of this encounter Care Teams Radio Talk Show Host Relationship Specialty Start Date End Date Tim Altman MD [address] [place] [address] PCP - General Internal Medicine 12/03/15 Sanaz Mendoza RN [place] Nurse Usability Architect 03/09/24 03/09/24 documented as of this encounter
--- OUTSIDE RECORDS SUMMARY | 2024-06-22 21:57 | XMS_ITS | Encounter Summary ---
Author Organization [facility] Address [address] [place], [place] [address] [address] Care Team Providers Care Senior Web Architect Name Role Phone Tim Altman MD Primary Care Provider [phone] Reason for Visit * Reason Onset Date Comments MEDICATION REFILL 02/12/2011 Encounter Details Date Type Department Care Team (Late st Contact Info) Description 02/12/2011 Refill [facility] - Family Medicine [address] [place] [address] Casper Smith MD MEDICATION REFILL Social History [...] filedocumented in this encounter Care Teams Senior Web Architect Relationship Specialty Start Date End Date Tim Altman MD PCP - General 10/18/10 documented as of this encounter
--- OUTSIDE RECORDS SUMMARY | 2024-06-22 21:57 | XMS_ITS | Encounter Summary ---
Author Organization [facility] Address [address] [place] [address] Phone Care Team Providers Care Paving Bed Maker Name Role Phone Tim Altman MD Primary Care Provider Encounter Details Date Type Department Care Team (Late st Contact Info) Description 04/21/2024 Telephone [facility] - Internal Medicine - [place] [address] [place] [address] Tim Altman MD [address] [place] [address] Social History Tobacco Use Types Packs/Day Years Used Date Smoking Tobacco: Former Cigarettes Q uit: 07/23/1969 Passive Smoke Exposure: Past Smokeless Tobacco: Never Alcohol Use Standard Drinks/Week Comments Not Currently 0 (1 standard drink = 0.6 oz pur e alcohol) [facility] Utilities Answer Date Recorded In the past 12 months has [employer], gas, oil, or water [employer] threatened to shut off services in your [...] Total Score - Questions 1-9 0 08/14 [facility]at [facility] - Occupational Stress Questionnaire Answer Date [...] Miscellaneous Notes * Telephone Encounter - Doris aBbb CMA - 04/21/2024 2:09 PM VIBRATOR EQUIPMENT TESTER Sunita @ [facility] faxed a medical clearance form over to ananda Altman order labs that needs to be done on 05/10/24. \was given to Dr. Altman. ATOR EQUIPMENT TESTER ATOR EQUIPMENT TESTER documented in this encounter Plan of Treatment Upcoming Encounters Date Type Department Care Team (Late st Contact Info) Description 06/30/2024 10:00 AM VIBRATOR EQUIPMENT TESTER [facility] at [facility] [address] [place] [address] Raul Young MD [address] [place] [address] Brandi Coffey, PT [place] Discharge Disposition: Discharged to home or Selfcare 08/31/2024 9:30 AM CDT Office Visit [facility] Medical Group - Internal Medicine Sunday [address] [place] [address] Tim Altman MD [address] [place] [address] documented as of this encounter Visit Diagnoses Not on filedocumented in this encounter Additional Health Concerns Assessment Noted Time PHQ-9 Depression Total Score: 0 09/03/19 24 9:32 AM CDT documented as of this encounter Care Teams Paving Bed Maker Relationship Specialty Start Date End Date Tim Altman MD [address] [place] [address] PCP - General Internal Medicine 12/03/15 documented as of this encounter
--- OUTSIDE RECORDS SUMMARY | 2024-06-22 21:57 | XMS_ITS | Encounter Summary ---
Author Organization [facility] Address [address] [place] [address] Phone Care Team Providers Care Voice Pathologist Name Role Phone Tim Altman MD Primary Care Provider Encounter Details Date Type Department Care Team (Late st Contact Info) Description 04/21/2024 Telephone [facility] - Internal Medicine - [place] [address] [place] [address] Tim Altman MD [address] [place] [address] Social History Tobacco Use Types Packs/Day Years Used Date Smoking Tobacco: Former Cigarettes Q uit: 07/23/1969 Passive Smoke Exposure: Past Smokeless Tobacco: Never Alcohol Use Standard Drinks/Week Comments Not Currently 0 (1 standard drink = 0.6 oz pur e alcohol) [facility] Utilities Answer Date Recorded In the past 12 months has [employer], gas, oil, or water [employer] threatened to shut off services in your [...] often do you attend chur ch or sabianism services? Never 09/03/2023 Do you belong to [...] Total Score - Questions 1-9 0 08/14 [facility] of Occupat ional [facility] - Occupational Stress Questionnaire Answer [...] place to sleep or slept in a correction (including now)? No 09/03/2023 Sexually Active Control Partners Comments Not Currently Comments No Sex and Gender Information Value Date Recorded Sex Assigned at Not on file Legal Sex Female 7:42 PM CDT Gender Identity Not on file Sexual Orientation Not on file documented as of this encounter Miscellaneous Notes * Telephone Encounter - Tim Altman MD - 04/21/2024 4:07 PM TROLLEY WORKER Pre-op labs ordered per ortho surgeon req LEY WORKER documented in this encounter Plan of Treatment Upcoming Encounters Date Type Department Care Team (Late st Contact Info) Description 06/30/2024 10:00 AM TROLLEY WORKER Physical Therapy [facility] Rehab at [facility] [address] [place] [phone] Raul Young MD [address] [facility] [address] [place] [address] Brandi Coffey, PT [place] Discharge Disposition: Discharged to home or Selfcare 08/31/2024 9:30 AM CDT [facility] Internal [facility] - [place] [address] [place] [place] [address] Tim Altman MD [address] [place] [address] documented as of this encounter Results * HEMOGLOBIN A1C W/ ESTIMATED GLUCOSE (05/10/2024 8:19 AM TROLLEY WORKER) HGB-A1C 5.6 4.0 - 6.0 % 05/10/2024 3:37 PM TROLLEY WORKER [facility] Est Average Glucose 114.0 mg/dL 05/10/2024 3:37 PM [facility] Blood Venipuncture / Unknown 05/10/2024 8:19 AM TROLLEY WORKER 05/10/2024 8:19 AM TROLLEY WORKER Narrative [facility] - 05/10/2024 3:37 PM TROLLEY WORKER HEMOGLOBIN A1C: DIABETIC PATIENTS: WELL-CONTROLLED: ?? 6.2 - 7.0 INTERMEDIATE WELL-CONTROLLED: ??7.0 - 9.0 POORLY-CONTROLLED: ??>9.0 us Tim Altman MD CHEMISTRY ORDERABLES Final Result [facility] [place] [address] * (ABNORMAL) CMP (COMPREHENSIVE METABOLIC PANEL) (05/10/2024 8:19 AM TROLLEY WORKER) [facility] SODIUM 139 136 - 145 mmol/L 05/10/2024 3:44 PM [facility] POTASSIUM 4.5 3.5 - 5.1 mmol/L 05/10/2024 3:44 PM [facility] CHLORIDE 104 98 - 107 mmol/L 05/10/2024 3:44 PM [facility] CO2, VENOUS 22 22 - 30 mmol/L 05/10/2024 3:44 PM [facility] ANION GAP 17.5 <18.0 mmol/L 05/10/2024 3:44 PM [facility] GLUCOSE 95 70 - 99 mg/dL 05/10/2024 3:44 PM [facility] BUN 17 10 - 20 mg/dL 05/10/2024 3:44 PM [facility] CREATININE, BLOOD 0.83 0.60 - 1.00 mg/dL 05/10/2024 3:44 PM [facility] BUN/CREATININE RATIO 20 12 - 20 ratio 05/10/2024 3:44 PM [facility] TOTAL PROTEIN 7.4 6.3 - 8.2 g/dL 05/10/2024 3:44 PM [facility] ALBUMIN 4.3 3.5 - 5.0 g/dL 05/10/2024 3:44 PM [facility] A/G RATIO 1.4 1.0 - 2.2 05/10/2024 3:44 PM [facility] CALCIUM 10.0 8.7 - 10.5 mg/dL 05/10/2024 3:44 PM [facility] T BILI 0.6 0.2 - 1.2 mg/dL 05/10/2024 3:44 PM [facility] SGOT (AST) 35(H) 5 - 34 U/L 05/10/2024 3:44 PM [facility] SGPT (ALT) 6 0 - 55 U/L 05/10/2024 3:44 PM [facility] ALKALINE PHOSPHATASE 53 40 - 150 U/L 05/10/2024 3:44 PM [facility] IS THE PATIENT REQUIRED TO BE FASTING? No 05/10/2024 3:44 PM [facility] HAS THE PATIENT BEEN FASTING? Yes 05/10/2024 3:44 PM [facility] GFR, ESTIMATED >60 >=60 05/10/2024 3:44 PM [facility] Comment: Creatinine Clearance is the preferred criteria for selecting drug dose adjustments in renally impaired patients. ??The GFR is provided as additional pertinent clinical information. GFR is reported in mL/min/1.73 sq m. Calculation based on the Chronic Kidney Disease Epidemiology Collaboration (CKD- EPI) equation refit without adjustment for race. GFR, EST. >60 >=60 024 3:44 PM [facility] GFR, EST. NONAFRICAN >60 >=60 05/10/2024 3:44 PM [facility] Blood Venipuncture / Unknown 05/10/2024 8:19 AM TROLLEY WORKER 05/10/2024 8:19 AM TROLLEY WORKER us Tim Altman MD CHEMISTRY ORDERABLES Final Result [facility] [place] [address] documented in this encounter Visit Diagnoses Diagnosis Pre-op evaluation- Primary Preoperative examination, unspecified Hyperglycemia Other abnormal glucose Arthralgia, unspecified joint documented in this encounter Additional Health Concerns Assessment Noted Time PHQ-9 Depression Total Score: 0 09/03/19 24 9:32 AM CDT documented as of this encounter Care Teams Voice Pathologist Relationship Specialty Start Date End Date Tim Altman MD [address] [place] [address] PCP - General Internal Medicine 12/03/15 documented as of this encounter
--- OUTSIDE RECORDS SUMMARY | 2024-06-22 21:57 | XMS_ITS | Encounter Summary ---
Author Organization [facility] Care Team Providers Care Benzol Still Operator Name Role Phone Tim Altman MD [...] st Contact Info) Description 06/30/2024 10:00 AM TRAVELING REPAIR ACCOUNTANT Physical Therapy [facility] Rehab at [facility] [address] [place] [address] Raul Young MD [address] [place] [address] Brandi Coffey, PT [place] Discharge Disposition: Discharged to home or Selfcare 08/31/2024 9:30 AM CDT [facility] Visit [facility] - Internal Medicine [facility] [address] [place] [phone] Tim Altman MD [address] [place] [address] documented as of this encounter Visit Diagnoses Not on filedocumented in this encounter Additional Health Concerns Assessment Noted Time PHQ-9 Depression Total Score: 0 06/18/19 21 3:00 PM TRAVELING REPAIR ACCOUNTANT documented as of this encounter Care Teams Benzol Still Operator Relationship Specialty Start Date End Date Tim Altman MD [address] [place] [address] PCP - General Internal Medicine 12/03/15 documented as of this encounter
--- OUTSIDE RECORDS SUMMARY | 2024-06-22 21:57 | XMS_ITS | Encounter Summary ---
Author Organization [facility] Address [address] [place] [address] Phone Care Team Providers Care Guitar Instructor Name Role Phone Tim Altman MD Primary Care Provider Reason for Visit * Reason Onset Date Comments Medication Management 04/07/2023 Encounter Details Date Type Department Care Team (Late st Contact Info) Description 04/07/2023 Telephone [facility] - Internal Medicine - [place] [address] [place] [address] Tim Altman MD [address] [facility] [facility] [place] [address] Medication Management Social History Tobacco [...] - 04/21/2023 10:40 AM CST Pt aware FURRING INSTALLER * Telephone Encounter - Tim Altman MD [...] st Contact Info) Description 06/30/2024 10:00 AM DOOR FURRING INSTALLER [facility] [address] [place] [address] Raul Young MD [address] [place] [address] Brandi Coffey, PT [place] Discharge Disposition: Discharged to home or Selfcare 08/31/2024 9:30 AM CDT Office Visit [facility] Medical Group - Internal Medicine - [place] [address] [place] [phone] Tim Altman MD [address] [place] [address] documented as of this encounter Visit Diagnoses Not on filedocumented in this encounter Additional Health Concerns Assessment Noted Time PHQ-9 Depression Total Score: 0 06/18/19 21 3:00 PM DOOR FURRING INSTALLER documented as of this encounter Care Teams Guitar Instructor Relationship Specialty Start Date End Date Tim Altman MD [address] [place] [address] PCP - General Internal Medicine 12/03/15 documented as of this encounter
--- OUTSIDE RECORDS SUMMARY | 2024-06-22 21:57 | XMS_ITS | Encounter Summary ---
Author Organization [facility] Address [address] [place] [address] Phone Care Team Providers Care Director Part Name Role Phone Tim Altman MD Primary Care Provider Encounter Details Date Type Department Care Team (Late st Contact Info) Description 01/07/2023 Telephone [facility] Internal [facility] - [place] [address] [place] [address] Tim Altman MD [address] [facility] [place] [address] Social History Tobacco Use Types [...] st Contact Info) Description 06/30/2024 10:00 AM PROFESSOR OF PUBLIC ADMINISTRATION [facility] [address] [place] [address] Raul Young MD [address] [place] [address] Brandi Coffey, PT [place] Discharge Disposition: Discharged to home or Selfcare 08/31/2024 9:30 AM CDT Office Visit [facility] Medical [facility] - Internal Medicine - [place] [address] [place] [address] Tim Altman MD [address] [place] [address] documented as of this encounter Visit Diagnoses Not on filedocumented in this encounter Additional Health Concerns Assessment Noted Time PHQ-9 Depression Total Score: 0 06/18/19 21 3:00 PM PROFESSOR OF PUBLIC ADMINISTRATION documented as of this encounter Care Teams Director Part Relationship Specialty Start Date End Date Tim Altman MD [address] [place] [address] PCP - General Internal Medicine 12/03/15 documented as of this encounter
--- OUTSIDE RECORDS SUMMARY | 2024-06-22 21:57 | XMS_ITS | Encounter Summary ---
Author Organization [facility] Address [address] [place] [address] [place] [address] Care Team Providers Care Flooring Salesperson Name Role Phone Tim Altman MD Primary Care Provider [phone] Reason for Visit * Reason Comments Pain Arm Pain Hand both SHAKING Rash arms and inside of m outh Swelling Facial right side Headache Encounter Details Date Type Department Care Team (Latest Contact Info) Description 12/24/2010 2:00 PM CDT Office Visit [facility] - Rheumatology [address] [place] [address] Casper Smith MD Fibromyalgia (Primary Dx); DJD [...] crutches, prosthesis, splint/brace, walker and wheelchair HEENT: MANZANITA , cerumen , anisocoria, retinal, hemorrhage, thrush, [...] abn 1st [facility], Flexor tend, Finger Deformity: [place] neck/ Boutonniere/ Mallet finger, Ulnar deviation, Dupuytren's, [...] unspecified documented in this encounter Care Teams Flooring Salesperson Relationship Specialty Start Date End Date Tim Altman MD PCP - General 10/18/10 documented as of this encounter
--- OUTSIDE RECORDS SUMMARY | 2024-06-22 21:57 | XMS_ITS | Encounter Summary ---
Author Organization [facility] Address [address] [place] [address] Phone Care Team Providers Care Vegetable Harvest Machine Operator Name Role Phone Tim Altman MD Primary Care Provider Reason for Visit * Reason Comments Patient Outreach High Risk MSSP Encounter Details Date Type Department Care Team (Late st Contact Info) Description 11/14/2022 Care Management [facility] Cream Separator Operator Management [address] [place] [address] Antoinette Loyd LSW [place] Patient Outreach (High Risk MSSP) Social History [...] Left VM asking for return call to [facility]. ACP: No Discussion record completed: No Diagnoses: HTN, osteoarthritis, fibromyalgia * Sanaz Mendoza, RN - 11/14/2022 3:12 PM CDT No answer 2nd attempt. Message left for call back. Invitation letter sent. documented in this encounter Plan of Treatment Upcoming Encounters Date Type Department Care Team (Late st Contact Info) Description 06/30/2024 10:00 AM MEDICAL CARE MANAGER [facility] [address] [place] [address] Raul Young MD [address] [place] [address] Brandi Coffey, PT [place] Discharge Disposition: Discharged to home or Selfcare 08/31/2024 9:30 AM CDT Office Visit [facility] Medical Group - Internal Medicine [facility] [address] [place] [phone] Tim Altman MD [address] [place] [address] documented as of this encounter Visit Diagnoses Not on filedocumented in this encounter Additional Health Concerns Assessment Noted Time PHQ-9 Depression Total Score: 0 06/18/19 21 3:00 PM MEDICAL CARE MANAGER documented as of this encounter Care Teams Vegetable Harvest Machine Operator Relationship Specialty Start Date End Date Tim Altman MD [address] [place] [address] PCP - General Internal Medicine 12/03/15 documented as of this encounter
--- OUTSIDE RECORDS SUMMARY | 2024-06-22 21:57 | XMS_ITS | Encounter Summary ---
Author Organization [facility] Address [address] [place] [address] [place] [address] Care Team Providers Care Appointment Coordinator Name Role Phone Tim Altman MD Primary Care Provider [phone] Reason for Visit * Reason Onset Date Comments Erroneous encounter-disregard 02/12/2011 Encounter Details Date Type Department Care Team (Late st Contact Info) Description 02/12/2011 Refill [facility] - Family Medicine [address] [place] [address] Sebas Forrester MD [address] [place] [address] Erroneous encounter-disregard Social History Tobacco Use Types [...] on filedocumented in this encounter Care Teams Appointment Coordinator Relationship Specialty Start Date End Date Tim Altman MD PCP - General 10/18/10 documented as of this encounter
--- OUTSIDE RECORDS SUMMARY | 2024-06-22 21:57 | XMS_ITS | Encounter Summary ---
Author Organization [facility] Address [address] [place] [address] Phone Care Team Providers Care Narrow Fabrics Weaver Name Role Phone Tim Altman MD Primary [...] Internal Medicine - [place] [address] [place] [address] Tim Altman MD [address] [place] [address] Essential hypertension, benign (Primary Dx); [...] drink = 0.6 oz pur e alcohol) [facility] Utilities Answer Date Recorded In the past 12 months has [employer], [employer], or [employer] threatened to shut off services in your [...] any clubs o r organizations such as sikhism groups, unions, fraternal or athletic groups, or [...] Questions 1-9 0 08/14 [facility] - Occupational Stress Questionnaire Answer Date [...] - 03/09/2024 9:30 AM CDT PROGRESS NOTE [facility] - INTERNAL MEDICINE [address] [place] [address] PHONE: [phone] FAX: [phone] 03/09/2024 NAME: Lexi Mcneil, : 1955, Assessment [...] multiple sites (HCC) Comments: Continue follow-up with staffing director. Lab results from 12/31/2023 reviewed and discussed with patient. Follow-up in 3 months, sooner if needed. Chief Complaint Patient presents with Hypertension Fell in December no broken bones compound sprain in ankle and was bruised all ove Hypertension Patient is here for follow-up for hypertension other medical problems. Overall feeling well. Recently had a fall and sustained left ankle sprain. Being followed by biomedical engineering technologist. Tolerating medications well. ROS Review of systems [...] st Contact Info) Description 06/30/2024 10:00 AM BATTERY TESTER FIELD [facility] [address] [place] [address] Raul Young MD [address] [place] [address] Brandi Coffey, PT [place] Discharge Disposition: Discharged to home or Selfcare 08/31/2024 9:30 AM CDT [facility] Internal [facility] [place] [address] Tim Altman MD [address] [address] documented as of this encounter Visit Diagnoses [...] documented as of this encounter Care Teams Narrow Fabrics Weaver Relationship Specialty Start Date End Date Tim Altman MD [address] [place] [address] PCP - General Internal Medicine 12/03/15 Sanaz Mendoza RN [place] Nurse Chick Grader 03/09/24 03/09/24 documented as of this encounter
--- OUTSIDE RECORDS SUMMARY | 2024-06-22 21:57 | XMS_ITS | Encounter Summary ---
Author Organization [facility] Address [address] [place] [address] Phone Care Team Providers Care Solderer Electronic Name Role Phone Tim Altman MD Primary Care Provider Sanaz Mendoza RN Unavailable Unavailable Reason for Visit * Reason Comments Medication Refill Encounter Details Date Type Department Care Team (Late st Contact Info) Description 10/02/2022 [facility]ill [facility] [place] [address] [facility] [address] Tim Altman MD [address] [facility] [place] [address] Medication Refill Social History Tobacco [...] st Contact Info) Description 06/30/2024 10:00 AM CARPET TILE LAYER [facility] [address] [place] [address] Raul Young MD [address] [place] [address] Brandi Coffey, PT [place] Discharge Disposition: Discharged to home or Selfcare 08/31/2024 9:30 AM CDT Office Visit [facility] - Internal Medicine - [place] [address] [place] [phone] Tim Altman MD [address] [facility] [place] [address] documented as of this encounter Visit Diagnoses Not on filedocumented in this encounter Additional Health Concerns Assessment Noted Time PHQ-9 Depression Total Score: 0 06/18/19 21 3:00 PM CARPET TILE LAYER documented as of this encounter Care Teams Solderer Electronic Relationship Specialty Start Date End Date Tim Altman MD [address] [place] [address] PCP - General Internal Medicine 12/03/15 Sanaz Mendoza, RN [place] Nurse Auto Painter Helper 03/09/24 03/09/24 documented as of this encounter
--- OUTSIDE RECORDS SUMMARY | 2024-06-22 21:57 | XMS_ITS | Encounter Summary ---
Author Organization [facility] Address [address] [place], [place] [address] [address] Care Team Providers Care Slag Wheeler Name Role Phone Tim Altman MD Primary Care Provider [phone] Reason for Visit * Reason Onset Date Comments MEDICATION REFILL 03/17/2011 Encounter Details Date Type Department Care Team (Late st Contact Info) Description 03/17/2011 Refill [facility] Medical [facility] - Rheumatology [address] [place] [address] Casper Smith MD MEDICATION REFILL Social History [...] 5 Mg called into her pharmacy. Pharmacy [phone]. Would like more than 14. documented in this encounter Plan of Treatment Not on file documented as of this encounter Visit Diagnoses Not on filedocumented in this encounter Care Teams Slag Wheeler Relationship Specialty Start Date End Date Tim Altman MD PCP - General 10/18/10 documented as of this encounter
--- OUTSIDE RECORDS SUMMARY | 2024-06-22 21:57 | XMS_ITS | Encounter Summary ---
Author Organization [facility] Address [address] [place] [address] Phone Care Team Providers Care Heating Systems Installer Name Role Phone Tim Altman MD Primary Care Provider [phone]- [phone] Reason for Visit * Reason Comments Medication Refill Encounter Details Date Type Department Care Team (Late st Contact Info) Description 04/01/2024 Refill [facility] - Internal Medicine - [place] [address] [place] [address] Sangita Best, [facility] [address] [place] [address] Medication Refill Social History Tobacco Use Types Packs/Day Years Used Date Smoking Tobacco: Former Cigarettes Q uit: 07/23/1969 Passive Smoke Exposure: Past Smokeless Tobacco: Never Alcohol Use Standard Drinks/Week Comments Not Currently 0 (1 standard drink = 0.6 oz pur e alcohol) [facility] Utilities Answer Date Recorded In the past 12 months has [employer], gas, oil, or water company threatened to [...] often do you attend chur ch or tenriism services? Never 09/03/2023 Do you belong to any clubs o r organizations such as orthodox groups, unions, fraternal or athletic groups, [...] Score - Questions 1-9 0 08/14 [facility] - Occupational Stress Questionnaire Answer Date Recorded [...] AM CDT Medication(s) refilled and signed [facility] Chronic Medication Refill Standing Order [...] 09/03/23 Office Visit Tim Altman MD [facility] [place] Showing recent visits within past 365 days and meeting all other requirements Future Appointments No visits were found meeting these conditions. Showing future appointments within next 90 days and meeting all other requirements documented in this encounter Plan of Treatment Upcoming Encounters Date Type Department Care Team (Late st Contact Info) Description 06/30/2024 10:00 AM SUPERVISOR FEED HOUSE [facility] [address] [place] [address] Raul Young MD [address] [place] [address] Brandi Coffey, PT [place] Discharge Disposition: Discharged to home or Selfcare 08/31/2024 9:30 AM CDT Office Visit [facility] Group - Internal Medicine - [place] [address] [place] [phone] Tim Altman MD [address] [place] [address] documented as of this encounter Visit Diagnoses Not on filedocumented in this encounter Additional Health Concerns Assessment Noted Time PHQ-9 Depression Total Score: 0 09/03/19 24 9:32 AM CDT documented as of this encounter Care Teams Heating Systems Installer Relationship Specialty Start Date End Date Tim Altman MD [address] [place] [address] PCP - General Internal Medicine 12/03/15 documented as of this encounter
--- OUTSIDE RECORDS SUMMARY | 2024-06-22 21:57 | XMS_ITS | Encounter Summary ---
Author Organization [facility] Address [address] [place] [address] Phone Care Team Providers Care Clipman Name Role Phone Tim Altman MD Primary Care Provider Reason for Visit * Reason Comments Patient Outreach Encounter Details Date Type Department Care Team ([facility] st Contact Info) Description 05/18/2023 Care Management [facility] School Bus Operator Management [address] [place] [address] Sanaz Mendoza, RN [place] Patient [...] this time. Engagement status updated: No-per provider R GUIDE documented in this encounter Plan of Treatment Upcoming Encounters Date Type Department Care Team (Late st Contact Info) Description 06/30/2024 10:00 AM RIVER GUIDE [facility] [address] [place] [address] Raul Young MD [address] [place] [address] Brandi Coffey, PT [place] Discharge Disposition: Discharged to home or Selfcare 08/31/2024 9:30 AM CDT Office Visit [facility] - Internal Medicine [place] [address] [place] [phone] Tim Altman MD [address] [place] [address] documented as of this encounter Visit Diagnoses Not on filedocumented in this encounter Additional Health Concerns Assessment Noted Time PHQ-9 Depression Total Score: 0 06/18/19 21 3:00 PM RIVER GUIDE documented as of this encounter Care Teams Clipman Relationship Specialty Start Date End Date Tim Altman MD [address] [place] [address] PCP - General Internal Medicine 12/03/15 documented as of this encounter
--- OUTSIDE RECORDS SUMMARY | 2024-06-22 21:57 | XMS_ITS | Encounter Summary ---
Author Organization [facility] Address [address] [facility] [place] [address] Phone Care Team Providers Care Director Cardiovascular Name Role Phone Tim Altman MD Primary Care Provider [phone] Reason for Referral * PT/OT/ST (Routine) - Authorized Specialty Diagnoses / Procedures Referred By Contac t Referred To Contact Physical Therapy Diagnoses Aftercare following joint replacement surgery, unspecified joint Presence of left artificial knee joint Raul Young MD [address] [facility] [address] [place] [address] Phone: tel: fax: [facility] [address] [facility], [address] [address] Phone: tel: fax: Referral ID Status Reason Start Date Expiration Date V isits Requested Visits Authorized [id number] Authorized 06/14/2024 50 50 Scheduling Instructions T SECTION BLOWER Encounter Details Date Type Department Care Team (Latest Contact Info) Description 06/14/2024 Transcribe Orders [facility] [address] [place] [address] Raul Young MD [address] [place] [address] Aftercare following joint replacement surgery, unspecified joint (Primary Dx); Presence of left artificial knee joint Social History Tobacco Use Types Packs/Day Years Used Date Smoking Tobacco: Former Cigarettes Q uit: 07/23/1969 Passive Smoke Exposure: Past Smokeless Tobacco: Never Alcohol Use Standard Drinks/Week Comments Not Currently 0 (1 standard drink = 0.6 oz pur e alcohol) [facility] Utilities Answer Date Recorded In the past 12 months has e [employer], gas, oil, or water [employer] threatened to shut off services in your [...] 09/03/2023 How often do you attend chur or uatsdin services? Never 09/03/2023 Do you belong to [...] Total Score - Questions 1-9 0 08/14 [facility] [place] [place] of Occupat ional Health - Occupational Stress [...] st Contact Info) Description 06/30/2024 10:00 AM EIGHT SECTION BLOWER Physical Therapy [facility] [address] [place] [address] Raul Young MD [address] [place] [address] Brandi Coffey, PT [place] Discharge Disposition: Discharged to home or Selfcare 08/31/2024 9:30 AM CDT [facility] [place] [address] [place] [address] Tim Altman MD [address] [place] [address] Scheduled Referrals Name Type Priority Associated Diagnoses Orde r Schedule PHYSICAL THERAPY REFERRAL Outpatient Referral Routine Aftercare following joint replacement surgery, unspecified joint Presence of left artificial knee joint Expected: 06/14/2024, Expires: 06/14/2025 documented as of this encounter Visit Diagnoses Diagnosis Aftercare following joint replacement surgery, unspecified joint- Primary Presence of left artificial knee joint Knee joint replacement by other means documented in this encounter Additional Health Concerns Assessment Noted Time PHQ-9 Depression Total Score: 0 09/03/19 24 9:32 AM CDT documented as of this encounter Care Teams Director Cardiovascular Relationship Specialty Start Date End Date Tim Altman MD [address] [place] [address] PCP - General Internal Medicine 12/03/15 documented as of this encounter
--- OUTSIDE RECORDS SUMMARY | 2024-06-22 21:57 | XMS_ITS | Encounter Summary ---
Author Organization [facility] Address [address] [place], [place] [address] [address] Care Team Providers Care Screw Cutter Name Role Phone Tim Altman MD Primary Care Provider [phone]- [phone] Reason for Visit * Reason Onset Date Comments Follow-up 10/28/2010 Encounter Details Date Type Department Care Team (Late st Contact Info) Description 10/28/2010 Telephone [facility] Medical [facility] - Rheumatology [address] [place] [address] Casper Smith MD Follow-up Social History Tobacco [...] [facility]. documented in this encounter Plan of Treatment Not on file documented as of this encounter Visit Diagnoses Not on filedocumented in this encounter Care Teams Screw Cutter Relationship Specialty Start Date End Date Tim Altman MD PCP - General 10/18/10 documented as of this encounter
--- OUTSIDE RECORDS SUMMARY | 2024-06-22 21:57 | XMS_ITS | Encounter Summary ---
Author Organization [facility] Address [address] [place], [place] [address] [address] Care Team Providers Care Loan Closer Name Role Phone Tim Altman MD Primary Care Provider [phone]- [phone] Reason for Visit * Reason Comments Lower Extremity Problem Encounter Details Date Type Department Care Team (Latest Contact Info) Description 01/23/2011 10:40 AM CDT Procedure visit [facility] - Family Medicine [address] [place] [address] DJD (degenerative joint disease) of knee Social [...] leg documented in this encounter Care Teams Loan Closer Relationship Specialty Start Date End Date Tim Altman MD PCP - General 10/18/10 documented as of this encounter
--- OUTSIDE RECORDS SUMMARY | 2024-06-22 21:57 | XMS_ITS | Encounter Summary ---
Author Organization [facility] Address [address] [place] [address] Phone Care Team Providers Care Show Card Writer Name Role Phone Tim Altman MD Primary Care Provider Sanaz Mendoza RN Unavailable Unavailable Reason for Visit * Reason Comments Medication Refill Encounter Details Date Type Department Care Team (Late st Contact Info) Description 03/09/2024 Refill [facility] - [place] [address] [place] [address] Tim Altman MD [address] [facility] [address] Medication Refill Social History Tobacco Use Types Packs/Day Years Used Date Smoking Tobacco: Former Cigarettes Q uit: 07/23/1969 Passive Smoke Exposure: Past Smokeless Tobacco: Never Alcohol Use Standard Drinks/Week Comments Not Currently 0 (1 standard drink = 0.6 oz pur e alcohol) [facility] Utilities Answer Date Recorded In the past 12 months has [employer], gas, oil, or water company threatened to [...] often do you attend chur ch or moravian services? Never 09/03/2023 Do you belong to [...] 1-9 0 08/14 [facility] of Occupat ional Health - [...] Dept 09/03/23 Office Visit Tim Altman MD [facility] [place] Showing recent visits within past 365 days and meeting all other requirements Today's Visits Date Type Provider Dept 03/09/24 Office Visit Tim Altman MD [facility] [place] Showing today's visits and meeting all other requirements Future Appointments No visits were found meeting these conditions. Showing future appointments within next 90 days and meeting all other requirements documented in this encounter Plan of Treatment Upcoming Encounters Date Type Department Care Team (Late st Contact Info) Description 06/30/2024 10:00 AM CARE SERVICES MANAGER Physical Therapy [facility] at [place] [address] [place] [address] Raul Young MD [address] [place] [address] Brandi Coffey, PT [place] Discharge Disposition: Discharged to home or Selfcare 08/31/2024 9:30 AM CDT [facility] Visit [facility] - [place] [address] [place] [phone] Tim Altman MD [address] [place] [address] documented as of this encounter Visit Diagnoses Not on filedocumented in this encounter Additional Health Concerns Assessment Noted Time PHQ-9 Depression Total Score: 0 09/03/19 24 9:32 AM CDT documented as of this encounter Care Teams Show Card Writer Relationship Specialty Start Date End Date Tim Altman MD [address] [place] [address] PCP - General Internal Medicine 12/03/15 Sanaz Mendoza, RN [place] Nurse Commutator V Ring Assembler 03/09/24 03/09/24 documented as of this encounter
--- OUTSIDE RECORDS SUMMARY | 2024-06-22 21:57 | XMS_ITS | Encounter Summary ---
Author Organization [facility] Address [address] [place] [address] Phone Care Team Providers Care White Sugar Boiler Name Role Phone Tim Altman MD Primary Care Provider [phone] Reason for Visit * Reason Comments Medication Refill Encounter Details Date Type Department Care Team (Late st Contact Info) Description 11/13/2022 Refill [facility] - [place] [address] [place] [address] Sangita Best, [facility] [address] [facility] [place] [address] Medication Refill Social History Tobacco [...] AM CDT Medication(s) [facility] Medication Refill Standing Order for [...] 07/09/22 Office Visit Tim Altman MD [facility] [place] 01/14/22 Office Visit Tim Altman MD [facility] [place] 12/30/21 Telemedicine [facility] [place] Showing recent visits within past 365 days and meeting all other requirements Future Appointments Date Type Provider Dept 01/07/23 Appointment Tim Altman MD [facility] [place] Showing future appointments within next 90 days and meeting all other requirements documented in this encounter Plan of Treatment Upcoming Encounters Date Type Department Care Team (Late st Contact Info) Description 06/30/2024 10:00 AM ERECTION SHOP SUPERVISOR Physical Therapy [facility] at [facility] [address] [place] [address] Raul Young MD [address] [place] [address] Brandi Coffey, PT [place] Discharge Disposition: Discharged to home or Selfcare 08/31/2024 9:30 AM CDT Office Visit [facility] - Internal Medicine - [place] [address] [place] [address] Tim Altman MD [address] [place] [address] documented as of this encounter Visit Diagnoses Not on filedocumented in this encounter Additional Health Concerns Assessment Noted Time PHQ-9 Depression Total Score: 0 06/18/19 21 3:00 PM ERECTION SHOP SUPERVISOR documented as of this encounter Care Teams White Sugar Boiler Relationship Specialty Start Date End Date Tim Altman MD [address] [place] [address] PCP - General Internal Medicine 12/03/15 documented as of this encounter
--- OUTSIDE RECORDS SUMMARY | 2024-06-22 21:58 | XMS_ITS | Encounter Summary ---
Author Organization [facility] Care Team Providers Care Tenant Coordinator Name Role Phone Tim Altman MD Primary Care Provider [phone]- [phone] Encounter Details Date Type Department Care Team [...] COVID-19? No / Unsure 06/20/2021 3:26 PM BONE TENDER documented as of this encounter Plan of Treatment Upcoming Encounters Date Type Department Care Team (Late st Contact Info) Description 06/30/2024 10:00 AM BONE TENDER Physical Therapy [facility] [address] [place] [address] Raul Young MD [address] [place] [address] Brandi Coffey, PT [place] Discharge Disposition: Discharged to home or Selfcare 08/31/2024 9:30 AM CDT [facility] [address] [place] [phone] Tim Altman MD [address] [place] [address] documented as of this encounter Visit Diagnoses Not on filedocumented in this encounter Additional Health Concerns Assessment Noted Time PHQ-9 Depression Total Score: 0 06/18/19 21 3:00 PM BONE TENDER documented as of this encounter Care Teams Tenant Coordinator Relationship Specialty Start Date End Date Tim Altman MD [address] [place] [address] PCP - General Internal Medicine 12/03/15 documented as of this encounter
--- OUTSIDE RECORDS SUMMARY | 2024-06-22 21:58 | XMS_ITS | Encounter Summary ---
Author Organization [facility] Address [address] [place] [address] Phone Care Team Providers Care Nutritional Assistant Name Role Phone Tim Altman MD Primary Care Provider [phone] Reason for Visit * Reason Comments Medication Refill Encounter Details Date Type Department Care Team (Late st Contact Info) Description 08/02/2021 Refill [facility] - Internal Medicine - [place] [address] [place] [address] Tim Altman MD [address] [place] [address] Medication Refill Social History Tobacco [...] 06/20/21 Office Visit Tim Altman MD [facility] [place] 03/12/21 Office Visit Tim Altman MD [facility] [place] 12/18/20 Office Visit Tim Altman MD [facility] Showing recent visits within past 365 days and meeting all other requirements Future Appointments No visits were found meeting these conditions. Showing future appointments within next 90 days and meeting all other requirements MATIC MACHINE OPERATOR documented in this encounter Plan of Treatment Upcoming Encounters Date Type Department Care Team (Late st Contact Info) Description 06/30/2024 10:00 AM BOREMATIC MACHINE OPERATOR Physical Therapy [facility] at [facility] [address] [facility], [address] [place] [address] Raul Young MD [address] [place] [address] Brandi Coffey, PT [place] Discharge Disposition: Discharged to home or Selfcare 08/31/2024 9:30 AM CDT Office Visit [facility] - Internal Medicine - [place] [address] [place] [address] Tim Altman MD [address] [place] [address] [address] documented as of this encounter Visit Diagnoses Not on filedocumented in this encounter Additional Health Concerns Assessment Noted Time PHQ-9 Depression Total Score: 0 01/04/20 21 3:00 PM BOREMATIC MACHINE OPERATOR documented as of this encounter Care Teams Nutritional Assistant Relationship Specialty Start Date End Date Tim Altmna MD [address] [place] [address] PCP - General Internal Medicine 12/03/15 documented as of this encounter
--- OUTSIDE RECORDS SUMMARY | 2024-06-22 21:58 | XMS_ITS | Encounter Summary ---
Author Organization [facility] Address [address] [place] [address] Phone Care Team Providers Care Insurance Consultant Name Role Phone Tim Altman MD Primary Care Provider [phone] [phone] Reason for Referral * Radiology Services (Routine) - Closed Specialty Diagnoses / Procedures Referred By Contac t Referred To Contact Radiology Diagnoses Breast cancer screening by mammogram Procedures YULIET SCREENING BILATERAL DIGITAL W CAD W Tim Durham MD [address] [place] [address] Phone: tel: fax: Referral ID Status Reason Start Date Expiration Date Visits Re quested Visits Authorized [id number] Closed 07/09/2022 1 1 Reason for Visit * Radiology Services (Routine) - Closed Specialty Diagnoses / Procedures Referred By Dariela nettles Referred To Contact Radiology Diagnoses Breast cancer screening by mammogram Procedures YULIET SCREENING BILATERAL DIGITAL W CAD W Tim Durham MD [address] [place] [address] Phone: tel: fax: Referral ID Status Reason Start Date Expiration Date Visits Re quested Visits Authorized [id number] Closed 07/09/2022 1 1 Encounter Details Date Type Department Care Team (Late st Contact Info) Description 08/28/2022 8:25 AM CDT - 08/28/2022 11:59 PM CDT Hospital Encounter [facility] Mammography [address] [place] [phone] Tim Altman MD [address] [place] [address] Discharge Disposition: Discharged to home or Selfcare [...] st Contact Info) Description 06/30/2024 10:00 AM HOSTESS Physical Therapy [facility] Re[facility] at [facility] [address] [place] [address] Raul Young MD [address] [place] [address] Brandi Coffey, PT [place] Discharge Disposition: Discharged to home or Selfcare 08/31/2024 9:30 AM CDT Office Visit [facility] - Internal Medicine - [place] [address] [place] [phone] Tim Altman MD [address] [place] [address] documented as of this encounter Procedures Procedure [...] exams dated: ??12/30/2018, 01/06/2018, 12/17/2017, and 12/11/2016 [facility]. ?? BREAST TISSUE:There are scattered fibroglandular densities [...] Meme Espitia M.D. ? ab/andrea:08/28/2022 16:50:56 ?? Foundry Hand(s): Cristina ??RT Manuela(R)(M), [facility] letter sent: Normal Exam ?? Reading location: [facility] BI-RADS: 1 Negative Procedure Note Meme Espitia [...] exams dated: 12/30/2018, 01/06/2018, 12/17/2017, and 12/11/2016 [facility]. BREAST TISSUE:There are scattered fibroglandular [...] exam. Electronically signed by: Meme zambrano/andrea:08/28/2022 16:50:56 Foundry Hand(s): Cristina Roy RT(R)(M), [facility] letter sent: Normal Exam Reading location: [facility] BI-RADS: 1 Negative us Tim Altman MD IMG MAMMO ORDERABLES Final Result documented in this encounter Visit Diagnoses Diagnosis Breast cancer screening by mammogram documented in this encounter Additional Health Concerns Assessment Noted Time PHQ-9 Depression Total Score: 0 06/18/19 21 3:00 PM HOSTESS documented as of this encounter Care Teams Insurance Consultant Relationship Specialty Start Date End Date Tim Altman MD [address] [place] [address] PCP - General Internal Medicine 12/03/15 documented as of this encounter
--- OUTSIDE RECORDS SUMMARY | 2024-06-22 21:58 | XMS_ITS | Encounter Summary ---
Author Organization [facility] Care Team Providers Care Cyber Incident Handler Name Role Phone Tim Altman MD [...] st Contact Info) Description 06/30/2024 10:00 AM CLAIM PROCESSING SPECIALIST Physical Therapy [facility] Rehab at [facility] [address] [place] [phone] Raul Young MD [address] [place] [address] Brandi Coffey, PT [place] Discharge Disposition: Discharged to home or Selfcare 08/31/2024 9:30 AM CDT [facility] - [place] [address] [place] [address] Tim Altman MD [address] [place] [address] documented as of this encounter Visit Diagnoses Not on filedocumented in this encounter Additional Health Concerns Assessment Noted Time PHQ-9 Depression Total Score: 0 06/18/19 21 3:00 PM CLAIM PROCESSING SPECIALIST documented as of this encounter Care Teams Cyber Incident Handler Relationship Specialty Start Date End Date Tim Altman MD [address] [place] [address] PCP - General Internal Medicine 12/03/15 documented as of this encounter
--- OUTSIDE RECORDS SUMMARY | 2024-06-22 21:58 | XMS_ITS | Encounter Summary ---
Author Organization [facility] Address [address] [place] [address] Phone Care Team Providers Care Manufacturing Chief Engineer Name Role Phone Tim Altman MD Primary Care Provider Reason for Visit * Reason Comments Care Management High Risk Identifica tion Encounter Details Date Type Department Care Team (Late st Contact Info) Description 11/13/2021 Care Management [facility] Director Of Digital Technology Management [address] [place] [address] Rita Root DC Care Management (High Risk Identification) Social History [...] st Contact Info) Description 06/30/2024 10:00 AM HEAD OF SALES AND MARKETING [facility] [address] [place] [address] Raul Young MD [address] [place] [address] Brandi Coffey, PT [place] Discharge Disposition: Discharged to home or Selfcare 08/31/2024 9:30 AM CDT Office Visit [facility] Medical Group - Internal Medicine - [place] [address] [place] [address] Tim Altman MD [address] [place] [address] documented as of this encounter Visit Diagnoses Not on filedocumented in this encounter Additional Health Concerns Assessment Noted Time PHQ-9 Depression Total Score: 0 06/18/19 21 3:00 PM HEAD OF SALES AND MARKETING documented as of this encounter Care Teams Manufacturing Chief Engineer Relationship Specialty Start Date End Date Tim Altman MD [address] [place] [address] PCP - General Internal Medicine 12/03/15 documented as of this encounter
--- OUTSIDE RECORDS SUMMARY | 2024-06-22 21:58 | XMS_ITS | Encounter Summary ---
Author Organization [facility] Address [address] [place] [address] Phone Care Team Providers Care Radiology Technologist Name Role Phone Tim Altman MD Primary Care Provider Reason for Visit * Reason Comments Cough Still has cough afte r covid Encounter Details Date Type Department Care Team (Late st Contact Info) Description 01/14/2022 10:45 AM CDT [facility] - [place] [address] [place] [address] Tim Altman MD [address] [place] [address] Post-COVID chronic cough (Primary Dx) [...] activity and well- balanced diet. * Kylah Pace RMA - 01/14/2022 10:45 [...] MD fluticasone (FLONASE) 50 MCG/ACT Suspension 1 [place] by Nasal route in the morning and [...] - 01/14/2022 10:45 AM CDT PROGRESS NOTE [facility] - INTERNAL MEDICINE [address] [place] [address] PHONE: [phone] FAX: [phone] 01/14/2022 NAME: Lexi Mcneil, : 1955, Assessment [...] st Contact Info) Description 06/30/2024 10:00 AM PROPELLANT CHARGE LOADER Physical Therapy [facility] Rehab at [facility] [address] [place] [address] Raul Young MD [address] [place] [address] Brandi Coffey, PT [place] Discharge Disposition: Discharged to home or Selfcare 08/31/2024 9:30 AM CDT [facility] Medicine [place] [address] [place] [address] Tim Altman MD [address] [facility] [place] [address] documented as of this encounter Visit Diagnoses Diagnosis Post-COVID chronic cough- Primary documented in this encounter Additional Health Concerns Infection Onset Date Last Indicated Resolved Time COVID - 19 Confirmed 01/03/2022 01/03/2022 022 12:16 AM CDT Assessment Noted Time PHQ-9 Depression Total Score: 0 06/18/19 21 3:00 PM PROPELLANT CHARGE LOADER documented as of this encounter Care Teams Radiology Technologist Relationship Specialty Start Date End Date Tim Altman MD [address] [place] [address] PCP - General Internal Medicine 12/03/15 documented as of this encounter
--- OUTSIDE RECORDS SUMMARY | 2024-06-22 21:58 | XMS_ITS | Encounter Summary ---
Author Organization [facility] Care Team Providers Care Drapery Seamstress Name Role Phone Tim Altman MD Primary Care Provider [phone]- [phone] Encounter Details Date Type Department Care Team [...] Coronavirus/COVID-19? No / Unsure 07/09/2022 7:50 AM SOFTWARE CONTROLS ENGINEER documented as of this encounter Functional Status [...] Questionnaire -2 Score 0 07/09/2022 8:00 AM SOFTWARE CONTROLS ENGINEER Doris Babb CMA documented as of this encounter Plan of Treatment Upcoming Encounters Date Type Department Care Team (Late st Contact Info) Description 06/30/2024 10:00 AM SOFTWARE CONTROLS ENGINEER Physical Therapy [facility] at [facility] [address] [place] [address] Raul Young MD [address] [place] [address] Brandi Coffey, PT [place] Discharge Disposition: Discharged to home or Selfcare 08/31/2024 9:30 AM CDT Office Visit [facility] Medical Group - Internal Medicine - [place] [address] [place] [address] Tim Altman MD [address] [place] [address] documented as of this encounter Visit Diagnoses Not on filedocumented in this encounter Additional Health Concerns Assessment Noted Time PHQ-9 Depression Total Score: 0 06/18/19 21 3:00 PM SOFTWARE CONTROLS ENGINEER documented as of this encounter Care Teams Drapery Seamstress Relationship Specialty Start Date End Date Tim Altman MD [address] [place] [address] PCP - General Internal Medicine 12/03/15 documented as of this encounter
--- OUTSIDE RECORDS SUMMARY | 2024-06-22 21:58 | XMS_ITS | Encounter Summary ---
Author Organization [facility] Address [address] [place] [address] Phone Care Team Providers Care Stator Tester Name Role Phone Tim Altman MD Primary Care Provider [phone]- [phone] Reason for Visit * Reason Comments Medication Refill Encounter Details Date Type Department Care Team (Late st Contact Info) Description 05/19/2022 Refill [facility] - Internal Medicine - [place] [address] [place] [address] Tim Altman MD [address] [place] [address] Medication Refill Social History Tobacco [...] PM CST Medication(s) refilled and signed per [facility] [...] 01/14/22 Office Visit Tim Altman MD [place] [place] 12/30/21 Telemedicine Tim Altman MD [place] [place] 06/20/21 [facility] [place] Show[facility] recent visits within past 365 days and meeting all other requirements Future Appointments Date Type Provider Dept 07/09/22 Appointment [facility] [place] Showing future appointments within next 90 days and meeting all other requirements CLERK documented in this encounter Plan of Treatment Upcoming Encounters Date Type Department Care Team (Late st Contact Info) Description 06/30/2024 10:00 AM OSD CLERK Physical Therapy [facility] Rehab at [facility] [address] [place] [address] Raul Young MD [address] [place] [address] Brandi Coffey, PT [place] Discharge Disposition: Discharged to home or Selfcare 08/31/2024 9:30 AM CDT Office Visit [facility] - Internal Medicine - [place] [address] [place] [place] [address] Tim Altman MD [address] [place] [address] [address] documented as of this encounter Visit Diagnoses Not on filedocumented in this encounter Additional Health Concerns Assessment Noted Time PHQ-9 Depression Total Score: 0 06/18/19 21 3:00 PM OSD CLERK documented as of this encounter Care Teams Stator Tester Relationship Specialty Start Date End Date Tim Altman MD [address] [place] [address] PCP - General Internal Medicine 12/03/15 documented as of this encounter
--- OUTSIDE RECORDS SUMMARY | 2024-06-22 21:58 | XMS_ITS | Encounter Summary ---
Author Organization [facility] Address [address] [place] [address] Phone Care Team Providers Care Jewel Lathe Operator Name Role Phone Tim Altman MD Primary Care Provider [phone] Reason for Referral * Radiology Services (Routine) - Closed Specialty Diagnoses / Procedures Referred By Contac t Referred To Contact Radiology Diagnoses Breast cancer screening by mammogram Procedures YULIET SCREENING BILATERAL DIGITAL W CAD W RAFAEL Tim Altman MD [address] [place] [address] Phone: tel: fax: Referral ID Status Reason Start Date Expiration Date Visits Re quested Visits Authorized [id number] Closed 07/09/2022 1 1 IMPLEMENT ENGINE MECHANIC Reason for Visit * Reason Comments Hypertension 3 mo f/u Encounter Details Date Type Department Care Team (Late st Contact Info) Description 07/09/2022 8:45 AM FARM IMPLEMENT ENGINE MECHANIC [facility] - [place] [address] [place] [address] Tim Altman MD [address] [place] [address] Reflex sympathetic dystrophy of left lower extremity [...] Coronavirus/COVID-19? No / Unsure 07/09/2022 7:50 AM FARM IMPLEMENT ENGINE MECHANIC documented as of this encounter Last Filed Vital Signs Vital Sign Reading Time Taken Comments Blood Pressure 136/68 07/09/2022 8:08 AM FARM IMPLEMENT ENGINE MECHANIC Pulse 90 07/09/2022 8:08 AM FARM IMPLEMENT ENGINE MECHANIC Temperature 36.3 ??C (97.4 ??F) 07/09/2022 8:08 AM CS T Respiratory Rate - - Oxygen Saturation 98% 07/09/2022 8:08 AM FARM IMPLEMENT ENGINE MECHANIC Inhaled Oxygen Concentration - - Weight 88 kg (194 lb) 07/09/2022 8:08 AM FARM IMPLEMENT ENGINE MECHANIC Height 157.5 cm (5' 2 ) 07/09/2022 8:08 AM FARM IMPLEMENT ENGINE MECHANIC Body Mass Index 35.48 07/09/2022 8:08 AM FARM IMPLEMENT ENGINE MECHANIC documented in this encounter Functional Status * Question Answer Date of Assessment Author Little interest or pleasure in doing things Not at all 07/09/2022 8:00 AM Doris Lucas CMA Feeling down, depressed, or hopeless Not at all 07/09/2022 8:00 AM FARM IMPLEMENT ENGINE MECHANIC Doris Babb CMA * Over the past 2 weeks, how often have you been bothered by any of the following problems? Question Answer Date of Assessment Author Patient Health Questionnaire -2 Score 0 07/09/2022 8:00 AM FARM IMPLEMENT ENGINE MECHANIC Doris Babb CMA documented as of this [...] MD fluticasone (FLONASE) 50 MCG/ACT Suspension 1 [place] by Nasal route in the morning and [...] the patient today: Mammogram, Smoking and Depression IMPLEMENT ENGINE MECHANIC * Tim Altman MD - 07/09/2022 8:45 AM CST PROGRESS NOTE [facility] - [facility]ICINE [address] [place] [address] PHONE: [phone] FAX: [phone] 07/09/2022 NAME: Lexi Mcneil, : 1955, Assessment [...] multiple sites (HCC) Comments: Continue follow-up with date night caregiver GERD without esophagitis Comments: Stable. Continue current medication Restless leg syndrome Comments: Stable. Continue current medication Follow-up in 6 months, sooner if needed Chief Complaint Patient presents with ??? Hypertension 3 mo f/u HPI Patient is here for follow-up for RSD and other medical problems. Patient is off metoprolol due to side effects. Was discontinued by date night caregiver. Monitoring blood pressure at home remains less than 140/90. No chest pain or palpitation. Left lower extremity pain remains stable. Generalized arthralgia stable. Tolerating medications well. ROS Review of systems was negative, except as documented in [facility] PHYSICAL EXAM VITALS: Wt Readings from Last [...] By: Tim Altman MD 07/09/2022 8:59 AM FARM IMPLEMENT ENGINE MECHANIC IMPLEMENT ENGINE MECHANIC documented in this encounter Plan of Treatment Upcoming Encounters Date Type Department Care Team (Late st Contact Info) Description 06/30/2024 10:00 AM FARM IMPLEMENT ENGINE MECHANIC [facility] [address] [place] [address] Raul Young MD [address] [place] [address] Brandi Coffey, PT [place] Discharge Disposition: Discharged to home or Selfcare 08/31/2024 9:30 AM CDT [facility] - [place] [address] [place] [address] Tim Altman MD [address] [facility] [place] [address] documented as of this encounter Results * [...] copy. Current study was also evaluated with eShares version 7.2. 2D digital mammographic views, as well as 3D digital tomosynthesis were performed in the CC and MLO projections. ?? CLINICAL: Routine screening. Patient has no complaints. She reports a weight loss of 25 pounds. No personal history of cancer. Two maternal aunts had breast cancer. ?? COMPARISONS: Comparison is made to exams dated: ??12/30/2018, 01/06/2018, 12/17/2017, and 12/11/2016 [facility]. ?? BREAST TISSUE:There are scattered fibroglandular densities [...] Meme Espitia M.D. ? /penrad:08/28/2022 16:50:56 ?? Media Reporter(s): Cristina ??RT Manuela(R)(M), [facility] letter sent: Normal Exam ?? Reading location: [facility] BI-RADS: 1 Negative Procedure Note Meme Espitia [...] exams dated: 12/30/2018, 01/06/2018, 12/17/2017, and 12/11/2016 [facility]. BREAST TISSUE:There are scattered fibroglandular densities in [...] signed by: Meme Espitia M.D. ab/andrea:08/28/2022 16:50:56 Media Reporter(s): RT Sasha(R)(M), [facility] letter sent: Normal Exam Reading location: [facility] BI-RADS: 1 Negative us Tim Altman MD [...] Score: 0 06/18/19 21 3:00 PM FARM IMPLEMENT ENGINE MECHANIC documented as of this encounter Care Teams Jewel Lathe Operator Relationship Specialty Start Date End Date Tim Altman MD [address] [place] [address] PCP - General Internal Medicine 12/03/15 documented as of this encounter
--- OUTSIDE RECORDS SUMMARY | 2024-06-22 21:58 | XMS_ITS | Encounter Summary ---
Author Organization [facility] Address [address] [place] [address] Phone Care Team Providers Care Clay Transporter Name Role Phone Tim Altman MD Primary Care Provider [phone]- [phone] Reason for Visit * Reason Comments Medication Refill Encounter Details Date Type Department Care Team (Late st Contact Info) Description 06/16/2022 Refill [facility] - [place] [address] [place] [address] Tim Altman MD [address] [place] [address] Medication Refill Social History Tobacco [...] Dept 01/14/22 [facility] [place] 12/[facility]21 Telemedicine Tim Altman MD [facility] [place] 06/20/21 Office Visit Tim Altman MD [facility] [place] Showing recent visits within past 365 days and meeting all other requirements Future Appointments Date Type Provider Dept 07/09/22 Appointment [facility] [place] Showing future appointments within next 90 days and meeting all other requirements PREPARER documented in this encounter Plan of Treatment Upcoming Encounters Date Type Department Care Team (Late st Contact Info) Description 06/30/2024 10:00 AM HAIR PREPARER Physical Therapy [facility] Rehab at [facility] [address] [place] [address] Raul Young MD [address] [place], [place] [id number] Brandi Coffey, PT [place] Discharge Disposition: Discharged to home or Selfcare 08/31/2024 9:30 AM CDT Office Visit [facility] - Internal Medicine - [place] [address] [place] [address] Tim Altman MD [address] [place] [address] documented as of this encounter Visit Diagnoses Not on filedocumented in this encounter Additional Health Concerns Assessment Noted Time PHQ-9 Depression Total Score: 0 06/18/19 21 3:00 PM HAIR PREPARER documented as of this encounter Care Teams Clay Transporter Relationship Specialty Start Date End Date Tim Altman MD [address] [place] [address] PCP - General Internal Medicine 12/03/15 documented as of this encounter
--- OUTSIDE RECORDS SUMMARY | 2024-06-22 21:58 | XMS_ITS | Encounter Summary ---
Author Organization [facility] Address [address] [place] [address] Phone Care Team Providers Care Enterprise Account Executive Name Role Phone Tim Altman MD Primary Care Provider [phone]- [phone] Reason for Visit * Reason Comments Medication Refill Encounter Details Date Type Department Care Team (Late st Contact Info) Description 04/08/2021 Refill [facility] - Internal Medicine - [place] [address] [place] [address] Tim Altman MD [address] [place] [address] Medication Refill Social History Tobacco [...] Medication(s) [facility] Chronic Medication Refill Standing Order [...] 03/12/21 Office Visit Tim Altman MD [facility] [place] 12/18/20 Office Visit Tim Altman MD [facility] [place] 06/18/20 Office Visit Tim Altman MD [facility] [place] 05/22/20 Office Visit Tim Altman MD [facility] [place] Showing recent visits within past 365 days and meeting all other requirements Future Appointments Date Type Provider Dept 06/20/21 Appointment Tim Altman MD [facility] [place] Showing future appointments within next 90 days [...] 03/12/21 Office Visit Tim Altman MD [facility] [place] 12/18/20 Office Visit Tim Altman MD [facility] [place] 06/18/20 Office Visit [facility] MD [facility] [place] 05/22/20 Office Visit [facility] [place] Showing recent visits within past 365 days and meeting all other requirements Future Appointments Date Type Provider Dept 06/20/21 Appointment Tim Altman MD [place] [place] Showing future appointments within next 90 days and meeting all other requirements documented in this encounter Plan of Treatment Upcoming Encounters Date Type Department Care Team (Late st Contact Info) Description 06/30/2024 10:00 AM GREEN WARE CASTER Physical Therapy [facility] Re[facility] at [facility] [address] [place] [address] Raul Young MD [address] [place] [address] Brandi Coffey, PT [place] Discharge Disposition: Discharged to home or Selfcare 08/31/2024 9:30 AM CDT Office Visit [facility] - Internal Medicine - [place] [address] [place] [address] Tim Altman MD [address] [place] [address] documented as of this encounter Visit Diagnoses Not on filedocumented in this encounter Additional Health Concerns Assessment Noted Time PHQ-9 Depression Total Score: 0 06/18/19 21 3:00 PM GREEN WARE CASTER documented as of this encounter Care Teams Enterprise Account Executive Relationship Specialty Start Date End Date Tim Altman MD [address] [place] [address] PCP - General Internal Medicine 12/03/15 documented as of this encounter
--- OUTSIDE RECORDS SUMMARY | 2024-06-22 21:58 | XMS_ITS | Encounter Summary ---
Author Organization [facility] Address [address] [place] [address] Phone Care Team Providers Care Supervisor Precision Optical Elements Name Role Phone Tim Altman MD Primary Care Provider [phone]- [phone] Reason for Visit * Reason Comments Medication Refill Encounter Details Date Type Department Care Team (Late st Contact Info) Description 05/06/2021 Refill [facility] Medical Group - Internal Medicine - [place] [address] [place] [address] Tim Altman MD [address] [place] [address] Medication Refill Social History Tobacco [...] Berenice Davis RN - 05/06/2021 11:43 AM GENERAL INSPECTOR Medication failed the protocol, provider to review [...] 03/12/21 Office Visit Tim Altman MD [facility] [place] 12/18/20 Office Visit Tim Altman MD [facility] [place] 06/18/20 Office Visit Tim Altman MD [facility] [place] 05/22/20 Office Visit Tim Altman MD [facility] [place] Showing recent visits within past 365 days and meeting all other requirements Future Appointments Date Type Provider Dept 06/20/21 Appointment Tim Altman MD [facility] [place] Showing future appointments within next 90 days and meeting all other requirements RAL INSPECTOR documented in this encounter Plan of Treatment Upcoming Encounters Date Type Department Care Team (Late st Contact Info) Description 06/30/2024 10:00 AM GENERAL INSPECTOR Physical Therapy [facility] Rehab at [facility] [address] [place] [address] Raul Young MD [address] [place] [address] Brandi Coffey, PT [place] Discharge Disposition: Discharged to home or Selfcare 08/31/2024 9:30 AM CDT Office Visit [facility] Medical Group - Internal Medicine - [place] [address] [place] [address] Tim Altman MD [address] [place] [address] documented as of this encounter Visit Diagnoses Not on filedocumented in this encounter Additional Health Concerns Assessment Noted Time PHQ-9 Depression Total Score: 0 06/18/19 21 3:00 PM GENERAL INSPECTOR documented as of this encounter Care Teams Supervisor Precision Optical Elements Relationship Specialty Start Date End Date Tim Altman MD [address] [place] [address] PCP - General Internal Medicine 12/03/15 documented as of this encounter
--- OUTSIDE RECORDS SUMMARY | 2024-06-22 21:58 | XMS_ITS | Encounter Summary ---
Author Organization [facility] Address [address] [place] [address] Phone Care Team Providers Care Diagnostic Medical Sonographer Name Role Phone Tim Altman MD Primary Care Provider Reason for Visit * Reason Comments Medication Refill Encounter Details Date Type Department Care Team (Late st Contact Info) Description 01/05/2021 Refill [facility] - [place] [address] [place] [address] Tim Altman MD [address] [place] [address] Medication Refill Social History Tobacco [...] AM CDT Medication(s) refilled and signed per [facility] Chronic Medication Refill Standing Order for Pediatricand [...] Dept 12/18/20 [facility] [place] 06/18/20 Office Visit Tim Altman MD [facility] [place] 05/22/20 Office Visit Tim Altman MD [facility] [place] Showing recent visits within past 365 days and meeting all other requirements Future Appointments No visits were found meeting these conditions. Showing future appointments within next 90 days and meeting all other requirements documented in this encounter Plan of Treatment Upcoming Encounters Date Type Department Care Team (Late st Contact Info) Description 06/30/2024 10:00 AM PRESIDENT OF [place] Physical Therapy [facility] at [facility] [address] [place] [address] Raul Young MD [address] [place], [place] [id number] Brandi Coffey, PT [place] Discharge Disposition: Discharged to home or Selfcare 08/31/2024 9:30 AM CDT Office Visit [facility] Medical Group - Internal Medicine - [place] [address] [place] [address] Tim Altman MD [address] [place] [address] documented as of this encounter Visit Diagnoses Not on filedocumented in this encounter Additional Health Concerns Assessment Noted Time PHQ-9 Depression Total Score: 0 06/18/19 21 3:00 PM PRESIDENT OF [place] documented as of this encounter Care Teams Diagnostic Medical Sonographer Relationship Specialty Start Date End Date Tim Altman MD [address] [place] [address] PCP - General Internal Medicine 12/03/15 documented as of this encounter
--- OUTSIDE RECORDS SUMMARY | 2024-06-22 21:58 | XMS_ITS | Encounter Summary ---
Author Organization [facility] Address [address] [place] [address] Phone Care Team Providers Care Tuber Machine Cutter Name Role Phone Tim Altman MD Primary Care Provider [phone]- [phone] Reason for Visit * Reason Comments Medication Refill Encounter Details Date Type Department Care Team (Late st Contact Info) Description 06/26/2021 Refill [facility] Medical Group - Internal Medicine - [place] [address] [place] [address] Tim Altman MD [address] [place] [address] Medication Refill Social History Tobacco [...] COVID-19? No / Unsure 06/20/2021 3:26 PM GROCERY CARRIER documented as of this encounter Miscellaneous Notes * Telephone Encounter - Berenice Davis RN - 06/26/2021 9:29 AM CST Medication(s) [facility]illed [facility] [...] Dept 06/20/21 [facility] Visit [facility] 03/12/21 Office Visit Tim Altman MD [facility] 12/18/20 Office Visit Tim Altman MD [facility] Showing recent visits within past 365 days and meeting all other requirements Future Appointments No visits were found meeting these conditions. Showing future appointments within next 90 days and meeting all other requirements ERY CARRIER documented in this encounter Plan of Treatment Upcoming Encounters Date Type Department Care Team (Late st Contact Info) Description 06/30/2024 10:00 AM GROCERY CARRIER Physical Therapy [facility] Rehab at [facility] [address] [place] [address] Raul Young MD [address] [place] [address] Brandi Coffey, PT [place] Discharge Disposition: Discharged to home or Selfcare 08/31/2024 9:30 AM CDT Office Visit [facility] [place] [address] [place] [address] Tim Altman MD [address] [place] [address] documented as of this encounter Visit Diagnoses Not on filedocumented in this encounter Additional Health Concerns Assessment Noted Time PHQ-9 Depression Total Score: 0 06/18/19 21 3:00 PM GROCERY CARRIER documented as of this encounter Care Teams Tuber Machine Cutter Relationship Specialty Start Date End Date Tim Altman MD [address] [place] [address] PCP - General Internal Medicine 12/03/15 documented as of this encounter
--- OUTSIDE RECORDS SUMMARY | 2024-06-22 21:58 | XMS_ITS | Encounter Summary ---
Author Organization [facility] Address [address] [place] [address] Phone Care Team Providers Care Livestock Breeder Name Role Phone Tim Altman MD Primary Care Provider [phone] Reason for Referral * Consult, Test & Initiate Treatment (Less Than 1 Week) - Closed Specialty Diagnoses / Procedures Referred By Contac t Referred To Contact Diagnoses Mouth ulcer Tim Altman MD [address] [place] [address] Phone: tel: fax: Mau Lawson MD [address] [place] [address] Phone: tel: fax: Referral ID Status Reason Start Date Expiration Date Visits Re quested Visits Authorized [id number] Closed 03/12/2021 1 1 Scheduling Instructions Lexi [...] [facility] - Internal Medicine - [place] [address] [place] [address] Tim Altman MD [address] [place] [address] Mouth ulcer (Primary Dx) Discharge Disposition: Discharged [...] MD methotrexate 2.5 MG Tablet 04/06/20 Yes ProviderSetffen MD metoprolol tartrate (LOPRESSOR) 25 MG Tablet [...] MEDICAL GROUP - [place] [address] PHONE: [phone] FAX: [phone] 03/12/2021 NAME: Lexi Jose Ramon Mcneil, : [...] st Contact Info) Description 06/30/2024 10:00 AM RIVET STICKER Physical [facility] at [facility] [address] [place] [address] Raul Young MD [address] [place] [address] Brandi Coffey, PT [place] Discharge Disposition: Discharged to home or Selfcare 08/31/2024 9:30 AM CDT Office Visit [facility] Medical Group - Internal Medicine - [place] [address] [place] [address] Tim Altman MD [address] [place] [address] documented as of this encounter Procedures Procedure [...] Total Score: 0 06/18/19 21 3:00 PM RIVET STICKER documented as of this encounter Care Teams Livestock Breeder Relationship Specialty Start Date End Date Tim Altman MD [address] [place] [address] PCP - General Internal Medicine 12/03/15 documented as of this encounter
--- OUTSIDE RECORDS SUMMARY | 2024-06-22 21:58 | XMS_ITS | Encounter Summary ---
Author Organization [facility] Care Team Providers Care Stock And Station Agent Name Role Phone Tim Altman MD [...] st Contact Info) Description 06/30/2024 10:00 AM OSTEOLOGY TEACHER Physical Therapy [facility] at [facility] [address] [place] [address] Raul Young MD [address] [place] [address] Brandi Coffey, PT [place] Discharge Disposition: Discharged to home or Selfcare 08/31/2024 9:30 AM CDT Office Visit [facility] [address] [place] [address] Tim Altman MD [address] [facility] [place] [address] documented as of this encounter Visit Diagnoses Not on filedocumented in this encounter Additional Health Concerns Assessment Noted Time PHQ-9 Depression Total Score: 0 06/18/19 21 3:00 PM OSTEOLOGY TEACHER documented as of this encounter Care Teams Stock And Station Agent Relationship Specialty Start Date End Date Tim Altman MD [address] [place] [address] PCP - General Internal Medicine 12/03/15 documented as of this encounter
--- OUTSIDE RECORDS SUMMARY | 2024-06-22 21:58 | XMS_ITS | Encounter Summary ---
Author Organization [facility] Care Team Providers Care Wastewater Technician Name Role Phone Tim Altman MD [...] st Contact Info) Description 06/30/2024 10:00 AM LICENSED VOCATIONAL NURSE Physical Therapy [facility] Rehab at [facility] [address] [place] [address] Raul Young MD [address] [place] [address] Brandi Coffey, PT [place] Discharge Disposition: Discharged to home or Selfcare 08/31/2024 9:30 AM CDT Office Visit [facility] [address] [place] [address] Tim Altman MD [address] [place] [address] documented as of this encounter Visit Diagnoses Not on filedocumented in this encounter Additional Health Concerns Infection Onset Date Last Indicated Resolved Time COVID - 19 Confirmed 01/03/2022 01/03/2022 022 12:16 AM CDT Assessment Noted Time PHQ-9 Depression Total Score: 0 06/18/19 21 3:00 PM LICENSED VOCATIONAL NURSE documented as of this encounter Care Teams Wastewater Technician Relationship Specialty Start Date End Date Tim Altman MD [address] [place] [address] PCP - General Internal Medicine 12/03/15 documented as of this encounter
--- OUTSIDE RECORDS SUMMARY | 2024-06-22 21:58 | XMS_ITS | Encounter Summary ---
Author Organization [facility] Address [address] [place] [address] Phone Care Team Providers Care Sweet Goods Machine Operator Name Role Phone Tim Altman MD Primary Care Provider [phone] Sanaz Mendoza RN Unavailable Unavailable Reason for Visit * Reason Comments Medication Refill Encounter Details Date Type Department Care Team (Late st Contact Info) Description 04/04/2022 Refill [facility] - Internal Medicine - [place] [address] [facility] [address] Tim Altman MD [address] [place] [address] Medication Refill Social History Tobacco [...] Contact Info) Description 06/30/2024 10:00 AM SENIOR PHP SOFTWARE DEVELOPER Physical Therapy [facility] Rehab at [facility] [address] [place] [address] Raul Young MD [address] [place] [address] Brandi Coffey, PT [place] Discharge Disposition: Discharged to home or Selfcare 08/31/2024 9:30 AM CDT Office Visit [facility] Medical Group - Internal Medicine [place] [address] [place] [address] Tim Altman MD [address] [place] [address] documented as of this encounter Visit Diagnoses Not on filedocumented in this encounter Additional Health Concerns Assessment Noted Time PHQ-9 Depression Total Score: 0 06/18/19 21 3:00 PM SENIOR PHP SOFTWARE DEVELOPER documented as of this encounter Care Teams Sweet Goods Machine Operator Relationship Specialty Start Date End Date Tim Altman MD [address] [place] [address] PCP - General Internal Medicine 12/03/15 Sanaz Mendoza, RN [place] Nurse Hospital Receptionist 03/09/24 03/09/24 documented as of this encounter
--- OUTSIDE RECORDS SUMMARY | 2024-06-22 21:58 | XMS_ITS | Encounter Summary ---
Author Organization [facility] Address [address] [place] [address] Phone Care Team Providers Care Infusion Nurse Name Role Phone Tim Altman MD Primary Care Provider [phone] Reason for Referral * Consult, Test & Initiate Treatment (Less Than 1 Week) - Closed Specialty Diagnoses / Procedures Referred By Contac t Referred To Contact Diagnoses Routine health maintenance (Adult) Tim Altman MD [address] [place] [address] Phone: tel: fax: [facility] [address] [place] [address] Phone: tel: fax: Referral ID Status Reason Start Date Expiration Date Visits Re quested Visits Authorized [id number] Closed 07/30/2021 1 1 Scheduling Instructions Lexi [...] lower extremity Other hyperlipidemia Restless leg syndrome PROCESSING ASSOCIATE Encounter Details Date Type Department Care Team (Late st Contact Info) Description 07/30/2021 Telephone [facility] - Internal Medicine - [place] [address] [place] [address] [place] [id number] Tim Altman MD [address] [place] [id number] Social History Tobacco Use Types Packs/Day [...] Tim Altman MD - 07/30/2021 1:54 PM MAIL PROCESSING ASSOCIATE Okay for referral PROCESSING ASSOCIATE * Telephone Encounter - Berenice Davis RN - 07/30/2021 1:49 PM CST ----- Message from Rosemary Mahajan sent at 07/30/2021 11:09 AM MAIL PROCESSING ASSOCIATE ----- Regarding: REFERRAL REQUEST PT IS REQUESTING A REFERRAL TO [facility] FOR [facility]ropractic (general adjustments). Appointment is on Thursday08-02-21 at 1:45pm Call back number:[phone] PROCESSING ASSOCIATE documented in this encounter Plan of Treatment Upcoming Encounters Date Type Department Care Team (Late st Contact Info) Description 06/30/2024 10:00 AM MAIL PROCESSING ASSOCIATE [facility] [address] [place] [address] Raul Young MD [address] [place] [address] Brandi Coffey, PT [place] Discharge Disposition: Discharged to home or Selfcare 08/31/2024 9:30 AM CDT Office Visit [facility] - Internal [facility] - [place] [address] [place] [id number] Tim Altman MD [address] [place] [id number] Scheduled Referrals Name Type Priority Associated Diagnoses [...] Total Score: 0 06/18/19 21 3:00 PM MAIL PROCESSING ASSOCIATE documented as of this encounter Care Teams Infusion Nurse Relationship Specialty Start Date End Date Tim Altman MD [address] [place] [address] PCP - General Internal Medicine 12/03/15 documented as of this encounter
--- OUTSIDE RECORDS SUMMARY | 2024-06-22 21:58 | XMS_ITS | Encounter Summary ---
Author Organization [facility] Care Team Providers Care Case Reviewer Name Role Phone Tim Altman MD [...] st Contact Info) Description 06/30/2024 10:00 AM PMO CONSULTANT Physical Therapy [facility] Rehab at [facility] [address] [place] [address] Raul Young MD [address] [place] [address] Brandi Coffey, PT [place] Discharge Disposition: Discharged to home or Selfcare 08/31/2024 9:30 AM CDT Office Visit [facility] [address] [place] [address] Tim Altman MD [address] [place] [address] documented as of this encounter Visit Diagnoses Not on filedocumented in this encounter Additional Health Concerns Assessment Noted Time PHQ-9 Depression Total Score: 0 06/18/19 21 3:00 PM PMO CONSULTANT documented as of this encounter Care Teams Case Reviewer Relationship Specialty Start Date End Date Tim Altman MD [address] [place] [address] PCP - General Internal Medicine 12/03/15 documented as of this encounter
--- OUTSIDE RECORDS SUMMARY | 2024-06-22 21:58 | XMS_ITS | Encounter Summary ---
Author Organization [facility] Address [address] [place] [address] Phone Care Team Providers Care Culturist Name Role Phone Tim Altman MD Primary Care Provider Sanaz Mendoza RN Unavailable Unavailable Reason for Visit * Reason Comments Medication Refill Encounter Details Date Type Department Care Team (Late st Contact Info) Description 03/29/2022 Refill [facility] - [place] [address] [facility] [place] [address] Tim Altman MD [address] [facility] [address] Medication Refill Social History Tobacco [...] st Contact Info) Description 06/30/2024 10:00 AM LOAN ASSOCIATE [facility] [address] [place] [address] Raul Young MD [address] [place] [address] Brandi Coffey, PT [place] Discharge Disposition: Discharged to home or Selfcare 08/31/2024 9:30 AM CDT Office Visit [facility] Medical Group - Internal Medicine - [place] [address] [place] [address] Tim Altman MD [address] [facility] [address] documented as of this encounter Visit Diagnoses Not on filedocumented in this encounter Additional Health Concerns Assessment Noted Time PHQ-9 Depression Total Score: 0 06/18/19 21 3:00 PM LOAN ASSOCIATE documented as of this encounter Care Teams Culturist Relationship Specialty Start Date End Date Tim Altman MD [address] [place] [address] PCP - General Internal Medicine 12/03/15 Sanaz Mendoza, RN [place] Nurse Explosive Specialist 03/09/24 03/09/24 documented as of this encounter
--- OUTSIDE RECORDS SUMMARY | 2024-06-22 21:58 | XMS_ITS | Encounter Summary ---
Author Organization [facility] Address [address] [place] [address] Phone Care Team Providers Care Industrial Painter Name Role Phone Tim Altman MD Primary Care Provider Encounter Details Date Type Department Care Team (Late st Contact Info) Description 01/06/2022 Telephone [facility] - [place] [address] [place] [address] Tim Altman MD [address] [facility] [place] [address] Social History Tobacco Use Types [...] Miscellaneous Notes * Telephone Encounter - Altman, Tim K, MD - 01/06/2022 10:36 AM CDT [...] st Contact Info) Description 06/30/2024 10:00 AM WET PROCESS ASSISTANT HEAD MILLER [facility] [address] [place] [address] Raul Young MD [address] [place] [address] Brandi Coffey, PT [place] Discharge Disposition: Discharged to home or Selfcare 08/31/2024 9:30 AM CDT Office Visit [facility] Medical Group - Internal Medicine - [place] [address] [place] [address] Tim Altman MD [address] [place] [address] documented as of this encounter Visit Diagnoses Not on filedocumented in this encounter Additional Health Concerns Infection Onset Date Last Indicated Resolved Time COVID - 19 Confirmed 01/03/2022 01/03/2022 022 12:16 AM CDT Assessment Noted Time PHQ-9 Depression Total Score: 0 06/18/19 21 3:00 PM WET PROCESS ASSISTANT HEAD MILLER documented as of this encounter Care Teams Industrial Painter Relationship Specialty Start Date End Date Tim Altman MD [address] [place] [address] PCP - General Internal Medicine 12/03/15 documented as of this encounter
--- OUTSIDE RECORDS SUMMARY | 2024-06-22 21:58 | XMS_ITS | Encounter Summary ---
Author Organization [facility] Address [address] [place] [address] Phone Care Team Providers Care Prop And Effects Designer Name Role Phone Tim Altman MD Primary Care Provider [phone] Reason for Visit * Reason Comments Medication Refill Encounter Details Date Type Department Care Team (Late st Contact Info) Description 07/12/2021 Refill [facility] Medical Group - Internal Medicine - [place] [address] [place] [address] Tim Altman MD [address] [place] [address] Medication Refill Social History Tobacco [...] COVID-19? No / Unsure 06/20/2021 3:26 PM PERFECT BIND MACHINE OPERATOR documented as of this encounter Miscellaneous Notes * Telephone Encounter - Berenice Davis RN - 07/15/2021 10:32 AM PERFECT BIND MACHINE OPERATOR Medication(s) refilled and signed per [facility] Chronic [...] 03/12/21 Office Visit Tim Altman MD [facility] 12/18/20 Office Visit Tim Altman MD [facility] Showing recent visits within past 365 days and meeting all other requirements Future Appointments No visits were found meeting these conditions. Showing future appointments within next 90 days and meeting all other requirements ECT BIND MACHINE OPERATOR documented in this encounter Plan of Treatment Upcoming Encounters Date Type Department Care Team (Late st Contact Info) Description 06/30/2024 10:00 AM PERFECT BIND MACHINE OPERATOR Physical Therapy [facility]hab at [facility] [address] [place] [address] Raul Young MD [address] [place] [address] Brandi Coffey, PT [place] Discharge Disposition: Discharged to home or Selfcare 08/31/2024 9:30 AM CDT Office Visit [facility] Medical Group - Internal Medicine - [place] [address] [place] [address] Tim Altman MD [address] [facility] [place] [address] documented as of this encounter Visit Diagnoses Not on filedocumented in this encounter Additional Health Concerns Assessment Noted Time PHQ-9 Depression Total Score: 0 06/18/19 21 3:00 PM PERFECT BIND MACHINE OPERATOR documented as of this encounter Care Teams Prop And Effects Designer Relationship Specialty Start Date End Date Tim Altman MD [address] [place] [address] PCP - General Internal Medicine 12/03/15 documented as of this encounter
--- OUTSIDE RECORDS SUMMARY | 2024-06-22 21:58 | XMS_ITS | Encounter Summary ---
Author Organization [facility] Address [address] [place] [address] Phone Care Team Providers Care Brand Planner Name Role Phone Tim Altman MD Primary Care Provider Reason for Visit * Reason Comments Knee Injury Encounter Details Date Type Department Care Team (Late st Contact Info) Description 09/09/2021 9:54 AM CDT - 09/09/2021 11:52 AM CDT Emergency [facility] Emergency [address] [place] [id number] Magalys Landry, COSMETICS AND TOILETRIES SALESPERSON, PARKING MANAGER [address] [place] [address] Patellar fracture Discharge Disposition: Discharged to home [...] through Care Everywhere. * Patellar Fracture Adult ([place]) documented in this encounter Medications at Time [...] Sim RN - 09/09/2021 10:24 AM CDT Burson and ice pack given. at bedside. Awaiting radiology * Magalys Landry APRN, PARKING MANAGER - 09/09/2021 10:14 AM CDT Chief Complaint [...] Yuri Colon M.D. BC: CELINA Report ID: [id number] Reading Location: [id number] XR ANKLE 3 OR MORE VIEWS LEFT (Final result) Result time 09/09/21 11:18:38 Final result by Yuri Colon MD (09/09/21 11:18:38) Impression: IMPRESSION: No acute osseous abnormality. Bhcj-zx-qpfxasdu degenerative changes as above. Narrative: EXAM DESCRIPTION: [...] Ankle mortise alignment is preserved. There is znbl-dk-xpvbiuki degenerative change. Midfoot degeneration is also seen, more pronounced distally. There is a small plantar calcaneal spur. SOFT TISSUES: There is no significant ankle effusion. OTHER: No other significant finding. THIS IS AN ELECTRONICALLY VERIFIED FINAL REPORT 09/09/2021 11:15 AM - Electronically signed by Yuri Colon M.D. BC: CELINA Report ID: [id number] Reading Location: [place] [address] Labs Reviewed - No data to display [...] Final Result IMPRESSION: No acute osseous abnormality. Fhtn-wd-hwfcdorb degenerative changes as above. MDM Number of [...] st Contact Info) Description 06/30/2024 10:00 AM DIGITAL STRATEGY SPECIALIST Physical Therapy [facility] at [facility] [address] [place] [address] Raul Young MD [address] [place] [address] Brandi Coffey, PT [place] Discharge Disposition: Discharged to home or Selfcare 08/31/2024 9:30 AM CDT Office Visit [facility] - Internal Medicine - [place] [address] [place] [address] Tim Altman MD [address] [place] [address] documented as of this encounter Procedures Procedure [...] AM T: ??09/09/2021 11:13 AM Report ID: [id number] Reading Location: ??[id number] Procedure Note Yuri Colon MD - 09/09/2021 [...] signed by Yuri PATRICK: CELINA Report ID: [id number] Reading Location: [id number] IMPRESSION: 1. Acute, nondisplaced, comminuted, intra-articular patellar fracture with transverse and longitudinal/sagittal components. Associated large knee joint effusion, suspected to be, at least in part, hemarthrosis. 2. Moderate to marked underlying tricompartmental osteoarthritis. us Magalys Buckner Frantz COSMETICS AND TOILETRIES SALESPERSON, PARKING MANAGER IMG DIAGNOSTIC ORDERA BLES Final Result * XR ANKLE 3 OR MORE VIEWS LEFT (09/09/2021 10:47 AM CDT) Anatomical Region Laterality Modality LOWER EXTREMITY, ankle Left Digital R adiography 09/09/2021 11:1 5 AM CDT Impressions 09/09/2021 11:18 AM CDT IMPRESSION: ?? No acute osseous abnormality. ?? Hqsd-xc-rdiruiej degenerative changes as above. Narrative 09/09/2021 11:18 [...] ?Ankle mortise alignment is preserved. ??There is saag-tz-xczezdtu degenerative change. ??Midfoot degeneration is also seen, more pronounced distally. ??There is a small plantar calcaneal spur. SOFT TISSUES: ?? There is no significant ankle effusion. OTHER: ?? No other significant finding. THIS IS AN ELECTRONICALLY VERIFIED FINAL REPORT 09/09/2021 11:15 AM - Electronically signed by ??Yuri Colon M.D. BC: CELINA D: ??09/09/2021 11:15 AM T: ??09/09/2021 11:15 AM Report ID: [id number] Reading Location: ??[id number] Procedure Note Yuri Colon MD - 09/09/2021 [...] Ankle mortise alignment is preserved. There is zqll-vy-adjqwhty degenerative change. Midfoot degeneration is also seen, more pronounced distally. There is a small plantar calcaneal spur. SOFT TISSUES: There is no significant ankle effusion. OTHER: No other significant finding. THIS IS AN ELECTRONICALLY VERIFIED FINAL REPORT 09/09/2021 11:15 AM - Electronically signed by Yuri Colon M.D. BC: CELINA Report ID: [id number] Reading Location: [id number] IMPRESSION: No acute osseous abnormality. Tyrt-cg-wcxzlqnr degenerative changes as above. Magalys Landry APRN, PARKING MANAGER IMG DIAGNOSTIC ORDERA BLES Final Result documented in this encounter Visit Diagnoses Diagnosis Patellar fracture- Primary Closed fracture of patella documented in this encounter Additional Health Concerns Assessment Noted Time PHQ-9 Depression Total Score: 0 06/18/19 21 3:00 PM DIGITAL STRATEGY SPECIALIST documented as of this encounter Care Teams Brand Planner Relationship Specialty Start Date End Date Tim Altman MD [address] [place] [address] PCP - General Internal Medicine 12/03/15 documented as of this encounter
--- OUTSIDE RECORDS SUMMARY | 2024-06-22 21:58 | XMS_ITS | Encounter Summary ---
Author Organization [facility] Address [address] [place] [address] Phone Care Team Providers Care Auto Rental Clerk Name Role Phone Tim Altman MD Primary Care Provider Reason for Visit * Reason Comments Medication Refill Encounter Details Date Type Department Care Team (Late st Contact Info) Description 10/18/2021 Refill [facility] - [place] [address] [place] [address] Tim Altman MD [address] [place] [address] Medication Refill Social History Tobacco [...] Dept 06/20/21 Office Visit [facility] [place] 03/12/21 Office Visit Tim Altman MD [facility] [place] 12/18/20 Office Visit Tim Altman MD [facility] [place] Showing recent visits within past 365 days and meeting all other requirements Future Appointments Date Type Provider Dept 12/20/21 Appointment Tim [facility] MD [facility] [place] Showing future appointments within next 90 days and meeting all other requirements documented in this encounter Plan of Treatment Upcoming Encounters Date Type Department Care Team (Late st Contact Info) Description 06/30/2024 10:00 AM TRAINMAN Physical Therapy [facility] at [facility] [address] [place] [address] Raul Young MD [address] [place] [address] Brandi Coffey, PT [place] Discharge Disposition: Discharged to home or Selfcare 08/31/2024 9:30 AM CDT Office Visit [facility] - Internal Medicine - [place] [address] [place] [address] Tim Altman MD [address] [place] [address] documented as of this encounter Visit Diagnoses Not on filedocumented in this encounter Additional Health Concerns Assessment Noted Time PHQ-9 Depression Total Score: 0 06/18/19 21 3:00 PM TRAINMAN documented as of this encounter Care Teams Auto Rental Clerk Relationship Specialty Start Date End Date Tim Altman MD [address] [place] [address] PCP - General Internal Medicine 12/03/15 documented as of this encounter
--- OUTSIDE RECORDS SUMMARY | 2024-06-22 21:58 | XMS_ITS | Encounter Summary ---
Author Organization [facility] Care Team Providers Care Pot Operator Name Role Phone Tim Altman MD [...] st Contact Info) Description 06/30/2024 10:00 AM MEAT CUTTING TEACHER Physical Therapy [facility] at [facility] [address] [place] [address] Raul Young MD [address] [place] [address] Brandi Coffey, PT [place] Discharge Disposition: Discharged to home or Selfcare 08/31/2024 9:30 AM CDT [facility] Visit [facility] [address] [place] [address] Tim Altman MD [address] [place] [address] documented as of this encounter Visit Diagnoses Not on filedocumented in this encounter Additional Health Concerns Infection Onset Date Last Indicated Resolved Time COVID - 19 Confirmed 01/03/2022 01/03/2022 022 12:16 AM CDT Assessment Noted Time PHQ-9 Depression Total Score: 0 06/18/19 21 3:00 PM MEAT CUTTING TEACHER documented as of this encounter Care Teams Pot Operator Relationship Specialty Start Date End Date Tim Altman MD [address] [place] [address] PCP - General Internal Medicine 12/03/15 documented as of this encounter
--- OUTSIDE RECORDS SUMMARY | 2024-06-22 21:58 | XMS_ITS | Encounter Summary ---
Author Organization [facility] Address [address] [place] [address] Phone Care Team Providers Care Acute Dialysis Registered Nurse Name Role Phone Tim Altman MD Primary Care Provider Reason for Visit * Reason Onset Date Comments COVID-19 01/03/2022 Encounter Details Date Type Department Care Team (Late st Contact Info) Description 01/03/2022 Nurse Triage [facility] [address] [place] [address] Tim Altman MD [address] [place] [address] COVID-19 Social History Tobacco Use Types [...] and orders received for Paxlovid. 24 hour [facility] in [place] called with order and patient will roll picker in the morning. POC notified of [...] symptoms.) Protocols used: CORONAVIRUS (COVID-19) DIAGNOSED OR [id number] documented in this encounter Plan of Treatment Upcoming Encounters Date Type Department Care Team (Late st Contact Info) Description 06/30/2024 10:00 AM PRESS SERVICE READER Physical [facility] [address] [place] [address] Raul Young MD [address] [place] [address] Brandi Coffey, PT [place] Discharge Disposition: Discharged to home or Selfcare 08/31/2024 9:30 AM CDT Office Visit [facility] Medical [facility] - Internal Medicine [facility] [address] [place] [address] Tim Altman MD [address] [place] [address] documented as of this encounter Visit Diagnoses Not on filedocumented in this encounter Additional Health Concerns Infection Onset Date Last Indicated Resolved Time COVID - 19 Confirmed 01/03/2022 01/03/2022 022 12:16 AM CDT Assessment Noted Time PHQ-9 Depression Total Score: 0 06/18/19 21 3:00 PM PRESS SERVICE READER documented as of this encounter Care Teams Acute Dialysis Registered Nurse Relationship Specialty Start Date End Date Tim Altman MD [address] [place] [address] PCP - General Internal Medicine 12/03/15 documented as of this encounter
--- OUTSIDE RECORDS SUMMARY | 2024-06-22 21:58 | XMS_ITS | Encounter Summary ---
Author Organization [facility] Address [address] [place] [address] Phone Care Team Providers Care Curriculum Developer Name Role Phone Tim Altman MD Primary Care Provider Sanaz Mendoza RN Unavailable Unavailable Reason for Visit * Reason Comments Medication Refill Encounter Details Date Type Department Care Team (Late st Contact Info) Description 08/19/2022 Refill [facility] - [place] [address] [facility] [place] [address] Tim Altman MD [address] [facility] [place] [address] Medication Refill Social History Tobacco [...] st Contact Info) Description 06/30/2024 10:00 AM CORDWOOD CUTTER HELPER [facility] [address] [place] [address] Raul Young MD [address] [place] [address] Brandi Coffey, PT [place] Discharge Disposition: Discharged to home or Selfcare 08/31/2024 9:30 AM CDT Office Visit [facility] Medical Group - Internal Medicine - [place] [address] [place] [address] Tim Altman MD [address] [facility] [place] [address] documented as of this encounter Visit Diagnoses Not on filedocumented in this encounter Additional Health Concerns Assessment Noted Time PHQ-9 Depression Total Score: 0 06/18/19 21 3:00 PM CORDWOOD CUTTER HELPER documented as of this encounter Care Teams Curriculum Developer Relationship Specialty Start Date End Date Tim Altman MD [address] [place] [address] PCP - General Internal Medicine 12/03/15 Sanaz Mendoza, RN [place] Nurse Tipping Machine Operator Automatic 03/09/24 03/09/24 documented as of this encounter
--- OUTSIDE RECORDS SUMMARY | 2024-06-22 21:58 | XMS_ITS | Encounter Summary ---
Author Organization [facility] Address [address] [place] [address] Phone Care Team Providers Care Supervisor Clam Bed Name Role Phone Tim Altman MD Primary Care Provider [phone] Reason for Visit * Reason Comments Hypertension Encounter Details Date Type Department Care Team (Late st Contact Info) Description 12/30/2021 10:00 AM CDT Telemedicine [facility] - [place] [address] [facility] [place] [address] Tim Altman MD [address] [place] [address] Essential hypertension, benign (Primary Dx); [...] GROUP - INTERNAL MEDICINE [address] [place] [address] PHONE: [phone] FAX: [phone] 12/30/2021 NAME: Lexi Mcneil, : 1955, Assessment [...] multiple sites (HCC) Comments: Continue follow-up with news correspondent Other orders - fluticasone (FLONASE) 50 MCG/ACT Suspension; 1 [place] by Nasal route in the morning and [...] palpitation. Tolerating medications well. Being followed by orchid worker for her rheumatoid arthritis. ROS Review of [...] st Contact Info) Description 06/30/2024 10:00 AM NUCLEAR CONTROL ROOM OPERATOR [facility] [address] [place] [address] Raul Young MD [address] [place] [address] Brandi Coffey, PT [place] Discharge Disposition: Discharged to home or Selfcare 08/31/2024 9:30 AM CDT Office Visit [facility] Medical Group - Internal Medicine - [place] [address] [place] [address] Tim Altman MD [address] [place] [address] documented as of this encounter Visit Diagnoses Diagnosis Essential hypertension, benign- Primary Other hyperlipidemia GERD without esophagitis Esophageal reflux Allergic rhinitis due to other allergic trigger, unspecified seasonality Other specified rheumatoid arthritis, multiple sites (HCC) documented in this encounter Additional Health Concerns Assessment Noted Time PHQ-9 Depression Total Score: 0 06/18/19 21 3:00 PM NUCLEAR CONTROL ROOM OPERATOR documented as of this encounter Care Teams Supervisor Clam Bed Relationship Specialty Start Date End Date Tim Altman MD [address] [place] [address] PCP - General Internal Medicine 12/03/15 documented as of this encounter
--- OUTSIDE RECORDS SUMMARY | 2024-06-22 21:58 | XMS_ITS | Encounter Summary ---
Author Organization [facility] Address [address] [place] [address] Phone Care Team Providers Care Investor Name Role Phone Tim Altman MD Primary Care Provider Reason for Visit * Reason Comments High Blood Pressure 6 mo f/u Form Completion Encounter Details Date Type Department Care Team (Late st Contact Info) Description 06/20/2021 3:45 PM CREAM MAKER Office Visit [facility] - [place] [address] [place] [address] Tim Altman MD [address] [place] [address] Essential hypertension, benign (Primary Dx); [...] COVID-19? No / Unsure 06/20/2021 3:26 PM CREAM MAKER documented as of this encounter Last Filed Vital Signs Vital Sign Reading Time Taken Comments Blood Pressure 112/66 06/20/2021 3:38 PM CREAM MAKER Pulse 84 06/20/2021 3:38 PM CREAM MAKER Temperature 36.4 ??C (97.6 ??F) 06/20/2021 3:38 PM CS T Respiratory Rate - - Oxygen Saturation 99% 06/20/2021 3:38 PM CREAM MAKER Inhaled Oxygen Concentration - - Weight 89.4 kg (197 lb) 06/20/2021 3:38 PM CREAM MAKER Height 162.6 cm (5' 4 ) 06/20/2021 3:38 PM CREAM MAKER Body Mass Index 33.81 06/20/2021 3:38 PM CREAM MAKER documented in this encounter Progress Notes * [...] the patient today: Colonoscopy, Smoking and Depression M MAKER * Tim Altman MD - 06/20/2021 3:45 PM CST PROGRESS NOTE [facility] [place] [address] PHONE: [phone] FAX: [phone] 06/20/2021 NAME: Lexi Mcneil, : 1955, Assessment ASSESSMENT & PLAN: Return in about 6 months (around 12/18/2021) for htn. Diagnoses and all orders for this visit: Essential hypertension, benign Comments: Stable. Continue current medication Other specified rheumatoid arthritis, multiple sites (HCC) Comments: Continue follow-up with business control manager Other hyperlipidemia Comments: Continue low-cholesterol diet GERD [...] well except generalized arthralgia. Being followed by business control manager for rheumatoid arthritis. Requesting handicap parking permit [...] content errors may have occurred. By: Tim Atlman MD 06/20/2021 4:25 PM CREAM MAKER M MAKER documented in this encounter Plan of Treatment Upcoming Encounters Date Type Department Care Team (Late st Contact Info) Description 06/30/2024 10:00 AM CREAM MAKER [facility] [address] [place] [address] Raul Young MD [address] [place] [address] Brandi Coffey, PT [place] Discharge Disposition: Discharged to home or Selfcare 08/31/2024 9:30 AM CDT Office Visit [facility] - Internal Medicine - [place] [address] [place] [phone] Tim Altman MD [address] [place] [address] documented as of this encounter Visit Diagnoses [...] Total Score: 0 06/18/19 21 3:00 PM CREAM MAKER documented as of this encounter Care Teams Investor Relationship Specialty Start Date End Date Tim Altman MD [address] [place] [address] PCP - General Internal Medicine 12/03/15 documented as of this encounter
--- OUTSIDE RECORDS SUMMARY | 2024-06-22 21:58 | XMS_ITS | Encounter Summary ---
Author Organization [facility] Address [address] [place] [address] Phone Care Team Providers Care Family Consultant Name Role Phone Tim Altman MD Primary Care Provider Reason for Visit * Reason Onset Date Comments Results 03/18/2022 Encounter Details Date Type Department Care Team (Late st Contact Info) Description 03/18/2022 Telephone [facility] - [place] [address] [place] [address] Tim Altman MD [address] [place] [address] Results Social History Tobacco Use [...] white cell count was high. Phone - [phone] documented in this encounter Plan of Treatment Upcoming Encounters Date Type Department Care Team (Late st Contact Info) Description 06/30/2024 10:00 AM COMPUTER SCIENTIST Physical Therapy [facility] at [facility] [address] [place] [address] Raul Young MD [address] [place] [address] Brandi Coffey, PT [place] Discharge Disposition: Discharged to home or Selfcare 08/31/2024 9:30 AM CDT [facility] - [place] [address] [place] [address] Tim Altman MD [address] [place] [address] documented as of this encounter Visit Diagnoses Not on filedocumented in this encounter Additional Health Concerns Assessment Noted Time PHQ-9 Depression Total Score: 0 06/18/19 21 3:00 PM COMPUTER SCIENTIST documented as of this encounter Care Teams Family Consultant Relationship Specialty Start Date End Date Tim Altman MD [address] [place] [address] PCP - General Internal Medicine 12/03/15 documented as of this encounter
--- OUTSIDE RECORDS SUMMARY | 2024-06-22 21:58 | XMS_ITS | Encounter Summary ---
Author Organization [facility] Address [address] [place] [address] Phone Care Team Providers Care Merchandise Planning Manager Name Role Phone Tim Altman MD Primary Care Provider [phone]- [phone] Reason for Visit * Reason Comments Medication Refill Encounter Details Date Type Department Care Team (Late st Contact Info) Description 04/08/2022 Refill [facility] - Internal Medicine - [place] [address] [place] [address] Tim Altman MD [address] [place] [address] Medication Refill Social History Tobacco [...] Dept 01/14/22 Office Visit Tim Altman MD [facility] [place] 12/30/21 Telemedicine Tim Altman MD [facility] [place] 06/20/21 Office Visit Tim Altman MD [facility] Showing recent visits within past 365 days and meeting all other requirements Future Appointments No visits were found meeting these conditions. Showing future appointments within next 90 days and meeting all other requirements documented in this encounter Plan of Treatment Upcoming Encounters Date Type Department Care Team (Late st Contact Info) Description 06/30/2024 10:00 AM JEWELRY MAKER Physical Therapy [facility] at [facility] [address] [facility] [place] [address] Raul Young MD [address] [place] [address] Brandi Coffey, PT [place] Discharge Disposition: Discharged to home or Selfcare 08/31/2024 9:30 AM CDT Office Visit [facility] - Internal Medicine - [place] [address] [place] [place] [address] Tim Altman MD [address] [place] [address] documented as of this encounter Visit Diagnoses Not on filedocumented in this encounter Additional Health Concerns Assessment Noted Time PHQ-9 Depression Total Score: 0 06/18/19 21 3:00 PM JEWELRY MAKER documented as of this encounter Care Teams Merchandise Planning Manager Relationship Specialty Start Date End Date Tim Altman MD [address] [place] [address] PCP - General Internal Medicine 12/03/15 documented as of this encounter
--- OUTSIDE RECORDS SUMMARY | 2024-06-22 21:58 | XMS_ITS | Encounter Summary ---
Author Organization [facility] Address [address] [place] [address] Phone Care Team Providers Care Outpatient Admitting Clerk Name Role Phone Tim Altman MD Primary Care Provider [phone] Reason for Visit * Reason Comments Medication Refill Encounter Details Date Type Department Care Team (Late st Contact Info) Description 05/29/2022 Refill [facility] - Internal Medicine - [place] [address] [place] [address] Tim Altman MD [address] [place] [address] Medication Refill Social History Tobacco [...] Berenice Davis RN - 05/29/2022 11:19 AM JAVA SECURITY ARCHITECT Medication(s) refilled and signed per [facility] [place] [...] 01/14/22 Office Visit Tim Altman MD [facility] 12/30/21 Telemedicine Tim Altmna MD [facility] 06/20/21 Office Visit [facility] [place] Showing recent visits within past 365 days and meeting all other requirements Future Appointments Date Type Provider Dept 07/09/22 Appointment Tim Altman MD [facility] Showing future appointments within next 90 days and meeting all other requirements SECURITY ARCHITECT documented in this encounter Plan of Treatment Upcoming Encounters Date Type Department Care Team (Late st Contact Info) Description 06/30/2024 10:00 AM JAVA SECURITY ARCHITECT Physical Therapy [facility] Re[facility] at [facility] [address] [place] [address] Raul Young MD [address] [place] [address] Brandi Coffey, PT [place] Discharge Disposition: Discharged to home or Selfcare 08/31/2024 9:30 AM CDT Office Visit [facility] - Internal Medicine - [place] [address] [place] [address] Tim Altman MD [address] [place] [address] documented as of this encounter Visit Diagnoses Not on filedocumented in this encounter Additional Health Concerns Assessment Noted Time PHQ-9 Depression Total Score: 0 06/18/19 21 3:00 PM JAVA SECURITY ARCHITECT documented as of this encounter Care Teams Outpatient Admitting Clerk Relationship Specialty Start Date End Date Tim Altman MD [address] [place] [address] PCP - General Internal Medicine 12/03/15 documented as of this encounter
--- OUTSIDE RECORDS SUMMARY | 2024-06-22 21:59 | XMS_ITS | Encounter Summary ---
Author Organization [facility] Address [address] [place] [address] Phone Care Team Providers Care Disease Control Inspector Name Role Phone Tim Altman MD Primary Care Provider Reason for Visit * Reason Comments Pain left elbow Encounter Details Date Type Department Care Team (Late st Contact Info) Description 05/22/2020 1:30 PM ENGAGEMENT MGR [facility] Visit [facility] - [facility] - [place] [address] [place] [address] Tim Altman MD [address] [place] [address] Cellulitis of left elbow (Primary [...] COVID-19? No / Unsure 05/22/2020 11:19 AM ENGAGEMENT MGR documented as of this encounter Last Filed Vital Signs Vital Sign Reading Time Taken Comments Blood Pressure 118/64 05/22/2020 1:23 PM ENGAGEMENT MGR Pulse 100 05/22/2020 1:23 PM ENGAGEMENT MGR Temperature 36.2 ??C (97.2 ??F) 05/22/2020 1:23 PM CS T Respiratory Rate - - Oxygen Saturation - - Inhaled Oxygen Concentration - - Weight 93.9 kg (207 lb) 05/22/2020 1:23 PM ENGAGEMENT MGR Height 162.6 cm (5' 4 ) 05/22/2020 1:23 PM ENGAGEMENT MGR Body Mass Index 35.53 05/22/2020 1:23 PM ENGAGEMENT MGR documented in this encounter Progress Notes * Doris Babb, SALES REPRESENTATIVE ELECTRIC SERVICE - 05/22/2020 1:30 PM CST Lexi Jose [...] the patient today: Flu, Smoking and Depression GEMENT MGR * Tim Altman MD - 05/22/2020 1:30 PM CST PROGRESS NOTE [facility] - INTERNAL MEDICINE [address] [place] [address] 05/22/2020 Lexi Mcneil 1955 Chief Complaint Patient [...] By: Tim Altman MD 05/22/2020 1:44 PM ENGAGEMENT MGR GEMENT MGR documented in this encounter Plan of Treatment Upcoming Encounters Date Type Department Care Team (Late st Contact Info) Description 06/30/2024 10:00 AM ENGAGEMENT MGR Physical Therapy [facility] [address] [place] [address] Raul Young MD [address] [place] [address] Brandi Coffey, PT [place] Discharge Disposition: Discharged to home or Selfcare 08/31/2024 9:30 AM CDT [facility] - [place] [address] [place] [address] Tim Altman MD [address] [place] [address] documented as of this encounter Visit Diagnoses Diagnosis Cellulitis of left elbow- Primary documented in this encounter Additional Health Concerns Assessment Noted Time PHQ-9 Depression Total Score: 0 05/22/20 20 1:00 PM ENGAGEMENT MGR documented as of this encounter Care Teams Disease Control Inspector Relationship Specialty Start Date End Date Tim Altman MD [address] [place] [address] PCP - General Internal Medicine 12/03/15 documented as of this encounter
--- OUTSIDE RECORDS SUMMARY | 2024-06-22 21:59 | XMS_ITS | Encounter Summary ---
Author Organization [facility] Address [address] [place] [address] Phone Care Team Providers Care Front Desk Admin Name Role Phone Tim Altman MD Primary Care Provider Reason for Visit * Reason Comments Medication Refill Encounter Details Date Type Department Care Team (Late st Contact Info) Description 06/13/2020 Refill [facility] - [place] [address] [place] [address] Tim Altman MD [address] [place] [address] Medication Refill Social History Tobacco [...] COVID-19? No / Unsure 05/22/2020 11:19 AM MATH TUTOR documented as of this encounter Miscellaneous Notes * Telephone Encounter - Berenice Davis RN - 06/13/2020 9:36 AM CST Please review and sign. TUTOR documented in this encounter Plan of Treatment Upcoming Encounters Date Type Department Care Team (Late st Contact Info) Description 06/30/2024 10:00 AM MATH TUTOR [facility] [address] [place] [address] Raul Young MD [address] [place] [address] Brandi Coffey, PT [place] Discharge Disposition: Discharged to home or Selfcare 08/31/2024 9:30 AM CDT Office Visit [facility] - Internal Medicine [place] [address] [place] [address] Tim Altman MD [address] [place] [address] documented as of this encounter Visit Diagnoses Not on filedocumented in this encounter Additional Health Concerns Assessment Noted Time PHQ-9 Depression Total Score: 0 05/22/20 20 1:00 PM MATH TUTOR documented as of this encounter Care Teams Front Desk Admin Relationship Specialty Start Date End Date Tim Altman MD [address] [place] [address] PCP - General Internal Medicine 12/03/15 documented as of this encounter
--- OUTSIDE RECORDS SUMMARY | 2024-06-22 21:59 | XMS_ITS | Encounter Summary ---
Author Organization [facility] Address [address] [place] [address] Phone Care Team Providers Care Board Worker Name Role Phone Tim Altman MD Primary Care Provider [phone] Reason for Visit * Reason Comments Hypertension 6 mth f/u Encounter Details Date Type Department Care Team (Late st Contact Info) Description 12/18/2020 3:45 PM CDT Office Visit [facility] - Internal Medicine - [place] [address] [place] [address] Tim Altman MD [address] [place] [address] Essential hypertension, benign (Primary Dx); [...] 3:45 PM CDT S S PROGRESS NOTE [facility] - INTERNAL MEDICINE [address] [place] [address] PHONE: [phone] FAX: [phone] 12/18/2020 NAME: Lexi Mcneil, : 1955, Assessment ASSESSMENT & PLAN: Return in about 6 months (around 06/20/2021) for htn. Diagnoses and all orders for this visit: Essential hypertension, benign Comments: Stable. Continue current medication GERD without esophagitis Comments: Stable. Continue current medication Other hyperlipidemia Comments: Continue low-cholesterol diet. Other specified rheumatoid arthritis, multiple sites (HCC) Comments: Continue follow-up with drug safety assistant Reflex sympathetic dystrophy of left lower extremity Comments: Stable. Continue to monitor. Follow-up in 6 months, sooner if needed. Chief Complaint Patient presents with ??? Hypertension 6 mth f/u HPI Patient is here for follow-up for hypertension other medical problems. Patient is feeling well except pain in the left foot and generalized arthralgia. Being followed by drug safety assistant for RA . Tolerating medications well. ROS [...] st Contact Info) Description 06/30/2024 10:00 AM ENGINEERING INSTRUCTOR Physical Therapy [facility] [address] [place] [address] Raul Young MD [address] [place] [address] Brandi Coffey, PT [place] Discharge Disposition: Discharged to home or Selfcare 08/31/2024 9:30 AM CDT Office Visit [facility] - [place] [address] [place] [address] Tim Altman MD [address] [place] [address] documented as of this encounter Visit Diagnoses Diagnosis Essential hypertension, benign- Primary GERD without esophagitis Esophageal reflux Other hyperlipidemia Other specified rheumatoid arthritis, multiple sites (HCC) Reflex sympathetic dystrophy of left lower extremity Reflex sympathetic dystrophy of the lower limb documented in this encounter Additional Health Concerns Assessment Noted Time PHQ-9 Depression Total Score: 0 06/18/19 21 3:00 PM ENGINEERING INSTRUCTOR documented as of this encounter Care Teams Board Worker Relationship Specialty Start Date End Date Tim Altman MD [address] [place] [address] PCP - General Internal Medicine 12/03/15 documented as of this encounter
--- OUTSIDE RECORDS SUMMARY | 2024-06-22 21:59 | XMS_ITS | Encounter Summary ---
Author Organization [facility] Address [address] [place] [address] Phone Care Team Providers Care Combat Engineer Name Role Phone Tim Altman MD Primary Care Provider [phone] Reason for Referral * Radiology Services (Routine) - Closed Specialty Diagnoses / Procedures Referred By Dariela nettles Referred To Contact Radiology Diagnoses Screening for osteoporosis Menopause Procedures YULIET BONE DENSITOMETRY AXIAL SKELETON Marilyn Campos, LISA, MERCHANDISE DELIVERER Phone: tel: fax: Referral ID Status Reason Start Date Expiration Date Visits Re quested Visits Authorized [id number] Closed 11/29/2020 1 1 Encounter Details Date Type Department Care Team (Late st Contact Info) Description 11/29/2020 Transcribe Orders [facility] Scheduling [address] [place] [id number] Marilyn Campos APRN, MERCHANDISE DELIVERER [address] [place] [address] [address] MATILDE Mendenhall [address] [address] Screening for osteoporosis (Primary Dx); [...] st Contact Info) Description 06/30/2024 10:00 AM KITCHEN AIDE [facility] [address] [place] [address] Raul Young MD [address] [place] [address] Brandi Coffey, PT [place] Discharge Disposition: Discharged to home or Selfcare 08/31/2024 9:30 AM CDT Office Visit [facility] - Internal Medicine - [place] [address] [place] [address] Tim Altman MD [address] [place] [address] documented as of this encounter Results * [...] old ??F with given history of screening. Geotechnical Engineering Technician/Model: ?? Nex[employer]e (S/N [id number]) CLINICAL INFORMATION: ??Current height: ??65 inches ? [...] PM T: ??12/18/2020 12:15 PM Report ID: [id number] Reading Location: ??[id number] Procedure Note Reinaldo Silvestre MD - 12/18/2020 EXAM DESCRIPTION: YULIET BONE DENSITOMETRY AXIAL SKELETON REASON FOR STUDY: 65 y/o year old F with given history of screening. Geotechnical Engineering Technician/Model: Nex[employer]e (S/N [id number]) CLINICAL INFORMATION: Current height: 65 inches Maximum [...] Reinaldo Silvestre M.D. AG: YADIRA Report ID: [id number] Reading Location: [id number] IMPRESSION: Low bone mass. Fracture risk assessment [...] Treatment of Osteoporosis (http://www.nof.org/professionals/clinical-guidelines) us Marilyn Campos ROUTE DELIVERY SERVICE DRIVER, MERCHANDISE DELIVERER IMG DEXA ORDERABLES Final Result documented in this encounter Visit Diagnoses Diagnosis Screening for osteoporosis- Primary Special screening for osteoporosis Menopause Symptomatic menopausal or female climacteric states Screening for osteoporosis Special screening for osteoporosis Menopause Symptomatic menopausal or female climacteric states documented in this encounter Additional Health Concerns Assessment Noted Time PHQ-9 Depression Total Score: 0 06/18/19 21 3:00 PM KITCHEN AIDE documented as of this encounter Care Teams Combat Engineer Relationship Specialty Start Date End Date Tim Altman MD [address] [place] [address] PCP - General Internal Medicine 12/03/15 documented as of this encounter
--- OUTSIDE RECORDS SUMMARY | 2024-06-22 21:59 | XMS_ITS | Encounter Summary ---
Author Organization [facility] Address [address] [place] [address] Phone Care Team Providers Care Senior Windows Administrator Name Role Phone Tim Altman MD Primary Care Provider Reason for Referral * Radiology Services (Routine) - Closed Specialty Diagnoses / Procedures Referred By Contac t Referred To Contact Radiology Diagnoses Screening for osteoporosis Menopause Procedures YULIET BONE DENSITOMETRY AXIAL SKELETON Marilyn Campos, LISA, DIRECTOR EXTERNAL COMMUNICATIONS Phone: tel: fax: Referral ID Status Reason Start Date Expiration Date Visits Re quested Visits Authorized [id number] Closed 11/29/2020 1 1 Electronically signed by Marilyn Campos, SCARF AND ANNEAL OPERATOR, DIRECTOR EXTERNAL COMMUNICATIONS at 12/18/2020 9:31 AM CDT Reason for Visit * Radiology Services (Routine) - Closed Specialty Diagnoses / Procedures Referred By Contac t Referred To Contact Radiology Diagnoses Screening for osteoporosis Menopause Procedures YULIET BONE DENSITOMETRY AXIAL SKELETON Marilyn Campos, LISA, DIRECTOR EXTERNAL COMMUNICATIONS Phone: tel: fax: Referral ID Status Reason Start Date Expiration Date Visits Re quested Visits Authorized [id number] Closed 11/29/2020 1 1 Encounter Details Date Type Department Care Team (Latest Contact Info) Description 12/18/2020 9:30 AM CDT - 12/18/2020 11:59 PM CDT Hospital Encounter [facility] Mammography [address] [place] [address] Marilyn Campos M, EXTRACTOR MACHINE OPERATOR, DIRECTOR EXTERNAL COMMUNICATIONS [address] [facility] [facility] [address] [place] [address] Discharge Disposition: Discharged to home or Selfcare [...] st Contact Info) Description 06/30/2024 10:00 AM INTERNET MERCHANT Physical Therapy [facility] at [facility] [address] [place] [address] Raul Young MD [address] [place] [address] Brandi Coffey, PT [place] Discharge Disposition: Discharged to home or Selfcare 08/31/2024 9:30 AM CDT Office Visit [facility] - [place] [address] [facility] [place] [address] Tim Altman MD [address] [place] [address] documented as of this encounter Procedures Procedure Name Priority Date/Time Associated Diagnosis Comments [facility] BONE DENSITOMETRY AXIAL SKELETON Routine 12/18/2020 10:10 AM CDT Screening for osteoporosis Menopause documented in this encounter Results * [facility] BONE DENSITOMETRY AXIAL SKELETON (12/18/2020 10:10 [...] old ??F with given history of screening. Hot Mill Roller/Model: ?? ExSafe (S/N [id number]) CLINICAL INFORMATION: ??Current height: ??65 inches ? [...] PM T: ??12/18/2020 12:15 PM Report ID: [id number] Reading Location: ??[id number] Procedure Note Reinaldo Silvestre MD - 12/18/2020 EXAM DESCRIPTION: YULIET BONE DENSITOMETRY AXIAL SKELETON REASON FOR STUDY: 65 y/o year old F with given history of screening. Hot Mill Roller/Model: ExSafe (S/N [id number]) CLINICAL INFORMATION: Current height: 65 inches Maximum [...] Reinaldo Silvestre M.D. AG: AG Report ID: [id number] Reading Location: [place] [address] IMPRESSION: Low bone mass. Fracture risk assessment [...] Treatment of Osteoporosis (http://www.nof.org/professionals/clinical-guidelines) us Marilyn Campos EXTRACTOR MACHINE OPERATOR, DIRECTOR EXTERNAL COMMUNICATIONS IMG DEXA ORDERABLES Final Result documented in this encounter Visit Diagnoses Diagnosis Screening for osteoporosis Special screening for osteoporosis Menopause Symptomatic menopausal or female climacteric states documented in this encounter Additional Health Concerns Assessment Noted Time PHQ-9 Depression Total Score: 0 06/18/19 21 3:00 PM INTERNET MERCHANT documented as of this encounter Care Teams Senior Windows Administrator Relationship Specialty Start Date End Date Tim Altman MD [address] [place] [address] PCP - General Internal Medicine 12/03/15 documented as of this encounter
--- OUTSIDE RECORDS SUMMARY | 2024-06-22 21:59 | XMS_ITS ---
Author Organization [facility] Address [address] [place] [address] Phone Care Team Providers Care Returned Telephone Equipment Appraiser Name Role Phone Tim Altman MD Primary Care Provider Ambulatory Complex Care Management Status:Closed (Closed) Start date:03/09/2024 Enrollment reason:Identified as high-risk End date:03/09/2024 Close reason:Not eligible Related social drivers of health:Social Connections, Tobacco Use, Physical Activity Overview Complex Care Management Program Continued Care and Services Coordination
--- OUTSIDE RECORDS SUMMARY | 2024-06-22 21:59 | XMS_ITS | Encounter Summary ---
Author Organization [facility] Care Team Providers Care Kidney Puller Name Role Phone Tim Altman MD Primary [...] COVID-19? No / Unsure 06/18/2020 3:36 PM ASSISTANT STORE MANAGER TRAINEE documented as of this encounter Plan of Treatment Upcoming Encounters Date Type Department Care Team (Late st Contact Info) Description 06/30/2024 10:00 AM ASSISTANT STORE MANAGER TRAINEE Physical Therapy [facility] Rehab at [facility] [address] [place] [address] Raul Young MD [address] [place] [address] Brandi Coffey, PT [place] Discharge Disposition: Discharged to home or Selfcare 08/31/2024 9:30 AM CDT [facility] - [place] [address] [place] [address] Tim Altman MD [address] [place] [address] documented as of this encounter Visit Diagnoses Not on filedocumented in this encounter Additional Health Concerns Assessment Noted Time PHQ-9 Depression Total Score: 0 06/18/19 21 3:00 PM ASSISTANT STORE MANAGER TRAINEE documented as of this encounter Care Teams Kidney Puller Relationship Specialty Start Date End Date Tim Altman MD [address] [place] [address] PCP - General Internal Medicine 12/03/15 documented as of this encounter
--- OUTSIDE RECORDS SUMMARY | 2024-06-22 21:59 | XMS_ITS | Encounter Summary ---
Author Organization [facility] Address [address] [place] [address] Phone Care Team Providers Care Merchandise Marker Name Role Phone Tim Altman MD Primary Care Provider Reason for Visit * Reason Onset Date Comments Medication Refill 02/07/2020 Encounter Details Date Type Department Care Team (Late st Contact Info) Description 02/07/2020 Refill [facility] - [place] [address] [place] [address] Tim Altman MD [address] [facility] [place] [address] Medication Refill Social History Tobacco [...] st Contact Info) Description 06/30/2024 10:00 AM DIVISION MANAGER [facility] [address] [place] [address] Raul Young MD [address] [place] [address] Brandi Coffey, PT [place] Discharge Disposition: Discharged to home or Selfcare 08/31/2024 9:30 AM CDT Office Visit [facility] - Internal Medicine - [place] [address] [place] [address] Tim Altman MD [address] [place] [address] documented as of this encounter Visit Diagnoses Not on filedocumented in this encounter Care Teams Merchandise Marker Relationship Specialty Start Date End Date Tim Altman MD [address] [place] [address] PCP - General Internal Medicine 12/03/15 documented as of this encounter
--- OUTSIDE RECORDS SUMMARY | 2024-06-22 21:59 | XMS_ITS | Encounter Summary ---
Author Organization [facility] Address [address] [place] [address] Phone Care Team Providers Care Election Watcher Name Role Phone Tim Altman MD Primary Care Provider Reason for Visit * Reason Comments Medication Refill Encounter Details Date Type Department Care Team (Late st Contact Info) Description 03/07/2020 Refill [facility] - Internal Medicine - [place] [address] [place] [phone] Tim Altman MD [address] [place] [address] Medication Refill Social [...] Contact Info) Description 06/30/2024 10:00 AM CREAM HAULER [facility] [address] [place] [address] Raul Young MD [address] [place] [address] Brandi Coffey, PT [place] Discharge Disposition: Discharged to home or Selfcare 08/31/2024 9:30 AM CDT Office Visit [facility] Internal Medicine - [place] [address] [place] [address] Tim Altman MD [address] [place] [address] documented as of this encounter Visit Diagnoses Not on filedocumented in this encounter Care Teams Election Watcher Relationship Specialty Start Date End Date Tim Altman MD [address] [place] [address] PCP - General Internal Medicine 12/03/15 documented as of this encounter
--- OUTSIDE RECORDS SUMMARY | 2024-06-22 21:59 | XMS_ITS | Encounter Summary ---
Author Organization [facility] Care Team Providers Care Inside Tester Name Role Phone Tim Altman MD Primary Care Provider [phone] Encounter Details Date Type Department Care Team [...] COVID-19? No / Unsure 05/22/2020 11:19 AM METER MECHANIC documented as of this encounter Plan of Treatment Upcoming Encounters Date Type Department Care Team (Late st Contact Info) Description 06/30/2024 10:00 AM METER MECHANIC [facility] [address] [place] [address] Raul Young MD [address] [place] [address] Brandi Coffey, PT [place] Discharge Disposition: Discharged to home or Selfcare 08/31/2024 9:30 AM CDT Office Visit [facility] - Internal Medicine - [place] [address] [place] [address] Tim Altman MD [address] [place] [place] [address] documented as of this encounter Visit Diagnoses Not on filedocumented in this encounter Additional Health Concerns Assessment Noted Time PHQ-9 Depression Total Score: 0 05/22/20 20 1:00 PM METER MECHANIC documented as of this encounter Care Teams Inside Tester Relationship Specialty Start Date End Date Tim Altman MD [address] [place] [address] PCP - General Internal Medicine 12/03/15 documented as of this encounter
--- OUTSIDE RECORDS SUMMARY | 2024-06-22 21:59 | XMS_ITS | Encounter Summary ---
Author Organization [facility] Address [address] [place] [address] Phone Care Team Providers Care Retail Marketing Coordinator Name Role Phone Tim Altman MD Primary Care Provider Reason for Visit * Reason Comments Medication Refill Encounter Details Date Type Department Care Team (Late st Contact Info) Description 07/07/2020 Refill [facility] - [place] [address] [place] [address] Tim Altman MD [address] [place] [address] Medication Refill Social History Tobacco [...] COVID-19? No / Unsure 06/18/2020 3:36 PM LINOTYPIST documented as of this encounter Miscellaneous Notes * Telephone Encounter - Berenice Davis RN - 07/09/2020 8:11 AM CST Please review and sign. TYPIST documented in this encounter Plan of Treatment Upcoming Encounters Date Type Department Care Team (Late st Contact Info) Description 06/30/2024 10:00 AM LINOTYPIST [facility] [address] [place] [address] Raul Young MD [address] [place], [place] [id number] Brandi Coffey, PT [place] Discharge Disposition: Discharged to home or Selfcare 08/31/2024 9:30 AM CDT Office Visit [facility] [address] [place] [id number] Tim Altman MD [address] [place] [address] documented as of this encounter Visit Diagnoses Not on filedocumented in this encounter Additional Health Concerns Assessment Noted Time PHQ-9 Depression Total Score: 0 06/18/19 21 3:00 PM LINOTYPIST documented as of this encounter Care Teams Retail Marketing Coordinator Relationship Specialty Start Date End Date Tim Altman MD [address] [place] [address] PCP - General Internal Medicine 12/03/15 documented as of this encounter
--- OUTSIDE RECORDS SUMMARY | 2024-06-22 21:59 | XMS_ITS | Encounter Summary ---
Author Organization [facility] Address [address] [place] [address] Phone Care Team Providers Care Color Tester Name Role Phone Tim Altman MD Primary Care Provider Reason for Visit * Reason Comments Medication Refill Encounter Details Date Type Department Care Team (Late st Contact Info) Description 11/13/2020 Refill [facility] - [place] [address] [place] [address] Tim Altman MD [address] [place] [address] Medication Refill Social History Tobacco [...] Contact Info) Description 06/30/2024 10:00 AM CLIENT RELATIONSHIP CONSULTANT [facility] [address] [place] [address] Raul Young MD [address] [place] [address] Brandi Coffey, PT [place] Discharge Disposition: Discharged to home or Selfcare 08/31/2024 9:30 AM CDT Office Visit [facility] [place] [address] [place] [id number] Tim Altman MD [address] [place] [id number] documented as of this encounter Visit Diagnoses Not on filedocumented in this encounter Additional Health Concerns Assessment Noted Time PHQ-9 Depression Total Score: 0 06/18/19 21 3:00 PM CLIENT RELATIONSHIP CONSULTANT documented as of this encounter Care Teams Color Tester Relationship Specialty Start Date End Date Tim Altman MD [address] [place] [id number] PCP - General Internal Medicine 12/03/15 documented as of this encounter
--- OUTSIDE RECORDS SUMMARY | 2024-06-22 21:59 | XMS_ITS | Encounter Summary ---
Author Organization [facility] Address [address] [place] [address] Phone Care Team Providers Care Mate Relief Name Role Phone Tim Altman MD Primary Care Provider Reason for Visit * Reason Comments Medication Refill Encounter Details Date Type Department Care Team (Late st Contact Info) Description 09/10/2020 Refill [facility] - [place] [address] [place] [address] Tim Altman MD [address] [place] [address] Medication Refill Social History Tobacco [...] st Contact Info) Description 06/30/2024 10:00 AM RIB MATCHER AND FITTER [facility] [address] [place] [address] Raul Young MD [address] [place] [address] Brandi Coffey, PT [place] Discharge Disposition: Discharged to home or Selfcare 08/31/2024 9:30 AM CDT Office Visit [facility] - [place] [address] [place] [phone] Tim Altman MD [address] [place] [address] documented as of this encounter Visit Diagnoses Not on filedocumented in this encounter Additional Health Concerns Assessment Noted Time PHQ-9 Depression Total Score: 0 06/18/19 21 3:00 PM RIB MATCHER AND FITTER documented as of this encounter Care Teams Mate Relief Relationship Specialty Start Date End Date Tim Altman MD [address] [place] [address] PCP - General Internal Medicine 12/03/15 documented as of this encounter
--- OUTSIDE RECORDS SUMMARY | 2024-06-22 21:59 | XMS_ITS | Encounter Summary ---
Author Organization [facility] Address [address] [place] [address] Phone Care Team Providers Care Product Safety Professional Name Role Phone Tim Altman MD Primary Care Provider Reason for Visit * Reason Comments Follow-up 6 mo f/u Encounter Details Date Type Department Care Team (Late st Contact Info) Description 06/18/2020 3:45 PM CLAIMS SUPPORT SPECIALIST Office Visit [facility] - [place] [address] [place] [address] Tim Altman MD [address] [place] [address] Essential hypertension, benign (Primary Dx); [...] COVID-19? No / Unsure 06/18/2020 3:36 PM CLAIMS SUPPORT SPECIALIST documented as of this encounter Last Filed Vital Signs Vital Sign Reading Time Taken Comments Blood Pressure 124/64 06/18/2020 3:48 PM CLAIMS SUPPORT SPECIALIST Pulse 72 06/18/2020 3:48 PM CLAIMS SUPPORT SPECIALIST Temperature 36.2 ??C (97.2 ??F) 06/18/2020 3:48 PM CS T Respiratory Rate - - Oxygen Saturation - - Inhaled Oxygen Concentration - - Weight 93 kg (205 lb) 06/18/2020 3:48 PM CLAIMS SUPPORT SPECIALIST Height 162.6 cm (5' 4 ) 06/18/2020 3:48 PM CLAIMS SUPPORT SPECIALIST Body Mass Index 35.19 06/18/2020 3:48 PM CLAIMS SUPPORT SPECIALIST documented in this encounter Progress Notes * Doris Babb, MANAGER COMPLIANCE - 06/18/2020 3:45 PM CST Lexi Mcneil, [...] with the patient today: Smoking and Depression MS SUPPORT SPECIALIST * Tim Altman MD - 06/18/2020 3:45 PM CST [facility] [address] [place] [address] Dept: [phone] Dept Loc: [phone] Loc Patient: Lexi Mcneil : 1955 Sex: [...] to continue current medications. Continue follow-up with trailer steerer. Start doxycycline 100 mg b.i.d. for 10 [...] fever chills or rigors. Being followed by trailer steerer for RA. Denies any chest pain, palpitation, [...] area. Left elbow joint movement is normal. MS SUPPORT SPECIALIST documented in this encounter Plan of Treatment Upcoming Encounters Date Type Department Care Team (Late st Contact Info) Description 06/30/2024 10:00 AM CLAIMS SUPPORT SPECIALIST Physical Therapy [facility] at [facility] [address] [place] [address] Raul Young MD [address] [place] [address] Brandi Coffey, PT [place] Discharge Disposition: Discharged to home or Selfcare 08/31/2024 9:30 AM CDT Office Visit [facility] - Internal Medicine - [place] [address] [place] [address] Tim Altman MD [address] [place] [address] documented as of this encounter Visit Diagnoses [...] Total Score: 0 06/18/19 21 3:00 PM CLAIMS SUPPORT SPECIALIST documented as of this encounter Care Teams Product Safety Professional Relationship Specialty Start Date End Date Tim Altman MD [address] [place] [address] PCP - General Internal Medicine 12/03/15 documented as of this encounter
--- OUTSIDE RECORDS SUMMARY | 2024-06-22 21:59 | XMS_ITS | Encounter Summary ---
Author Organization [facility] Address [address] [place] [address] Phone Care Team Providers Care Assignment Agent Name Role Phone Tim Altman MD Primary Care Provider Encounter Details Date Type Department Care Team (Late st Contact Info) Description 04/30/2020 Telephone [facility] - [place] [address] [place] [address] Tim Altman MD [address] [place] [address] Social History Tobacco Use Types [...] Tim Altman MD - 04/30/2020 4:33 PM QA SOFTWARE TEST ENGINEER Doxycycline 100 mg twice a day for 10 days prescription sent SOFTWARE TEST ENGINEER * Telephone Encounter - Berenice Davis RN - 04/30/2020 4:02 PM CST Patient came into office with and was complaining of her elbow hurting. Upon examination itwas noted that elbow was warm and painful it appears to have a yellow color in the center as if a bite or scratch. Patient wants to know if she could possibly get an antibiotic SOFTWARE TEST ENGINEER documented in this encounter Plan of Treatment Upcoming Encounters Date Type Department Care Team (Late st Contact Info) Description 06/30/2024 10:00 AM QA SOFTWARE TEST ENGINEER [facility] [address] [place] [address] Raul Young MD [address] [place] [address] Brandi Coffey, PT [place] Discharge Disposition: Discharged to home or Selfcare 08/31/2024 9:30 AM CDT Office Visit [facility] - [place] [address] [place] [address] Tim Altman MD [address] [place] [address] documented as of this encounter Visit Diagnoses Not on filedocumented in this encounter Care Teams Assignment Agent Relationship Specialty Start Date End Date Tim Altman MD [address] [place] [address] PCP - General Internal Medicine 12/03/15 documented as of this encounter
--- OUTSIDE RECORDS SUMMARY | 2024-06-22 22:03 | XMS_ITS | Encounter Summary ---
Author Organization [facility] Address [address] [place] [address] Care Team Providers Care Adult Services Librarian Name Role Phone Tim Altman MD Primary Care Provider +1- [phone] Encounter Details Date Type Department Care Team (Late st Contact Info) Description 01/07/2017 Orders Only [facility] [address] [place] [address] Scanning, Provider Social History Tobacco Use Types Packs/Day Years Used Date Smoking Tobacco: Never Smokeless Tobacco: Never Alcohol Use Standard Drinks/Week Comments No 0 (1 standard drink = 0.6 oz pur e alcohol) PHQ-2 Answer Date Recorded PHQ-2 Score 0 02/03/2019 Comments No Sex and Gender Information Value Date Recorded Sex Assigned at Not on file Legal Sex Female 6:27 PM RADIO OFFICER Gender Identity Not on file Sexual Orientation [...] on filedocumented in this encounter Care Teams Adult Services Librarian Relationship Specialty Start Date End Date Tim Altman MD [address] [place] [address] PCP - General 04/03/11 documented as of this encounter
--- OUTSIDE RECORDS SUMMARY | 2024-06-22 22:03 | XMS_ITS | Encounter Summary ---
Author Organization [facility] Address [address] [place] [address] Care Team Providers Care Systems Administration Analyst Name Role Phone Tim Altman MD Primary Care Provider +1- [phone] Encounter Details Date Type Department Care Team (Late st Contact Info) Description 04/24/2021 Orders Only [facility] [address] [place] [address] Mavis Alvarado MA Screening for [...] on file Legal Sex Female 6:27 PM CO TEACHER Gender Identity Not on file Sexual Orientation Not on file documented as of this encounter Plan of Treatment Not on file documented as of this encounter Procedures Procedure Name Priority Date/Time Associated Diagnosis Comments STOOL DNA ? COLOGUARD Routine 05/20/2021 6:25 AM CO TEACHER Screening for colon cancer documented in this encounter Results * Stool DNA - Cologuard (05/20/2021 6:25 AM CO TEACHER) Stool DNA - Cologuard Negative Negative [facility] (CLIA #:[id number]) Comment: NEGATIVE TEST RESULT. A negative Cologuard [...] cancer. ??Following a negative Cologuard result, the [place] Cancer Society and U.S. Multi-Society Task Force screening guidelines recommend a Cologuard re-screening interval of 3 years. References: [place] [employer] Guideline for Colorectal Cancer Screening: https://www.cancer.org/cancer/wnstf-ntpmtz-gklmmu/rqdpjqhda-lshlqofhc-viuzeoo/ac s-rec ommendations.html.; Uriah DK, Karina HARTMANN, Kamlesh VillalpandoK, Colorectal Cancer Screening: Recommendations for Physicians and Patients from the U.S. Multi-Society Task Force on Colorectal Cancer Screening , Am J Gastroenterology 2017; 112:8374-1305. TEST DESCRIPTION: Composite algorithmic analysis of stool [...] Box et al, N Engl J Med 2014;370(14):5140-9419.) Cologuard may produce a false negative or false positive result (no colorectal cancer or precancerous polyp present at colonoscopy follow up). A negative Cologuard test result does not guarantee the absence of CRC or advanced adenoma (pre-cancer). The current Cologuard screening interval is every 3 years. ([place] Cancer Society and U.S. Multi-Society Task Force). Cologuard performance data in a 10,000 patient pivotal study using colonoscopy as the reference method can be accessed at the following location: www.[employer]/results. Additional description of the Cologuard test process, warnings and precautions can be found at www.[employer].com. Stool 05/20/2021 6:25 AM CO TEACHER 05/21/2021 12:01 PM CO TEACHER Marilyn Campos AUTOMOBILE RADIO REPAIRER LAB BODY FLUIDS AND STOOL S ORDERABLES Final Result [facility] (CLIA #:[id number]) [place] [address] documented in this encounter Visit Diagnoses Diagnosis Screening for colon cancer- Primary Special screening for malignant neoplasms, colon documented in this encounter Care Teams Systems Administration Analyst Relationship Specialty Start Date End Date Tim Altman MD [address] [place] [address] PCP - General 04/03/11 documented as of this encounter
--- OUTSIDE RECORDS SUMMARY | 2024-06-22 22:03 | XMS_ITS | Encounter Summary ---
Author Organization [facility] Healthcare Address [address] [place] [address] Care Team Providers Care Concrete Pump Operator Name Role Phone Unavailable Primary Care Provider Unavailabl e Encounter Details Date Type Department Care Team (Late st Contact Info) Description 07/16/2010 12:01 AM ASSEMBLER BONDING - 07/16/2010 4:18 PM ASSEMBLER BONDING Hospital Encounter [facility] Lynda Bhakta MD Encounter for other physical therapy; Aftercare following other surgery of nervous system Social History Tobacco Use Types Packs/Day Years Used Date Smoking Tobacco: Never Assessed Comments Unknown Sex and Gender Information Value Date Recorded Sex Assigned at Not on file Legal Sex Female 6:27 PM ASSEMBLER BONDING Gender Identity Not on file Sexual Orientation Not on file documented as of this encounter Plan of Treatment Not on file documented as of this encounter Visit Diagnoses Diagnosis Encounter for other physical therapy Aftercare following other surgery of nervous system documented in this encounter
--- OUTSIDE RECORDS SUMMARY | 2024-06-22 22:03 | XMS_ITS | Encounter Summary ---
Author Organization [facility] Address [address] [place] [address] Care Team Providers Care Oil Winterizer Name Role Phone Tim Altman MD Primary Care Provider +1- [phone] Reason for Referral * Diagnostic Imaging (Routine) - Closed Specialty Diagnoses / Procedures Referred By Controssana t Referred To Contact Procedures MAMMOGRAPHY Marilyn Campos NP Phone: tel: fax: Referral ID Status Reason Start Date Expiration Date Visits Re quested Visits Authorized [id number] Closed 01/05/2019 07/16/2020 1 1 Encounter Details Date Type Department Care Team (Late st Contact Info) Description 01/05/2019 Orders Only [facility] [address] [facility] [address] [place] [address] Marilyn Campos NP [address] [place] [address] [address] [place] [address] Social History Tobacco Use Types Packs/Day Years Used Date Smoking Tobacco: Never Smokeless Tobacco: Never Alcohol Use Standard Drinks/Week Comments No 0 (1 standard drink = 0.6 oz pur e alcohol) Comments No Sex and Gender Information Value Date Recorded Sex Assigned at Not on file Legal Sex Female 6:27 PM JOB COACH Gender Identity Not on file Sexual Orientation Not on file documented as of this encounter Plan of Treatment Not on file documented as of this encounter Procedures Procedure Name Priority Date/Time Associated Diagnosis Comments MAMMOGRAPHY Schedule Routine, Read Routine (OP Routine) 12/30/2018 documented in this encounter Results * MAMMOGRAPHY (12/30/2018) Anatomical Region Laterality Modality Breast Mammography Marilyn Campos DENTAL EQUIPMENT MECHANIC IMG MAMMO PROCEDURES Bety l Result documented in this encounter Visit Diagnoses Not on filedocumented in this encounter Care Teams Oil Winterizer Relationship Specialty Start Date End Date Tim Altman MD [address] [place] [address] PCP - General 04/03/11 documented as of this encounter
--- OUTSIDE RECORDS SUMMARY | 2024-06-22 22:03 | XMS_ITS | Encounter Summary ---
Author Organization [facility] Medical [facility] Address [address] [place] [address] Care Team Providers Care Optical Glass Inspector Name Role Phone Tim Altman MD Primary Care Provider +1- [phone] Reason for Visit * Reason Onset Date Comments Request For Order(s) 06/29/2020 Encounter Details Date Type Department Care Team (Late st Contact Info) Description 06/29/2020 Telephone [facility] [address] [place] [address] Mavis Alvarado MA Request For [...] on file Legal Sex Female 6:27 PM WAREHOUSE TRAFFIC SUPERVISOR Gender Identity Not on file Sexual Orientation Not on file documented as of this encounter Miscellaneous Notes * Telephone Encounter - Mavis Alvarado MA - 06/29/2020 2:09 PM WAREHOUSE TRAFFIC SUPERVISOR Pt called today requesting mamm order mailed to her. She wants to go to [facility]. HOUSE TRAFFIC SUPERVISOR documented in this encounter Plan of Treatment Not on file documented as of this encounter Visit Diagnoses Diagnosis Encounter for screening mammogram for malignant neoplasm of breast- Primary documented in this encounter Care Teams Optical Glass Inspector Relationship Specialty Start Date End Date Tim Altman MD [address] [place] [address] PCP - General 04/03/11 documented as of this encounter
--- OUTSIDE RECORDS SUMMARY | 2024-06-22 22:03 | XMS_ITS | Encounter Summary ---
Author Organization [facility] Healthcare Address [address] [place] [address] Care Team Providers Care Supervisor Paper Machine Name Role Phone Unavailable Primary Care Provider Unavailabl e Encounter Details Date Type Department Care Team (Late st Contact Info) Description 05/22/2010 12:01 AM RX SPECIALIST - 06/14/2010 11:59 PM RX SPECIALIST Hospital Encounter [facility] Lynda Bhakta MD Encounter for other physical therapy; Aftercare following other surgery of nervous system Social History Tobacco Use Types Packs/Day Years Used Date Smoking Tobacco: Never Assessed Comments Unknown Sex and Gender Information Value Date Recorded Sex Assigned at Not on file Legal Sex Female 6:27 PM RX SPECIALIST Gender Identity Not on file Sexual Orientation Not on file documented as of this encounter Plan of Treatment Not on file documented as of this encounter Visit Diagnoses Diagnosis Encounter for other physical therapy Aftercare following other surgery of nervous system documented in this encounter
--- OUTSIDE RECORDS SUMMARY | 2024-06-22 22:03 | XMS_ITS | Encounter Summary ---
Author Organization [facility] Healthcare Address [address] [place] [address] Care Team Providers Care Methodologist Name Role Phone Tim Altman MD Primary Care Provider +1- [phone] Encounter Details Date Type Department Care Team (Latest Contact Info) Description 11/07/2016 3:21 PM CDT - 11/19/2016 11:59 PM CDT Hospital Encounter [facility] OP INTERIM Casper Smith MD [address] [address] Discharge Disposition: Discharge to home or self care Social History Tobacco Use Types Packs/Day Years Used Date Smoking Tobacco: Never Alcohol Use Standard Drinks/Week Comments No 0 (1 standard drink = 0.6 oz pur e alcohol) Comments Unknown Sex and Gender Information Value Date Recorded Sex Assigned at Not on file Legal Sex Female 6:27 PM BARGE LOADER Gender Identity Not on file Sexual Orientation [...] on filedocumented in this encounter Care Teams Methodologist Relationship Specialty Start Date End Date Tim Altman MD [address] [place] [address] PCP - General 04/03/11 documented as of this encounter
--- OUTSIDE RECORDS SUMMARY | 2024-06-22 22:03 | XMS_ITS | Encounter Summary ---
Author Organization [facility] Care Team Providers Care Customs Director Name Role Phone Tim lAtman MD Primary Care Provider +1- [phone] Encounter Details Date Type Department Care Team [...] on file Legal Sex Female 6:27 PM CAN PATCHER Gender Identity Not on file Sexual Orientation Not on file documented as of this encounter Plan of Treatment Not on file documented as of this encounter Visit Diagnoses Not on filedocumented in this encounter Care Teams Customs Director Relationship Specialty Start Date End Date Tim Altman MD [address] [place] [address] PCP - General 04/03/11 documented as of this encounter
--- OUTSIDE RECORDS SUMMARY | 2024-06-22 22:03 | XMS_ITS | Encounter Summary ---
Author Organization [facility] Medical [facility] Address [address] [place] [address] Care Team Providers Care Ice Grinder Name Role Phone Tim Altman MD Primary Care Provider +1- [phone] Reason for Referral * Diagnostic Imaging (Routine) - Closed Specialty Diagnoses / Procedures Referred By Dariela nettles Referred To Contact Diagnoses Abnormal mammogram Procedures US Breast Complete left Marilyn Campos NP Phone: tel: fax: External Order Referral ID Status Reason Start Date Expiration Date Visits Re quested Visits Authorized [id number] Closed 12/18/2017 06/29/2019 1 1 * Diagnostic Imaging (Routine) - Closed Specialty Diagnoses / Procedures Referred By Dariela nettles Referred To Contact Diagnoses Abnormal mammogram Procedures DIAGNOSTIC MAMMOGRAM LEFT W RAFAEL Marilyn Campos NP Phone: tel: fax: External Order Referral ID Status Reason Start Date Expiration Date Visits Re quested Visits Authorized [id number] Closed 12/18/2017 06/29/2019 1 1 Reason for Visit * Reason Onset Date Comments Test Results 12/18/2017 Mamm BIRADS 0 Encounter Details Date Type Department Care Team (Late st Contact Info) Description 12/18/2017 Telephone [facility] [address] [facility] [address] [place] [address] Mavis Alvarado MA Test Results (Mamm BIRADS 0) Social History Tobacco Use Types Packs/Day Years Used Date Smoking Tobacco: Never Smokeless Tobacco: Never Alcohol Use Standard Drinks/Week Comments No 0 (1 standard drink = 0.6 oz pur e alcohol) Comments No Sex and Gender Information Value Date Recorded Sex Assigned at Not on file 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 * Telephone Encounter - Mavis Alvarado MA - 12/18/2017 9:25 AM CDT Order for additional testing [facility]. Mamm and us of left breast order. Faxed. Shyla from [facility] will contact pt. To schedule appt. [...] unspecified documented in this encounter Care Teams Ice Grinder Relationship Specialty Start Date End Date Tim Altman MD [address] [place] [address] PCP - General 04/03/11 documented as of this encounter
--- OUTSIDE RECORDS SUMMARY | 2024-06-22 22:03 | XMS_ITS | Encounter Summary ---
Author Organization [facility] Medical Group Address [address] [place] [address] Care Team Providers Care Process Manufacturing Engineer Name Role Phone Tim Altman MD Primary Care Provider +1- [phone] Reason for Referral * Diagnostic Imaging (Routine) - Closed Specialty Diagnoses / Procedures Referred By Dariela t Referred To Contact Procedures MAMMOGRAPHY Marilyn Campos NP Phone: tel: fax: Referral ID Status Reason Start Date Expiration Date Visits Re quested Visits Authorized [id number] Closed 07/23/2020 08/22/2021 1 1 IN DUMPER Encounter Details Date Type Department Care Team (Late st Contact Info) Description 07/23/2020 Orders Only [facility] [address] [facility] [address] [place] [address] Marilyn Campos NP [address] [place] [address] [address] [facility] [address] [place] [address] Social History Tobacco Use Types Packs/Day Years Used Date Smoking Tobacco: Never Smokeless Tobacco: Never Alcohol Use Standard Drinks/Week Comments No 0 (1 standard drink = 0.6 oz pur e alcohol) PHQ-2 Answer Date Recorded PHQ-2 Score 0 02/03/2019 Comments No Sex and Gender Information Value Date Recorded Sex Assigned at Not on file 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 Sex Female 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 Gender Identity Not on file Sexual Orientation Not on file documented as of this encounter Plan of Treatment Not on file documented as of this encounter Procedures Procedure Name Priority Date/Time Associated Diagnosis Comments MAMMOGRAPHY Schedule Routine, Read Routine (OP Routine) 07/17/2020 documented in this encounter Results * MAMMOGRAPHY (07/17/2020) Anatomical Region Laterality Modality Breast Mammography us Marilyn Campos SPORTS DEVELOPMENT OFFICER IMG MAMMO PROCEDURES Bety l Result documented in this encounter Visit Diagnoses Not on filedocumented in this encounter Care Teams Process Manufacturing Engineer Relationship Specialty Start Date End Date Tim Altman MD [address] [place] [address] PCP - General 04/03/11 documented as of this encounter
--- OUTSIDE RECORDS SUMMARY | 2024-06-22 22:03 | XMS_ITS | Referral Summary ---
Author Organization [facility] Address [address] [place] [address] Care Team Providers Care Electrician Telephone Name Role Phone Tim Altman MD Primary Care Provider +1- [phone] Encounters Date Type Department Care Team Description 05/25/2024 12:58 PM INSULATION INSPECTOR - 05/25/2024 11:59 PM INSULATION INSPECTOR Hospital Encounter [facility] [address] [facility] [address], [place] [address] Gregory Roman MD Lumbar radiculopathy Discharge Disposition: Discharge to home or self care 05/06/2024 3:04 PM INSULATION INSPECTOR - 05/06/2024 11:59 PM INSULATION INSPECTOR Hospital Encounter [facility] 2 [facility], [place] [address] Gregory Roman MD Lumbar radiculopathy (Primary Dx); [...] on file Legal Sex Female 6:27 PM INSULATION INSPECTOR Gender Identity Not on file Sexual Orientation Not on file Last Filed Vital Signs Vital Sign Reading Time Taken Comments Blood Pressure 128/74 05/25/2024 1:56 PM INSULATION INSPECTOR Pulse 101 05/25/2024 1:56 PM INSULATION INSPECTOR Temperature 36.4 ??C (97.5 ??F) 05/25/2024 1:06 PM CS T Respiratory Rate 18 05/25/2024 1:56 PM INSULATION INSPECTOR Oxygen Saturation 96% 05/25/2024 1:56 PM INSULATION INSPECTOR Inhaled Oxygen Concentration - - Weight 92.2 [...] Read Routine (OP Routine) 05/25/2024 1:54 PM INSULATION INSPECTOR Lumbar radiculopathy STOOL DNA ? COLOGUARD Routine 05/20/2021 6:25 AM INSULATION INSPECTOR Screening for colon cancer DEXA AXIAL SKELETON BONE DENSITY 1 OR MORE SITES Schedule Routine, Read Routine (OP Routine) 12/18/2020 MAMMOGRAPHY Schedule Routine, Read Routine (OP Routine) 07/17/2020 from Last 3 Months or Most Recently Relevant to Health Maintenance Results * Imaging Lumbar/Sacral Selective Nerve Root INJ (TFE) Left (99521) (05/25/2024 1:54 PM INSULATION INSPECTOR) Narrative [facility] - 05/25/2024 1:55 PM INSULATION INSPECTOR The images from this study are not interpreted by Radiology. ??Please refer to the physician's procedure / OR operative note. us Gregory Roman MD IMG PAIN MGMT PROCEDURE S Final Result [facility] * Stool DNA - Cologuard (05/20/2021 6:25 AM INSULATION INSPECTOR) Stool DNA - Cologuard Negative Negative [employer] (CLIA #:[id number]) Comment: NEGATIVE TEST RESULT. A negative Cologuard [...] Cancer Society Guideline for Colorectal Cancer Screening: https://www.cancer.org/cancer/svmtz-txahxf-mwrjoj/ijxsmblbx-nfxgnhuuk-jqmqydn/ac s-rec ommendations.html.; Uriah DK, Karina CR, Kamlesh VillalpandoK, Colorectal Cancer Screening: Recommendations for Physicians and Patients from the U.S. Multi-Society Task Force on Colorectal Cancer Screening , Am J Gastroenterology 2017; 112:9046-5820. TEST DESCRIPTION: Composite algorithmic analysis of stool [...] Box et al, N Engl J Med 2014;370(14):4880-2414.) Cologuard may produce a false negative or [...] can be accessed at the following location: www.[employer]/results. Additional description of the Cologuard test process, warnings and precautions can be found at www.cologuard.com. Stool 05/20/2021 6:25 AM INSULATION INSPECTOR 05/21/2021 12:01 PM INSULATION INSPECTOR us Marilyn Campos COUTURE DRESSMAKER LAB BODY FLUIDS AND STOOL S ORDERABLES Final Result [employer] (CLIA #:[id number]) [place] [address] * Dexa Axial Skeleton Bone Density 1 or 2 Site (12/18/2020) Anatomical Region Laterality Modality Body N/A Radiographic Irma ging Marilyn Campos COUTURE DRESSMAKER IMG DXA PROCEDURES Final Result * MAMMOGRAPHY (07/17/2020) Anatomical Region Laterality Modality Breast Mammography Marilyn Campos COUTURE DRESSMAKER IMG MAMMO PROCEDURES Bety l Result from Last 3 Months or Most Recently Relevant to Health Maintenance Insurance [facility] [place] MEDICARE [facility] Member Subscriber Plan / Payer (Ef fective 2020-) Name:Lexi Mcneil Relation to Subscriber:Self Name:Lexi Mcneil Payer ID:[id number] Group ID:Not on file Type:eSpark Address: [id number] [place] [phone] MEDICARE [facility] Member Subscriber Plan / Payer (Ef fective 2023-) Name:Lexi Mcneil Jose Ramon Relation to Subscriber:Self Name:Lexi Mcneil Jose Ramno Payer ID:[id number] Group ID:Not on file Type:COMMERCIAL Address: [facility] [address] [place] [phone] Care Teams Electrician Telephone Relationship Specialty Start Date End Date Tim Almtan MD [address] [place] [address] [facility] - General 04/03/11
--- OUTSIDE RECORDS SUMMARY | 2024-06-22 22:03 | XMS_ITS | Encounter Summary ---
Author Organization [facility] Address [address] [place] [address] Care Team Providers Care Malware Analyst Name Role Phone Tim Altman MD Primary Care Provider +1- [phone] Encounter Details Date Type Department Care Team (Late st Contact Info) Description 03/17/2011 10:30 AM CDT - 03/17/2011 11:59 PM CDT Hospital [place] [address] [address] Encounter for other physical therapy; Effusion of lower leg joint Social History Tobacco Use Types Packs/Day Years Used Date Smoking Tobacco: Never Alcohol Use Standard Drinks/Week Comments No 0 (1 standard drink = 0.6 oz pur e alcohol) Comments Unknown Sex and Gender Information Value Date Recorded Sex Assigned at Not on file 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
--- OUTSIDE RECORDS SUMMARY | 2024-06-22 22:03 | XMS_ITS | Encounter Summary ---
Author Organization [facility] Medical [facility] Address [address] [facility] [address] [facility] [address] [place] [address] Care Team Providers Care Hazardous Materials Handler Name Role Phone Tim Altman MD Primary Care Provider +1- [phone] Reason for Referral * Diagnostic Imaging (Routine) - Closed Specialty Diagnoses / Procedures Referred By Contac t Referred To Contact Procedures Dexa Axial Skeleton Bone Density 1 or 2 Site Marilyn Campos NP [address] [facility] [address] [place] [address] Phone: tel: fax: [facility] Referral ID Status Reason Start Date Expiration Date Visits Re quested Visits Authorized [id number] Closed 12/21/2020 01/20/2022 1 1 Encounter Details Date Type Department Care Team (Late st Contact Info) Description 12/21/2020 Orders Only [facility] 4 [facility] [address] [place] [address] Marilyn Campos NP [address] [facility] [address] [place] [address] Social History Tobacco Use Types Packs/Day Years Used Date Smoking Tobacco: Never Smokeless Tobacco: Never Alcohol Use Standard Drinks/Week Comments No 0 (1 standard drink = 0.6 oz pur e alcohol) PHQ-2 Answer Date Recorded PHQ-2 Score 0 02/03/2019 Comments No Sex and Gender Information Value Date Recorded Sex Assigned at Not on file 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
--- OUTSIDE RECORDS SUMMARY | 2024-06-22 22:03 | XMS_ITS | Encounter Summary ---
Author Organization [facility] Medical [facility] Address [address] [place] [address] Care Team Providers Care Call Center Assistant Name Role Phone Tim Altman MD Primary Care Provider +1- [phone] Reason for Referral * Diagnostic Imaging (Routine) - Closed Specialty Diagnoses / Procedures Referred By Dariela nettles Referred To Contact Diagnoses Breast cancer screening by mammogram Procedures SCREENING MAMMOGRAM BILATERAL W Marilyn Soria NP [address] [facility] [address] [address] Phone: tel: fax: External Order Referral ID Status Reason Start Date Expiration Date Visits Re quested Visits Authorized [id number] Closed 04/15/2021 05/15/2022 1 1 Reason for Visit * Reason Comments Annual Exam * Diagnostic Imaging (Routine) - Closed Specialty Diagnoses / Procedures Referred By Dariela nettles Referred To Contact Diagnoses Breast cancer screening by mammogram Procedures SCREENING MAMMOGRAM BILATERAL W Marilyn Soria NP [address] [facility] [address] [address] Phone: tel: fax: External Order Referral ID Status Reason Start Date Expiration Date Visits Re quested Visits Authorized [id number] Closed 04/15/2021 05/15/2022 1 1 Encounter Details Date Type Department Care Team (Late st Contact Info) Description 04/15/2021 9:00 AM CDT Office Visit [facility] [address] [place] [address] Marilyn Campos NP [address] [place] [address] [address] [facility] [address] [place] [address] Well woman exam (Primary Dx); Breast cancer [...] on file 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 Attends [employer]: Not on file ??? Active Member [...] exam (Primary) Comments: Defer pap; enc dietary rdhznur=5608av/day; wt bearing exercise 3-4x/week; Vit d 2,000 [...] swab 04/15/2021 9:20 AM CDT Marilyn Campos ENGRAVER OPTICAL FRAMES POINT OF CARE TEST ORDERA BLES Final [...] 05/06/2024 added in this encounter Care Teams Call Center Assistant Relationship Specialty Start Date End Date Tim Altman MD [address] [place] [address] PCP - General 04/03/11 documented as of this encounter
--- OUTSIDE RECORDS SUMMARY | 2024-06-22 22:03 | XMS_ITS | Encounter Summary ---
Author Organization [facility] Address [address] [facility] [address] [place] [address] Care Team Providers Care Floor Cashier Name Role Phone Tim Altman MD Primary Care Provider +1- [phone] Reason for Referral * Diagnostic Imaging (Routine) - Closed Specialty Diagnoses / Procedures Referred By Contac t Referred To Contact Procedures Dexa Axial Skeleton Bone Density 1 or 2 Site Marilyn Campos NP [address] [facility] [address] [place] [address] Phone: tel: fax: 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
--- OUTSIDE RECORDS SUMMARY | 2024-06-22 22:03 | XMS_ITS | Encounter Summary ---
Author Organization [facility] Medical [facility] Address [address] [facility] [address] [place] [address] Care Team Providers Care Car Usher Name Role Phone Tim Altman MD Primary Care Provider +1- [phone] Reason for Visit * Reason Onset Date Comments Test Results 01/18/2018 Encounter Details Date Type Department Care Team (Late st Contact Info) Description 01/18/2018 Telephone [facility] [address] [facility] [address] [place] [address] Mavis Alvarado MA Test Results Social History Tobacco Use Types Packs/Day Years Used Date Smoking Tobacco: Never Smokeless Tobacco: Never Alcohol Use Standard Drinks/Week Comments No 0 (1 standard drink = 0.6 oz pur e alcohol) Comments No Sex and Gender Information Value Date Recorded Sex Assigned at Not on file 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
--- OUTSIDE RECORDS SUMMARY | 2024-06-22 22:03 | XMS_ITS | Encounter Summary ---
Author Organization [facility] Medical Group Address [address] [facility] [address] [place] [address] Care Team Providers Care Hosiery Mater Name Role Phone Tim Altman MD Primary Care Provider +1- [phone] Reason for Visit * Reason Comments Gynecologic Exam Encounter Details Date Type Department Care Team (Late st Contact Info) Description 12/30/2018 8:00 AM CDT Office Visit [facility] [address] [facility] [address] [place] [address] Marilyn Campos, KARTHIK [facility] [address] [place] [address] Well woman exam (Primary Dx); Screen for colon cancer Social History Tobacco Use Types Packs/Day Years Used Date Smoking Tobacco: Never Smokeless Tobacco: Never Alcohol Use Standard Drinks/Week Comments No 0 (1 standard drink = 0.6 oz pur e alcohol) Comments No Sex and Gender Information Value Date Recorded Sex Assigned at Not on file 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 dietary pggudvt=3074hk/day/ Vit D 2,000 IUs/day; wt bearing exercise [...] Rectum 12/30/2018 9:03 AM CDT Marilyn Campos POLE FRAME CONSTRUCTION WORKER POINT OF CARE TEST ORDERA BLES Final [...] 12/30/2018 added in this encounter Care Teams Hosiery Mater Relationship Specialty Start Date End Date Tim Altman MD [address] [place] [address] PCP - General 04/03/11 documented as of this encounter
--- OUTSIDE RECORDS SUMMARY | 2024-06-22 22:03 | XMS_ITS | Encounter Summary ---
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 Order entered in [employer] and faxed. Pt has upcoming appt. documented in this encounter Plan of Treatment Not on file documented as of this encounter Visit Diagnoses Diagnosis Screening for osteoporosis- Primary Special screening for osteoporosis Asymptomatic menopausal state documented in this encounter Care Teams Optometric Assistant Relationship Specialty Start Date End Date Tim Altman MD [address] [place] [address] PCP - General 04/03/11 documented as of this encounter
--- OUTSIDE RECORDS SUMMARY | 2024-06-22 22:03 | XMS_ITS | Encounter Summary ---
Author Organization [facility] Healthcare Address [address] [place] [address] Care Team Providers Care Law Researcher Name Role Phone Tim Altman MD Primary Care Provider +1- [phone] Reason for Referral * Diagnostic Imaging (Routine) - Closed Specialty Diagnoses / Procedures Referred By Contac t Referred To Contact Diagnoses Lumbar radiculopathy Procedures Imaging Lumbar/Sacral Selective Nerve Root INJ (TFE) Left (17927) Gregory Roman MD [address] [place] [address] DR MCCAIN [address] [place] [address] Phone: tel: fax: [address] [address] Referral ID Status Reason Start Date Expiration Date Visits Re quested Visits Authorized [id number] Closed 05/06/2024 06/05/2025 1 1 TIC FIXTURE BUILDER Reason for Visit * Diagnostic Imaging (Routine) - Closed Specialty Diagnoses / Procedures Referred By Contac t Referred To Contact Diagnoses Lumbar radiculopathy Procedures Imaging Lumbar/Sacral Selective Nerve Root INJ (TFE) Left (16536) Gregory Roman MD [address] [place] [address] DR MCCAIN [address] [place] [address] Phone: tel: fax: [address] [phone] Referral ID Status Reason Start Date Expiration Date Visits Re quested Visits Authorized [id number] Closed 05/06/2024 06/05/2025 1 1 Encounter Details Date Type Department Care Team (Latest Contact Info) Description 05/25/2024 12:58 PM PLASTIC FIXTURE BUILDER - 05/25/2024 11:59 PM PLASTIC FIXTURE BUILDER Hospital Encounter [facility] 2 [facility] BrownKaushal Olivia. [address] [place] [address] Gregory Roman MD 2 [facility] [address] [place] [address] Lumbar radiculopathy Discharge Disposition: Discharge to home [...] on file Legal Sex Female 6:27 PM PLASTIC FIXTURE BUILDER Gender Identity Not on file Sexual Orientation Not on file documented as of this encounter Last Filed Vital Signs Vital Sign Reading Time Taken Comments Blood Pressure 128/74 05/25/2024 1:56 PM PLASTIC FIXTURE BUILDER Pulse 101 05/25/2024 1:56 PM PLASTIC FIXTURE BUILDER Temperature 36.4 ??C (97.5 ??F) 05/25/2024 1:06 PM CS T Respiratory Rate 18 05/25/2024 1:56 PM PLASTIC FIXTURE BUILDER Oxygen Saturation 96% 05/25/2024 1:56 PM PLASTIC FIXTURE BUILDER Inhaled Oxygen Concentration - - Weight - - Height - - Body Mass Index - - documented in this encounter Discharge Instructions * Discharge Instructions* Naomi Baker RN - 05/25/2024 1:59 PM PLASTIC FIXTURE BUILDER Discharge instructions reviewed. Signed copy given to patient. Patient verbalized understanding. Patient to return as instructed. TIC FIXTURE BUILDER documented in this encounter Medications at Time [...] Use: Not At Risk (09/03/2023) Received from [facility] AUDIT-C Frequency of [...] intervention as previously ordered. Gregory Roman MD [facility] TIC FIXTURE BUILDER documented in this encounter Miscellaneous Notes * [...] Lumbar/Sacral Selective Nerve Root INJ (TFE) Left (20047) Imaging Lumbar/Sacral Selective Nerve Root INJ (TFE) Left ([id number]) Estimated Blood Loss: 0 Procedure Description: Informed [...] score: Pain Score: 7 Gregory Roman MD [facility] TIC FIXTURE BUILDER documented in this encounter Plan of [...] Read Routine (OP Routine) 05/25/2024 1:54 PM PLASTIC FIXTURE BUILDER Lumbar radiculopathy documented in this encounter Results * Imaging Lumbar/Sacral Selective Nerve Root INJ (TFE) Left ([id number]) (05/25/2024 1:54 PM PLASTIC FIXTURE BUILDER) Narrative [facility] - 05/25/2024 1:55 PM PLASTIC FIXTURE BUILDER The images from this study are not [...] at 1335, Intra-Op Given 05/25/2024 1:53 PM PLASTIC FIXTURE BUILDER 10 mg Simone k iohexoL (OMNIPAQUE) 240 mg iodine/mL injection solution As needed, Starting on Thu05/25/24 at 1335, Intra-Op Given 05/25/2024 1:51 PM PLASTIC FIXTURE BUILDER 1 mL Back lidocaine (PF) (XYLOCAINE) 20 mg/mL (2 %) preservative free injection As needed, Starting on Thu05/25/24 at 1335, Intra-Op Given 05/25/2024 1:51 PM PLASTIC FIXTURE BUILDER 1 mL Back documented in this encounter Care Teams Law Researcher Relationship Specialty Start Date End Date Tim Altman MD [address] [place] [address] PCP - General 04/03/11 documented as of this encounter
--- OUTSIDE RECORDS SUMMARY | 2024-06-22 22:03 | XMS_ITS | Encounter Summary ---
Author Organization [facility] Medical Group Address [address] [place] [address] Care Team Providers Care Commission Associate Name Role Phone Tim Altman MD Primary Care Provider +1- [phone] Reason for Visit * Reason Onset Date Comments Test Results 01/13/2018 Encounter Details Date Type Department Care Team (Late st Contact Info) Description 01/13/2018 Telephone [facility] 4 [facility] [address] [place] [address] Karol Weber LPN Test Results Social History Tobacco Use Types Packs/Day Years Used Date Smoking Tobacco: Never Smokeless Tobacco: Never Alcohol Use Standard Drinks/Week Comments No 0 (1 standard drink = 0.6 oz pur e alcohol) Comments No Sex and Gender Information Value Date Recorded Sex Assigned at Not on file 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
--- OUTSIDE RECORDS SUMMARY | 2024-06-22 22:03 | XMS_ITS | Encounter Summary ---
Author Organization [facility] Healthcare Address [address] [place] [address] Care Team Providers Care Spring Up Supervisor Name Role Phone Tim Altman MD Primary Care Provider +1- [phone] Reason for Referral * Diagnostic Imaging (Routine) - Closed Specialty Diagnoses / Procedures Referred By Contac t Referred To Contact Diagnoses Lumbar radiculopathy Procedures Imaging Lumbar/Sacral Selective Nerve Root INJ (TFE) Left ([id number]) Kindra Cardoza MD [address] [place] [address] [place] [address] Phone: tel: fax: [address] [phone] Referral ID Status Reason Start Date Expiration Date Visits Re quested Visits Authorized [id number] Closed 05/06/2024 06/05/2025 1 1 RACTIVE ART DIRECTOR * Consultation (Routine) - Closed Specialty Diagnoses / Procedures Referred By Contac t Referred To Contact Pain Management Diagnoses Lumbar radiculopathy Tim Altman MD [facility] [place] [place] [address] Phone: tel: fax: Kindra Cardoza MD [address] [place] [address] [address] Phone: tel: fax: Referral ID Status Reason Start Date Expiration Date V isits Requested Visits Authorized [id number] Closed Specialty Services Required 03/18/2024 04/17/2025 1 1 Question Answer Please select the performing region: [facility] [[id number]] To provider: KINDRA CARDOZA [[id number]] # of visits: 1 RACTIVE ART DIRECTOR Reason for Visit * Reason Comments Initial Consult Pain * Consultation (Routine) - Closed Specialty Diagnoses / Procedures Referred By Contac t Referred To Contact Pain Management Diagnoses Lumbar radiculopathy Tim Altman MD [address] [place] [address] Phone: tel: fax: Kindra Cardoza MD [address] [place] [address] [address]CC[address] [place], [place] [address], [place] [address] Phone: tel: fax: Referral ID Status Reason Start Date Expiration Date V isits Requested Visits Authorized [id number] Closed Specialty Services Required 03/18/2024 04/17/2025 1 1 Encounter Details Date Type Department Care Team (Latest Contact Info) Description 05/06/2024 3:04 PM INTERACTIVE ART DIRECTOR - 05/06/2024 11:59 PM INTERACTIVE ART DIRECTOR Hospital Encounter [facility] 2 [facility] [address] [place] [address] Kindra Cardoza MD [address] [place] [address] [address] [place] [address] Lumbar radiculopathy (Primary Dx); Closed fracture of [...] on file Legal Sex Female 6:27 PM INTERACTIVE ART DIRECTOR Gender Identity Not on file Sexual Orientation Not on file documented as of this encounter Last Filed Vital Signs Vital Sign Reading Time Taken Comments Blood Pressure 120/72 05/06/2024 3:53 PM INTERACTIVE ART DIRECTOR Pulse 69 05/06/2024 3:53 PM INTERACTIVE ART DIRECTOR Temperature - - Respiratory Rate 16 05/06/2024 3:53 PM INTERACTIVE ART DIRECTOR Oxygen Saturation 98% 05/06/2024 3:53 PM INTERACTIVE ART DIRECTOR Inhaled Oxygen Concentration - - Weight - - Height - - Body Mass Index - - documented in this encounter Discharge Instructions * Attachments The following attachments cannot be sent through Care Everywhere. * Epidural Steroid Injection (General Information) (Azerbaijani) documented in this encounter Medications at Time [...] Lumbar/Sacral Selective Nerve Root INJ (TFE) Left (13903) Ambulatory referral to Pain Management Medications: None Follow up: For procedure Patient Name: Lexi Mcneil Age: 68 y.o. [facility] New Patient Visit Subjective Lexi [...] [] Fioricet [] Meloxicam [] Carbamazepine [] [place] [] Fentanyl [] Metaxalone [] Diclofenac [] [...] procedure. Kindra Cardoza MD Interventional Pain Management [facility] PLAN JUSTIFICATION History and physical exam [...] expressed understanding and is willing to proceed. [facility] Best Practice documentation Blood pressure in clinic [...] spent a total of 20 minutes of pcp-ttim-ap-face time performing a review of the recordand/or discussion with the patient/caregiver as described above. Total time spent with patient 30 minutes, total time in counseling 20 minutes. LIFE CYCLE ASSESSMENT ANALYST: Blocker And Polisher Gold Wheel completed with Fluency Direct, dictation proofread to best of my ability. RACTIVE ART DIRECTOR documented in this encounter Nursing Notes * Janice Pace RN - 05/06/2024 3:30 PM CST Level 2 Escorted patient to exam room. Obtained vital signs. Reviewed patient's allergies and current medications. Obtained and verified patient's simple medical/surgical history. Confirmed the reason for visit with the patient. Obtained the following screening assessments: [x] Modified Oswestry Low Back Pain Questionnaire [] [facility] Intake Questionnaire [] [facility] Follow up Questionnaire [] Fall Risk Assessment (Lor Babin Steadi) [x] Depression/Anxiety Assessment (GAD7, PHQ-9, [place] Suicide, [place] Depression) [] Disability Scale [] [...] and care coordination was approximately 11-20 minutes. RACTIVE ART DIRECTOR documented in this encounter Miscellaneous Notes * Addendum Note - Janice Pace RN - 05/06/2024 3:30 PM CSTEncounter addended by: Janice Pace RN on: 05/10/2024 5:45 PM Actions taken: Level of Service modified, Charge Capture section accepted RACTIVE ART DIRECTOR documented in this encounter Plan of Treatment [...] Lumbar/Sacral Selective Nerve Root INJ (TFE) Left ([id number]) (05/25/2024 1:54 PM INTERACTIVE ART DIRECTOR) Narrative [facility] - 05/25/2024 1:55 PM INTERACTIVE ART DIRECTOR The images from this study are not [...] daily added in this encounter Care Teams Spring Up Supervisor Relationship Specialty Start Date End Date Tim Altman MD [address] [place] [address] PCP - General 04/03/11 documented as of this encounter
--- OUTSIDE RECORDS SUMMARY | 2024-06-22 22:03 | XMS_ITS | Encounter Summary ---
Author Organization [facility] Medical Group Address [address] [place] [address] Care Team Providers Care Metallurgy Teacher Name Role Phone Tim Altman MD Primary Care Provider +1- [phone] Reason for Visit * Reason Comments Gynecologic Exam Encounter Details Date Type Department Care Team (Late st Contact Info) Description 12/11/2016 1:00 PM CDT Office Visit [facility] [address] [facility] [address] [place] [address] Marilyn Campos, KARTHIK [address] 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 Gender Identity Not on file Sexual Orientation [...] Laterality Modality Breast Bilateral Mammography Marilyn Campos NETWORK SYSTEMS ENGINEER IMG MAMMO PROCEDURES Bety l Result * POCT occult blood stool (12/11/2016 1:58 PM CDT) Fecal occult blood, POC Negative Lot Number [id number] QC Control Line Acceptable Stool 12/11/2016 1:58 PM CDT Marilyn Campos NETWORK SYSTEMS ENGINEER POINT OF CARE TEST ORDERA BLES Final Result * MAMMOGRAPHY (12/05/2015) HM Mammogram Normal Anatomical Region Laterality Modality Other Result [facility] Historical Provider HEALTH MAINTENANCE Final Result * [...] daily. added in this encounter Care Teams Metallurgy Teacher Relationship Specialty Start Date End Date Tim Altman MD [address] [place] [address] PCP - General 04/03/11 documented as of this encounter
--- OUTSIDE RECORDS SUMMARY | 2024-06-22 22:03 | XMS_ITS | Clinical Summary ---
Author Organization [facility] Address [address] [place] [address] Care Team Providers Care Guide Plant Name Role Phone Tim Altman MD Primary Care Provider +1- [phone] Allergies Active Allergy Reactions Criticality Noted Date [...] Department Care Team Description 05/25/2024 12:58 PM MAIL DISTRIBUTOR - 05/25/2024 11:59 PM MAIL DISTRIBUTOR Hospital Encounter [facility] [address] [place] [address] A, Kaushal. [address] [place] [address] Gregory Roman MD Lumbar radiculopathy Discharge Disposition: Discharge to home or self care 05/06/2024 3:04 PM MAIL DISTRIBUTOR - 05/06/2024 11:59 PM MAIL DISTRIBUTOR Hospital Encounter [facility] [address] [place] [address] A, Kaushal. [address] [place] [address] Gregory Roman MD Lumbar radiculopathy (Primary Dx); [...] on file Legal Sex Female 6:27 PM MAIL DISTRIBUTOR Gender Identity Not on file Sexual Orientation Not on file Obstetrics History Para Term AB IAB SAB Ectopic Multiple Livin g Live Births 2 2 2 Date Outcome GA Total Labor Labor/2nd/3rd Weight Sex Type Anes PTL Raya A1 A5 Name Clin Para Para Last Filed Vital Signs Vital Sign Reading Time Taken Comments Blood Pressure 128/74 05/25/2024 1:56 PM MAIL DISTRIBUTOR Pulse 101 05/25/2024 1:56 PM MAIL DISTRIBUTOR Temperature 36.4 ??C (97.5 ??F) 05/25/2024 1:06 PM CS T Respiratory Rate 18 05/25/2024 1:56 PM MAIL DISTRIBUTOR Oxygen Saturation 96% 05/25/2024 1:56 PM MAIL DISTRIBUTOR Inhaled Oxygen Concentration - - Weight 92.2 [...] Read Routine (OP Routine) 05/25/2024 1:54 PM MAIL DISTRIBUTOR Lumbar radiculopathy STOOL DNA ? COLOGUARD Routine 05/20/2021 6:25 AM MAIL DISTRIBUTOR Screening for colon cancer DEXA AXIAL SKELETON BONE DENSITY 1 OR MORE SITES Schedule Routine, Read Routine (OP Routine) 12/18/2020 MAMMOGRAPHY Schedule Routine, Read Routine (OP Routine) 07/17/2020 from Last 3 Months or Most Recently Relevant to Health Maintenance Results * Imaging Lumbar/Sacral Selective Nerve Root INJ (TFE) Left ([id number]) (05/25/2024 1:54 PM MAIL DISTRIBUTOR) Narrative [facility] - 05/25/2024 1:55 PM MAIL DISTRIBUTOR The images from this study are not interpreted by Radiology. ??Please refer to the physician's procedure / OR operative note. us Gregory Roman MD IM PAIN MGMT PROCEDURE S Final Result [facility] * Stool DNA - Cologuard (05/20/2021 6:25 AM MAIL DISTRIBUTOR) Stool DNA - Cologuard Negative Negative MaPS (CLIA #:[id number]) Comment: NEGATIVE TEST RESULT. A negative Cologuard [...] cancer. ??Following a negative Cologuard result, the [place] Cancer Society and U.S. Multi-Society Task Force screening guidelines recommend a Cologuard re-screening interval of 3 years. References: [place] [employer] Society Guideline for Colorectal Cancer Screening: https://www.cancer.org/cancer/ugnzl-cperqi-dqfipx/izanojgph-zffukiaov-zksvitl/ac s-rec ommendations.html.; Uriah PRINCE, Karina HARTMANN, Kamlesh VillalpandoK, Colorectal Cancer Screening: Recommendations for Physicians and Patients from the U.S. Multi-Society Task Force on Colorectal Cancer Screening , Am J Gastroenterology 2017; 112:6231-3485. TEST DESCRIPTION: Composite algorithmic analysis of stool [...] (Mumtaz Echeverria al, N Engl J Med 2014;370(14):4245-1836.) Cologuard may produce a false negative or false positive result (no colorectal cancer or precancerous polyp present at colonoscopy follow up). A negative Cologuard test result does not guarantee the absence of CRC or advanced adenoma (pre-cancer). The current Cologuard screening interval is every 3 years. ([place] Cancer Society and U.S. Multi-Society Task Force). Cologuard performance data in a 10,000 patient pivotal study using colonoscopy as the reference method can be accessed at the following location: www.Bamatea/results. Additional description of the Cologuard test process, warnings and precautions can be found at www.Max EndoscopyogiSpot.tvrd.com. Stool 05/20/2021 6:25 AM MAIL DISTRIBUTOR 05/21/2021 12:01 PM MAIL DISTRIBUTOR Marilyn Campos NP LAB BODY FLUIDS AND STOOL S ORDERABLES Final Result Performing Organization Address City/State/[facility] Co de Phone Number [employer] (CLIA #:[id number]) [place] [address] * Dexa Axial Skeleton Bone Density 1 or 2 Site (12/18/2020) Anatomical Region Laterality Modality Body N/A Radiographic Irma ging Marilyn Campos BUSINESS SERVICES COORDINATOR IMG DXA PROCEDURES Final Result * MAMMOGRAPHY (07/17/2020) Anatomical Region Laterality Modality Breast Mammography Marilyn Campos BUSINESS SERVICES COORDINATOR IMG MAMMO PROCEDURES Bety l Result from Last 3 Months or Most Recently Relevant to Health Maintenance Insurance [facility] [place]ANGE MEDICARE [facility] MEDICARE [facility] Care Teams Guide Plant Relationship Specialty Start Date End Date Tim Altman MD [address] [place] [address] PCP - General 04/03/11
--- OUTSIDE RECORDS SUMMARY | 2024-06-22 22:03 | XMS_ITS | Encounter Summary ---
Author Organization [facility] Healthcare Address [address] [place] [address] Care Team Providers Care Is Analyst Name Role Phone Unavailable Primary Care Provider Unavailabl e Encounter Details Date Type Department Care Team (Late st Contact Info) Description 06/15/2010 12:01 AM POSITIVE PRINTER OPERATOR - 07/15/2010 11:59 PM POSITIVE PRINTER OPERATOR Hospital Encounter [facility] Lynda Bhakta MD Encounter for other physical therapy; Aftercare following other surgery of nervous system Social History Tobacco Use Types Packs/Day Years Used Date Smoking Tobacco: Never Assessed Comments Unknown Sex and Gender Information Value Date Recorded Sex Assigned at Not on file Legal Sex Female 6:27 PM POSITIVE PRINTER OPERATOR Gender Identity Not on file Sexual Orientation Not on file documented as of this encounter Plan of Treatment Not on file documented as of this encounter Visit Diagnoses Diagnosis Encounter for other physical therapy Aftercare following other surgery of nervous system documented in this encounter
--- OUTSIDE RECORDS SUMMARY | 2024-06-22 22:03 | XMS_ITS | Encounter Summary ---
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 Pt is not prescribed any meds from office. Please advise should pt proceed with wwe this year? documented in this encounter Plan of Treatment Not on file documented as of this encounter Visit Diagnoses Not on filedocumented in this encounter Care Teams Spider Assembler Relationship Specialty Start Date End Date Tim Altman MD [address] [place] [address] PCP - General 04/03/11 documented as of this encounter
--- OUTSIDE RECORDS SUMMARY | 2024-06-22 22:03 | XMS_ITS | Encounter Summary ---
Author Organization [facility] Medical Group Address [address] [place] [address] Care Team Providers Care Rn Gastroenterology Name Role Phone Tim Altman MD Primary Care Provider +1- [phone] Encounter Details Date Type Department Care Team (Late st Contact Info) Description 01/10/2019 Telephone [facility] [address] [facility] [address] [place] [address] Cristina Hussein LPN Social History Tobacco Use Types Packs/Day Years Used Date Smoking Tobacco: Never Smokeless Tobacco: Never Alcohol Use Standard Drinks/Week Comments No 0 (1 standard drink = 0.6 oz pur e alcohol) Comments No Sex and Gender Information Value Date Recorded Sex Assigned at Not on file 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
--- OUTSIDE RECORDS SUMMARY | 2024-06-22 22:03 | XMS_ITS | Encounter Summary ---
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
--- OUTSIDE RECORDS SUMMARY | 2024-06-22 22:03 | XMS_ITS | Encounter Summary ---
Author Organization [facility] Address [address] [place] [address] Care Team Providers Care Quarter Doper Name Role Phone Tim Altman MD Primary Care Provider +1- [phone] Reason for Visit * Reason Onset Date Comments Test Results 06/11/2021 Encounter Details Date Type Department Care Team (Late st Contact Info) Description 06/11/2021 Telephone [facility] [address] [place] [address] Mavis Alvarado MA Test Results [...] on file Legal Sex Female 6:27 PM INDUSTRIAL MANUFACTURING TECHNICIAN Gender Identity Not on file Sexual Orientation Not on file documented as of this encounter Miscellaneous Notes * Telephone Encounter - Marilyn Campos NP - 06/11/2021 1:30 PM INDUSTRIAL MANUFACTURING TECHNICIAN Noted and agree. STRIAL MANUFACTURING TECHNICIAN * Telephone Encounter - Mavis Alvarado MA - 06/11/2021 12:02 PM INDUSTRIAL MANUFACTURING TECHNICIAN Pt called today requesting results for Cologuard and Dexa. Cologuard negative. Dexa showed low bonemass advised pt to take 600 mg calcium and 2000 Ius Vitamin d with a fatty snack and weight bearingexercising 3-4 times a wk like walking or free weights. Pt verbalized understanding. STRIAL MANUFACTURING TECHNICIAN documented in this encounter Plan of Treatment Not on file documented as of this encounter Visit Diagnoses Not on filedocumented in this encounter Care Teams Quarter Doper Relationship Specialty Start Date End Date Tim Altman MD [address] [place] [address] PCP - General 04/03/11 documented as of this encounter
--- OUTSIDE RECORDS SUMMARY | 2024-06-22 22:03 | XMS_ITS | Encounter Summary ---
Author Organization [facility] Address [address] [place] [address] Care Team Providers Care Fiberline Supervisor Name Role Phone Tim Altman MD Primary Care Provider +1- [phone] Encounter Details Date Type Department Care Team (Late st Contact Info) Description 02/08/2018 Orders Only [facility] [address] [place] [address] Tim Altman MD [address] [place] [address] Social History Tobacco Use Types Packs/Day Years Used Date Smoking Tobacco: Never Smokeless Tobacco: Never Alcohol Use Standard Drinks/Week Comments No 0 (1 standard drink = 0.6 oz pur e alcohol) Comments No Sex and Gender Information Value Date Recorded Sex Assigned at Not on file 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
--- OUTSIDE RECORDS SUMMARY | 2024-06-22 22:03 | XMS_ITS | Encounter Summary ---
Author Organization [facility] Address [address] [place] [address] Care Team Providers Care Touch Up Carver Name Role Phone Tim Altman MD Primary Care Provider +1- [phone] Reason for Referral * Diagnostic Lab (Routine) - Closed Specialty Diagnoses / Procedures Referred By Contac t Referred To Contact Lab Diagnoses Well woman exam Procedures Imaging Pap and HPV mRNA E6/E7 Lucía Berger NP Phone: tel: fax: Referral ID Status Reason Start Date Expiration Date Visits Re quested Visits Authorized [id number] Closed 12/17/2017 06/28/2019 1 1 * Diagnostic Imaging (Routine) - Closed Specialty Diagnoses / Procedures Referred By Contac t Referred To Contact Diagnoses Screening for osteoporosis Procedures Dexa Axial Skeleton Bone Density 1 or 2 Site Lucía Berger NP Phone: tel: fax: External Order Referral ID Status Reason Start Date Expiration Date Visits Re quested Visits Authorized [id number] Closed 12/17/2017 06/28/2019 1 1 Reason for Visit * Reason Comments Gynecologic Exam Encounter Details Date Type Department Care Team (Late st Contact Info) Description 12/17/2017 8:45 AM CDT Office Visit [address] [place] [address] Lucía Berger NP [address] [place] [address] [address] [address] Well woman exam (Primary Dx); Screening for [...] file 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 Head Of Digital [facility] [place] Comment: YQ, CT(ASCP) CT screening location: [place] [address] [place] [id number] Review soda column operator [facility] - Comment:Result canceled by [...] High Risk E6/E7 Not Detected Not Detected [facility] - Comment: This test was performed using the APTIMA HPV Assay ([employer] This assay detects E6/E7 viral messenger RNA (mRNA) from 14 high-risk HPV types (16,18,31,33,35,39,45,51,52,56,58,59,66,68). The analytical performance characteristics of this assay have been determined by [employer]. The modifications have not been cleared or approved by the FDA. This assay has been validated pursuant to the CLIA regulations and is used for clinical purposes. Endocervical 12/17/2017 10:4 5 AM CDT 12/18/2017 5:28 AM CDT Narrative Resulting Agency Comment Performing Organization Information: ?Site ID: ?[facility] ?Address: [facility] [address] [place] [address] ?Director: Agustina Mccarty us Lucía Berger NP LAB PATHOLOGY ORDERABLES Final R esult [facility] - [place] Ree[place] documented in this encounter Visit Diagnoses Diagnosis [...] 12/30/2018 added in this encounter Care Teams Touch Up Carver Relationship Specialty Start Date End Date Tim Altman MD [address] [place] [address] PCP - General 04/03/11 documented as of this encounter
--- OUTSIDE RECORDS SUMMARY | 2024-06-22 22:03 | XMS_ITS | Encounter Summary ---
Author Organization [facility] Address [address] [place] [address] Care Team Providers Care Refrigerating Engineer Name Role Phone Tim Altman MD Primary Care Provider +1- [phone] Reason for Visit * Reason Onset Date Comments RACKER OCTAVE BOARD Problem 12/21/2017 vaginal itching Encounter Details Date Type Department Care Team (Late st Contact Info) Description 12/21/2017 Telephone [facility] [address] [place] [address] Mavis Alvarado MA RACKER OCTAVE BOARD Problem (vaginal itching) Social History Tobacco Use Types Packs/Day Years Used Date Smoking Tobacco: Never Smokeless Tobacco: Never Alcohol Use Standard Drinks/Week Comments No 0 (1 standard drink = 0.6 oz pur e alcohol) Comments No Sex and Gender Information Value Date Recorded Sex Assigned at Not on file 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
--- OUTSIDE RECORDS SUMMARY | 2024-06-22 22:03 | XMS_ITS | Encounter Summary ---
Author Organization [facility] Address [address] [place] [address] Care Team Providers Care Hostel Parent Name Role Phone Tim Altman MD Primary Care Provider +1- [phone] Encounter Details Date Type Department Care Team (Late st Contact Info) Description 03/07/2011 12:01 AM CDT - 03/14/2011 11:59 PM CDT Hospital Encounter [place] [address] [address] Encounter for other physical therapy; Effusion of lower leg joint Social History Tobacco Use Types Packs/Day Years Used Date Smoking Tobacco: Never Alcohol Use Standard Drinks/Week Comments No 0 (1 standard drink = 0.6 oz pur e alcohol) Comments Unknown Sex and Gender Information Value Date Recorded Sex Assigned at Not on file 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
== END 2024-06-17 14:25 | disposition home or self-care (01) ==
LOC: ANHSURGERY 07:31 → ANH3MEDSUR 15:31
PROVIDERS: Physician Assistant Surgical; PCP Internal Medicine; Visit Provider Orthopaedic Surgery
PROC: (CPT 27447; principal; 2024-06-16 10:30)
DX: M17.12 Unilateral primary osteoarthritis, left knee (principal); M25.762 Osteophyte, left knee; G90.522 Complex regional pain syndrome I of left lower limb; E78.5 Hyperlipidemia, unspecified; I10 Essential (primary) hypertension; G47.00 Insomnia, unspecified; K21.9 Gastro-esophageal reflux disease without esophagitis; M81.0 Age-related osteoporosis without current pathological fracture; M41.86 Other forms of scoliosis, lumbar region; E66.9 Obesity, unspecified; Z68.31 Body mass index [BMI] 31.0-31.9, adult; Z79.891 Long term (current) use of opiate analgesic; Z79.620 Long term (current) use of immunosuppressive biologic; Z79.52 Long term (current) use of systemic steroids; Z79.82 Long term (current) use of aspirin; Z98.890 Other specified postprocedural states; Z87.891 Personal history of nicotine dependence; Z80.9 Family history of malignant neoplasm, unspecified; Z82.49 Family history of ischemic heart disease and other diseases of the circulatory system
CPT/HCPCS: 27447; 36415; 73560; 80048; 85025; 97110; 97161; 97165; 97535; A9270; C1713; C1776; J0171; J0690; J1100; J1171; J1885; J1940; J2003; J2175; J2405; J2704; J2795; J3010; J3370; J7030; J7120; J7512